=== PATIENT | male | born 1935 | race Caucasian/White ===

== ENCOUNTER → 2017-03-25 | Outpatient (CLI) | payer BC, OTHER ==
[~2017-03-25] MED LIST: ASCO1CAP3 PO; ASCO500T16 PO; ASPI-113 PO; ASPI325T45 PO; ATEN-173 PO; ATEN25TA PO; ATOR-24 PO; B-COCAP2 PO; B-COTAB18 PO; CETI10TA84 PO; CHOL1000 PO; CHOL100027 PO; CRANPOW PO; DOCU100C PO; HMLI SC; INSDGIPEN SC; INSU100I2 SQ; INSU1INJ7 SC; LISI-729 PO; LISI10TA PO; LPT/40 PO; LUCENTIS IO; NITR0.4S UT; NTRGSL/4 UT; OMEG10007 PO; RANI150T3 PO; RANI300T2 PO; TRIA1SPR4; fluticasone PO
[2017-03-25 09:41] LABS: HEMATOCRIT 42.4 % (42-52); MEAN CELL VOLUME 99.1 fL (80-100); MEAN CORPUSCULAR HEMOGLOBIN 33.2 pg (25-34); MEAN CORPUSCULAR HGB CONC 33.5 g/dl (32-36); MEAN PLATELET VOLUME 9.7 fL (7.4-10.4); PLATELET COUNT 143 K/uL (130-400); RED BLOOD COUNT 4.28 M/uL (4.7-6.1); WHITE BLOOD COUNT 3.83 K/uL (4.8-10.8)
[2017-03-25 09:50] LABS: ESTIMATED AVERAGE GLUCOSE 143 mg/dl; HA1C FLAG Normal (Normal)
[2017-03-25 09:59] LABS: BLOOD UREA NITROGEN 22 mg/dl (7-18); BUN/CREATININE RATIO 25.4 (10-20); CALCIUM 9.2 mg/dl (8.5-10.1); CARBON DIOXIDE 31 mmol/L (21-32); CHLORIDE 106 mmol/L (98-107); CREATININE 0.87 mg/dl (0.60-1.40); GLUCOSE 153 mg/dl (70-99); POTASSIUM 4.1 mmol/L (3.5-5.1); SODIUM 140 mmol/L (136-145)
[2017-03-25 10:23] LABS: RATIO 43.4 mcg/mg (0-30.0)
== END | disposition home or self-care (01) ==
LOC: C.LAB 07:28
PROVIDERS: ATTEND Nurse Practitioner Family
DX: E11.49 Type 2 diabetes mellitus with other diabetic neurological complication (principal); I10 Essential (primary) hypertension

== ENCOUNTER 2017-07-04 08:15 | Inpatient (IN) | payer BC, OTHER ==
[~2017-07-04] VITALS: Ht 177.8 cm; Wt 95.6 kg
[~2017-07-04 08:15] MED LIST changes: -ASCO1CAP3 PO; -ASPI325T45 PO; -ATEN-173 PO; -ATOR-24 PO; -B-COTAB18 PO; -CHOL1000 PO; -DOCU100C PO; -INSDGIPEN SC; -INSU100I2 SQ; -LISI-729 PO; -LISI10TA PO; -NTRGSL/4 UT; -RANI150T3 PO
[2017-07-04 09:21] LABS: BASO % 0.5 %; BASO ABS # 0.02 K/uL (0-0.2); COMPLETE YES; EOS % 4.3 %; HEMATOCRIT 40.3 % (42-52); IG% 0.2 %; LYMPH % 25.6 %; LYMPH ABS # 1.06 K/uL (1.2-3.4); MEAN CELL VOLUME 97.6 fL (80-100); MEAN CORPUSCULAR HEMOGLOBIN 34.4 pg (25-34); MEAN CORPUSCULAR HGB CONC 35.2 g/dl (32-36); MEAN PLATELET VOLUME 9.5 fL (7.4-10.4); MONO % 9.7 %; NEUT % 59.7 %; PLATELET COUNT 153 K/uL (130-400); RED BLOOD COUNT 4.13 M/uL (4.7-6.1); WHITE BLOOD COUNT 4.14 K/uL (4.8-10.8)
[2017-07-04 09:28] LABS: BUN/CREATININE RATIO 26.6 (10-20); CALCIUM 8.9 mg/dl (8.5-10.1); CREATININE 0.85 mg/dl (0.60-1.40); POTASSIUM 3.7 mmol/L (3.5-5.1)
[2017-07-04 09:33] LABS: CKMB/CK RATIO 1.3 (0-3.0)
[2017-07-04 09:34] LABS: PROTHROMBIN TIME (PATIENT) 10.7 SECONDS (9.0-12.0)
--- NOTE | 2017-07-04 09:53 | DIAGNOSTIC IMAGING REPORT ---
CHEST ONE VIEW PORTABLE CLINICAL HISTORY: Fever. Chest pain. Sepsis. COMPARISON STUDY: Chest radiograph July 08, 2012. FINDINGS: The patient is rotated. No pneumothorax or pleural effusion is present. Mild cardiomegaly is noted without evidence of pulmonary edema. No consolidation is identified. IMPRESSION: 1. No acute cardiopulmonary findings. 2. Mild cardiomegaly. Electronically signed by: Óscar Stubbs M.D. 07/04/2017 9:51 AM Dictated Date/Time: 07/04/2017 9:50 AM
--- NOTE | 2017-07-04 11:00 | EMERGENCY ROOM VISIT NOTE ---
History Report prepared by Faustoibleeann: Annika Parry Under the Supervision of: Dr. Bruno Cotto D.O. First contact with patient: 09:00 Chief Complaint: CHEST PAIN Stated Complaint: CHEST PAINS, SWEATING Nursing Triage Summary: triage note: pt reports this am at approx 0745 he started to have mid chest pain. pt reports hx of mi in 1999 with one stent placed. History of Present Illness The patient is a 82 year old male who presents to the Emergency Room with complaints of chest pain that started at 0800 this morning. He reports the pain is located in the middle of his chest and rates his discomfort as a 4/10 in severity, describing it as feeling light "tightness". He was sitting in a chair when his pain started. 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 The patient has a history of an PA in 1999 and reports he had one stent placed afterwards. He denies any previous history of atrial fibrillation. His current Psychologist Industrial Organizational is Dr. Yao with [facility]. The patient admits he has been "stretching and working out" recently and is not sure if that is related to his current symptoms. Source of History: patient Onset: 0800 Position: chest Symptom Intensity: 4/10 Quality: other ("tightness") Timing: resolved Review of Systems See HPI for pertinent positives & negatives. A total of 10 systems reviewed and were otherwise negative. Past Medical & Surgical Medical Problems: (1) CALCULUS OF KIDNEY (2) CALCULUS OF URETER (3) CORONARY ATHEROSCLEROSIS OF [place] CORONARY VESSEL (4) DIAB LIZ WO COMPL, TYPE II OR UNSPEC TYPE, NOT UNCNTRLD (5) HYPERLIPIDEMIA NEC/NOS (6) Myocardial infarction (7) Pancytopenia (8) SEPSIS (9) SEPTICEMIA NOS Social History Smoking Status: Former Smoker Alcohol Use: none Allergies Coded Allergies: No Known Allergies (Verified , 07/08/12) Physical Exam Vital Signs Date Time Temp Pulse Resp B/P (MAP) Pulse Ox O2 Delivery O2 Flow Rate FiO2 07/04/17 10:05 52 16 137/68 94 Room Air 07/04/17 09:36 56 152/72 93 Room Air 07/04/17 09:36 93 Room Air 07/04/17 09:04 62 07/04/17 08:32 96 Room Air 07/04/17 08:28 36.7 74 20 183/76 93 Room Air Physical Exam CONSTITUTIONAL/VITAL SIGNS: Reviewed / noted above. GENERAL: Non-toxic in appearance. INTEGUMENTARY: Warm, dry, and [place]. HEAD: Normocephalic. EYES: without scleral icterus or trauma. ENT/OROPHARYNX: clear and moist. LYMPHADENOPATHY/NECK: Is supple without lymphadenopathy or meningismus. RESPIRATORY: Lungs clear and equal. CARDIOVASCULAR: Regular rate and rhythm. GI/ABDOMEN: Soft and nontender. No organomegaly or pulsatile mass. No rebound or guarding. Normal bowel sounds. EXTREMITIES: Warm and well perfused. BACK: No CVA tenderness. NEUROLOGICAL: Intact without focal deficits. PSYCHIATRIC: normal affect. MUSCULOSKELETAL: Normally developed with good muscle tone. Medical Decision & Procedures ER Provider Diagnostic Interpretation: Radiology results as stated below per my review and radiologist interpretation: CHEST ONE VIEW PORTABLE CLINICAL HISTORY: Fever. Chest pain. Sepsis. COMPARISON STUDY: Chest radiograph July 08, 2012. FINDINGS: The patient is rotated. No pneumothorax or pleural effusion is present. Mild cardiomegaly is noted without evidence of pulmonary edema. No consolidation is identified. IMPRESSION: 1. No acute cardiopulmonary findings. 2. Mild cardiomegaly. Electronically signed by: Óscar Stubbs M.D. 07/04/2017 9:51 AM Laboratory Results 07/04/17 08:40 Red Blood Count 4.13, Mean Corpuscular Volume 97.6, Mean Corpuscular Hemoglobin 34.4, Mean Corpuscular Hemoglobin Concent 35.2, Mean Platelet Volume 9.5, Neutrophils (%) (Auto) 59.7, Lymphocytes (%) (Auto) 25.6, Monocytes (%) (Auto) 9.7, Eosinophils (%) (Auto) 4.3, Basophils (%) (Auto) 0.5, Neutrophils # (Auto) 2.47, Lymphocytes # (Auto) 1.06, Monocytes # (Auto) 0.40, Eosinophils # (Auto) 0.18, Basophils # (Auto) 0.02 07/04/17 08:40 Test 07/04/17 08:40 White Blood Count 4.14 K/uL (4.8-10.8) Red Blood Count 4.13 M/uL (4.7-6.1) Hemoglobin 14.2 g/dL (14.0-18.0) Hematocrit 40.3 % (42-52) Mean Corpuscular Volume 97.6 fL (80-100) Mean Corpuscular Hemoglobin 34.4 pg (25-34) Mean Corpuscular Hemoglobin Concent 35.2 g/dl (32-36) Platelet Count 153 K/uL (130-400) Mean Platelet Volume 9.5 fL (7.4-10.4) Neutrophils (%) (Auto) 59.7 % Lymphocytes (%) (Auto) 25.6 % Monocytes (%) (Auto) 9.7 % Eosinophils (%) (Auto) 4.3 % Basophils (%) (Auto) 0.5 % Neutrophils # (Auto) 2.47 K/uL (1.4-6.5) Lymphocytes # (Auto) 1.06 K/uL (1.2-3.4) Monocytes # (Auto) 0.40 K/uL (0.11-0.59) Eosinophils # (Auto) 0.18 K/uL (0-0.5) Basophils # (Auto) 0.02 K/uL (0-0.2) RDW Standard Deviation 47.2 fL (36.4-46.3) RDW Coefficient of Variation 13.4 % (11.5-14.5) Immature Granulocyte % (Auto) 0.2 % Immature Granulocyte # (Auto) 0.01 K/uL (0.00-0.02) Prothrombin Time 10.7 SECONDS (9.0-12.0) Prothromb Time International Ratio 1.0 (0.9-1.1) Activated Partial Thromboplast Time 26.6 SECONDS (21.0-31.0) Partial Thromboplastin Ratio 1.0 Anion Gap 8.0 mmol/L (3-11) Est Creatinine Clear Calc Drug Dose 77.5 ml/min Estimated GFR () 94.0 Estimated GFR (Non- 81.1 BUN/Creatinine Ratio 26.6 (10-20) Calcium Level 8.9 mg/dl (8.5-10.1) Total Bilirubin 0.6 mg/dl (0.2-1) Direct Bilirubin 0.2 mg/dl (0-0.2) Aspartate Amino Transf (AST/SGOT) 21 U/L (15-37) Alanine Aminotransferase (ALT/SGPT) 29 U/L (12-78) Alkaline Phosphatase 78 U/L (45-117) Total Creatine Kinase 198 U/L (39-308) Creatine Kinase MB 2.5 ng/ml (0.5-3.6) Creatine Kinase MB Ratio 1.3 (0-3.0) Troponin I 0.015 ng/ml (0-0.045) Total Protein 6.8 gm/dl (6.4-8.2) Albumin 3.8 gm/dl (3.4-5.0) Lipase 62 U/L (73-393) Laboratory results as stated above per my review. ECG Indication: chest pain Rate (beats per minute): 68 Rhythm: atrial fibrillation Findings: LBBB, no acute ischemic change Comparison ECG Date: Atrial fibrilaltion is new from EKG on 07/08/2012 Change: Repeat EKG on 07/04/2017: Atrial flutter, rate of 55, 3rd degree heart block, variable conduction, left bundle branch block. ED Course 0907: Previous medical records were reviewed. The patient was evaluated in room B5. A complete history and physical examination was performed. 1053: I reevaluated the patient. He is resting comfortably. I discussed my recommendation he stay in the hospital for further evaluation and management and he verbalized complete understanding and agreement. 1055: I discussed the patients case with Dr. Franklin, [facility] Hospitalist. The patient will be further evaluated. Medical Decision The differential was considered includes acute myocardial infarction, acute coronary syndrome, myocarditis, pericarditis, pericardial effusions /tamponade, esophageal perforation, thoracic aortic dissection, pulmonary embolism, pneumonia, pneumothorax, pancreatitis, shingles, acute cholecystitis, perforated abdominal viscus. This is an 82-year-old male who presents to the ED with a chief complaint of tightness in his chest. He states that his symptoms are similar to when he required a stent in 1999. The patient states that his symptoms started around 8 AM today and then ended about 30 minutes after he arrives here. The patient denies a history of atrial fibrillation or atrial flutter. He denies any other associated symptoms. No recent illness or fevers. Does have a history of hypertension and diabetes. The patient's exam was unremarkable other than an irregular heartbeat. His EKGs reveal A. fib/A flutter with a normal rate. This is new onset for the patient. Laboratory studies did not reveal any significant abnormalities. He is not anemic. Troponin was negative. Because of the onset of A. fib/A flutter and chest discomfort similar to his previous cardiac event, he will be seen by the hospitalist for further inpatient evaluation and care. He has seen Dr. Yao in the past. Medication Reconcilliation Current Medication List: was personally reviewed by me Blood Pressure Screening Patient's blood pressure: Elevated blood pressure Blood pressure disposition: Referred to PCP (This will addressed by the hospital medicine team) Consults Time Called: 1053 Consulting Physician: Dr. Franklin, [facility] Hospitalist Returned Call: [phone] I discussed the patients case with Dr. Franklin, [facility] Hospitalist. The patient will be further evaluated. Impression Primary Impression: Retrosternal chest pain Additional Impression: New onset atrial flutter Scribe Attestation The scribe's documentation has been prepared under my direction and personally reviewed by me in its entirety. I confirm that the note above accurately reflects all work, treatment, procedures, and medical decision making performed by me. Departure Information Dispostion Being Evaluated By Hospitalist Referrals Kd Bryant M.D. (PCP) Patient Instructions My [facility] Problem Qualifiers
[2017-07-04] MEDS ORDERED: ASCO1CAP3 PO (11:03)
[2017-07-04] MEDS ORDERED: ATOR-24 PO (11:03)
[2017-07-04] MEDS ORDERED: INSU100I2 SQ (11:03)
[2017-07-04] MEDS ORDERED: LISI-729 PO (11:03)
[2017-07-04] MEDS ORDERED: RANI150T3 PO (11:03)
[2017-07-04] MEDS ORDERED: INSDGIPEN SC (11:03)
[2017-07-04] MEDS ORDERED: CHOL1000 PO (11:03)
[2017-07-04] MEDS ORDERED: OMEG10007 PO (11:03)
[2017-07-04] MEDS ORDERED: ASPI325T45 PO (11:03)
[2017-07-04] MEDS ORDERED: B-COTAB18 PO (11:03)
[2017-07-04] MEDS ORDERED: ATEN-173 PO (11:03)
[2017-07-04] MEDS ORDERED: NTRGSL/4 UT (11:03)
[2017-07-04] MEDS ORDERED: DOCU100C PO (11:19)
[2017-07-04] MEDS ORDERED: ALUMINUM/MAGNESIUM/SIMETH (MAALOX MAX) 30 ML UDC PO PRN (11:45)
[2017-07-04] MEDS ORDERED: GLUCAGON FOR INJ 1 MG VIAL SQ PRN (11:45)
[2017-07-04] MEDS ORDERED: POLYETHYLENE (MIRALAX) 17 GM PACK PO PRN (11:45)
[2017-07-04] MEDS ORDERED: ACETAMINOPHEN 325 MG TAB PO PRN (11:45)
[2017-07-04] MEDS ORDERED: MAGNESIUM HYDROXIDE SUSP 30 ML UDC PO PRN (11:45)
[2017-07-04] MEDS ORDERED: NITROGLYCERIN 0.4 MG SL PER TAB CHARGE UT PRN (11:45)
[2017-07-04] MEDS ORDERED: GLUCOSE 10 TABS/TUBE PO PRN (11:45)
[2017-07-04] MEDS ORDERED: ONDANSETRON INJ 2 MG/ML 2 ML VIAL IV PRN (11:45)
[2017-07-04] MEDS ORDERED: GLUCOSE 40% GEL 15 GM TUBE PO PRN (11:45)
[2017-07-04] MEDS ORDERED: DEXTROSE 50% 50 ML SYR IV PRN (11:45)
[2017-07-04 12:10] VITALS: O2SAT 94; Ht 177.8 cm; Wt 95.6 kg
[2017-07-04 12:15] VITALS: O2SAT 95
--- NOTE | 2017-07-04 12:17 | History and Physical ---
History & Physical Date & Time of Service: Jul 04, 2017 at 11:54 Chief Complaint: Chest Pains, Sweating Primary Care Physician: Kd Bryant M.D. History of Present Illness Source: patient, family (son at bedside), clinic records, hospital records This is an 82 y/o male with a history of CAD, MT s/p LAD stent in 1999, HTN, HLD , DM II, h/o BCC, chronic leukopenia, and GERD who presented to the ED on 07/04 with chest pain. The patient states that he developed chest pain around 0800 this morning while sitting down. He described the pain as a 3 or 4 out of 10 tightness in the middle of his chest that did not radiate. The pain lasted for about 45 minutes and has now resolved. He also complained of associated diaphoresis but denied associated shortness of breath, nausea/vomiting, numbness or tingling. The patient reports intermittent productive cough and wheezing, which he associates more with his GERD. The patient did have a previous MT and stated that his symptoms today felt similar enough to the MT that he was concerned, prompting him to come to the ED. His previous MT resulted in a cardiac cath revealing 90% stenosis of the LAD where 1 stent was placed. The patient has since followed with Dr. Yao and has not had any other cardiac issues since. He denies any recent stress tests or catheterizations. The patient denies fevers, chills, palpitations, claudication, shortness of breath, nausea, vomiting, abdominal pain, dysuria, hematuria, urinary retention , paralysis, weakness, numbness and tingling. Past Medical/Surgical History Medical Problems: (1) CALCULUS OF KIDNEY Status: Resolved (2) CALCULUS OF URETER Status: Resolved (3) CORONARY ATHEROSCLEROSIS OF [place] CORONARY VESSEL Status: Chronic (4) DIAB LIZ WO COMPL, TYPE II OR UNSPEC TYPE, NOT UNCNTRLD Status: Chronic (5) HYPERLIPIDEMIA NEC/NOS Status: Chronic (6) Myocardial infarction s/p LAD stent in 1999 Status: Resolved (7) Pancytopenia Status: Chronic (8) SEPSIS Status: Resolved (9) SEPTICEMIA NOS Status: Resolved HTN HLD H/o BCC GERD Family History Diabetes mellitus Hypertension Lung cancer Myocardial infarction Pancreatic cancer Stroke Social History Smoking Status: Former Smoker (smoked for only 4 years from [id number]) Smokeless Tobacco Use: No Alcohol Use: none Drug Use: none Marital Status: Housing status: lives alone Occupational Status: retired Immunizations History of Influenza Vaccine: No History of Tetanus Vaccine?: UTD History of Pneumococcal: Yes History of Hepatitis B Vaccine: Unknown Multi-Drug Resistant Organisms History of MDRO: No Allergies Coded Allergies: Sulfa Antibiotics (Unverified Allergy, Unknown, UNKNOWN BY PATIENT, ) Home Medications Scheduled Ascorbic Acid (Vitamin C), 500 MG PO DAILY Aspirin (Aspirin), 325 MG PO DAILY Atenolol (Tenormin), 25 MG PO DAILY Atorvastatin (Lipitor), 40 MG PO QPM B-Complex Vitamins (Vitamin B Complex), 1 TAB PO DAILY Cholecalciferol (Vitamin D3), 1,000 UNITS PO DAILY Docusate Sodium (Stool Softener), 100 MG PO DAILY Fish Oil ([place]-3), 1 CAP PO DAILY Insulin Glargine (Lantus Solostar), 24 UNITS SC QPM Lisinopril (Zestril), 5 MG PO DAILY Ranitidine Hcl (Zantac), 150 MG PO BID Scheduled PRN Insulin Lispro (Human) (Humalog Kwikpen), 1 DOSE SQ ACHS PRN for PER SLIDING SCALE Nitroglycerin (Nitrostat), 0.4 MG UT PRN PRN for CHEST PAIN Review of Systems Constitutional: + sweats, No fever, No chills, No weakness, No fatigue Eyes: No worsening of vision, No eye pain, No diplopia ENT: No hearing loss, No sore throat, No trouble swallowing Respiratory: + cough (intermittent), + sputum (clear), + wheezing (intermittent ), No shortness of breath Cardiovascular: + chest pain (resolved), No claudication, No palpitations Abdomen: No pain, No nausea, No vomiting Musculoskeletal: No joint pain, No muscle pain, No calf pain Genitourinary - Male: No hematuria, No dysuria, No urinary retention Neurologic: No paralysis, No weakness, No numbness/tingling Integumentary: No rash, No itch, No color change Physical Exam Vital Signs Date Time Temp Pulse Resp B/P (MAP) Pulse Ox O2 Delivery O2 Flow Rate FiO2 07/04/17 10:05 52 16 137/68 94 Room Air 07/04/17 09:36 56 152/72 93 Room Air 07/04/17 09:36 93 Room Air 07/04/17 09:04 62 07/04/17 08:32 96 Room Air 07/04/17 08:28 36.7 74 20 183/76 93 Room Air General appearance: +Obese. Well-developed, well-nourished, no apparent distress Head: Normocephalic, atraumatic Eyes: Normal inspection, PERRL, EOMI ENT: Normal ENT inspection, hearing grossly normal, pharynx normal Neck: Supple, no JVD, trachea midline Respiratory/Chest: +Crackles in bases bilaterally. Normal breath sounds, no respiratory distress Cardiovascular: +Irregularly irregular, bradycardic. Systolic murmur. No gallop Abdomen/GI: Normal bowel sounds, non-tender, soft Extremities/Musculoskeletal: +Trace pitting edema. Normal inspection, no calf tenderness Neurological/Psych: Alert, normal mood/affect, oriented x 3 Skin: Normal color, warm/dry, no rash Diagnostics Laboratory Results Results Past 24 Hours Test 07/04/17 08:40 07/04/17 11:41 Range/Units White Blood Count 4.14 4.8-10.8 K/uL Red Blood Count 4.13 4.7-6.1 M/uL Hemoglobin 14.2 14.0-18.0 g/dL Hematocrit 40.3 42-52 % Mean Corpuscular Volume 97.6 80-100 fL Mean Corpuscular Hemoglobin 34.4 25-34 pg Mean Corpuscular Hemoglobin Concent 35.2 32-36 g/dl Platelet Count 153 130-400 K/uL Mean Platelet Volume 9.5 7.4-10.4 fL Neutrophils (%) (Auto) 59.7 % Lymphocytes (%) (Auto) 25.6 % Monocytes (%) (Auto) 9.7 % Eosinophils (%) (Auto) 4.3 % Basophils (%) (Auto) 0.5 % Neutrophils # (Auto) 2.47 1.4-6.5 K/uL Lymphocytes # (Auto) 1.06 1.2-3.4 K/uL Monocytes # (Auto) 0.40 0.11-0.59 K/uL Eosinophils # (Auto) 0.18 0-0.5 K/uL Basophils # (Auto) 0.02 0-0.2 K/uL RDW Standard Deviation 47.2 36.4-46.3 fL RDW Coefficient of Variation 13.4 11.5-14.5 % Immature Granulocyte % (Auto) 0.2 % Immature Granulocyte # (Auto) 0.01 0.00-0.02 K/uL Prothrombin Time 10.7 9.0-12.0 SECONDS Prothromb Time International Ratio 1.0 0.9-1.1 Activated Partial Thromboplast Time 26.6 21.0-31.0 SECONDS Partial Thromboplastin Ratio 1.0 Sodium Level 141 136-145 mmol/L Potassium Level 3.7 3.5-5.1 mmol/L Chloride Level 109 98-107 mmol/L Carbon Dioxide Level 24 21-32 mmol/L Anion Gap 8.0 3-11 mmol/L Blood Urea Nitrogen 23 7-18 mg/dl Creatinine 0.85 0.60-1.40 mg/dl Est Creatinine Clear Calc Drug Dose 77.5 ml/min Estimated GFR () 94.0 Estimated GFR (Non- 81.1 BUN/Creatinine Ratio 26.6 10-20 Random Glucose 168 70-99 mg/dl Calcium Level 8.9 8.5-10.1 mg/dl Total Bilirubin 0.6 0.2-1 mg/dl Direct Bilirubin 0.2 0-0.2 mg/dl Aspartate Amino Transf (AST/SGOT) 21 15-37 U/L Alanine Aminotransferase (ALT/SGPT) 29 12-78 U/L Alkaline Phosphatase 78 45-117 U/L Total Creatine Kinase 198 39-308 U/L Creatine Kinase MB 2.5 0.5-3.6 ng/ml Creatine Kinase MB Ratio 1.3 0-3.0 Troponin I 0.015 0-0.045 ng/ml Total Protein 6.8 6.4-8.2 gm/dl Albumin 3.8 3.4-5.0 gm/dl Lipase 62 73-393 U/L Diagnostic Radiology Reviewed the following studies and agree with interpretation as follows: Patient Name: JANAE SOW Unit Number: [id number] Dictated: 07/04/17949 Transcribed: 07/04/17949 JA Printed Date/Time: [~ rep prt dt]/[~ rep prt tm] [~ rep ct labl] - [~ rep ct ivnm] [facility] [address] [place] [address] Dictated: 07/04/17 0950 Transcribed: 07/04/17 0950 JA Printed Date/Time: [~ rep prt dt]/[~ rep prt tm] [~ rep ct labl] - [~ rep ct ivnm] Patient: JANAE SOW Address1: [address] [facility] Rec: [id number] Address2: Acct ID: [id number] [facility] Zip: [place] [address] Date: 1935 Sex: M Room/Bed: Ref Phy: Nader Yao M.D. SC: C.[facility]B Att Phy: Report #: [id number] Sylvia Phy: Kd Bryant M.D. Test: CXR1P Admit Phy: Yarder Puncher: MICKY Interpreting Phy: Óscar Stubbs MD Diagnosis: CHEST PAINS, SWEATING Ordering Phy: rBuno Cotto D.O. Service Date: 07/04/17 Admit Date: 07/04/17 MNE: [id number] CONF: DICTATED BY: Óscar Stubbs MD]] CC: Kd Bryant M.D. Mishock, Kevin, D.O. Zoda, Albert R M.D. Endcc: [~ rep ct add3]] CHEST ONE VIEW PORTABLE CLINICAL HISTORY: Fever. Chest pain. Sepsis. COMPARISON STUDY: Chest radiograph July 08, 2012. FINDINGS: The patient is rotated. No pneumothorax or pleural effusion is present. Mild cardiomegaly is noted without evidence of pulmonary edema. No consolidation is identified. IMPRESSION: 1. No acute cardiopulmonary findings. 2. Mild cardiomegaly. Electronically signed by: Óscar Stubbs M.D. 07/04/2017 9:51 AM Dictated Date/Time: 07/04/2017 9:50 AM The status of this report is Signed. Draft = Not yet reviewed or approved by Radiologist. Signed = Reviewed and approved by Radiologist. <AttendingPhy></AttendingPhy> <FamilyPhy>Nader Yao M.D.</FamilyPhy> < PrimaryPhy>Kd Bryant M.D.</PrimaryPhy> <UnitNumber>[id number]</UnitNumber> <VisitNumber>[id number]</VisitNumber> <PatientName>JANAE SOW</PatientName > <DateOfBirth>1935</DateOfBirth> <Location>[facility]</Location> <ServiceDate> 07/04/17</ServiceDate> <MNE>ESINDI</MNE> <OrderingPhy>Bruno Cotto D.O.</ OrderingPhy> <OrderingPhyMNE>f rep ord dr bynum</OrderingPhyMNE> <DictatingPhyMNE> f rep dict dr bynum</DictatingPhyMNE> <CCListMNE>f rep ct misa</CCListMNE> < AdmittingPhyMNE>f pt admit dr bynum</AdmittingPhyMNE> <AttendingPhyMNE>f pt attend dr bynum</AttendingPhyMNE> <ConsultingPhyMNE>f pt consult dr bynum</ConsultingPhyMNE> <FamilyPhyMNE>f pt fam dr bynum</FamilyPhyMNE> <OtherPhyMNE>f pt other dr bynum</OtherPhyMNE> < PrimaryPhyMNE>f pt prim care dr bynum</PrimaryPhyMNE> <ReferringPhyMNE>f pt referring dr bynum</ReferringPhyMNE> EKG Reviewed EKG and agree with interpretation as follows: 68 bpm, atrial fibrillation, LBBB (old) 55 bpm, a-flutter, LBBB Impression Assessment and Plan 82 y/o male with a history of CAD, MT s/p LAD stent in 1999, HTN, HLD, DM II, h/ o BCC, chronic leukopenia, and GERD who presented to the ED on 07/04 with chest pain. Chest pain resolved in ED. Pt afebrile, VSS on arrival. Initial EKG shows new onset a-fib, repeat EKG shows a-flutter. CXR shows no acute disease. Cardiac enzymes negative. WBC 4.14, which is around his baseline. Chest pain, new onset a-flutter -Admit to telemetry for observation for now, may later require full admission -Trend cardiac enzymes q8h x 3 sets, first set negative -Consult cardiology. Pt follows with Dr. Yao. Appreciate recs -Echocardiogram ordered -Anticoagulate with Lovenox 1 mg/kg SC q12h -Lipid panel in the am -Check magnesium and TSH -Pt having some trouble with cutting his atenolol tablets in half, states it isn 't always consistent -Switch atenolol to Lopressor 12.5 mg PO BID. Hold if SBP less than 100 or HR less than 60 -NPO after midnight in case of stress test CAD, h/o MT s/p stent in 1999, HTN, HLD -Continue ASA 325 mg PO qd, Lopressor as above, atorvastatin 40 mg PO qpm DM II--last HgbA1c checked 03/25/17 was 6.6 -Continue Lantus 24 units SC qpm -Insulin sliding scale -Check BSGs q ac and qhs -Recheck HgbA1c H/o BCC, chronic leukopenia--was following with Dr. Smith, discharged from service in 2016 as has been stable for several years -WBC 4.14, around baseline -Continue to monitor CBC GERD -Continue Zantac 150 mg PO BID DVT prophylaxis -Lovenox as above -TIA abreu and SCDs Code Status -Level V, DO NOT RESUSCITATE PA Physician Supervision Note: I interviewed and examined the patient. Discussed with Rebekah Leonard PAC and agree with findings and plan as documented in the note. Any exceptions or clarifications are listed here: None Patient presents with chest pain reminiscent of his previous MT, 17 years ago this is associated with mild diaphoresis. He was found to have a flutter on his EKG which is new for him he otherwise has no abnormalities of ST or T-wave or biomarkers His vital signs show mild bradycardia times but controlled ventricular rate sign his heart is irregularly irregular with no murmurs his lungs are clear without wheezes or crackles and he has no JVD Patient here with chest pain with a history of coronary disease and new found atrial fib flutter Patient is rate controlled with a beta ramona currently however he's having difficulty cutting his atenolol in half we'll change him to metoprolol continue aspirin institute enoxaparin for thromboembolic prevention, cardiology consult. There is diabetes contain basal bolus and check an A1c Regarding his constipation continue outpatient medications DVT prevention is based upon an enoxaparin Documented By: Gennaro Franklin Level of Care Telemetry Resuscitation Status DO NOT RESUSCITATE VTE Prophylaxis VTE Risk Assessment Done? Y/N: Yes Risk Level: High Given or contraindicated: Unfractionated heparin SQ, T.E.D. Stockings, SCD's
[2017-07-04 12:42] LABS: ESTIMATED AVERAGE GLUCOSE 140 mg/dl; HA1C FLAG Normal (Normal)
[2017-07-04 12:48] LABS: MAGNESIUM 2.1 mg/dl (1.8-2.4); THYROID STIMULATING HORMONE 1.37 uIu/ml (0.300-4.500)
[2017-07-04] MEDS ORDERED: INSULIN ASPART 100 UNITS/ML 3 ML PEN SC SCH (13:15)
[2017-07-04] MEDS: ENOXAPARIN 100 MG/1ML SYR SQ SCH ×2 (14:12→23:57)
[2017-07-04] MEDS: INSULIN ASPART 100 UNITS/ML 3 ML PEN SC SCH ×2 (16:48→20:42)
[2017-07-04 16:58] LABS: CKMB/CK RATIO 1.5 (0-3.0)
--- NOTE | 2017-07-04 17:04 | CARDIOLOGY CONSULTATION ---
DATE OF CONSULTATION: 07/04/2017 DATE OF CONSULTATION: 07/04/2017 PRIMARY PHYSICIAN: Kd Bryant M.D. ATTENDING AND REFERRING PHYSICIAN: Gennaro Franklin M.D. CONSULTATION: Nader Yao M.D. HISTORY OF PRESENT ILLNESS: The patient is an 82-year-old white male. Longstanding history of coronary artery disease. Cardiac catheterization performed in April of 2000 at [facility] for unstable angina revealed a 90% early mid LAD stenosis, mild atherosclerotic disease of the RCA and left circumflex. Status post LAD stent at that time. Most recent stress test was in 2005. LV ejection fraction 55%. Questionable small nontransmural infarct involving the anterior septum without ischemia. The patient has a history of chronic left bundle branch block. Past medical history also significant for type 2 diabetes mellitus, dyslipidemia, chronic leukopenia, neck irradiation in childhood, central retinal vein occlusion right eye followed at the [facility], and history of E. coli urosepsis July 2010. The patient was in his usual state of health until approximately 1 week ago. He states that since then he has had a few episodes of vague bilateral upper chest discomfort with exertion. No associated symptoms. Relief with rest. He has recently had stable exercise tolerance and stamina. No unusual dyspnea with his activities. No dyspnea with his normal activities or at rest. This morning while at rest, he developed a left lower parasternal tightness. No radiation. No associated symptoms. The episode lasted for approximately 1 hour. Because of this complaint he came to the Emergency Department for evaluation. By the time he arrived in the Emergency Department, the discomfort had resolved. An electrocardiogram performed at 9:01 a.m. today did reveal atrial fibrillation with slow ventricular response. Ventricular rate 55 beats per minute. The patient has no prior history of atrial arrhythmias. Because of his chest discomfort and atrial arrhythmia, he was admitted to the telemetry unit. The patient denies any palpitations. No lightheadedness or syncope. No orthopnea or PND. No leg pain or edema. No symptoms suggestive of a thromboembolic event. No cerebrovascular or peripheral vascular complaints. No bleeding complaints. Postnasal drip type symptoms. He states his eyesight has actually improved over the past year. As stated above, he does undergo followup at the [facility] in [place], [place]. Occasional nonproductive cough at night which he attributes to his postnasal drip and reflux. No abdominal discomfort. No GI symptoms. Good appetite. No symptoms of GI bleeding. No other bleeding complaints. No urinary complaints. No unusual myalgias or muscle weakness. ALLERGIES AND ADVERSE DRUG REACTIONS: SULFA ANTIBIOTICS. CURRENT MEDICATIONS: Aspirin 325 mg daily, vitamin D 1000 units daily, docusate sodium 100 mg daily, fish oil 1 gram daily, lisinopril 5 mg daily, atorvastatin 40 mg daily, Lantus insulin 23 units q.p.m., ranitidine 150 mg b.i.d., metoprolol tartrate 12.5 mg b.i.d., enoxaparin 100 mg subQ q. 12 hours, and several p.r.n. medications. PAST MEDICAL HISTORY: 1. Coronary artery disease as above. 2. Type 2 diabetes mellitus. 3. Dyslipidemia. 4. Hypertension. 5. History of laryngopharyngeal reflux. 6. Leukopenia. 7. History of nephrolithiasis. 8. History of nontoxic multinodular goiter. 9. History of reactive airway disease. 10. Vitamin D deficiency. 11. Chronic rhinitis. 12. History of allergic rhinitis. 13. Status post radiation of neck during childhood. PAST SURGICAL HISTORY: 1. LAD stent as above. 2. Status post Mohs surgery. 3. Status post arthroscopic knee surgery. 4. Status post tonsillectomy. 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 He is . He smoked cigarettes for 5 years in 1960s. He does not drink alcohol. FAMILY HISTORY: History of coronary artery disease in his brother who is 2 years younger than him. His father had history of coronary artery disease. He subsequently of pancreatic cancer. His mother secondary to congestive heart failure. REVIEW OF SYSTEMS: Ten point review of systems negative other than for that reported above. PHYSICAL EXAMINATION: GENERAL: The patient is sitting up in bed. No distress. VITAL SIGNS: Revealed pulse 48 beats per minute. Blood pressure 134/79, pulse oximetry room air 95%. HEAD: Normal. EYES: Pupils equal and round. Anicteric. Conjunctivae normal. NECK: No jugular venous distension. Carotids 2/2 bilaterally. Normal upstroke. No bruits. LUNGS: Clear. Normal respiratory effort. No rales or wheezes. HEART: PMI normal. No lifts or heaves. At the time of my exam, he was in a regular rhythm. The monitor was checked thereafter and showed him to be in sinus bradycardia. S1, S2 normal. No S3 or S4. No murmur or rub. ABDOMEN: Soft. Nontender. No palpable masses or organomegaly. Normal bowel sounds. No bruits. EXTREMITIES: No pretibial edema. No cyanosis or clubbing. No calf tenderness. NEUROLOGIC: Alert and oriented x3. Motor grossly intact. PSYCHIATRIC: Affect normal. PULSES: Distal pulses in all extremities palpable. SKIN: No rashes noted. DATA: Electrocardiogram performed at 9:01 a.m. with coarse atrial fibrillation. Ventricular rate 55 beats per minute. Intraventricular conduction delay. Chest x-ray this morning revealed no evidence of heart failure. No infiltrate. LABORATORY DATA: This morning with WBC 4.14, hemoglobin 14.2, hematocrit 40.3, platelet count 153. INR 1.0. PTT 26.6. Metabolic profile -- sodium 141, potassium 3.7, chloride 109, carbon dioxide 24, BUN 23, creatinine 0.85, random glucose 168. AST and ALT normal. CK total 198 with MB of 2.5. Troponin I 0.015. TSH 1.370. Magnesium 2.1. Hemoglobin A1c 6.5. ASSESSMENT: 1. Prolonged episode of lower parasternal chest discomfort this morning. Spontaneous resolution. Electrocardiogram nondiagnostic because of the intraventricular conduction delay. He has a longstanding history of an intraventricular conduction delay. Over the past week he has also been experiencing bilateral upper chest discomfort with exertion. With his history of coronary artery disease, certainly have to be concerned regarding myocardial ischemia as etiology for his chest complaints. Initial cardiac enzymes negative for myocardial injury. 2. New onset atrial fibrillation. No prior history of atrial arrhythmias. He has spontaneously converted to sinus rhythm since transfer from the ED to the telemetry unit. 3. No symptoms suggestive of thromboembolic event. 4. Probable etiology for atrial fibrillation is his age and history of hypertension. His magnesium, potassium, and TSH are normal. 5. His [id number] score is 5. This puts him at high risk for thromboembolic event from his atrial fibrillation. The antithrombotic recommendation with this is oral anticoagulation. Yearly risk of stroke is estimated in him at 6.7%. 6. Normal overall left ventricular systolic function in the past. No signs or symptoms of congestive heart failure at this time. 7. Dyslipidemia. 8. Hypertension. 9. Type 2 diabetes mellitus. RECOMMENDATIONS: 1. Continue with anticoagulation at this time with enoxaparin. 2. Serial cardiac enzymes. 3. If his cardiac enzymes remain negative could then consider performing stress testing. In light of his IVCD a myocardial perfusion scan would be more practical than a stress echocardiogram. 4. Check resting echocardiogram. 5. If his cardiac enzymes become elevated, would recommend a repeat cardiac catheterization. 6. Based on his elevated risk for a thromboembolic event from atrial fibrillation and as his atrial fibrillation was asymptomatic (in regards to palpitations) would recommend long-term oral anticoagulation. He would be a candidate for a novel oral anticoagulant. 7. If he did undergo a stress test and it revealed evidence of significant myocardial ischemia, would also then recommend cardiac catheterization. Thank you for asking us to see this patient in cardiology consultation.
[2017-07-04 19:28] VITALS: BP 116/62; PULSE 50; TEMP 36.8; O2SAT 94
[2017-07-04] MEDS: ATORVASTATIN 40 MG TAB PO SCH (20:42)
[2017-07-04] MEDS: RANITIDINE HCL 150 MG TAB PO SCH (20:42)
[2017-07-04] MEDS: METOPROLOL TARTRATE 25 MG TAB PO SCH (20:42)
[2017-07-04] MEDS: INSULIN GLARGINE SOLOSTAR 100 UNITS/ML 3 ML PEN SC SCH (20:44)
[2017-07-04 23:54] VITALS: BP 153/70; PULSE 54; TEMP 36.7; O2SAT 94
[2017-07-05 01:06] LABS: CKMB/CK RATIO 1.6 (0-3.0)
[2017-07-05 04:05] VITALS: BP 147/68; PULSE 44; TEMP 36.6; O2SAT 96
[2017-07-05 06:19] LABS: HEMATOCRIT 37.4 % (42-52); MEAN CELL VOLUME 97.1 fL (80-100); MEAN PLATELET VOLUME 8.9 fL (7.4-10.4); PLATELET COUNT 124 K/uL (130-400); RED BLOOD COUNT 3.85 M/uL (4.7-6.1); WHITE BLOOD COUNT 3.76 K/uL (4.8-10.8)
[2017-07-05 06:56] LABS: BUN/CREATININE RATIO 26.6 (10-20); CALCIUM 8.6 mg/dl (8.5-10.1); CREATININE 0.82 mg/dl (0.60-1.40)
[2017-07-05 06:57] LABS: CHOLESTEROL/HDL RATIO 2.5
[2017-07-05 07:31] VITALS: BP 181/84; PULSE 55; TEMP 36.6; O2SAT 94
[2017-07-05] MEDS: INSULIN ASPART 100 UNITS/ML 3 ML PEN SC SCH ×4 (07:47→20:46)
[2017-07-05] MEDS: METOPROLOL TARTRATE 25 MG TAB PO SCH ×2 (08:05→20:46)
[2017-07-05] MEDS: CHOLECALCIFEROL 1000 INTER.UNIT TAB PO SCH (08:09)
[2017-07-05] MEDS: RANITIDINE HCL 150 MG TAB PO SCH ×2 (08:09→20:46)
[2017-07-05] MEDS: OMEGA-3 (PURIFIED FISH OIL) 1 GM CAP PO SCH (08:10)
[2017-07-05] MEDS: DOCUSATE SODIUM 100 MG CAP PO SCH (08:10)
[2017-07-05] MEDS: ASPIRIN 325 MG ECTAB PO SCH (08:10)
[2017-07-05] MEDS ORDERED: LISINOPRIL 5 MG TAB PO SCH (09:00)
--- NOTE | 2017-07-05 10:21 | ECHOCARDIOGRAM REPORT ---
*NOTICE TO RECEIVING [employer] AGENCY This information is strictly Confidential and protected under [place] law. [place] law prohibits you from making any further disclosure of this information unless further disclosure is expressly permitted by the written consent of the person to whom it pertains or is authorized by law. A general authorization for the release of medical or other information is not sufficient for this purpose. Hospital accepts no responsibility if the information is made available to any other person, INCLUDING THE PATIENT. Interpretation Summary * Name: JANAE SOW Study Date: 07/05/2017 06:48 AM BP: 134/79 mmHg * Patient Location: C.2T\S\S240\S\1 HR: 48 * : 1935 (M/d/yyyy) Gender: Male Height: 70 in * Age: 82 yrs Ethnicity: CA Weight: 209 lb * Ordering Physician: Rebekah Leonard * Referring Physician: Self, Referred * Performed By: Giovanna Alfaro RDCS * * Reason For Study: A-flutter, chest pain * BSA: 2.1 m2 * Normal biventricular systolic function. * Mild concentric left ventricular hypertrophy. * Type I left ventricular diastolic dysfunction. * Mild left atrial dilatation. * Mild ascending aortic dilatation. * Trace aortic and pulmonic regurgitation. * Mild mitral and tricuspid regurgitation. * Aortic valve sclerosis with mild stenosis. * Mildly elevated estimated right ventricular systolic pressure. Procedure Details * A complete two-dimensional transthoracic echocardiogram was performed (2D, M-mode, Doppler and color flow Doppler). Left Ventricle * The left ventricle is normal in size. * There is mild concentric left ventricular hypertrophy. * Ejection Fraction = 55-60%. * Left ventricular systolic function is normal. * A full diastolic examination was done with clinical findings of Class I diastolic dysfunction. * The left ventricular wall motion is normal. Right Ventricle * The right ventricle is normal in size and function. Atria * The left atrium is mildly dilated. * Right atrial size is normal. * No ASD detected; PFO is not assessed. Mitral Valve * There is mild mitral annular calcification. * There is no mitral valve stenosis. * There is mild mitral regurgitation. Tricuspid Valve * The tricuspid valve is normal. * There is mild tricuspid regurgitation. * Right ventricular systolic pressure is elevated at 30-40mmHg. Aortic Valve * The aortic valve is trileaflet. * The valve is calcified and has decreased but adequate opening on 2 D imaging. * Mild valvular aortic stenosis. * Aortic valve area was calculated at 1.5 cm\S\2 using the continuity equation. * Dimensionless valve index 0.46. * Trace aortic regurgitation. Pulmonic Valve * The pulmonic valve is not well visualized. * The pulmonary valve is inadequately visualized, but the Doppler data is adequate for interpretation. * There is no pulmonic valvular stenosis. * Trace pulmonic valvular regurgitation. Great Vessels * The aortic root is normal size. * Mildly dilated ascending aorta. Pericardium/Pleural * There is no pericardial effusion. Great Vessels * Normal inferior vena cava diameter and respiratory variation suggests normal central venous pressure. MMode 2D Measurements and Calculations IVSd 1.2 cm LVIDd 4.4 cm LVIDs 3.0 cm LVPWd 1.3 cm IVS/LVPW 0.92 FS 31.1 % EDV(Teich) 86.5 ml ESV(Teich) 35.4 ml EF(Teich) 59.1 % EDV(cubed) 83.7 ml ESV(cubed) 27.4 ml EF(cubed) 67.3 % LV mass(C)d 190.1 grams LV mass(C)dI 89.4 grams/m\S\2 CO(Teich) 2.9 l/min CI(Teich) 1.4 l/min/m\S\2 SV(Teich) 51.1 ml SI(Teich) 24.0 ml/m\S\2 CO(cubed) 3.2 l/min CI(cubed) 1.5 l/min/m\S\2 SV(cubed) 56.4 ml SI(cubed) 26.5 ml/m\S\2 Ao root diam 3.6 cm Ao root area 9.9 cm\S\2 ACS 1.3 cm LA dimension 4.0 cm asc Aorta Diam 4.2 cm LA/Ao 1.1 LVOT diam 2.0 cm LVOT area 3.3 cm\S\2 LVAd ap4 30.9 cm\S\2 LVLd ap4 8.2 cm EDV(MOD-sp4) 96.3 ml LVAs ap4 18.3 cm\S\2 LVLs ap4 7.2 cm ESV(MOD-sp4) 40.4 ml EF(MOD-sp4) 58.0 % LVAd ap2 33.8 cm\S\2 LVLd ap2 7.9 cm EDV(MOD-sp2) 120.0 ml LVAs ap2 19.6 cm\S\2 LVLs ap2 6.5 cm ESV(MOD-sp2) 48.5 ml EF(MOD-sp2) 59.6 % CO(MOD-sp4) 3.2 l/min CI(MOD-sp4) 1.5 l/min/m\S\2 SV(MOD-sp4) 55.9 ml SI(MOD-sp4) 26.3 ml/m\S\2 CO(MOD-sp2) 4.1 l/min CI(MOD-sp2) 1.9 l/min/m\S\2 SV(MOD-sp2) 71.5 ml SI(MOD-sp2) 33.6 ml/m\S\2 Doppler Measurements and Calculations MV E max kaleb 82.0 cm/sec MV A max kaleb 84.4 cm/sec MV E/A 0.97 MV dec time 0.17 sec Ao V2 max 187.6 cm/sec Ao max PG 14.1 mmHg Ao max PG (full) 11.1 mmHg Ao V2 mean 126.7 cm/sec Ao mean PG 7.3 mmHg Ao V2 VTI 44.2 cm POLO(V,A) 1.5 cm\S\2 POLO(V,D) 1.5 cm\S\2 LV V1 max PG 3.0 mmHg LV V1 max 86.3 cm/sec SV(Ao) 439.2 ml SI(Ao) 206.5 ml/m\S\2 PA V2 max 115.3 cm/sec PA max PG 5.3 mmHg PA acc slope 635.8 cm/sec\S\2 PA acc time 0.09 sec PI end-d kaleb 128.6 cm/sec TR max kaleb 290.0 cm/sec PA pr(Accel) 37.8 mmHg
[2017-07-05 11:24] VITALS: BP 174/77; PULSE 47; TEMP 36.7; O2SAT 95
[2017-07-05] MEDS: ENOXAPARIN 100 MG/1ML SYR SQ SCH ×2 (12:33→23:32)
--- NOTE | 2017-07-05 12:58 | Progress Note ---
Subjective Date of Service: Jul 05, 2017. Subjective Pt evaluation today including: conversation w/ patient, conversation w/ family , physical exam, chart review, lab review, review of studies, conversation w/ solar sales consultant No further chest pain Resting comfortably in bed Family at bedside Problem List Medical Problems: (1) New onset atrial flutter Status: Acute (2) Retrosternal chest pain Status: Acute Review of Systems Constitutional: No fever, No chills, No sweats, No weight loss, No weakness ENT: No hearing loss, No unusual epistaxis, No nasal symptoms, No sore throat Respiratory: No cough, No sputum, No wheezing, No shortness of breath, No dyspnea on exertion Cardiac: No chest pain, No orthopnea, No PND, No edema, No claudication Abdomen: No pain, No nausea, No vomiting, No diarrhea, No constipation Musculoskeletal: No joint pain, No muscle pain, No swelling, No calf pain Male : No dysuria, No urinary frequency, No incontinence, No slowing stream Neurologic: No memory loss, No paralysis, No weakness, No numbness/tingling Psychiatric: No depression symptoms, No anhedonism, No anxiety, No insomnia Endo: No fatigue, No excessive thirst Skin: No rash, No itch Objective Vital Signs Date Time Temp Pulse Resp B/P (MAP) Pulse Ox O2 Delivery O2 Flow Rate FiO2 07/05/17 12:00 Room Air 07/05/17 11:24 36.7 47 18 174/77 (109) 95 Room Air 07/05/17 08:00 Room Air 07/05/17 07:31 36.6 55 19 181/84 (116) 94 Room Air 07/05/17 04:05 36.6 44 16 147/68 (94) 96 Room Air 07/05/17 04:00 Room Air 07/05/17 00:00 Room Air 07/04/17 23:54 36.7 54 18 153/70 (97) 94 Room Air 07/04/17 20:00 Room Air 07/04/17 19:28 36.8 50 18 116/62 (80) 94 Room Air 07/04/17 16:00 Room Air Physical Exam General Appearance: WD/WN, no apparent distress Eyes: normal inspection, PERRL, EOMI, sclerae normal Neck: supple, no adenopathy, thyroid normal, no JVD Respiratory/Chest: chest non-tender, lungs clear, normal breath sounds, no respiratory distress Cardiovascular: regular rate, rhythm, no edema, no gallop, no JVD Abdomen: normal bowel sounds, non tender, soft, no organomegaly Neurologic/Psychiatric: no motor/sensory deficits, alert, normal mood/affect, oriented x 3 Laboratory Results Last 24 Hours Test 07/04/17 13:03 07/04/17 16:14 07/04/17 16:21 07/04/17 19:39 Bedside Glucose 118 mg/dl 144 mg/dl 122 mg/dl Total Creatine Kinase 144 U/L Creatine Kinase MB 2.1 ng/ml Creatine Kinase MB Ratio 1.5 Troponin I 0.022 ng/ml Test 07/05/17 00:30 07/05/17 06:03 07/05/17 07:20 07/05/17 11:10 Total Creatine Kinase 111 U/L Creatine Kinase MB 1.8 ng/ml Creatine Kinase MB Ratio 1.6 Troponin I 0.018 ng/ml White Blood Count 3.76 K/uL Red Blood Count 3.85 M/uL Hemoglobin 13.1 g/dL Hematocrit 37.4 % Mean Corpuscular Volume 97.1 fL Mean Corpuscular Hemoglobin 34.0 pg Mean Corpuscular Hemoglobin Concent 35.0 g/dl RDW Standard Deviation 47.5 fL RDW Coefficient of Variation 13.4 % Platelet Count 124 K/uL Mean Platelet Volume 8.9 fL Sodium Level 141 mmol/L Potassium Level 4.0 mmol/L Chloride Level 110 mmol/L Carbon Dioxide Level 28 mmol/L Anion Gap 3.0 mmol/L Blood Urea Nitrogen 22 mg/dl Creatinine 0.82 mg/dl Est Creatinine Clear Calc Drug Dose 81.0 ml/min Estimated GFR () 95.4 Estimated GFR (Non- 82.4 BUN/Creatinine Ratio 26.6 Random Glucose 79 mg/dl Calcium Level 8.6 mg/dl Triglycerides Level 104 mg/dl Cholesterol Level 93 mg/dl HDL Cholesterol 37 mg/dl LDL Cholesterol, Calculated 35 mg/dl VLDL Cholesterol, Calculated 21 mg/dl Cholesterol/HDL Ratio 2.5 Bedside Glucose 103 mg/dl 106 mg/dl Assessment and Plan 82 y/o male with a history of CAD, [place] s/p LAD stent in 1999, HTN, HLD, DM II, h/ o BCC, chronic leukopenia, and GERD who presented to the ED on 07/04 with chest pain. Chest pain resolved in ED. Pt afebrile, VSS on arrival. Initial EKG shows new onset a-fib, repeat EKG shows a-flutter. CXR shows no acute disease. Cardiac enzymes negative. WBC 4.14, which is around his baseline. Chest pain, new onset a-flutter, resolved -Admit to telemetry -Trend cardiac enzymes q8h x 3 sets neg -Consult cardiology. Pt follows with Dr. Yao. Appreciate recs -Echocardiogram pending, will liekly require stress test -Anticoagulate with Lovenox 1 mg/kg SC q12h -Lipid panel in the am -Check magnesium and TSH -Pt having some trouble with cutting his atenolol tablets in half, states it isn 't always consistent -Switch atenolol to Lopressor 12.5 mg PO BID. Hold if SBP less than 100 or HR less than 60 CAD, h/o [place] s/p stent in 1999, HTN, HLD -Continue ASA 325 mg PO qd, Lopressor as above, atorvastatin 40 mg PO qpm DM II--last HgbA1c checked 03/25/17 was 6.6 -Continue Lantus 24 units SC qpm -Insulin sliding scale -Check BSGs q ac and qhs -Recheck HgbA1c H/o BCC, chronic leukopenia--was following with Dr. Smith, discharged from service in 2016 as has been stable for several years -WBC 4.14, around baseline -Continue to monitor CBC GERD -Continue Zantac 150 mg PO BID DVT prophylaxis -Lovenox as above -TIA abreu and SCDs Code Status -Level V, DO NOT RESUSCITATE
--- NOTE | 2017-07-05 13:10 | EXERCISE STRESS ECHO ---
*NOTICE TO RECEIVING [employer]OCRAT AGENCY This information is strictly Confidential and protected under [place] law. [place] law prohibits you from making any further disclosure of this information unless further disclosure is expressly permitted by the written consent of the person to whom it pertains or is authorized by law. A general authorization for the release of medical or other information is not sufficient for this purpose. Hospital accepts no responsibility if the information is made available to any other person, INCLUDING THE PATIENT. Interpretation Summary * Name: JANAE SOW Study Date: 07/05/2017 11:09 AM BP: 185/74 mmHg * Patient Location: C.2T\S\S240\S\1 HR: 53 * : 1935 (M/d/yyyy) Gender: Male Height: 70 in * Age: 82 yrs Ethnicity: CA Weight: 212 lb * Ordering Physician: Nader Yao * Referring Physician: Self, Referred * Performed By: Giovanna Alfaro RDCS * * Reason For Study: Chest pain * BSA: 2.1 m2 * Stress echocardiogram to 81% MPHR postive for evidence of ischemia in the LAD distribution. No chest pain. ECG nondiagnostic secondary to baseline IVCD. Procedure Details * ECHOEX, CPT #94391 Left Ventricle * The left ventricle is normal in size. * The left ventricular wall motion is normal at rest. * Following exercise there was hypokinesis in the anteroseptum, apex, and anterior erickson. Stress Parameters * Sinus Bradycardia, first degree AV block, left axis deviation,left anterior fasicular block,IIVCD. * Stress ECG: No ST changes. No arrhythmias. * The stress portion of this study was personally supervised by the undersigned interpreting physician. * Rest heart rate was '53' BPM. * Rest blood pressure was '185/74' * Maximum heart rate achieved was 113 bpm. * Maximum heart rate was 81 % of maximum age-predicted heart rate. * Maximum blood pressure was '206/68' * Total exercise time was '5:00' * Maximum exercise MET level achieved was '7.00' METS * Maximum treadmill speed was '2.50' miles per hour. * Maximum treadmill elevation was '12.00'% grade. * Exercise was terminated due to 'patient fatigue' * No complaint of chest pain during or following exercise. * The patient exhibited a hypertensive response with stress.
--- NOTE | 2017-07-05 13:47 | PROGRESS NOTE ---
DATE: 07/05/2017 The patient was seen by me this morning in his telemetry unit room. He was also seen by me in the noninvasive cardiac lab where he underwent a stress echocardiogram. Since admission, no complaints of chest pain. No other anginal type pains. No orthopnea or PND overnight. No dyspnea walking about the room or in the halls. No palpitations, lightheadedness, or syncope. No leg pain. No abdominal pain. No bleeding complaints. No cerebrovascular or peripheral vascular complaints. No symptoms suggestive of thromboembolic event. No fevers or chills. No pulmonary, GI, urinary complaints today. MEDICATIONS: This morning are aspirin 325 mg daily, vitamin D 1000 units daily, docusate sodium 100 mg daily, fish oil 1 g daily, lisinopril 5 mg daily, atorvastatin 40 mg daily, Lantus insulin 24 units subQ q.p.m., ranitidine 150 mg b.i.d., metoprolol tartrate 12.5 mg b.i.d., NovoLog sliding scale insulin, enoxaparin 100 mg subQ q. 12 hours, and several p.r.n. medications. ALLERGIES AND ADVERSE DRUG REACTIONS: SULFA ANTIBIOTICS. Monitor reveals sinus rhythm, sinus bradycardia, no further atrial fibrillation PHYSICAL EXAMINATION: VITAL SIGNS: This morning with oral temperature 36.6, pulse 55, blood pressure 181/84, pulse oximetry on room air 94%. NECK: No jugular venous distention. LUNGS: No respiratory distress. On initial exam, scant crackles at the bases. These resolve with deep breathing. HEART: Regular rate and rhythm. S1, S2 normal. No S3 or S4. 1/6 systolic murmur second intercostal space. No diastolic murmur or rub. ABDOMEN: Soft. Nontender. No palpable masses or organomegaly. No bruits. EXTREMITIES: No pretibial edema. No calf tenderness. NEUROLOGIC: Alert and oriented x3. Motor grossly intact. PSYCHIATRIC: Affect normal. DATA: Labs today with WBC 3.76, hemoglobin 13.1, hematocrit 37.4, platelet count 124. Metabolic profile with sodium 141, potassium 4.0, chloride 110, carbon dioxide 28, BUN 22, creatinine 0.82, random glucose 79. Lipid profile with triglycerides 104, total cholesterol 93, calculated LDL 35, HDL 37. Troponin I 0.015, 0.022, and 0.018. Electrocardiogram this morning with sinus bradycardia, first degree AV block, CA interval 266 milliseconds, left axis deviation, left anterior fascicular block, nonspecific IVCD. Resting echocardiogram performed this morning with normal left ventricular wall motion and systolic function. Mild LVH. Mild left atrial dilatation. Mild dilatation of the ascending aorta. Left ventricular diastolic dysfunction. Trace aortic and pulmonic regurgitation. Mild mitral and tricuspid regurgitation. Calculated aortic valve area 1.5 sq cm. Aortic valve sclerosis with mild stenosis. The patient thereafter underwent a stress echocardiogram. Exercised for 5 minutes with the standard Lc protocol. Maximum heart rate attained was 113 beats per minute. This was 81% of maximum predicted heart rate. Test terminated secondary to fatigue. He had no complaints of chest pain during or following exercise. His resting blood pressure was 185/74. With exercise, it arose to 206/68. Post-exercise echo images revealed hypokinesis in the anterior septum and anterior erickson. Consistent with ischemia in the LAD distribution. ASSESSMENT: 1. Coronary artery disease. History of left anterior descending stent in 1999. 2. Prolonged chest pain prompting this admission. Cardiac enzymes negative for myocardial injury. Electrocardiogram nondiagnostic because of IVCD. 3. Normal resting left ventricular systolic function. 4. Stress echo today positive for evidence of ischemia in the left anterior descending distribution. 5. Atrial fibrillation at the time of admission. Spontaneous conversion to sinus rhythm. 6. No current signs or symptoms of arrhythmia. No evidence of pulmonary vascular congestion on exam. Initial rales consistent with atelectasis. They cleared with deep breathing. 7. Type 2 diabetes mellitus. 8. Good control of LDL. He does have a low HDL. 9. Hypertensive at rest. Hypertensive blood pressure response to exercise. RECOMMENDATIONS AND PLAN: 1. Increase lisinopril to 10 mg daily. 2. It has been recommended to the patient that he undergo cardiac catheterization. Possible coronary intervention if indicated. The procedure, risk, benefits, and alternatives of cardiac catheterization and percutaneous coronary intervention were discussed with him. The nature of the [facility] PCI Program was discussed with him. He agrees to the procedure. It will be timely scheduled, to be performed on the morning of July 06. 3. NPO after 12:00 midnight tonight. 4. We will start intravenous fluids with normal saline this evening. 5. Discontinue enoxaparin after this afternoon dose. 6. Continue aspirin at this time. 7. Continue low dose metoprolol. Watch CA interval closely. 8. Further recommendations and plans will be based upon the results of the cardiac catheterization procedure. 9. Convert to inpatient status. MTDD
[2017-07-05 15:00] VITALS: BP 129/64; PULSE 53; TEMP 36.8; O2SAT 94
[2017-07-05 19:02] VITALS: BP 126/74; PULSE 50; TEMP 36.5; O2SAT 95
[2017-07-05] MEDS: SODIUM CHLORIDE 0.9% 1000ML 1,000 ML IV SCH (20:46)
[2017-07-05] MEDS: ATORVASTATIN 40 MG TAB PO SCH (20:46)
[2017-07-05] MEDS: INSULIN GLARGINE SOLOSTAR 100 UNITS/ML 3 ML PEN SC SCH (20:48)
[2017-07-06] VITALS (12 sets, daily range): BP systolic 128–174; BP diastolic 67–82; PULSE 48–75; TEMP 36.4–36.9; O2SAT 93–98
[2017-07-06] MEDS: SODIUM CHLORIDE 0.9% 1000ML 1,000 ML IV SCH ×2 (04:44→12:52)
[2017-07-06] MEDS: INSULIN ASPART 100 UNITS/ML 3 ML PEN SC SCH ×2 (07:00→13:21)
[2017-07-06] MEDS: DOCUSATE SODIUM 100 MG CAP PO SCH (08:04)
[2017-07-06] MEDS: ASPIRIN 325 MG ECTAB PO SCH (08:04)
[2017-07-06] MEDS: CHOLECALCIFEROL 1000 INTER.UNIT TAB PO SCH (08:04)
[2017-07-06] MEDS: OMEGA-3 (PURIFIED FISH OIL) 1 GM CAP PO SCH (08:04)
[2017-07-06] MEDS: RANITIDINE HCL 150 MG TAB PO SCH (08:04)
[2017-07-06] MEDS: METOPROLOL TARTRATE 25 MG TAB PO SCH (08:05)
--- NOTE | 2017-07-06 08:06 | Procedure Note ---
Pre-Mod Sedation Assessment General Date of Moderate Sedation: Jul 06, 2017. Vital Signs: Vital Signs Past 12 Hours Date Time Temp Pulse Resp B/P (MAP) Pulse Ox O2 Delivery O2 Flow Rate FiO2 07/06/17 07:31 36.7 49 20 152/67 (95) 94 Room Air 07/06/17 04:24 36.7 48 18 169/82 (111) 95 Room Air 07/06/17 04:00 Room Air 07/06/17 00:02 36.8 57 20 174/80 (111) 94 Room Air 07/06/17 00:00 Room Air Review Cardiovascular: regular rate, rhythm, no edema, no gallop, + systolic murmur Abdomen: non tender, soft Lungs: lungs clear Pre-Sedation Airway Assessment Oral Cavity: WNL Able to Visualize Vocal Cords: No Short Thick Neck: No Hx of Sleep Apnea: No Smoking Status: Former Smoker (smoked for only 4 years from [id number]) Mallampati Classification: Class III Procedure Planning Contraindications-for Mod Sed: None Yes Notes The planned sedation has been discussed with the patient and consent obtained. I have identified the patient, determined the appropriateness of sedation and have assessed the patient immediately prior to the procedure. All medicine(s) and interventions are by my order.
--- NOTE | 2017-07-06 08:24 | Hospitalist Progress Note ---
Hospitalist Progress Note Date of Service Jul 06, 2017. (Kimi Brady PA-C) Subjective Pt evaluation today including: physical exam, chart review, lab review, review of studies Pain: None PO Intake: Good Voiding: no voiding problems The patient was seen and examined this morning. Pt reports doing well. He denies any acute complaints, chest pain, or shortness of breath. He is anticipating cardiac cath this morning with Dr. Yao. Constitutional: No fever, No chills, No sweats Eyes: No redness, No diplopia ENT: No nasal symptoms, No trouble swallowing Respiratory: No cough, No shortness of breath, No dyspnea on exertion Cardiovascular: No chest pain, No palpitations Abdomen: No pain, No nausea, No vomiting, No diarrhea, No constipation Musculoskeletal: No joint pain, No muscle pain Neurologic: No memory loss, No weakness Psychiatric: No anxiety Skin: No rash, No itch (Kimi Brady PA-C) Objective Vital Signs Date Time Temp Pulse Resp B/P (MAP) Pulse Ox O2 Delivery O2 Flow Rate FiO2 07/06/17 08:04 36.5 51 16 168/74 (105) 93 Room Air 07/06/17 07:31 36.7 49 20 152/67 (95) 94 Room Air 07/06/17 04:24 36.7 48 18 169/82 (111) 95 Room Air 07/06/17 04:00 Room Air 07/06/17 00:02 36.8 57 20 174/80 (111) 94 Room Air 07/06/17 00:00 Room Air 07/05/17 20:00 Room Air 07/05/17 19:02 36.5 50 16 126/74 (91) 95 Room Air 07/05/17 16:00 Room Air 07/05/17 15:00 36.8 53 18 129/64 (85) 94 Room Air 07/05/17 12:00 Room Air 07/05/17 11:24 36.7 47 18 174/77 (109) 95 Room Air (Kimi Brady PA-C) Physical Exam General Appearance: WD/WN, no apparent distress Eyes: PERRL, EOMI ENT: hearing grossly normal, pharynx normal Neck: supple, no JVD Respiratory/Chest: chest non-tender, lungs clear, no respiratory distress, no accessory muscle use Cardiovascular: regular rate, rhythm, no murmur Abdomen: normal bowel sounds, non tender, soft Extremities: non-tender, no pedal edema, no calf tenderness Neurologic/Psychiatric: alert, normal mood/affect, oriented x 3 Skin: normal color, warm/dry (Kimi Brady, SUJEY) Laboratory Results Last 24 Hours Test 07/05/17 11:10 07/05/17 16:25 07/05/17 20:03 07/06/17 06:58 Bedside Glucose 106 mg/dl 202 mg/dl 86 mg/dl 118 mg/dl (Kimi Brady PA-C) Assessment and Plan 82 y/o male with a history of CAD, PA s/p LAD stent in 1999, HTN, HLD, DM II, h/ o BCC, chronic leukopenia, and GERD who presented to the ED on 07/04 with chest pain. Chest pain resolved in ED. Pt afebrile, VSS on arrival. Initial EKG shows new onset a-fib, repeat EKG shows a-flutter. CXR shows no acute disease. Cardiac enzymes negative. WBC 4.14, which is around his baseline. Chest pain, new onset a-flutter, resolved - Continue on tele - Trend cardiac enzymes q8h x 3 sets neg - Cardiology on board - planned cardiac cath today with Dr. Yao - Stress echocardiogram showing some wall motion abnormalities, obtained to 81% MPHR postive for evidence of ischemia in the LAD distribution. - Anticoagulate with Lovenox 1 mg/kg SC q12h - Lipid panel WNL - Pt having some trouble with cutting his atenolol tablets in half, states it isn't always consistent - Switch atenolol to Lopressor 12.5 mg PO BID. Hold if SBP less than 100 or HR less than 60 CAD, h/o PA s/p stent in 1999, HTN, HLD -Continue ASA 325 mg PO qd, Lopressor as above, atorvastatin 40 mg PO qpm DM II--last HgbA1c checked 03/25/17 was 6.6 -Continue Lantus 24 units SC qpm -Insulin sliding scale -Check BSGs q ac and qhs -Recheck HgbA1c H/o BCC, chronic leukopenia--was following with Dr. Smith, discharged from service in 2016 as has been stable for several years - WBC around baseline - Continue to monitor CBC GERD -Continue Zantac 150 mg PO BID DVT ppx: Lovenox, TIA kwoke and SCDs Code Status: DNR Disposition: From home, possible d/c within 24 hours. (Kimi Brady, PA-C) I agree with PA assessment and plan and have seen and examined pt myself Resting comfortably in bed VSS Labs reviewed To undergo cath this afternoon No chest pain at this time Will cont to monitor Appreciate card recs (Darrell Keller D.O.)
[2017-07-06] MEDS ORDERED: LISINOPRIL 10 MG TAB PO SCH (09:00)
[2017-07-06] MEDS ORDERED: NiCARDipine HCL INJ 2.5 MG/ML 10 ML AMP ONE ×2 (09:24→09:28)
[2017-07-06] MEDS ORDERED: MIDAZOLAM HCL 1 MG/ML 2ML VIAL ONE (09:25)
[2017-07-06] MEDS ORDERED: NITROGLYCERIN/D5W 100MCG/ML 20ML SYR ONE (09:25)
[2017-07-06] MEDS ORDERED: HEPARIN SOD (PORCINE) 1000 UNIT/ML 10 ML VIAL ONE (09:25)
[2017-07-06] MEDS ORDERED: FENTANYL CITRATE INJ 50 MCG/1 ML 2 ML VIAL ONE (09:26)
[2017-07-06] MEDS ORDERED: SODIUM CHLORIDE 0.9% 1000ML 250 ML IV PRN (11:07)
[2017-07-06] MEDS ORDERED: SODIUM CHLORIDE 0.9% 1000ML 1,000 ML IV SCH (11:07)
--- NOTE | 2017-07-06 11:07 | Procedure Note ---
Post-Mod Sedation Assessment General Date of Moderate Sedation Jul 06, 2017. Vital Signs: Vital Signs Past 12 Hours Date Time Temp Pulse Resp B/P (MAP) Pulse Ox O2 Delivery O2 Flow Rate FiO2 07/06/17 11:00 76 14 173/84 (113) 99 Room Air 07/06/17 10:45 71 16 160/87 (111) 99 Room Air 07/06/17 08:04 36.5 51 16 168/74 (105) 93 Room Air 07/06/17 07:31 36.7 49 20 152/67 (95) 94 Room Air 07/06/17 04:24 36.7 48 18 169/82 (111) 95 Room Air 07/06/17 04:00 Room Air 07/06/17 00:02 36.8 57 20 174/80 (111) 94 Room Air 07/06/17 00:00 Room Air Review - Discharge Criteria Vital Signs Stable: Yes Alert/Oriented/Conversant: Yes Returned to Baseline Mental St: Yes Nausea Absent/Minimal: Yes Pain/Discomfort/Absent/Minimal: Yes Normal/Baseline Respirations: Yes Active Bleeding?: No Pt Received D/C Instructions: N/A Prescriptions Given: None Specific Proced. D/C Criteria Distal Pulses Present (Cardiac: Yes Groin site assessed-Card Cath: N/A Voided Prior To Discharge: N/A Discharged Patients Adult Escort/Transportation: N/A
[2017-07-06] MEDS ORDERED: ATROPINE SULFATE 0.1 MG/ML 5ML SYR IV PRN (11:15)
[2017-07-06] MEDS ORDERED: ONDANSETRON INJ 2 MG/ML 2 ML VIAL IV PRN (11:15)
[2017-07-06] MEDS ORDERED: ACETAMINOPHEN 325 MG TAB PO PRN (11:15)
--- NOTE | 2017-07-06 12:02 | Cardiac Catheterization ---
Procedure Note Procedure Date Jul 06, 2017. Pre-Procedure Diagnosis Positive Stress Test, CAD AUC Score 8 Post-Procedure Diagnosis Moderate CAD, Elevated Intracardiac Pressures (LVEDP 15 mm Hg) Procedure(s) Performed Coronary Angiography, Left Heart Cath Welder Assembler Dr. Yao Rodent Control Worker(s) ALEK Joseph Estimated Blood Loss 15 ml Medication(s) Fentanyl, Heparin, Nicardipine (intra arterial), Versed, Lidocaine 1% Summary of Findings Clinical indications: History of 4 x 9 millimeter bare metal proximal LAD stent 1999. Admission with unstable anginal symptoms. Cardiac enzymes negative for myocardial injury. Electrocardiogram nondiagnostic secondary to IVCD. Resting echocardiogram with normal left ventricular wall motion and systolic function Stress echocardiogram with exercise-induced hypokinesis in the anterior septum, anterior, anterior apical segments. Hypertensive blood pressure response to exercise. Catheterization site: 6 [place] Slender [place] right radial artery. Catheters: 5 [place] Medtronic Track and JR4 diagnostic catheters. The JR4 catheter was used to perform left heart catheterization. The Track catheter would not selectively engage the right coronary artery. There was difficulty in traversing the standard J tipped guidewire from the right subclavian artery into the ascending aorta. The right innominate artery was tortuous. The tortuous segment was traversed with a Luge coronary guidewire. The diagnostic catheter was then easily advanced. Guidewire was then exchanged for the J-tip guidewire. Hemostasis: Terumo TR band. Complications: None. Findings: Right subclavian artery angiography revealed no obstructive disease in the subclavian artery. The right innominate artery was tortuous. A large caliber right internal mammary artery was visualized. No obstructive disease. The right vertebral and right common carotid arteries had no obstructive disease. Fluoroscopy revealed coronary calcifications and the presence of the proximal LAD stent. The left main coronary artery was a large caliber vessel with an eccentric 30 percent distal stenosis. The proximal LAD had a 20 percent stenosis prior to the stent. The mid segment of the stent had a 30 percent in stent restenosis. Following the stent the early mid LAD had a 30 percent stenosis. The very proximal LAD gave rise to very small caliber bifurcating 1st diagonal artery which had a 30 percent mid stenosis. The early mid LAD gave rise to a very small caliber 2nd diagonal artery which had a 30 percent ostial stenosis. The mid LAD gave rise to a long small caliber 3rd diagonal artery which had a 30 percent ostial stenosis. The distal LAD had diffuse mild atherosclerotic disease with 0-10 percent luminal diameter narrowing. The distal LAD terminated at the apex of the heart as a very small caliber vessel. Ostial left circumflex had a 60-70 percent eccentric stenosis. The proximal left circumflex had 10-30 percent stenoses. The circumflex then gave rise to a long medium caliber 1st marginal artery which had a 20-30 percent proximal stenosis. The early mid circumflex had 30 percent stenosis. Mid circumflex gave rise to medium caliber 2nd marginal artery which was normal. Distal circumflex gave rise to a very small caliber bifurcating 3rd marginal artery which was normal. Right coronary was a large caliber vessel. Proximal 0-10 percent stenosis. Mid segment with diffuse 10-20 percent stenoses. Distal segment with diffuse 0-10 percent luminal narrowing. The distal RCA gave rise to a long small caliber posterior descending artery. The PDA was normal. The distal RCA gave rise to a long small caliber posterolateral artery which had a proximal 20-30 percent stenosis. The RCA also gave rise to a prominent acute marginal artery. There was no significant gradient across the aortic valve. Discussion and plan: The stress test results are consistent with a false- positive finding. The hypokinesis may have been secondary to the hypertensive blood pressure response to exercise. .Will treat the patient with maximal medical therapy for CAD risk factor modification. He will remain on statin, beta-ramona, MARIA D inhibitor, and aspirin therapy. Hemodynamics Rest Ao: 164/62/104 mm Hg Final Ao: 174/69/113 mm Hg LV: 169/15 mm Hg Recommendations Medical therapy and/or Counseling Specimens None Radiation Exposure (mGy) 2447 Contrast (mls) 140 ml Visipaque Fluids (cc crystalloids) 85 Drains none Anesthesia intravenous Versed and fentanyl Procedural Complication(s) None Disposition PCU ACC Data Cardiac Status Clinical evaluation leading to the procedure CAD Presntation: Unstable angina, Positive Stress Test Anginal Classification: CCS IV Heart Failure: No Cardiogenic Shock w/in 24Hrs: No Cardiac Arrest w/in 24Hrs: No Imaging studies past 6 months: Yes Stress studies past 6 months: Yes Standard Exercise Stress Test: No Stress Echocardiogram: Yes - Positive, Risk/Extent of Ischemia (High) Stress Testing w/SPECT MPI: No Cardiac CTA: No Coronary Anatomy Dominant: Right Left Main (% Stenosis): Distal (30) LAD (% Stenosis): Proximal (20,30), Mid (30), Distal (0-10) D1 (% Stenosis): Mid (30) D2 (% Stenosis): Ostial (30) D3 (% Stenosis): Ostial (30) Circumflex (% Stenosis): Ostial (60-70), Proximal (10-30), Mid (30) OM1 (% Stenosis): Proximal (20-30) OM2 (% Stenosis): Normal OM3 (% Stenosis): Normal RCA (% Stenosis): Proximal (0-10), Mid (10-20), Distal (0-10) R PDA (% Stenosis): Normal R PL1 (% Stenosis): Proximal (20-30) Left Ventricular Angiography EF (%): NA Diagnostic Physician's Name: Nader Yao M.D. Status: Elective Closure Device Percutaneous Entry Location: Radial Closure Device: Radial Band Recommendations: Medical therapy and/or Counseling
--- NOTE | 2017-07-06 15:03 | Discharge Instructions ---
Discharge Instructions Date of Service Jul 06, 2017. Admission Reason for Admission: New Onset Atrial Flutter, Retrosternal Chest Pain Discharge Discharge Diagnosis / Problem: Retrosternal Chest pain and new onset of atrial flutter Discharge Goals Goal(s): Decrease discomfort, Improve function, Increase independence, Improve disease control Activity Recommendations Activity Limitations: resume your previous activity Lifting Limitations: no more than 25 pounds, gradually increase as tolerated Exercise/Sports Limitations: rest today, gradually increase as tolerated May Resume Sexual Activity: when tolerated Shower/Bathe: no limitations Driving or Machine Use: resume 1 day after discharge . Instructions / Follow-Up Instructions / Follow-Up You were admitted to [facility] with retrosternal chest pain and diagnosed with the same. During your stay here you were treated with supportive care. You underwent a cardiac catheterization on 07/06/17 which was normal and did not require any intervention. Continue taking medications as prescribed including statin, beta-ramona, MARIA D inhibitor, and aspirin therapy Imaging studies which were completed include echocardiogram on 07/05 and were normal. Follow up: Follow up with your Primary Care Provider within 1 week. Current Hospital Diet Patient's current hospital diet: AHA Diet (Heart Healthy), Diabetes Type 2 Diet Discharge Diet Recommended Diet: AHA Diet (Heart Healthy), Diabetes Type 2 Diet Procedures Procedures Performed: 07/06: Cardiac Cath Pending Studies Studies pending at discharge: no Laboratory Results Hemoglobin A1c Test 07/04/17 08:40 Range/Units Estimated Average Glucose 140 mg/dl Hemoglobin A1c 6.5 H 4.5-5.6 % Lipid Panel Test 07/05/17 06:03 Range/Units Triglycerides Level 104 0-150 mg/dl Cholesterol Level 93 0-200 mg/dl HDL Cholesterol 37 mg/dl Cholesterol/HDL Ratio 2.5 LDL Cholesterol, Calculated 35 mg/dl Medical Emergencies . Who to Call and When: Medical Emergencies: If at any time you feel your situation is an emergency, please call 911 immediately. . Non-Emergent Contact Non-Emergency issues call your: Primary Care Provider, Swimming Pool Plasterer Helper Call Non-Emergent contact if: you have a fever, your pain is not controlled, your pain is worsening, your pain is unusual for you, your pain is concerning you, you have any medication questions . Past History Medical & Surgical History: (1) Retrosternal chest pain (2) New onset atrial flutter . "Provider Documentation" section prepared by Maru Brady. . VTE Core Measure Inpt VTE Proph given/why not?: Unfractionated heparin SHARON, T.E.Nata. Bryan, SCD 's
[2017-07-06] MEDS ORDERED: LISI10TA PO (15:05)
--- NOTE | 2017-07-06 15:28 | Discharge Summary ---
Discharge Summary Date of Service Jul 06, 2017. (Kimi Brady PA-C) Discharge Summary Admission Date: Jul 05, 2017 at 15:28 Discharge Date: Jul 06, 2017 Discharge Disposition: Home Principal Diagnosis: Chest pain, new onset atrial flutter Problems/Secondary Diagnoses: CAD, ME s/p LAD stent in 1999, HTN, HLD, DM II, h/o BCC, chronic leukopenia, and GERD, new onset atrial flutter now resolved Immunizations: Have You Had Influenza Vaccine: No History of Tetanus Vaccine?: UTD History of Pneumococcal: Yes History of Hepatitis B Vaccine: Unknown Procedures: CHEST ONE VIEW PORTABLE CLINICAL HISTORY: Fever. Chest pain. Sepsis. COMPARISON STUDY: Chest radiograph July 08, 2012. FINDINGS: The patient is rotated. No pneumothorax or pleural effusion is present. Mild cardiomegaly is noted without evidence of pulmonary edema. No consolidation is identified. IMPRESSION: 1. No acute cardiopulmonary findings. 2. Mild cardiomegaly. Electronically signed by: Óscar Stubbs M.D. 07/04/2017 9:51 AM Dictated Date/Time: 07/04/2017 9:50 AM The status of this report is Signed. Consultations: Cardiology (Kimi Brady PA-C) Medication Reconciliation Changed Medications: Lisinopril (Prinivil) 10 Mg Tab 1 TAB PO DAILY for 30 Days, #30 TAB 1 Refill (Changed from: Lisinopril (Zestril ) 5 Mg Tab 5 Mg PO DAILY) Continued Medications: Ascorbic Acid (Vitamin C) 500 Mg Cap 500 MG PO DAILY Aspirin (Aspirin) 325 Mg Tab 325 MG PO DAILY Atenolol (Tenormin) 25 Mg Tab 25 MG PO DAILY, TAB Atorvastatin (Lipitor) 40 Mg Tab 40 MG PO QPM, TAB B-Complex Vitamins (Vitamin B Complex) 1 Tab Tab 1 TAB PO DAILY Cholecalciferol (Vitamin D3) 1,000 Unit Tab 1000 UNITS PO DAILY for 90 Days, TAB 3 Refills Docusate Sodium (Stool Softener) 100 Mg Cap 100 MG PO DAILY Fish Oil ([place]-3) 1 Ea Cap 1 CAP PO DAILY, CAP Insulin Glargine (Lantus Solostar) 100 Unit/Ml Inj 24 UNITS SC QPM, PEN Insulin Lispro (Human) (Humalog Kwikpen) 100 Unit/Ml Inj 1 DOSE SQ ACHS PRN for PER SLIDING SCALE Nitroglycerin (Nitrostat) 0.4 Mg Tab 0.4 MG UT PRN PRN for CHEST PAIN, BTL Ranitidine Hcl (Zantac) 150 Mg Tab 150 MG PO BID, TAB Discharge Exam Subjective Pt evaluation today including: physical exam, chart review, lab review, review of studies Pain: None PO Intake: Good Voiding: no voiding problems The patient was seen and examined this morning. Pt reports doing well. He denies any acute complaints, chest pain, or shortness of breath. He is anticipating cardiac cath this morning with Dr. Yao. Constitutional: No fever, No chills, No sweats Eyes: No redness, No diplopia ENT: No nasal symptoms, No trouble swallowing Respiratory: No cough, No shortness of breath, No dyspnea on exertion Cardiovascular: No chest pain, No palpitations Abdomen: No pain, No nausea, No vomiting, No diarrhea, No constipation Musculoskeletal: No joint pain, No muscle pain Neurologic: No memory loss, No weakness Psychiatric: No anxiety Skin: No rash, No itch Objective Vital Signs Date Time Temp Pulse Resp B/P (MAP) Pulse Ox O2 Delivery O2 Flow Rate FiO2 07/06/17 08:04 36.5 51 16 168/74 (105) 93 Room Air 07/06/17 07:31 36.7 49 20 152/67 (95) 94 Room Air 07/06/17 04:24 36.7 48 18 169/82 (111) 95 Room Air 07/06/17 04:00 Room Air 07/06/17 00:02 36.8 57 20 174/80 (111) 94 Room Air 07/06/17 00:00 Room Air 07/05/17 20:00 Room Air 07/05/17 19:02 36.5 50 16 126/74 (91) 95 Room Air 07/05/17 16:00 Room Air 07/05/17 15:00 36.8 53 18 129/64 (85) 94 Room Air 07/05/17 12:00 Room Air 07/05/17 11:24 36.7 47 18 174/77 (109) 95 Room Air Physical Exam General Appearance: WD/WN, no apparent distress Eyes: PERRL, EOMI ENT: hearing grossly normal, pharynx normal Neck: supple, no JVD Respiratory/Chest: chest non-tender, lungs clear, no respiratory distress, no accessory muscle use Cardiovascular: regular rate, rhythm, no murmur Abdomen: normal bowel sounds, non tender, soft Extremities: non-tender, no pedal edema, no calf tenderness Neurologic/Psychiatric: alert, normal mood/affect, oriented x 3 Skin: normal color, warm/dry (Kimi Brady PA-C) Hospital Course H&P per Rebekah Leonard PA-C History of Present Illness Source: patient, family (son at bedside), clinic records, hospital records This is an 82 y/o male with a history of CAD, ME s/p LAD stent in 1999, HTN, HLD , DM II, h/o BCC, chronic leukopenia, and GERD who presented to the ED on 07/04 with chest pain. The patient states that he developed chest pain around 0800 this morning while sitting down. He described the pain as a 3 or 4 out of 10 tightness in the middle of his chest that did not radiate. The pain lasted for about 45 minutes and has now resolved. He also complained of associated diaphoresis but denied associated shortness of breath, nausea/vomiting, numbness or tingling. The patient reports intermittent productive cough and wheezing, which he associates more with his GERD. The patient did have a previous ME and stated that his symptoms today felt similar enough to the ME that he was concerned, prompting him to come to the ED. His previous ME resulted in a cardiac cath revealing 90% stenosis of the LAD where 1 stent was placed. The patient has since followed with Dr. Yao and has not had any other cardiac issues since. He denies any recent stress tests or catheterizations. The patient denies fevers, chills, palpitations, claudication, shortness of breath, nausea, vomiting, abdominal pain, dysuria, hematuria, urinary retention , paralysis, weakness, numbness and tingling. Physical Exam Vital Signs Date Time Temp Pulse Resp B/P (MAP) Pulse Ox O2 Delivery O2 Flow Rate FiO2 07/04/17 10:05 52 16 137/68 94 Room Air 07/04/17 09:36 56 152/72 93 Room Air 07/04/17 09:36 93 Room Air 07/04/17 09:04 62 07/04/17 08:32 96 Room Air 07/04/17 08:28 36.7 74 20 183/76 93 Room Air General appearance: +Obese. Well-developed, well-nourished, no apparent distress Head: Normocephalic, atraumatic Eyes: Normal inspection, PERRL, EOMI ENT: Normal ENT inspection, hearing grossly normal, pharynx normal Neck: Supple, no JVD, trachea midline Respiratory/Chest: +Crackles in bases bilaterally. Normal breath sounds, no respiratory distress Cardiovascular: +Irregularly irregular, bradycardic. Systolic murmur. No gallop Abdomen/GI: Normal bowel sounds, non-tender, soft Extremities/Musculoskeletal: +Trace pitting edema. Normal inspection, no calf tenderness Neurological/Psych: Alert, normal mood/affect, oriented x 3 Skin: Normal color, warm/dry, no rash Hospital Course: 82 y/o male with a history of CAD, ME s/p LAD stent in 1999, HTN, HLD, DM II, h/ o BCC, chronic leukopenia, and GERD who presented to the ED on 07/04 with chest pain. Chest pain resolved in ED. Pt afebrile, VSS on arrival. Initial EKG shows new onset a-fib, repeat EKG shows a-flutter. CXR shows no acute disease. Cardiac enzymes negative. WBC 4.14, which is around his baseline. Chest pain, new onset a-flutter, resolved - No acute episodes on tele - Trend cardiac enzymes q8h x 3 sets neg - Stress echocardiogram showing some wall motion abnormalities, obtained to 81% MPHR positive for evidence of ischemia in the LAD distribution. - Cardiology on board - planned cardiac cath on 07/06 indicated false positive and no occlusion of stents. No further intervention was necessary. - Anticoagulate with Lovenox 1 mg/kg SC q12h - Lipid panel WNL - Pt having some trouble with cutting his atenolol tablets in half, states it isn't always consistent - Switch atenolol to Lopressor 12.5 mg PO BID. Hold if SBP less than 100 or HR less than 60 CAD, h/o ME s/p stent in 1999, HTN, HLD - Continue ASA 325 mg PO qd, Lopressor as above, atorvastatin 40 mg PO qpm DM II--last HgbA1c checked 03/25/17 was 6.6 - Continue Lantus 24 units SC qpm - Insulin sliding scale with accuchecks remained stable - Recheck HgbA1c = 6.5 on 07/04 H/o BCC, chronic leukopenia--was following with Dr. Smith, discharged from service in 2016 as has been stable for several years - WBC around baseline - Continue to monitor CBC GERD -Continue Zantac 150 mg PO BID DVT ppx: Lovenox, TIA hose and SCDs Code Status: DNR Disposition: From home, d.c to home today Total Time Spent: Greater than 30 minutes This includes examination of the patient, discharge planning, medication reconciliation, and communication with other providers. (Kimi Brady, SUJEY) I agree with PA assessment and plan and have seen and examined pt myself Resting comfortably in bed VSS Labs reviewed To undergo cath this afternoon No chest pain at this time No worsening CAD Stable for discharge home Appreciate card recs (Darrell Keller D.O.) Discharge Instructions Please refer to the electronic Patient Visit Report (Discharge Instructions) for additional information. (Kimi Brady, SUJEY) Follow-Up Follow up with your Primary Care Provider within 1 week. (Kimi Brady PA-C) Additional Copies To Kd Bryant M.D.
== END 2017-07-06 15:57 | disposition home or self-care (01) | DRG 287 ==
LOC: C.EDB 08:17 → C.2T 11:52 → ENRESERV 12:02 → OBSVTOIN 07-05 15:28
PROVIDERS: ADMIT Internal Medicine; ATTEND Hospitalist
PROC: 4A023N7 Measurement of Cardiac Sampling and Pressure, Left Heart, Percutaneous Approach (ICD-10-PCS; principal; 2017-07-06 09:30)
PROC: B2101ZZ Fluoroscopy of Single Coronary Artery using Low Osmolar Contrast (ICD-10-PCS; principal; 2017-07-06 09:30)
DX: I48.92 Unspecified atrial flutter (principal); I25.110 Atherosclerotic heart disease of native coronary artery with unstable angina pectoris; I20.0 Unstable angina; Z66 Do not resuscitate; I25.2 Old myocardial infarction; I25.10 Atherosclerotic heart disease of native coronary artery without angina pectoris; E11.9 Type 2 diabetes mellitus without complications; E78.5 Hyperlipidemia, unspecified; Z87.891 Personal history of nicotine dependence; Z79.82 Long term (current) use of aspirin; Z79.4 Long term (current) use of insulin; K21.9 Gastro-esophageal reflux disease without esophagitis; D72.819 Decreased white blood cell count, unspecified; Z83.3 Family history of diabetes mellitus; Z82.49 Family history of ischemic heart disease and other diseases of the circulatory system; Z80.1 Family history of malignant neoplasm of trachea, bronchus and lung

== ENCOUNTER → 2017-08-20 | Outpatient (CLI) | payer BC, OTHER ==
[~2017-08-20] MED LIST changes: +ASCO1CAP3 PO; -ASCO500T16 PO; -ASPI-113 PO; +ASPI325T45 PO; +ATEN-173 PO; -ATEN25TA PO; +ATOR-24 PO; -B-COCAP2 PO; +B-COTAB18 PO; -CETI10TA84 PO; +CHOL1000 PO; -CHOL100027 PO; -CRANPOW PO; +DOCU100C PO; -HMLI SC; +INSDGIPEN SC; +INSU100I2 SQ; -INSU1INJ7 SC; +LISI10TA PO; -LPT/40 PO; -LUCENTIS IO; -NITR0.4S UT; +NTRGSL/4 UT; +RANI150T3 PO; -RANI300T2 PO; -TRIA1SPR4; -fluticasone PO
== END | disposition home or self-care (01) ==
LOC: C.LAB1850 07:43
PROVIDERS: ATTEND Nurse Practitioner Family
DX: Z51.81 Encounter for therapeutic drug level monitoring (principal); E11.9 Type 2 diabetes mellitus without complications; Z79.4 Long term (current) use of insulin

== ENCOUNTER 2018-06-19 09:33 | Emergency (ER) | payer BC, OTHER ==
[~2018-06-19] VITALS: Ht 175.3 cm; Wt 96.3 kg
[~2018-06-19 09:33] MED LIST changes: +ASPECOTC PO; -ASPI325T45 PO
[2018-06-19 09:39] VITALS: TEMP 36.6; Ht 175.3 cm; Wt 96.3 kg
[2018-06-19] MEDS ORDERED: DIPHTHERIA/TETANUS/PERTUSSIS 0.5 ML SYR/VIAL IM. ONE (10:00)
--- NOTE | 2018-06-19 10:27 | DIAGNOSTIC IMAGING REPORT ---
CT SCAN OF THE BRAIN WITHOUT IV CONTRAST CLINICAL HISTORY: Fall. Head injury. COMPARISON STUDY: No priors. TECHNIQUE: Unenhanced axial CT scan of the brain is performed from the vertex to the skull base. A dose lowering technique was utilized adhering to the principles of ALARA. FINDINGS: Brain parenchyma: There are age-related involutional changes noting mild subcortical and periventricular microangiopathic change. There is no hemorrhage, mass effect, or evidence of acute territorial ischemia by CT criteria. Nixon-white matter is preserved. No extra-axial fluid collection is seen. Ventricles, sulci, cisterns: Prominent secondary to involutional change. Intracranial vasculature: There is atherosclerotic calcification of the cavernous carotid and vertebral arteries. Calvarium: The skeletal structures are osteopenic. There is no depressed calvarial fracture. Sinuses and mastoids: Trace mucosal thickening is seen in the right maxillary antrum. The remaining visualized paranasal sinuses are clear. There is a trace left mastoid effusion. The right mastoid air cells are well pneumatized. Orbits: The bony orbits are grossly intact. There are bilateral ocular lens implants. IMPRESSION: There is no hemorrhage, mass effect, or evidence of acute territorial ischemia by CT criteria. Electronically signed by: Александр Rowe M.D. 06/19/2018 10:25 AM Dictated Date/Time: 06/19/2018 10:22 AM
--- NOTE | 2018-06-19 10:39 | DIAGNOSTIC IMAGING REPORT ---
CT SCAN OF THE FACIAL BONES WITHOUT IV CONTRAST CLINICAL HISTORY: Fall. Facial injury. COMPARISON STUDY: CT of the brain performed concurrently on 06/19/2018. TECHNIQUE: High-resolution CT scan of the facial bones is performed. Images are reviewed in the axial, sagittal, and coronal planes. IV contrast was not administered for this examination. A dose lowering technique was utilized adhering to the principles of ALARA. CT DOSE: 840.27 mGy.cm FINDINGS: The skeletal structures are osteopenic. There is no evidence of facial bone fracture. The bony orbits are intact and the orbital contents are within normal limits noting bilateral ocular lens implants. The zygomatic arches, nasal bones, and pterygoid plates are preserved. The maxilla and mandible are intact. There are no layering blood products within the paranasal sinuses. Trace mucosal thickening is seen in the right maxillary antrum and the frontal sinuses. The remaining paranasal sinuses are clear. There is a trace left mastoid effusion. The right mastoid air cells are clear. The visualized calvarium appears intact. The imaged upper cervical spine appears maintained noting spondylotic change. Partially imaged brain parenchyma is within normal limits noting age-related involutional change. There are numerous dental caries. There is mild right periorbital scalp contusion. IMPRESSION: 1. There is no evidence of facial bone fracture. 2. Numerous dental caries are identified. Follow-up with dentistry is recommended. Electronically signed by: Александр Rowe M.D. 06/19/2018 10:38 AM Dictated Date/Time: 06/19/2018 10:31 AM
--- NOTE | 2018-06-19 11:00 | DIAGNOSTIC IMAGING REPORT ---
LEFT SHOULDER 3 VIEWS CLINICAL HISTORY: Left shoulder pain. Fall. FINDINGS: 3 views of the left shoulder are obtained. No prior studies are available for comparison at the time of dictation. The skeletal structures are osteopenic. No fracture or dislocation is seen. Productive degenerative change is noted at the acromioclavicular joint. Mild arthritic change is seen in the greater tuberosity of the humeral head. The overlying soft tissues are normal in appearance. The partially imaged left lung parenchyma appears clear. IMPRESSION: Osteopenia and degenerative change as above. No left shoulder fracture or dislocation is seen. Electronically signed by: Александр Rowe M.D. 06/19/2018 10:59 AM Dictated Date/Time: 06/19/2018 10:56 AM
[2018-06-19] MEDS ORDERED: INSDGI SQ (11:07)
[2018-06-19] MEDS ORDERED: APIX1TAB PO (11:07)
[2018-06-19] MEDS ORDERED: OMEG5CAP PO (11:07)
[2018-06-19] MEDS ORDERED: LPR25 PO (11:07)
[2018-06-19] MEDS ORDERED: ASCO1CAP3 PO (11:07)
[2018-06-19] MEDS ORDERED: LISI-461 PO (11:07)
[2018-06-19] MEDS ORDERED: ATOR-24 PO (11:07)
[2018-06-19] MEDS ORDERED: INSU100I SQ (11:07)
[2018-06-19] MEDS ORDERED: ASPI-461 PO (11:07)
[2018-06-19] MEDS ORDERED: B-COTAB18 PO (11:07)
[2018-06-19] MEDS ORDERED: CHOL100010 PO (11:07)
--- NOTE | 2018-06-19 11:29 | EMERGENCY ROOM VISIT NOTE ---
ED Visit Note First contact with patient: 09:41 I have personally seen and evaluated the patient with the physician assistant terminal manager. I agree with the diagnostic/management decisions and have personally been involved in these decisions and agree with the diagnosis.
[2018-06-19 11:45] VITALS: BP 151/75; PULSE 55; O2SAT 95
--- NOTE | 2018-06-19 17:03 | EMERGENCY ROOM VISIT NOTE ---
History First contact with patient: 09:41 Chief Complaint: FALL Stated Complaint: SHOULDER INJURY FROM FALL History of Present Illness The patient is a 83 year old male who presents to the Emergency Room with complaints of a head injury and left shoulder pain after falling during his regular daily walking exercise routine. The patient reports that he tripped on a sidewalk and fell forward. He tried to catch himself with outstretched arms. He reports that his head did hit the ground, and reports an abrasion to the right cheek an area adjacent to the right eye. He denies any headache, loss of consciousness, blurred vision, epistaxis, nausea, neck pain or back pain. The patient reports generalized left shoulder discomfort. He denies any pain radiating into the back. He denies any prior history of shoulder injuries. The patient is right-hand dominant, and rates his discomfort a 6 out of 10. The patient is on Eliquis. Review of Systems 10 system review was performed and was negative except for pertinent positives and negatives as indicated in history of present illness Past Medical/Surgical History Medical Problems: (1) CALCULUS OF KIDNEY (2) CALCULUS OF URETER (3) CORONARY ATHEROSCLEROSIS OF [place] CORONARY VESSEL (4) DIAB LIZ WO COMPL, TYPE II OR UNSPEC TYPE, NOT UNCNTRLD (5) HYPERLIPIDEMIA NEC/NOS (6) Myocardial infarction (7) Pancytopenia (8) SEPSIS (9) SEPTICEMIA NOS Family History Diabetes mellitus Hypertension Lung cancer Myocardial infarction Pancreatic cancer Stroke Social History Smoking Status: Never Smoker Alcohol Use: none Drug Use: none Marital Status: Occupation Status: retired Current/Historical Medications Scheduled Apixaban (Eliquis), 2.5 MG PO BID Ascorbic Acid (Vitamin C), 500 MG PO DAILY Aspirin (Aspirin), 81 MG PO DAILY Atorvastatin (Lipitor), 40 MG PO DAILY B-Complex Vitamins (Vitamin B Complex), 1 TAB PO DAILY Cholecalciferol (Vitamin D), 500-1,000 MG PO DAILY Insulin Glargine (Lantus), 22 UNITS SQ DAILY Insulin Lispro (Human) (Humalog), 10-20 UNITS SQ TIDM Lisinopril (Zestril), 10 MG PO DAILY Metoprolol Tartrate (Lopressor), 25 MG PO DAILY [place]-3 Fatty Acids (Fish Oil 1200 mg), 1,200 MG PO DAILY Scheduled PRN Nitroglycerin (Nitrostat), 0.4 MG UT PRN PRN for CHEST PAIN Physical Exam Vital Signs Date Time Temp Pulse Resp B/P (MAP) Pulse Ox O2 Delivery O2 Flow Rate FiO2 06/19/18 11:45 55 18 151/75 95 06/19/18 10:59 57 18 138/81 94 Room Air 06/19/18 09:39 36.6 76 18 160/80 95 Room Air Physical Exam CONSTITUTIONAL: Healthy and well nourished. Alert and oriented X 3 with positive affect. Patient does not appear in any acute distress. HEENT: Examination shows abrasions to the right facial region. He has mild edema of the superior orbital region. He has an abrasion over the zygomatic arch and cheek. No subconjunctival hemorrhage, epistaxis, hemotympanum, raccoon 's eyes or cardoza sign. Pupils equal, round and reactive. OROPHARYNX: No dental trauma or other intraoral lacerations. NECK: Full active range of motion without discomfort. RESPIRATORY: Clear to auscultation bilaterally with no wheezing, crackles, rhonchi or stridor. CARDIOVASCULAR: Regular rate and rhythm with no murmurs, rubs or gallops. MUSCULOSKELETAL: Examination shows mild generalized discomfort to palpation of the left shoulder, as well as pain with range of motion. No crepitance noted. No focal tenderness over the biceps or triceps. Bilateral elbows, wrists and hands were normal. Patient has no tenderness to palpation through the thoracolumbar spine or lower extremities. Distal pulses are intact. INTEGUMENTARY: No rash or other significant dermatologic conditions noted. NEUROLOGIC: No focal neurologic deficits noted. Facial sensations are intact. Upper and lower extremities are sensory intact. Medical Decision & Procedures ER Provider Diagnostic Interpretation: My interpretation of left shoulder x-rays does not show any acute fractures or dislocation. Radiologist report is as follows: LEFT SHOULDER 3 VIEWS CLINICAL HISTORY: Left shoulder pain. Fall. FINDINGS: 3 views of the left shoulder are obtained. No prior studies are available for comparison at the time of dictation. The skeletal structures are osteopenic. No fracture or dislocation is seen. Productive degenerative change is noted at the acromioclavicular joint. Mild arthritic change is seen in the greater tuberosity of the humeral head. The overlying soft tissues are normal in appearance. The partially imaged left lung parenchyma appears clear. IMPRESSION: Osteopenia and degenerative change as above. No left shoulder fracture or dislocation is seen. Noncontrast CT of the head is negative for fracture or intracranial bleed. Radiologist report is as follows: CT SCAN OF THE BRAIN WITHOUT IV CONTRAST CLINICAL HISTORY: Fall. Head injury. COMPARISON STUDY: No priors. TECHNIQUE: Unenhanced axial CT scan of the brain is performed from the vertex to the skull base. A dose lowering technique was utilized adhering to the principles of ALARA. FINDINGS: Brain parenchyma: There are age-related involutional changes noting mild subcortical and periventricular microangiopathic change. There is no hemorrhage, mass effect, or evidence of acute territorial ischemia by CT criteria. [place]-white matter is preserved. No extra-axial fluid collection is seen. Ventricles, sulci, cisterns: Prominent secondary to involutional change. Intracranial vasculature: There is atherosclerotic calcification of the cavernous carotid and vertebral arteries. Calvarium: The skeletal structures are osteopenic. There is no depressed calvarial fracture. Sinuses and mastoids: Trace mucosal thickening is seen in the right maxillary antrum. The remaining visualized paranasal sinuses are clear. There is a trace left mastoid effusion. The right mastoid air cells are well pneumatized. Orbits: The bony orbits are grossly intact. There are bilateral ocular lens implants. IMPRESSION: There is no hemorrhage, mass effect, or evidence of acute territorial ischemia by CT criteria. Noncontrast CT of the cervical spine is also negative for fracture or subluxation. Radiologist report is as follows: CT SCAN OF THE FACIAL BONES WITHOUT IV CONTRAST CLINICAL HISTORY: Fall. Facial injury. COMPARISON STUDY: CT of the brain performed concurrently on 06/19/2018. TECHNIQUE: High-resolution CT scan of the facial bones is performed. Images are reviewed in the axial, sagittal, and coronal planes. IV contrast was not administered for this examination. A dose lowering technique was utilized adhering to the principles of ALARA. CT DOSE: 840.27 mGy.cm FINDINGS: The skeletal structures are osteopenic. There is no evidence of facial bone fracture. The bony orbits are intact and the orbital contents are within normal limits noting bilateral ocular lens implants. The zygomatic arches, nasal bones, and pterygoid plates are preserved. The maxilla and mandible are intact. There are no layering blood products within the paranasal sinuses. Trace mucosal thickening is seen in the right maxillary antrum and the frontal sinuses. The remaining paranasal sinuses are clear. There is a trace left mastoid effusion. The right mastoid air cells are clear. The visualized calvarium appears intact. The imaged upper cervical spine appears maintained noting spondylotic change. Partially imaged brain parenchyma is within normal limits noting age-related involutional change. There are numerous dental caries. There is mild right periorbital scalp contusion. IMPRESSION: 1. There is no evidence of facial bone fracture. 2. Numerous dental caries are identified. Follow-up with dentistry is recommended. Medications Administered Medications (Trade) Dose Ordered Sig/Jim Route Start Time Stop Time Status Last Admin Dose Admin Diphtheria/ Pertussis/Tetanus Vacc (Adacel Inj) 0.5 ml ONCE ONCE IM. 06/19/18 10:00 06/19/18 10:01 DC 06/19/18 10:06 0.5 ML ED Course Patient history and physical exam were performed. Nurse's notes were reviewed. Vital signs were reviewed and were normal. The patient refused any analgesics. The patient does report that his tetanus immunization is not up-to- date. He was administered Adacel IM. X-rays of the left shoulder were normal. Noncontrast CT of the head and facial bones were also normal. The patient was encouraged to keep the wounds clean and covered with an antibiotic ointment until the heel. Ice as needed for swelling. Tylenol as needed for pain. The patient was encouraged to follow-up with his PCP as needed with any persistent left shoulder pain. He was instructed to return to the emergency department for any significantly worsening symptoms from his fall. The patient was happy with plan of care, voiced understanding of all discharge instructions, and rated his discomfort a 4 out of 10 at the time of discharge The patient was also seen and examined by Dr. Cotto, ED attending physician, who agrees with workup and plan of care. Medical Decision [place] Drug Monitoring Program Search Results: patient reviewed within database, no issues identified Medication Reconcilliation Current Medication List: was personally reviewed by me Blood Pressure Screening Patient's blood pressure: Normal blood pressure Impression Primary Impression: CHI (closed head injury) Additional Impressions: Facial abrasion Left shoulder strain Fall from slip, trip, or stumble Departure Information Dispostion Home / Self-Care Condition GOOD Forms HOME CARE DOCUMENTATION FORM, IMPORTANT VISIT INFORMATION Patient Instructions My FAD ? IO Additional Instructions Intermittently apply ice to areas of discomfort. Keep facial wounds clean and covered with an antibiotic ointment until they heal , watching for any signs of infection. Tylenol 1000 mg every 6-8 hours as needed for pain. Perform gentle range of motion exercises of the left shoulder to prevent stiffness. Avoid heavy pushing, pulling or other heavy labor with the shoulder until symptoms improve. Follow-up with orthopedics if left shoulder pain is not improving within the next week. Problem Qualifiers Primary Impression: CHI (closed head injury) Encounter type: initial encounter Qualified Codes: S09.90XA - Unspecified injury of head, initial encounter Additional Impressions: Facial abrasion Encounter type: initial encounter Qualified Codes: S00.81XA - Abrasion of other part of head, initial encounter Left shoulder strain Encounter type: initial encounter Qualified Codes: S46.912A - Strain of unspecified muscle, fascia and tendon at shoulder and upper arm level, left arm , initial encounter Fall from slip, trip, or stumble Encounter type: initial encounter Qualified Codes: W01.0XXA - Fall on same level from slipping, tripping and stumbling without subsequent striking against object, initial encounter
== END 2018-06-19 11:46 | disposition home or self-care (01) ==
LOC: C.EDB 09:35 → C.EDC 11:46
DX: S00.81XA Abrasion of other part of head, initial encounter (principal); S46.912A Strain of unspecified muscle, fascia and tendon at shoulder and upper arm level, left arm, initial encounter; Z23 Encounter for immunization; W18.09XA Striking against other object with subsequent fall, initial encounter; Y93.01 Activity, walking, marching and hiking; Y92.480 Sidewalk as the place of occurrence of the external cause; Y99.8 Other external cause status; E78.5 Hyperlipidemia, unspecified; E11.9 Type 2 diabetes mellitus without complications; Z79.4 Long term (current) use of insulin; Z79.01 Long term (current) use of anticoagulants; Z79.82 Long term (current) use of aspirin

== ENCOUNTER 2019-11-03 11:14 | Inpatient (IN) ==
[2019-11-03] MEDS ORDERED: SODIUM CHLORIDE 0.9% 500 ML IV SCH (12:15)
[2019-11-03 12:30] LABS: Hematocrit (blood only) 38.9 % (42-52); Hemoglobin 13.5 g/dL (14.0-18.0); Mean Corpuscular Hemoglobin 33.7 pg (25-34); Mean Corpuscular Hgb Conc 34.7 g/dL (32-36); Mean Platelet Volume 9.9 fL (7.4-10.4); Platelet Count 115 K/uL (130-400); RDW Coefficient of Variation 13.4 % (11.5-14.5); RDW Standard Deviation 47.4 fL (36.4-46.3); Red Blood Count 4.01 M/uL (4.7-6.1); White Blood Count 6.61 K/uL (4.8-10.8)
[2019-11-03 12:41] LABS: Albumin Level 3.7 gm/dl (3.4-5.0); BUN Creatinine Ratio 18.5 (10-20); Calcium 8.8 mg/dl (8.5-10.1); Est GFR (Non-African American) 49.2; Potassium 3.7 mmol/L (3.5-5.1)
[2019-11-03] MEDS ORDERED: INSULIN HUMAN REGULAR SC STA (12:46)
--- NOTE | 2019-11-03 12:49 | XRay Report ---
XR chest 1V portable HISTORY: weakness COMPARISON: Chest 07/31/2019. FINDINGS: The cardiac silhouette remains mildly enlarged. No new focal lung consolidations to suggest pneumonia. No evidence for pulmonary edema. No pleural effusions. No pneumothorax. IMPRESSION: Stable mild cardiomegaly. ACT 112: Negative or not required by law. Electronically signed by: Tyrone Sagastume M.D. 11/03/2019 12:48 PM
[2019-11-03 12:52] LABS: Albumin Globulin Ratio 1.2 (0.9-2); Bilirubin,Total 1.5 mg/dl (0.2-1); Globulin 3.1 gm/dl (2.5-4.0); Total Protein 6.8 gm/dl (6.4-8.2)
[2019-11-03 12:53] LABS: Troponin I 0.136 ng/ml (0-0.045)
[2019-11-03 12:54] LABS: Beta-Hydroxybutyrate 3.6 mg/dl (0.2-2.81); Thyroid Stimulating Hormone 0.674 uIu/ml (0.300-4.500)
[2019-11-03 13:00] LABS: Basophils # (auto) 0.01 K/uL (0-0.2); Basophils % (auto) 0.2 %; Immature Granulocytes # (auto) 0.02 K/uL (0.00-0.02); Immature Granulocytes % (auto) 0.3 %; Lymphocytes # (auto) 0.45 K/uL (1.2-3.4); Lymphocytes % (auto) 6.8 %; Monocytes # (auto) 0.61 K/uL (0.11-0.59); Monocytes % (auto) 9.2 %; Neutrophils # (auto) 5.52 K/uL (1.4-6.5); Neutrophils % (auto) 83.5 %
[2019-11-03] MEDS ORDERED: SODIUM CHLORIDE 0.9% 1000ML 1,000 ML IV ONE (13:04)
[2019-11-03] MEDS ORDERED: NovoLIN-R INSULIN PER UNIT CHARGE ONE (13:07)
[2019-11-03 13:29] LABS: Influenza A virus by PCR Neg for Influ A (Neg); Influenza B virus by PCR Neg for Influ B (Neg)
[2019-11-03] MEDS ORDERED: ENOXAPARIN INJ 40 MG/0.4 ML SYR SQ SCH (15:52)
[2019-11-03] MEDS ORDERED: NITROGLYCERIN SL 0.4 MG/TAB TAB SL PRN (15:52)
[2019-11-03] MEDS ORDERED: ACETAMINOPHEN 325 MG TAB PO PRN (15:52)
[2019-11-03] MEDS ORDERED: ONDANSETRON INJ 2 MG/ML 2 ML VIAL IV PRN (15:52)
[2019-11-03] MEDS ORDERED: POLYETHYLENE (MIRALAX) 17 GM PACK PO PRN (15:52)
[2019-11-03] MEDS ORDERED: ALUMINUM/MAGNESIUM SUSP 30 ML UDC PO PRN (15:52)
[2019-11-03] MEDS ORDERED: MAGNESIUM HYDROXIDE SUSP 30 ML UDC PO PRN (15:52)
[2019-11-03] MEDS: SODIUM CHLORIDE 0.9% 1000ML 1,000 ML IV SCH (16:08)
[2019-11-03] MEDS ORDERED: PHARMACY GLYCEMIC MGMT CONSULT PRN (16:21)
[2019-11-03] MEDS ORDERED: POTASSIUM CHLORIDE 20 MEQ TABCR PO STA (16:21)
[2019-11-03] MEDS ORDERED: INSULIN GLARGINE SOLOSTAR 100 UNITS/ML 3 ML PEN SC STA (16:37)
[2019-11-03] MEDS ORDERED: Nursing to Pharmacy Communication ONE (17:28)
[2019-11-03] MEDS: INSULIN ASPART 100 UNITS/ML 3 ML PEN SC SCH ×2 (17:34→21:04)
--- NOTE | 2019-11-03 20:45 | History & Physical Report ---
Date of Service November 03, 2019 Assessment & Plan (1) Rhabdomyolysis: Admit to [facility] [place] on telemetry Vital signs every 4 hours Gentle IV fluid hydration Trend down CK Troponin x3 with EKG TTE pending We will consult cardiology for abnormal EKG and left bundle branch block. DVT prophylaxis patient is on apixaban 5 mg p.o. twice daily Full code Present on Admission?: Yes (2) Presence of stent in LAD coronary artery: Continue home medication for: Aspirin 81 mg p.o. daily, atorvastatin 40 mg Toprol succinate 25 mg p.o. every morning, nitroglycerin 0.4 mg sublingual tablets as needed as directed, lisinopril 10 mg p.o. daily. Continue omega-3 fatty acids 1200 mg p.o. daily. Present on Admission?: Yes (3) Abnormal electrocardiogram: As discussed above Present on Admission?: Yes (4) Arteriosclerotic heart disease: As discussed above (5) Benign prostatic hyperplasia with urinary obstruction: Patient is not on any medicine for BPH at this time. Continue monitoring. Present on Admission?: Yes (6) Hyperlipidemia: Lipid panel pending. Continue atorvastatin 40 mg p.o. nightly. Present on Admission?: Yes (7) Hypertension: Stable. Continue home medicine aspirin 81 mg p.o. daily, lisinopril 10 mg p.o. daily, metoprolol succinate 25 mg p.o. every morning, (8) Diabetes mellitus type 2 with neurological manifestations: Diabetes mellitus-give two thirds of home dose insulin since patient is in the hospital to avoid hypoglycemia. Glycemic control per pharmacy. Accu-Cheks before meals and at bedtime. 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 Patient denies fall or injuring any part of his body. Patient lives with his girlfriend. Pat ient states that he has body aches all over, and that is why he came to the emergency room. Patient denies fever, chills, chest pain, shortness of breath, abdominal pain, frequency, urgency. Labs are reviewed: WBC 6.61, hemoglobin 13.5, initial glucose 332 , hematocrit 38.9, platelets 115, initial troponin 0.136, second troponin 0.112. TSH 0.674. Creatinine kinase 4383. Chest x-ray stable mild cardiomegaly. Decision was made to admit patient for elevated troponin and rhabdomyolysis to [facility] [place] on telemetry. Allergies Allergy/AdvReac Type Severity Reaction Status Date / Time Sulfa (Sulfonamide Allergy Unknown UNKNOWN BY Verified 11/03/19 12:02 Antibiotics) PATIENT Home Medications Home Medications Medication Instructions Recorded Confirmed Type cholecalciferol (vitamin D3) 25 1,000 units PO DAILY cap 05/16/19 11/03/19 History mcg (1,000 unit) capsule aspirin 81 mg tablet,delayed 81 mg PO DAILY 06/20/19 11/03/19 History release blood sugar diagnostic #10 ea 06/20/19 10/28/19 History lancets 33 gauge #100 ea 06/20/19 10/28/19 History nitroglycerin 0.4 mg sublingual 0.4 mg SL DIRECTED PRN tab 06/20/19 11/03/19 History tablet omega-3 fatty acids 1,200 mg PO DAILY cap 06/20/19 11/03/19 History pen needle, diabetic 32 gauge x #10 ea 06/20/19 10/28/19 History 5/32" insulin glargine 100 unit/mL (3 0 units SQ HS ml 07/05/19 11/03/19 History mL) subcutaneous pen insulin lispro 100) 100 unit/mL 0 unit SQ DIRECTED ml 07/05/19 11/03/19 History subcutaneous pen metoprolol succinate 25 mg PO QAM 07/31/19 11/03/19 History apixaban 5 mg tablet 5 mg PO BID #180 tab 08/01/19 11/03/19 Rx lisinopril 10 mg tablet 10 mg PO DAILY #90 tab 08/29/19 11/03/19 Rx Dexcom G6 Cost Analyst #1 ea NS 09/05/19 10/28/19 Rx Dexcom G6 Sensor #3 ea NS 09/05/19 10/28/19 Rx Dexcom G6 Transmitter #1 ea NS 09/05/19 10/28/19 Rx atorvastatin 40 mg tablet 40 mg PO HS #90 tab 09/21/19 11/03/19 Rx naproxen sodium [Aleve] 220 mg PO UD 11/03/19 11/03/19 History Past Med/Surg History Medical History Abnormal electrocardiogram 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 Calculus of ureter (06/07/12) Central retinal vein occlusion Chronic prostatitis Chronic rhinitis Coronary atherosclerosis of [place] coronary vessel (06/07/12) Cough Dermatitis 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, insulin dependent Diabetic retinopathy Dupuytrens contracture Dysesthesia Elevated PSA Enlarged prostate with lower urinary tract symptoms (LUTS) Former smoker Hematospermia Hyperlipidemia Hypertension Impaired sensation Laryngopharyngeal reflux Leukopenia Microalbuminuria due to type 2 diabetes mellitus Microscopic hematuria Mild aortic regurgitation Mild aortic stenosis Mild mitral regurgitation Myocardial infarction (06/07/12) Nephrolithiasis Nontoxic multinodular goiter Other and unspecified hyperlipidemia (06/07/12) Paroxysmal atrial fibrillation PND (post-nasal drip) Sepsis (06/07/12) Septicemia due to Gram-negative organism, unspecified (06/07/12) Vitamin D deficiency Surgical History S/P drug eluting coronary stent placement Family History Brother Coronary heart disease Father Angina pectoris Carcinoma of pancreas Mother Congestive heart failure Unknown Diabetes Heart disease Breast cancer Hypertension Social History Preferred Language: Polish Communication Ability: Effective 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 Beliefs That Will Affect Care: None Current Living Situation: Significant Other Other Information That Helps Us Care for You: No Feels Safe at Home: Yes Safety Concerns: Feels Safe At This Time Smoking Status: Former smoker Do You Dip or Chew Tobacco: No ; Second Hand Exposure: No ; Tobacco Cessation Education Requested by Patient: No Hx Alcohol Use: No Hx Substance Use: No Review of Systems Review of Systems: All systems reviewed & are unremarkable except as noted in HPI & below Physical Exam Constitutional: WD/WN, vitals as above well developed Eyes: PERRL, conjunctivae normal, anicteric sclerae ENMT: external ear and nose normal, oropharynx normal Neck: trachea midline, no thyromegaly Respiratory: normal respiratory effort, lungs clear to auscultation Cardiovascular: Heart Sounds: normal S1, normal S2 and + murmur Vessels: dorsalis pedis pulses present Gastrointestinal (Abdomen): normal bowel sounds, soft, nontender, no hepatosplenomegaly Musculoskeletal: Patient has multiple bruising and soreness all over his body. Skin: + turgor decreased and + pallor Neurologic: patellar DTR's 2+ bilat, sensation intact Psychiatric: A+Ox3, euthymic affect Lymphatic: no cervical or axillary lymphadenopathy Results & Data Vital Signs (Past 12 Hours) Vital Signs Temp Pulse Resp BP Pulse Ox 11/03/19 13:30 64 19 154/72 H 11/03/19 13:00 64 15 161/73 H 11/03/19 12:30 66 20 143/66 H 94 11/03/19 12:00 67 21 133/68 94 11/03/19 11:38 95 11/03/19 11:16 36.8 C 73 18 129/70 95 Code Status & VTE Plan Code Status Full code VTE Prophylaxis Plan VTE Prophylaxis will be ordered: Yes PG Care Time/CCT Total # of Minutes Spent Total Time Spent with Patient: Total time spent is greater than 50% in coordination of care (as documented) at patient's floor/unit and/or counseling patient:
[2019-11-03] MEDS ORDERED: INSULIN GLARGINE SOLOSTAR 100 UNITS/ML 3 ML PEN SC ONE (21:00)
[2019-11-03] MEDS ORDERED: ATORVASTATIN 40 MG TAB PO SCH (21:00)
[2019-11-03] MEDS: APIXABAN 5 MG TABLET PO SCH (21:02)
[2019-11-04] MEDS: INSULIN ASPART 100 UNITS/ML 3 ML PEN SC SCH ×6 (00:18→21:18)
[2019-11-04 00:36] LABS: Appearance Urine Turbid (Clear); Bacteria Urine Automated Negative (Negative); Bilirubin Urine Negative (Negative); Blood Urine 2+ (Negative); Color Urine Dark Yellow; Epithelial Cell Urine Auto 20-30 /lpf (0-5); Glucose Urine UA 1+ (Negative); Ketones Urine 2+ (Negative); Leukocyte Esterase Urine Negative (Negative); Nitrite Urine Negative (Negative); Protein Urine Trace (Negative); RBC Urine Automated 0-4 /hpf (0-4); Specific Gravity Urine 1.021 (1.000-1.030); Urobilinogen Urine Negative (Negative)
[2019-11-04] MEDS: SODIUM CHLORIDE 0.9% 1000ML 1,000 ML IV SCH ×2 (03:32→16:18)
[2019-11-04 05:54] LABS: Basophils # (auto) 0.01 K/uL (0-0.2); Basophils % (auto) 0.2 %; Eosinophils # (auto) 0.01 K/uL (0-0.5); Eosinophils % (auto) 0.2 %; Hematocrit (blood only) 36.5 % (42-52); Hemoglobin 12.5 g/dL (14.0-18.0); Immature Granulocytes # (auto) 0.01 K/uL (0.00-0.02); Immature Granulocytes % (auto) 0.2 %; Lymphocytes % (auto) 9.9 %; Mean Corpuscular Hemoglobin 33.4 pg (25-34); Mean Corpuscular Hgb Conc 34.2 g/dL (32-36); Mean Corpuscular Volume 97.6 fL (80-100); Mean Platelet Volume 9.5 fL (7.4-10.4); Monocytes # (auto) 0.56 K/uL (0.11-0.59); Monocytes % (auto) 11.1 %; Neutrophils # (auto) 3.97 K/uL (1.4-6.5); Neutrophils % (auto) 78.4 %; Platelet Count 110 K/uL (130-400); RDW Coefficient of Variation 13.2 % (11.5-14.5); RDW Standard Deviation 47.2 fL (36.4-46.3); Red Blood Count 3.74 M/uL (4.7-6.1); White Blood Count 5.06 K/uL (4.8-10.8)
[2019-11-04 06:37] LABS: BUN Creatinine Ratio 22.2 (10-20); Calcium 8.3 mg/dl (8.5-10.1); Creatinine Clr Calc Pharmacy 73.8 ml/min; Est GFR (African American) 93.2; Est GFR (Non-African American) 80.4; Potassium 3.4 mmol/L (3.5-5.1)
[2019-11-04 06:42] LABS: Estimated Average Glucose 180 mg/dl; Hemoglobin A1C 7.9 % (4.5-5.6)
[2019-11-04 06:50] LABS: Bilirubin,Total 1.2 mg/dl (0.2-1)
--- NOTE | 2019-11-04 08:12 | Pharmacy Report ---
Pharmacy Glycemic Short Note 2 - Date of Service November 04, 2019 - Glycemic Short BSG Results (Last 24 hours): 11/03/19 11/03/19 11/03/19 11:49 11:54 14:31 Glucose 347 H* POC Glucose 332 H* 217 H 11/03/19 11/03/19 11/03/19 16:40 20:46 22:11 Glucose POC Glucose 97 105 H 110 H 11/04/19 11/04/19 11/04/19 00:00 03:30 05:14 Glucose 106 H POC Glucose 127 H 115 H OUTPATIENT ANTIDIABETIC REGIMEN: * Lantus 24 units HS (however pt reports up to 36 units per dose) * Lispro with meals, uncertain of dose * A1c = 7.9% 11/14/19 ASSESSMENT: * Type 2 diabetic admitted for weakness, rhabdo, R/O ACS * Fasting BSG 115 this AM with 24 units Lantus on board * Ordered a diet this AM * Will continue basal/bolus SQ regimen based upon reported out-pt regimen and consideration of weight based doses * Lantus will be scaled to give up to 24 units HS * Novolog doses will be based upon weight and "moderate stress" level initially PLAN FOR INPATIENT GLYCEMIC CONTROL: * Basal insulin * Lantus Q HS based upon BSG: * 16 units if BSG less than 140 * 24 units if BSG 140 or greater * Bolus insulin * NovoLog per scale ACHS or Q6hrs while NPO * Goal Range: Low 110 mg/dL - High 140 mg/dL * Correction Factor: 25 mg/dL/unit * Nutritional / Prandial insulin per carb ratio of 1 unit per 8 grams CHO consumed PLAN FOR DISCHARGE: * to be determined
[2019-11-04] MEDS: APIXABAN 5 MG TABLET PO SCH ×2 (09:00→21:17)
[2019-11-04] MEDS: CHOLECALCIFEROL 1,000 UNITS TAB PO SCH (09:00)
[2019-11-04] MEDS: METOPROLOL SUCC 25MG EXT REL TAB PO SCH (09:00)
[2019-11-04] MEDS: lisinopriL 10 MG TAB PO SCH (09:00)
[2019-11-04] MEDS: OMEGA-3 (PURIFIED FISH OIL) 1 GM CAP PO SCH (09:00)
[2019-11-04] MEDS: ASPIRIN 81 MG ECTAB PO SCH (09:00)
--- NOTE | 2019-11-04 09:52 | Medical Student Progress Note ---
Date of Service November 04, 2019 Assessment & Plan (1) Rhabdomyolysis: Pt is 84M with hx of CAD s/p LAD stent in 1999, paroxysmal atrial fibrillation, HTN, HLD, T2DM, hx of falls, and BPH presenting to hospital after weakness leading to prolonged stay on floor for a couple of hours x1 day ago, being worked up for rhabdomyolysis and new abnormal EKG findings. Weakness/metabolic encephalopathy - Improved overnight but still feeling weak. - pt was on floor at house for a couple of hours due to weakness before being able to call 911. - Negative brain imaging. - Elevated CK in ED. Have fever last night. - U/A 11/04 Turbid appearance, trace protein, +1 Glu, +2 Ketones, +2 Blood. Negative nitrite - cultures pending. - No arrhythmias noted on Tele. - follow. Rhabdomyolysis sec to statin use - pt has been taking atorvastatin 40mg for a couple of years. Has had episodes of muscle weakness. - Admission CK 4383, today 3340, continue to monitor - Continue IV fluids - Holding Atorvastatin. New first degree AV block with LBBB Mild troponin elevated - Possible demand ischemia - Pt denies dyspnea at rest and with exertion, chest pain, fatigue, orthopnea, or palpitations - CXR 11/03 Stable mild cardiomegaly - EKG 11/03 (x3) Sinus rhythm with 1st degree AV block, left axis deviation, LBBB - ECHO 11/04 Normal LV size and systolic function, EJ 55%, no regional wall motion abnormalities, septal motion consistent with bundle-branch block -EF reduced from previous echo 09/09/19 at 65-70% - troponin on admission 0.136, 3x trended to 0.108. - Consulted cardiology Episode of fever - Overnight, pt was febrile with peak temperature of 39.3, currently 37.9. No fever prior to admission - No leukocytosis (wbc 5.06 today) and no obvious signs of infection - Urine, blood, and sputum culture pending - Continue to monitor T2DM, insulin-dependent - Admission HbA1C 7.9. BG is 106 today (previously 347) - Pt reports that he struggles with diet and that he eats sugary foods - Lantus and Novolog, sliding scale, DM diet CAD s/p LAD stent (1999), HTN, paroxysmal atrial fibrillation - continue home medicine - ASA 81mg, nitroglycerin 0.4mg, metoprolol succinate 25mg, lisinopril 10mg - Followed by ironworker foreman () - last appointment in July, apixaban increased from 2.5mg to 5.0mg BID, pt has been tolerating well HLD - Hold home atorvastatin BPH - Not taking any medication - Previous PSA of 4.25 in 2018 - Followed by urologist - has future appointment scheduled already Previous R fracture Ribs - Mechanical fall in July - T11 posterior rib fracture - CXR 07/31 No rib fracture - Patient denies any rib pain currently FEN/GI: heart healthy and DM Dispo: telemetry Code: Full DVTPX: apixaban (2) Abnormal electrocardiogram: (3) Weakness: (4) Diabetes mellitus type 2, insulin dependent: (5) Presence of stent in LAD coronary artery: (6) Benign prostatic hyperplasia: (7) Hyperlipidemia: (8) Arteriosclerotic heart disease: (9) Hypertension: Supervising Attestation Medical student Supervision Note: I independently interviewed and examined the patient and verified the reynolds history and physical, reviewed labs and image studies, discussed the case with Jacqueline Rodriguez and agree with the findings and care plan. Subjective Pt is a 84 year old male with hx of CAD s/p LAD stent in 1999), T2DM, paroxysmal A.fib, BPH, HDL, and HTN presented to hospital after episode of weakness x1 day ago. Pt reports that he was sitting in a chair and was bending down to reach for something when he "froze". He lowered himself to the ground on his R shoulder and was unable to get up. He was on the ground for a couple of hours before b tashing able to call 911. Today, pt is mildly confused, but is able to give history that is is verified by son and girlfriend. Son states that pt has been having episodes of weakness with preceding "flu-like" and respiratory symptoms for the past 3 years. These episodes are fast/transient and pt is able to pick himself up afterwards. One year ago, he had a fall resulting in closed head injury and 3 month ago, he had a mechanical fall that fractured his T11 posterior rib that is resolved. Overnight, pt was febrile and has muscle ache. He has been taking atorvastatin for 2 years with no reported symptoms. He is being followed by for cardio concerns and was otherwise stable. Review of Systems Constitutional: + body aches and + weakness; no fever, no chills and no fatigue Ear, Nose, Mouth, Throat: no dizziness Respiratory: no cough, no dyspnea, no dyspnea on exertion and no pain on inspiration Cardiovascular: no chest pain, no dyspnea on exertion, no orthopnea, no palpitations, no lightheadedness and no edema Gastrointestinal: no abdominal pain, no bloating, no nausea and no vomiting Genitourinary: + urinary frequency and + urinary hesitancy; no dysuria Musculoskeletal: + back pain, + myalgia and + body aches Integumentary: no non-healing lesions and no skin ulcer Neurologic: + unsteadiness, + falls and + radiating pain (sharp and achy pain in R hip to legs, worse with movement and having his wallet); no dizziness Physical Exam Constitutional: + obese, cooperative and comfortable Eyes: PERRL, conjunctivae normal, anicteric sclerae ENMT: external ear and nose normal, oropharynx normal Neck: trachea midline, no thyromegaly Respiratory: normal respiratory effort; no respiratory distress and does not use accessory muscles Auscultation: + wheezes (minimal wheeze in lower lung medina b/l ) Cardiovascular: Rate/Rhythm: regular rate and regular rhythm Heart Sounds: + murmur Vessels: no carotid bruit Extremities: no edema Gastrointestinal (Abdomen): normal bowel sounds, soft, nontender, no hepatosplenomegaly Musculoskeletal: no cyanosis or clubbing, extremities motor strength 5/5 Skin: no rashes, warm and dry some bruising on anterior R leg, healing Neurologic: patellar DTR's 2+ bilat, sensation intact Psychiatric: Orientation: oriented to person and oriented to time; + not oriented to place (thinks he's at home) Results & Data Vital Signs (Past 12 Hours) Vital Signs Temp Pulse Pulse Resp BP Pulse Ox 11/04/19 07:34 37.9 C H 83 20 178/80 H 94 11/04/19 07:17 77 11/04/19 04:27 36.7 C 70 16 161/74 H 93 11/04/19 01:00 89 11/03/19 23:00 37.6 C H 11/03/19 22:39 39.3 C H 89 20 177/80 H 92 11/03/19 22:19 37.5 C 92 H 184/84 H 93 Laboratory Results Abnormal lab results 11/03/19 11/03/19 11/03/19 Range/Units 11:49 11:49 14:31 RBC (4.7-6.1) M/uL Hgb (14.0-18.0) g/dL Hct (42-52) % RDW Std Deviation (36.4-46.3) fL Plt Count (130-400) K/uL Lymph # (Auto) 0.45 L (1.2-3.4) K/uL Sunflower # (Auto) 0.61 H (0.11-0.59) K/uL Sodium 133 L (136-145) mmol/L Potassium (3.5-5.1) mmol/L BUN 24 H (7-18) mg/dl BUN/Creatinine Ratio (10-20) Glucose 347 H* (70-99) mg/dl POC Glucose 217 H (70-99) Hemoglobin A1c (4.5-5.6) % Calcium (8.5-10.1) mg/dl Total Bilirubin 1.5 H (0.2-1) mg/dl AST 85 H (15-37) U/L Total Creatine Kinase 4383 H (39-308) U/L Troponin I 0.136 H* (0-0.045) ng/ml Total Protein (6.4-8.2) gm/dl Albumin (3.4-5.0) gm/dl Beta-Hydroxybutyric Acd 3.60 H (0.2-2.81) mg/dl Urine Appearance (Clear) Urine Protein (Negative) Urine Glucose (UA) (Negative) Urine Ketones (Negative) Urine Blood (Negative) U Epithel Cells (Auto) (0-5) /lpf Granular Casts (0) /lpf 11/03/19 11/03/19 11/03/19 Range/Units 15:36 20:46 21:02 RBC (4.7-6.1) M/uL Hgb (14.0-18.0) g/dL Hct (42-52) % RDW Std Deviation (36.4-46.3) fL Plt Count (130-400) K/uL Lymph # (Auto) (1.2-3.4) K/uL Sunflower # (Auto) (0.11-0.59) K/uL Sodium (136-145) mmol/L Potassium (3.5-5.1) mmol/L BUN (7-18) mg/dl BUN/Creatinine Ratio (10-20) Glucose (70-99) mg/dl POC Glucose 105 H (70-99) Hemoglobin A1c (4.5-5.6) % Calcium (8.5-10.1) mg/dl Total Bilirubin (0.2-1) mg/dl AST (15-37) U/L Total Creatine Kinase (39-308) U/L Troponin I 0.112 H* 0.108 H* (0-0.045) ng/ml Total Protein (6.4-8.2) gm/dl Albumin (3.4-5.0) gm/dl Beta-Hydroxybutyric Acd (0.2-2.81) mg/dl Urine Appearance (Clear) Urine Protein (Negative) Urine Glucose (UA) (Negative) Urine Ketones (Negative) Urine Blood (Negative) U Epithel Cells (Auto) (0-5) /lpf Granular Casts (0) /lpf 11/03/19 11/04/19 11/04/19 Range/Units 22:11 00:00 00:10 RBC (4.7-6.1) M/uL Hgb (14.0-18.0) g/dL Hct (42-52) % RDW Std Deviation (36.4-46.3) fL Plt Count (130-400) K/uL Lymph # (Auto) (1.2-3.4) K/uL Sunflower # (Auto) (0.11-0.59) K/uL Sodium (136-145) mmol/L Potassium (3.5-5.1) mmol/L BUN (7-18) mg/dl BUN/Creatinine Ratio (10-20) Glucose (70-99) mg/dl POC Glucose 110 H 127 H (70-99) Hemoglobin A1c (4.5-5.6) % Calcium (8.5-10.1) mg/dl Total Bilirubin (0.2-1) mg/dl AST (15-37) U/L Total Creatine Kinase (39-308) U/L Troponin I (0-0.045) ng/ml Total Protein (6.4-8.2) gm/dl Albumin (3.4-5.0) gm/dl Beta-Hydroxybutyric Acd (0.2-2.81) mg/dl Urine Appearance Turbid A (Clear) Urine Protein Trace H (Negative) Urine Glucose (UA) 1+ H (Negative) Urine Ketones 2+ H (Negative) Urine Blood 2+ H (Negative) U Epithel Cells (Auto) 20-30 H (0-5) /lpf Granular Casts 1-5 H (0) /lpf 11/04/19 11/04/19 11/04/19 Range/Units 03:30 05:14 05:14 RBC 3.74 L (4.7-6.1) M/uL Hgb 12.5 L (14.0-18.0) g/dL Hct 36.5 L (42-52) % RDW Std Deviation 47.2 H (36.4-46.3) fL Plt Count 110 L (130-400) K/uL Lymph # (Auto) 0.50 L (1.2-3.4) K/uL Sunflower # (Auto) (0.11-0.59) K/uL Sodium (136-145) mmol/L Potassium 3.4 L (3.5-5.1) mmol/L BUN 19 H (7-18) mg/dl BUN/Creatinine Ratio 22.2 H (10-20) Glucose 106 H (70-99) mg/dl POC Glucose 115 H (70-99) Hemoglobin A1c (4.5-5.6) % Calcium 8.3 L (8.5-10.1) mg/dl Total Bilirubin 1.2 H (0.2-1) mg/dl AST 97 H (15-37) U/L Total Creatine Kinase (39-308) U/L Troponin I (0-0.045) ng/ml Total Protein 6.0 L (6.4-8.2) gm/dl Albumin 3.0 L (3.4-5.0) gm/dl Beta-Hydroxybutyric Acd (0.2-2.81) mg/dl Urine Appearance (Clear) Urine Protein (Negative) Urine Glucose (UA) (Negative) Urine Ketones (Negative) Urine Blood (Negative) U Epithel Cells (Auto) (0-5) /lpf Granular Casts (0) /lpf 11/04/19 11/04/19 11/04/19 Range/Units 05:14 05:14 11:55 RBC (4.7-6.1) M/uL Hgb (14.0-18.0) g/dL Hct (42-52) % RDW Std Deviation (36.4-46.3) fL Plt Count (130-400) K/uL Lymph # (Auto) (1.2-3.4) K/uL Sunflower # (Auto) (0.11-0.59) K/uL Sodium (136-145) mmol/L Potassium (3.5-5.1) mmol/L BUN (7-18) mg/dl BUN/Creatinine Ratio (10-20) Glucose (70-99) mg/dl POC Glucose 224 H (70-99) Hemoglobin A1c 7.9 H (4.5-5.6) % Calcium (8.5-10.1) mg/dl Total Bilirubin (0.2-1) mg/dl AST (15-37) U/L Total Creatine Kinase 3440 H (39-308) U/L Troponin I (0-0.045) ng/ml Total Protein (6.4-8.2) gm/dl Albumin (3.4-5.0) gm/dl Beta-Hydroxybutyric Acd (0.2-2.81) mg/dl Urine Appearance (Clear) Urine Protein (Negative) Urine Glucose (UA) (Negative) Urine Ketones (Negative) Urine Blood (Negative) U Epithel Cells (Auto) (0-5) /lpf Granular Casts (0) /lpf Medications Administered Current Inpatient Medications Acetaminophen (Tylenol) 650 mg PO Q4H PRN PRN Reason: Pain or Fever Stop: 12/03/19 15:51 Last Admin: 11/03/19 22:36 Dose: 650 mg Documented by: Al Hydrox/Mg Hydrox/Simethicone (Maalox) 15 ml PO Q4H PRN PRN Reason: Dyspepsia Stop: 12/03/19 15:51 Apixaban (Eliquis) 5 mg PO BID [facility] Stop: 12/03/19 20:59 Last Admin: 11/04/19 09:00 Dose: 5 mg Documented by: Aspirin (Ecotrin Ectab) 81 mg PO DAILY [facility] Stop: 12/04/19 08:59 Last Admin: 11/04/19 09:00 Dose: 81 mg Documented by: Atorvastatin Calcium (Lipitor) 40 mg PO [facility] Stop: 12/03/19 20:59 Last Admin: 11/03/19 21:05 Dose: 40 mg Documented by: Fish Oil ([place]-3 (Purified Fish Oil)) 1 gm PO DAILY [facility] Stop: 12/04/19 08:59 Last Admin: 11/04/19 09:00 Dose: 1 gm Documented by: Sodium Chloride (Nss 1000ml) 1,000 mls @ 80 mls/hr IV .[id number] [facility] Stop: 12/03/19 16:29 Last Admin: 11/04/19 03:32 Dose: 80 mls/hr Documented by: Insulin Aspart (Novolog Flexpen) 0 units SC [facility] Stop: 12/03/19 16:59 Last Admin: 11/04/19 08:59 Dose: 4 units Documented by: Insulin Glargine (Lantus Solostar Pen) 0 units SC [facility]; Protocol Stop: 12/04/19 20:59 Lisinopril (Zestril) 10 mg PO DAILY [facility] Stop: 12/04/19 08:59 Last Admin: 11/04/19 09:00 Dose: 10 mg Documented by: Magnesium Hydroxide (Milk Of Magnesia) 30 ml PO Q12H PRN PRN Reason: Constipation Stop: 12/03/19 15:51 Metoprolol Succinate ([facility] Xl) [facility] Stop: 12/04/19 08:59 Last Admin: 11/04/19 09:00 Dose: 25 mg Documented by: Miscellaneous Information (Consult Glycemic Management Pharmacy) 1 ea N/A UD PRN PRN Reason: Consult Stop: 12/03/19 16:20 Nitroglycerin (Nitrostat) 0.4 mg SL UD PRN PRN Reason: Chest Pain Stop: 12/03/19 15:51 Ondansetron HCl (Zofran) 4 mg IV Q6H PRN PRN Reason: Nausea Stop: 12/03/19 15:51 Polyethylene Glycol (Miralax Powder Packet) 17 gm PO DAILY PRN PRN Reason: Constipation Stop: 12/03/19 15:51 Vitamin D (Vitamin D3) 1,000 units PO DAILY [facility] Stop: 12/04/19 08:59 Last Admin: 11/04/19 09:00 Dose: 1,000 units Documented by: Resident Activity Tracking Resident Involvement: Resident Care Provided Care Provided: Adult Hospital Medicine
[2019-11-04] MEDS ORDERED: POTASSIUM CHLORIDE 20 MEQ TABCR PO STA (13:58)
--- NOTE | 2019-11-04 15:42 | Cardiology Consultation ---
Date of Consultation November 04, 2019 Assessment & Plan (1) Weakness: His episode of weakness and inability to get up is puzzling. He describes some neurologic type symptoms such as not being able to get his feet underneath him and having things swirling around but does not describe hemodynamic symptoms, sometimes however they can be difficult for patients to describe. It is conceivable this represented some sort of long hypotensive episode, perhaps due to some arrhythmia which in his case could either be an atrial arrhythmia such as atrial fibrillation or heart block. So far nothing is showing up on the monitor. With only one episode it is difficult to determine what to do. One option would be a 30-day MCOT monitor as an outpatient, another would be an implanted loop recorder. Alternatively since he did not lose consciousness and it does not appear to have been a severe dangerous episode he could simply be watched to see if he has a recurrence. I will leave that up to him and the primary service. (2) Rhabdomyolysis: He has evidence of muscle damage, presumably from laying on the floor, although that would not explain his slight troponin elevation. That might more go along with an arrhythmia although any type of stress could probably produce that result as he does have known coronary artery disease. (3) Coronary atherosclerosis of [place] coronary vessel: He has known coronary artery disease but has not had symptoms to suggest progression. This presentation is certainly not typical of an acute coronary syndrome, based on his symptoms and the enzyme pattern. I do not think I would pursue further at this time. (4) Paroxysmal atrial fibrillation: He has a history of atrial fibrillation which is never been very symptomatic. It is conceivable he had a prolonged episode resulting in his presentation although that would not be consistent with his prior episodes. He probably should remain on anticoagulation. (5) LBBB (left bundle branch block): He has left bundle branch block and first-degree AV block which is a little bit worrisome in light of this event. His presenting event could have been heart block and bradycardia. We have not observed that on monitoring here, and since he is never had a prior episode of not sure what the yield would be for long-term monitoring. It might be the safest option however. History of Present Illness Reason for Consultation: Elevated Troponin Attending Physician: Kecia Nowak MD History of Present Illness This is an 84-year-old male with a history of hyperlipidemia, diabetes mellitus and coronary artery disease identified a catheterization in 1999, he has had LAD stent placement at [facility]. More recently he had chest discomfort in July 2017 and had a stress echo performed with evidence of ischemia in the LAD distribution. He had catheterization July 06, 2017 where he had 30% distal left main, 20% proximal LAD prior to his stent, a 30% in-stent restenosis and a number of other lesions in other distributions. He did not have intervention performed. He also was observed to have atrial fibrillation during that admission and was started on Eliquis. He did have an event monitor following that admission and has had several episodes of atrial fibrillation identified. He presents now to the emergency room after falling down on the floor and staying there for several hours. He developed generalized body pain and came into the emergency room. There he was found to have an elevated CK (over 4000) consistent with rhabdomyolysis as well as a slightly elevated opponent at 0.136. Another troponin done 4 hours later was 0.112 and another one done 6 hours after that was 0.108. He denied chest discomfort. At the time of my evaluation he related a similar story, it sounds as though his was not present at the time and he describes the event in a somewhat unusual way. He apparently tried to get up out of a chair and ended up on the floor but does not think he lost consciousness, he said things seemed to be "swirling around "and his said that he told her that things looked somewhat dark. Eventually all this resolved. He did not have palpitations, he did not have chest discomfort and he does not believe he lost consciousness during the ordeal. Allergies Allergy/AdvReac Type Severity Reaction Status Date / Time Sulfa (Sulfonamide Allergy Unknown UNKNOWN BY Verified 11/03/19 12:02 Antibiotics) PATIENT Home Medications Home Medications Medication Instructions Recorded Confirmed Type cholecalciferol (vitamin D3) 25 1,000 units PO DAILY cap 05/16/19 11/03/19 History mcg (1,000 unit) capsule aspirin 81 mg tablet,delayed 81 mg PO DAILY 06/20/19 11/03/19 History release blood sugar diagnostic #10 ea 06/20/19 10/28/19 History lancets 33 gauge #100 ea 06/20/19 10/28/19 History nitroglycerin 0.4 mg sublingual 0.4 mg SL DIRECTED PRN tab 06/20/19 11/03/19 History tablet omega-3 fatty acids 1,200 mg PO DAILY cap 06/20/19 11/03/19 History pen needle, diabetic 32 gauge x #10 ea 06/20/19 10/28/19 History 5/32" insulin glargine 100 unit/mL (3 0 units SQ HS ml 07/05/19 11/03/19 History mL) subcutaneous pen insulin lispro 100) 100 unit/mL 0 unit SQ DIRECTED ml 07/05/19 11/03/19 History subcutaneous pen metoprolol succinate 25 mg PO QAM 07/31/19 11/03/19 History apixaban 5 mg tablet 5 mg PO BID #180 tab 08/01/19 11/03/19 Rx lisinopril 10 mg tablet 10 mg PO DAILY #90 tab 08/29/19 11/03/19 Rx Dexcom G6 Commutator Repairer #1 ea NS 09/05/19 10/28/19 Rx Dexcom G6 Sensor #3 ea NS 09/05/19 10/28/19 Rx Dexcom G6 Transmitter #1 ea NS 09/05/19 10/28/19 Rx atorvastatin 40 mg tablet 40 mg PO HS #90 tab 09/21/19 11/03/19 Rx naproxen sodium [Aleve] 220 mg PO UD 11/03/19 11/03/19 History Patient History Medical History Abnormal electrocardiogram 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 Calculus of ureter (06/07/12) Central retinal vein occlusion Chronic prostatitis Chronic rhinitis Coronary atherosclerosis of [place] coronary vessel (06/07/12) Cough Dermatitis 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, insulin dependent Diabetic retinopathy Dupuytrens contracture Dysesthesia Elevated PSA Enlarged prostate with lower urinary tract symptoms (LUTS) Former smoker Hematospermia Hyperlipidemia Hypertension Impaired sensation Laryngopharyngeal reflux Leukopenia Microalbuminuria due to type 2 diabetes mellitus Microscopic hematuria Mild aortic regurgitation Mild aortic stenosis Mild mitral regurgitation Myocardial infarction (06/07/12) Nephrolithiasis Nontoxic multinodular goiter Other and unspecified hyperlipidemia (06/07/12) Paroxysmal atrial fibrillation PND (post-nasal drip) Sepsis (06/07/12) Septicemia due to Gram-negative organism, unspecified (06/07/12) Vitamin D deficiency Surgical History S/P drug eluting coronary stent placement Family History Brother Coronary heart disease Father Angina pectoris Carcinoma of pancreas Mother Congestive heart failure Unknown Diabetes Heart disease Breast cancer Hypertension Social History Preferred Language: Bulgarian Communication Ability: Effective 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 HEENT: Unremarkable Neck: No jugular venous distention, carotid pulses are normal and equal bilaterally without bruits. Pulmonary: Clear to auscultation bilaterally. Cardiac: Regular rhythm with no murmur, gallop or rub. Abdomen: Soft, nontender with normal bowel sounds. Extremities: No edema. Distal pulses intact. Neurologic: No focal findings. Gait is steady. Skin: No rash, ecchymoses or petechiae. Results & Data Vital Signs (Past 12 Hours) Vital Signs Temp Pulse Pulse Pulse Resp BP Pulse Ox 11/04/19 15:14 36.4 C L 69 18 137/68 94 11/04/19 11:17 37.0 C 77 16 152/69 H 92 11/04/19 07:34 37.9 C H 83 20 178/80 H 94 11/04/19 07:17 77 11/04/19 04:27 36.7 C 70 16 161/74 H 93 Laboratory Results Cardiac Enzymes 11/03/19 11/04/19 11/04/19 Range/Units 21:02 05:14 05:14 AST 97 H (15-37) U/L CK-MB (CK-2) Cancelled Troponin I 0.108 H* (0-0.045) ng/ml Lipids 11/04/19 Range/Units 05:14 Triglycerides 87 (0-150) mg/dl Cholesterol 83 (0-200) mg/dl HDL Cholesterol 35 mg/dl Cholesterol/HDL Ratio 2 CBC 11/04/19 Range/Units 05:14 WBC 5.06 (4.8-10.8) K/uL RBC 3.74 L (4.7-6.1) M/uL Hgb 12.5 L (14.0-18.0) g/dL Hct 36.5 L (42-52) % Plt Count 110 L (130-400) K/uL Neut # (Auto) 3.97 (1.4-6.5) K/uL Lymph # (Auto) 0.50 L (1.2-3.4) K/uL [place] # (Auto) 0.56 (0.11-0.59) K/uL Eos # (Auto) 0.01 (0-0.5) K/uL Baso # (Auto) 0.01 (0-0.2) K/uL Comprehensive Metabolic Panel 11/04/19 Range/Units 05:14 Sodium 137 (136-145) mmol/L Potassium 3.4 L (3.5-5.1) mmol/L Chloride 105 (98-107) mmol/L Carbon Dioxide 27 (21-32) mmol/L BUN 19 H (7-18) mg/dl Creatinine 0.84 D (0.6-1.4) mg/dl Glucose 106 H (70-99) mg/dl Calcium 8.3 L (8.5-10.1) mg/dl AST 97 H (15-37) U/L ALT 53 (12-78) U/L Alkaline Phosphatase 72 (45-117) U/L Total Protein 6.0 L (6.4-8.2) gm/dl Albumin 3.0 L (3.4-5.0) gm/dl Intake and Output 11/04/19 11/04/19 11/04/19 06:59 14:59 22:59 Intake Total 111 / 2812 1000 / 1000 Output Total 200 / 200 Balance 1112811 -200 / 800 1000 / 800 Intake: IV 91 / 2 1000 / 1000 Nss 1000ML 1,000 ml @ 80 mls/hr 91 1000 / 1000 IV .[id number] SILAS Rx#:[id number] Oral 200 / 400 Output: Urine 200 / 200 Other: # Unmeasured Voids 1 Weight 93.2 kg Diagnostic Findings An electrocardiogram done on arrival November 03, 2019 at 11:30 AM shows sinus rhythm at a rate of 71 bpm with first-degree AV block and left bundle branch block. A subsequent electrocardiogram the same day at 1610 is quite similar as is another one done this morning at 722. An echocardiogram was done November 04, 2019 at 7:20 AM, this shows normal left ventricular size and function with an ejection fraction of 55% and moderate concentric left ventricular hypertrophy. There is aortic sclerosis without significant stenosis. Telemetry: Sinus rhythm, no heart block or bradycardia, no atrial arrhythmias. PG Care Time/CCT Total # of Minutes Spent Total Time Spent with Patient: Total time spent is greater than 50% in coordination of care (as documented) at patient's floor/unit and/or counseling patient:
[2019-11-04] MEDS ORDERED: INSULIN GLARGINE SOLOSTAR 100 UNITS/ML 3 ML PEN SC SCH (21:00)
[2019-11-05] MEDS: SODIUM CHLORIDE 0.9% 1000ML 1,000 ML IV SCH (04:55)
[2019-11-05 05:39] LABS: Eosinophils # (auto) 0.01 K/uL (0-0.5); Eosinophils % (auto) 0.2 %; Hematocrit (blood only) 35.6 % (42-52); Hemoglobin 12.5 g/dL (14.0-18.0); Lymphocytes # (auto) 0.55 K/uL (1.2-3.4); Lymphocytes % (auto) 12.3 %; Mean Corpuscular Hemoglobin 33.4 pg (25-34); Mean Corpuscular Hgb Conc 35.1 g/dL (32-36); Mean Corpuscular Volume 95.2 fL (80-100); Mean Platelet Volume 9.3 fL (7.4-10.4); Monocytes # (auto) 0.43 K/uL (0.11-0.59); Monocytes % (auto) 9.6 %; Neutrophils # (auto) 3.49 K/uL (1.4-6.5); Neutrophils % (auto) 77.9 %; Platelet Count 106 K/uL (130-400); RDW Coefficient of Variation 13.2 % (11.5-14.5); RDW Standard Deviation 45.9 fL (36.4-46.3); Red Blood Count 3.74 M/uL (4.7-6.1); White Blood Count 4.48 K/uL (4.8-10.8)
[2019-11-05 06:01] LABS: Albumin Level 2.8 gm/dl (3.4-5.0); BUN Creatinine Ratio 20.9 (10-20); Calcium 7.9 mg/dl (8.5-10.1); Creatinine Clr Calc Pharmacy 78.5 ml/min; Est GFR (African American) 95.6; Est GFR (Non-African American) 82.5; Potassium 3.3 mmol/L (3.5-5.1)
[2019-11-05 06:15] LABS: Albumin Globulin Ratio 0.9 (0.9-2); Globulin 3.2 gm/dl (2.5-4.0)
--- NOTE | 2019-11-05 06:36 | Emergency Department Note ---
Entered by Martha Burt acting as a scribe for Bruno Sargent MD History of Present Illness General Chief complaint: Illness Stated complaint: bad cold, dehydrated Time Seen by Provider: 11/03/19 11:58 Source: patient History of Present Illness Onset (ago): hour(s) greater than 10 (12) Location: head (Fall) Pain Consistency: + other (episode) Maximum Pain Intensity: 8 Quality: + other (fall) Associated symptoms: + cough, + weakness and + other (Positive rhinorrhea, fall, sore throat. Negative head pain, abdominal pain, back pain. ); no syncope Treatments prior to arrival: none The patient is an 84 year old male presenting to the Emergency Department complaining of an episode of a fall starting 12 hours ago. The patient reports that he woke up in the middle of the night to get water, reached down to pick something up and fell onto the floor. He states that he rolled around onto the floor in an effort to get up. He explains that he crawled to a chair and was then able to get up with the help of the chair. He notes that he wanted to get water because he has been dehydrated and sick. He adds that he has had a cough for the past week. The patient reports that he has a sore throat. He states that he has rhinorrhea and is feeling generally weak. He notes that he follows with Dr. Kerr PCP. 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 The patient denies loss of consciousness, head pain, back pain and abdominal pain. Home Medications Home Medications Medication Instructions Recorded Confirmed Type cholecalciferol (vitamin D3) 25 1,000 units PO DAILY cap 05/16/19 11/03/19 History mcg (1,000 unit) capsule aspirin 81 mg tablet,delayed 81 mg PO DAILY 06/20/19 11/03/19 History release blood sugar diagnostic #10 ea 06/20/19 10/28/19 History lancets 33 gauge #100 ea 06/20/19 10/28/19 History nitroglycerin 0.4 mg sublingual 0.4 mg SL DIRECTED PRN tab 06/20/19 11/03/19 History tablet omega-3 fatty acids 1,200 mg PO DAILY cap 06/20/19 11/03/19 History pen needle, diabetic 32 gauge x #10 ea 06/20/19 10/28/19 History 5/32" insulin glargine 100 unit/mL (3 0 units SQ HS ml 07/05/19 11/03/19 History mL) subcutaneous pen insulin lispro 100) 100 unit/mL 0 unit SQ DIRECTED ml 07/05/19 11/03/19 History subcutaneous pen metoprolol succinate 25 mg PO QAM 07/31/19 11/03/19 History apixaban 5 mg tablet 5 mg PO BID #180 tab 08/01/19 11/03/19 Rx lisinopril 10 mg tablet 10 mg PO DAILY #90 tab 08/29/19 11/03/19 Rx Dexcom G6 Mounter Hand #1 ea NS 09/05/19 10/28/19 Rx Dexcom G6 Sensor #3 ea NS 09/05/19 10/28/19 Rx Dexcom G6 Transmitter #1 ea NS 09/05/19 10/28/19 Rx atorvastatin 40 mg tablet 40 mg PO HS #90 tab 09/21/19 11/03/19 Rx naproxen sodium [Aleve] 220 mg PO UD 11/03/19 11/03/19 History Allergies Allergy/AdvReac Type Severity Reaction Status Date / Time Sulfa (Sulfonamide Allergy Unknown UNKNOWN BY Verified 11/03/19 12:02 Antibiotics) PATIENT Past Med/Surg History Medical History Abnormal electrocardiogram 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 Calculus of ureter (06/07/12) Central retinal vein occlusion Chronic prostatitis Chronic rhinitis Coronary atherosclerosis of [place] coronary vessel (06/07/12) Cough Dermatitis 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, insulin dependent Diabetic retinopathy Dupuytrens contracture Dysesthesia Elevated PSA Enlarged prostate with lower urinary tract symptoms (LUTS) Former smoker Hematospermia Hyperlipidemia Hypertension Impaired sensation Laryngopharyngeal reflux Leukopenia Microalbuminuria due to type 2 diabetes mellitus Microscopic hematuria Mild aortic regurgitation Mild aortic stenosis Mild mitral regurgitation Myocardial infarction (06/07/12) Nephrolithiasis Nontoxic multinodular goiter Other and unspecified hyperlipidemia (06/07/12) Paroxysmal atrial fibrillation PND (post-nasal drip) Sepsis (06/07/12) Septicemia due to Gram-negative organism, unspecified (06/07/12) Vitamin D deficiency Surgical History S/P drug eluting coronary stent placement Family History Brother Coronary heart disease Father Angina pectoris Carcinoma of pancreas Mother Congestive heart failure Unknown Diabetes Heart disease Breast cancer Hypertension Social History Preferred Language: Serbian Communication Ability: Effective 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 and A total of 10 systems reviewed and were otherwise negative Physical Exam Vital Signs Vital Signs - 24 hr 11/03/19 11:16 11/03/19 11:38 Temperature 98.2 F Temperature Source Oral Pulse Rate 73 Respiratory Rate 18 Respiratory Effort / Characteristics Non-Labored Respiratory Depth Normal Blood Pressure 129/70 Blood Pressure Mean 89 Blood Pressure Position Lying Pulse Oximetry 95 95 Oxygen Delivery Method Room Air Room Air Sepsis Recent Fever Within 48 Hours No Sepsis Action Taken by Nursing No Action Required GENERAL: Awake, alert, well-appearing, in no acute distress HENT: Normocephalic, atraumatic. Oropharynx unremarkable. EYES: Normal conjunctiva. Sclera non-icteric. NECK: Supple. No nuchal rigidity. FROM. No JVD. RESPIRATORY: Clear to auscultation. CARDIAC: Regular rate, normal rhythm. Extremities warm and well perfused. Pulses equal. ABDOMEN: Soft, non-distended. No tenderness to palpation. No rebound or guarding. No masses. RECTAL: Deferred. MUSCULOSKELETAL: Chest examination reveals no tenderness. The back is symmetrical on inspection without obvious abnormality. There is no CVA tenderness to palpation. No joint edema. LOWER EXTREMITIES: Calves are equal size bilaterally and non-tender. No edema. No discoloration. NEURO: Normal sensorium. No sensory or motor deficits noted. SKIN: No rash or jaundice noted. Course Course 1205: The patient was evaluated in room C10, and a complete history and physical examination were performed. 1300: I discussed the patients case with Dr. Merna INFANTE hospitalist. She will evaluate the patient for further management. 1325: I updated the patient and his family at this time. Administered Medications Discontinued Medications Acetaminophen (Tylenol) 650 mg PO Q4H PRN PRN Reason: Pain or Fever Stop: 12/03/19 15:51 Last Admin: 11/03/19 22:36 Dose: 650 mg Documented by: [id number] Apixaban (Eliquis) 5 mg PO BID SILAS Stop: 12/03/19 20:59 Last Admin: 11/05/19 08:39 Dose: 5 mg Documented by: [id number] Admin: 11/04/19 21:17 Dose: 5 mg Documented by: [id number] Admin: 11/04/19 09:00 Dose: 5 mg Documented by: [id number] Admin: 11/03/19 21:02 Dose: 5 mg Documented by: [id number] Aspirin (Ecotrin Ectab) 81 mg PO DAILY SILAS Stop: 12/04/19 08:59 Last Admin: 11/05/19 08:40 Dose: 81 mg Documented by: [id number] Admin: 11/04/19 09:00 Dose: 81 mg Documented by: [id number] Atorvastatin Calcium (Lipitor) 40 mg PO HS SILAS Stop: 12/03/19 20:59 Last Admin: 11/03/19 21:05 Dose: 40 mg Documented by: [id number] Fish Oil (Othello-3 (Purified Fish Oil)) 1 gm PO DAILY SILAS Stop: 12/04/19 08:59 Last Admin: 11/05/19 08:40 Dose: 1 gm Documented by: [id number] Admin: 11/04/19 09:00 Dose: 1 gm Documented by: [id number] Sodium Chloride (Nss) 500 mls @ 999 mls/hr IV .Q31M SILAS Stop: 11/03/19 12:45 Last Infusion: 11/03/19 13:17 Dose: 0 mls/hr Documented by: [id number] Admin: 11/03/19 12:43 Dose: 999 mls/hr Documented by: [id number] Sodium Chloride (Nss 1000ml) 1,000 mls @ 999 mls/hr IV .Q1H1M ONE Stop: 11/03/19 14:04 Last Infusion: 11/03/19 14:18 Dose: 0 mls/hr Documented by: [id number] Admin: 11/03/19 13:17 Dose: 999 mls/hr Documented by: [id number] Sodium Chloride (Nss 1000ml) 1,000 mls @ 80 mls/hr IV .[id number] SILAS Stop: 12/03/19 16:29 Last Infusion: 11/05/19 11:21 Dose: 0 mls/hr Documented by: [id number] Infusion: 11/05/19 08:36 Dose: 0 mls/hr Documented by: [id number] Admin: 11/05/19 04:55 Dose: 80 mls/hr Documented by: [id number] Infusion: 11/05/19 04:48 Dose: 80 mls/hr Documented by: [id number] Admin: 11/04/19 16:18 Dose: 80 mls/hr Documented by: [id number] Infusion: 11/04/19 16:02 Dose: 80 mls/hr Documented by: [id number] Admin: 11/04/19 03:32 Dose: 80 mls/hr Documented by: [id number] Infusion: 11/04/19 03:32 Dose: 80 mls/hr Documented by: [id number] Admin: 11/03/19 16:08 Dose: 80 mls/hr Documented by: [id number] Potassium Chloride 40 meq/ (Sodium Chloride) 1,020 mls @ 125 mls/hr IV .Q8H10M SILAS Stop: 11/05/19 15:24 Last Infusion: 11/05/19 11:21 Dose: 0 mls/hr Documented by: [id number] Admin: 11/05/19 08:36 Dose: 125 mls/hr Documented by: [id number] Insulin Aspart (Novolog Flexpen) 0 units SC ACHS SILAS Stop: 12/03/19 16:59 Last Admin: 11/05/19 12:52 Dose: 9 units Documented by: [id number] Cosigned by: [id number] Admin: 11/05/19 08:39 Dose: 2 units Documented by: [id number] Cosigned by: [id number] Admin: 11/04/19 21:18 Dose: 4 units Documented by: [id number] Cosigned by: [id number] Admin: 11/04/19 17:46 Dose: 5 units Documented by: [id number] Cosigned by: [id number] Admin: 11/04/19 12:38 Dose: 5 units Documented by: [id number] Cosigned by: [id number] Admin: 11/04/19 08:59 Dose: 4 units Documented by: [id number] Cosigned by: [id number] Admin: 11/03/19 21:04 Dose: Not Given Documented by: [id number] Cosigned by: [id number] Admin: 11/03/19 17:34 Dose: Not Given Documented by: [id number] Cosigned by: [id number] Insulin Aspart (Novolog Flexpen) 0 units SC TODAY@0000,0400 [facility] Stop: 11/04/19 04:01 Last Admin: 11/04/19 03:47 Dose: Not Given Documented by: [id number] Cosigned by: [id number] Admin: 11/04/19 00:18 Dose: Not Given Documented by: [id number] Cosigned by: [id number] Insulin Glargine (Lantus Solostar Pen) 24 units SC ONE Stop: 11/03/19 21:01 Last Admin: 11/03/19 21:03 Dose: 24 units Documented by: [id number] Cosigned by: [id number] Insulin Glargine (Lantus Solostar Pen) 0 units SC [facility]; Protocol Stop: 12/04/19 20:59 Last Admin: 11/04/19 21:17 Dose: 24 units Documented by: [id number] Cosigned by: [id number] Insulin Human Regular (Novolin R) 20 units SC NOW STA Stop: 11/03/19 12:47 Last Admin: 11/03/19 13:13 Dose: Not Given Documented by: [id number] Insulin Human Regular (Novolin R U-100 Per Unit) Confirm Administered Dose 20 units .ROUTE .STK-MED ONE Stop: 11/03/19 13:08 Last Admin: 11/03/19 13:12 Dose: 20 units Documented by: [id number] Cosigned by: [id number] Lisinopril (Zestril) 10 mg PO DAILY [facility] Stop: 12/04/19 08:59 Last Admin: 11/05/19 08:40 Dose: 10 mg Documented by: [id number] Admin: 11/04/19 09:00 Dose: 10 mg Documented by: [id number] Metoprolol Succinate (Toprol Xl) 25 mg PO QAM [facility] Stop: 12/04/19 08:59 Last Admin: 11/05/19 08:40 Dose: 25 mg Documented by: [id number] Admin: 11/04/19 09:00 Dose: 25 mg Documented by: [id number] Potassium Chloride (Klor-Con M20) 40 meq PO NOW STA Stop: 11/03/19 16:22 Last Admin: 11/03/19 17:26 Dose: 40 meq Documented by: [id number] Potassium Chloride (Klor-Con M20) 20 meq PO NOW STA Stop: 11/04/19 13:59 Last Admin: 11/04/19 16:18 Dose: 20 meq Documented by: [id number] Potassium Chloride (Klor-Con M20) 40 meq PO NOW ONE Stop: 11/05/19 11:31 Last Admin: 11/05/19 11:23 Dose: 40 meq Documented by: [id number] Vitamin D (Vitamin D3) 1,000 units PO DAILY SILAS Stop: 12/04/19 08:59 Last Admin: 11/05/19 08:40 Dose: 1,000 units Documented by: [id number] Admin: 11/04/19 09:00 Dose: 1,000 units Documented by: [id number] Medical Decision Making Differential Diagnosis Differential Diagnosis includes but is not limited to dehydration, stroke, anemia, hypoglycemia, hyponatremia, hypernatremia, urinary tract infection, pneu monia, bronchitis, sepsis, gastroenteritis, additional abdominal pathology, metabolic abnormalities and infections. Medical Records Attestation: I reviewed the patient's medical records. Home Medications Current Medication List: was personally reviewed by me Laboratory Data Attestation: I reviewed the patient's lab results. Result diagrams: 11/05/19 05:14 11/05/19 05:14 Lab Results 11/03/19 11/03/19 11/03/19 Range/Units 11:49 11:49 11:54 WBC 6.61 (4.8-10.8) K/uL RBC 4.01 L (4.7-6.1) M/uL Hgb 13.5 L (14.0-18.0) g/dL Hct 38.9 L (42-52) % MCV 97.0 (80-100) fL MCH 33.7 (25-34) pg MCHC 34.7 (32-36) g/dL RDW Std Deviation 47.4 H (36.4-46.3) fL RDW Coeff of Anaid 13.4 (11.5-14.5) % Plt Count 115 L (130-400) K/uL MPV 9.9 (7.4-10.4) fL Immature Gran % (Auto) 0.3 % Neut % (Auto) 83.5 % Lymph % (Auto) 6.8 % Curry % (Auto) 9.2 % Eos % (Auto) 0.0 % Baso % (Auto) 0.2 % Immature Gran # (Auto) 0.02 (0.00-0.02) K/uL Neut # (Auto) 5.52 (1.4-6.5) K/uL Lymph # (Auto) 0.45 L (1.2-3.4) K/uL Curry # (Auto) 0.61 H (0.11-0.59) K/uL Eos # (Auto) 0.00 (0-0.5) K/uL Baso # (Auto) 0.01 (0-0.2) K/uL Sodium 133 L (136-145) mmol/L Potassium 3.7 (3.5-5.1) mmol/L Chloride 101 (98-107) mmol/L Carbon Dioxide 26 (21-32) mmol/L Anion Gap 6.0 (3-11) BUN 24 H (7-18) mg/dl Creatinine 1.32 (0.6-1.4) mg/dl Est Cr Clr Drug Dosing 47.0 ml/min Est GFR ( Amer) 57.0 Est GFR (Non-Af Amer) 49.2 BUN/Creatinine Ratio 18.5 (10-20) Glucose 347 H* (70-99) mg/dl POC Glucose 332 H* (70-99) Calcium 8.8 (8.5-10.1) mg/dl Total Bilirubin 1.5 H (0.2-1) mg/dl AST 85 H (15-37) U/L ALT 45 (12-78) U/L Alkaline Phosphatase 87 (45-117) U/L Total Creatine Kinase 4383 H (39-308) U/L Troponin I 0.136 H* (0-0.045) ng/ml Total Protein 6.8 (6.4-8.2) gm/dl Albumin 3.7 (3.4-5.0) gm/dl Globulin 3.1 (2.5-4.0) gm/dl Albumin/Globulin Ratio 1.2 (0.9-2) Beta-Hydroxybutyric Acd 3.60 H (0.2-2.81) mg/dl TSH 0.674 (0.300-4.500) uIu/ml Influenza Type A (PCR) (Neg) Influenza Type B (PCR) (Neg) 11/03/19 11/03/19 Range/Units 12:34 14:31 WBC (4.8-10.8) K/uL RBC (4.7-6.1) M/uL Hgb (14.0-18.0) g/dL Hct (42-52) % MCV (80-100) fL MCH (25-34) pg MCHC (32-36) g/dL RDW Std Deviation (36.4-46.3) fL RDW Coeff of Anaid (11.5-14.5) % Plt Count (130-400) K/uL MPV (7.4-10.4) fL Immature Gran % (Auto) % Neut % (Auto) % Lymph % (Auto) % Curry % (Auto) % Eos % (Auto) % Baso % (Auto) % Immature Gran # (Auto) (0.00-0.02) K/uL Neut # (Auto) (1.4-6.5) K/uL Lymph # (Auto) (1.2-3.4) K/uL [place] # (Auto) (0.11-0.59) K/uL Eos # (Auto) (0-0.5) K/uL Baso # (Auto) (0-0.2) K/uL Sodium (136-145) mmol/L Potassium (3.5-5.1) mmol/L Chloride (98-107) mmol/L Carbon Dioxide (21-32) mmol/L Anion Gap (3-11) BUN (7-18) mg/dl Creatinine (0.6-1.4) mg/dl Est Cr Clr Drug Dosing ml/min Est GFR ( Amer) Est GFR (Non-Af Amer) BUN/Creatinine Ratio (10-20) Glucose (70-99) mg/dl POC Glucose 217 H (70-99) Calcium (8.5-10.1) mg/dl Total Bilirubin (0.2-1) mg/dl AST (15-37) U/L ALT (12-78) U/L Alkaline Phosphatase (45-117) U/L Total Creatine Kinase (39-308) U/L Troponin I (0-0.045) ng/ml Total Protein (6.4-8.2) gm/dl Albumin (3.4-5.0) gm/dl Globulin (2.5-4.0) gm/dl Albumin/Globulin Ratio (0.9-2) Beta-Hydroxybutyric Acd (0.2-2.81) mg/dl TSH (0.300-4.500) uIu/ml Influenza Type A (PCR) Neg for Influ A (Neg) Influenza Type B (PCR) Neg for Influ B (Neg) Imaging Data Radiologist's Impression: Radiology results as stated below per my review and the radiologist's interpretation: XR chest 1V portable HISTORY: weakness COMPARISON: Chest 07/31/2019. FINDINGS: The cardiac silhouette remains mildly enlarged. No new focal lung consolidations to suggest pneumonia. No evidence for pulmonary edema. No pleural effusions. No pneumothorax. IMPRESSION: Stable mild cardiomegaly. ACT 112: Negative or not required by law. Electronically signed by: Tyrone Sagastume M.D. 11/03/2019 12:48 PM ECG Data Attestation: I personally reviewed and interpreted this ECG as follows: Indication: + weakness Rate (beats per minute): 71 Rhythm: + sinus rhythm ECG Intervals/blocks: + First degree AV block and + Left bundle branch block ECG [place]: + Left axis deviation ECG Findings: + Other (QT-c 515.) Comparison ECG Date: from (07/06/17) Change: no significant change Blood Pressure Blood Pressure Findings: Elevated blood pressure Blood Pressure Disposition: further management by hospitalist MDM Narrative This is an 84-year-old male who presents emergency department complaining of generalized weakness. The patient CK was found to be grossly elevated. For this reason he was started on fluids. His potassium was repleted here in the emergency department. I did discuss the case with the hospitalist service who did agree to admit the patient. Patient are in agreement with the treatment plan. Impression & Plan Rhabdomyolysis, Pancytopenia, Weakness Discharge Plan Visit Data *Final* Discharge Date/Time: 11/03/19 15:44 Chief Complaint: Illness Stated Complaint: bad cold, dehydrated ED Provider: Bruno Sargent Discharge Problem: Rhabdomyolysis, Pancytopenia, Weakness Patient Disposition: Admitted As Inpatient Condition: Good Discharge Instructions Interventions: ED Discharge Assessment Last Done: 11/03/19 15:44 Discharge Problem: Rhabdomyolysis Qualifiers: Rhabdomyolysis type: non-traumatic Qualified Code(s): M62.82 - Rhabdomyolysis The scribe's documentation has been prepared under my direction and personally reviewed by me in its entirety. I confirm that the note above accurately reflects all work, treatment, procedures, and medical decision making performed by me.
[2019-11-05] MEDS ORDERED: POTASSIUM CHLORIDE 40 MEQ in SODIUM CHLORIDE 0.9% 1000ML 1,000 ML IV SCH (07:15)
[2019-11-05] MEDS: APIXABAN 5 MG TABLET PO SCH (08:39)
[2019-11-05] MEDS: INSULIN ASPART 100 UNITS/ML 3 ML PEN SC SCH ×2 (08:39→12:52)
[2019-11-05] MEDS: lisinopriL 10 MG TAB PO SCH (08:40)
[2019-11-05] MEDS: CHOLECALCIFEROL 1,000 UNITS TAB PO SCH (08:40)
[2019-11-05] MEDS: ASPIRIN 81 MG ECTAB PO SCH (08:40)
[2019-11-05] MEDS: OMEGA-3 (PURIFIED FISH OIL) 1 GM CAP PO SCH (08:40)
[2019-11-05] MEDS: METOPROLOL SUCC 25MG EXT REL TAB PO SCH (08:40)
--- NOTE | 2019-11-05 10:48 | Hospitalist Progress Note ---
Date of Service November 05, 2019 Results & Data Vital Signs (Past 12 Hours) Vital Signs Temp Pulse Resp BP Pulse Ox 11/05/19 07:29 36.8 C 61 20 156/67 H 94 11/05/19 04:25 37.2 C 67 19 159/76 H 94 11/04/19 23:21 36.9 C 64 18 158/76 H 93
[2019-11-05] MEDS ORDERED: POTASSIUM CHLORIDE 20 MEQ TABCR PO ONE (11:30)
--- NOTE | 2019-11-05 13:48 | Discharge Summary ---
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 Patient denies fall or injuring any part of his body. Patient lives with his girlfriend. Patient states that he has body aches all over, and that is why he came to the emergency room. Patient denies fever, chills, chest pain, shortness of breath, abdominal pain, frequency, urgency. Labs are reviewed: WBC 6.61, hemoglobin 13.5, initial glucose 332 , hematocrit 38.9, platelets 115, initial troponin 0.136, second troponin 0.112. TSH 0.674. Creatinine kinase 4383. Chest x-ray stable mild cardiomegaly. Decision was made to admit patient for elevated troponin and rhabdomyolysis to [facility] on telemetry. Admission Exam Per Admitting Provider Constitutional: WD/WN, vitals as above well developed Eyes: PERRL, conjunctivae normal, anicteric sclerae ENMT: external ear and nose normal, oropharynx normal Neck: trachea midline, no thyromegaly Respiratory: normal respiratory effort, lungs clear to auscultation Cardiovascular: Heart Sounds: normal S1, normal S2 and + murmur Vessels: dorsalis pedis pulses present Gastrointestinal (Abdomen): normal bowel sounds, soft, nontender, no hepatosplenomegaly Musculoskeletal: Patient has multiple bruising and soreness all over his body. Skin: + turgor decreased and + pallor Neurologic: patellar DTR's 2+ bilat, sensation intact Psychiatric: A+Ox3, euthymic affect Lymphatic: no cervical or axillary lymphadenopathy Principal Diagnosis Rhabdomyolosis Discharge Exam Constitutional WD/WN, vitals as above Eyes PERRL, conjunctivae normal, anicteric sclerae ENMT external ear and nose normal, oropharynx normal Neck trachea midline, no thyromegaly Respiratory normal respiratory effort, lungs clear to auscultation no respiratory distress and does not use accessory muscles Cardiovascular Rate/Rhythm: regular rate and regular rhythm Heart Sounds: + murmur Vessels: no carotid bruit Extremities: no edema Gastrointestinal (Abdomen) normal bowel sounds, soft, nontender, no hepatosplenomegaly Skin no rashes, warm and dry Psychiatric A+Ox3, euthymic affect Orientation: cooperative Discharge Data Allergies Allergy/AdvReac Type Severity Reaction Status Date / Time Sulfa (Sulfonamide Allergy Unknown UNKNOWN BY Verified 11/03/19 12:02 Antibiotics) PATIENT Consultations 11/03/19 13:04 ED Decision to Admit Stat 11/03/19 15:52 Consult Cardiology Routine 11/03/19 21:16 Consult Cardiology Routine Hospital Course (1) Rhabdomyolysis: Pt is 84M with hx of CAD s/p LAD stent in 1999, paroxysmal atrial fibrillation, HTN, HLD, T2DM, hx of falls, and BPH presenting to hospital after weakness leading to prolonged stay on floor for a couple of hours x1 day ago, was worked up for rhabdomyolysis and new abnormal EKG findings. Weakness/metabolic encephalopathy - Initially noted weakness upon admission that improved throughout patients stay. Also noted on admission was slight confusion by patient. - Patient had a U/A on 11/04 Turbid appearance, trace protein, +1 Glu, +2 Ketones, +2 Blood and Negative Nitrites - UTI was deemed unlikely. - Had fever night of admission. No further fever. No leukocytosis. Blood culture negative. - Patient was on Telemetry, no arrhythmias were noted. Patient did go into atrial flutter at rate 70-80 on 11/05/19 - has known history of it. - Given IVF. - Cardiology recommended outpatient loop recorder to look for possible arrhythmia contributing to these weakness spells. - Patient, upon improvement of weakness and mental status, discharged home with home health services and home PT. Possible Traumatic Rhabdomyolysis - Patient acknowledged being on atorvastatin 40mg for a couple of years. Has had episodes of muscle weakness in the past. - Home Atorvastatin was held. - Admission CK 4383, down to 2163 on 11/05/19. - Patient was on IV fluids during stay. - Recommend that patient have further lab work with his PCP or Tool Designer Apprentice to ensure CK returns to normal and to continue holding Atorvastatin. - CK elevation likely from being on the floor. New first degree AV block with LBBB - Mild troponin elevation was noted on admission, possibly secondary to demand ischemia. - Patient denied any dyspnea at rest and exertion, chest pain, fatigue, orthopnea, or palpitations. - CXR 11/03 Stable mild cardiomegaly - EKG 11/03 (x3) Sinus rhythm with 1st degree AV block, left axis deviation, LBBB - ECHO 11/04 Normal LV size and systolic function, EJ 55%, no regional wall motion abnormalities, septal motion consistent with bundle-branch block -EF reduced from previous echo 09/09/19 at 65-70% - Consulted cardiology, recommended patient either have a 30 day holter monitor or loop recorder in the outpatient setting. Episode of fever - On night of admission pt was febrile with peak temperature of 39.3. - No leukocytosis and no obvious signs of infection were determined. - Patient remained afebrile after the initial incident. - Patient's Blood cultures were negative. T2DM, insulin-dependent - Admission HbA1C 7.9. - Pt reported that he struggles with diet and that he eats sugary foods - Lantus and Novolog, sliding scale, DM diet were ordered for management while inpatient. - Continued home regiment upon discharge CAD s/p LAD stent (1999), HTN, paroxysmal atrial fibrillation - continued home medicine - ASA 81mg, nitroglycerin 0.4mg, metoprolol succinate 25mg, lisinopril 10mg - Followed by counter caser () - last appointment in July where apixaban increased from 2.5mg to 5.0mg BID - Patient was placed on Telemetry and was noted to go into Atrial Flutter with rate in the 70's on 11/05/19. Patient denied SOB or chest pain at that time. - Patient follow up with Dr. Yao outpatient upon discharge. HLD - Held home atorvastatin due to rhabdomyolysis. - Patient to continue holding atorvastatin in the outpatient setting until CK returns to normal. BPH - Not taking any medication - Previous PSA of 4.25 in 2018 - Followed by urologist - has future appointment scheduled already Previous R fracture Ribs - Patient had a Mechanical fall in July - T11 posterior rib fracture - CXR 11/03/19 showed No rib fracture - Patient denies any rib pain currently FEN/GI: heart healthy and DM Dispo: Discharge home with home health services and home/outpatient PT Code: Full DVTPX: Continue Apixaban 5mg BID (2) Abnormal electrocardiogram: (3) Weakness: (4) Diabetes mellitus type 2, insulin dependent: (5) Presence of stent in LAD coronary artery: (6) Benign prostatic hyperplasia: (7) Hyperlipidemia: (8) Arteriosclerotic heart disease: (9) Hypertension: Total Time Total Time Spent Total Time Spent (In Minutes): see attending attestation Discharge Plan Discharge Items Patient Disposition: Home - Home Health Services Reason For Visit: RHABDOMYELISIS Discharge Diagnosis: Rhabdomyolysis and Weakness possibly secondary to arrhythmia Condition on Discharge: Good Activity: Per Instructions section Non-emergency contact: Primary Care Provider and Tool Designer Apprentice Call non-emergency contact if: your symptoms worsen Follow-up/Referrals: Kd Bryant MD [Primary Care Provider] - Diet: Regular Addtl Attending Provider Instructions: Mr. Quach, Jorge were seen and evaluated at [facility] from the dates of 11/03/19 to 11/05/19. Please see below for a short summary of your stay and instructions: Weakness, possibly secondary to dehydration or arrhythmia -You had noted weakness as being the main cause of your inability to raise from the floor prior to your admission. -Brain imaging was normal, ruling out concern for a stroke -You did have an Elevated Creatinine Kinase level (measurement of muscle breakdown) which can be expected with Rhabdomyolysis from you laying on the ground for several hours. -Dr. Taylor our Tool Designer Apprentice feels that this may have occurred due to an arrhythmia (irregular heart beat) that lasted longer than usual. He recommended that you possibly have another 30 day Holter Monitor or a Loop Recording device implanted to determine if your heart is beating odd when you have events of weakness. -We also recommend that you STOP your statin until your CK levels return to normal. -We recommend that you follow up with your PCP or Tool Designer Apprentice Dr. Yao within the next 1-2 weeks to have labs drawn to ensure that your CK levels have decreased appropriately before beginning your Atorvastatin again. -In some cases, Atorvastatin can cause muscle pains and break down, however this is unlikely in your situation since you had been on it for over 2-3 years now. -Physical therapy also recommends that you undergo 2 weeks of either home PT or outpatient PT to progress with a lower extremity strengthening home program. Rhabdomyolysis -This is known as muscle breakdown and can occur in situations such as yours where you were immobile for several hours. -You were treated with continuous Intravenous Fluids and your CK level (see above) improved as such. -We also held your Atorvastatin as that may have been a contributor, but is more unlikely since you have been on it for several years. Episode of fever - You had one overnight fever that peaked at 39.3. - There were no obvious signs of infection as a cause of this fever spike including blood cultures. - We believe it may have only been secondary to a stress reaction. - You were afebrile the remainder of your stay. Pending Studies at Discharge: No Stand-Alone Forms: My [facility], Smoking Cessation Medications and DC Order Prescriptions: Continued lisinopril 10 mg tablet 10 mg PO DAILY Qty: 90 RF: 3 (DME) Dexcom G6 Rn Dialysis misc See Dose Instructions .ROUTE .MEDSUPPLY Qty: 1 RF: 0 (DME) Dexcom G6 Sensor device See Dose Instructions .ROUTE .MEDSUPPLY Qty: 3 RF: 11 (DME) Dexcom G6 Transmitter device See Dose Instructions .ROUTE .MEDSUPPLY Qty: 1 RF: 3 atorvastatin 40 mg tablet 40 mg PO HS Qty: 90 RF: 3 apixaban 5 mg tablet 5 mg PO BID Qty: 180 RF: 3 cholecalciferol (vitamin D3) 1,000 unit capsule 1,000 units PO DAILY RF: 0 nitroglycerin 0.4 mg tablet, sublingual 0.4 mg SL DIRECTED PRN (Reason: Chest Pain) RF: 0 omega-3 fatty acids capsule 1,200 mg PO DAILY RF: 0 (DME) OneTouch Verio strip See Dose Instructions .ROUTE .MEDSUPPLY Qty: 10 RF: 0 (DME) lancets [OneTouch Delica Lancets] 33 gauge misc See Dose Instructions .ROUTE .MEDSUPPLY Qty: 100 RF: 0 (DME) pen needle, diabetic [BD Ultra-Fine Ros Pen Needle] 32 gauge x 5/32" needle See Dose Instructions .ROUTE .MEDSUPPLY Qty: 10 RF: 0 aspirin [Adult Low Dose Aspirin] 81 mg tablet,delayed release (DR/EC) 81 mg PO DAILY RF: 0 insulin lispro [Humalog KwikPen Insulin] 100 unit/mL insulin pen 0 unit SQ DIRECTED RF: 0 Lantus Solostar U-100 Insulin 100 unit/mL (3 mL) insulin pen 0 units SQ HS RF: 0 metoprolol succinate 25 mg tablet extended release 24 hr 25 mg PO QAM RF: 0 naproxen sodium [Aleve] 220 mg Tablet 220 mg PO UD RF: 0 Discharge Orders: Discharge Order (Routine); Ordered 11/05/19 Ordered By: Gennaro Ryan Admission Data Admit Date/Time: 11/03/19 15:21 Attending Provider: Kecia Nowak Admit Provider: Lily Ernandez Primary Care Provider: Kd Bryant Other Providers: Lily Ernandez ; Haroldo Taylor Other Interventions: Discharge Summary Assessment (RN) Last Done: 11/05/19 15:14 DC Date/Time DO NOT enter until pt leaves facility: 11/05/19 16:00 Supervising Physician Co-Signing Physician Notes Resident Physician Supervision Note: I independently interviewed and examined the patient and verified the reynolds history and physical, reviewed labs and image studies, discussed the case with the resident Dr. Ryan and agree with the findings and care plan. Time spent in discharge 35 min Resident Activity Tracking Resident Involvement: Resident Care Provided Care Provided: Adult Hospital Medicine
== END 2019-11-05 16:00 | disposition home health service (06) | DRG 564 ==
LOC: ED 11:14 → 2N 15:21 → SUATTDRO 15:21 → 2N 15:44

== ENCOUNTER 2021-02-27 14:53 | Observation (INO) ==
--- NOTE | 2021-02-27 17:11 | Emergency Department Note ---
Impression & Plan Closed rib fracture, Acute hyperglycemia, Acute hyponatremia ED Provider Note NAME: JANAE SOW AGE: 85 SEX: M : 1935 ARRIVES VIA: Walk-In INFORMANT: Patient ED PROVIDER(S): Fausto Simon DO CHIEF COMPLAINT: Fell down steps HPI: Patient is a 85-year-old gentleman on [facility] who presents the ER following tripping and falling down 3-4 steps. He is complaining of left rib pain. He has a mild headache. Rib pain is about a 5 out of 10. He does not want any pain. Is worse with movement twisting turning bending and breathing. He denies any belly pain or any other extremity pain. He admits to abrasions on his right arm and left arm. He did the same thing back in October. He was not dizzy or lightheaded prior to this he had no chest pain or shortness of breath prior to this. No complaints prior to the fall which he notes was secondary to tripping. ROS: See above HPI for pertinent positives & negatives. A total of 10 systems reviewed and were otherwise negative. PAST MEDICAL HISTORY:See Below PAST SURGICAL HISTORY:See Below FAMILY HISTORY:See Below SOCIAL HISTORY:See Below HOME MEDICATIONS:See Below ALLERGIES:See Below VITALS:See Below PHYSICAL EXAMINATION: GENERAL: alert, disheveled, mild distress with taking breath HEAD: normal cephalic, atraumatic EYE EXAM: normal conjunctiva, PERRL and EOM's grossly intact OROPHARYNX: no exudate, no erythema, lips, buccal mucosa, and tongue normal and mucous membranes are moist NECK: supple, no nuchal rigidity, no adenopathy, non-tender CHEST: stable to compression anteriorly and posteriorly LUNGS: clear to auscultation. Normal chest wall mechanics HEART: no murmurs, S1 normal and S2 normal ABDOMEN: abdomen soft, non-tender, normo-active bowel sounds, no masses, no rebound or guarding. PELVIS: stable to compression anteriorly and posteriorly BACK: Back is symmetrical on inspection and there is no deformity, no midline tenderness, no CVA tenderness. UPPER EXTREMITIES: full active and passive range of motion of all joints without tenderness to palpation. Abrasion over right forearm with a contusion and a small abrasion about 1 cm x 1 cm over the left dorsal medial forearm LOWER EXTREMITIES: full active and passive range of motion of all joints without tenderness to palpation NEURO EXAM: Normal sensorium, cranial nerves II-XII grossly intact, normal speech, no gross weakness of arms, no gross weakness of legs. GCS: 15. MEDICAL DECISION MAKING: [Provider summary] you will lecture on that patient is an 85-year-old male who presents the ER who presents ER following mechanical fall. He fell and hit his ribs. He is complaining of left chest wall pain. IV was demonstrated was obtained. Labs show no significant leukocytosis or anemia. INR unremarkable. BMP with mild hyponatremia. BUN slightly elevated 21. Glucose was elevated at 423. He was given IV fluids and insulin. It trended down to 238. LFTs bilirubin was unremarkable. UA was negative. Covid was negative. CT head chest and cervical spine showed 4 rib fractures. He had significant pain with any movement. He was given IV narcotics. He was updated bedside discussed with the hospitalist for further evaluation. Triage Nursing notes reviewed. Limited review of prior medical records performed Vital Signs: reviewed and remarkable for no significant abnormalities Differential diagnosis: Differential diagnoses include major intracranial, cervical, spinal, thoracic, abdominal, pelvic and neurologic injury. Fracture, contusion, sprain, strain, laceration, abrasions included as well. ER treatment provided: See below Diagnostics interpreted by me: ECG: Sinus rhythm rate 60 Left axis Left bundle branch block QTC 460 Cardiac Monitoring: An order was placed for continuous cardiac monitoring. The monitor shows a rate of 61 with sinus rhythm. Laboratory studies: As stated above and show below. Imaging studies: Imaging as discussed above Consultation(s): Discussed the hospitalist for further evaluation Procedures: none Critical Care: None Past Med/Surg History Medical History (Updated 02/27/21 @ 23:07 by Fausto Simon DO) Abnormal electrocardiogram Arteriosclerotic heart disease Benign prostatic hyperplasia Benign prostatic hyperplasia with urinary obstruction Calculus of ureter (06/07/12) Central retinal vein occlusion CHI (closed head injury) Chronic anticoagulation Chronic prostatitis Chronic rhinitis Coronary atherosclerosis of makah coronary vessel (06/07/12) Diabetes mellitus type 2 with neurological manifestations Diabetic retinopathy Dupuytrens contracture Dysesthesia Elevated PSA Enlarged prostate with lower urinary tract symptoms (LUTS) Facial abrasion Fall from slip, trip, or stumble Former smoker Hematospermia Hyperlipidemia Hypertension Impaired sensation Laryngopharyngeal reflux Left shoulder strain Leukopenia Microalbuminuria due to type 2 diabetes mellitus Microscopic hematuria Mild aortic regurgitation Mild aortic stenosis Mild mitral regurgitation Myocardial infarction (06/07/12) Nephrolithiasis Nontoxic multinodular goiter Other and unspecified hyperlipidemia (06/07/12) Pancytopenia (~2000) PND (post-nasal drip) Rhabdomyolysis Right rib fracture Sepsis (06/07/12) Septicemia due to Gram-negative organism, unspecified (06/07/12) Vitamin D deficiency Weakness Surgical History History of arthroscopy of knee History of cataract surgery History of colonoscopy History of cystoscopy History of tonsillectomy S/P drug eluting coronary stent placement Status post Mohs surgery Family History Brother Coronary heart disease Father Angina pectoris Carcinoma of pancreas Myocardial infarction Mother Congestive heart failure Breast cancer Unknown Diabetes Heart disease Hypertension Daughter Breast cancer Denies family history of Ovarian cancer Prostate cancer Colorectal cancer Social History Smoking Status: Never smoker Tobacco Type: Cigarettes Second Hand Exposure: No; Hx Alcohol Use: No Hx Substance Use: No Preferred Language: Mohawk Communication Ability: Effective Visual Impairment: Limited Hearing Ability: Normal Mail Messenger Required: No Beliefs That Will Affect Care: None marital status: / Current Living Situation: Significant Other current occupational status: retired How many Children do You have: 3 Feels Safe at Home: Yes Childhood Exposure to Second-Hand Smoke: No caffeine: Yes Dental Care, Regularly: Yes Physical Activity Frequency: 1-2 Times per Week Seatbelt Use: always Sunscreen Use: Yes Assistive Devices: None Allergies Allergies Allergy/AdvReac Type Severity Reaction Status Date / Time Sulfa (Sulfonamide Allergy Unknown UNKNOWN BY Verified 02/27/21 18:02 Antibiotics) PATIENT Home Meds Home Medications Medication Instructions Recorded Confirmed cholecalciferol (vitamin D3) 25 1,000 units PO QAM cap 05/16/19 02/27/21 mcg (1,000 unit) capsule aspirin 81 mg tablet,delayed 81 mg PO QAM 06/20/19 02/27/21 release nitroglycerin 0.4 mg sublingual 0.4 mg SL DIRECTED PRN tab 06/20/19 02/27/21 tablet ascorbate calcium (vitamin C) 500 500 mg PO QAM 03/28/20 02/27/21 mg tablet vitamin B complex 1 cap PO QAM 04/05/20 02/27/21 pen needle, diabetic 32 gauge x ea 05/31/20 02/12/21" omega 8-lqr-suj-fish oil [Fish Oil] 1 cap PO QAM 09/30/20 02/27/21 omeprazole 20 mg PO QAM 09/30/20 02/27/21 rosuvastatin 40 mg PO QAM 09/30/20 02/27/21 insulin degludec [Tresiba 26 unit SUBCUT QAM 02/27/21 02/27/21 FlexTouch U-100] Previous Rx's Medication Instructions Recorded donepezil 10 mg tablet 10 mg PO QAM #90 tab 10/26/20 apixaban 2.5 mg tablet 2.5 mg PO BID #180 tab 11/19/20 lisinopril 10 mg tablet 10 mg PO QAM #90 tab 01/01/21 OneTouch Verio test strips #300 ea NS 01/07/21 lancets 33 gauge #100 ea 01/07/21 metoprolol succinate 25 mg 25 mg PO QAM #90 tab 02/05/21 tablet,extended release 24 hr Results & Data (ED) Vital Signs Vital Signs - 24 hr 02/27/21 15:08 02/27/21 17:57 Temperature 36.9 C Temperature Source Temporal Artery Scan Pulse Rate 74 Pulse Rate [Right Finger] 88 Respiratory Rate 18 18 Respiratory Effort / Characteristics Non-Labored Respiratory Depth Normal Normal Blood Pressure [Right Arm] 182/105 H Blood Pressure Mean [Right Arm] 130 Pulse Oximetry 95 95 Oxygen Delivery Method Room Air Room Air Sepsis Recent Fever Within 48 Hours No Sepsis New/Unexplained Change in Mental Status N/A Sepsis Action Taken by Nursing No Action Required Laboratory Data Result diagrams: 02/27/21 17:40 02/27/21 19:27 Lab Results 02/27/21 02/27/21 02/27/21 Range/Units 17:28 17:40 17:40 WBC 6.03 (4.8-10.8) K/uL RBC 4.23 L (4.7-6.1) M/uL Hgb 14.4 (14.0-18.0) g/dL POC Hgb (14.0-18.0) g/dl Hct 40.0 L (42-52) % POC Hct (42-52) % MCV 94.6 (80-100) fL MCH 34.0 (25-34) pg MCHC 36.0 (32-36) g/dL RDW Std Deviation 45.8 (36.4-46.3) fL RDW Coeff of Anaid 13.2 (11.5-14.5) % Plt Count 115 L (130-400) K/uL MPV 10.8 H (7.4-10.4) fL Immature Gran % (Auto) 0.2 % Neut % (Auto) 77.8 % Lymph % (Auto) 13.8 % Mayes % (Auto) 7.5 % Eos % (Auto) 0.5 % Baso % (Auto) 0.2 % Neut # (Auto) 4.70 (1.4-6.5) K/uL Lymph # (Auto) 0.83 L (1.2-3.4) K/uL Mayes # (Auto) 0.45 (0.11-0.59) K/uL Eos # (Auto) 0.03 (0-0.5) K/uL Baso # (Auto) 0.01 (0-0.2) K/uL Immature Gran # (Auto) 0.01 (0.00-0.02) K/uL PT 9.9 (9.0-12.0) Seconds INR 1.0 (0.9-1.1) POC Sodium (135-144) mmol/L Sodium (136-145) mmol/L POC Potassium (3.3-5.0) mmol/L Potassium (3.5-5.1) mmol/L POC Chloride (101-112) mmol/L Chloride (98-107) mmol/L Carbon Dioxide (21-32) mmol/L POC Total CO2 (24-31) mmol/L Anion Gap (3-11) POC Anion Gap (16-25) mmol/L POC BUN (7-18) mg/dl BUN (7-18) mg/dl Creatinine (0.6-1.4) mg/dl POC Creatinine (0.6-1.3) mg/dl Est Cr Clr Drug Dosing ml/min Est GFR ( Amer) Est GFR (Non-Af Amer) BUN/Creatinine Ratio (10-20) Glucose (70-99) mg/dl POC Glucose (70-99) mg/dl POC Glucose (other) (70-99) mg/dl Calcium (8.5-10.1) mg/dl POC Ioniz Calcium Jose Rafael (1.12-1.32) mmol/l Total Bilirubin (0.2-1) mg/dl AST (15-37) U/L ALT (12-78) U/L Alkaline Phosphatase (45-117) U/L Total Protein (6.4-8.2) gm/dl Albumin (3.4-5.0) gm/dl Globulin (2.5-4.0) gm/dl Albumin/Globulin Ratio (0.9-2) Beta-Hydroxybutyric Acd (0.2-2.81) mg/dl Urine Color Yellow Urine Appearance Clear (Clear) Urine pH 5.0 (4.5-7.5) Ur Specific [place] 1.036 H (1.000-1.030) Urine Protein Trace H (Negative) Urine Glucose (UA) 3+ H (Negative) Urine Ketones Negative (Negative) Urine Blood Negative (Negative) Urine Nitrite Negative (Negative) Urine Bilirubin Negative (Negative) Urine Urobilinogen Negative (Negative) Ur Leukocyte Esterase Negative (Negative) Urine WBC (Auto) 1-5 (0-5) /hpf Urine RBC (Auto) 0-4 (0-4) /hpf U Hyaline Cast (Auto) 0 (0-5) /lpf U Epithel Cells (Auto) >30 H (0-5) /lpf Urine Bacteria (Auto) Negative (Negative) COVID-19 Eval Order SARS-CoV-2 (PCR) (Negative) Influenza Type A (PCR) (Neg) Influenza Type B (PCR) (Neg) RSV (RT-PCR) (Neg) 02/27/21 02/27/21 02/27/21 Range/Units 17:40 17:50 19:27 WBC (4.8-10.8) K/uL RBC (4.7-6.1) M/uL Hgb (14.0-18.0) g/dL POC Hgb 14.6 (14.0-18.0) g/dl Hct (42-52) % POC Hct 43 (42-52) % MCV (80-100) fL MCH (25-34) pg MCHC (32-36) g/dL RDW Std Deviation (36.4-46.3) fL RDW Coeff of Anaid (11.5-14.5) % Plt Count (130-400) K/uL MPV (7.4-10.4) fL Immature Gran % (Auto) % Neut % (Auto) % Lymph % (Auto) % Mayes % (Auto) % Eos % (Auto) % Baso % (Auto) % Neut # (Auto) (1.4-6.5) K/uL Lymph # (Auto) (1.2-3.4) K/uL Mayes # (Auto) (0.11-0.59) K/uL Eos # (Auto) (0-0.5) K/uL Baso # (Auto) (0-0.2) K/uL Immature Gran # (Auto) (0.00-0.02) K/uL PT (9.0-12.0) Seconds INR (0.9-1.1) POC Sodium 135 (135-144) mmol/L Sodium 134 L (136-145) mmol/L POC Potassium 4.5 (3.3-5.0) mmol/L Potassium 3.7 (3.5-5.1) mmol/L POC Chloride 99 L (101-112) mmol/L Chloride 102 (98-107) mmol/L Carbon Dioxide 27 (21-32) mmol/L POC Total CO2 29 (24-31) mmol/L Anion Gap 5.0 (3-11) POC Anion Gap 12.0 L (16-25) mmol/L POC BUN 27 H (7-18) mg/dl BUN 21 H (7-18) mg/dl Creatinine 0.97 (0.6-1.4) mg/dl POC Creatinine 0.8 (0.6-1.3) mg/dl Est Cr Clr Drug Dosing 61.4 ml/min Est GFR ( Amer) 82.2 Est GFR (Non-Af Amer) 70.9 BUN/Creatinine Ratio 21.7 H (10-20) Glucose 423 H* (70-99) mg/dl POC Glucose (70-99) mg/dl POC Glucose (other) 421 H* (70-99) mg/dl Calcium 9.4 (8.5-10.1) mg/dl POC Ioniz Calcium Jose Rafael 1.20 (1.12-1.32) mmol/l Total Bilirubin 0.8 (0.2-1) mg/dl AST 15 (15-37) U/L ALT 35 (12-78) U/L Alkaline Phosphatase 166 H (45-117) U/L Total Protein 7.3 (6.4-8.2) gm/dl Albumin 4.3 (3.4-5.0) gm/dl Globulin 3.0 (2.5-4.0) gm/dl Albumin/Globulin Ratio 1.4 (0.9-2) Beta-Hydroxybutyric Acd 1.11 (0.2-2.81) mg/dl Urine Color Urine Appearance (Clear) Urine pH (4.5-7.5) Ur Specific [place] (1.000-1.030) Urine Protein (Negative) Urine Glucose (UA) (Negative) Urine Ketones (Negative) Urine Blood (Negative) Urine Nitrite (Negative) Urine Bilirubin (Negative) Urine Urobilinogen (Negative) Ur Leukocyte Esterase (Negative) Urine WBC (Auto) (0-5) /hpf Urine RBC (Auto) (0-4) /hpf U Hyaline Cast (Auto) (0-5) /lpf U Epithel Cells (Auto) (0-5) /lpf Urine Bacteria (Auto) (Negative) COVID-19 Eval Order SARS-CoV-2 (PCR) (Negative) Influenza Type A (PCR) (Neg) Influenza Type B (PCR) (Neg) RSV (RT-PCR) (Neg) 02/27/21 02/27/21 02/27/21 Range/Units 19:28 Unknown Unknown WBC (4.8-10.8) K/uL RBC (4.7-6.1) M/uL Hgb (14.0-18.0) g/dL POC Hgb (14.0-18.0) g/dl Hct (42-52) % POC Hct (42-52) % MCV (80-100) fL MCH (25-34) pg MCHC (32-36) g/dL RDW Std Deviation (36.4-46.3) fL RDW Coeff of Anaid (11.5-14.5) % Plt Count (130-400) K/uL MPV (7.4-10.4) fL Immature Gran % (Auto) % Neut % (Auto) % Lymph % (Auto) % Mayes % (Auto) % Eos % (Auto) % Baso % (Auto) % Neut # (Auto) (1.4-6.5) K/uL Lymph # (Auto) (1.2-3.4) K/uL Mayes # (Auto) (0.11-0.59) K/uL Eos # (Auto) (0-0.5) K/uL Baso # (Auto) (0-0.2) K/uL Immature Gran # (Auto) (0.00-0.02) K/uL PT (9.0-12.0) Seconds INR (0.9-1.1) POC Sodium (135-144) mmol/L Sodium (136-145) mmol/L POC Potassium (3.3-5.0) mmol/L Potassium (3.5-5.1) mmol/L POC Chloride (101-112) mmol/L Chloride (98-107) mmol/L Carbon Dioxide (21-32) mmol/L POC Total CO2 (24-31) mmol/L Anion Gap (3-11) POC Anion Gap (16-25) mmol/L POC BUN (7-18) mg/dl BUN (7-18) mg/dl Creatinine (0.6-1.4) mg/dl POC Creatinine (0.6-1.3) mg/dl Est Cr Clr Drug Dosing ml/min Est GFR ( Amer) Est GFR (Non-Af Amer) BUN/Creatinine Ratio (10-20) Glucose (70-99) mg/dl POC Glucose 238 H (70-99) mg/dl POC Glucose (other) (70-99) mg/dl Calcium (8.5-10.1) mg/dl POC Ioniz Calcium Jose Rafael (1.12-1.32) mmol/l Total Bilirubin (0.2-1) mg/dl AST (15-37) U/L ALT (12-78) U/L Alkaline Phosphatase (45-117) U/L Total Protein (6.4-8.2) gm/dl Albumin (3.4-5.0) gm/dl Globulin (2.5-4.0) gm/dl Albumin/Globulin Ratio (0.9-2) Beta-Hydroxybutyric Acd (0.2-2.81) mg/dl Urine Color Urine Appearance (Clear) Urine pH (4.5-7.5) Ur Specific [place] (1.000-1.030) Urine Protein (Negative) Urine Glucose (UA) (Negative) Urine Ketones (Negative) Urine Blood (Negative) Urine Nitrite (Negative) Urine Bilirubin (Negative) Urine Urobilinogen (Negative) Ur Leukocyte Esterase (Negative) Urine WBC (Auto) (0-5) /hpf Urine RBC (Auto) (0-4) /hpf U Hyaline Cast (Auto) (0-5) /lpf U Epithel Cells (Auto) (0-5) /lpf Urine Bacteria (Auto) (Negative) COVID-19 Eval Order CovFluRsv at [facility] SARS-CoV-2 (PCR) NEGATIVE (Negative) Influenza Type A (PCR) Negative (Neg) Influenza Type B (PCR) Negative (Neg) RSV (RT-PCR) Negative (Neg) Administered Medications Discontinued Medications Sodium Chloride (Nss) 500 mls @ 999 mls/hr IV .Q31M ONE Stop: 02/27/21 18:58 Last Infusion: 02/27/21 19:18 Dose: 0 mls/hr Documented by: [id number] Admin: 02/27/21 18:47 Dose: 999 mls/hr Documented by: [id number] Insulin Human Regular (Novolin-R Insulin Per Unit Charge) 7 units IV NOW STA Stop: 02/27/21 17:53 Last Admin: 02/27/21 18:21 Dose: 7 units Documented by: [id number] Cosigned by: [id number] Ioversol (Ioversol 100ml) 88 ml IV ONCE ONE Stop: 02/27/21 18:05 Last Admin: 02/27/21 18:04 Dose: 88 ml Documented by: [id number] Morphine Sulfate (Morphine Sulfate 4 Mg/Ml 1 Ml Carp\\Vial) 4 mg IV NOW STA Stop: 02/27/21 19:12 Last Admin: 02/27/21 19:24 Dose: 4 mg Documented by: [id number] Ondansetron HCl (Ondansetron Inj 2 Mg/Ml 2 Ml Vial) 4 mg IV NOW STA Stop: 02/27/21 19:12 Last Admin: 02/27/21 19:24 Dose: 4 mg Documented by: [id number] Imaging Data Radiologist's Impression: Cervical Spine CT 02/27/21 17:06 CT OF THE CERVICAL SPINE WITHOUT CONTRAST CLINICAL HISTORY: fall down steps on thinner COMPARISON STUDY: Cervical spine CT May 11, 2020. TECHNIQUE: Helical axial images of the cervical spine were obtained without IV contrast. Sagittal and coronal reconstructions were viewed. Automated exposure control was utilized for the study. A dose lowering technique was utilized adhering to the principles of ALARA. FINDINGS: Alignment of the cervical spine is anatomic. Vertebral body heights are maintained. No acute cervical spine fracture or subluxation is present. There is no prevertebral edema. Facet joints are intact. Moderate to severe multilevel degenerative changes are present. A 1.4 cm lucent focus with the left articulating facet of C3 is new since prior CT. However, this is probably degenerative. There is a adjacent facet arthritis. IMPRESSION: 1. No acute cervical spine fracture or subluxation. 2. 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 3. 1.4 cm lucent focus within the left articulating facet of C3. Although indeterminate, this is probably degenerative. ACT 112: Negative or not required by law. Electronically signed by: Óscar Stubbs M.D. 02/27/2021 6:[address] 02/27/21 17:06 CT OF THE CHEST WITH IV CONTRAST CLINICAL HISTORY: fall down steps on thinner COMPARISON STUDY: Chest radiograph September 30, 2020. TECHNIQUE: Following IV administration of 88 mL of Optiray-320, helical axial images of the chest were obtained. Sagittal and coronal reconstructions were viewed as well as maximal intensity projections on an independent 3-D workstation. Automated exposure control was utilized for the study. A dose lowering technique was utilized adhering to the principles of ALARA. CT DOSE: 1621.29 mGy.cm FINDINGS: There is no evidence for traumatic injury to the thoracic aorta. Ascending aorta is ectatic, measuring 4.2 cm in caliber. Note is made of moderate cardiomegaly with extensive coronary artery calcification. Central airways are patent. There is no pneumothorax or pulmonary contusion. There is trace left extrapleural fluid. Note is made of acute nondisplaced fractures of the posterior left seventh through 10th ribs. No acute thoracic spine fracture is present. Visualized portions of the upper abdomen demonstrate gallstones within the gallbladder. There are a few small left renal calculi that measure up to 4 mm. IMPRESSION: 1. Acute nondisplaced fractures of the left 7th through 10th ribs. No pneumothorax. 2. No evidence for traumatic injury to the thoracic aorta. 3. Moderate cardiomegaly and extensive coronary calcification. ACT 112: Negative or not required by law. Electronically signed by: Óscar Stubbs M.D. 02/27/2021 6:[address] 02/27/21 17:06 CT OF THE HEAD WITHOUT CONTRAST CLINICAL HISTORY: fall down steps on thinner COMPARISON STUDY: MRI of the brain July 05, 2020. Head CT May 11, 2020. TECHNIQUE: Helical axial images of the head were obtained without IV contrast. Automated exposure control was utilized for the study. A dose lowering technique was utilized adhering to the principles of ALARA. FINDINGS: No acute intracranial hemorrhage, midline shift or mass effect is present. White matter hypodensities are similar to prior exam and suggest small vessel disease. The ventricular system is unremarkable. The basal cisterns are patent. No extra-axial collections are present. There are no findings to suggest acute dural sinus thrombosis or acute territorial infarct. No significant calvarial abnormalities are present. Visualized portions of the sinuses and mastoid air cells are clear. IMPRESSION: 1. No acute intracranial findings. 2. No calvarial fracture. ACT 112: Negative or not required by law. Electronically signed by: Óscar Stubbs M.D. 02/27/2021 6:17 PM Discharge Plan Visit Data Chief Complaint: Fall Stated Complaint: FALL - RIB PAIN - HEAD PAIN ED Provider: Fausto Simon Discharge Problem: Closed rib fracture, Acute hyperglycemia, Acute hyponatremia Forms Stand Alone Forms: [facility] [employer] Prescriptions Prescriptions: No Action donepezil 10 mg tablet 10 mg PO QAM Qty: 90 RF: 3 Eliquis 2.5 mg tablet 2.5 mg PO BID Qty: 180 RF: 3 lisinopril 10 mg tablet 10 mg PO QAM Qty: 90 RF: 3 (DME) OneTouch Verio test strips Strip See Dose Instructions .ROUTE .MEDSUPPLY Qty: 300 RF: 3 metoprolol succinate 25 mg tablet extended release 24 hr 25 mg PO QAM Qty: 90 RF: 3 ascorbate calcium (vitamin C) 500 mg tablet 500 mg PO QAM RF: 0 vitamin B complex Capsule 1 cap PO QAM RF: 0 (DME) pen needle, diabetic [BD Ultra-Fine Ros Pen Needle] 32 gauge x 5/32" needle See Rx Instructions .ROUTE .MEDSUPPLY RF: 0 cholecalciferol (vitamin D3) 1,000 unit capsule 1,000 units PO QAM RF: 0 nitroglycerin 0.4 mg tablet, sublingual 0.4 mg SL DIRECTED PRN (Reason: Chest Pain) RF: 0 aspirin [Adult Low Dose Aspirin] 81 mg tablet,delayed release (DR/EC) 81 mg PO QAM RF: 0 (DME) lancets [OneTouch Delica Lancets] 33 gauge misc See Dose Instructions .ROUTE .MEDSUPPLY Qty: 100 RF: 5 omega 7-dus-qhn-fish oil [Fish Oil] 1,200 (144-216) mg Capsule 1 cap PO QAM RF: 0 omeprazole 20 mg capsule,delayed release(DR/EC) 20 mg PO QAM RF: 0 rosuvastatin 40 mg tablet 40 mg PO QAM RF: 0 Tresiba FlexTouch U-100 100 unit/mL (3 mL) insulin pen 26 unit subcut QAM RF: 0 Discharge Problem: Closed rib fracture Qualifiers: Encounter type: initial encounter Rib fracture type: multiple ribs Laterality: left Qualified Code(s): S22.42XA - Multiple fractures of ribs, left side, initial encounter for closed fracture
[2021-02-27] MEDS ORDERED: NovoLIN-R INSULIN PER UNIT CHARGE IV STA (17:52)
[2021-02-27 18:02] LABS: iSTAT Creatinine 0.8 mg/dl (0.6-1.3); iSTAT Hemoglobin 14.6 g/dl (14.0-18.0); iSTAT Ionized Calcium 1.2 mmol/l (1.12-1.32); iSTAT Potassium 4.5 mmol/L (3.3-5.0)
[2021-02-27 18:04] LABS: Appearance Urine Clear (Clear); Bacteria Urine Automated Negative (Negative); Bilirubin Urine Negative (Negative); Blood Urine Negative (Negative); Cast Urine Automated 0 /lpf (0-5); Color Urine Yellow; Epithelial Cell Urine Auto >30 /lpf (0-5); Glucose Urine UA 3+ (Negative); Ketones Urine Negative (Negative); Leukocyte Esterase Urine Negative (Negative); Nitrite Urine Negative (Negative); Protein Urine Trace (Negative); RBC Urine Automated 0-4 /hpf (0-4); Specific Gravity Urine 1.036 (1.000-1.030); Urobilinogen Urine Negative (Negative)
[2021-02-27] MEDS ORDERED: OPTIRAY 320 100ml IV ONE (18:04)
[2021-02-27 18:09] LABS: Prothrombin Time 9.9 Seconds (9.0-12.0)
[2021-02-27 18:10] LABS: Basophils # (auto) 0.01 K/uL (0-0.2); Basophils % (auto) 0.2 %; Eosinophils # (auto) 0.03 K/uL (0-0.5); Eosinophils % (auto) 0.5 %; Hemoglobin 14.4 g/dL (14.0-18.0); Immature Granulocytes # (auto) 0.01 K/uL (0.00-0.02); Immature Granulocytes % (auto) 0.2 %; Lymphocytes # (auto) 0.83 K/uL (1.2-3.4); Lymphocytes % (auto) 13.8 %; Mean Corpuscular Volume 94.6 fL (80-100); Mean Platelet Volume 10.8 fL (7.4-10.4); Monocytes # (auto) 0.45 K/uL (0.11-0.59); Monocytes % (auto) 7.5 %; Neutrophils % (auto) 77.8 %; Platelet Count 115 K/uL (130-400); RDW Coefficient of Variation 13.2 % (11.5-14.5); RDW Standard Deviation 45.8 fL (36.4-46.3); Red Blood Count 4.23 M/uL (4.7-6.1); White Blood Count 6.03 K/uL (4.8-10.8)
--- NOTE | 2021-02-27 18:19 | CT Scan Report ---
CT OF THE HEAD WITHOUT CONTRAST CLINICAL HISTORY: fall down steps on thinner COMPARISON STUDY: MRI of the brain July 05, 2020. Head CT May 11, 2020. TECHNIQUE: Helical axial images of the head were obtained without IV contrast. Automated exposure con trol was utilized for the study. A dose lowering technique was utilized adhering to the principles o f ALARA. FINDINGS: No acute intracranial hemorrhage, midline shift or mass effect is present. White matter hyp odensities are similar to prior exam and suggest small vessel disease. The ventricular system is unre markable. The basal cisterns are patent. No extra-axial collections are present. There are no finding s to suggest acute dural sinus thrombosis or acute territorial infarct. No significant calvarial abno rmalities are present. Visualized portions of the sinuses and mastoid air cells are clear. IMPRESSION: 1. No acute intracranial findings. 2. No calvarial fracture. ACT 112: Negative or not required by law. Electronically signed by: Óscar Stubbs M.D. 02/27/2021 6:17 PM
[2021-02-27] MEDS ORDERED: SODIUM CHLORIDE 0.9% 500 ML IV ONE (18:28)
--- NOTE | 2021-02-27 18:28 | CT Scan Report ---
CT OF THE CERVICAL SPINE WITHOUT CONTRAST CLINICAL HISTORY: fall down steps on thinner COMPARISON STUDY: Cervical spine CT May 11, 2020. TECHNIQUE: Helical axial images of the cervical spine were obtained without IV contrast. Sagittal a nd coronal reconstructions were viewed. Automated exposure control was utilized for the study. A do se lowering technique was utilized adhering to the principles of ALARA. FINDINGS: Alignment of the cervical spine is anatomic. Vertebral body heights are maintained. No acut e cervical spine fracture or subluxation is present. There is no prevertebral edema. Facet joints are intact. Moderate to severe multilevel degenerative changes are present. A 1.4 cm lucent focus with the left articulating facet of C3 is new since prior CT. However, this is probably degenerative. Ther e is a adjacent facet arthritis. IMPRESSION: 1. No acute cervical spine fracture or subluxation. 2. 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 3. 1.4 cm lucent focus within the left articulating facet of C3. Although indeterminate, this is prob ably degenerative. ACT 112: Negative or not required by law. Electronically signed by: Óscar Stubbs M.D. 02/27/2021 6:27 PM
--- NOTE | 2021-02-27 18:47 | CT Scan Report ---
CT OF THE CHEST WITH IV CONTRAST CLINICAL HISTORY: fall down steps on thinner COMPARISON STUDY: Chest radiograph September 30, 2020. TECHNIQUE: Following IV administration of 88 mL of Optiray-320, helical axial images of the chest we re obtained. Sagittal and coronal reconstructions were viewed as well as maximal intensity projectio ns on an independent 3-D workstation. Automated exposure control was utilized for the study. A dose lowering technique was utilized adhering to the principles of ALARA. CT DOSE: 1621.29 mGy.cm FINDINGS: There is no evidence for traumatic injury to the thoracic aorta. Ascending aorta is ectati c, measuring 4.2 cm in caliber. Note is made of moderate cardiomegaly with extensive coronary artery calcification. Central airways are patent. There is no pneumothorax or pulmonary contusion. There is trace left extrapleural fluid. Note is made of acute nondisplaced fractures of the posterior left sev enth through 10th ribs. No acute thoracic spine fracture is present. Visualized portions of the upper abdomen demonstrate gallstones within the gallbladder. There are a few small left renal calculi that measure up to 4 mm. IMPRESSION: 1. Acute nondisplaced fractures of the left 7th through 10th ribs. No pneumothorax. 2. No evidence for traumatic injury to the thoracic aorta. 3. Moderate cardiomegaly and extensive coronary calcification. ACT 112: Negative or not required by law. Electronically signed by: Óscar Stubbs M.D. 02/27/2021 6:45 PM
[2021-02-27 18:48] LABS: Albumin Globulin Ratio 1.4 (0.9-2); Albumin Level 4.3 gm/dl (3.4-5.0); BUN Creatinine Ratio 21.7 (10-20); Bilirubin,Total 0.8 mg/dl (0.2-1); Calcium 9.4 mg/dl (8.5-10.1); Creatinine Clr Calc Pharmacy 61.4 ml/min; Est GFR (African American) 82.2; Est GFR (Non-African American) 70.9; Total Protein 7.3 gm/dl (6.4-8.2)
[2021-02-27] MEDS ORDERED: ONDANSETRON INJ 2 MG/ML 2 ML VIAL IV STA (19:11)
[2021-02-27] MEDS ORDERED: MoRPHine SULFATE 4 MG/ML 1 ML CARP\\VIAL IV STA (19:11)
[2021-02-27 19:47] LABS: Potassium 3.7 mmol/L (3.5-5.1)
[2021-02-27 19:53] LABS: Beta-Hydroxybutyrate 1.11 mg/dl (0.2-2.81)
[2021-02-27 20:53] LABS: Influenza A virus by PCR Negative (Neg); Influenza B virus by PCR Negative (Neg); RSV by PCR Negative (Neg); SARS CoV2 RNA(COVID-19) InHosp NEGATIVE (Negative)
--- NOTE | 2021-02-27 22:06 | History & Physical Report ---
Date of Service February 27, 2021 Assessment & Plan Admission and Anticipated Discharge Date Admission Date: 85 yo M w/ pMHx. of DM II (A1c 10.7), BPH, mild cognitive impairment, reflux, paroxysmal a. fib on Eliquis, CAD s/p stent to LAD, HTN, HLD, central retinal vein occlusion and aortic stenosis presents after what sounds to be a mechanical fall on the left rib and here for pain management and observation. Acute rib fracture L CT chest with finding of acute non-displaced 7-10 rib fracture on the left CT head with no acute intracranial finding saturating well on room air - admit med/surg - tele - Lidocaine patch during the day and Voltaren overnight - continue to monitor for neuro. symptoms and hgb given pt. on Eliquis CAD s/p stent to LAD, no chest pain follows with Dr. Yao EKG with 1'st degree AV block - continue home ASA and Statin Atrial fibrillation on Eliquis currently regular rhythm - continue Eliquis DM w/ last A1c 10.6, admission bsg 423 - sliding scale and home basal insulin - am A1c Cervical lesion CT cervical spine w/ 1.4 cm lucent focus - will need further outpatient evaluation HTN - continue home Metoprolol HLD - continue statin Reflux - continue home PPI DC planning given multiple falls and difficulty managing blood sugar prior to admission - PT/OT placed - d/c planning ordered DVT: Eliquis Code: full Diet: CC DM II History of Present Illness Chief Complaint: fall Primary Care Provider: Kd Bryant MD Terry Quach is here for a fall that occurred today. He was picking up trash and lost his balance on his deck stairs. He remembers before during and after the fall with no LOC and no dizziness. He did not have any chest pain, or shortness of breath. He did hit his head on the deck in the occipital region. He denies double vision but does have some left sided rib pain worse with deep breathing. Prior [place] in with stent to LAD. 4 year smoking history quit in after leaving the [employer]. no ETOH, no substance use. He sees Dr. Yao for cardiology and had an event monitor which shoed 1st degree AV block and one episode of atrial fibrillation. He had a fall in October with pain and a possible rib fracture on his left side. 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 Last A1C was 10.7 in 01/17. Has had lows of 55 on 02/08. There was concern on the prior diabetic and primary care visits if the patient was taking insulin correctly and if he was refrigerating the insulin. Allergies Allergy/AdvReac Type Severity Reaction Status Date / Time Sulfa (Sulfonamide Allergy Unknown UNKNOWN BY Verified 02/27/21 18:02 Antibiotics) PATIENT Home Medications Medication Instructions Recorded Confirmed Type cholecalciferol (vitamin D3) 25 1,000 units PO QAM cap 05/16/19 02/27/21 History mcg (1,000 unit) capsule aspirin 81 mg tablet,delayed 81 mg PO QAM 06/20/19 02/27/21 History release nitroglycerin 0.4 mg sublingual 0.4 mg SL DIRECTED PRN tab 06/20/19 02/27/21 History tablet ascorbate calcium (vitamin C) 500 500 mg PO QAM 03/28/20 02/27/21 History mg tablet vitamin B complex 1 cap PO QAM 04/05/20 02/27/21 History pen needle, diabetic 32 gauge x ea 05/31/20 02/12/21 History /" omega [id number]-[id number]-fish oil [Fish Oil] 1 cap PO QAM 09/30/20 02/27/21 History omeprazole 20 mg PO QAM 09/30/20 02/27/21 History rosuvastatin 40 mg PO QAM 09/30/20 02/27/21 History donepezil 10 mg tablet 10 mg PO QAM #90 tab 10/26/20 02/27/21 Rx apixaban 2.5 mg tablet 2.5 mg PO BID #180 tab 11/19/20 02/27/21 Rx lisinopril 10 mg tablet 10 mg PO QAM #90 tab 01/01/21 02/27/21 Rx OneTouch Verio test strips #300 ea NS 01/07/21 02/12/21 Rx lancets 33 gauge #100 ea 01/07/21 02/12/21 Rx metoprolol succinate 25 mg 25 mg PO QAM #90 tab 02/05/21 02/27/21 Rx tablet,extended release 24 hr Tresiba FlexTouch U-100 26 unit SUBCUT QAM 02/27/21 02/27/21 History acetaminophen 650 mg PO Q6 10 Days #80 tab 02/28/21 Rx diclofenac sodium [Voltaren] 2 g EXT HS 7 Days #50 g 02/28/21 Rx lidocaine 1 patch TRANSDERMAL QAM 15 Days 02/28/21 Rx #15 ea tramadol 50 mg PO Q4H PRN 14 Days #60 tab 02/28/21 Rx Past Med/Surg History Medical History (Updated 02/27/21 @ 23:07 by Fausto Simon DO) Abnormal electrocardiogram Arteriosclerotic heart disease Benign prostatic hyperplasia Benign prostatic hyperplasia with urinary obstruction Calculus of ureter (06/07/12) Central retinal vein occlusion CHI (closed head injury) Chronic anticoagulation Chronic prostatitis Chronic rhinitis Coronary atherosclerosis of [place] coronary vessel (06/07/12) Diabetes mellitus type 2 with neurological manifestations Diabetic retinopathy Dupuytrens contracture Dysesthesia Elevated PSA Enlarged prostate with lower urinary tract symptoms (LUTS) Facial abrasion Fall from slip, trip, or stumble Former smoker Hematospermia Hyperlipidemia Hypertension Impaired sensation Laryngopharyngeal reflux Left shoulder strain Leukopenia Microalbuminuria due to type 2 diabetes mellitus Microscopic hematuria Mild aortic regurgitation Mild aortic stenosis Mild mitral regurgitation Myocardial infarction (06/07/12) Nephrolithiasis Nontoxic multinodular goiter Other and unspecified hyperlipidemia (06/07/12) Pancytopenia (~2000) PND (post-nasal drip) Rhabdomyolysis Right rib fracture Sepsis (06/07/12) Septicemia due to Gram-negative organism, unspecified (06/07/12) Vitamin D deficiency Weakness Surgical History History of arthroscopy of knee History of cataract surgery History of colonoscopy History of cystoscopy History of tonsillectomy S/P drug eluting coronary stent placement Status post Mohs surgery Family History Brother Coronary heart disease Father Angina pectoris Carcinoma of pancreas Myocardial infarction Mother Congestive heart failure Breast cancer Unknown Diabetes Heart disease Hypertension Daughter Breast cancer Denies family history of Ovarian cancer Prostate cancer Colorectal cancer Social History Smoking Status: Never smoker Tobacco Type: Cigarettes Second Hand Exposure: No; Hx Alcohol Use: No Hx Substance Use: No Preferred Language: Serbian Communication Ability: Effective Visual Impairment: Limited Hearing Ability: Normal 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: No Beliefs That Will Affect Care: None marital status: / Current Living Situation: Other Current Living Situation Comment: Lives w/ girlfriend, Amber Huang current occupational status: retired How many Children do You have: 3 Feels Safe at Home: Yes Childhood Exposure to Second-Hand Smoke: No caffeine: Yes Dental Care, Regularly: Yes Physical Activity Frequency: 1-2 Times per Week Seatbelt Use: always Sunscreen Use: Yes Assistive Devices: Glasses Review of Systems Review of Systems: Constitutional: denies fevers, chills, vomiting, night sweats Head: denies LOC, headache, vision changes admits trauma and some confusion after the fall Neuro: denies syncope, presyncope, slurring of speech or focal weakness ENT: denies stuffiness, sore throat admits rhinorrhea Cardiac: denies chest pain, palpitations Pulm.: denies cough, shortness of breath, sputum production GI: denies diarrhea, constipation, abdominal pain : denies pain, urgency, admits frequency (relates to diabetes) Physical Exam Constitutional: WD/WN, vitals as above Eyes: PERRL, conjunctivae normal, anicteric sclerae ENMT: external ear and nose normal, oropharynx normal Neck: normal visual inspection Respiratory: normal respiratory effort, lungs clear to auscultation - non labored Cardiovascular: - regular rate, 1/6 systolic murmur appreciated with PMI at left upper sternal border Chest (Breasts): Additional Comments: - nTTP on the left - tender while taking a deep breath on the left mid-axillary line Gastrointestinal (Abdomen): normal bowel sounds, soft, nontender, no hepatosplenomegaly Skin: no rashes, warm and dry Neurologic: no focal motor deficits Results & Data Results & Data ([facility]) Vital Signs (Past 12 Hours) Vital Signs Temp Pulse Pulse Resp BP Pulse Ox 02/27/21 17:57 88 18 182/105 H 95 02/27/21 15:08 36.9 C 74 18 95 CBC Results Results Complete Blood Count Results: RBC 4.02 M/uL (4.7-6.1) L 02/28/21 WBC 4.69 K/uL (4.8-10.8) L 02/28/21 Hgb 13.2 g/dL (14.0-18.0) L 02/28/21 Hct 38.0 % (42-52) L 02/28/21 Plt Count 121 K/uL (130-400) L 02/28/21 Chemistry (BMP) Results BMP Results: Sodium 136 mmol/L (136-145) 02/28/21 Potassium 4.3 mmol/L (3.5-5.1) 02/28/21 Chloride 103 mmol/L (98-107) 02/28/21 BUN 15 mg/dl (7-18) 02/28/21 Creatinine 0.74 mg/dl (0.6-1.4) 02/28/21 Glucose 286 mg/dl (70-99) H 02/28/21 Code Status & VTE Plan VTE Prophylaxis Plan VTE Prophylaxis will be ordered: Yes Supervising Physician Co-Signing Physician Notes Attending addendum: I have physically seen this patient, have supervised the medical residents activities, and agree with the H&P unless as otherwise noted. Assessment and Plan: Multiple rib fractures status post fall- X-ray with fractures left seventh through 10th ribs. Place on lidocaine patch during the day, and Voltaren gel overnight Monitor for any potential splinting leading to secondary pneumonias CAD/history LAD stent/atrial fibrillation- The patient will be admitted to telemetry for serial cardiac enzymes, serial EKG's, cardiac rhythm monitoring and a 2-D echocardiogram with Dopplers. Continue aspirin, apixaban, metoprolol succinate and nitroglycerin sublingual as needed Hyperlipidemia- Continue rosuvastatin Diabetes mellitus- Placed in Accu-Cheks before meals and at bedtime with NovoLog coverage for scale Remaining orders and notations as noted Resident Activity Tracking Resident Involvement: Resident Care Provided Care Provided: Adult Hospital Medicine
[2021-02-28] MEDS ORDERED: GLUCAGON FOR INJ 1 MG VIAL SQ PRN (00:01)
[2021-02-28] MEDS ORDERED: GLUCOSE 10 TABS/TUBE PO PRN (00:01)
[2021-02-28] MEDS ORDERED: NITROGLYCERIN SL 0.4 MG/TAB TAB SL PRN (00:01)
[2021-02-28] MEDS ORDERED: ACETAMINOPHEN 325 MG TAB PO PRN (00:01)
[2021-02-28] MEDS ORDERED: POLYETHYLENE (MIRALAX) 17 GM PACK PO PRN (00:01)
[2021-02-28] MEDS ORDERED: DEXTROSE 50% 50 ML SYRINGE IV PRN (00:01)
[2021-02-28] MEDS ORDERED: DICLOFENAC SOD 1% GEL 100 GM TUBE EXT SCH (00:01)
[2021-02-28] MEDS ORDERED: GLUCOSE 40% GEL 15 GM TUBE PO PRN (00:01)
[2021-02-28] MEDS ORDERED: CARBOHYDRATES FOR HYPOGLYCEMIA PO PRN (00:01)
[2021-02-28 06:39] LABS: Basophils # (auto) 0.01 K/uL (0-0.2); Basophils % (auto) 0.2 %; Eosinophils # (auto) 0.07 K/uL (0-0.5); Eosinophils % (auto) 1.5 %; Hemoglobin 13.2 g/dL (14.0-18.0); Immature Granulocytes # (auto) 0.01 K/uL (0.00-0.02); Immature Granulocytes % (auto) 0.2 %; Lymphocytes # (auto) 0.91 K/uL (1.2-3.4); Lymphocytes % (auto) 19.4 %; Mean Corpuscular Hemoglobin 32.8 pg (25-34); Mean Corpuscular Hgb Conc 34.7 g/dL (32-36); Mean Corpuscular Volume 94.5 fL (80-100); Mean Platelet Volume 9.3 fL (7.4-10.4); Monocytes % (auto) 12.8 %; Neutrophils # (auto) 3.09 K/uL (1.4-6.5); Neutrophils % (auto) 65.9 %; Platelet Count 121 K/uL (130-400); RDW Coefficient of Variation 13.2 % (11.5-14.5); RDW Standard Deviation 45.7 fL (36.4-46.3); Red Blood Count 4.02 M/uL (4.7-6.1); White Blood Count 4.69 K/uL (4.8-10.8)
[2021-02-28 07:08] LABS: BUN Creatinine Ratio 19.8 (10-20); Calcium 9.2 mg/dl (8.5-10.1); Creatinine Clr Calc Pharmacy 79.6 ml/min; Est GFR (African American) 97.5; Est GFR (Non-African American) 84.1; Potassium 4.3 mmol/L (3.5-5.1)
[2021-02-28] MEDS: INSULIN ASPART 100 UNITS/ML 3 ML PEN SC SCH ×2 (08:15→12:18)
[2021-02-28 08:21] LABS: Estimated Average Glucose 243 mg/dl; Hemoglobin A1C 10.1 % (4.5-5.6)
[2021-02-28] MEDS ORDERED: DONEPEZIL HCL 10 MG TAB PO SCH (09:00)
[2021-02-28] MEDS ORDERED: lisinopril 10 MG TAB PO SCH (09:00)
[2021-02-28] MEDS ORDERED: ROSUVASTATIN CALCIUM 20 MG TAB PO SCH (09:00)
[2021-02-28] MEDS ORDERED: PANTOprazole 40 MG TAB PO SCH (09:00)
[2021-02-28] MEDS ORDERED: INSULIN GLARGINE SOLOSTAR 100 UNITS/ML 3 ML PEN SC SCH (09:00)
[2021-02-28] MEDS ORDERED: ASPIRIN 81 MG ECTAB PO SCH (09:00)
[2021-02-28] MEDS ORDERED: METOPROLOL SUCC 25MG EXT REL TAB PO SCH (09:00)
[2021-02-28] MEDS ORDERED: APIXABAN 2.5 MG TAB PO SCH (09:00)
[2021-02-28] MEDS ORDERED: LIDOCAINE 5% 1 PATCH TD SCH (09:00)
[2021-02-28] MEDS ORDERED: traMADol HCL 50 MG TABLET PO PRN (10:29)
[2021-02-28] MEDS ORDERED: ACETAMINOPHEN 325 MG TAB PO SCH (10:30)
--- NOTE | 2021-02-28 14:11 | Discharge Summary ---
Date of Service February 28, 2021 Admission HPI Per Admitting Provider Terry Quach is here for a fall that occurred today. He was picking up trash and lost his balance on his deck stairs. He remembers before during and after the fall with no LOC and no dizziness. He did not have any chest pain, or shortness of breath. He did hit his head on the deck in the occipital region. He denies double vision but does have some left sided rib pain worse with deep breathing. Prior [place] in with stent to LAD. 4 year smoking history quit in after leaving the [employer]. no ETOH, no substance use. He sees Dr. Yao for cardiology and had an event monitor which shoed 1st degree AV block and one epi sode of atrial fibrillation. He had a fall in October with pain and a possible rib fracture on his left side. 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 Last A1C was 10.7 in 01/17. Has had lows of 55 on 02/08. There was concern on the prior diabetic and primary care visits if the patient was taking insulin correctly and if he was refrigerating the insulin. Principal Diagnosis Mechanical fall with left sided rib fractures Discharge Exam Constitutional WD/WN, vitals as above Neck trachea midline, no thyromegaly Respiratory normal respiratory effort, lungs clear to auscultation Cardiovascular RRR, no murmur, no edema Chest (Breasts) Chest: normal inspection of chest (left ribs tender to palpation) Gastrointestinal (Abdomen) normal bowel sounds, soft, nontender, no hepatosplenomegaly Musculoskeletal no cyanosis or clubbing, extremities motor strength 5/5 Skin no rashes, warm and dry Neurologic patellar DTR's 2+ bilat, sensation intact and PERRL, EOMI, accommodation nl, no face palsy, no dysarthria Psychiatric A+Ox3, euthymic affect Lymphatic no cervical or axillary lymphadenopathy Discharge Data Allergies Allergy/AdvReac Type Severity Reaction Status Date / Time Sulfa (Sulfonamide Allergy Unknown UNKNOWN BY Verified 02/27/21 18:02 Antibiotics) PATIENT Consultations 02/27/21 19:12 ED Decision to Admit Stat Ordered Studies 02/27/21 17:06 CT cervical spine wo con Stat CT chest diagnostic w con Stat CT head/brain wo con Stat Hospital Course (1) Closed rib fracture: due to mechanical fall no loss of consciousness no other injuries on numerous x-rays and CTs pain well controlled, he was able to ambulate around the halls prescription provided for rolling walker discharge plan: lidoderm patch daily for 12 hours Voltaren gel 2gm applied at night Tylenol 650mg q6 scheduled for the next week Ultram 50mg PO q4 PRN for pain educated on the importance of taking deep breath, coughing if he needs to stay upright, ambulate want to avoid pneumonia (2) Acute hyperglycemia: quickly corrected with insulin regimen he knows how to manage insulin at home Total Time Total Time Spent Total Time Spent (In Minutes): 32 Discharge Plan Discharge Items Patient Disposition: Home - Self-Care Reason For Visit: FALL Discharge Diagnosis: Mechanical fall Left sided rib fracture Condition on Discharge: Good Goals: control pain, need to take deep breaths, cough use rolling walker as needed for balance Activity: Resume your previous activity Driving/Machine Use: No limitations Weightbearing: Full weightbearing Non-emergency contact: Primary Care Provider Call non-emergency contact if: you have any medication questions and your pain is not controlled Follow-up/Referrals: Kd Bryant MD [Primary Care Provider] - 03/07/21 2:00 pm (next week) Diet: Carb Consistent or DM2 Addtl Attending Provider Instructions: Medications: - LIDODERM PATCH: 5% patch, apply each morning at 9am and remove each evening at 9pm if this patch is not covered by insurance then you can purchase over the counter lidoderm patch, it is just a lower strength - VOLTAREN GEL: 2gm every evening, apply to left ribs where it hurts - TYLENOL: 650mg every 6 hours, take scheduled for the next week, then just take as needed for pain, this is a total dose of 2400mg a day and is safe - ULTRAM: 50mg every 4 hours as needed for pain, if you are not in pain then you do not need to take this Fall with left sided rib fractures no other injuries seen on imaging make sure you control your pain so that you can take a deep breath and cough main complication from rib fractures is pneumonia, this can be prevented by being upright, walking and taking deep breaths/coughing when needed use the above plan for pain control follow up with Dr. Bryant next week Pending Studies at Discharge: No Stand-Alone Forms: [employer], Smoking Cessation Medications and DC Order Prescriptions: New acetaminophen 325 mg Tablet 650 mg PO Q6 10 Days Qty: 80 RF: 0 diclofenac sodium [Voltaren] 1 % Gel 2 g EXT HS 7 Days Qty: 50 RF: 1 tramadol 50 mg Tablet 50 mg PO Q4H PRN (Reason: pain) 14 Days Qty: 60 RF: 0 lidocaine 5 % Adhesive Patch,Medicated 1 patch transdermal QAM 15 Days Qty: 15 RF: 0 Continued donepezil 10 mg tablet 10 mg PO QAM Qty: 90 RF: 3 Eliquis 2.5 mg tablet 2.5 mg PO BID Qty: 180 RF: 3 lisinopril 10 mg tablet 10 mg PO QAM Qty: 90 RF: 3 (DME) OneTouch Verio test strips Strip See Dose Instructions .ROUTE .MEDSUPPLY Qty: 300 RF: 3 metoprolol succinate 25 mg tablet extended release 24 hr 25 mg PO QAM Qty: 90 RF: 3 ascorbate calcium (vitamin C) 500 mg tablet 500 mg PO QAM RF: 0 vitamin B complex Capsule 1 cap PO QAM RF: 0 (DME) pen needle, diabetic [BD Ultra-Fine Ros Pen Needle] 32 gauge x 5/32" needle See Rx Instructions .ROUTE .MEDSUPPLY RF: 0 cholecalciferol (vitamin D3) 1,000 unit capsule 1,000 units PO QAM RF: 0 nitroglycerin 0.4 mg tablet, sublingual 0.4 mg SL DIRECTED PRN (Reason: Chest Pain) RF: 0 aspirin [Adult Low Dose Aspirin] 81 mg tablet,delayed release (DR/EC) 81 mg PO QAM RF: 0 (DME) lancets [OneTouch Delica Lancets] 33 gauge misc See Dose Instructions .ROUTE .MEDSUPPLY Qty: 100 RF: 5 omega 7-mur-xmm-fish oil [Fish Oil] 1,200 (144-216) mg Capsule 1 cap PO QAM RF: 0 omeprazole 20 mg capsule,delayed release(DR/EC) 20 mg PO QAM RF: 0 rosuvastatin 40 mg tablet 40 mg PO QAM RF: 0 Tresiba FlexTouch U-100 100 unit/mL (3 mL) insulin pen 26 unit subcut QAM RF: 0 Discharge Orders: Discharge Order (Routine); Ordered 02/28/21 Ordered By: Chuckie Burdick Admission Data Admit Date/Time: 02/27/21 21:48 Attending Provider: Chuckie Burdick Admit Provider: Oni Barbosa Primary Care Provider: Kd Bryant Other Providers: Paulo Stephenson Other Interventions: Discharge Summary Assessment (RN) Last Done: 02/28/21 14:17 Coding Level of Care Code 86063 OBS Care - Discharge Diagnoses Closed rib fracture S22.42XA Encounter type: initial encounter Laterality: left Rib fracture type: multiple ribs Acute hyperglycemia R73.9
--- NOTE | 2021-02-28 20:16 | Billing Data ---
Date of Service February 28, 2021 Coding Level of Care Code 65299 OBS Care - Level 3
--- NOTE | 2021-03-01 06:06 | Electrocardiogram Report ---
Test Reason : Blood Pressure : / mmHG Vent. Rate : 060 BPM Atrial Rate : 060 BPM P-R Int : 286 ms QRS Dur : 158 ms QT Int : 460 ms P-R-T Axes : 031 -47 075 degrees QTc Int : 460 ms Sinus rhythm with 1st degree A-V block Left axis deviation Left bundle branch block Abnormal ECG When compared with ECG of 05-NOV-2019 11:35, Sinus rhythm has replaced Atrial fibrillation Confirmed by Enoc Medina ([id number]) on 03/01/2021 6:06:43 AM Referred By: REFERRED SELF Confirmed By:Enoc Medina
== END 2021-02-28 15:28 | disposition home or self-care (01) ==
LOC: ED 14:53 → 2N 14:53 → SUATTDRO 21:48 → 2N 23:09

== ENCOUNTER 2021-03-01 20:44 | Observation (INO) ==
[2021-03-01 22:04] LABS: Basophils # (auto) 0.01 K/uL (0-0.2); Basophils % (auto) 0.2 %; Eosinophils # (auto) 0.05 K/uL (0-0.5); Eosinophils % (auto) 1.1 %; Hematocrit (blood only) 39.3 % (42-52); Hemoglobin 13.6 g/dL (14.0-18.0); Lymphocytes # (auto) 0.85 K/uL (1.2-3.4); Mean Corpuscular Hemoglobin 33.4 pg (25-34); Mean Corpuscular Hgb Conc 34.6 g/dL (32-36); Mean Corpuscular Volume 96.6 fL (80-100); Mean Platelet Volume 9.8 fL (7.4-10.4); Monocytes # (auto) 0.55 K/uL (0.11-0.59); Monocytes % (auto) 12.3 %; Neutrophils # (auto) 3.02 K/uL (1.4-6.5); Neutrophils % (auto) 67.4 %; Platelet Count 132 K/uL (130-400); RDW Coefficient of Variation 13.3 % (11.5-14.5); RDW Standard Deviation 46.2 fL (36.4-46.3); Red Blood Count 4.07 M/uL (4.7-6.1); White Blood Count 4.48 K/uL (4.8-10.8)
[2021-03-01 22:40] LABS: Alanine Aminotransferase 24 U/L (12-78); Albumin Globulin Ratio 1.3 (0.9-2); Albumin Level 3.8 gm/dl (3.4-5.0); Alkaline Phosphatase 125 U/L (45-117); Aspartate Aminotransferase 8 U/L (15-37); BUN Creatinine Ratio 21.3 (10-20); Bilirubin,Total 0.9 mg/dl (0.2-1); Blood Urea Nitrogen 29 mg/dl (7-18); Calcium 8.9 mg/dl (8.5-10.1); Carbon Dioxide 27 mmol/L (21-32); Chloride 101 mmol/L (98-107); Creatinine Clr Calc Pharmacy 43.2 ml/min; Est GFR (African American) 53.6; Est GFR (Non-African American) 46.3; Glucose 436 mg/dl (70-99); Potassium 4.6 mmol/L (3.5-5.1); Sodium 133 mmol/L (136-145); Total Protein 6.8 gm/dl (6.4-8.2); Troponin I < 0.015 ng/ml (0-0.045)
[2021-03-01] MEDS ORDERED: NovoLIN-R INSULIN PER UNIT CHARGE IV STA (22:52)
[2021-03-01] MEDS ORDERED: SODIUM CHLORIDE 0.9% 1000ML 1,000 ML IV STA (22:52)
[2021-03-01] MEDS ORDERED: SODIUM CHLORIDE 0.9% 1000ML 500 ML IV ONE (22:52)
[2021-03-01 22:54] LABS: Beta-Hydroxybutyrate 1.16 mg/dl (0.2-2.81)
--- NOTE | 2021-03-01 23:54 | Emergency Department Note ---
Impression & Plan Hyperglycemia, Cough, Acute confusion ED Provider Note INFORMANT: Patient ED PROVIDER(S): David Aguilar MD CHIEF COMPLAINT: Hyperglycemia PLAN: Disposition: Admitted Condition: Good Outpatient prescription management: none Referral: None MEDICAL DECISION MAKING: Patient presented with hyperglycemia. Family notes he is having significant difficulty managing his sugars over the last week. He also had a recent fall and had multiple rib fractures. The patient underwent CT imaging of his head due to the concerns of confusion. This was negative. He was hydrated. He was given IV insulin twice. His CBC was unremarkable. Chemistry panel did reveal hyperglycemia. LFTs were unremarkable. The patient's urinalysis revealed glucose but no signs of infection. Patient's ECG showed a sinus rhythm with left bundle branch block. CT imaging of his chest was performed in light of his cough and uncontrolled hyperglycemia. Redemonstration of his rib fractures were noted. The patient has no evidence of pneumonia. I had a long discussion with the patient's son and he raised significant concerns about the patient's ability to manage his blood sugar. He did raise concerns about the patient's advancing dementia. The patient is having difficulty getting around with the pain secondary to his rib fractures. I discussed further management in the hospital. Patient may require inpatient rehab. Consultation was made with Dr. Paulo Stephenson of the [facility] service. Patient was evaluated in the ER for further management. Triage Nursing notes reviewed and agree them. Additional history obtained from patient's son Vital Signs: reviewed and remarkable for no significant abnormalities Differential diagnosis: Infection, dehydration, metabolic abnormality, hypo/hyperglycemia, electrolyte disturbance, anemia, hypoxia, cardiac sources, intracerebral event, toxicologic, neurologic, as well as other pathologies. Diagnostics interpreted by me: ECG: Twelve-lead ECG reveals a sinus rhythm with first-degree block at 71 bpm. Left axis deviation. Little branch block. No criteria for ST elevation. No PVCs. Cardiac Monitoring: Cardiac monitoring ordered by me: The patient was placed on continuous cardiac monitoring and observed. It revealed a normal sinus rhythm at 65 beats per minute without ectopy or evidence of dysrhythmia. Imaging studies: Head CT: A noncontrast CT scan of the head was performed and was negative for tumor, fracture, intracranial hemorrhage, or other acute pathology. CT scan of the chest reveals no evidence of pneumonia. Redemonstration of rib f ractures noted. Atelectasis noted. Consultation(s): Hospitalist service HPI: The patient is a 85 year old male who presents to the Emergency Room with complaints of hyperglycemia. This started last week and is getting worse. Patient notes blood sugars slowly elevating and running near 400. The patient also notes the following associated symptoms, mild cough that started tonight as well as left-sided chest pain from recent fall and rib fractures. The patient has been using his morning insulin for relieving factors. Current pain is rated as 3/10. Patient denies having a sliding scale for additional glycemic control. Son noted to nursing that he was concerned that the patient seemed to be having difficulty managing his hyperglycemia and blood glucose at home. He seems somewhat confused. EMS noted that he was alert and oriented them but was very hyperglycemic. Pt denies LOC, headache, fevers, chills, diaphoresis, visual changes, neck pain, breathing difficulties, nausea, vomiting, abdominal pain, back pain, melena, hematochezia, urinary symptoms, numbness, weakness, lymphadenopathy, rash, or other complaints. ROS: See above HPI for pertinent positives & negatives. A total of 10 systems reviewed and were otherwise negative. PAST MEDICAL HISTORY:See Below , DM PAST SURGICAL HISTORY:See Below, FAMILY HISTORY:See Below SOCIAL HISTORY:See Below, retired HOME MEDICATIONS:See Below ALLERGIES:See Below VITALS:See Below PHYSICAL EXAMINATION: GENERAL: Awake, alert, well-appearing, in no distress HENT: Normocephalic, atraumatic. Oropharynx unremarkable. EYES: Normal conjunctiva. Sclera non-icteric. NECK: Inspection normal. Non-tender. Supple. No nuchal rigidity. FROM. No m asses. RESPIRATORY: Clear to auscultation. No wheezes. No rales. Normal respiratory effort. CARDIAC: Normal rate. Normal rhythm. No murmurs. No rubs. Extremities warm and well perfused. Pulses equal. No JVD. GI: Soft, non-distended. No tenderness to palpation. No rebound or guarding. No masses. RECTAL: Deferred. MUSCULOSKELETAL: Atraumatic. Chest examination reveals left rib tenderness. The back is symmetrical on inspection without obvious abnormality. There is no CVA tenderness to palpation. No joint edema. LOWER EXTREMITIES: Calves are equal size bilaterally and non-tender. No edema. No discoloration. NEURO: Normal sensorium. No sensory or motor deficits noted. SKIN: No rash or jaundice noted. David Aguilar MD Past Med/Surg History Medical History (Updated 03/01/21 @ 23:50 by David Aguilar MD) Abnormal electrocardiogram Acute hyperglycemia Acute hyponatremia Arteriosclerotic heart disease Benign prostatic hyperplasia Benign prostatic hyperplasia with urinary obstruction Calculus of ureter (06/07/12) Central retinal vein occlusion CHI (closed head injury) Chronic anticoagulation Chronic prostatitis Chronic rhinitis Coronary atherosclerosis of [place] coronary vessel (06/07/12) Diabetes mellitus type 2 with neurological manifestations Diabetic retinopathy Dupuytrens contracture Dysesthesia Elevated PSA Enlarged prostate with lower urinary tract symptoms (LUTS) Facial abrasion Fall from slip, trip, or stumble Former smoker Hematospermia Hyperlipidemia Hypertension Impaired sensation Laryngopharyngeal reflux Left shoulder strain Leukopenia Microalbuminuria due to type 2 diabetes mellitus Microscopic hematuria Mild aortic regurgitation Mild aortic stenosis Mild mitral regurgitation Myocardial infarction (06/07/12) Nephrolithiasis Nontoxic multinodular goiter Other and unspecified hyperlipidemia (06/07/12) Pancytopenia (~2000) PND (post-nasal drip) Rhabdomyolysis Right rib fracture Sepsis (06/07/12) Septicemia due to Gram-negative organism, unspecified (06/07/12) Vitamin D deficiency Weakness Surgical History History of arthroscopy of knee History of cataract surgery History of colonoscopy History of cystoscopy History of tonsillectomy S/P drug eluting coronary stent placement Status post Mohs surgery Family History Brother Coronary heart disease Father Angina pectoris Carcinoma of pancreas Myocardial infarction Mother Congestive heart failure Breast cancer Unknown Diabetes Heart disease Hypertension Daughter Breast cancer Denies family history of Ovarian cancer Prostate cancer Colorectal cancer Social History Smoking Status: Never smoker Tobacco Type: Cigarettes Second Hand Exposure: No; Hx Alcohol Use: No Hx Substance Use: No Preferred Language: Ukrainian Communication Ability: Effective Visual Impairment: Limited Hearing Ability: Normal 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 Beliefs That Will Affect Care: None marital status: / Current Living Situation: Other Current Living Situation Comment: Lives w/ girlfriend, Amber Huang current occupational status: retired How many Children do You have: 3 Feels Safe at Home: Yes Childhood Exposure to Second-Hand Smoke: No caffeine: Yes Dental Care, Regularly: Yes Physical Activity Frequency: 1-2 Times per Week Seatbelt Use: always Sunscreen Use: Yes Assistive Devices: Glasses Allergies Allergies Allergy/AdvReac Type Severity Reaction Status Date / Time Sulfa (Sulfonamide Allergy Unknown UNKNOWN BY Verified 03/02/21 00:09 Antibiotics) PATIENT Home Meds Home Medications Medication Instructions Recorded Confirmed cholecalciferol (vitamin D3) 25 1,000 units PO QAM cap 05/16/19 03/02/21 mcg (1,000 unit) capsule aspirin 81 mg tablet,delayed 81 mg PO QAM 06/20/19 03/02/21 release nitroglycerin 0.4 mg sublingual 0.4 mg SL DIRECTED PRN tab 06/20/19 03/02/21 tablet ascorbate calcium (vitamin C) 500 500 mg PO QAM 03/28/20 03/02/21 mg tablet vitamin B complex 1 cap PO QAM 04/05/20 03/02/21 pen needle, diabetic 32 gauge x ea 05/31/20 03/01/21" omega 6-put-aok-fish oil [Fish Oil] 1 cap PO QAM 09/30/20 03/02/21 omeprazole 20 mg PO QAM 09/30/20 03/02/21 rosuvastatin 40 mg PO QAM 09/30/20 03/02/21 acetaminophen 650 mg PO UD 03/02/21 03/02/21 Previous Rx's Medication Instructions Recorded donepezil 10 mg tablet 10 mg PO QAM #90 tab 10/26/20 apixaban 2.5 mg tablet 2.5 mg PO BID #180 tab 11/19/20 lisinopril 10 mg tablet 10 mg PO QAM #90 tab 01/01/21 OneTouch Verio test strips #300 ea NS 01/07/21 lancets 33 gauge #100 ea 01/07/21 metoprolol succinate 25 mg 25 mg PO QAM #90 tab 02/05/21 tablet,extended release 24 hr diclofenac sodium [Voltaren] 2 g EXT HS 7 Days #50 g 02/28/21 lidocaine 1 patch TRANSDERMAL QAM 15 Days 02/28/21 #15 ea tramadol 50 mg PO Q4H PRN 14 Days #60 tab 02/28/21 Tresiba FlexTouch U-100 100 26 unit SUBCUT QAM #30 ml NS 03/01/21 unit/mL (3 mL) subcutaneous pen Results & Data (ED) Vital Signs Vital Signs - 24 hr 03/01/21 20:48 03/01/21 21:00 03/01/21 21:30 Temperature 36.8 C Temperature Source Oral Pulse Rate 73 68 66 Pulse Rate from SpO2 Sensor Respiratory Rate 18 15 18 Blood Pressure 161/76 H 136/74 138/68 Blood Pressure Mean 104 94 91 Pulse Oximetry 95 95 94 Oxygen Delivery Method Room Air Sepsis Recent Fever Within 48 Hours No Sepsis New/Unexplained Change in Mental Status N/A Sepsis Action Taken by Nursing No Action Required 03/01/21 21:38 03/01/21 22:00 03/01/21 22:10 Temperature Temperature Source Pulse Rate 67 66 Pulse Rate from SpO2 Sensor 66 Respiratory Rate 19 20 Blood Pressure 143/78 H Blood Pressure Mean 99 Pulse Oximetry 94 95 96 Oxygen Delivery Method Room Air Room Air Sepsis Recent Fever Within 48 Hours Sepsis New/Unexplained Change in Mental Status Sepsis Action Taken by Nursing 03/01/21 22:34 03/01/21 22:40 03/01/21 22:50 Temperature Temperature Source Pulse Rate 73 70 71 Pulse Rate from SpO2 Sensor 74 69 69 Respiratory Rate 13 15 20 Blood Pressure Blood Pressure Mean Pulse Oximetry 96 96 96 Oxygen Delivery Method Sepsis Recent Fever Within 48 Hours Sepsis New/Unexplained Change in Mental Status Sepsis Action Taken by Nursing 03/01/21 23:00 03/01/21 23:01 03/01/21 23:10 Temperature Temperature Source Pulse Rate 65 68 66 Pulse Rate from SpO2 Sensor 65 69 66 Respiratory Rate 19 16 19 Blood Pressure 185/70 H Blood Pressure Mean 108 Pulse Oximetry 95 95 95 Oxygen Delivery Method Sepsis Recent Fever Within 48 Hours Sepsis New/Unexplained Change in Mental Status Sepsis Action Taken by Nursing 03/01/21 23:20 03/01/21 23:24 03/01/21 23:52 Temperature Temperature Source Pulse Rate 66 67 72 Pulse Rate from SpO2 Sensor 67 67 73 Respiratory Rate 12 14 18 Blood Pressure 185/70 H Blood Pressure Mean 108 Pulse Oximetry 95 95 95 Oxygen Delivery Method Sepsis Recent Fever Within 48 Hours Sepsis New/Unexplained Change in Mental Status Sepsis Action Taken by Nursing 03/02/21 00:00 03/02/21 00:01 03/02/21 00:10 Temperature Temperature Source Pulse Rate 69 72 67 Pulse Rate from SpO2 Sensor 69 71 67 Respiratory Rate 16 16 13 Blood Pressure 153/94 H Blood Pressure Mean 113 Pulse Oximetry 96 96 95 Oxygen Delivery Method Sepsis Recent Fever Within 48 Hours Sepsis New/Unexplained Change in Mental Status Sepsis Action Taken by Nursing 03/02/21 00:20 03/02/21 00:30 Temperature Temperature Source Pulse Rate 67 65 Pulse Rate from SpO2 Sensor 67 65 Respiratory Rate 18 18 Blood Pressure 141/72 H Blood Pressure Mean 95 Pulse Oximetry 95 95 Oxygen Delivery Method Sepsis Recent Fever Within 48 Hours Sepsis New/Unexplained Change in Mental Status Sepsis Action Taken by Nursing Laboratory Data Result diagrams: 03/01/21 21:52 03/01/21 21:52 Lab Results 03/01/21 03/01/21 03/01/21 Range/Units 20:49 20:50 21:52 WBC 4.48 L (4.8-10.8) K/uL RBC 4.07 L (4.7-6.1) M/uL Hgb 13.6 L (14.0-18.0) g/dL Hct 39.3 L (42-52) % MCV 96.6 (80-100) fL MCH 33.4 (25-34) pg MCHC 34.6 (32-36) g/dL RDW Std Deviation 46.2 (36.4-46.3) fL RDW Coeff of Anaid 13.3 (11.5-14.5) % Plt Count 132 (130-400) K/uL MPV 9.8 (7.4-10.4) fL Immature Gran % (Auto) 0.0 % Neut % (Auto) 67.4 % Lymph % (Auto) 19.0 % [place] % (Auto) 12.3 % Eos % (Auto) 1.1 % Baso % (Auto) 0.2 % Neut # (Auto) 3.02 (1.4-6.5) K/uL Lymph # (Auto) 0.85 L (1.2-3.4) K/uL [place] # (Auto) 0.55 (0.11-0.59) K/uL Eos # (Auto) 0.05 (0-0.5) K/uL Baso # (Auto) 0.01 (0-0.2) K/uL Immature Gran # (Auto) 0.00 (0.00-0.02) K/uL Sodium (136-145) mmol/L Potassium (3.5-5.1) mmol/L Chloride (98-107) mmol/L Carbon Dioxide (21-32) mmol/L Anion Gap (3-11) BUN (7-18) mg/dl Creatinine (0.6-1.4) mg/dl Est Cr Clr Drug Dosing ml/min Est GFR ( Amer) Est GFR (Non-Af Amer) BUN/Creatinine Ratio (10-20) Glucose (70-99) mg/dl POC Glucose 466 H* 478 H* (70-99) mg/dl Calcium (8.5-10.1) mg/dl Total Bilirubin (0.2-1) mg/dl AST (15-37) U/L ALT (12-78) U/L Alkaline Phosphatase (45-117) U/L Troponin I (0-0.045) ng/ml Total Protein (6.4-8.2) gm/dl Albumin (3.4-5.0) gm/dl Globulin (2.5-4.0) gm/dl Albumin/Globulin Ratio (0.9-2) Beta-Hydroxybutyric Acd (0.2-2.81) mg/dl TSH (0.300-4.500) uIu/ml Urine Color Urine Appearance (Clear) Urine pH (4.5-7.5) Ur Specific [place] (1.000-1.030) Urine Protein (Negative) Urine Glucose (UA) (Negative) Urine Ketones (Negative) Urine Blood (Negative) Urine Nitrite (Negative) Urine Bilirubin (Negative) Urine Urobilinogen (Negative) Ur Leukocyte Esterase (Negative) Urine WBC (Auto) (0-5) /hpf Urine RBC (Auto) (0-4) /hpf U Hyaline Cast (Auto) (0-5) /lpf U Epithel Cells (Auto) (0-5) /lpf Urine Bacteria (Auto) (Negative) COVID-19 Eval Order SARS-CoV-2 (PCR) (Negative) Influenza Type A (PCR) (Neg) Influenza Type B (PCR) (Neg) RSV (RT-PCR) (Neg) 03/01/21 03/01/21 03/01/21 Range/Units 21:52 23:10 23:10 WBC (4.8-10.8) K/uL RBC (4.7-6.1) M/uL Hgb (14.0-18.0) g/dL Hct (42-52) % MCV (80-100) fL MCH (25-34) pg MCHC (32-36) g/dL RDW Std Deviation (36.4-46.3) fL RDW Coeff of [place]aid (11.5-14.5) % Plt Count (130-400) K/uL MPV (7.4-10.4) fL Immature Gran % (Auto) % Neut % (Auto) % Lymph % (Auto) % [place] % (Auto) % Eos % (Auto) % Baso % (Auto) % Neut # (Auto) (1.4-6.5) K/uL Lymph # (Auto) (1.2-3.4) K/uL [place] # (Auto) (0.11-0.59) K/uL Eos # (Auto) (0-0.5) K/uL Baso # (Auto) (0-0.2) K/uL Immature Gran # (Auto) (0.00-0.02) K/uL Sodium 133 L (136-145) mmol/L Potassium 4.6 (3.5-5.1) mmol/L Chloride 101 (98-107) mmol/L Carbon Dioxide 27 (21-32) mmol/L Anion Gap 5.0 (3-11) BUN 29 H D (7-18) mg/dl Creatinine 1.38 D (0.6-1.4) mg/dl Est Cr Clr Drug Dosing 43.2 ml/min Est GFR ( Amer) 53.6 Est GFR (Non-Af Amer) 46.3 BUN/Creatinine Ratio 21.3 H (10-20) Glucose 436 H* (70-99) mg/dl POC Glucose (70-99) mg/dl Calcium 8.9 (8.5-10.1) mg/dl Total Bilirubin 0.9 (0.2-1) mg/dl AST 8 L (15-37) U/L ALT 24 (12-78) U/L Alkaline Phosphatase 125 H (45-117) U/L Troponin I < 0.015 (0-0.045) ng/ml Total Protein 6.8 (6.4-8.2) gm/dl Albumin 3.8 (3.4-5.0) gm/dl Globulin 3.0 (2.5-4.0) gm/dl Albumin/Globulin Ratio 1.3 (0.9-2) Beta-Hydroxybutyric Acd 1.16 (0.2-2.81) mg/dl TSH 1.990 (0.300-4.500) uIu/ml Urine Color Urine Appearance (Clear) Urine pH (4.5-7.5) Ur Specific [place] (1.000-1.030) Urine Protein (Negative) Urine Glucose (UA) (Negative) Urine Ketones (Negative) Urine Blood (Negative) Urine Nitrite (Negative) Urine Bilirubin (Negative) Urine Urobilinogen (Negative) Ur Leukocyte Esterase (Negative) Urine WBC (Auto) (0-5) /hpf Urine RBC (Auto) (0-4) /hpf U Hyaline Cast (Auto) (0-5) /lpf U Epithel Cells (Auto) (0-5) /lpf Urine Bacteria (Auto) (Negative) COVID-19 Eval Order CovFluRsv at [facility] SARS-CoV-2 (PCR) NEGATIVE (Negative) Influenza Type A (PCR) Negative (Neg) Influenza Type B (PCR) Negative (Neg) RSV (RT-PCR) Negative (Neg) 03/02/21 03/02/21 03/02/21 Range/Units 00:12 00:13 00:35 WBC (4.8-10.8) K/uL RBC (4.7-6.1) M/uL Hgb (14.0-18.0) g/dL Hct (42-52) % MCV (80-100) fL MCH (25-34) pg MCHC (32-36) g/dL RDW Std Deviation (36.4-46.3) fL RDW Coeff of Anaid (11.5-14.5) % Plt Count (130-400) K/uL MPV (7.4-10.4) fL Immature Gran % (Auto) % Neut % (Auto) % Lymph % (Auto) % [place] % (Auto) % Eos % (Auto) % Baso % (Auto) % Neut # (Auto) (1.4-6.5) K/uL Lymph # (Auto) (1.2-3.4) K/uL [place] # (Auto) (0.11-0.59) K/uL Eos # (Auto) (0-0.5) K/uL Baso # (Auto) (0-0.2) K/uL Immature Gran # (Auto) (0.00-0.02) K/uL Sodium (136-145) mmol/L Potassium (3.5-5.1) mmol/L Chloride (98-107) mmol/L Carbon Dioxide (21-32) mmol/L Anion Gap (3-11) BUN (7-18) mg/dl Creatinine (0.6-1.4) mg/dl Est Cr Clr Drug Dosing ml/min Est GFR ( Amer) Est GFR (Non-Af Amer) BUN/Creatinine Ratio (10-20) Glucose (70-99) mg/dl POC Glucose 330 H* 297 H (70-99) mg/dl Calcium (8.5-10.1) mg/dl Total Bilirubin (0.2-1) mg/dl AST (15-37) U/L ALT (12-78) U/L Alkaline Phosphatase (45-117) U/L Troponin I (0-0.045) ng/ml Total Protein (6.4-8.2) gm/dl Albumin (3.4-5.0) gm/dl Globulin (2.5-4.0) gm/dl Albumin/Globulin Ratio (0.9-2) Beta-Hydroxybutyric Acd (0.2-2.81) mg/dl TSH (0.300-4.500) uIu/ml Urine Color Yellow Urine Appearance Clear (Clear) Urine pH 5.0 (4.5-7.5) Ur Specific [place] 1.032 H (1.000-1.030) Urine Protein Trace H (Negative) Urine Glucose (UA) 3+ H (Negative) Urine Ketones Negative (Negative) Urine Blood Negative (Negative) Urine Nitrite Negative (Negative) Urine Bilirubin Negative (Negative) Urine Urobilinogen Negative (Negative) Ur Leukocyte Esterase Negative (Negative) Urine WBC (Auto) 1-5 (0-5) /hpf Urine RBC (Auto) 5-10 H (0-4) /hpf U Hyaline Cast (Auto) 10-30 H (0-5) /lpf U Epithel Cells (Auto) >30 H (0-5) /lpf Urine Bacteria (Auto) Negative (Negative) COVID-19 Eval Order SARS-CoV-2 (PCR) (Negative) Influenza Type A (PCR) (Neg) Influenza Type B (PCR) (Neg) RSV (RT-PCR) (Neg) Administered Medications Sodium Chloride (Nss 1000ml) 1,000 mls @ 125 mls/hr IV .Q8H STA Stop: 03/02/21 06:51 Last Admin: 03/02/21 00:15 Dose: 125 mls/hr Documented by: [id number] Discontinued Medications Sodium Chloride (Nss 1000ml) 500 mls @ 999 mls/hr IV .Q31M ONE Stop: 03/01/21 23:22 Last Infusion: 03/02/21 00:16 Dose: 0 mls/hr Documented by: [id number] Admin: 03/01/21 23:07 Dose: 999 mls/hr Documented by: [id number] Insulin Human Regular (Novolin-R Insulin Per Unit Charge) 10 units IV NOW STA Stop: 03/01/21 22:53 Last Admin: 03/01/21 23:07 Dose: 10 units Documented by: [id number] Cosigned by: [id number] Insulin Human Regular (Novolin-R Insulin Per Unit Charge) 6 units IV NOW STA Stop: 03/02/21 00:23 Last Admin: 03/02/21 00:30 Dose: 6 units Documented by: [id number] Cosigned by: [id number] Discharge Plan Visit Data Chief Complaint: Hyperglycemia Stated Complaint: HYPERGLYCEMIA ED Provider: David Aguilar Discharge Problem: Hyperglycemia, Cough, Acute confusion Forms Stand Alone Forms: [facility] [employer] Prescriptions Prescriptions: No Action donepezil 10 mg tablet 10 mg PO QAM Qty: 90 RF: 3 Eliquis 2.5 mg tablet 2.5 mg PO BID Qty: 180 RF: 3 lisinopril 10 mg tablet 10 mg PO QAM Qty: 90 RF: 3 (DME) OneTouch Verio test strips Strip See Dose Instructions .ROUTE .MEDSUPPLY Qty: 300 RF: 3 metoprolol succinate 25 mg tablet extended release 24 hr 25 mg PO QAM Qty: 90 RF: 3 Tresiba FlexTouch U-100 100 unit/mL (3 mL) insulin pen 26 unit subcut QAM Qty: 30 RF: 3 ascorbate calcium (vitamin C) 500 mg tablet 500 mg PO QAM RF: 0 vitamin B complex Capsule 1 cap PO QAM RF: 0 (DME) pen needle, diabetic [BD Ultra-Fine Ros Pen Needle] 32 gauge x 5/32" needle See Rx Instructions .ROUTE .MEDSUPPLY RF: 0 cholecalciferol (vitamin D3) 1,000 unit capsule 1,000 units PO QAM RF: 0 nitroglycerin 0.4 mg tablet, sublingual 0.4 mg SL DIRECTED PRN (Reason: Chest Pain) RF: 0 aspirin [Adult Low Dose Aspirin] 81 mg tablet,delayed release (DR/EC) 81 mg PO QAM RF: 0 (DME) lancets [OneTouch Delica Lancets] 33 gauge misc See Dose Instructions .ROUTE .MEDSUPPLY Qty: 100 RF: 5 omega 7-[id number]-fish oil [Fish Oil] 1,200 (144-216) mg Capsule 1 cap PO QAM RF: 0 omeprazole 20 mg capsule,delayed release(DR/EC) 20 mg PO QAM RF: 0 rosuvastatin 40 mg tablet 40 mg PO QAM RF: 0 acetaminophen 325 mg tablet 650 mg PO UD RF: 0 diclofenac sodium [Voltaren] 1 % Gel 2 g EXT HS 7 Days Qty: 50 RF: 1 tramadol 50 mg Tablet 50 mg PO Q4H PRN (Reason: pain) 14 Days Qty: 60 RF: 0 lidocaine 5 % Adhesive Patch,Medicated 1 patch transdermal QAM 15 Days Qty: 15 RF: 0
[2021-03-01 23:58] LABS: Influenza A virus by PCR Negative (Neg); Influenza B virus by PCR Negative (Neg); RSV by PCR Negative (Neg); SARS CoV2 RNA(COVID-19) InHosp NEGATIVE (Negative)
[2021-03-02] MEDS ORDERED: NovoLIN-R INSULIN PER UNIT CHARGE IV STA (00:22)
[2021-03-02 00:49] LABS: Appearance Urine Clear (Clear); Bacteria Urine Automated Negative (Negative); Bilirubin Urine Negative (Negative); Blood Urine Negative (Negative); Color Urine Yellow; Epithelial Cell Urine Auto >30 /lpf (0-5); Glucose Urine UA 3+ (Negative); Ketones Urine Negative (Negative); Leukocyte Esterase Urine Negative (Negative); Nitrite Urine Negative (Negative); Protein Urine Trace (Negative); Specific Gravity Urine 1.032 (1.000-1.030); Urobilinogen Urine Negative (Negative)
--- NOTE | 2021-03-02 01:55 | History & Physical Report ---
Date of Service March 02, 2021 Assessment & Plan (1) Hyperglycemia due to type 2 diabetes mellitus: Hyperglycemia due to diabetes mellitus type 2/dietary noncompliance- Patient's blood sugar shot up to over 400 after he went home from be discharged to the hospital and ate inappropriate foods. His sugars already improving with administration of insulin in ED, and with adequate hydration. Patient is aware that he ate inappropriate foods, but does not not seem to be recognized the significance of that related elevated blood sugars Present on Admission?: Yes (2) Dietary noncompliance: See above Present on Admission?: Yes (3) Paroxysmal atrial fibrillation: Paroxysmal atrial fibrillation/hypertension/LAD stent- Continue apixaban, aspirin, lisinopril, metoprolol succinate and rosuvastatin Present on Admission?: Yes (4) Presence of stent in LAD coronary artery: See above Present on Admission?: Yes (5) Mild dementia: Continue aspirin, donepezil and fish oil Present on Admission?: Yes (6) Closed rib fracture: For closed rib fractures left 7 through 10- Patient reports pain is well controlled with lidocaine patch during the day and Voltaren gel at nighttime Present on Admission?: Yes History of Present Illness Chief Complaint: The patient presents to the emergency department due to family concerns regarding elevated blood sugar at home today Primary Care Provider: Kd Bryant MD The patient is an 85-year-old male with a past medical history including neurode generative cognitive impairment, diabetes mellitus, BPH with LUTS, mild dementia, paroxysmal atrial fibrillation, chronic anticoagulation, left bundle branch block, LAD stent, CAD, diabetic neuropathy, diabetic retinopathy, hyperlipidemia, hypertension, aortic stenosis, mitral regurgitation, nontoxic multinodular goiter and vitamin D deficiency. Patient was most recently mid to [facility] from 02/27-02/28/2021 due to left 7 through 10 rib fractures obtained status post fall. He reports his pain has been well controlled since discharge, however, when he went home, he ate things that he should not have, which caused his sugar to go up, which caused his family to be concerned, and then referred him back to the ED this evening Allergies Allergy/AdvReac Type Severity Reaction Status Date / Time Sulfa (Sulfonamide Allergy Unknown UNKNOWN BY Verified 03/02/21 00:09 Antibiotics) PATIENT Home Medications Medication Instructions Recorded Confirmed Type cholecalciferol (vitamin D3) 25 1,000 units PO QAM cap 05/16/19 03/02/21 History mcg (1,000 unit) capsule aspirin 81 mg tablet,delayed 81 mg PO QAM 06/20/19 03/02/21 History release nitroglycerin 0.4 mg sublingual 0.4 mg SL DIRECTED PRN tab 06/20/19 03/02/21 History tablet ascorbate calcium (vitamin C) 500 500 mg PO QAM 03/28/20 03/02/21 History mg tablet vitamin B complex 1 cap PO QAM 04/05/20 03/02/21 History pen needle, diabetic 32 gauge x ea 05/31/20 03/01/21 History " omega 0-lvj-pnh-fish oil [Fish Oil] 1 cap PO QAM 09/30/20 03/02/21 History omeprazole 20 mg PO QAM 09/30/20 03/02/21 History rosuvastatin 40 mg PO QAM 09/30/20 03/02/21 History donepezil 10 mg tablet 10 mg PO QAM #90 tab 10/26/20 03/02/21 Rx apixaban 2.5 mg tablet 2.5 mg PO BID #180 tab 11/19/20 03/02/21 Rx lisinopril 10 mg tablet 10 mg PO QAM #90 tab 01/01/21 03/02/21 Rx OneTouch Verio test strips #300 ea NS 01/07/21 03/01/21 Rx lancets 33 gauge #100 ea 01/07/21 03/01/21 Rx metoprolol succinate 25 mg 25 mg PO QAM #90 tab 02/05/21 03/02/21 Rx tablet,extended release 24 hr diclofenac sodium [Voltaren] 2 g EXT HS 7 Days #50 g 02/28/21 03/02/21 Rx lidocaine 1 patch TRANSDERMAL QAM 15 Days 02/28/21 03/02/21 Rx #15 ea tramadol 50 mg PO Q4H PRN 14 Days #60 tab 02/28/21 03/02/21 Rx Tresiba FlexTouch U-100 100 26 unit SUBCUT QAM #30 ml NS 03/01/21 03/02/21 Rx unit/mL (3 mL) subcutaneous pen acetaminophen 650 mg PO UD 03/02/21 03/02/21 History Past Med/Surg History Medical History (Updated 03/02/21 @ 03:55 by Paulo Stephenson MD) Abnormal electrocardiogram Acute hyperglycemia Acute hyponatremia Arteriosclerotic heart disease Benign prostatic hyperplasia Benign prostatic hyperplasia with urinary obstruction Calculus of ureter (06/07/12) Central retinal vein occlusion CHI (closed head injury) Chronic anticoagulation Chronic prostatitis Chronic rhinitis Coronary atherosclerosis of [place] coronary vessel (06/07/12) Diabetes mellitus type 2 with neurological manifestations Diabetic retinopathy Dupuytrens contracture Dysesthesia Elevated PSA Enlarged prostate with lower urinary tract symptoms (LUTS) Facial abrasion Fall from slip, trip, or stumble Former smoker Hematospermia Hyperlipidemia Hypertension Impaired sensation Laryngopharyngeal reflux Left shoulder strain Leukopenia Microalbuminuria due to type 2 diabetes mellitus Microscopic hematuria Mild aortic regurgitation Mild aortic stenosis Mild mitral regurgitation Myocardial infarction (06/07/12) Nephrolithiasis Nontoxic multinodular goiter Other and unspecified hyperlipidemia (06/07/12) Pancytopenia (~2000) PND (post-nasal drip) Rhabdomyolysis Right rib fracture Sepsis (06/07/12) Septicemia due to Gram-negative organism, unspecified (06/07/12) Vitamin D deficiency Weakness Surgical History History of arthroscopy of knee History of cataract surgery History of colonoscopy History of cystoscopy History of tonsillectomy S/P drug eluting coronary stent placement Status post Mohs surgery Family History Brother Coronary heart disease Father Angina pectoris Carcinoma of pancreas Myocardial infarction Mother Congestive heart failure Breast cancer Unknown Diabetes Heart disease Hypertension Daughter Breast cancer Denies family history of Ovarian cancer Prostate cancer Colorectal cancer Social History Smoking Status: Never smoker Tobacco Type: Cigarettes Second Hand Exposure: No; Hx Alcohol Use: No Hx Substance Use: No Preferred Language: Croatian Communication Ability: Effective Visual Impairment: Limited Hearing Ability: Normal Head Esthetician Required: No Beliefs That Will Affect Care: None marital status: / Current Living Situation: Other Current Living Situation Comment: Lives w/ girlfriend, Amberdevin Huang current occupational status: retired How many Children do You have: 3 Feels Safe at Home: Yes Childhood Exposure to Second-Hand Smoke: No caffeine: Yes Dental Care, Regularly: Yes Physical Activity Frequency: 1-2 Times per Week Seatbelt Use: always Sunscreen Use: Yes Assistive Devices: Glasses Review of Systems Review of Systems: The patient denies chest pain, palpitations, shortness of breath, dyspnea on exertion, cough, lower extremity swelling, sore throat, fevers, chills, sweats, nausea, vomiting, diarrhea , constipation, abdominal pain, pelvic pain, blood in urine or stool, dysuria, urinary frequency or urgency, lightheadedness, dizziness, headache, memory loss, loss of consciousness, rash, abnormal bruising or bleeding, focal or generalized weakness, numbness or tingling in arms or legs, generalized arthralgias or myalgias, back or neck pain, or night sweats. The review of systems is otherwise negative other than for that already noted above, and at least 10 systems have been reviewed. Physical Exam Physical Exam: The patient is awake, alert and oriented 3, well developed and well nourished, normocephalic and atraumatic, lying in bed and in no acute distress. HEENT--PERRL, EOMI, mucous membranes and oropharynx dry. Neck--supple. No JVD. No bruits. Thyroid normal, trachea midline, no adenopathy. Heart--normal S1 and S2. No murmurs, rubs or gallops. Lungs--clear bilaterally, no respiratory distress, no accessory muscle use. Abdomen--normal bowel sounds and soft. Nontender. Nondistended. Extremities--no cyanosis or clubbing. No edema. Dermatologic--normal skin turgor, normal color, no abnormal lymph nodes, no rash. Neurologic--cranial nerves II through XII grossly intact. Rheumatologic--normal range of motion. Psychiatric--normal affect. Results & Data Results & Data ([facility]) Vital Signs (Past 12 Hours) Vital Signs Temp Pulse Resp BP Pulse Ox 03/02/21 01:10 65 26 H 95 03/02/21 01:01 63 14 95 03/02/21 01:00 65 16 119/88 95 03/02/21 00:50 69 19 96 03/02/21 00:40 68 20 95 03/02/21 00:31 66 19 03/02/21 00:30 65 18 141/72 H 03/02/21 00:20 67 18 95 03/02/21 00:10 67 13 95 03/02/21 00:01 72 16 96 03/02/21 00:00 69 16 153/94 H 96 03/01/21 23:52 72 18 95 03/01/21 23:24 67 14 185/70 H 95 03/01/21 23:20 66 12 95 03/01/21 23:10 66 19 95 03/01/21 23:01 68 16 185/70 H 95 03/01/21 23:00 65 19 95 03/01/21 22:50 71 20 96 03/01/21 22:40 70 15 96 03/01/21 22:34 73 13 96 03/01/21 22:10 66 20 96 03/01/21 22:00 67 19 143/78 H 95 03/01/21 21:38 94 03/01/21 21:30 66 18 138/68 94 03/01/21 21:00 68 15 136/74 95 03/01/21 20:48 98.2 F 73 18 161/76 H 95 Laboratory Results Laboratory Results WBC 4.48 K/uL (4.8-10.8) L 03/01/21 21:52 RBC 4.07 M/uL (4.7-6.1) L 03/01/21 21:52 Hgb 13.6 g/dL (14.0-18.0) L 03/01/21 21:52 Hct 39.3 % (42-52) L 03/01/21 21:52 MCV 96.6 fL (80-100) 03/01/21 21:52 MCH 33.4 pg (25-34) 03/01/21 21:52 MCHC 34.6 g/dL (32-36) 03/01/21 21:52 RDW Std Deviation 46.2 fL (36.4-46.3) 03/01/21 21:52 RDW Coeff of [place]aid 13.3 % (11.5-14.5) 03/01/21 21:52 Plt Count 132 K/uL (130-400) 03/01/21 21:52 MPV 9.8 fL (7.4-10.4) 03/01/21 21:52 Immature Gran % (Auto) 0.0 % 03/01/21 21:52 Neut % (Auto) 67.4 % 03/01/21 21:52 Lymph % (Auto) 19.0 % 03/01/21 21:52 [place] % (Auto) 12.3 % 03/01/21 21:52 Eos % (Auto) 1.1 % 03/01/21 21:52 Baso % (Auto) 0.2 % 03/01/21 21:52 Neut # (Auto) 3.02 K/uL (1.4-6.5) 03/01/21 21:52 Lymph # (Auto) 0.85 K/uL (1.2-3.4) L 03/01/21 21:52 [place] # (Auto) 0.55 K/uL (0.11-0.59) 03/01/21 21:52 Eos # (Auto) 0.05 K/uL (0-0.5) 03/01/21 21:52 Baso # (Auto) 0.01 K/uL (0-0.2) 03/01/21 21:52 Immature Gran # (Auto) 0.00 K/uL (0.00-0.02) 03/01/21 21:52 Sodium 133 mmol/L (136-145) L 03/01/21 21:52 Potassium 4.6 mmol/L (3.5-5.1) 03/01/21 21:52 Chloride 101 mmol/L (98-107) 03/01/21 21:52 Carbon Dioxide 27 mmol/L (21-32) 03/01/21 21:52 Anion Gap 5.0 (3-11) 03/01/21 21:52 BUN 29 mg/dl (7-18) H D 03/01/21 21:52 Creatinine 1.38 mg/dl (0.6-1.4) D 03/01/21 21:52 Est Cr Clr Drug Dosing 43.2 ml/min 03/01/21 21:52 Est GFR ( Amer) 53.6 03/01/21 21:52 Est GFR (Non-Af Amer) 46.3 03/01/21 21:52 BUN/Creatinine Ratio 21.3 (10-20) H 03/01/21 21:52 Glucose 436 mg/dl (70-99) H* 03/01/21 21:52 POC Glucose 164 mg/dl (70-99) H 03/02/21 02:50 Calcium 8.9 mg/dl (8.5-10.1) 03/01/21 21:52 Total Bilirubin 0.9 mg/dl (0.2-1) 03/01/21 21:52 AST 8 U/L (15-37) L 03/01/21 21:52 ALT 24 U/L (12-78) 03/01/21 21:52 Alkaline Phosphatase 125 U/L (45-117) H 03/01/21 21:52 Troponin I < 0.015 ng/ml (0-0.045) 03/01/21 21:52 Total Protein 6.8 gm/dl (6.4-8.2) 03/01/21 21:52 Albumin 3.8 gm/dl (3.4-5.0) 03/01/21 21:52 Globulin 3.0 gm/dl (2.5-4.0) 03/01/21 21:52 Albumin/Globulin Ratio 1.3 (0.9-2) 03/01/21 21:52 Beta-Hydroxybutyric Acd 1.16 mg/dl (0.2-2.81) 03/01/21 21:52 TSH 1.990 uIu/ml (0.300-4.500) 03/01/21 21:52 Urine Color Yellow 03/02/21 00:35 Urine Appearance Clear (Clear) 03/02/21 00:35 Urine pH 5.0 (4.5-7.5) 03/02/21 00:35 Ur Specific [place] 1.032 (1.000-1.030) H 03/02/21 00:35 Urine Protein Trace (Negative) H 03/02/21 00:35 Urine Glucose (UA) 3+ (Negative) H 03/02/21 00:35 Urine Ketones Negative (Negative) 03/02/21 00:35 Urine Blood Negative (Negative) 03/02/21 00:35 Urine Nitrite Negative (Negative) 03/02/21 00:35 Urine Bilirubin Negative (Negative) 03/02/21 00:35 Urine Urobilinogen Negative (Negative) 03/02/21 00:35 Ur Leukocyte Esterase Negative (Negative) 03/02/21 00:35 Urine WBC (Auto) 1-5 /hpf (0-5) 03/02/21 00:35 Urine RBC (Auto) 5-10 /hpf (0-4) H 03/02/21 00:35 U Hyaline Cast (Auto) 10-30 /lpf (0-5) H 03/02/21 00:35 U Epithel Cells (Auto) >30 /lpf (0-5) H 03/02/21 00:35 Urine Bacteria (Auto) Negative (Negative) 03/02/21 00:35 COVID-19 Eval Order CovFluRsv at [facility] 03/01/21 23:10 SARS-CoV-2 (PCR) NEGATIVE (Negative) 03/01/21 23:10 Influenza Type A (PCR) Negative (Neg) 03/01/21 23:10 Influenza Type B (PCR) Negative (Neg) 03/01/21 23:10 RSV (RT-PCR) Negative (Neg) 03/01/21 23:10 Code Status & VTE Plan Code Status Full code VTE Prophylaxis Plan VTE Prophylaxis will be ordered: Yes PG Care Time/CCT Total # of Minutes Spent Total Time Spent with Patient: Total time spent is greater than 50% in coordination of care (as documented) at patient's floor/unit and/or counseling patient: Coding Level of Care Code 89028 OBS Care - Level 3 Diagnoses Hyperglycemia due to type 2 diabetes mellitus E11.65 Dietary noncompliance Z91.11 Paroxysmal atrial fibrillation I48.0 Presence of stent in LAD coronary artery Z95.5 Mild dementia F03.90 Closed rib fracture S22.42XA Encounter type: initial encounter Laterality: left Rib fracture type: multiple ribs (1) Closed rib fracture Encounter type: initial encounter Laterality: left Rib fracture type: multiple ribs Qualified Code(s): S22.42XA - Multiple fractures of ribs, left side, initial encounter for closed fracture
[2021-03-02] MEDS ORDERED: ACETAMINOPHEN 325 MG TAB PO SCH (03:08)
[2021-03-02] MEDS ORDERED: ACETAMINOPHEN 325 MG TAB PO PRN (03:08)
[2021-03-02] MEDS ORDERED: NITROGLYCERIN SL 0.4 MG/TAB TAB SL PRN (03:08)
[2021-03-02] MEDS ORDERED: CARBOHYDRATES FOR HYPOGLYCEMIA PO PRN (03:08)
[2021-03-02] MEDS ORDERED: ONDANSETRON INJ 2 MG/ML 2 ML VIAL IV PRN (03:08)
[2021-03-02] MEDS ORDERED: GLUCOSE 10 TABS/TUBE PO PRN (03:08)
[2021-03-02] MEDS ORDERED: DEXTROSE 50% 50 ML SYRINGE IV PRN (03:08)
[2021-03-02] MEDS ORDERED: GLUCAGON FOR INJ 1 MG VIAL SQ PRN (03:08)
[2021-03-02] MEDS ORDERED: GLUCOSE 40% GEL 15 GM TUBE PO PRN (03:08)
--- NOTE | 2021-03-02 07:34 | CT Scan Report ---
CT head/brain wo con CLINICAL HISTORY: Head trauma. Acute change in mental status COMPARISON STUDY: 02/27/2021 TECHNIQUE: Axial CT of the brain is performed from the vertex to the skull base. IV contrast was not administered for this examination. A dose lowering technique was utilized adhering to the principles of ALARA. CT DOSE: 1572.52 mGy.cm FINDINGS: No intra or extra-axial mass lesions are visualized. There is no CT evidence of acute cortical infarc tion. There is no evidence of midline shift. There is no acute hemorrhage. No calvarial fractures ar e visualized. There are patchy white matter hypodensities likely on a small vessel basis. There is no evidence of pathologic ventricular dilatation. There is no evidence of acute sinusitis IMPRESSION: No acute intracranial findings ACT 112: Negative or not required by law. Electronically signed by: Cedrick Pruett M.D. 03/02/2021 7:33 AM
[2021-03-02] MEDS ORDERED: PHARMACY GLYCEMIC MGMT CONSULT PRN (07:56)
[2021-03-02] MEDS: OMEGA-3 (PURIFIED FISH OIL) 1 GM CAP PO SCH (08:28)
[2021-03-02] MEDS: LIDOCAINE 5% 1 PATCH TD SCH (08:28)
[2021-03-02] MEDS: METOPROLOL SUCC 25MG EXT REL TAB PO SCH (08:28)
[2021-03-02] MEDS: ASCORBIC ACID 500 MG TAB PO SCH (08:28)
[2021-03-02] MEDS: CHOLECALCIFEROL 1,000 UNITS 25 MCG TAB PO SCH (08:28)
[2021-03-02] MEDS: PANTOprazole 40 MG TAB PO SCH (08:28)
[2021-03-02] MEDS: DONEPEZIL HCL 10 MG TAB PO SCH (08:28)
[2021-03-02] MEDS: ROSUVASTATIN CALCIUM 20 MG TAB PO SCH (08:28)
[2021-03-02] MEDS: lisinopril 10 MG TAB PO SCH (08:28)
[2021-03-02] MEDS: VITAMIN B COMPLEX TAB PO SCH (08:28)
[2021-03-02] MEDS: ASPIRIN 81 MG ECTAB PO SCH (08:28)
[2021-03-02] MEDS: APIXABAN 2.5 MG TAB PO SCH ×2 (08:28→20:38)
[2021-03-02] MEDS: INSULIN ASPART 100 UNITS/ML 3 ML PEN SC SCH ×4 (08:29→20:47)
--- NOTE | 2021-03-02 08:33 | CT Scan Report ---
CT chest diagnostic wo con CT DOSE: 335.58 mGy.cm CLINICAL HISTORY: 85 years-old Male with cough, recent rib fx. Acute cough with reported rib fractur es TECHNIQUE: Multiaxial CT images of the chest were performed without contrast. A dose lowering techni que was utilized adhering to the principles of ALARA. COMPARISON: Chest radiograph of same day, chest CT 02/27/2021 FINDINGS: No thyroid nodule or adenopathy identified. Moderate cardiomegaly with extensive coronary artery calc ifications. Ectasia of the ascending thoracic aorta is unchanged, 4.2 cm. Small left pleural effusion , new from comparison. No pneumothorax. Mild left lung base atelectasis. No overt pulmonary edema, ai rspace consolidation typical for pneumonia or suspicious pulmonary nodule. The central airways are pa tent. There is no pneumoperitoneum. Nonobstructing bilateral nephrolithiasis measuring up to approximately 3 mm. Cholelithiasis. Moderate fecal retention. Mild nonspecific distal esophageal wall thickening. U nremarkable soft tissues. Degenerative changes of the shoulders and spine. Acute fractures of the pos terior left seventh through 10th ribs redemonstrated. Mildly progressed displacement of the seventh a nd eighth rib fractures. IMPRESSION: 1. Acute fractures of the left seventh through tenth ribs with new mild displacement of the seventh a nd eighth rib fractures. No pneumothorax. 2. New small left pleural effusion with mild left lung base atelectasis. 3. Nonobstructing bilateral nephrolithiasis. 4. Cholelithiasis. ACT 112: Negative or not required by law. Electronically signed by: Galen Herron M.D. 03/02/2021 8:32 AM
--- NOTE | 2021-03-02 08:54 | XRay Report ---
XR chest 1V portable CLINICAL HISTORY: weakness COMPARISON STUDY: 09/30/2020 FINDINGS: The heart is mildly enlarged. There is no failure. There is no focal pulmonary consolidatio n. No pleural effusions are visualized. There are minor basilar atelectatic changes.[ IMPRESSION: 1. Mild cardiomegaly. No acute findings. ACT 112: Negative or not required by law. Electronically signed by: Cedrick Pruett M.D. 03/02/2021 8:53 AM
[2021-03-02] MEDS ORDERED: INSULIN GLARGINE SOLOSTAR 100 UNITS/ML 3 ML PEN SC SCH (09:00)
[2021-03-02 10:06] LABS: Basophils # (auto) 0.01 K/uL (0-0.2); Basophils % (auto) 0.2 %; Eosinophils # (auto) 0.09 K/uL (0-0.5); Eosinophils % (auto) 1.7 %; Hematocrit (blood only) 35.1 % (42-52); Hemoglobin 12.5 g/dL (14.0-18.0); Lymphocytes # (auto) 0.63 K/uL (1.2-3.4); Mean Corpuscular Hemoglobin 33.7 pg (25-34); Mean Corpuscular Hgb Conc 35.6 g/dL (32-36); Mean Corpuscular Volume 94.6 fL (80-100); Mean Platelet Volume 9.7 fL (7.4-10.4); Monocytes # (auto) 0.56 K/uL (0.11-0.59); Monocytes % (auto) 10.6 %; Neutrophils # (auto) 3.98 K/uL (1.4-6.5); Neutrophils % (auto) 75.5 %; Platelet Count 130 K/uL (130-400); RDW Coefficient of Variation 13.2 % (11.5-14.5); RDW Standard Deviation 45.7 fL (36.4-46.3); Red Blood Count 3.71 M/uL (4.7-6.1); White Blood Count 5.27 K/uL (4.8-10.8)
--- NOTE | 2021-03-02 10:16 | Pharmacy Report ---
Pharmacy Glycemic Short Note 2 - Date of Service March 02, 2021 - Glycemic Short BSG Results (Last 24 hours): 03/01/21 03/01/21 03/01/21 20:49 20:50 21:52 Glucose 436 H* POC Glucose 466 H* 478 H* 03/02/21 03/02/21 03/02/21 00:12 00:13 02:50 Glucose POC Glucose 330 H* 297 H 164 H 03/02/21 03/02/21 06:09 07:30 Glucose POC Glucose 148 H 139 H OUTPATIENT ANTIDIABETIC REGIMEN: * Insulin Degludec (Tresiba) 26 units SQ AM * A1c = 10.1% on 02/28/21 ASSESSMENT: * 85yo T2DM admitted for hyperglycemia resulting from "inappropriate foods." * Hyperglycemia resolved quickly with fluids and IV insulin boluses in ED. * Pt just dc from [facility] on 02/28/21 - will continue similar regimen from this admission. * Pt will need bolus insulin on discharge to combat rebound hyperglycemia from high CHO foods. PLAN FOR INPATIENT GLYCEMIC CONTROL: * Hold outpatient oral diabetes medications * Basal insulin * Substitute insulin degludec (non-formulary) for Lantus 26 units SQ daily in AM * Bolus insulin * NovoLog per scale ACHS or Q6hrs while NPO * Goal Range: Low 100 mg/dL - High 150 mg/dL * Correction Factor: 25 mg/dL/unit * Nutritional / Prandial insulin per carb ratio of 1 unit per 10 grams CHO consumed PLAN FOR DISCHARGE: * A1c = 10.1 % on 02/28/21 * Goal A1c = 8-9% based on age and comorbidities * Recommend continuing insulin degludec (Tresiba) 26 units SQ AM * Recommend adding bolus insulin with NovoLog/Regular (exact rapid acting insulin TBD based on insurance coverage) with high CHO meals and PRN hyperglycemia. * Meal time coverage = 5 units of rapid acting insulin with high CHO meals + Additional SSI for hyperglycemia * Could consider the following "low dose SSI" (CF ~ 25mg/dl/unit) * Blood Sugar 151-200 administer 1 units * Blood Sugar 201-250 administer 3 units * Blood Sugar 251-300 administer 5 units * Blood Sugar 301-350 administer 7 units * Blood Sugar 351-400 administer 9 units * Blood Sugar >400 administer 11 units and call
[2021-03-02 10:27] LABS: Albumin Level 3.2 gm/dl (3.4-5.0); BUN Creatinine Ratio 28.1 (10-20); Calcium 8.5 mg/dl (8.5-10.1); Creatinine Clr Calc Pharmacy 69.5 ml/min; Est GFR (African American) 91.6; Est GFR (Non-African American) 79.1; Phosphorus 2.8 mg/dl (2.5-4.9); Potassium 4.4 mmol/L (3.5-5.1)
--- NOTE | 2021-03-02 18:40 | Electrocardiogram Report ---
Test Reason : Blood Pressure : / mmHG Vent. Rate : 071 BPM Atrial Rate : 071 BPM P-R Int : 274 ms QRS Dur : 150 ms QT Int : 444 ms P-R-T Axes : 025 -44 080 degrees QTc Int : 482 ms Sinus rhythm with 1st degree A-V block Left axis deviation Left bundle branch block Abnormal ECG When compared with ECG of 27-FEB-2021 17:56, No significant change was found Confirmed by Kanu Thakur ([id number]) on 03/02/2021 6:39:58 PM Referred By: REFERRED SELF Confirmed By:Amado Thakur
[2021-03-02] MEDS: DICLOFENAC SOD 1% GEL 100 GM TUBE EXT SCH (20:37)
--- NOTE | 2021-03-02 22:06 | Hospitalist Progress Note ---
Date of Service March 02, 2021 Assessment & Plan (1) Hyperglycemia due to type 2 diabetes mellitus: Hyperglycemia due to diabetes mellitus type 2/dietary noncompliance- Patient's blood sugar shot up to over 400 after he went home from be discharged to the hospital and ate inappropriate foods. His sugars already improving with administration of insulin in ED, and with adequate hydration. plan to use Lantus and Novolog SS while admitted, correction factor 25 and carb ratio of 10 should be able to continue this plan at a SNF rehab if we can get approval for home, could likely use a higher dose of basal with addition of GLP-1 inhibitor pharmacy exploring cost, options (2) Dietary noncompliance: See above (3) Paroxysmal atrial fibrillation: Paroxysmal atrial fibrillation/hypertension/LAD stent- Continue apixaban, aspirin, lisinopril, metoprolol succinate and rosuvastatin heart rate stable, downgrade to medical status (4) Presence of stent in LAD coronary artery: See above (5) Mild dementia: Continue aspirin, donepezil and fish oil (6) Closed rib fracture: For closed rib fractures left 7 through 10- Patient reports pain is well controlled with lidocaine patch during the day and Voltaren gel at nighttime can use Tylenol and Ultram PRN Admission and Anticipated Discharge Date Admission Date: March 02, 2021 Subjective patient doing okay today, c/o left rib pain but it is moderate eating and drinking well today sugars are better controlled reviewed outpatient records, he saw endocrinology on 02/13, he was having issues managing his sugars he was prescribed 70/30, was not using correctly, insulin was not refridgerated as it should be at that time, he was placed on Tresiba 26 units, did not want to give too much insulin as to cause hypoglycemic events after patient was discharged a few days ago he was having confusion, could not check his sugars when finally checked they were over 400 I spoke with both sons, Jacques and Carlos, they are interested in patient going to rehab will get PT/OT and have CM work with family on referrals spoke with pharmacist, will use Lantus and Novolog SS for now and on discharge to rehab but there is no way patient can administer Novolog at home looking into cost of GLP-1 inhibitor in addition to the basal dosing Review of Systems Review of Systems: All systems reviewed & are unremarkable except as noted in Subjective Cardiovascular: + chest pain (left sided rib pain) Physical Exam Constitutional: WD/WN, vitals as above Neck: trachea midline, no thyromegaly Respiratory: normal respiratory effort, lungs clear to auscultation Cardiovascular: RRR, no murmur, no edema Chest (Breasts): Chest: normal inspection of chest (left sided rib pain on palpation) Gastrointestinal (Abdomen): normal bowel sounds, soft, nontender, no hepatosplenomegaly Musculoskeletal: no cyanosis or clubbing, extremities motor strength 5/5 Skin: no rashes, warm and dry Neurologic: patellar DTR's 2+ bilat, sensation intact and PERRL, EOMI, accommodation nl, no face palsy, no dysarthria Psychiatric: A+Ox3, euthymic affect Lymphatic: no cervical or axillary lymphadenopathy Results & Data Results & Data ([facility]) Vital Signs (Past 12 Hours) Vital Signs Temp Pulse Pulse Pulse Resp BP Pulse Ox 03/02/21 19:24 37.1 C 75 18 174/83 H 94 03/02/21 17:04 71 03/02/21 16:51 36.3 C L 72 16 185/65 H 95 03/02/21 12:25 36.9 C 54 L 16 138/71 95 Laboratory Results Laboratory Results - last 24 hr 03/01/21 03/01/21 03/01/21 21:52 23:10 23:10 WBC RBC Hgb Hct MCV MCH MCHC RDW Std Deviation RDW Coeff of Anaid Plt Count MPV Immature Gran % (Auto) Neut % (Auto) Lymph % (Auto) Davis % (Auto) Eos % (Auto) Baso % (Auto) Neut # (Auto) Lymph # (Auto) Davis # (Auto) Eos # (Auto) Baso # (Auto) Immature Gran # (Auto) Sodium 133 L Potassium 4.6 Chloride 101 Carbon Dioxide 27 Anion Gap 5.0 BUN 29 H D Creatinine 1.38 D Est Cr Clr Drug Dosing 43.2 Est GFR ( Amer) 53.6 Est GFR (Non-Af Amer) 46.3 BUN/Creatinine Ratio 21.3 H Glucose 436 H* POC Glucose Calcium 8.9 Phosphorus Total Bilirubin 0.9 AST 8 L ALT 24 Alkaline Phosphatase 125 H Troponin I < 0.015 Total Protein 6.8 Albumin 3.8 Globulin 3.0 Albumin/Globulin Ratio 1.3 Beta-Hydroxybutyric Acd 1.16 TSH 1.990 Urine Color Urine Appearance Urine pH Ur Specific Ulmer Urine Protein Urine Glucose (UA) Urine Ketones Urine Blood Urine Nitrite Urine Bilirubin Urine Urobilinogen Ur Leukocyte Esterase Urine WBC (Auto) Urine RBC (Auto) U Hyaline Cast (Auto) U Epithel Cells (Auto) Urine Bacteria (Auto) COVID-19 Eval Order CovFluRsv at [facility] SARS-CoV-2 (PCR) NEGATIVE Influenza Type A (PCR) Negative Influenza Type B (PCR) Negative RSV (RT-PCR) Negative 03/02/21 03/02/21 03/02/21 00:12 00:13 00:35 WBC RBC Hgb Hct MCV MCH MCHC RDW Std Deviation RDW Coeff of Anaid Plt Count MPV Immature Gran % (Auto) Neut % (Auto) Lymph % (Auto) Davis % (Auto) Eos % (Auto) Baso % (Auto) Neut # (Auto) Lymph # (Auto) Davis # (Auto) Eos # (Auto) Baso # (Auto) Immature Gran # (Auto) Sodium Potassium Chloride Carbon Dioxide Anion Gap BUN Creatinine Est Cr Clr Drug Dosing Est GFR ( Amer) Est GFR (Non-Af Amer) BUN/Creatinine Ratio Glucose POC Glucose 330 H* 297 H Calcium Phosphorus Total Bilirubin AST ALT Alkaline Phosphatase Troponin I Total Protein Albumin Globulin Albumin/Globulin Ratio Beta-Hydroxybutyric Acd TSH Urine Color Yellow Urine Appearance Clear Urine pH 5.0 Ur Specific Ulmer 1.032 H Urine Protein Trace H Urine Glucose (UA) 3+ H Urine Ketones Negative Urine Blood Negative Urine Nitrite Negative Urine Bilirubin Negative Urine Urobilinogen Negative Ur Leukocyte Esterase Negative Urine WBC (Auto) 1-5 Urine RBC (Auto) 5-10 H U Hyaline Cast (Auto) 10-30 H U Epithel Cells (Auto) >30 H Urine Bacteria (Auto) Negative COVID-19 Eval Order SARS-CoV-2 (PCR) Influenza Type A (PCR) Influenza Type B (PCR) RSV (RT-PCR) 03/02/21 03/02/21 03/02/21 02:50 06:09 07:30 WBC RBC Hgb Hct MCV MCH MCHC RDW Std Deviation RDW Coeff of Anaid Plt Count MPV Immature Gran % (Auto) Neut % (Auto) Lymph % (Auto) Davis % (Auto) Eos % (Auto) Baso % (Auto) Neut # (Auto) Lymph # (Auto) Davis # (Auto) Eos # (Auto) Baso # (Auto) Immature Gran # (Auto) Sodium Potassium Chloride Carbon Dioxide Anion Gap BUN Creatinine Est Cr Clr Drug Dosing Est GFR ( Amer) Est GFR (Non-Af Amer) BUN/Creatinine Ratio Glucose POC Glucose 164 H 148 H 139 H Calcium Phosphorus Total Bilirubin AST ALT Alkaline Phosphatase Troponin I Total Protein Albumin Globulin Albumin/Globulin Ratio Beta-Hydroxybutyric Acd TSH Urine Color Urine Appearance Urine pH Ur Specific Ulmer Urine Protein Urine Glucose (UA) Urine Ketones Urine Blood Urine Nitrite Urine Bilirubin Urine Urobilinogen Ur Leukocyte Esterase Urine WBC (Auto) Urine RBC (Auto) U Hyaline Cast (Auto) U Epithel Cells (Auto) Urine Bacteria (Auto) COVID-19 Eval Order SARS-CoV-2 (PCR) Influenza Type A (PCR) Influenza Type B (PCR) RSV (RT-PCR) 03/02/21 03/02/21 03/02/21 09:21 09:21 11:07 WBC 5.27 RBC 3.71 L Hgb 12.5 L Hct 35.1 L MCV 94.6 MCH 33.7 MCHC 35.6 RDW Std Deviation 45.7 RDW Coeff of Anaid 13.2 Plt Count 130 MPV 9.7 Immature Gran % (Auto) 0.0 Neut % (Auto) 75.5 Lymph % (Auto) 12.0 Davis % (Auto) 10.6 Eos % (Auto) 1.7 Baso % (Auto) 0.2 Neut # (Auto) 3.98 Lymph # (Auto) 0.63 L Davis # (Auto) 0.56 Eos # (Auto) 0.09 Baso # (Auto) 0.01 Immature Gran # (Auto) 0.00 Sodium 139 Potassium 4.4 Chloride 105 Carbon Dioxide 29 Anion Gap 5.0 BUN 24 H Creatinine 0.86 D Est Cr Clr Drug Dosing 69.5 Est GFR ( Amer) 91.6 Est GFR (Non-Af Amer) 79.1 BUN/Creatinine Ratio 28.1 H Glucose 233 H POC Glucose 198 H Calcium 8.5 Phosphorus 2.8 Total Bilirubin AST ALT Alkaline Phosphatase Troponin I Total Protein Albumin 3.2 L Globulin Albumin/Globulin Ratio Beta-Hydroxybutyric Acd TSH Urine Color Urine Appearance Urine pH Ur Specific Ulmer Urine Protein Urine Glucose (UA) Urine Ketones Urine Blood Urine Nitrite Urine Bilirubin Urine Urobilinogen Ur Leukocyte Esterase Urine WBC (Auto) Urine RBC (Auto) U Hyaline Cast (Auto) U Epithel Cells (Auto) Urine Bacteria (Auto) COVID-19 Eval Order SARS-CoV-2 (PCR) Influenza Type A (PCR) Influenza Type B (PCR) RSV (RT-PCR) 03/02/21 03/02/21 16:40 20:39 WBC RBC Hgb Hct MCV MCH MCHC RDW Std Deviation RDW Coeff of Anaid Plt Count MPV Immature Gran % (Auto) Neut % (Auto) Lymph % (Auto) Davis % (Auto) Eos % (Auto) Baso % (Auto) Neut # (Auto) Lymph # (Auto) Davis # (Auto) Eos # (Auto) Baso # (Auto) Immature Gran # (Auto) Sodium Potassium Chloride Carbon Dioxide Anion Gap BUN Creatinine Est Cr Clr Drug Dosing Est GFR ( Amer) Est GFR (Non-Af Amer) BUN/Creatinine Ratio Glucose POC Glucose 99 218 H Calcium Phosphorus Total Bilirubin AST ALT Alkaline Phosphatase Troponin I Total Protein Albumin Globulin Albumin/Globulin Ratio Beta-Hydroxybutyric Acd TSH Urine Color Urine Appearance Urine pH Ur Specific Ulmer Urine Protein Urine Glucose (UA) Urine Ketones Urine Blood Urine Nitrite Urine Bilirubin Urine Urobilinogen Ur Leukocyte Esterase Urine WBC (Auto) Urine RBC (Auto) U Hyaline Cast (Auto) U Epithel Cells (Auto) Urine Bacteria (Auto) COVID-19 Eval Order SARS-CoV-2 (PCR) Influenza Type A (PCR) Influenza Type B (PCR) RSV (RT-PCR) Medications Administered Current Inpatient Medications Acetaminophen (Acetaminophen 325 Mg Tab) 650 mg PO Q4H PRN PRN Reason: Pain or Fever Stop: 04/01/21 03:07 Last Admin: 03/02/21 08:28 Dose: 650 mg Documented by: Apixaban (Apixaban 2.5 Mg Tab) 2.5 mg PO BID [facility] Stop: 04/01/21 08:59 Last Admin: 03/02/21 20:38 Dose: 2.5 mg Documented by: Ascorbic Acid (Ascorbic Acid 500 Mg Tab) 500 mg PO QAM [facility] Stop: 04/01/21 08:59 Last Admin: 03/02/21 08:28 Dose: 500 mg Documented by: Aspirin (Aspirin 81 Mg Ectab) 81 mg PO QAM [facility] Stop: 04/01/21 08:59 Last Admin: 03/02/21 08:28 Dose: 81 mg Documented by: Dextrose (Dextrose 50% 50 Ml Syringe) 25 - 50 ml IV UD PRN; Protocol PRN Reason: Hypoglycemia Protocol Stop: 04/01/21 03:07 Diclofenac Sodium (Diclofenac Sod 1% Gel 100 Gm Tube) 2 gm EXT HS [facility] Stop: 04/01/21 20:59 Last Admin: 03/02/21 20:37 Dose: 2 gm Documented by: Donepezil HCl (Donepezil Hcl 10 Mg Tab) 10 mg PO QAM [facility] Stop: 04/01/21 08:59 Last Admin: 03/02/21 08:28 Dose: 10 mg Documented by: Fish Oil ([place]-3 (Purified Fish Oil) 1 Gm Cap) 1 gm PO QAM [facility] Stop: 04/01/21 08:59 Last Admin: 03/02/21 08:28 Dose: 1 gm Documented by: Glucagon (Glucagon For Inj 1 Mg Vial) 1 mg SQ UD PRN; Protocol PRN Reason: Hypoglycemia Protocol Stop: 04/01/21 03:07 Glucose (Glucose 10 Tabs/Tube) 4 - 8 tabs PO UD PRN; Protocol PRN Reason: Hypoglycemia Protocol Stop: 04/01/21 03:07 Glucose (Glucose 40% Gel 15 Gm Tube) 15 - 30 gm PO UD PRN; Protocol PRN Reason: Hypoglycemia Protocol Stop: 04/01/21 03:07 Insulin Aspart (Insulin Aspart 100 Units/Ml 3 Ml Pen) 0 units SC ACHS [facility] Stop: 04/01/21 07:29 Last Admin: 03/02/21 20:47 Dose: 3 units Documented by: Insulin Glargine (Insulin Glargine Solostar 100 Units/Ml 3 Ml Pen) 26 units SC QAM [facility] Stop: 04/02/21 08:59 Lidocaine (Lidocaine 5% 1 Patch) 1 patch TD [facility] Stop: 04/01/21 08:59 Last Admin: 03/02/21 08:28 Dose: 1 patch Documented by: Lisinopril (Lisinopril 10 Mg Tab) [facility] Stop: 04/01/21 08:59 Last Admin: 03/02/21 08:28 Dose: 10 mg Documented by: Metoprolol Succinate (Metoprolol Succ 25mg Ext Rel Tab) 25 mg PO [facility] Stop: 04/01/21 08:59 Last Admin: 03/02/21 08:28 Dose: 25 mg Documented by: Miscellaneous (Remove Lidoderm Patch) 1 ea N/A DAILY@2100 [facility] Stop: 04/01/21 20:59 Last Admin: 03/02/21 20:37 Dose: 1 ea Documented by: Miscellaneous (Carbohydrates For Hypoglycemia ) 15 - 30 gm PO UD PRN PRN Reason: Hypoglycemia Protocol Stop: 04/01/21 03:07 Miscellaneous Information (Pharmacy Glycemic Mgmt Consult) 1 ea N/A UD PRN PRN Reason: Consult Stop: 04/01/21 07:55 Ondansetron HCl (Ondansetron Inj 2 Mg/Ml 2 Ml Vial) 4 mg IV Q6H PRN PRN Reason: Nausea Stop: 04/01/21 03:07 Pantoprazole Sodium (Pantoprazole 40 Mg Tab) 40 mg PO [facility] Stop: 04/01/21 08:59 Last Admin: 03/02/21 08:28 Dose: 40 mg Documented by: Rosuvastatin Calcium (Rosuvastatin Calcium 20 Mg Tab) 40 mg PO [facility] Stop: 04/01/21 08:59 Last Admin: 03/02/21 08:28 Dose: 40 mg Documented by: Tramadol HCl (Tramadol Hcl 50 Mg Tablet) 50 mg PO Q4H PRN PRN Reason: Moderate Pain Stop: 04/01/21 03:07 Vitamin B Complex (Vitamin B Complex Tab) 1 tab PO [facility] Stop: 04/01/21 08:59 Last Admin: 03/02/21 08:28 Dose: 1 tab Documented by: Vitamin D (Cholecalciferol 1,000 Units 25 Mcg Tab) 1,000 units PO [facility] Stop: 04/01/21 08:59 Last Admin: 03/02/21 08:28 Dose: 1,000 units Documented by: PG Care Time/CCT Total # of Minutes Spent Total Time Spent: 35 Total Time Spent with Patient: Total time spent is greater than 50% in coordination of care (as documented) at patient's floor/unit and/or counseling patient: 5 minutes discussion options with glycemic pharmacist 15 minutes combined talking with both sons 15 minutes on exam, reviewing records, documentation Prolonged Care Time Prolonged Care Time: No Coding Level of Care Code 43733 Subseq Hosp Care Lvl 3 Diagnoses Hyperglycemia due to type 2 diabetes mellitus E11.65 Dietary noncompliance Z91.11 Paroxysmal atrial fibrillation I48.0 Presence of stent in LAD coronary artery Z95.5 Mild dementia F03.90 Closed rib fracture S22.42XA Encounter type: initial encounter Laterality: left Rib fracture type: multiple ribs (1) Closed rib fracture Encounter type: initial encounter Laterality: left Rib fracture type: multiple ribs Qualified Code(s): S22.42XA - Multiple fractures of ribs, left side, initial encounter for closed fracture
[2021-03-03] MEDS: traMADol HCL 50 MG TABLET PO PRN ×2 (02:21→08:28)
[2021-03-03 08:09] LABS: Basophils # (auto) 0.01 K/uL (0-0.2); Basophils % (auto) 0.2 %; Eosinophils # (auto) 0.06 K/uL (0-0.5); Eosinophils % (auto) 1.2 %; Hematocrit (blood only) 35.7 % (42-52); Hemoglobin 12.6 g/dL (14.0-18.0); Immature Granulocytes # (auto) 0.01 K/uL (0.00-0.02); Immature Granulocytes % (auto) 0.2 %; Lymphocytes # (auto) 0.96 K/uL (1.2-3.4); Lymphocytes % (auto) 18.8 %; Mean Corpuscular Hemoglobin 33.3 pg (25-34); Mean Corpuscular Hgb Conc 35.3 g/dL (32-36); Mean Corpuscular Volume 94.4 fL (80-100); Mean Platelet Volume 9.6 fL (7.4-10.4); Monocytes # (auto) 0.64 K/uL (0.11-0.59); Monocytes % (auto) 12.5 %; Neutrophils # (auto) 3.43 K/uL (1.4-6.5); Neutrophils % (auto) 67.1 %; Platelet Count 139 K/uL (130-400); RDW Coefficient of Variation 13.1 % (11.5-14.5); RDW Standard Deviation 45.1 fL (36.4-46.3); Red Blood Count 3.78 M/uL (4.7-6.1); White Blood Count 5.11 K/uL (4.8-10.8)
[2021-03-03] MEDS: LIDOCAINE 5% 1 PATCH TD SCH (08:16)
[2021-03-03] MEDS: APIXABAN 2.5 MG TAB PO SCH ×2 (08:17→20:41)
[2021-03-03] MEDS: lisinopril 10 MG TAB PO SCH (08:17)
[2021-03-03] MEDS: DONEPEZIL HCL 10 MG TAB PO SCH (08:17)
[2021-03-03] MEDS: VITAMIN B COMPLEX TAB PO SCH (08:17)
[2021-03-03] MEDS: OMEGA-3 (PURIFIED FISH OIL) 1 GM CAP PO SCH (08:17)
[2021-03-03] MEDS: ROSUVASTATIN CALCIUM 20 MG TAB PO SCH (08:17)
[2021-03-03] MEDS: PANTOprazole 40 MG TAB PO SCH (08:18)
[2021-03-03] MEDS: METOPROLOL SUCC 25MG EXT REL TAB PO SCH (08:18)
[2021-03-03] MEDS: ASCORBIC ACID 500 MG TAB PO SCH (08:18)
[2021-03-03] MEDS: CHOLECALCIFEROL 1,000 UNITS 25 MCG TAB PO SCH (08:18)
[2021-03-03] MEDS: INSULIN ASPART 100 UNITS/ML 3 ML PEN SC SCH ×4 (08:18→20:42)
[2021-03-03] MEDS: ASPIRIN 81 MG ECTAB PO SCH (08:18)
[2021-03-03 08:28] LABS: Albumin Level 3.1 gm/dl (3.4-5.0); BUN Creatinine Ratio 24.9 (10-20); Creatinine Clr Calc Pharmacy 78.6 ml/min; Est GFR (African American) 96.4; Est GFR (Non-African American) 83.2; Phosphorus 2.9 mg/dl (2.5-4.9)
[2021-03-03] MEDS: INSULIN GLARGINE SOLOSTAR 100 UNITS/ML 3 ML PEN SC SCH (08:29)
[2021-03-03] MEDS ORDERED: INSULIN GLARGINE SOLOSTAR 100 UNITS/ML 3 ML PEN SC SCH (09:00)
--- NOTE | 2021-03-03 12:33 | Hospitalist Progress Note ---
Date of Service March 03, 2021 Assessment & Plan (1) Hyperglycemia due to type 2 diabetes mellitus: Hyperglycemia due to diabetes mellitus type 2/dietary noncompliance- Patient's blood sugar shot up to over 400 after he went home from be discharged to the hospital and ate inappropriate foods. His sugars already improving with administration of insulin in ED, and with adequate hydration. plan to use Lantus and Novolog SS while admitted, correction factor 25 and carb ratio of 10 should be able to continue this plan at a SNF rehab if we can get approval increase basal insulin to 30 from 26 for home, could likely use a higher dose of basal with addition of GLP-1 inhibitor pharmacy exploring cost, options plan for SNF rehab on discharge, could help manage sugars for a week until he has a stable regimen (2) Dietary noncompliance: See above (3) Paroxysmal atrial fibrillation: Paroxysmal atrial fibrillation/hypertension/LAD stent- Continue apixaban, aspirin, lisinopril, metoprolol succinate and rosuvastatin heart rate stable, downgrade to medical status (4) Presence of stent in LAD coronary artery: See above (5) Mild dementia: Continue aspirin, donepezil and fish oil (6) Closed rib fracture: For closed rib fractures left 7 through 10- Patient reports pain is well controlled with lidocaine patch during the day and Voltaren gel at nighttime can use Tylenol and Ultram PRN PT/OT ordered Admission and Anticipated Discharge Date Admission Date: March 02, 2021 Subjective patient doing well, says his left rib pain is better today no dyspnea, no cough, no fever, no GI symptoms sugars are reasonably controlled, increased basal dose to 30 from 26 CM placing referral to [facility] still awaiting formal PT/OT consults will move to third floor today Review of Systems Review of Systems: All systems reviewed & are unremarkable except as noted in Subjective Constitutional: no fever, no fatigue and no weakness Respiratory: no cough and no dyspnea Cardiovascular: + chest pain (left sided, rib pain due to fracturs); no dyspnea Gastrointestinal: no abdominal pain, no nausea, no vomiting, no constipation and no diarrhea/loose stools Physical Exam Constitutional: WD/WN, vitals as above Neck: trachea midline, no thyromegaly Respiratory: normal respiratory effort, lungs clear to auscultation Cardiovascular: RRR, no murmur, no edema Chest (Breasts): Chest: normal inspection of chest (left sided rib pain on palpation) Gastrointestinal (Abdomen): normal bowel sounds, soft, nontender, no hepatosplenomegaly Musculoskeletal: no cyanosis or clubbing, extremities motor strength 5/5 Skin: no rashes, warm and dry Neurologic: patellar DTR's 2+ bilat, sensation intact and PERRL, EOMI, acco mmodation nl, no face palsy, no dysarthria Psychiatric: A+Ox3, euthymic affect Lymphatic: no cervical or axillary lymphadenopathy Results & Data Results & Data ([facility]) Vital Signs (Past 12 Hours) Vital Signs BP 03/03/21 09:38 148/88 H Laboratory Results Laboratory Results - last 24 hr 03/02/21 03/02/21 03/03/21 16:40 20:39 07:32 WBC 5.11 RBC 3.78 L Hgb 12.6 L Hct 35.7 L MCV 94.4 MCH 33.3 MCHC 35.3 RDW Std Deviation 45.1 RDW Coeff of Anaid 13.1 Plt Count 139 MPV 9.6 Immature Gran % (Auto) 0.2 Neut % (Auto) 67.1 Lymph % (Auto) 18.8 [place] % (Auto) 12.5 Eos % (Auto) 1.2 Baso % (Auto) 0.2 Neut # (Auto) 3.43 Lymph # (Auto) 0.96 L [place] # (Auto) 0.64 H Eos # (Auto) 0.06 Baso # (Auto) 0.01 Immature Gran # (Auto) 0.01 Sodium Potassium Chloride Carbon Dioxide Anion Gap BUN Creatinine Est Cr Clr Drug Dosing Est GFR ( Amer) Est GFR (Non-Af Amer) BUN/Creatinine Ratio Glucose POC Glucose 99 218 H Calcium Phosphorus Albumin 03/03/21 03/03/21 03/03/21 07:32 07:40 08:39 WBC RBC Hgb Hct MCV MCH MCHC RDW Std Deviation RDW Coeff of Anaid Plt Count MPV Immature Gran % (Auto) Neut % (Auto) Lymph % (Auto) [place] % (Auto) Eos % (Auto) Baso % (Auto) Neut # (Auto) Lymph # (Auto) [place] # (Auto) Eos # (Auto) Baso # (Auto) Immature Gran # (Auto) Sodium 135 L Potassium 3.7 D Chloride 103 Carbon Dioxide 26 Anion Gap 6.0 BUN 19 H Creatinine 0.76 Est Cr Clr Drug Dosing 78.6 Est GFR ( Amer) 96.4 Est GFR (Non-Af Amer) 83.2 BUN/Creatinine Ratio 24.9 H Glucose 191 H POC Glucose 193 H Calcium 9.0 Phosphorus 2.9 Albumin 3.1 L 03/03/21 11:00 WBC RBC Hgb Hct MCV MCH MCHC RDW Std Deviation RDW Coeff of Anaid Plt Count MPV Immature Gran % (Auto) Neut % (Auto) Lymph % (Auto) [place] % (Auto) Eos % (Auto) Baso % (Auto) Neut # (Auto) Lymph # (Auto) [place] # (Auto) Eos # (Auto) Baso # (Auto) Immature Gran # (Auto) Sodium Potassium Chloride Carbon Dioxide Anion Gap BUN Creatinine Est Cr Clr Drug Dosing Est GFR ( Amer) Est GFR (Non-Af Amer) BUN/Creatinine Ratio Glucose POC Glucose 284 H Calcium Phosphorus Albumin Medications Administered Current Inpatient Medications Acetaminophen (Acetaminophen 325 Mg Tab) 650 mg PO Q4H PRN PRN Reason: Pain or Fever Stop: 04/01/21 03:07 Last Admin: 03/02/21 08:28 Dose: 650 mg Documented by: Apixaban (Apixaban 2.5 Mg Tab) 2.5 mg PO BID [facility] Stop: 04/01/21 08:59 Last Admin: 03/03/21 08:17 Dose: 2.5 mg Documented by: Ascorbic Acid (Ascorbic Acid 500 Mg Tab) [facility] Stop: 04/01/21 08:59 Last Admin: 03/03/21 08:18 Dose: 500 mg Documented by: Aspirin (Aspirin 81 Mg Ectab) 81 mg PO QAM [facility] Stop: 04/01/21 08:59 Last Admin: 03/03/21 08:18 Dose: 81 mg Documented by: Dextrose (Dextrose 50% 50 Ml Syringe) 25 - 50 ml IV UD PRN; Protocol PRN Reason: Hypoglycemia Protocol Stop: 04/01/21 03:07 Diclofenac Sodium (Diclofenac Sod 1% Gel 100 Gm Tube) 2 gm EXT HS [facility] Stop: 04/01/21 20:59 Last Admin: 03/02/21 20:37 Dose: 2 gm Documented by: Donepezil HCl (Donepezil Hcl 10 Mg Tab) 10 mg PO QAM [facility] Stop: 04/01/21 08:59 Last Admin: 03/03/21 08:17 Dose: 10 mg Documented by: Fish Oil ([place]-3 (Purified Fish Oil) 1 Gm Cap) 1 [facility] [place] Stop: 04/01/21 08:59 Last Admin: 03/03/21 08:17 Dose: 1 gm Documented by: Glucagon (Glucagon For Inj 1 Mg Vial) 1 mg SQ UD PRN; Protocol PRN Reason: Hypoglycemia Protocol Stop: 04/01/21 03:07 Glucose (Glucose 10 Tabs/Tube) 4 - 8 tabs PO UD PRN; Protocol PRN Reason: Hypoglycemia Protocol Stop: 04/01/21 03:07 Glucose (Glucose 40% Gel 15 Gm Tube) 15 - 30 gm PO UD PRN; Protocol PRN Reason: Hypoglycemia Protocol Stop: 04/01/21 03:07 Insulin Aspart (Insulin Aspart 100 Units/Ml 3 Ml Pen) 0 units SC [facility] Stop: 04/01/21 07:29 Last Admin: 03/03/21 12:17 Dose: 12 units Documented by: Insulin Glargine (Insulin Glargine Solostar 100 Units/Ml 3 Ml Pen) 30 units SC [facility] Stop: 04/02/21 08:59 Last Admin: 03/03/21 08:29 Dose: 30 units Documented by: Lidocaine (Lidocaine 5% 1 Patch) 1 patch TD [facility] Stop: 04/01/21 08:59 Last Admin: 03/03/21 08:16 Dose: 1 patch Documented by: Lisinopril (Lisinopril 10 Mg Tab) 10 mg PO [facility] Stop: 04/01/21 08:59 Last Admin: 03/03/21 08:17 Dose: 10 mg Documented by: Metoprolol Succinate (Metoprolol Succ 25mg Ext Rel Tab) 25 mg PO [facility] Stop: 04/01/21 08:59 Last Admin: 03/03/21 08:18 Dose: 25 mg Documented by: Miscellaneous (Remove Lidoderm Patch) 1 ea N/A DAILY@2100 [facility] Stop: 04/01/21 20:59 Last Admin: 03/02/21 20:37 Dose: 1 ea Documented by: Miscellaneous (Carbohydrates For Hypoglycemia ) 15 - 30 gm PO UD PRN PRN Reason: Hypoglycemia Protocol Stop: 04/01/21 03:07 Miscellaneous Information (Pharmacy Glycemic Mgmt Consult) 1 ea N/A UD PRN PRN Reason: Consult Stop: 04/01/21 07:55 Ondansetron HCl (Ondansetron Inj 2 Mg/Ml 2 Ml Vial) 4 mg IV Q6H PRN PRN Reason: Nausea Stop: 04/01/21 03:07 Pantoprazole Sodium (Pantoprazole 40 Mg Tab) 40 mg PO [facility] Stop: 04/01/21 08:59 Last Admin: 03/03/21 08:18 Dose: 40 mg Documented by: Rosuvastatin Calcium (Rosuvastatin Calcium 20 Mg Tab) 40 mg PO [facility] Stop: 04/01/21 08:59 Last Admin: 03/03/21 08:17 Dose: 40 mg Documented by: Tramadol HCl (Tramadol Hcl 50 Mg Tablet) 50 mg PO Q4H PRN PRN Reason: Moderate Pain Stop: 04/01/21 03:07 Last Admin: 03/03/21 08:28 Dose: 50 mg Documented by: Vitamin B Complex (Vitamin B Complex Tab) 1 tab PO [facility] Stop: 04/01/21 08:59 Last Admin: 03/03/21 08:17 Dose: 1 tab Documented by: Vitamin D (Cholecalciferol 1,000 Units 25 Mcg Tab) 1,000 units PO [facility] Stop: 04/01/21 08:59 Last Admin: 03/03/21 08:18 Dose: 1,000 units Documented by: PG Care Time/CCT Total # of Minutes Spent Total Time Spent with Patient: Total time spent is greater than 50% in coordination of care (as documented) at patient's floor/unit and/or counseling patient: Coding Level of Care Code 75631 Subseq Hosp Care Lvl 2 Diagnoses Hyperglycemia due to type 2 diabetes mellitus E11.65 Dietary noncompliance Z91.11 Paroxysmal atrial fibrillation I48.0 Presence of stent in LAD coronary artery Z95.5 Mild dementia F03.90 Closed rib fracture S22.42XA Encounter type: initial encounter Laterality: left Rib fracture type: multiple ribs (1) Closed rib fracture Encounter type: initial encounter Laterality: left Rib fracture type: multiple ribs Qualified Code(s): S22.42XA - Multiple fractures of ribs, left side, initial encounter for closed fracture
[2021-03-03] MEDS: DICLOFENAC SOD 1% GEL 100 GM TUBE EXT SCH (20:42)
[2021-03-04 06:57] LABS: Eosinophils # (auto) 0.11 K/uL (0-0.5); Eosinophils % (auto) 2.1 %; Hematocrit (blood only) 36.8 % (42-52); Hemoglobin 12.8 g/dL (14.0-18.0); Immature Granulocytes # (auto) 0.01 K/uL (0.00-0.02); Immature Granulocytes % (auto) 0.2 %; Lymphocytes # (auto) 0.79 K/uL (1.2-3.4); Lymphocytes % (auto) 15.1 %; Mean Corpuscular Hemoglobin 32.9 pg (25-34); Mean Corpuscular Hgb Conc 34.8 g/dL (32-36); Mean Corpuscular Volume 94.6 fL (80-100); Mean Platelet Volume 9.1 fL (7.4-10.4); Monocytes % (auto) 11.5 %; Neutrophils # (auto) 3.73 K/uL (1.4-6.5); Neutrophils % (auto) 71.1 %; Platelet Count 129 K/uL (130-400); RDW Coefficient of Variation 13.1 % (11.5-14.5); RDW Standard Deviation 45.2 fL (36.4-46.3); Red Blood Count 3.89 M/uL (4.7-6.1); White Blood Count 5.24 K/uL (4.8-10.8)
[2021-03-04 07:22] LABS: Albumin Level 2.9 gm/dl (3.4-5.0); BUN Creatinine Ratio 25.4 (10-20); Calcium 9.3 mg/dl (8.5-10.1); Creatinine Clr Calc Pharmacy 70.3 ml/min; Est GFR (African American) 92.1; Est GFR (Non-African American) 79.5; Phosphorus 2.7 mg/dl (2.5-4.9)
--- NOTE | 2021-03-04 08:05 | Hospitalist Progress Note ---
Date of Service March 04, 2021 Assessment & Plan (1) Hyperglycemia due to type 2 diabetes mellitus: * Hyperglycemia due to diabetes mellitus type 2/dietary noncompliance- * Patient's blood sugar shot up to over 400 after he went home from be discharged to the hospital and ate inappropriate foods. * His sugars already improving with administration of insulin in ED, and with adequate hydration. * plan to use Lantus and Novolog SS while admitted * correction factor 25 and carb ratio of 10 * should be able to continue this plan at a SNF rehab if we can get approval * increase basal insulin to 30 from 26 * Blood sugars elevated to 377 this afternoon --> pharmacy notified. Got 17units fast acting insulin. Adjustments being made --> to tighten CF this evening as needed * Additional 1L 1/2NSS for today * for home: could likely use a higher dose of basal with addition of GLP-1 inhibitor * pharmacy exploring cost, options --> Trulicity and Bydureon covered. * --> Would utilize Truclicity 0.75mg SQ weekly -- could have home health help with once weekly injections as well given cognitive deficits/ability to administer * plan for SNF rehab on discharge, could help manage sugars for a week until he has a stable regimen (2) Dietary noncompliance: * See above (3) Paroxysmal atrial fibrillation: * Paroxysmal atrial fibrillation/hypertension/LAD stent- * Continue apixaban, aspirin, lisinopril, metoprolol succinate and rosuvastatin * Transferred off telemetry (4) Presence of stent in LAD coronary artery: * See above (5) Mild dementia: * Continue aspirin, donepezil and fish oil (6) Closed rib fracture: * For closed rib fractures left 7 through 10- * Patient reports pain is well controlled with lidocaine patch during the day and Voltaren gel at nighttime * can use Tylenol and Ultram PRN * PT/OT ordered -- recs for SNF Dispo: continued inpatient stay until able to have good glycemic control prior to discharge Admission and Anticipated Discharge Date Admission Date: March 02, 2021 Supervising Physician Co-Signing Physician Notes DELTA Supervision Note: I did not personally see or examine the patient today, but I verified all reynolds points of DELTA Schwartz's assessment and plan with the following exceptions/additions: None Subjective Patient evaluated this afternoon. He did not get symptomatic with his elevated sugars this afternoon -- feels food given is too heavy in carbohydrates. He states when they are high he typically feels it in the backs of his legs like they are going to give out. Discussed once weekly Trulicty once on an appropriate agent -- he is agreeable to starting this when appropriate. No fever, chills, chest pain (outside of rib pain, which is improved from even admission), shortness of breath, abdominal pain, nausea or vomiting. Had been several days without a BM but was able to have one this morning and feeling much better. Discussed rehab - he walked with walker with therapy 60ft x 2 today and is motivated to continue rehab at discharge. Review of Systems 2 Review of Systems: All systems reviewed & are unremarkable except as noted in HPI & below Physical Exam Constitutional: WD/WN, vitals as above Eyes: + anicteric sclerae and PERRL ENMT: mm slightly dry Neck: trachea midline, no thyromegaly Respiratory: normal respiratory effort, lungs clear to auscultation Cardiovascular: RRR, no murmur, no edema Chest (Breasts): Chest: normal inspection of chest (left sided rib pain on palpation, improved) Gastrointestinal (Abdomen): normal bowel sounds, soft, nontender, no hepatosplenomegaly Musculoskeletal: no cyanosis or clubbing, extremities motor strength 5/5 Skin: no rashes, warm and dry Neurologic: patellar DTR's 2+ bilat, sensation intact and PERRL, EOMI, accommodation nl, no face palsy, no dysarthria Psychiatric: A+Ox3, euthymic affect Lymphatic: no cervical or axillary lymphadenopathy Results & Data Results & Data ([facility]) Vital Signs (Past 12 Hours) Vital Signs Temp Pulse Resp BP BP Pulse Ox 03/04/21 07:44 36.9 C 65 16 180/90 H 182/82 H 94 03/03/21 23:05 36.6 C 60 16 174/81 H 96 Laboratory Results 03/04/21 03/04/21 03/03/21 Range/Units 06:47 06:47 20:09 WBC 5.24 (4.8-10.8) K/uL RBC 3.89 L (4.7-6.1) M/uL Hgb 12.8 L (14.0-18.0) g/dL Hct 36.8 L (42-52) % MCV 94.6 (80-100) fL MCH 32.9 (25-34) pg MCHC 34.8 (32-36) g/dL RDW Std Deviation 45.2 (36.4-46.3) fL RDW Coeff of Anaid 13.1 (11.5-14.5) % Plt Count 129 L (130-400) K/uL MPV 9.1 (7.4-10.4) fL Immature Gran % (Auto) 0.2 % Neut % (Auto) 71.1 % Lymph % (Auto) 15.1 % Garza % (Auto) 11.5 % Eos % (Auto) 2.1 % Baso % (Auto) 0.0 % Neut # (Auto) 3.73 (1.4-6.5) K/uL Lymph # (Auto) 0.79 L (1.2-3.4) K/uL Garza # (Auto) 0.60 H (0.11-0.59) K/uL Eos # (Auto) 0.11 (0-0.5) K/uL Baso # (Auto) 0.00 (0-0.2) K/uL Immature Gran # (Auto) 0.01 (0.00-0.02) K/uL Sodium 137 (136-145) mmol/L Potassium 4.0 (3.5-5.1) mmol/L Chloride 103 (98-107) mmol/L Carbon Dioxide 28 (21-32) mmol/L Anion Gap 6.0 (3-11) BUN 22 H (7-18) mg/dl Creatinine 0.85 (0.6-1.4) mg/dl Est Cr Clr Drug Dosing 70.3 ml/min Est GFR ( Amer) 92.1 Est GFR (Non-Af Amer) 79.5 BUN/Creatinine Ratio 25.4 H (10-20) Glucose 162 H (70-99) mg/dl POC Glucose 249 H (70-99) mg/dl Calcium 9.3 (8.5-10.1) mg/dl Phosphorus 2.7 (2.5-4.9) mg/dl Albumin 2.9 L (3.4-5.0) gm/dl 04/18/21 04/18/21 04/18/21 Range/Units 17:24 11:00 08:39 WBC (4.8-10.8) K/uL RBC (4.7-6.1) M/uL Hgb (14.0-18.0) g/dL Hct (42-52) % MCV (80-100) fL MCH (25-34) pg MCHC (32-36) g/dL RDW Std Deviation (36.4-46.3) fL RDW Coeff of Anaid (11.5-14.5) % Plt Count (130-400) K/uL MPV (7.4-10.4) fL Immature Gran % (Auto) % Neut % (Auto) % Lymph % (Auto) % Garza % (Auto) % Eos % (Auto) % Baso % (Auto) % Neut # (Auto) (1.4-6.5) K/uL Lymph # (Auto) (1.2-3.4) K/uL Garza # (Auto) (0.11-0.59) K/uL Eos # (Auto) (0-0.5) K/uL Baso # (Auto) (0-0.2) K/uL Immature Gran # (Auto) (0.00-0.02) K/uL Sodium (136-145) mmol/L Potassium 3.7 D (3.5-5.1) mmol/L Chloride (98-107) mmol/L Carbon Dioxide (21-32) mmol/L Anion Gap (3-11) BUN (7-18) mg/dl Creatinine (0.6-1.4) mg/dl Est Cr Clr Drug Dosing ml/min Est GFR ( Amer) Est GFR (Non-Af Amer) BUN/Creatinine Ratio (10-20) Glucose (70-99) mg/dl POC Glucose 208 H 284 H (70-99) mg/dl Calcium (8.5-10.1) mg/dl Phosphorus (2.5-4.9) mg/dl Albumin (3.4-5.0) gm/dl 21 03/03/21 Range/Units 07:32 07:32 WBC 5.11 (4.8-10.8) K/uL RBC 3.78 L (4.7-6.1) M/uL Hgb 12.6 L (14.0-18.0) g/dL Hct 35.7 L (42-52) % MCV 94.4 (80-100) fL MCH 33.3 (25-34) pg MCHC 35.3 (32-36) g/dL RDW Std Deviation 45.1 (36.4-46.3) fL RDW Coeff of Anaid 13.1 (11.5-14.5) % Plt Count 139 (130-400) K/uL MPV 9.6 (7.4-10.4) fL Immature Gran % (Auto) 0.2 % Neut % (Auto) 67.1 % Lymph % (Auto) 18.8 % Garza % (Auto) 12.5 % Eos % (Auto) 1.2 % Baso % (Auto) 0.2 % Neut # (Auto) 3.43 (1.4-6.5) K/uL Lymph # (Auto) 0.96 L (1.2-3.4) K/uL Garza # (Auto) 0.64 H (0.11-0.59) K/uL Eos # (Auto) 0.06 (0-0.5) K/uL Baso # (Auto) 0.01 (0-0.2) K/uL Immature Gran # (Auto) 0.01 (0.00-0.02) K/uL Sodium 135 L (136-145) mmol/L Potassium (3.5-5.1) mmol/L Chloride 103 (98-107) mmol/L Carbon Dioxide 26 (21-32) mmol/L Anion Gap 6.0 (3-11) BUN 19 H (7-18) mg/dl Creatinine 0.76 (0.6-1.4) mg/dl Est Cr Clr Drug Dosing 78.6 ml/min Est GFR ( Amer) 96.4 Est GFR (Non-Af Amer) 83.2 BUN/Creatinine Ratio 24.9 H (10-20) Glucose 191 H (70-99) mg/dl POC Glucose (70-99) mg/dl Calcium 9.0 (8.5-10.1) mg/dl Phosphorus 2.9 (2.5-4.9) mg/dl Albumin 3.1 L (3.4-5.0) gm/dl PG Care Time/CCT Total # of Minutes Spent Total Time Spent with Patient: Total time spent is greater than 50% in coordination of care (as documented) at patient's floor/unit and/or counseling patient: Coding Level of Care Code 04112 Subseq Hosp Care Lvl 3 Diagnoses Hyperglycemia due to type 2 diabetes mellitus E11.65 Dietary noncompliance Z91.11 Paroxysmal atrial fibrillation I48.0 Presence of stent in LAD coronary artery Z95.5 Mild dementia F03.90 Closed rib fracture S22.42XA Encounter type: initial encounter Laterality: left Rib fracture type: multiple ribs (1) Closed rib fracture Encounter type: initial encounter Laterality: left Rib fracture type: multiple ribs Qualified Code(s): S22.42XA - Multiple fractures of ribs, left side, initial encounter for closed fracture
[2021-03-04] MEDS: LIDOCAINE 5% 1 PATCH TD SCH (09:09)
[2021-03-04] MEDS: ROSUVASTATIN CALCIUM 20 MG TAB PO SCH (09:10)
[2021-03-04] MEDS: APIXABAN 2.5 MG TAB PO SCH ×2 (09:10→20:36)
[2021-03-04] MEDS: ASPIRIN 81 MG ECTAB PO SCH (09:10)
[2021-03-04] MEDS: DONEPEZIL HCL 10 MG TAB PO SCH (09:10)
[2021-03-04] MEDS: PANTOprazole 40 MG TAB PO SCH (09:11)
[2021-03-04] MEDS: CHOLECALCIFEROL 1,000 UNITS 25 MCG TAB PO SCH (09:11)
[2021-03-04] MEDS: OMEGA-3 (PURIFIED FISH OIL) 1 GM CAP PO SCH (09:11)
[2021-03-04] MEDS: VITAMIN B COMPLEX TAB PO SCH (09:11)
[2021-03-04] MEDS: lisinopril 10 MG TAB PO SCH (09:11)
[2021-03-04] MEDS: METOPROLOL SUCC 25MG EXT REL TAB PO SCH (09:11)
[2021-03-04] MEDS: ASCORBIC ACID 500 MG TAB PO SCH (09:11)
[2021-03-04] MEDS: INSULIN GLARGINE SOLOSTAR 100 UNITS/ML 3 ML PEN SC SCH (09:14)
[2021-03-04] MEDS: INSULIN ASPART 100 UNITS/ML 3 ML PEN SC SCH ×4 (09:15→21:50)
--- NOTE | 2021-03-04 09:30 | Pharmacy Report ---
Pharmacy Glycemic Short Note 2 - Date of Service March 04, 2021 - Glycemic Short BSG Results (Last 24 hours): 03/03/21 03/03/21 03/03/21 11:00 17:24 20:09 Glucose POC Glucose 284 H 208 H 249 H 03/04/21 03/04/21 06:47 08:19 Glucose 162 H POC Glucose 159 H OUTPATIENT ANTIDIABETIC REGIMEN: * Insulin Degludec (Tresiba) 26 units SQ AM * A1c = 10.1% on 02/28/21 ASSESSMENT: 03/04: * Mr. Quach received a total of 61 units of insulin yesterday * 30 units basal + 31 units bolus * BSGs were: [phone] mg/dL, uncontrolled * Fasting BSG was 159 mg/dL this AM, improved * Continue with 30 units of basal insulin today * Postprandial hyperglycemia was noted over the last 24 hours and patient is eating well * Tightened both correction factor and carb ratio today * Lunch BSG was significantly elevated at 343 mg/dL with a repeat of 377 mg/dL. * No snacking in between meals. Not going to adjust carb ratio at this time as patient has trended high with lunch on most days of this admission. The refore, will plan to tighten CF/CR with breakfast tomorrow morning. * If dinner BSG is elevated, will have second shift pharmacist tighten CR. 03/02: * 85yo T2DM admitted for hyperglycemia resulting from "inappropriate foods." * Hyperglycemia resolved quickly with fluids and IV insulin boluses in ED. * Pt just dc from [facility] on 02/28/21 - will continue similar regimen from this admission. * Pt will need bolus insulin on discharge to combat rebound hyperglycemia from high CHO foods. PLAN FOR INPATIENT GLYCEMIC CONTROL: * Basal insulin - no change * Lantus 30 units SC AM * Bolus insulin - tightened CF/CR * NovoLog per scale ACHS or Q6hrs while NPO * Goal Range: Low 100 mg/dL - High 150 mg/dL * Correction Factor: 25 mg/dL/unit * Nutritional / Prandial insulin per carb ratio of 1 unit per 8 grams CHO consumed * Starting 03/05: CF = 20 mg/dL/unit and CR = 1 unit per 6 grams CHO w/ breakfast only PLAN FOR DISCHARGE: * A1c = 10.1 % on 4/15/21 * Goal A1c = 8-9% based on age and comorbidities * Recommend increasing insulin degludec (Tresiba) to 30 units SQ AM * Recommend adding bolus insulin with NovoLog/Regular (exact rapid acting insulin TBD based on insurance coverage) with high CHO meals and PRN hyperglycemia. * Meal time coverage = 5 units of rapid acting insulin with high CHO meals + Additional SSI for hyperglycemia * Could consider the following "low dose SSI" (CF ~ 25mg/dl/unit) * Blood Sugar 151-200 administer 1 units * Blood Sugar 201-250 administer 3 units * Blood Sugar 251-300 administer 5 units * Blood Sugar 301-350 administer 7 units * Blood Sugar 351-400 administer 9 units * Blood Sugar >400 administer 11 units and call
[2021-03-04] MEDS ORDERED: POTASSIUM CHLORIDE 20 MEQ in SODIUM CHLORIDE 0.45 % 1,000 ML IV SCH (14:45)
[2021-03-04] MEDS ORDERED: SODIUM CHLOR 0.45% + 20MEQ KCL 20 MEQ/1,000 ML BAG IV SCH (15:00)
[2021-03-04] MEDS: DICLOFENAC SOD 1% GEL 100 GM TUBE EXT SCH (20:35)
[2021-03-05] MEDS: DONEPEZIL HCL 10 MG TAB PO SCH (08:11)
[2021-03-05] MEDS: METOPROLOL SUCC 25MG EXT REL TAB PO SCH (08:11)
[2021-03-05] MEDS: ASPIRIN 81 MG ECTAB PO SCH (08:11)
[2021-03-05] MEDS: OMEGA-3 (PURIFIED FISH OIL) 1 GM CAP PO SCH (08:12)
[2021-03-05] MEDS: VITAMIN B COMPLEX TAB PO SCH (08:12)
[2021-03-05] MEDS: ASCORBIC ACID 500 MG TAB PO SCH (08:12)
[2021-03-05] MEDS: ROSUVASTATIN CALCIUM 20 MG TAB PO SCH (08:12)
[2021-03-05] MEDS: APIXABAN 2.5 MG TAB PO SCH (08:13)
[2021-03-05] MEDS: PANTOprazole 40 MG TAB PO SCH (08:13)
[2021-03-05] MEDS: CHOLECALCIFEROL 1,000 UNITS 25 MCG TAB PO SCH (08:13)
[2021-03-05] MEDS: lisinopril 10 MG TAB PO SCH (08:14)
[2021-03-05] MEDS: LIDOCAINE 5% 1 PATCH TD SCH (08:20)
[2021-03-05 08:24] LABS: Hematocrit (blood only) 38.2 % (42-52); Hemoglobin 13.5 g/dL (14.0-18.0); Mean Corpuscular Hgb Conc 35.3 g/dL (32-36); Mean Corpuscular Volume 93.4 fL (80-100); Mean Platelet Volume 8.9 fL (7.4-10.4); Platelet Count 143 K/uL (130-400); RDW Coefficient of Variation 12.9 % (11.5-14.5); RDW Standard Deviation 44.5 fL (36.4-46.3); Red Blood Count 4.09 M/uL (4.7-6.1); White Blood Count 5.94 K/uL (4.8-10.8)
[2021-03-05 08:55] LABS: BUN Creatinine Ratio 18.6 (10-20); Calcium 9.6 mg/dl (8.5-10.1); Creatinine Clr Calc Pharmacy 78.6 ml/min; Est GFR (African American) 96.4; Est GFR (Non-African American) 83.2; Potassium 3.8 mmol/L (3.5-5.1)
[2021-03-05] MEDS: INSULIN GLARGINE SOLOSTAR 100 UNITS/ML 3 ML PEN SC SCH (08:57)
[2021-03-05] MEDS: INSULIN ASPART 100 UNITS/ML 3 ML PEN SC SCH ×2 (08:59→13:12)
--- NOTE | 2021-03-05 08:59 | Hospitalist Progress Note ---
Date of Service March 05, 2021 Assessment & Plan (1) Hyperglycemia due to type 2 diabetes mellitus: * Hyperglycemia due to diabetes mellitus type 2/dietary noncompliance- * Patient's blood sugar shot up to over 400 after he went home from be discharged to the hospital and ate inappropriate foods. * His sugars already improving with administration of insulin in ED, and with adequate hydration. * plan to use Lantus and Novolog SS while admitted * correction factor 25 and carb ratio of 10 * should be able to continue this plan at a SNF rehab if we can get approval * increase basal insulin to 30 from 26 * Blood sugars elevated to 377 this afternoon --> pharmacy notified. Got 17units fast acting insulin. Adjustments being made --> to tighten CF this evening as needed * Additional 1L 1/2NSS for today * for home: could likely use a higher dose of basal with addition of GLP-1 inhibitor * pharmacy exploring cost, options --> Trulicity and Bydureon covered. * --> Would utilize Truclicity 0.75mg SQ weekly -- could have home health help with once weekly injections as well given cognitive deficits/ability to administer * plan for SNF rehab on discharge, could help manage sugars for a week until he has a stable regimen (2) Dietary noncompliance: * See above (3) Paroxysmal atrial fibrillation: * Paroxysmal atrial fibrillation/hypertension/LAD stent- * Continue apixaban, aspirin, lisinopril, metoprolol succinate and rosuvastatin * Transferred off telemetry (4) Presence of stent in LAD coronary artery: * See above (5) Mild dementia: * Continue aspirin, donepezil and fish oil (6) Closed rib fracture: * For closed rib fractures left 7 through 10- * Patient reports pain is well controlled with lidocaine patch during the day and Voltaren gel at nighttime * can use Tylenol and Ultram PRN * PT/OT ordered -- recs for SNF Dispo: continued inpatient stay until able to have good glycemic control prior to discharge Admission and Anticipated Discharge Date Admission Date: March 02, 2021 Results & Data Results & Data ([facility]) Vital Signs (Past 12 Hours) Vital Signs Temp Pulse Resp BP Pulse Ox 03/05/21 08:03 37.0 C 66 16 181/87 H 94 03/04/21 22:15 36.5 C 75 16 170/84 H 95 Laboratory Results 03/05/21 03/05/21 03/05/21 Range/Units 08:12 08:12 08:12 WBC 5.94 (4.8-10.8) K/uL RBC 4.09 L (4.7-6.1) M/uL Hgb 13.5 L (14.0-18.0) g/dL Hct 38.2 L (42-52) % MCV 93.4 (80-100) fL MCH 33.0 (25-34) pg MCHC 35.3 (32-36) g/dL RDW Std Deviation 44.5 (36.4-46.3) fL RDW Coeff of Aanid 12.9 (11.5-14.5) % Plt Count 143 (130-400) K/uL MPV 8.9 (7.4-10.4) fL Sodium 137 (136-145) mmol/L Potassium 3.8 (3.5-5.1) mmol/L Chloride 103 (98-107) mmol/L Carbon Dioxide 28 (21-32) mmol/L Anion Gap 6.0 (3-11) BUN 14 (7-18) mg/dl Creatinine 0.76 (0.6-1.4) mg/dl Est Cr Clr Drug Dosing 78.6 ml/min Est GFR ( Amer) 96.4 Est GFR (Non-Af Amer) 83.2 BUN/Creatinine Ratio 18.6 (10-20) Glucose 123 H (70-99) mg/dl POC Glucose 126 H (70-99) mg/dl Calcium 9.6 (8.5-10.1) mg/dl 03/04/21 03/04/21 03/04/21 Range/Units 20:36 17:20 12:15 WBC (4.8-10.8) K/uL RBC (4.7-6.1) M/uL Hgb (14.0-18.0) g/dL Hct (42-52) % MCV (80-100) fL MCH (25-34) pg MCHC (32-36) g/dL RDW Std Deviation (36.4-46.3) fL RDW Coeff of Anaid (11.5-14.5) % Plt Count (130-400) K/uL MPV (7.4-10.4) fL Sodium (136-145) mmol/L Potassium (3.5-5.1) mmol/L Chloride (98-107) mmol/L Carbon Dioxide (21-32) mmol/L Anion Gap (3-11) BUN (7-18) mg/dl Creatinine (0.6-1.4) mg/dl Est Cr Clr Drug Dosing ml/min Est GFR ( Amer) Est GFR (Non-Af Amer) BUN/Creatinine Ratio (10-20) Glucose (70-99) mg/dl POC Glucose 103 H 119 H 377 H* (70-99) mg/dl Calcium (8.5-10.1) mg/dl 03/04/21 Range/Units 12:14 WBC (4.8-10.8) K/uL RBC (4.7-6.1) M/uL Hgb (14.0-18.0) g/dL Hct (42-52) % MCV (80-100) fL MCH (25-34) pg MCHC (32-36) g/dL RDW Std Deviation (36.4-46.3) fL RDW Coeff of Anaid (11.5-14.5) % Plt Count (130-400) K/uL MPV (7.4-10.4) fL Sodium (136-145) mmol/L Potassium (3.5-5.1) mmol/L Chloride (98-107) mmol/L Carbon Dioxide (21-32) mmol/L Anion Gap (3-11) BUN (7-18) mg/dl Creatinine (0.6-1.4) mg/dl Est Cr Clr Drug Dosing ml/min Est GFR ( Amer) Est GFR (Non-Af Amer) BUN/Creatinine Ratio (10-20) Glucose (70-99) mg/dl POC Glucose 343 H* (70-99) mg/dl Calcium (8.5-10.1) mg/dl PG Care Time/CCT Total # of Minutes Spent Total Time Spent with Patient: Total time spent is greater than 50% in coordination of care (as documented) at patient's floor/unit and/or counseling patient: Coding Diagnoses Hyperglycemia due to type 2 diabetes mellitus E11.65 Dietary noncompliance Z91.11 Paroxysmal atrial fibrillation I48.0 Presence of stent in LAD coronary artery Z95.5 Mild dementia F03.90 Closed rib fracture S22.42XA Encounter type: initial encounter Laterality: left Rib fracture type: multiple ribs (1) Closed rib fracture Encounter type: initial encounter Laterality: left Rib fracture type: multiple ribs Qualified Code(s): S22.42XA - Multiple fractures of ribs, left side, initial encounter for closed fracture
--- NOTE | 2021-03-05 09:22 | Pharmacy Report ---
Pharmacy Glycemic Short Note 2 - Date of Service March 05, 2021 - Glycemic Short BSG Results (Last 24 hours): 03/04/21 03/04/21 03/04/21 12:14 12:15 17:20 Glucose POC Glucose 343 H* 377 H* 119 H 03/04/21 03/05/21 03/05/21 20:36 08:12 08:12 Glucose 123 H POC Glucose 103 H 126 H OUTPATIENT ANTIDIABETIC REGIMEN: * Insulin Degludec (Tresiba) 26 units SQ AM * A1c = 10.1% on 02/28/21 ASSESSMENT: 03/05: * Patient received a total of 57 units of insulin yesterday * 30 units basal + 27 units bolus * BSGs were: [phone] mg/dL * Spoke with primary team after hyperglycemia was noted at lunchtime * Decided to tighten CF/CR prior to dinner last night * Fasting BSG was 126 mg/dL this AM, well controlled * No change in basal insulin 03/04: * Mr. Quach received a total of 61 units of insulin yesterday * 30 units basal + 31 units bolus * BSGs were: [phone] mg/dL, uncontrolled * Fasting BSG was 159 mg/dL this AM, improved * Continue with 30 units of basal insulin today * Postprandial hyperglycemia was noted over the last 24 hours and patient is eating well * Tightened both correction factor and carb ratio today * Lunch BSG was significantly elevated at 343 mg/dL with a repeat of 377 mg/dL. * No snacking in between meals. Not going to adjust carb ratio at this time as patient has trended high with lunch on most days of this admission. Therefore, will plan to tighten CF/CR with breakfast tomorrow morning. * If dinner BSG is elevated, will have second shift pharmacist tighten CR. 03/02: * 85yo T2DM admitted for hyperglycemia resulting from "inappropriate foods." * Hyperglycemia resolved quickly with fluids and IV insulin boluses in ED. * Pt just dc from [facility] on 02/28/21 - will continue similar regimen from this admission. * Pt will need bolus insulin on discharge to combat rebound hyperglycemia from high CHO foods. PLAN FOR INPATIENT GLYCEMIC CONTROL: * Basal insulin - no change * Lantus 30 units SC AM * Bolus insulin - tightened CF/CR * NovoLog per scale ACHS or Q6hrs while NPO * Goal Range: Low 100 mg/dL - High 150 mg/dL * Correction Factor: 20 mg/dL/unit * Nutritional / Prandial insulin per carb ratio of 1 unit per 6 grams CHO consumed PLAN FOR DISCHARGE: * A1c = 10.1 % on 02/28/21 * Goal A1c = 8-9% based on age and comorbidities * Recommend increasing insulin degludec (Tresiba) to 30 units SQ AM * Recommend adding bolus insulin with NovoLog/Regular (exact rapid acting insulin TBD based on insurance coverage) with high CHO meals and PRN hyperglycemia. * Meal time coverage = 5 units of rapid acting insulin with high CHO meals + Additional SSI for hyperglycemia * Could consider the following "low dose SSI" (CF ~ 25mg/dl/unit) * Blood Sugar 151-200 administer 1 units * Blood Sugar 201-250 administer 3 units * Blood Sugar 251-300 administer 5 units * Blood Sugar 301-350 administer 7 units * Blood Sugar 351-400 administer 9 units * Blood Sugar >400 administer 11 units and call
--- NOTE | 2021-03-05 12:07 | Discharge Summary ---
Date of Service March 05, 2021 Admission HPI Per Admitting Provider The patient is an 85-year-old male with a past medical history including neurodegenerative cognitive impairment, diabetes mellitus, BPH with LUTS, mild dementia, paroxysmal atrial fibrillation, chronic anticoagulation, left bundle branch block, LAD stent, CAD, diabetic neuropathy, diabetic retinopathy, hyperlipidemia, hypertension, aortic stenosis, mitral regurgitation, nontoxic multinodular goiter and vitamin D deficiency. Patient was most recently mid to [facility] from 02/27-02/28/2021 due to left 7 through 10 rib fractures obtained status post fall. He reports his pain has been well controlled since discharge, however, when he went home, he ate things that he should not have, which caused his sugar to go up, which caused his family to be concerned, and then referred him back to the ED this evening Admission Exam Per Admitting Provider The patient is awake, alert and oriented 3, well developed and well nourished, normocephalic and atraumatic, lying in bed and in no acute distress. HEENT--PERRL, EOMI, mucous membranes and oropharynx dry. Neck--supple. No JVD. No bruits. Thyroid normal, trachea midline, no adenopathy. Heart--normal S1 and S2. No murmurs, rubs or gallops. Lungs--clear bilaterally, no respiratory distress, no accessory muscle use. Abdomen--normal bowel sounds and soft. Nontender. Nondistended. Extremities--no cyanosis or clubbing. No edema. Dermatologic--normal skin turgor, normal color, no abnormal lymph nodes, no rash. Neurologic--cranial nerves II through XII grossly intact. Rheumatologic--normal range of motion. Psychiatric--normal affect. Principal Diagnosis Hyperglycemia Discharge Exam Constitutional WD/WN, vitals as above Eyes + anicteric sclerae and PERRL ENMT mmm Neck trachea midline, no thyromegaly Respiratory normal respiratory effort, lungs clear to auscultation Cardiovascular RRR, no murmur, no edema Chest (Breasts) Chest: normal inspection of chest (left sided rib pain on palpation, improved) Gastrointestinal (Abdomen) normal bowel sounds, soft, nontender, no hepatosplenomegaly Musculoskeletal no cyanosis or clubbing, extremities motor strength 5/5 Skin no rashes, warm and dry Neurologic patellar DTR's 2+ bilat, sensation intact and PERRL, EOMI, accommodation nl, no face palsy, no dysarthria Psychiatric A+Ox3, euthymic affect Lymphatic no cervical or axillary lymphadenopathy Discharge Data Allergies Allergy/AdvReac Type Severity Reaction Status Date / Time Sulfa (Sulfonamide Allergy Unknown UNKNOWN BY Verified 03/02/21 00:09 Antibiotics) PATIENT Consultations 03/02/21 01:02 ED Decision to Admit Stat Ordered Studies 03/01/21 21:22 CT head/brain wo con Urgent CXR 03/01/21 22:52 CT chest diagnostic wo con Urgent Diabetes Follow up Diabetes Follow-up Needed for HgbA1c >9% Hospital Course (1) Hyperglycemia due to type 2 diabetes mellitus: * Hyperglycemia due to diabetes mellitus type 2/dietary noncompliance- * Patient's blood sugar shot up to over 400 after he went home from be discharged to the hospital and ate inappropriate foods. * Improved with IV insulin and hydration and then transitioned to SSI with Tresiba increased up to 30u SQ QAM continued at discharge * To continue with CF 20 and CR 6 with sliding scale at rehab at discharge for further monitoring * Checked with CM/pricing for GLP-1 and Trulicity 0.75mg SQ weekly is covered and patient agreeable --> could have home health help with administration weekly as well however son attempting to get patient into facility in near future * --> Recommend follow up with Endocrinology at discharge SNF rehab on discharge to help continued monitoring/adjustments as needed to get stable regimen for home (2) Dietary noncompliance: See above (3) Paroxysmal atrial fibrillation: Paroxysmal atrial fibrillation/hypertension/LAD stent- Continue apixaban, aspirin, lisinopril, metoprolol succinate and rosuvastatin Of note, patient on apixaban 2.5mg BID per Dr. Yao Recommend considering increasing apixaban to 5mg BID given age >80 with acceptable kidney function and weight >60kg (89.5kg) at follow up (4) Presence of stent in LAD coronary artery: See above (5) Mild dementia: Continued aspirin, donepezil and fish oil (6) Closed rib fracture: For closed rib fractures left 7 through 10- Patient reports pain is well controlled with lidocaine patch during the day and Voltaren gel at nighttime Tylenol and Ultram PRN Discharged to [facility] for rehab. Total Time Total Time Spent Total Time Spent (In Minutes): 70 Discharge Plan Discharge Items Patient Disposition: Transfer [facility] Fac Reason For Visit: HYPERGLYCEMIA Discharge Diagnosis: Hyperglycemia Goals: You have been hospitalized for an acute medical problem. During your stay at [facility], we have made an effort to correct the problem that brought you to the hospital while keeping you as comfortable as possible. Medications were used to bring your condition under control and your discharge instructions will include directions for any medications you should take after leaving the hospital. Please make sure you see your Primary Care Provider as part of your follow up plan. Activity: Resume your previous activity Activity Comment: advance with therapy Non-emergency contact: Primary Care Provider and Specialist Call non-emergency contact if: you have any medication questions, your symptoms worsen and your pain is not controlled Follow-up/Referrals: Kd Bryant MD [Primary Care Provider] - Regis Long PA-C [Physician Warehouse Receiving Supervisor] - Diet: Carb Consistent or DM2 and Heart Healthy Addtl Attending Provider Instructions: You have been hospitalized for high blood sugars and were treated with IV insulin and fluids and your sugars have been much better controlled. This may have been related to both diet and mixing up which insulins to use. Pharmacy was consulted and we have come up with the following insulin regimen for you at discharge: * Your A1c was 10.1% which is uncontrolled * Continue to check your blood sugars AC/HS * Goal 100-150 with Correction Factor 20 and Carb Ratio 1:6 * Started and continued on insulin degludec (Tresiba) 30 units SQ QAM * Mealtime coverage: 5 units rapid acting NovoLog with high CHO meals and the following scale for additional SSI for hyperglycemia: * Blood Sugar 151-200 administer 1 units * Blood Sugar 201-250 administer 3 units * Blood Sugar 251-300 administer 5 units * Blood Sugar 301-350 administer 7 units * Blood Sugar 351-400 administer 9 units * Blood Sugar >400 administer 11 units and call MD They may make further adjustment as needed and you should continue to check your sugars multiple times a day to monitor for hypoglycemia and call doctor if values <70 or >300. You will also need to follow up with Endocrinology about starting Trulicity as a once weekly injectable to help get better control halfway as this medication is covered by your insurance. You will have your lisinopril increased to 20mg from 10mg daily to help with your elevated blood pressures and should continue to monitor BP at home. You should have repeat blood work in the next week to ensure kidney function stays stable on this medication. You should follow up with your primary care provider in the next week to monitor your progress. It has been a pleasure being a part of the medical team providing for you while you have been in the hospital. Take care! Pending Studies at Discharge: No Stand-Alone Forms: My [facility] Skilled Items Patient informed of condition?: Yes DNR: No Discharge Level of Care: Skilled Communicable Disease: No Discharge Prognosis: Stable Lines: None Urinary Catheter: No Medications and DC Order Prescriptions: New insulin aspart U-100 [Novolog Flexpen U-100 Insulin] 100 unit/mL (3 mL) Insulin Pen See Rx Instructions .ROUTE .COMPLEX Qty: 15 RF: 0 Continued donepezil 10 mg tablet 10 mg PO QAM Qty: 90 RF: 3 Eliquis 2.5 mg tablet 2.5 mg PO BID Qty: 180 RF: 3 (DME) OneTouch Verio test strips Strip See Dose Instructions .ROUTE .MEDSUPPLY Qty: 300 RF: 3 metoprolol succinate 25 mg tablet extended release 24 hr 25 mg PO QAM Qty: 90 RF: 3 ascorbate calcium (vitamin C) 500 mg tablet 500 mg PO QAM RF: 0 vitamin B complex Capsule 1 cap PO QAM RF: 0 (DME) pen needle, diabetic [BD Ultra-Fine Ros Pen Needle] 32 gauge x 5/32" needle See Rx Instructions .ROUTE .MEDSUPPLY RF: 0 cholecalciferol (vitamin D3) 1,000 unit capsule 1,000 units PO QAM RF: 0 nitroglycerin 0.4 mg tablet, sublingual 0.4 mg SL DIRECTED PRN (Reason: Chest Pain) RF: 0 aspirin [Adult Low Dose Aspirin] 81 mg tablet,delayed release (DR/EC) 81 mg PO QAM RF: 0 (DME) lancets [OneTouch Delica Lancets] 33 gauge misc See Dose Instructions .ROUTE .MEDSUPPLY Qty: 100 RF: 5 omega 2-czx-aaj-fish oil [Fish Oil] 1,200 (144-216) mg Capsule 1 cap PO QAM RF: 0 omeprazole 20 mg capsule,delayed release(DR/EC) 20 mg PO QAM RF: 0 rosuvastatin 40 mg tablet 40 mg PO QAM RF: 0 acetaminophen 325 mg tablet 650 mg PO UD RF: 0 tramadol 50 mg Tablet 50 mg PO Q4H PRN (Reason: pain) 14 Days Qty: 10 RF: 0 diclofenac sodium [Voltaren] 1 % Gel 2 g EXT HS 7 Days Qty: 50 RF: 1 lidocaine 5 % Adhesive Patch,Medicated 1 patch transdermal QAM 15 Days Qty: 15 RF: 0 Changed lisinopril 10 mg tablet 20 mg PO QAM Qty: 90 RF: 3 Tresiba FlexTouch U-100 100 unit/mL (3 mL) insulin pen 30 unit subcut QAM Qty: 30 RF: 3 Discharge Orders: Discharge Order (Routine); Ordered 03/05/21 Ordered By: Adali Jean Baptiste/Other Patient Handouts: Managing Type 2 Diabetes, Preventing Falls in the Home Admission Data Admit Date/Time: 03/02/21 19:54 Attending Provider: Aishwarya Padron Admit Provider: Paulo Stephenson Primary Care Provider: Kd Bryant Other Providers: [facility] ; Chencho Bradshaw [facility] [place] ; Paulo Rodriguez Other Interventions: Discharge Summary Assessment (RN) Last Done: 03/05/21 12:15 Supervising Physician Co-Signing Physician Notes PA Supervision Note: I personally saw and examined the patient. I verified all reynolds points and agree with DELTA Schwartz with the following exceptions and/or additions: S-patient feeling well, pain in the ribs is controlled, blood sugars are much improved. Blood pressures remained elevated and lisinopril was increased to 20 mg on the day of discharge He is stable for discharge to rehab O- Vitals reviewed Gen: AAOx3, NAD HEENT: Anicteric sclerae, EOMI CV: RRR no mgr nl S1S2 Pulm: CTAB no wcr Abd: +BS soft NT ND no masses or hernias Ext: No edema Skin: No rashes, warm/dry A/X-15-bzpp-old male here with recent falls with rib fractures, with hyperglycemia and uncontrolled diabetes Blood sugars much improved, needs rehab for recurrent falls and deconditioning Coding Level of Care Code D/C Day Management >30 mins Diagnoses Hyperglycemia due to type 2 diabetes mellitus E11.65 Dietary noncompliance Z91.11 Paroxysmal atrial fibrillation I48.0 Presence of stent in LAD coronary artery Z95.5 Mild dementia F03.90 Closed rib fracture S22.42XA Encounter type: initial encounter Laterality: left Rib fracture type: multiple ribs
== END 2021-03-05 15:46 ==
LOC: 2W 20:44 → ED 20:44 → SUATTDRO 03-02 01:54 → 2W 03-02 02:53 → SUATTDRO 03-02 19:54 → 3N 03-03 12:57

== ENCOUNTER 2022-10-17 13:18 | Observation (INO) ==
--- NOTE | 2022-10-17 14:00 | Emergency Department Note ---
History of Present Illness General Chief complaint: Weakness Stated complaint: UNABLE TO STAND, SLURRING SPEECH Time Seen by Provider: 10/17/22 13:43 Source: patient Mode of arrival: ambulatory Limitations: no limitations History of Present Illness Maximum Pain Intensity: 8 This patient is a 87-year-old male who was brought in after having weakness. The nurse called me from triage as she was concerned it could be a stroke. I went and saw the patient. He woke up this way and has been weak in both of his legs. His son thought his speech may be slightly off. He was also found on the ground this morning may have fallen he is on Xarelto. He usually walks but is having a hard time get himself out of bed. He denies that it hurts anywhere but his son said he might not tell us. He does have baseline dementia which may be slightly worse. He has had no fevers a slight cough. His blood sugars are running okay is a diabetic. Home Medications Medication Instructions Recorded Confirmed Type cholecalciferol (vitamin D3) 25 1,000 units PO QAM 05/16/19 07/03/22 History mcg (1,000 unit) capsule aspirin 81 mg tablet,delayed 81 mg PO QAM 06/20/19 07/03/22 History release (Adult Low Dose Aspirin) ascorbate calcium (vitamin C) 500 500 mg PO QAM 03/28/20 07/03/22 History mg tablet vitamin B complex 1 cap PO QAM 04/05/20 07/03/22 History donepezil 10 mg tablet 10 mg PO QAM #90 tabs 10/26/20 07/03/22 Rx lisinopril 20 mg tablet 20 mg PO DAILY #90 tabs 06/05/21 07/03/22 Rx rosuvastatin 40 mg tablet 40 mg PO QAM #90 tabs 06/05/21 07/03/22 Rx metoprolol succinate 25 mg 12.5 mg PO QAM #90 tabs 06/17/21 07/03/22 Rx tablet,extended release 24 hr rivaroxaban 20 mg tablet (Xarelto) 20 mg PO QPM 06/29/21 07/03/22 History nitroglycerin 0.4 mg sublingual 0.4 mg sublingual DIRECTED PRN 08/29/2107/03 Rx tablet Chest Pain #20 tabs dutasteride 0.5 mg capsule 0.5 mg PO DAILY #90 caps 09/24/21 07/03/22 Rx omeprazole 20 mg capsule,delayed See Rx Instructions .Route 09/30/21 07/03/22 Rx release .COMPLEX #90 caps blood glucose control, high #1 ea 11/12/21 07/03/22 Rx (OneTouch Verio High Control solution) lancets 33 gauge (OneTouch Delica #120 ea 12/11/21 07/03/22 Rx Lancets) OneTouch Verio test strips (blood #400 ea 12/13/21 07/03/22 Rx sugar diagnostic) pen needle, diabetic 32 gauge x #400 ea 12/13/21 07/03/22 Rx 32" (BD Ultra-Fine Ros Pen Needle) insulin degludec 100 unit/mL (3 15 unit subcut QAM 01/30/22 07/03/22 History mL) subcutaneous pen (Tresiba FlexTouch U-100 insulin) insulin aspart U-100 100 unit/mL 8 unit subcut .COMPLEX 05/21/22 07/03/22 History (3 mL) subcutaneous pen (Novolog Flexpen U-100 Insulin aspart) memantine 10 mg tablet 10 mg PO BID 90 days #180 tabs 07/03/22 Rx clotrimazole-betamethasone 1 1 applic topical .qhs #45 grams 08/19/22 08/19/22 Rx %-0.05 % topical cream Allergies Allergy/AdvReac Type Severity Reaction Status Date / Time Sulfa (Sulfonamide Allergy Unknown UNKNOWN BY Verified 07/03/22 09:46 Antibiotics) PATIENT Past Med/Surg History Medical History Abnormal electrocardiogram Acute hyperglycemia Acute hyponatremia Albuminuria Arteriosclerotic heart disease Benign prostatic hyperplasia 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 CHI (closed head injury) Chronic anticoagulation Chronic prostatitis Chronic rhinitis Closed rib fracture Coronary atherosclerosis of [place] coronary vessel (06/07/12) Diabetes type 2, controlled 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 Dupuytrens contracture Dysesthesia Dyslipidemia Elevated PSA Enlarged prostate with lower urinary tract symptoms (LUTS) Facial abrasion Fall from slip, trip, or stumble Former smoker Hematospermia Hypertension Laryngopharyngeal reflux Left shoulder strain Leukopenia Microscopic hematuria Mild aortic regurgitation Mild aortic stenosis Mild mitral regurgitation Myocardial infarction (06/07/12) Nephrolithiasis Nontoxic multinodular goiter Other and unspecified hyperlipidemia (06/07/12) Pancytopenia (~2000) PND (post-nasal drip) Rhabdomyolysis Right rib fracture Sepsis (06/07/12) Septicemia due to Gram-negative organism, unspecified (06/07/12) Vitamin D deficiency Weakness Surgical History History of arthroscopy of knee History of cataract surgery History of colonoscopy History of cystoscopy History of tonsillectomy S/P drug eluting coronary stent placement Status post Mohs surgery Family History Brother Coronary heart disease Father Angina pectoris Carcinoma of pancreas Myocardial infarction Mother Congestive heart failure Breast cancer Unknown Diabetes Heart disease Hypertension Daughter Breast cancer Denies family history of Ovarian cancer Prostate cancer Colorectal cancer Social History Smoking Status: Never smoker Tobacco Type: Cigarettes Second Hand Exposure: No; Hx Alcohol Use: No Hx Substance Use: No Preferred Language: Mauritian Communication Ability: Effective Visual Impairment: Limited Hearing Ability: Normal International Marketing Specialist Required: No Beliefs That Will Affect Care: None marital status: / Current Living Situation: Other Current Living Situation Comment: Lives with girlfriend current occupational status: retired How many Children do You have: 3 Feels Safe at Home: Yes Childhood Exposure to Second-Hand Smoke: No caffeine: Yes Dental Care, Regularly: Yes Physical Activity Frequency: 1-2 Times per Week Seatbelt Use: always Sunscreen Use: Yes Assistive Devices: Glasses and Walker Review of Systems A total of 10 systems reviewed and were otherwise negative Physical Exam Vital Signs Vital Signs - 24 hr 10/17/22 13:33 10/17/22 15:14 10/17/22 15:19 Temperature 37.1 C Temperature Source Temporal Artery Scan Pulse Rate 54 L 57 L Pulse Rate [Finger] Respiratory Rate 18 19 Respiratory Effort / Characteristics Respiratory Depth Respiratory Pattern Blood Pressure 110/60 Blood Pressure [Left Arm] Blood Pressure Mean 76 Blood Pressure Mean [Left Arm] Blood Pressure Position [Left Arm] Pulse Oximetry 92 94 93 Oxygen Delivery Method Room Air Room Air Room Air Sepsis Recent Fever Within 48 Hours No Sepsis New/Unexplained Change in Mental Status N/A Sepsis Action Taken by Nursing No Action Required 10/17/22 15:19 Temperature Temperature Source Pulse Rate Pulse Rate [Finger] 57 L Respiratory Rate 18 Respiratory Effort / Characteristics Non-Labored Spontaneous Respiratory Depth Normal Respiratory Pattern Regular Blood Pressure Blood Pressure [Left Arm] 143/68 H Blood Pressure Mean Blood Pressure Mean [Left Arm] 93 Blood Pressure Position [Left Arm] Sitting Pulse Oximetry 93 Oxygen Delivery Method Room Air Sepsis Recent Fever Within 48 Hours Sepsis New/Unexplained Change in Mental Status Sepsis Action Taken by Nursing General: Well developed well nourished older male who answers most questions appropriately but does have baseline dementia. In no acute distress, breathing comfortably on room air. Normal speech HEENT: Normal cephalic atraumatic. Pupils are equal round and reactive to light. Extraocular movements are intact. Oropharynx is pink with moist mucous membranes. No swelling of the mouth lips or tongue. Neck: Supple with a midline trachea. No meningeal signs or stiffness, no JVD or bruits. No Stridor. Chest: Clear to auscultation bilaterally. No wheezes or rhonchi. No increased work of breathing. Heart: Regular rate and rhythm without murmurs or gallops. Abdomen: Soft nontender, nondistended without rebound guarding or rigidity. Extremities: No cyanosis clubbing or edema. No calf tenderness or assymetry Spine/Back. Non tender to palpation. No CVA tenderness Skin: Good turgor without rashes. Neurologic exam: Cranial nerves two through 12 are intact. Motor and sensation are intact and symmetrical throughout. When I tried to get him out of the chair to stand up he is weak in doing so. It seems bilaterally and nonfocal Course Administered Medications Discontinued Medications Sodium Chloride (Nss 1000ml) 1,000 mls @ 999 mls/hr IV .Q1H1M ONE Stop: 10/17/22 17:51 Last Admin: 10/17/22 17:47 Dose: 999 mls/hr Documented By: ALENA Ioversol (Optiray 350 100ml) 82 ml IV ONCE ONE Stop: 10/17/22 16:37 Last Admin: 10/17/22 16:36 Dose: 82 ml Documented By: NANDA Medical Decision Making Differential Diagnosis Central neurologic process, lumbar or spinal process/disease, infection, inflammation, electrolyte or metabolic abnormality Medical Records Attestation: I reviewed the patient's medical records. Home Medications Current Medication List: was personally reviewed by me Laboratory Data Attestation: I reviewed the patient's lab results. Result diagrams: 10/17/22 14:11 10/17/22 14:11 Lab Results 10/17/22 10/17/22 10/17/22 Range/Units 14:11 14:11 14:11 WBC 3.11 L (4.8-10.8) K/ul RBC 3.79 L (4.63-6.08) M/uL Hgb 12.4 L (14.0-18.0) g/dl Hct 36.2 L (40.1-51.0) % MCV 95.5 (80.0-100.0) fL MCH 32.7 (25.0-34.0) pg MCHC 34.3 (32.0-36.0) g/dL RDW Std Deviation 47.8 H (36.4-46.3) fL RDW Coeff of Anaid 13.7 (11.5-14.5) % Plt Count 131 (130-400) K/uL MPV 9.2 L (9.4-12.4) fL Immature Gran % (Auto) 0.3 % Neut % (Auto) 68.3 % Lymph % (Auto) 13.8 % [place] % (Auto) 16.7 % Eos % (Auto) 0.3 % Baso % (Auto) 0.6 % Neut # (Auto) 2.12 (1.4-6.5) K/uL Lymph # (Auto) 0.43 L (1.2-3.4) K/uL [place] # (Auto) 0.52 (0.24-0.82) K/uL Eos # (Auto) 0.01 (0-0.50) K/uL Baso # (Auto) 0.02 (0-0.2) K/uL Immature Gran # (Auto) 0.01 (0.00-0.02) K/uL PT 12.1 H (9.0-12.0) Seconds INR 1.1 (0.9-1.1) APTT 29.5 (21.0-31.0) Seconds PTT Ratio 1.1 Sodium 135 L (136-145) mmol/L Potassium 3.7 (3.5-5.1) mmol/L Chloride 103 (98-107) mmol/L Carbon Dioxide 22 (21-32) mmol/L Anion Gap 10 (3-11) BUN 18 (6-23) mg/dl Creatinine 0.97 (0.6-1.4) mg/dl Est Cr Clr Drug Dosing Not Reportable Est GFR ( Amer) 81.0 ml/min Est GFR (Non-Af Amer) 69.9 ml/min BUN/Creatinine Ratio 18.6 (10-20) Glucose 138 H (70-99(Fasting)) mg/dl Calcium 8.9 (8.5-10.1) mg/dl Total Bilirubin 0.9 (0.2-1.0) mg/dl AST 21 (13-39) U/L ALT 16 (7-52) U/L Alkaline Phosphatase 65 (34-104) U/L Troponin I High Sens 18.7 (0-20) pg/ml Total Protein 6.3 (6.0-8.3) gm/dl Albumin 3.9 (3.4-5.0) gm/dl Globulin 2.4 L (2.5-4.0) gm/dl Albumin/Globulin Ratio 1.6 (0.9-2) TSH (0.300-4.500) uIu/ml Urine Color Urine Appearance (Clear) Urine pH (4.5-7.5) Ur Specific [place] (1.000-1.030) Urine Protein (Negative) Urine Glucose (UA) (Negative) Urine Ketones (Negative) Urine Blood (Negative) Urine Nitrite (Negative) Urine Bilirubin (Negative) Urine Urobilinogen (Negative) Ur Leukocyte Esterase (Negative) Urine WBC (Auto) (0-5) /hpf Urine RBC (Auto) (0-4) /hpf U Hyaline Cast (Auto) (0-5) /lpf U Epithel Cells (Auto) (0-5) /lpf Urine Bacteria (Auto) (Negative) SARS-CoV-2 (PCR) (Negative) Influenza Type A (PCR) (Neg) Influenza Type B (PCR) (Neg) RSV (RT-PCR) (Neg) 10/17/22 10/17/22 10/17/22 Range/Units 14:11 15:15 17:07 WBC (4.8-10.8) K/ul RBC (4.63-6.08) M/uL Hgb (14.0-18.0) g/dl Hct (40.1-51.0) % MCV (80.0-100.0) fL MCH (25.0-34.0) pg MCHC (32.0-36.0) g/dL RDW Std Deviation (36.4-46.3) fL RDW Coeff of Anaid (11.5-14.5) % Plt Count (130-400) K/uL MPV (9.4-12.4) fL Immature Gran % (Auto) % Neut % (Auto) % Lymph % (Auto) % [place] % (Auto) % Eos % (Auto) % Baso % (Auto) % Neut # (Auto) (1.4-6.5) K/uL Lymph # (Auto) (1.2-3.4) K/uL [place] # (Auto) (0.24-0.82) K/uL Eos # (Auto) (0-0.50) K/uL Baso # (Auto) (0-0.2) K/uL Immature Gran # (Auto) (0.00-0.02) K/uL PT (9.0-12.0) Seconds INR (0.9-1.1) APTT (21.0-31.0) Seconds PTT Ratio Sodium (136-145) mmol/L Potassium (3.5-5.1) mmol/L Chloride (98-107) mmol/L Carbon Dioxide (21-32) mmol/L Anion Gap (3-11) BUN (6-23) mg/dl Creatinine (0.6-1.4) mg/dl Est Cr Clr Drug Dosing Est GFR ( Amer) ml/min Est GFR (Non-Af Amer) ml/min BUN/Creatinine Ratio (10-20) Glucose (70-99(Fasting)) mg/dl Calcium (8.5-10.1) mg/dl Total Bilirubin (0.2-1.0) mg/dl AST (13-39) U/L ALT (7-52) U/L Alkaline Phosphatase (34-104) U/L Troponin I High Sens (0-20) pg/ml Total Protein (6.0-8.3) gm/dl Albumin (3.4-5.0) gm/dl Globulin (2.5-4.0) gm/dl Albumin/Globulin Ratio (0.9-2) TSH 0.375 (0.300-4.500) uIu/ml Urine Color Yellow Urine Appearance Clear (Clear) Urine pH 5.5 (4.5-7.5) Ur Specific [place] 1.034 H (1.000-1.030) Urine Protein 1+ H (Negative) Urine Glucose (UA) Negative (Negative) Urine Ketones Negative (Negative) Urine Blood Negative (Negative) Urine Nitrite Negative (Negative) Urine Bilirubin Negative (Negative) Urine Urobilinogen Negative (Negative) Ur Leukocyte Esterase Negative (Negative) Urine WBC (Auto) 1-5 (0-5) /hpf Urine RBC (Auto) 0-4 (0-4) /hpf U Hyaline Cast (Auto) 1-5 (0-5) /lpf U Epithel Cells (Auto) 10-20 H (0-5) /lpf Urine Bacteria (Auto) Negative (Negative) SARS-CoV-2 (PCR) NEGATIVE (Negative) Influenza Type A (PCR) Positive A* (Neg) Influenza Type B (PCR) Negative (Neg) RSV (RT-PCR) Negative (Neg) Imaging Data Attestation: I personally reviewed and interpreted this imaging study as follows: My Impression: Chest x-ray-no acute infiltrate, failure, pneumothorax seen Radiologist's Impression: Chest X-Ray 10/17/22 13:43 XR chest 1V portable CLINICAL HISTORY: weakness COMPARISON STUDY: Chest radiograph and chest CT June 29, 2021. FINDINGS: No pneumothorax or pleural effusion is present. No consolidation. Cardiomegaly is unchanged. There is no evidence for pulmonary edema. The appearance of the chest is unchanged. There are multiple old left-sided rib fractures. IMPRESSION: No acute cardiopulmonary findings. No significant change in appearance of the chest. ACT 112: Negative or not required by law. Electronically signed by: Óscar Stubbs M.D. 10/17/2022 2:[address] 10/17/22 13:43 CT SCAN OF THE BRAIN WITHOUT IV CONTRAST CLINICAL HISTORY: Generalized weakness. Fall. COMPARISON STUDY: CT of the brain dated 11/25/2021. TECHNIQUE: Unenhanced axial CT scan of the brain is performed from the vertex to the skull base. A dose lowering technique was utilized adhering to the principles of ALARA. The patient was scanned twice due to motion artifact. FINDINGS: Brain parenchyma: There is age-related involutional change noting mild subcortical and periventricular microangiopathic disease. There is no hemorrhage, mass effect, or evidence of acute territorial ischemia by CT criteria. Nixon-white matter differentiation is preserved. No extra-axial fluid collection is seen. Ventricles, sulci, cisterns: Prominent secondary to involutional change. Intracranial vasculature: There is atherosclerotic calcification of the cavernous carotid and vertebral artery. Calvarium: The skeletal structures are osteopenic. No depressed calvarial fracture is seen. Sinuses and mastoids: There is mild mucosal thickening within the right maxillary antrum. Moderate mucosal thickening is noted within the frontal and ethmoid sinuses. There is a left mastoid effusion. The right mastoid air cells are well pneumatized. Orbits: The bony orbits are grossly intact. There are bilateral ocular lens implants. IMPRESSION: There is no hemorrhage, mass effect, or evidence of acute territorial ischemia by CT criteria. ACT 112: Negative or not required by law. Electronically signed by: Александр Rowe M.D. 10/17/2022 4:47 PM Abdomen/Pelvis CT 10/17/22 13:55 CT abd pelvis IV con only, CT lumbar spine w con CLINICAL HISTORY: fall, weakness, on xarelto TECHNIQUE: Helical axial images of the abdomen and pelvis were obtained and displayed. Automated dose lowering techniques and/or adjustment according to patient size were utilized for this exam. Dedicated images of the lumbar spine were obtained. This exam was performed with intravenous contrast. CT DOSE: 2421.68 mGy.cm COMPARISON: Comparison is made to CT abdomen pelvis 07/31/2019 FINDINGS: Lower chest: Bibasilar atelectasis versus scarring is seen. Biatrial enlargement and atherosclerosis in the coronary arteries noted.6 Liver: Unremarkable. No focal lesions are seen. Gallbladder and biliary tree: Cholelithiasis is seen without evidence of cholecystitis. No intra- or extrahepatic biliary ductal dilation. Pancreas: Fatty replacement of the pancreas is seen. Spleen: Unremarkable. Adrenals: Unremarkable. Kidneys and ureters: Perinephric stranding is noted bilaterally. Nonobstructive stones are seen. Bladder: Diffuse homogeneous wall thickening is seen. Reproductive organs: Unremarkable. Bowel: Unremarkable. Lymph nodes Retroperitoneal: Unremarkable. Pelvic: Unremarkable. Mesenteric: Unremarkable. Peritoneum: Normal. Vessels: Atherosclerotic calcifications are seen. Abdominal wall: Unremarkable. Bones: Old healed rib fractures are seen. Degenerative changes are seen in the spine. 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 IMPRESSION: No acute abnormalities, in particular no evidence of intra-abdominal hemorrhage or acute fracture. Old healed rib fractures and degenerative changes of the spine are seen. ACT 112: Negative or not required by law. Electronically signed by: Chuckie Gonzalez M.D. 10/17/2022 5:[address] 10/17/22 13:55 CT SCAN OF THE CERVICAL SPINE CLINICAL HISTORY: Trauma. Fall COMPARISON STUDY: CT of the cervical spine dated 11/25/2021. TECHNIQUE: CT scan of the cervical spine is performed from the skull base to the upper thoracic spine. Images are reviewed in the axial, sagittal, and coronal planes. IV contrast was not administered for this examination. A dose lowering technique was utilized adhering to the principles of ALARA. FINDINGS: Skeletal structures: The skeletal structures are osteopenic. There is no evide nce of fracture or subluxation involving the cervical spine. Vertebral body height is maintained. There is minimal anterolisthesis at C4-C5. Alignment is preserved. There is straightening of the cervical lordosis with reversal centered at C4-C5. Large anterior osteophytes are seen throughout. The odontoid process and lateral masses are intact. The atlantoaxial articulation is preserved note is productive degenerative change. The spinous processes appear intact. There is moderate multilevel cervical spondylosis. Uncovertebral and facet arthropathy contribute to foraminal narrowing at several levels. Intervertebral discs: There is moderate to severe disc space narrowing at all cervical levels between C3-C4 and C6-C7 with multilevel endplate sclerosis. Central canal: Posterior disc osteophyte complexes are seen at all cervical levels between C3-C4 and C6-C7. This likely contributes to multilevel acquired compromise of the central canal. Soft tissues: The prevertebral and paraspinous soft tissues are within normal limits. There is atherosclerotic calcification of the carotid bulbs. Calvarium: The visualized calvarium at the skull base appears intact. Brain parenchyma: Partially visualized brain parenchyma at the skull base is within normal limits. Sinuses and mastoids: The visualized paranasal sinuses are clear. There is a lef t mastoid effusion. The right mastoid air cells are well pneumatized. Lung apices: Clear as visualized. IMPRESSION: 1. There is no evidence of fracture or subluxation involving the cervical spine. 2. Osteopenia and spondylotic change as above. ACT 112: Negative or not required by law. Electronically signed by: Александр Rowe M.D. 10/17/2022 5:[address] 10/17/22 13:55 CT abd pelvis IV con only, CT lumbar spine w con CLINICAL HISTORY: fall, weakness, on xarelto TECHNIQUE: Helical axial images of the abdomen and pelvis were obtained and displayed. Automated dose lowering techniques and/or adjustment according to patient size were utilized for this exam. Dedicated images of the lumbar spine were obtained. This exam was performed with intravenous contrast. CT DOSE: 2421.68 mGy.cm COMPARISON: Comparison is made to CT abdomen pelvis 07/31/2019 FINDINGS: Lower chest: Bibasilar atelectasis versus scarring is seen. Biatrial enlargement and atherosclerosis in the coronary arteries noted.6 Liver: Unremarkable. No focal lesions are seen. Gallbladder and biliary tree: Cholelithiasis is seen without evidence of cholecystitis. No intra- or extrahepatic biliary ductal dilation. Pancreas: Fatty replacement of the pancreas is seen. Spleen: Unremarkable. Adrenals: Unremarkable. Kidneys and ureters: Perinephric stranding is noted bilaterally. Nonobstructive stones are seen. Bladder: Diffuse homogeneous wall thickening is seen. Reproductive organs: Unremarkable. Bowel: Unremarkable. Lymph nodes Retroperitoneal: Unremarkable. Pelvic: Unremarkable. Mesenteric: Unremarkable. Peritoneum: Normal. Vessels: Atherosclerotic calcifications are seen. Abdominal wall: Unremarkable. Bones: Old healed rib fractures are seen. Degenerative changes are seen in the spine. 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 IMPRESSION: No acute abnormalities, in particular no evidence of intra-abdominal hemorrhage or acute fracture. Old healed rib fractures and degenerative changes of the spine are seen. ACT 112: Negative or not required by law. Electronically signed by: Chuckie Gonzalez M.D. 10/17/2022 5:09 PM ECG Data Attestation: I personally reviewed and interpreted this ECG as follows: Indication: + weakness Rate (beats per minute): 57 Rhythm: + sinus bradycardia ECG Intervals/blocks: + First degree AV block, + Left bundle branch block and + Normal QT ECG [place]: + Left axis deviation ECG ST segments: + Normal ST segments ECG Findings: no PACs or no PVCs Comparison ECG Date: from (11/25/21) Change: no significant change MDM Narrative This patient is a 87-year-old male who comes in after having weakness. I did see him in triage. Stroke was certainly be within the differential but he seems more diffusely weak in the legs did fall and he may have injured himself further denies any pain I think more likely he was weak to begin with and fell. I did do a weakness type work-up I also did a CAT scan of his head and neck as well as abdomen and pelvis. COVID test and urinalysis were ordered as well as EKG and blood work. He was reassessed frequently. His COVID test was negative. He was however positive for influenza A which may explain all of his symptoms. He seems generally diffusely weak. EKG did not show any definite ischemic changes or ectopy, no change compared to old. His troponin is not elevated. He has no significant electrolyte or metabolic abnormalitie.s white count is mildly low consistent with viral illness he has no significant anemia. CAT scan of his head was unremarkable. Additionally his CAT scan of the abdomen, cervical spine and lumbar spine do not show any acute abnormalities. He was hydrated with IV normal saline bolus 1 L. Urinalysis does not suggest a UTI. I talked to the son at length the patient has been more confused he is weak and is unable to get up he does not feel he can go back to his current living situation which is only assisted care. I have consulted the hospitalist for further treatment and evaluation and admission/observation. Continuous cardiac monitoring: Orders placed in EMR for continuous cardiac monitoring. Upon my interpretation patient was noted to be normal sinus rhythm the rate of 60 Impression & Plan Influenza A, Weakness, Dementia, Confusion Discharge Plan Visit Data Chief Complaint: Weakness Stated Complaint: UNABLE TO STAND, SLURRING SPEECH ED Provider: Angus Cantrell Discharge Problem: Influenza A, Weakness, Dementia, Confusion Forms Stand Alone Forms: [facility] Prescriptions Prescriptions: No Action donepezil 10 mg tablet 10 mg PO QAM Qty: 90 3RF rosuvastatin 40 mg tablet 40 mg PO QAM Qty: 90 3RF lisinopril 20 mg tablet 20 mg PO DAILY Qty: 90 3RF nitroglycerin 0.4 mg tablet, sublingual 0.4 mg SL DIRECTED PRN (Reason: Chest Pain) Qty: 20 1RF omeprazole 20 mg capsule,delayed release(DR/EC) See Rx Instructions .ROUTE .COMPLEX Qty: 90 3RF Dose Instruction: TAKE 1 CAPSULE BY MOUTH EVERY DAY Rx Instructions: TAKE 1 CAPSULE BY MOUTH EVERY DAY (DME) lancets [SqueakeeTouch DelBiolase Lancets] 33 gauge misc See Dose Instructions .ROUTE .MEDSUPPLY Qty: 120 5RF Rx Instructions: Test blood sugars 4 times a day (DME) pen needle, diabetic [BD Ultra-Fine Ros Pen Needle] 32 gauge x 5/32" needle See Rx Instructions .ROUTE .MEDSUPPLY Qty: 400 1RF Rx Instructions: Use to inject insulin 4x per day (DME) OneTouch Verio test strips Strip See Dose Instructions .ROUTE .MEDSUPPLY Qty: 400 3RF Rx Instructions: Test blood sugars 4 times a day: fasting, before lunch, before supper, before bed memantine 10 mg tablet 10 mg PO BID 90 Days Qty: 180 2RF metoprolol succinate 25 mg tablet extended release 24 hr 12.5 mg PO QAM Qty: 90 3RF (DME) OneTouch Verio High Control Solution See Rx Instructions .Route Qty: 1 0RF Rx Instructions: As directed clotrimazole-betamethasone 1-0.05 % cream 1 applic topical .qhs Qty: 45 11RF Rx Instructions: Apply small/pea-sized amount topically before bed ascorbate calcium (vitamin C) 500 mg tablet 500 mg PO QAM vitamin B complex Capsule 1 cap PO QAM cholecalciferol (vitamin D3) 1,000 unit capsule 1,000 units PO QAM aspirin [Adult Low Dose Aspirin] 81 mg tablet,delayed release (DR/EC) 81 mg PO QAM dutasteride 0.5 mg capsule 0.5 mg PO DAILY Qty: 90 3RF Tresiba FlexTouch U-100 100 unit/mL (3 mL) insulin pen 15 unit subcut QAM Hold Instructions: tyring nph insulin aspart U-100 [Novolog Flexpen U-100 Insulin] 100 unit/mL (3 mL) insulin pen 8 unit subcut .COMPLEX Rx Instructions: 8 units subcut 15 min before meals (three times per day); Xarelto 20 mg tablet 20 mg PO QPM Rx Instructions: must administer with evening meal [facility] : Dementia Qualifiers: Dementia type: unspecified type Dementia severity: mild Dementia behavioral or psychological symptom: without behavioral, psychotic, or mood disturbance or anxiety Qualified Code(s): F03.A0 - Unspecified dementia, mild, without behavioral disturbance, psychotic disturbance, mood disturbance, and anxiety
[2022-10-17 14:22] LABS: Basophils # (auto) 0.02 K/uL (0-0.2); Basophils % (auto) 0.6 %; Eosinophils # (auto) 0.01 K/uL (0-0.50); Eosinophils % (auto) 0.3 %; Hematocrit (blood only) 36.2 % (40.1-51.0); Hemoglobin 12.4 g/dl (14.0-18.0); Immature Granulocytes # (auto) 0.01 K/uL (0.00-0.02); Immature Granulocytes % (auto) 0.3 %; Lymphocytes # (auto) 0.43 K/uL (1.2-3.4); Lymphocytes % (auto) 13.8 %; Mean Corpuscular Hemoglobin 32.7 pg (25.0-34.0); Mean Corpuscular Hgb Conc 34.3 g/dL (32.0-36.0); Mean Corpuscular Volume 95.5 fL (80.0-100.0); Mean Platelet Volume 9.2 fL (9.4-12.4); Monocytes # (auto) 0.52 K/uL (0.24-0.82); Monocytes % (auto) 16.7 %; Neutrophils # (auto) 2.12 K/uL (1.4-6.5); Neutrophils % (auto) 68.3 %; Platelet Count 131 K/uL (130-400); RDW Coefficient of Variation 13.7 % (11.5-14.5); RDW Standard Deviation 47.8 fL (36.4-46.3); Red Blood Count 3.79 M/uL (4.63-6.08); White Blood Count 3.11 K/ul (4.8-10.8)
[2022-10-17 14:35] LABS: INR 1.1 (0.9-1.1); Partial Thromboplastin Ratio 1.1; Partial Thromboplastin Time 29.5 Seconds (21.0-31.0); Prothrombin Time 12.1 Seconds (9.0-12.0)
[2022-10-17 14:51] LABS: Troponin I High Sensitivity 18.7 pg/ml (0-20)
--- NOTE | 2022-10-17 14:52 | XRay Report ---
XR chest 1V portable CLINICAL HISTORY: weakness COMPARISON STUDY: Chest radiograph and chest CT June 29, 2021. FINDINGS: No pneumothorax or pleural effusion is present. No consolidation. Cardiomegaly is unchange d. There is no evidence for pulmonary edema. The appearance of the chest is unchanged. There are mult iple old left-sided rib fractures. IMPRESSION: No acute cardiopulmonary findings. No significant change in appearance of the chest. ACT 112: Negative or not required by law. Electronically signed by: Óscar Stubbs M.D. 10/17/2022 2:51 PM
[2022-10-17 15:14] LABS: Alanine Aminotransferase 16 U/L (7-52); Albumin Globulin Ratio 1.6 (0.9-2); Albumin Level 3.9 gm/dl (3.4-5.0); Alkaline Phosphatase 65 U/L (34-104); Anion Gap 10 (3-11); Aspartate Aminotransferase 21 U/L (13-39); BUN Creatinine Ratio 18.6 (10-20); Bilirubin,Total 0.9 mg/dl (0.2-1.0); Blood Urea Nitrogen 18 mg/dl (6-23); Calcium 8.9 mg/dl (8.5-10.1); Carbon Dioxide 22 mmol/L (21-32); Chloride 103 mmol/L (98-107); Est GFR (Non-African American) 69.9 ml/min; Globulin 2.4 gm/dl (2.5-4.0); Glucose 138 mg/dl (70-99(Fasting)); Potassium 3.7 mmol/L (3.5-5.1); Sodium 135 mmol/L (136-145); Total Protein 6.3 gm/dl (6.0-8.3)
[2022-10-17 16:22] LABS: Influenza B virus by PCR Negative (Neg); RSV by PCR Negative (Neg); SARS CoV2 RNA(COVID-19) Ceph NEGATIVE (Negative)
[2022-10-17 16:25] LABS: Influenza A virus by PCR Positive (Neg)
[2022-10-17] MEDS ORDERED: OPTIRAY 350 100ml IV ONE (16:36)
--- NOTE | 2022-10-17 16:49 | CT Scan Report ---
CT SCAN OF THE BRAIN WITHOUT IV CONTRAST CLINICAL HISTORY: Generalized weakness. Fall. COMPARISON STUDY: CT of the brain dated 11/25/2021. TECHNIQUE: Unenhanced axial CT scan of the brain is performed from the vertex to the skull base. A do se lowering technique was utilized adhering to the principles of ALARA. The patient was scanned twice due to motion artifact. FINDINGS: Brain parenchyma: There is age-related involutional change noting mild subcortical and periventricula r microangiopathic disease. There is no hemorrhage, mass effect, or evidence of acute territorial isc hemia by CT criteria. Nixon-white matter differentiation is preserved. No extra-axial fluid collection is seen. Ventricles, sulci, cisterns: Prominent secondary to involutional change. Intracranial vasculature: There is atherosclerotic calcification of the cavernous carotid and vertebr al artery. Calvarium: The skeletal structures are osteopenic. No depressed calvarial fracture is seen. Sinuses and mastoids: There is mild mucosal thickening within the right maxillary antrum. Moderate mu cosal thickening is noted within the frontal and ethmoid sinuses. There is a left mastoid effusion. T he right mastoid air cells are well pneumatized. Orbits: The bony orbits are grossly intact. There are bilateral ocular lens implants. IMPRESSION: There is no hemorrhage, mass effect, or evidence of acute territorial ischemia by CT kenny falcon. ACT 112: Negative or not required by law. Electronically signed by: Александр Rowe M.D. 10/17/2022 4:47 PM
[2022-10-17] MEDS ORDERED: SODIUM CHLORIDE 0.9% 1000ML 1,000 ML IV ONE (16:51)
--- NOTE | 2022-10-17 17:09 | CT Scan Report ---
CT SCAN OF THE CERVICAL SPINE CLINICAL HISTORY: Trauma. Fall COMPARISON STUDY: CT of the cervical spine dated 11/25/2021. TECHNIQUE: CT scan of the cervical spine is performed from the skull base to the upper thoracic spine . Images are reviewed in the axial, sagittal, and coronal planes. IV contrast was not administered fo r this examination. A dose lowering technique was utilized adhering to the principles of ALARA. FINDINGS: Skeletal structures: The skeletal structures are osteopenic. There is no evidence of fracture or subl uxation involving the cervical spine. Vertebral body height is maintained. There is minimal anterolis thesis at C4-C5. Alignment is preserved. There is straightening of the cervical lordosis with reversa l centered at C4-C5. Large anterior osteophytes are seen throughout. The odontoid process and lateral masses are intact. The atlantoaxial articulation is preserved note is productive degenerative change . The spinous processes appear intact. There is moderate multilevel cervical spondylosis. Uncovertebr al and facet arthropathy contribute to foraminal narrowing at several levels. Intervertebral discs: There is moderate to severe disc space narrowing at all cervical levels between C3-C4 and C6-C7 with multilevel endplate sclerosis. Central canal: Posterior disc osteophyte complexes are seen at all cervical levels between C3-C4 and C6-C7. This likely contributes to multilevel acquired compromise of the central canal. Soft tissues: The prevertebral and paraspinous soft tissues are within normal limits. There is athero sclerotic calcification of the carotid bulbs. Calvarium: The visualized calvarium at the skull base appears intact. Brain parenchyma: Partially visualized brain parenchyma at the skull base is within normal limits. Sinuses and mastoids: The visualized paranasal sinuses are clear. There is a left mastoid effusion. T he right mastoid air cells are well pneumatized. Lung apices: Clear as visualized. IMPRESSION: 1. There is no evidence of fracture or subluxation involving the cervical spine. 2. Osteopenia and spondylotic change as above. ACT 112: Negative or not required by law. Electronically signed by: Александр Rowe M.D. 10/17/2022 5:06 PM
--- NOTE | 2022-10-17 17:11 | CT Scan Report ---
CT abd pelvis IV con only, CT lumbar spine w con CLINICAL HISTORY: fall, weakness, on xarelto TECHNIQUE: Helical axial images of the abdomen and pelvis were obtained and displayed. Automated dose lowering techniques and/or adjustment according to patient size were utilized for this exam. Dedicat ed images of the lumbar spine were obtained. This exam was performed with intravenous contrast. CT DOSE: 2421.68 mGy.cm COMPARISON: Comparison is made to CT abdomen pelvis 07/31/2019 FINDINGS: Lower chest: Bibasilar atelectasis versus scarring is seen. Biatrial enlargement and atherosclerosis in the coronary arteries noted.6 Liver: Unremarkable. No focal lesions are seen. Gallbladder and biliary tree: Cholelithiasis is seen without evidence of cholecystitis. No intra- or extrahepatic biliary ductal dilation. Pancreas: Fatty replacement of the pancreas is seen. Spleen: Unremarkable. Adrenals: Unremarkable. Kidneys and ureters: Perinephric stranding is noted bilaterally. Nonobstructive stones are seen. Bladder: Diffuse homogeneous wall thickening is seen. Reproductive organs: Unremarkable. Bowel: Unremarkable. Lymph nodes Retroperitoneal: Unremarkable. Pelvic: Unremarkable. Mesenteric: Unremarkable. Peritoneum: Normal. Vessels: Atherosclerotic calcifications are seen. Abdominal wall: Unremarkable. Bones: Old healed rib fractures are seen. Degenerative changes are seen in the spine. 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 IMPRESSION: No acute abnormalities, in particular no evidence of intra-abdominal hemorrhage or acute fracture. Ol d healed rib fractures and degenerative changes of the spine are seen. ACT 112: Negative or not required by law. Electronically signed by: Chuckie Gonzalez M.D. 10/17/2022 5:09 PM
[2022-10-17 17:18] LABS: Appearance Urine Clear (Clear); Bacteria Urine Automated Negative (Negative); Bilirubin Urine Negative (Negative); Blood Urine Negative (Negative); Color Urine Yellow; Glucose Urine UA Negative (Negative); Ketones Urine Negative (Negative); Leukocyte Esterase Urine Negative (Negative); Nitrite Urine Negative (Negative); Protein Urine 1+ (Negative); RBC Urine Automated 0-4 /hpf (0-4); Specific Gravity Urine 1.034 (1.000-1.030); Urobilinogen Urine Negative (Negative); pH Urine 5.5 (4.5-7.5)
[2022-10-17] MEDS ORDERED: OSELTAMIVIR PHOSPHATE 75 MG CAP PO STA (17:52)
--- NOTE | 2022-10-17 18:05 | History & Physical Report ---
Date of Service October 17, 2022 Assessment & Plan (1) Influenza A: Plan: Patient is influenza A we will begin on treatment with Tamiflu and supportive care (2) Diabetes type 2, controlled: Plan: Patient be on basal bolus insulin sliding scale coverage (3) Paroxysmal atrial fibrillation: Plan: Metoprolol 12.5 every morning plus Xarelto 20 Patient also takes lisinopril for blood pressure control and aspirin for secondary risk prevention for heart disease given he is a known stent in his LAD (4) Dyslipidemia: Plan: Rosuvastatin 40 (5) Chronic anticoagulation: Plan: Xarelto use for anticoagulation for his atrial fibrillation will also serve as DVT prevention (6) Benign prostatic hyperplasia with urinary obstruction: Plan: Continues on dutasteride. The patient has had chronic prostatitis at different times in his life and has chronic microscopic urea because of this. He has seen urology and there is no open diagnosis of prostate cancer ever made (7) Nontoxic multinodular goiter: Plan: TSH checked on presentation 0.375 History of Present Illness Primary Care Provider: [facility] 87-year-old male who is a resident of [facility] who presents with weakness and falling. Patient reportedly is too weak to stand. He is had a fairly complete work-up here in the emergency department and found to be influenza A positive although no evidence of influenza pneumonia. Patient has an occasional scant cough. Patient states he cannot get out of bed this morning because his legs would not work. In the ER had CT scan of his head without evidence of stroke. Additionally had CT of lumbar spine cervical spine without evidence of central nervous system impingement. Patient cannot return to his assisted living environment due to his inability to be able to stand walk or assist himself. This is felt possibly secondary to metabolic encephalopathy Patient has history of mild dementia although he is oriented x3. He has a history of diabetes with neuropathy and chronic kidney disease. Dyslipidemia paroxysmal atrial fibrillation on chronic anticoagulation coronary artery disease with a stent in his LAD, chronic microscopic hematuria and a nontoxic multinodular goiter Patient is being admitted for metabolic encephalopathy due to influenza A infection Allergies Allergy/AdvReac Type Severity Reaction Status Date / Time Sulfa (Sulfonamide Allergy Unknown UNKNOWN BY Verified 07/03/22 09:46 Antibiotics) PATIENT Home Medications Medication Instructions Recorded Confirmed Type cholecalciferol (vitamin D3) 25 1,000 units PO QAM 05/16/19 07/03/22 History mcg (1,000 unit) capsule aspirin 81 mg tablet,delayed 81 mg PO QAM 06/20/19 07/03/22 History release (Adult Low Dose Aspirin) ascorbate calcium (vitamin C) 500 500 mg PO QAM 03/28/20 07/03/22 History mg tablet vitamin B complex 1 cap PO QAM 04/05/20 07/03/22 History donepezil 10 mg tablet 10 mg PO QAM #90 tabs 10/26/20 07/03/22 Rx lisinopril 20 mg tablet 20 mg PO DAILY #90 tabs 06/05/21 07/03/22 Rx rosuvastatin 40 mg tablet 40 mg PO QAM #90 tabs 06/05/21 07/03/22 Rx metoprolol succinate 25 mg 12.5 mg PO QAM #90 tabs 06/17/21 07/03/22 Rx tablet,extended release 24 hr rivaroxaban 20 mg tablet (Xarelto) 20 mg PO QPM 06/29/21 07/03/22 History nitroglycerin 0.4 mg sublingual 0.4 mg sublingual DIRECTED PRN 08/29/21 07/03/22 Rx tablet Chest Pain #20 tabs dutasteride 0.5 mg capsule 0.5 mg PO DAILY #90 caps 09/24/21 07/03/22 Rx omeprazole 20 mg capsule,delayed See Rx Instructions .Route 09/30/21 07/03/22 Rx release .COMPLEX #90 caps blood glucose control, high #1 ea 11/12/21 07/03/22 Rx (OneTouch Verio High Control solution) lancets 33 gauge (OneTouch Delica #120 ea 12/11/21 07/03/22 Rx Lancets) OneTouch Verio test strips (blood #400 ea 12/13/21 07/03/22 Rx sugar diagnostic) pen needle, diabetic 32 gauge x #400 ea 12/13/21 07/03/22 Rx 5/32" (BD Ultra-Fine Ros Pen Needle) insulin degludec 100 unit/mL (3 15 unit subcut QAM 01/30/22 07/03/22 History mL) subcutaneous pen (Tresiba FlexTouch U-100 insulin) insulin aspart U-100 100 unit/mL 8 unit subcut .COMPLEX 05/21/22 07/03/22 History (3 mL) subcutaneous pen (Novolog Flexpen U-100 Insulin aspart) memantine 10 mg tablet 10 mg PO BID 90 days #180 tabs 07/03/22 Rx clotrimazole-betamethasone 1 1 applic topical .qhs #45 grams 08/19/22 08/19/22 Rx %-0.05 % topical cream Past Med/Surg History Medical History Abnormal electrocardiogram Acute hyperglycemia Acute hyponatremia Albuminuria Arteriosclerotic heart disease Benign prostatic hyperplasia 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 CHI (closed head injury) Chronic anticoagulation Chronic prostatitis Chronic rhinitis Closed rib fracture Coronary atherosclerosis of [place] coronary vessel (06/07/12) Diabetes type 2, controlled 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 Dupuytrens contracture Dysesthesia Dyslipidemia Elevated PSA Enlarged prostate with lower urinary tract symptoms (LUTS) Facial abrasion Fall from slip, trip, or stumble Former smoker Hematospermia Hypertension Laryngopharyngeal reflux Left shoulder strain Leukopenia Microscopic hematuria Mild aortic regurgitation Mild aortic stenosis Mild mitral regurgitation Myocardial infarction (06/07/12) Nephrolithiasis Nontoxic multinodular goiter Other and unspecified hyperlipidemia (06/07/12) Pancytopenia (~2000) PND (post-nasal drip) Rhabdomyolysis Right rib fracture Sepsis (06/07/12) Septicemia due to Gram-negative organism, unspecified (06/07/12) Vitamin D deficiency Weakness Surgical History History of arthroscopy of knee History of cataract surgery History of colonoscopy History of cystoscopy History of tonsillectomy S/P drug eluting coronary stent placement Status post Mohs surgery Family History Brother Coronary heart disease Father Angina pectoris Carcinoma of pancreas Myocardial infarction Mother Congestive heart failure Breast cancer Unknown Diabetes Heart disease Hypertension Daughter Breast cancer Denies family history of Ovarian cancer Prostate cancer Colorectal cancer Social History Smoking Status: Never smoker Tobacco Type: Cigarettes Second Hand Exposure: No; Hx Alcohol Use: No Hx Substance Use: No Preferred Language: Vincentian Communication Ability: Effective Visual Impairment: Limited Hearing Ability: Normal 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: No Beliefs That Will Affect Care: None marital status: / Current Living Situation: Other Current Living Situation Comment: Lives with girlfriend current occupational status: retired How many Children do You have: 3 Feels Safe at Home: Yes Childhood Exposure to Second-Hand Smoke: No caffeine: Yes Dental Care, Regularly: Yes Physical Activity Frequency: 1-2 Times per Week Seatbelt Use: always Sunscreen Use: Yes Assistive Devices: Glasses and Walker Review of Systems Review of Systems: Mild distress and fatigue no headache, no visual changes no speech or swallowing issues no chest pain, pressure or palpitations no shortness of breath, occasional nonproductive cough no wheezes no abdominal pain, nausea or vomiting, diarrhea or constipation no dysuria, hematuria or frequency no focal joint pain very scant peripheral edema is bilateral lower legs no back pain, CVA tenderness or radicular pain no bruising, bleeding or rashes no focal signs of weakness or numbness or altered sensation can lift his legs against gravity from the bed no complaints of anxiety or depression.. Physical Exam Physical Exam: The patient appeared well nourished and normally developed. Vital signs as documented. Head exam is normocephalic atraumatic Oropharynx with mild posterior pharynx erythema Neck is without JVD, thyromegaly, or carotid bruits. Lungs are clear to auscultation, no focal loss of breath sounds Cardiac exam, Rhythm is regular.. No murmurs, rubs or gallops. Abdominal exam reveals normal bowel sounds, soft non tender, no masses Extremities are nonedematous and both pedal pulses are present Neurological testing is alert and oriented x2 he does have some memory impairment but he does know he is in the hospital. In bed testing of strength was at least 4.5/5 in all extremities Skin is without bruises or rashes Psychologically is without concerns for anxiety or depression.. Results & Data Results & Data ([facility]) Vital Signs (Past 12 Hours) Vital Signs Temp Pulse Pulse Resp BP BP Pulse Ox 10/17/22 17:51 70 23 176/87 H 90 10/17/22 17:20 73 21 10/17/22 16:39 83 16 175/83 H 92 10/17/22 16:00 61 17 171/77 H 94 10/17/22 15:46 65 16 153/87 H 95 10/17/22 15:19 57 L 18 143/68 H 93 10/17/22 15:19 57 L 19 93 10/17/22 15:14 94 10/17/22 13:33 98.8 F 54 L 18 110/60 92 O2 Del Method 10/17/22 17:51 Room Air 10/17/22 17:20 10/17/22 16:39 Room Air 10/17/22 16:00 Room Air 10/17/22 15:46 Room Air 10/17/22 15:19 Room Air 10/17/22 15:19 Room Air 10/17/22 15:14 Room Air 10/17/22 13:33 Room Air Diagnostic Findings Chest X-Ray 10/17/22 13:43 XR chest 1V portable CLINICAL HISTORY: weakness COMPARISON STUDY: Chest radiograph and chest CT June 29, 2021. FINDINGS: No pneumothorax or pleural effusion is present. No consolidation. Cardiomegaly is unchanged. There is no evidence for pulmonary edema. The appearance of the chest is unchanged. There are multiple old left-sided rib fractures. IMPRESSION: No acute cardiopulmonary findings. No significant change in appearance of the chest. ACT 112: Negative or not required by law. Electronically signed by: Óscar Stubbs M.D. 10/17/2022 2:[address] 10/17/22 13:43 CT SCAN OF THE BRAIN WITHOUT IV CONTRAST CLINICAL HISTORY: Generalized weakness. Fall. COMPARISON STUDY: CT of the brain dated 11/25/2021. TECHNIQUE: Unenhanced axial CT scan of the brain is performed from the vertex to the skull base. A dose lowering technique was utilized adhering to the principles of ALARA. The patient was scanned twice due to motion artifact. FINDINGS: Brain parenchyma: There is age-related involutional change noting mild subcortical and periventricular microangiopathic disease. There is no hemorrhage, mass effect, or evidence of acute territorial ischemia by CT criteria. Nixon-white matter differentiation is preserved. No extra-axial fluid collection is seen. Ventricles, sulci, cisterns: Prominent secondary to involutional change. Intracranial vasculature: There is atherosclerotic calcification of the cavernous carotid and vertebral artery. Calvarium: The skeletal structures are osteopenic. No depressed calvarial fracture is seen. Sinuses and mastoids: There is mild mucosal thickening within the right maxillary antrum. Moderate mucosal thickening is noted within the frontal and ethmoid sinuses. There is a left mastoid effusion. The right mastoid air cells are well pneumatized. Orbits: The bony orbits are grossly intact. There are bilateral ocular lens implants. IMPRESSION: There is no hemorrhage, mass effect, or evidence of acute territorial ischemia by CT criteria. ACT 112: Negative or not required by law. Electronically signed by: Александр Rowe M.D. 10/17/2022 4:47 PM Abdomen/Pelvis CT 10/17/22 13:55 CT abd pelvis IV con only, CT lumbar spine w con CLINICAL HISTORY: fall, weakness, on xarelto TECHNIQUE: Helical axial images of the abdomen and pelvis were obtained and displayed. Automated dose lowering techniques and/or adjustment according to patient size were utilized for this exam. Dedicated images of the lumbar spine were obtained. This exam was performed with intravenous contrast. CT DOSE: 2421.68 mGy.cm COMPARISON: Comparison is made to CT abdomen pelvis 07/31/2019 FINDINGS: Lower chest: Bibasilar atelectasis versus scarring is seen. Biatrial enlargement and atherosclerosis in the coronary arteries noted.6 Liver: Unremarkable. No focal lesions are seen. Gallbladder and biliary tree: Cholelithiasis is seen without evidence of cholecystitis. No intra- or extrahepatic biliary ductal dilation. Pancreas: Fatty replacement of the pancreas is seen. Spleen: Unremarkable. Adrenals: Unremarkable. Kidneys and ureters: Perinephric stranding is noted bilaterally. Nonobstructive stones are seen. Bladder: Diffuse homogeneous wall thickening is seen. Reproductive organs: Unremarkable. Bowel: Unremarkable. Lymph nodes Retroperitoneal: Unremarkable. Pelvic: Unremarkable. Mesenteric: Unremarkable. Peritoneum: Normal. Vessels: Atherosclerotic calcifications are seen. Abdominal wall: Unremarkable. Bones: Old healed rib fractures are seen. Degenerative changes are seen in the spine. 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 IMPRESSION: No acute abnormalities, in particular no evidence of intra-abdominal hemorrhage or acute fracture. Old healed rib fractures and degenerative changes of the spine are seen. ACT 112: Negative or not required by law. Electronically signed by: Chuckie Gonzalez M.D. 10/17/2022 5:[address] 10/17/22 13:55 CT SCAN OF THE CERVICAL SPINE CLINICAL HISTORY: Trauma. Fall COMPARISON STUDY: CT of the cervical spine dated 11/25/2021. TECHNIQUE: CT scan of the cervical spine is performed from the skull base to the upper thoracic spine. Images are reviewed in the axial, sagittal, and coronal planes. IV contrast was not administered for this examination. A dose lowering technique was utilized adhering to the principles of ALARA. FINDINGS: Skeletal structures: The skeletal structures are osteopenic. There is no evidence of fracture or subluxation involving the cervical spine. Vertebral body height is maintained. There is minimal anterolisthesis at C4-C5. Alignment is preserved. There is straightening of the cervical lordosis with reversal centered at C4-C5. Large anterior osteophytes are seen throughout. The odontoid process and lateral masses are intact. The atlantoaxial articulation is preserved note is productive degenerative change. The spinous processes appear intact. There is moderate multilevel cervical spondylosis. Uncovertebral and facet arthropathy contribute to foraminal narrowing at several levels. Intervertebral discs: There is moderate to severe disc space narrowing at all cervical levels between C3-C4 and C6-C7 with multilevel endplate sclerosis. Central canal: Posterior disc osteophyte complexes are seen at all cervical levels between C3-C4 and C6-C7. This likely contributes to multilevel acquired compromise of the central canal. Soft tissues: The prevertebral and paraspinous soft tissues are within normal limits. There is atherosclerotic calcification of the carotid bulbs. Calvarium: The visualized calvarium at the skull base appears intact. Brain parenchyma: Partially visualized brain parenchyma at the skull base is within normal limits. Sinuses and mastoids: The visualized paranasal sinuses are clear. There is a left mastoid effusion. The right mastoid air cells are well pneumatized. Lung apices: Clear as visualized. IMPRESSION: 1. There is no evidence of fracture or subluxation involving the cervical spine. 2. Osteopenia and spondylotic change as above. ACT 112: Negative or not required by law. Electronically signed by: Александр Rowe M.D. 10/17/2022 5:[address] 10/17/22 13:55 CT abd pelvis IV con only, CT lumbar spine w con CLINICAL HISTORY: fall, weakness, on xarelto TECHNIQUE: Helical axial images of the abdomen and pelvis were obtained and displayed. Automated dose lowering techniques and/or adjustment according to patient size were utilized for this exam. Dedicated images of the lumbar spine were obtained. This exam was performed with intravenous contrast. CT DOSE: 2421.68 mGy.cm COMPARISON: Comparison is made to CT abdomen pelvis 07/31/2019 FINDINGS: Lower chest: Bibasilar atelectasis versus scarring is seen. Biatrial enlargement and atherosclerosis in the coronary arteries noted.6 Liver: Unremarkable. No focal lesions are seen. Gallbladder and biliary tree: Cholelithiasis is seen without evidence of cholecystitis. No intra- or extrahepatic biliary ductal dilation. Pancreas: Fatty replacement of the pancreas is seen. Spleen: Unremarkable. Adrenals: Unremarkable. Kidneys and ureters: Perinephric stranding is noted bilaterally. Nonobstructive stones are seen. Bladder: Diffuse homogeneous wall thickening is seen. Reproductive organs: Unremarkable. Bowel: Unremarkable. Lymph nodes Retroperitoneal: Unremarkable. Pelvic: Unremarkable. Mesenteric: Unremarkable. Peritoneum: Normal. Vessels: Atherosclerotic calcifications are seen. Abdominal wall: Unremarkable. Bones: Old healed rib fractures are seen. Degenerative changes are seen in the spine. 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 IMPRESSION: No acute abnormalities, in particular no evidence of intra-abdominal hemorrhage or acute fracture. Old healed rib fractures and degenerative changes of the spine are seen. ACT 112: Negative or not required by law. Electronically signed by: Chuckie Gonzalez M.D. 10/17/2022 5:09 PM ECG Additional Comments: Sinus rhythm first-degree AV block left bundle branch block PG Care Time/CCT Total # of Minutes Spent Total Time Spent with Patient: Total time spent is greater than 50% in coordination of care (as documented) at patient's floor/unit and/or counseling patient: Coding Level of Care Code 06984 Initial Inpt Care Lvl 3 Diagnoses Influenza A J10.1 Diabetes type 2, controlled E11.9 Paroxysmal atrial fibrillation I48.0 Dyslipidemia E78.5 Chronic anticoagulation Z79.01 Benign prostatic hyperplasia with urinary obstruction N40.1; N13.8 Nontoxic multinodular goiter E04.2
[2022-10-17] MEDS ORDERED: CARBOHYDRATES FOR HYPOGLYCEMIA PO PRN (19:51)
[2022-10-17] MEDS ORDERED: GLUCOSE 10 TAB/TUBE PO PRN (19:51)
[2022-10-17] MEDS ORDERED: ONDANSETRON INJ 2 MG/ML 2 ML VIAL IV PRN (19:51)
[2022-10-17] MEDS ORDERED: DEXTROSE 50% 50 ML SYRINGE IV PRN (19:51)
[2022-10-17] MEDS ORDERED: ALUMINUM/MAGNESIUM SUSP 30 ML UDC PO PRN (19:51)
[2022-10-17] MEDS ORDERED: ACETAMINOPHEN 500 MG TAB PO PRN (19:51)
[2022-10-17] MEDS ORDERED: GLUCOSE 40% GEL 15 GM TUBE PO PRN (19:51)
[2022-10-17] MEDS ORDERED: GLUCAGON FOR INJ 1 MG VIAL SQ PRN (19:51)
--- NOTE | 2022-10-17 20:12 | Electrocardiogram Report ---
Test Reason : Blood Pressure : / mmHG Vent. Rate : 057 BPM Atrial Rate : 057 BPM P-R Int : 290 ms QRS Dur : 150 ms QT Int : 470 ms P-R-T Axes : 070 -53 096 degrees QTc Int : 457 ms Poor data quality, interpretation may be adversely affected Sinus bradycardia with 1st degree A-V block Left axis deviation Left bundle branch block Abnormal ECG When compared with ECG of 25-NOV-2021 10:07, No significant change was found Confirmed by Kanu Thakur ([id number]) on 10/17/2022 8:12:03 PM Referred By: REFERRED SELF Confirmed By:Amado Thakur
[2022-10-17] MEDS: MEMANTINE HCL 10 MG TAB PO SCH (21:14)
[2022-10-17] MEDS: RIVAROXABAN 20 MG TAB PO SCH (21:15)
[2022-10-17] MEDS: INSULIN ASPART PER UNIT SC SCH (21:22)
[2022-10-18] MEDS: OSELTAMIVIR PHOSPHATE 75 MG CAP PO SCH ×2 (09:05→19:56)
[2022-10-18] MEDS: MEMANTINE HCL 10 MG TAB PO SCH ×2 (09:05→19:56)
[2022-10-18] MEDS: DONEPEZIL HCL 10 MG TAB PO SCH (09:05)
[2022-10-18] MEDS: ROSUVASTATIN CALCIUM 20 MG TAB PO SCH (09:05)
[2022-10-18] MEDS: ASPIRIN 81 MG ECTAB PO SCH (09:05)
[2022-10-18] MEDS: PANTOprazole 40 MG TAB PO SCH (09:05)
[2022-10-18] MEDS: METOPROLOL SUCC 25MG EXT REL TAB PO SCH (09:05)
[2022-10-18] MEDS: lisinopril 20 MG TAB PO SCH (09:05)
[2022-10-18] MEDS: CHOLECALCIFEROL 1,000 UNITS 25 MCG TAB PO SCH (09:05)
[2022-10-18] MEDS: ASCORBIC ACID 500 MG TAB PO SCH (09:06)
[2022-10-18] MEDS: LANTUS PER UNIT CHARGE SQ SCH (09:09)
[2022-10-18] MEDS: INSULIN ASPART PER UNIT SC SCH ×4 (09:09→20:18)
[2022-10-18 09:15] LABS: Hematocrit (blood only) 37.8 % (40.1-51.0); Hemoglobin 12.9 g/dl (14.0-18.0); Mean Platelet Volume 9.2 fL (9.4-12.4); Platelet Count 115 K/uL (130-400); White Blood Count 4.06 K/ul (4.8-10.8)
[2022-10-18 09:41] LABS: BUN Creatinine Ratio 16.5 (10-20); Calcium 8.9 mg/dl (8.5-10.1); Creatinine Clr Calc Pharmacy 67.2 ml/min; Est GFR (African American) 90.8 ml/min; Est GFR (Non-African American) 78.3 ml/min; Potassium 3.8 mmol/L (3.5-5.1)
[2022-10-18 09:46] LABS: Mean Corpuscular Hemoglobin 31.9 pg (25.0-34.0); Mean Corpuscular Hgb Conc 34.1 g/dL (32.0-36.0); Mean Corpuscular Volume 93.3 fL (80.0-100.0); RDW Coefficient of Variation 13.5 % (11.5-14.5); RDW Standard Deviation 46.4 fL (36.4-46.3); Red Blood Count 4.05 M/uL (4.63-6.08)
[2022-10-18 10:33] LABS: Estimated Average Glucose 140 mg/dl; Hemoglobin A1C 6.5 % (4.5-5.6)
--- NOTE | 2022-10-18 14:59 | Hospitalist Progress Note ---
Date of Service October 18, 2022 Assessment & Plan (1) Influenza A: Plan: Improving. Continue Tamiflu therapy for 5 days. (2) Diabetes type 2, controlled: Plan: ADA diet. Basal insulin coverage. Sliding scale coverage as needed (3) Paroxysmal atrial fibrillation: Plan: Controlled rate with metoprolol. Continue Xarelto. (4) Dyslipidemia: Plan: Treated with statin therapy (5) Chronic anticoagulation: Plan: Xarelto therapy use for anticoagulation for his atrial fibrillation also serves as DVT prevention (6) Benign prostatic hyperplasia with urinary obstruction: Plan: Continues on dutasteride. Stable (7) Nontoxic multinodular goiter: Plan: TSH 0.375. Stable Plan Anticipate discharge back to [facility] tomorrow, October 19, on Tamiflu to complete a 5-day course Admission and Anticipated Discharge Date Admission Date: October 17, 2022 Subjective Alert and oriented. No distress. Main complaint is generalized weakness which has improved since admission. Is being treated for influenza type a with Tamiflu. He probably can return to [facility] personal-senior care tomorrow, October 19 Review of Systems Constitutional: Constitutional-no fever or chills ENT-no blurred vision, no double vision, no epistaxis, no sore throat Respiratory-no cough, no wheezing, no shortness of breath Cardiac-no palpitations, no chest pain, no syncope GI-no nausea, vomiting, diarrhea, melena, hematochezia -no urinary retention, no urinary incontinence, no dysuria, no hematuria Musculoskeletal-no joint pain, no muscle tenderness. Generalized weakness is improving Skin-no bruising, no rashes, no pruritus Neuro-no isolated weakness, no paresthesia. Generalized weakness is improving Psych-no depression, no anxiety Physical Exam Physical Exam: General-alert and oriented x3, no fevers, no chills HEENT-head atraumatic and normocephalic, pupils equal and reactive to light, extraocular muscles intact Neck-no lymphadenopathy or thyromegaly, trachea midline Chest-clear to auscultation percussion. No rales wheezing or rhonchi Cardiac-regular rate and rhythm, normal S1 and S2 Abdomen-normal bowel sounds, nontender, no hepatosplenomegaly Extremities-no cyanosis, clubbing, or edema Neuro-cranial nerves II through XII intact, motor and sensory function within normal limits, strength symmetrical , no focal deficits Psych-normal affect, normal mood Results & Data Results & Data ([facility]) Vital Signs (Past 12 Hours) Vital Signs Temp Pulse BP Pulse Ox O2 Del Method 10/18/22 06:12 37.8 C H 60 169/77 H 92 Room Air Laboratory Results 10/18/22 08:42 10/18/22 08:42 PG Care Time/CCT Total # of Minutes Spent Total Time Spent with Patient: Total time spent is greater than 50% in coordination of care (as documented) at patient's floor/unit and/or counseling patient: Coding Level of Care Code 77620 Subseq Hosp Care Lvl 3 Diagnoses Influenza A J10.1 Diabetes type 2, controlled E11.9 Paroxysmal atrial fibrillation I48.0 Dyslipidemia E78.5 Chronic anticoagulation Z79.01 Benign prostatic hyperplasia with urinary obstruction N40.1; N13.8 Nontoxic multinodular goiter E04.2
[2022-10-18] MEDS: RIVAROXABAN 20 MG TAB PO SCH (16:07)
[2022-10-19 08:57] LABS: Hematocrit (blood only) 36.5 % (40.1-51.0); Hemoglobin 12.4 g/dl (14.0-18.0); Mean Platelet Volume 9.2 fL (9.4-12.4); Platelet Count 113 K/uL (130-400); White Blood Count 2.09 K/ul (4.8-10.8)
[2022-10-19] MEDS: CHOLECALCIFEROL 1,000 UNITS 25 MCG TAB PO SCH (09:02)
[2022-10-19] MEDS: ASCORBIC ACID 500 MG TAB PO SCH (09:02)
[2022-10-19] MEDS: METOPROLOL SUCC 25MG EXT REL TAB PO SCH (09:02)
[2022-10-19] MEDS: PANTOprazole 40 MG TAB PO SCH (09:02)
[2022-10-19] MEDS: ROSUVASTATIN CALCIUM 20 MG TAB PO SCH (09:02)
[2022-10-19] MEDS: OSELTAMIVIR PHOSPHATE 75 MG CAP PO SCH ×2 (09:02→20:20)
[2022-10-19] MEDS: MEMANTINE HCL 10 MG TAB PO SCH ×2 (09:02→20:19)
[2022-10-19] MEDS: lisinopril 20 MG TAB PO SCH (09:02)
[2022-10-19] MEDS: DONEPEZIL HCL 10 MG TAB PO SCH (09:03)
[2022-10-19] MEDS: ASPIRIN 81 MG ECTAB PO SCH (09:03)
[2022-10-19] MEDS: LANTUS PER UNIT CHARGE SQ SCH (09:04)
[2022-10-19] MEDS: INSULIN ASPART PER UNIT SC SCH ×4 (09:05→21:38)
[2022-10-19 09:25] LABS: BUN Creatinine Ratio 19.8 (10-20); Calcium 8.7 mg/dl (8.5-10.1); Creatinine Clr Calc Pharmacy 62.7 ml/min; Est GFR (African American) 87.5 ml/min; Est GFR (Non-African American) 75.5 ml/min; Potassium 3.6 mmol/L (3.5-5.1)
[2022-10-19 09:41] LABS: Mean Corpuscular Volume 94.1 fL (80.0-100.0); RDW Coefficient of Variation 13.6 % (11.5-14.5); RDW Standard Deviation 46.7 fL (36.4-46.3); Red Blood Count 3.88 M/uL (4.63-6.08)
--- NOTE | 2022-10-19 12:50 | Discharge Summary ---
Date of Service October 19, 2022 Admission HPI Per Admitting Provider 87-year-old male who is a resident of [facility] who presents with weakness and falling. Patient reportedly is too weak to stand. He is had a fairly complete work-up here in the emergency department and found to be influenza A positive although no evidence of influenza pneumonia. Patient has an occasional scant cough. Patient states he cannot get out of bed this morning because his legs would not work. In the ER had CT scan of his head without evidence of stroke. Additionally had CT of lumbar spine cervical spine without evidence of central nervous system impingement. Patient cannot return to his assisted living environment due to his inability to be able to stand walk or assist himself. This is felt possibly secondary to metabolic encephalopathy Patient has history of mild dementia although he is oriented x3. He has a history of diabetes with neuropathy and chronic kidney disease. Dyslipidemia paroxysmal atrial fibrillation on chronic anticoagulation coronary artery disea se with a stent in his LAD, chronic microscopic hematuria and a nontoxic multinodular goiter Patient is being admitted for metabolic encephalopathy due to influenza A infection Principal Diagnosis Influenza A, generalized weakness, metabolic encephalopathy Discharge Exam General-alert and oriented x3, no fevers, no chills HEENT-head atraumatic and normocephalic, pupils equal and reactive to light, extraocular muscles intact Neck-no lymphadenopathy or thyromegaly, trachea midline Chest-clear to auscultation percussion. No rales wheezing or rhonchi Cardiac-regular rate and rhythm, normal S1 and S2 Abdomen-normal bowel sounds, nontender, no hepatosplenomegaly Extremities-no cyanosis, clubbing, or edema Neuro-cranial nerves II through XII intact, motor and sensory function within normal limits, strength symmetrical , no focal deficits Psych-normal affect, normal mood Discharge Data Allergies Allergy/AdvReac Type Severity Reaction Status Date / Time Sulfa (Sulfonamide Allergy Unknown UNKNOWN BY Verified 10/17/22 18:57 Antibiotics) PATIENT Ordered Studies 10/17/22 13:43 CT head/brain wo con Stat 10/17/22 13:55 CT abd pelvis IV con only Stat CT cervical spine wo con Stat CT lumbar spine w con Stat Hospital Course (1) Influenza A: Improving. Continue Tamiflu therapy for 5 days. (2) Diabetes type 2, controlled: ADA diet. Basal insulin coverage. Sliding scale coverage as needed while hospitalized. Resume his usual medications at discharge (3) Paroxysmal atrial fibrillation: Controlled rate with metoprolol. Continue Xarelto. (4) Dyslipidemia: Treated with statin therapy (5) Chronic anticoagulation: Xarelto therapy use for anticoagulation for his atrial fibrillation also serves as DVT prevention (6) Benign prostatic hyperplasia with urinary obstruction: Continues on dutasteride. Stable (7) Nontoxic multinodular goiter: TSH 0.375. Stable Plan discharge back to [facility] today , October 19, on Tamiflu to complete a 5- day course Total Time Total Time Spent Total Time Spent (In Minutes): 35 minutes Discharge Plan Discharge Items Patient Disposition: Personal Skilled Nursing Reason For Visit: METABOLIC ENCEPHALOPATHY SECONDARY TO INFLUENZA A Discharge Diagnosis: Influenza A, generalized weakness, metabolic encephalopathy Activity: Resume your previous activity Non-emergency contact: Primary Care Provider Call non-emergency contact if: you have any medication questions Follow-up/Referrals: Loraine Livingston [Primary Care Provider] - Diet: Carb Consistent or DM2 and Heart Healthy Addtl Attending Provider Instructions: Take Tamiflu for 3 more days Pending Studies at Discharge: No Stand-Alone Forms: [employer], Smoking Cessation Skilled Items Patient informed of condition?: Yes DNR: Yes Discharge Level of Care: Other Communicable Disease: No Discharge Prognosis: Improving Lines: None Urinary Catheter: No Medications and DC Order Prescriptions: New oseltamivir [Tamiflu] 75 mg Capsule See Rx Instructions .ROUTE .COMPLEX Qty: 6 0RF Rx Instructions: 75 mg orally twice a day for 3 more days Continued donepezil 10 mg tablet 10 mg PO QAM Qty: 90 3RF rosuvastatin 40 mg tablet 40 mg PO QAM Qty: 90 3RF lisinopril 20 mg tablet 20 mg PO DAILY Qty: 90 3RF nitroglycerin 0.4 mg tablet, sublingual 0.4 mg SL DIRECTED PRN (Reason: Chest Pain) Qty: 20 1RF (DME) lancets [OneTouch Delica Lancets] 33 gauge misc See Dose Instructions .ROUTE .MEDSUPPLY Qty: 120 5RF Rx Instructions: Test blood sugars 4 times a day (DME) pen needle, diabetic [BD Ultra-Fine Ros Pen Needle] 32 gauge x 5/32" needle See Rx Instructions .ROUTE .MEDSUPPLY Qty: 400 1RF Rx Instructions: Use to inject insulin 4x per day (DME) OneTouch Verio test strips Strip See Dose Instructions .ROUTE .MEDSUPPLY Qty: 400 3RF Rx Instructions: Test blood sugars 4 times a day: fasting, before lunch, before supper, before bed memantine 10 mg tablet 10 mg PO BID 90 Days Qty: 180 2RF metoprolol succinate 25 mg tablet extended release 24 hr 12.5 mg PO QAM Qty: 90 3RF (DME) OneTouch Verio High Control Solution See Rx Instructions .Route Qty: 1 0RF Rx Instructions: As directed clotrimazole-betamethasone 1-0.05 % cream 1 applic topical .qhs Qty: 45 11RF Rx Instructions: Apply small/pea-sized amount topically before bed ascorbate calcium (vitamin C) 500 mg tablet 500 mg PO QAM vitamin B complex Capsule 1 cap PO QAM cholecalciferol (vitamin D3) 1,000 unit capsule 1,000 units PO QAM aspirin [Adult Low Dose Aspirin] 81 mg tablet,delayed release (DR/EC) 81 mg PO QAM dutasteride 0.5 mg capsule 0.5 mg PO DAILY Qty: 90 3RF Tresiba FlexTouch U-100 100 unit/mL (3 mL) insulin pen 15 unit subcut QAM Hold Instructions: tyring nph insulin aspart U-100 [Novolog Flexpen U-100 Insulin] 100 unit/mL (3 mL) insulin pen 8 unit subcut .COMPLEX Rx Instructions: 8 units subcut 15 min before meals (three times per day); Xarelto 20 mg tablet 20 mg PO QPM Rx Instructions: must administer with evening meal omeprazole 20 mg capsule,delayed release(DR/EC) 20 mg PO DAILYBB Rx Instructions: TAKE 1 CAPSULE BY MOUTH EVERY DAY Discharge Orders: Discharge Order (Routine); Ordered 10/19/22 Ordered By: Terry Robledo Admission Data Admit Date/Time: 10/17/22 18:21 Attending Provider: Terry Robledo Admit Provider: Gennaro Franklin [facility] Level [facility] Care Code D/C DAY MANAGEMENT >30 MINS Diagnoses Influenza A J10.1 Diabetes type 2, controlled E11.9 Paroxysmal atrial fibrillation I48.0 Dyslipidemia E78.5 Chronic anticoagulation Z79.01 Benign prostatic hyperplasia with urinary obstruction N40.1; N13.8 Nontoxic multinodular goiter E04.2
--- NOTE | 2022-10-19 13:52 | Hospitalist Progress Note ---
Date of Service October 19, 2022 Assessment & Plan (1) Influenza A: Plan: Improving with Tamiflu, day 3 of 5. Continue supportive care (2) Diabetes type 2, controlled: Plan: ADA diet. Basal insulin therapy. Sliding scale insulin coverage while hospitalized (3) Paroxysmal atrial fibrillation: Plan: Controlled with medication. Continue Xarelto (4) Dyslipidemia: Plan: Diet control (5) Chronic anticoagulation: Plan: Continue Xarelto therapy (6) Benign prostatic hyperplasia with urinary obstruction: Plan: Stable with current medication management (7) Nontoxic multinodular goiter: Plan: Stable with current medication management Plan Anticipate discharge back to [facility] personal-long term tomorrow, October 20 to complete his short course of Tamiflu Admission and Anticipated Discharge Date Admission Date: October 17, 2022 Subjective Alert and oriented. He is feeling better. He remains on room air. Anticipated discharge back to the [facility] has been delayed for technical issues. Hopefully he can be discharged tomorrow, October 20 Review of Systems Review of Systems: Constitutional-no fever or chills ENT-no blurred vision, no double vision, no epistaxis, no sore throat Respiratory-no cough, no wheezing, no shortness of breath Cardiac-no palpitations, no chest pain, no syncope GI-no nausea, vomiting, diarrhea, melena, hematochezia -no urinary retention, no urinary incontinence, no dysuria, no hematuria Musculoskeletal-no joint pain, no muscle tenderness Skin-no bruising, no rashes, no pruritus Neuro-no isolated weakness, no paresthesia, no weakness Psych-no depression, no anxiety Physical Exam Physical Exam: General-alert and oriented x3, no fevers, no chills HEENT-head atraumatic and normocephalic, pupils equal and reactive to light, extraocular muscles intact Neck-no lymphadenopathy or thyromegaly, trachea midline Chest-scattered bilateral rhonchi. No rales or wheezing Cardiac-regular rate and rhythm, normal S1 and S2, no murmurs Abdomen-normal bowel sounds, nontender, no hepatosplenomegaly Extremities-no cyanosis, clubbing, or edema Neuro-cranial nerves II through XII intact, motor and sensory function within normal limits, strength symmetrical , no focal deficits Psych-normal affect, normal mood Results & Data Results & Data ([facility]) Vital Signs (Past 12 Hours) Vital Signs Temp Pulse Resp BP Pulse Ox O2 Del Method 10/19/22 08:02 Room Air 10/19/22 07:05 36.4 C L 57 L 16 165/76 H 92 Room Air Laboratory Results 10/19/22 08:10 10/19/22 08:10 PG Care Time/CCT Total # of Minutes Spent Total Time Spent with Patient: Total time spent is greater than 50% in coordination of care (as documented) at patient's floor/unit and/or counseling patient: Coding Level of Care Code 64820 Subseq Hosp Care Lvl 3 Diagnoses Influenza A J10.1 Diabetes type 2, controlled E11.9 Paroxysmal atrial fibrillation I48.0 Dyslipidemia E78.5 Chronic anticoagulation Z79.01 Benign prostatic hyperplasia with urinary obstruction N40.1; N13.8 Nontoxic multinodular goiter E04.2
[2022-10-19] MEDS: RIVAROXABAN 20 MG TAB PO SCH (18:35)
[2022-10-20 07:47] LABS: Hematocrit (blood only) 37.5 % (40.1-51.0); Mean Platelet Volume 9.4 fL (9.4-12.4); Platelet Count 127 K/uL (130-400)
[2022-10-20] MEDS: ASCORBIC ACID 500 MG TAB PO SCH (08:03)
[2022-10-20] MEDS: DONEPEZIL HCL 10 MG TAB PO SCH (08:03)
[2022-10-20] MEDS: ASPIRIN 81 MG ECTAB PO SCH (08:03)
[2022-10-20] MEDS: ROSUVASTATIN CALCIUM 20 MG TAB PO SCH (08:03)
[2022-10-20] MEDS: CHOLECALCIFEROL 1,000 UNITS 25 MCG TAB PO SCH (08:03)
[2022-10-20] MEDS: PANTOprazole 40 MG TAB PO SCH (08:03)
[2022-10-20] MEDS: METOPROLOL SUCC 25MG EXT REL TAB PO SCH (08:03)
[2022-10-20] MEDS: OSELTAMIVIR PHOSPHATE 75 MG CAP PO SCH ×2 (08:04→19:48)
[2022-10-20] MEDS: MEMANTINE HCL 10 MG TAB PO SCH ×2 (08:04→19:47)
[2022-10-20] MEDS: lisinopril 20 MG TAB PO SCH (08:04)
[2022-10-20 08:13] LABS: BUN Creatinine Ratio 20.5 (10-20); Calcium 8.7 mg/dl (8.5-10.1); Creatinine Clr Calc Pharmacy 68.8 ml/min; Est GFR (African American) 91.7 ml/min; Est GFR (Non-African American) 79.1 ml/min; Potassium 3.4 mmol/L (3.5-5.1)
[2022-10-20 08:39] LABS: Mean Corpuscular Hemoglobin 32.6 pg (25.0-34.0); Mean Corpuscular Hgb Conc 34.7 g/dL (32.0-36.0); RDW Coefficient of Variation 13.4 % (11.5-14.5); Red Blood Count 3.99 M/uL (4.63-6.08)
[2022-10-20] MEDS: INSULIN ASPART PER UNIT SC SCH ×4 (09:05→21:26)
[2022-10-20] MEDS: LANTUS PER UNIT CHARGE SQ SCH (09:05)
--- NOTE | 2022-10-20 16:15 | Hospitalist Progress Note ---
Date of Service October 20, 2022 Assessment & Plan (1) Influenza A: Plan: Improving with Tamiflu, day 4 of 5. Continue supportive care Patient still has some cough and mild SOB (2) Diabetes type 2, controlled: Plan: ADA diet. Basal insulin therapy. Sliding scale insulin coverage while hospitalized (3) Paroxysmal atrial fibrillation: Plan: Controlled with medication. Continue Xarelto (4) Dyslipidemia: Plan: Diet control (5) Chronic anticoagulation: Plan: Continue Xarelto therapy (6) Benign prostatic hyperplasia with urinary obstruction: Plan: Stable with current medication management (7) Nontoxic multinodular goiter: Plan: Stable with current medication management Plan Anticipate discharge back to [facility] personal-[facility] tomorrow, Admission and Anticipated Discharge Date Admission Date: October 17, 2022 Subjective Alert and oriented. He is feeling better. He remains on room air. Anticipated discharge back to the [facility] has been delayed for technical issues. He wants to go back home Review of Systems Review of Systems: All systems reviewed are negative, apart from the ones contained in the history. Physical Exam Physical Exam: The patient is awake, alert and oriented 3, well developed and well nourished, normocephalic and atraumatic, lying in bed and in no acute distress. HEENT--PERRL, EOMI, mucous membranes and oropharynx mildly dry Neck--supple. No JVD. No bruits. Thyroid normal, trachea midline, no adenopathy. Heart--normal S1 and S2. No murmurs, rubs or gallops. Lungs--clear bilaterally, no respiratory distress, no accessory muscle use. Abdomen--normal bowel sounds and soft. Mild epigastric and left sided abdominal pain Extremities--no cyanosis or clubbing. No edema. Dermatologic--normal skin turgor, normal color, no abnormal lymph nodes, no rash. Neurologic--cranial nerves II through XII grossly intact. Rheumatologic--normal range of motion. Psychiatric--normal affect. Results & Data Results & Data ([facility]) Vital Signs (Past 12 Hours) Vital Signs Temp Pulse Resp BP Pulse Ox O2 Del Method 10/20/22 15:18 94 10/20/22 08:45 Room Air 10/20/22 07:58 97.9 F 56 L 16 179/84 H 94 Room Air PG Care Time/CCT Total # of Minutes Spent Total Time Spent with Patient: Total time spent is greater than 50% in coordination of care (as documented) at patient's floor/unit and/or counseling patient: Coding Level of Care Code 93519 Subseq Hosp Care Lvl 2 Diagnoses Influenza A J10.1 Diabetes type 2, controlled E11.9 Paroxysmal atrial fibrillation I48.0 Dyslipidemia E78.5 Chronic anticoagulation Z79.01 Benign prostatic hyperplasia with urinary obstruction N40.1; N13.8 Nontoxic multinodular goiter E04.2 Time Spent (min) 35
[2022-10-20] MEDS: RIVAROXABAN 20 MG TAB PO SCH (17:05)
[2022-10-21] MEDS: DONEPEZIL HCL 10 MG TAB PO SCH (09:23)
[2022-10-21] MEDS: OSELTAMIVIR PHOSPHATE 75 MG CAP PO SCH ×2 (09:23→20:07)
[2022-10-21] MEDS: ASPIRIN 81 MG ECTAB PO SCH (09:23)
[2022-10-21] MEDS: PANTOprazole 40 MG TAB PO SCH (09:23)
[2022-10-21] MEDS: MEMANTINE HCL 10 MG TAB PO SCH ×2 (09:23→20:06)
[2022-10-21] MEDS: lisinopril 20 MG TAB PO SCH (09:24)
[2022-10-21] MEDS: CHOLECALCIFEROL 1,000 UNITS 25 MCG TAB PO SCH (09:24)
[2022-10-21] MEDS: ROSUVASTATIN CALCIUM 20 MG TAB PO SCH (09:24)
[2022-10-21] MEDS: METOPROLOL SUCC 25MG EXT REL TAB PO SCH (09:24)
[2022-10-21] MEDS: ASCORBIC ACID 500 MG TAB PO SCH (09:24)
[2022-10-21] MEDS: LANTUS PER UNIT CHARGE SQ SCH (09:30)
[2022-10-21] MEDS: INSULIN ASPART PER UNIT SC SCH ×4 (09:30→21:20)
[2022-10-21 10:55] LABS: Hematocrit (blood only) 36.5 % (40.1-51.0); Hemoglobin 12.7 g/dl (14.0-18.0); Mean Platelet Volume 9.1 fL (9.4-12.4); Platelet Count 127 K/uL (130-400); White Blood Count 2.46 K/ul (4.8-10.8)
[2022-10-21 11:24] LABS: Mean Corpuscular Hemoglobin 32.5 pg (25.0-34.0); Mean Corpuscular Hgb Conc 34.8 g/dL (32.0-36.0); Mean Corpuscular Volume 93.4 fL (80.0-100.0); RDW Coefficient of Variation 13.3 % (11.5-14.5); RDW Standard Deviation 45.7 fL (36.4-46.3); Red Blood Count 3.91 M/uL (4.63-6.08)
[2022-10-21 11:30] LABS: BUN Creatinine Ratio 19.8 (10-20); Calcium 8.7 mg/dl (8.5-10.1); Creatinine Clr Calc Pharmacy 66.4 ml/min; Est GFR (African American) 90.4 ml/min; Potassium 3.9 mmol/L (3.5-5.1)
--- NOTE | 2022-10-21 14:18 | Hospitalist Progress Note ---
Date of Service October 21, 2022 Assessment & Plan (1) Influenza A: Plan: Positive for Influenza Improving with Tamiflu, day 5 of 5. Continue supportive care Patient still has some cough and mild SOB Clinically much improved (2) Diabetes type 2, controlled: Plan: ADA diet. Basal insulin therapy. Sliding scale insulin coverage while hospitalized (3) Paroxysmal atrial fibrillation: Plan: Controlled with medication. Continue Xarelto (4) Dyslipidemia: Plan: Diet control (5) Chronic anticoagulation: Plan: Continue Xarelto therapy (6) Benign prostatic hyperplasia with urinary obstruction: Plan: Stable with current medication management (7) Nontoxic multinodular goiter: Plan: Stable with current medication management Plan Plan is rehab when accepted Admission and Anticipated Discharge Date Admission Date: October 17, 2022 Subjective Alert and oriented. He is feeling better. He remains on room air. Anticipated discharge back to the [facility] has been delayed, son wants him to go to rehab for a few days Review of Systems Review of Systems: All systems reviewed are negative, apart from the ones contained in the history. Physical Exam Physical Exam: The patient is awake, alert and oriented 3, well developed and well nourished, normocephalic and atraumatic, lying in bed and in no acute distress. HEENT--PERRL, EOMI, mucous membranes and oropharynx mildly dry Neck--supple. No JVD. No bruits. Thyroid normal, trachea midline, no adenopathy. Heart--normal S1 and S2. No murmurs, rubs or gallops. Lungs--clear bilaterally, no respiratory distress, no accessory muscle use. Abdomen--normal bowel sounds and soft. Mild epigastric and left sided abdominal pain Extremities--no cyanosis or clubbing. No edema. Dermatologic--normal skin turgor, normal color, no abnormal lymph nodes, no rash. Neurologic--cranial nerves II through XII grossly intact. Rheumatologic--normal range of motion. Psychiatric--normal affect. Results & Data Results & Data ([facility]) Vital Signs (Past 12 Hours) Vital Signs Temp Pulse Resp BP Pulse Ox O2 Del Method 10/21/22 09:20 Room Air 10/21/22 07:39 97.3 F L 54 L 18 186/81 H 94 Room Air PG Care Time/CCT Total # of Minutes Spent Total Time Spent with Patient: Total time spent is greater than 50% in coordination of care (as documented) at patient's floor/unit and/or counseling patient: Coding Level of Care Code 14944 Subseq Hosp Care Lvl 2 Diagnoses Influenza A J10.1 Diabetes type 2, controlled E11.9 Paroxysmal atrial fibrillation I48.0 Dyslipidemia E78.5 Chronic anticoagulation Z79.01 Benign prostatic hyperplasia with urinary obstruction N40.1; N13.8 Nontoxic multinodular goiter E04.2 Time Spent (min) 35
[2022-10-21] MEDS: RIVAROXABAN 20 MG TAB PO SCH (17:55)
[2022-10-22 08:26] LABS: Hematocrit (blood only) 39.9 % (40.1-51.0); Hemoglobin 13.5 g/dl (14.0-18.0); Mean Corpuscular Hemoglobin 32.8 pg (25.0-34.0); Mean Corpuscular Hgb Conc 33.8 g/dL (32.0-36.0); Mean Corpuscular Volume 96.8 fL (80.0-100.0); Mean Platelet Volume 9.8 fL (9.4-12.4); Platelet Count 143 K/uL (130-400); RDW Coefficient of Variation 13.2 % (11.5-14.5); RDW Standard Deviation 47.8 fL (36.4-46.3); Red Blood Count 4.12 M/uL (4.63-6.08); White Blood Count 2.75 K/ul (4.8-10.8)
[2022-10-22] MEDS: PANTOprazole 40 MG TAB PO SCH (08:26)
[2022-10-22] MEDS: METOPROLOL SUCC 25MG EXT REL TAB PO SCH (08:26)
[2022-10-22] MEDS: lisinopril 20 MG TAB PO SCH (08:26)
[2022-10-22] MEDS: MEMANTINE HCL 10 MG TAB PO SCH (08:27)
[2022-10-22] MEDS: ASPIRIN 81 MG ECTAB PO SCH (08:27)
[2022-10-22] MEDS: ASCORBIC ACID 500 MG TAB PO SCH (08:27)
[2022-10-22] MEDS: OSELTAMIVIR PHOSPHATE 75 MG CAP PO SCH (08:27)
[2022-10-22] MEDS: ROSUVASTATIN CALCIUM 20 MG TAB PO SCH (08:27)
[2022-10-22] MEDS: CHOLECALCIFEROL 1,000 UNITS 25 MCG TAB PO SCH (08:27)
[2022-10-22] MEDS: DONEPEZIL HCL 10 MG TAB PO SCH (08:27)
[2022-10-22] MEDS: INSULIN ASPART PER UNIT SC SCH ×2 (08:31→12:36)
[2022-10-22 08:41] LABS: BUN Creatinine Ratio 18.3 (10-20); Calcium 8.9 mg/dl (8.5-10.1); Creatinine Clr Calc Pharmacy 69.6 ml/min; Est GFR (African American) 92.2 ml/min; Est GFR (Non-African American) 79.5 ml/min; Potassium 3.8 mmol/L (3.5-5.1)
[2022-10-22] MEDS: LANTUS PER UNIT CHARGE SQ SCH (08:44)
--- NOTE | 2022-10-22 15:48 | Discharge Summary ---
Date of Service October 22, 2022 Principal Diagnosis Influenza A Discharge Exam The patient is awake, alert and oriented 3, well developed and well nourished, normocephalic and atraumatic, lying in bed and in no acute distress. HEENT--PERRL, EOMI, mucous membranes and oropharynx mildly dry Neck--supple. No JVD. No bruits. Thyroid normal, trachea midline, no adenopathy. Heart--normal S1 and S2. No murmurs, rubs or gallops. Lungs--clear bilaterally, no respiratory distress, no accessory muscle use. Abdomen--normal bowel sounds and soft. Mild epigastric and left sided abdominal pain Extremities--no cyanosis or clubbing. No edema. Dermatologic--normal skin turgor, normal color, no abnormal lymph nodes, no rash. Neurologic--cranial nerves II through XII grossly intact. Rheumatologic--normal range of motion. Psychiatric--normal affect. Discharge Data Allergies Allergy/AdvReac Type Severity Reaction Status Date / Time Sulfa (Sulfonamide Allergy Unknown UNKNOWN BY Verified 10/17/22 18:57 Antibiotics) PATIENT Ordered Studies 10/17/22 13:43 CT head/brain wo con Stat 10/17/22 13:55 CT abd pelvis IV con only Stat CT cervical spine wo con Stat CT lumbar spine w con Stat Hospital Course (1) Influenza A: Positive for Influenza Completed Tamiflu, day 5 of 5. Continue supportive care Patient still has some cough and mild SOB Clinically much improved (2) Diabetes type 2, controlled: ADA diet. Basal insulin therapy. Sliding scale insulin coverage while hospitalized (3) Paroxysmal atrial fibrillation: Controlled with medication. Continue Xarelto (4) Dyslipidemia: Diet control (5) Chronic anticoagulation: Continue Xarelto therapy (6) Benign prostatic hyperplasia with urinary obstruction: Stable with current medication management (7) Nontoxic multinodular goiter: Stable with current medication management Plan Home Total Time Total Time Spent Total Time Spent (In Minutes): 35 Discharge Plan Discharge Items Patient Disposition: Personal [facility] Reason For Visit: METABOLIC ENCEPHALOPATHY SECONDARY TO INFLUENZA A Discharge Diagnosis: Influenza A, generalized weakness, metabolic encephalopathy Activity: Resume your previous activity Non-emergency contact: Primary Care Provider Call non-emergency contact if: you have any medication questions Follow-up/Referrals: Loraine branchWeems [Primary Care Provider] - Diet: Carb Consistent or DM2 and Heart Healthy Addtl Attending Provider Instructions: please make appointment to follow up with your regular PCP Pending Studies at Discharge: No Stand-Alone Forms: [employer], Smoking Cessation Skilled Items Patient informed of condition?: Yes DNR: Yes Discharge Level of Care: Other Communicable Disease: No Discharge Prognosis: Improving Lines: None Urinary Catheter: No Medications and DC Order Prescriptions: Continued donepezil 10 mg tablet 10 mg PO QAM Qty: 90 3RF rosuvastatin 40 mg tablet 40 mg PO QAM Qty: 90 3RF lisinopril 20 mg tablet 20 mg PO DAILY Qty: 90 3RF nitroglycerin 0.4 mg tablet, sublingual 0.4 mg SL DIRECTED PRN (Reason: Chest Pain) Qty: 20 1RF (DME) lancets [OneTouch Delica Lancets] 33 gauge misc See Dose Instructions .ROUTE .MEDSUPPLY Qty: 120 5RF Rx Instructions: Test blood sugars 4 times a day (DME) pen needle, diabetic [BD Ultra-Fine Ros Pen Needle] 32 gauge x 5/32" needle See Rx Instructions .ROUTE .MEDSUPPLY Qty: 400 1RF Rx Instructions: Use to inject insulin 4x per day (DME) OneTouch Verio test strips Strip See Dose Instructions .ROUTE .MEDSUPPLY Qty: 400 3RF Rx Instructions: Test blood sugars 4 times a day: fasting, before lunch, before supper, before bed memantine 10 mg tablet 10 mg PO BID 90 Days Qty: 180 2RF metoprolol succinate 25 mg tablet extended release 24 hr 12.5 mg PO QAM Qty: 90 3RF (DME) OneTouch Verio High Control Solution See Rx Instructions .Route Qty: 1 0RF Rx Instructions: As directed clotrimazole-betamethasone 1-0.05 % cream 1 applic topical .qhs Qty: 45 11RF Rx Instructions: Apply small/pea-sized amount topically before bed ascorbate calcium (vitamin C) 500 mg tablet 500 mg PO QAM vitamin B complex Capsule 1 cap PO QAM cholecalciferol (vitamin D3) 1,000 unit capsule 1,000 units PO QAM aspirin [Adult Low Dose Aspirin] 81 mg tablet,delayed release (DR/EC) 81 mg PO QAM dutasteride 0.5 mg capsule 0.5 mg PO DAILY Qty: 90 3RF Tresiba FlexTouch U-100 100 unit/mL (3 mL) insulin pen 15 unit subcut QAM Hold Instructions: tyring nph insulin aspart U-100 [Novolog Flexpen U-100 Insulin] 100 unit/mL (3 mL) insulin pen 8 unit subcut .COMPLEX Rx Instructions: 8 units subcut 15 min before meals (three times per day); Xarelto 20 mg tablet 20 mg PO QPM Rx Instructions: must administer with evening meal omeprazole 20 mg capsule,delayed release(DR/EC) 20 mg PO DAILYBB Rx Instructions: TAKE 1 CAPSULE BY MOUTH EVERY DAY Discharge Orders: Discharge Order (Routine); Ordered 10/22/22 Ordered By: Prema Dinh Admission Data Admit Date/Time: 10/17/22 18:21 Attending Provider: Prema Dinh Admit Provider: Gennaro Franklin Primary Care Provider: Loraine branchWeems Other Providers: Chencho Bradshaw at [place] ; [facility] Other Interventions: Discharge Summary Assessment (RN) Last Done: 10/22/22 10:57 Coding Level of Care Code D/C DAY MANAGEMENT >30 MINS Diagnoses Influenza A J10.1 Diabetes type 2, controlled E11.9 Paroxysmal atrial fibrillation I48.0 Dyslipidemia E78.5 Chronic anticoagulation Z79.01 Benign prostatic hyperplasia with urinary obstruction N40.1; N13.8 Nontoxic multinodular goiter E04.2 Time Spent (min) 35
== END 2022-10-22 13:14 | disposition home or self-care (01) ==
LOC: ED 13:18 → SUATTDRO 18:21 → INTOOBSV 18:21 → 3N 18:21

== ENCOUNTER 2022-12-24 18:41 | Inpatient (IN) ==
--- NOTE | 2022-12-24 18:56 | Emergency Department Note ---
History of Present Illness General Chief complaint: Weakness Stated complaint: weakness, covid positive Time Seen by Provider: 12/24/22 18:48 History of Present Illness 87-year-old male presents via EMS from the dementia unit reportedly tested positive for COVID yesterday and was sent for evaluation due to weakness today. Reportedly he was generally weak and had 2 episodes of falling. Patient did not hit his head there is no reported trauma. Patient does state that he has a slight cough. He states general malaise and weakness as well. There are no other complaints of nausea vomiting fever shortness of breath abdominal pain leg weakness. Home Medications Medication Instructions Recorded Confirmed Type cholecalciferol (vitamin D3) 25 1,000 units PO QAM 05/16/19 12/24/22 History mcg (1,000 unit) capsule aspirin 81 mg tablet,delayed 81 mg PO QAM 06/20/19 12/24/22 History release (Adult Low Dose Aspirin) ascorbate calcium (vitamin C) 500 500 mg PO QAM 03/28/20 12/24/22 History mg tablet vitamin B complex 1 cap PO QAM 04/05/20 12/24/22 History donepezil 10 mg tablet 10 mg PO QAM #90 tabs 10/26/20 12/24/22 Rx lisinopril 20 mg tablet 20 mg PO DAILY #90 tabs 06/05/21 12/24/22 Rx rosuvastatin 40 mg tablet 40 mg PO QAM #90 tabs 06/05/21 12/24/22 Rx metoprolol succinate 25 mg 12.5 mg PO QAM #90 tabs 06/17/21 12/24/22 Rx tablet,extended release 24 hr rivaroxaban 20 mg tablet (Xarelto) 20 mg PO QPM 06/29/21 12/24/22 History nitroglycerin 0.4 mg sublingual 0.4 mg sublingual DIRECTED PRN 08/29/21 12/24/22 Rx tablet Chest Pain #20 tabs blood glucose control, high #1 ea 11/12/21 12/19/22 Rx (OneTouch Verio High Control solution) lancets 33 gauge (OneTouch Delica #120 ea 12/11/21 12/19/22 Rx Lancets) OneTouch Verio test strips (blood #400 ea 12/13/21 12/19/22 Rx sugar diagnostic) pen needle, diabetic 32 gauge x #400 ea 12/13/21 11/26/22 Rx 5/32" (BD Ultra-Fine Ros Pen Needle) insulin degludec 100 unit/mL (3 23 unit subcut QAM 01/30/22 12/24/22 History mL) subcutaneous pen (Tresiba FlexTouch U-100 insulin) insulin aspart U-100 100 unit/mL See Rx Instructions .Route .COMPLEX 05/21/22 12/24/22 History (3 mL) subcutaneous pen (Novolog FlexPen U-100 Insulin aspart) memantine 10 mg tablet 10 mg PO BID 90 days #180 tabs 07/03/22 12/24/22 Rx omeprazole 20 mg capsule,delayed 20 mg PO DAILY 10/17/22 12/24/22 History release dutasteride 0.5 mg capsule 0.5 mg PO DAILY #90 caps 11/26/22 12/24/22 Rx acetaminophen 325 mg tablet 650 mg PO Q8H PRN Pain 12/24/22 12/24/22 History (Tylenol) lidocaine 4 % topical patch 1 patch topical DAILY PRN Pain 12/24/22 12/24/22 History Allergies Allergy/AdvReac Type Severity Reaction Status Date / Time Sulfa (Sulfonamide Allergy Unknown ON HARMONY Verified 12/24/22 20:56 Antibiotics) MED LIST Past Med/Surg History Medical History Abnormal electrocardiogram Acute hyperglycemia Acute hyponatremia Albuminuria Arteriosclerotic heart disease Benign prostatic hyperplasia 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 CHI (closed head injury) Chronic anticoagulation Chronic prostatitis Chronic rhinitis Closed rib fracture Coronary atherosclerosis of [place] coronary vessel (06/07/12) Dementia Diabetes type 2, controlled 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 Dupuytrens contracture Dysesthesia Dyslipidemia Elevated PSA Enlarged prostate with lower urinary tract symptoms (LUTS) Facial abrasion Fall from slip, trip, or stumble Former smoker Hematospermia Hypertension Laryngopharyngeal reflux Left shoulder strain Leukopenia Microscopic hematuria Mild aortic regurgitation Mild aortic stenosis Mild mitral regurgitation Myocardial infarction (06/07/12) Nephrolithiasis Nontoxic multinodular goiter Other and unspecified hyperlipidemia (06/07/12) Pancytopenia (~2000) Paroxysmal atrial fibrillation PND (post-nasal drip) Rhabdomyolysis Right rib fracture Sepsis (06/07/12) Septicemia due to Gram-negative organism, unspecified (06/07/12) Vitamin D deficiency Weakness Surgical History History of arthroscopy of knee History of cataract surgery History of colonoscopy History of cystoscopy History of tonsillectomy S/P drug eluting coronary stent placement Status post Mohs surgery Family History Brother Coronary heart disease Father Angina pectoris Carcinoma of pancreas Myocardial infarction Mother Congestive heart failure Breast cancer Unknown Diabetes Heart disease Hypertension Daughter Breast cancer Denies family history of Ovarian cancer Prostate cancer Colorectal cancer Social History Smoking Status: Former smoker Tobacco Type: Cigarettes Second Hand Exposure: No; Hx Alcohol Use: No Hx Substance Use: No Preferred Language: Citizen Of [place] Communication Ability: Effective Visual Impairment: Limited Hearing Ability: Normal Patient Navigator Required: No Beliefs That Will Affect Care: None marital status: / Current Living Situation: Correction Current Living Situation Comment: [facility] current occupational status: retired How many Children do You have: 3 Feels Safe at Home: Yes Childhood Exposure to Second-Hand Smoke: No caffeine: Yes Dental Care, Regularly: Yes Physical Activity Frequency: 1-2 Times per Week Seatbelt Use: always Sunscreen Use: Yes Assistive Devices: Walker Review of Systems A total of 10 systems reviewed and were otherwise negative Constitutional: no fever Respiratory: + cough; no dyspnea Cardiovascular: no chest pain Neurologic: + generalized weakness Physical Exam Vital Signs Vital Signs - 24 hr 12/24/22 18:59 12/24/22 18:59 12/24/22 18:59 Temperature 37.2 C Temperature Source Oral Pulse Rate 66 Pulse Rate [Apical] 66 Pulse Rhythm Regular Pulse Rhythm [Apical] Regular Pulse Strength Normal Pulse Strength [Apical] Normal Respiratory Rate 20 20 Respiratory Effort / Characteristics Non-Labored Non-Labored Respiratory Depth Normal Normal Respiratory Pattern Regular Regular Blood Pressure 156/77 H Blood Pressure [Right Arm] 156/77 H Blood Pressure Mean 103 Blood Pressure Mean [Right Arm] 103 Blood Pressure Position Lying Blood Pressure Position [Right Arm] Lying Pulse Oximetry 95 95 Oxygen Delivery Method Room Air Room Air Room Air Sepsis Recent Fever Within 48 Hours No Sepsis New/Unexplained Change in Mental Status No Sepsis Action Taken by Nursing No Action Required 12/24/22 18:59 Temperature Temperature Source Pulse Rate Pulse Rate [Apical] Pulse Rhythm Pulse Rhythm [Apical] Pulse Strength Pulse Strength [Apical] Respiratory Rate Respiratory Effort / Characteristics Respiratory Depth Respiratory Pattern Blood Pressure Blood Pressure [Right Arm] Blood Pressure Mean Blood Pressure Mean [Right Arm] Blood Pressure Position Blood Pressure Position [Right Arm] Pulse Oximetry 95 Oxygen Delivery Method Room Air Sepsis Recent Fever Within 48 Hours Sepsis New/Unexplained Change in Mental Status Sepsis Action Taken by Nursing GENERAL: Patient is awake alert in no acute distress patient is resting comfortably and showing no signs of anxiety EYES: The conjunctivae are clear. The pupils are round and reactive. EARS, NOSE, MOUTH AND THROAT: The nose is without any evidence of any deformity. Mucous membranes are moist. Tongue is midline. NECK: The neck is nontender and supple. RESPIRATORY: Normal respiratory effort is noted there is no evidence of wheezing rhonchi or rales CARDIOVASCULAR: Regular rate and rhythm noted there no murmurs rubs or gallops normal S1 normal S2. GASTROINTESTINAL: The abdomen is soft. Abdomen is nontender. PELVIS: The Pelvis is stable. No tenderness to palpation is noted. BACK: No midline tenderness or or step-off noted range of motion in flexion e xtension as well as rotation no signs of muscle spasm noted MUSCULOSKELETAL/EXTREMITIES: There is no evidence of gross deformity full range of motion is noted in the hips and shoulders. Bilateral lower extremity edema SKIN: There is no obvious evidence of any rash. There are no petechiae, pallor o r cyanosis noted. NEUROLOGIC: Patient is awake alert and oriented x 2, strength is equal bilaterally Psych normal affect Course Reevaluation(s) Reevaluation #1: Patient is resting in no distress, was given aspirin, no current chest pain no shortness of breath nonhypoxic Time: 21:02 Consultations Consultation #1: [facility] due to COVID elevated troponin. Time: 21:02 Administered Medications Discontinued Medications Aspirin (Aspirin Chew 324 Mg) 324 mg PO NOW STA Stop: 12/24/22 20:03 Last Admin: 12/24/22 20:37 Dose: 324 mg Documented By: IDON Medical Decision Making Medical Records Attestation: I reviewed the patient's medical records. Home Medications Current Medication List: was personally reviewed by me Laboratory Data Attestation: I reviewed the patient's lab results. Patient has an elevated troponin and is COVID positive as interpreted by me 12/24/22 19:12 12/24/22 19:12 Lab Results 12/24/22 12/24/22 12/24/22 Range/Units 19:12 19:12 19:12 WBC 4.53 L (4.8-10.8) K/ul RBC 3.95 L (4.70-6.10) M/uL Hgb 12.9 L (14.0-18.0) g/dl Hct 37.4 L (42.0-52.0) % MCV 94.7 (80.0-100.0) fL MCH 32.7 (25.0-34.0) pg MCHC 34.5 (32.0-36.0) g/dL RDW Std Deviation 49.1 H (36.4-46.3) fL RDW Coeff of Anaid 14.0 (11.5-14.5) % Plt Count 141 (130-400) K/uL MPV 9.4 (9.4-12.4) fL Immature Gran % (Auto) 0.2 % Neut % (Auto) 73.1 % Lymph % (Auto) 11.3 % [place] % (Auto) 15.2 % Eos % (Auto) 0.0 % Baso % (Auto) 0.2 % Neut # (Auto) 3.31 (1.40-6.50) K/uL Lymph # (Auto) 0.51 L (1.2-3.4) K/uL [place] # (Auto) 0.69 H (0.11-0.59) K/uL Eos # (Auto) 0.00 (0-0.50) K/uL Baso # (Auto) 0.01 (0-0.2) K/uL Immature Gran # (Auto) 0.01 (0.01-0.20) K/uL Sodium 140 (136-145) mmol/L Potassium 3.8 (3.5-5.1) mmol/L Chloride 103 (98-107) mmol/L Carbon Dioxide 30 (21-32) mmol/L Anion Gap 7 (3-11) BUN 26 H (6-23) mg/dl Creatinine 1.22 (0.6-1.4) mg/dl Est Cr Clr Drug Dosing 48.2 ml/min Est GFR ( Amer) 61.4 ml/min Est GFR (Non-Af Amer) 53.0 ml/min BUN/Creatinine Ratio 21.3 H (10-20) Glucose 93 (70-99(Fasting)) mg/dl Lactate (0.4-2.0) mmol/L Calcium 9.5 (8.5-10.1) mg/dl Magnesium 1.9 (1.7-2.4) mg/dl Total Bilirubin 1.1 H (0.2-1.0) mg/dl Direct Bilirubin 0.2 (0-0.2) mg/dl AST 32 (13-39) U/L ALT 21 (7-52) U/L Alkaline Phosphatase 68 (34-104) U/L Troponin I High Sens 260.3 H* (0-20) pg/ml Total Protein 7.3 (6.0-8.3) gm/dl Albumin 4.5 (3.4-5.0) gm/dl Procalcitonin 0.08 (0-0.5) ng/ml SARS-CoV-2, RNA, NAAT (NEGATIVE) 12/24/22 12/24/22 Range/Units 19:14 19:16 WBC (4.8-10.8) K/ul RBC (4.70-6.10) M/uL Hgb (14.0-18.0) g/dl Hct (42.0-52.0) % MCV (80.0-100.0) fL MCH (25.0-34.0) pg MCHC (32.0-36.0) g/dL RDW Std Deviation (36.4-46.3) fL RDW Coeff of Anaid (11.5-14.5) % Plt Count (130-400) K/uL MPV (9.4-12.4) fL Immature Gran % (Auto) % Neut % (Auto) % Lymph % (Auto) % [place] % (Auto) % Eos % (Auto) % Baso % (Auto) % Neut # (Auto) (1.40-6.50) K/uL Lymph # (Auto) (1.2-3.4) K/uL [place] # (Auto) (0.11-0.59) K/uL Eos # (Auto) (0-0.50) K/uL Baso # (Auto) (0-0.2) K/uL Immature Gran # (Auto) (0.01-0.20) K/uL Sodium (136-145) mmol/L Potassium (3.5-5.1) mmol/L Chloride (98-107) mmol/L Carbon Dioxide (21-32) mmol/L Anion Gap (3-11) BUN (6-23) mg/dl Creatinine (0.6-1.4) mg/dl Est Cr Clr Drug Dosing ml/min Est GFR ( Amer) ml/min Est GFR (Non-Af Amer) ml/min BUN/Creatinine Ratio (10-20) Glucose (70-99(Fasting)) mg/dl Lactate 0.9 (0.4-2.0) mmol/L Calcium (8.5-10.1) mg/dl Magnesium (1.7-2.4) mg/dl Total Bilirubin (0.2-1.0) mg/dl Direct Bilirubin (0-0.2) mg/dl AST (13-39) U/L ALT (7-52) U/L Alkaline Phosphatase (34-104) U/L Troponin I High Sens (0-20) pg/ml Total Protein (6.0-8.3) gm/dl Albumin (3.4-5.0) gm/dl Procalcitonin (0-0.5) ng/ml SARS-CoV-2, RNA, NAAT POSITIVE A* (NEGATIVE) Imaging Data Attestation: I personally reviewed and interpreted this imaging study as follows: My Impression: Chest x-ray interpreted by me negative for infiltrate age indeterminant left sided rib fractures Radiologist's Impression: Chest X-Ray 12/24/22 18:48 SINGLE VIEW CHEST CLINICAL HISTORY: Sepsis FINDINGS: An AP, portable, upright chest radiograph is compared to study dated 10/17/2022 and correlated with chest CT dated 06/29/2021. The heart is enlarged. The pulmonary vasculature is noncongested. Chronic interstitial thickening is similar to previous. There is bibasilar scarring/atelectasis. The lungs and pleural spaces are otherwise clear. No pneumothorax is seen. The skeletal structures are osteopenic. There are healed left-sided rib fractures. IMPRESSION: Cardiomegaly with no acute cardiopulmonary abnormality. ACT 112: Negative or not required by law. Electronically signed by: Александр Rowe M.D. 12/24/2022 7:36 PM ECG Data Attestation: I personally reviewed and interpreted this ECG as follows: Additional Comments: EKG interpreted by me sinus rhythm rate of 68 first-degree AV block left bundle branch block left axis deviation no obvious ST segment elevation or depression MDM Narrative Medical decision making differential diagnosis includes COVID, sepsis, pneumonia, metabolic derangement, dehydration, deconditioning Plan is to check labs, sepsis protocol External medical records were reviewed by me [facility] Nursing notes were reviewed by me Patient had an elevated troponin and was given aspirin Patient is at high risk for cardiorespiratory event Patient will be admitted and it was agreed upon by the [facility] hospitalist Impression & Plan Elevated troponin, Weakness, COVID-19 Discharge Plan Visit Data Chief Complaint: Weakness Stated Complaint: weakness, covid positive ED Provider: Carlos Ramirez Discharge Problem: Elevated troponin, Weakness, COVID-19 Patient Disposition: Admitted As Inpatient Forms Stand Alone Forms: My [facility] Prescriptions Prescriptions: No Action donepezil 10 mg tablet 10 mg PO QAM Qty: 90 3RF rosuvastatin 40 mg tablet 40 mg PO QAM Qty: 90 3RF lisinopril 20 mg tablet 20 mg PO DAILY Qty: 90 3RF nitroglycerin 0.4 mg tablet, sublingual 0.4 mg SL DIRECTED PRN (Reason: Chest Pain) Qty: 20 1RF (DME) lancets [OneTouch Delica Lancets] 33 gauge misc See Dose Instructions .ROUTE .MEDSUPPLY Qty: 120 5RF Rx Instructions: Test blood sugars 4 times a day (DME) pen needle, diabetic [BD Ultra-Fine Ros Pen Needle] 32 gauge x 5/32" needle See Rx Instructions .ROUTE .MEDSUPPLY Qty: 400 1RF Rx Instructions: Use to inject insulin 4x per day (DME) OneTouch Verio test strips Strip See Dose Instructions .ROUTE .MEDSUPPLY Qty: 400 3RF Rx Instructions: Test blood sugars 4 times a day: fasting, before lunch, before supper, before bed memantine 10 mg tablet 10 mg PO BID 90 Days Qty: 180 2RF molnupiravir 200 mg capsule 800 mg PO Q12H 5 Days Qty: 40 0RF metoprolol succinate 25 mg tablet extended release 24 hr 12.5 mg PO QAM Qty: 90 3RF clotrimazole-betamethasone 1-0.05 % cream 1 applic topical .qhs PRN Rx Instructions: Apply small/pea-sized amount topically before bed (DME) OneTouch Verio High Control Solution See Rx Instructions .Route Qty: 1 0RF Rx Instructions: As directed ascorbate calcium (vitamin C) 500 mg tablet 500 mg PO QAM vitamin B complex Capsule 1 cap PO QAM dutasteride 0.5 mg capsule 0.5 mg PO DAILY Qty: 90 3RF cholecalciferol (vitamin D3) 1,000 unit capsule 1,000 units PO QAM aspirin [Adult Low Dose Aspirin] 81 mg tablet,delayed release (DR/EC) 81 mg PO QAM Tresiba FlexTouch U-100 100 unit/mL (3 mL) insulin pen 15 unit subcut QAM Hold Instructions: tyring nph insulin aspart U-100 [Novolog FlexPen U-100 Insulin] 100 unit/mL (3 mL) insulin pen 8 unit subcut .COMPLEX Rx Instructions: 8 units subcut 15 min before meals (three times per day); Xarelto 20 mg tablet 20 mg PO QPM Rx Instructions: must administer with evening meal omeprazole 20 mg capsule,delayed release(DR/EC) 20 mg PO DAILYBB Rx Instructions: TAKE 1 CAPSULE BY MOUTH EVERY DAY Referrals Referrals: Loraine branchVon Ormy [Primary Care Provider] -
--- NOTE | 2022-12-24 19:38 | XRay Report ---
SINGLE VIEW CHEST CLINICAL HISTORY: Sepsis FINDINGS: An AP, portable, upright chest radiograph is compared to study dated 10/17/2022 and correlat ed with chest CT dated 06/29/2021. The heart is enlarged. The pulmonary vasculature is noncongested. C hronic interstitial thickening is similar to previous. There is bibasilar scarring/atelectasis. The l ungs and pleural spaces are otherwise clear. No pneumothorax is seen. The skeletal structures are ost eopenic. There are healed left-sided rib fractures. IMPRESSION: Cardiomegaly with no acute cardiopulmonary abnormality. ACT 112: Negative or not required by law. Electronically signed by: Александр Rowe M.D. 12/24/2022 7:36 PM
[2022-12-24 19:52] LABS: Albumin Level 4.5 gm/dl (3.4-5.0); BUN Creatinine Ratio 21.3 (10-20); Bilirubin Direct 0.2 mg/dl (0-0.2); Bilirubin,Total 1.1 mg/dl (0.2-1.0); Calcium 9.5 mg/dl (8.5-10.1); Creatinine Clr Calc Pharmacy 48.2 ml/min; Est GFR (African American) 61.4 ml/min; Magnesium 1.9 mg/dl (1.7-2.4); Potassium 3.8 mmol/L (3.5-5.1); Total Protein 7.3 gm/dl (6.0-8.3)
[2022-12-24] MEDS ORDERED: ASPIRIN CHEW 324 MG PO STA (20:02)
[2022-12-24 20:03] LABS: Basophils # (auto) 0.01 K/uL (0-0.2); Basophils % (auto) 0.2 %; Hematocrit (blood only) 37.4 % (42.0-52.0); Hemoglobin 12.9 g/dl (14.0-18.0); Immature Granulocytes # (auto) 0.01 K/uL (0.01-0.20); Immature Granulocytes % (auto) 0.2 %; Lymphocytes # (auto) 0.51 K/uL (1.2-3.4); Lymphocytes % (auto) 11.3 %; Mean Corpuscular Hemoglobin 32.7 pg (25.0-34.0); Mean Corpuscular Hgb Conc 34.5 g/dL (32.0-36.0); Mean Corpuscular Volume 94.7 fL (80.0-100.0); Mean Platelet Volume 9.4 fL (9.4-12.4); Monocytes # (auto) 0.69 K/uL (0.11-0.59); Monocytes % (auto) 15.2 %; Neutrophils # (auto) 3.31 K/uL (1.40-6.50); Neutrophils % (auto) 73.1 %; Platelet Count 141 K/uL (130-400); RDW Standard Deviation 49.1 fL (36.4-46.3); Red Blood Count 3.95 M/uL (4.70-6.10); Troponin I High Sensitivity 260.3 pg/ml (0-20); White Blood Count 4.53 K/ul (4.8-10.8)
--- NOTE | 2022-12-24 21:34 | History & Physical Report ---
Date of Service December 24, 2022 Assessment & Plan (1) COVID-19: Plan: 87yo male presenting from his intermediate with Covid-19 infection, generalized weakness, ambulatory dysfunction and malaise. Patient is doing well from a respiratory standpoint. RR of 18 saturating 96% on room air. No indication for steroid use. No need for supplemental O2 at this time. He reports he is fully vaccinated and does not recall having Covid in the past. -Maintain isolation precautions -Monitor respiratory status -PT/OT evaluation -CM evaluation to assist with return to NH (2) Elevated troponin: Plan: Elevated troponin at 260 --> 230. Patient with chronic LBBB. No chest pain -Telemetry monitoring -Trend troponin to peak -Continue ASA and Crestor (3) Dementia: Plan: Chronic. Patient answers questions appropriately and follows commands -Continue Namenda and Aricept -Frequent orientation -Avoidance of potentially delirium-inducing agents (4) Diabetes type 2, controlled: Plan: Fairly well controlled. Last [id number]=5.7 on 12/12/22. Patient is on Trulicity an d sliding scale at home -Continue Glargine 23u qAM -ISS -Goal blood sugar 110 - 140 (5) Hypertension: Plan: Chronic. Blood pressure elevated at present - 171/70 -Continue Metoprolol -Continue Lisinopril -Monitor (6) Paroxysmal atrial fibrillation: Plan: Rate controlled. Anticoagulated on Xarelto -Continue Metoprolol -Continue Xarelto (7) Dyslipidemia: Plan: Chronic -Continue Rosuvastatin 40mg po daily F/E/N - LR at 100mL/hr x 1 liter, monitor electrolytes, AHA/CC diet as tolerated Ppx - On Xarelto Code - Conditional Dispo - Admit to medical with telemetry History of Present Illness Chief Complaint: weakness Primary Care Provider: [facility] Terry Quach is an 87yo male presenting from [facility] dementia unit with Covid-19 infection. Patient reports he has generalized weakness, dry cough and difficulty with ambulation ongoing for the last several weeks. By report he did fall x 2 - no LOC or head trauma, no further injury. He denies fever, chills, chest pain, SOB, abdominal pain, nausea or vomiting. In the ER he is afebrile, HD stable, NAD Adequate oxygenation on room air Labs as below, found to have elevated troponin of 260.3. EKG with chronic LBBB - unchanged. Patient denies chest pain. ER Course: ASA 324mg Allergies Allergy/AdvReac Type Severity Reaction Status Date / Time Sulfa (Sulfonamide Allergy Unknown ON HARMONY Verified 12/24/22 20:56 Antibiotics) MED LIST Home Medications Medication Instructions Recorded Confirmed Type cholecalciferol (vitamin D3) 25 1,000 units PO QAM 05/16/19 12/24/22 History mcg (1,000 unit) capsule aspirin 81 mg tablet,delayed 81 mg PO QAM 06/20/19 12/24/22 History release (Adult Low Dose Aspirin) ascorbate calcium (vitamin C) 500 500 mg PO QAM 03/28/20 12/24/22 History mg tablet vitamin B complex 1 cap PO QAM 04/05/20 12/24/22 History donepezil 10 mg tablet 10 mg PO QAM #90 tabs 10/26/20 12/24/22 Rx lisinopril 20 mg tablet 20 mg PO DAILY #90 tabs 06/05/21 12/24/22 Rx rosuvastatin 40 mg tablet 40 mg PO QAM #90 tabs 06/05/21 12/24/22 Rx metoprolol succinate 25 mg 12.5 mg PO QAM #90 tabs 06/17/21 12/24/22 Rx tablet,extended release 24 hr rivaroxaban 20 mg tablet (Xarelto) 20 mg PO QPM 06/29/21 12/24/22 History nitroglycerin 0.4 mg sublingual 0.4 mg sublingual DIRECTED PRN 08/29/21 12/24/22 Rx tablet Chest Pain #20 tabs blood glucose control, high #1 ea 11/12/21 12/19/22 Rx (OneTouch Verio High Control solution) lancets 33 gauge (OneTouch Delica #120 ea 12/11/21 12/19/22 Rx Lancets) OneTouch Verio test strips (blood #400 ea 12/13/21 12/19/22 Rx sugar diagnostic) pen needle, diabetic 32 gauge x #400 ea 12/13/21 11/26/22 Rx 5/32" (BD Ultra-Fine Ros Pen Needle) insulin degludec 100 unit/mL (3 23 unit subcut QAM 01/30/22 12/24/22 History mL) subcutaneous pen (Tresiba FlexTouch U-100 insulin) insulin aspart U-100 100 unit/mL See Rx Instructions .Route .COMPLEX 05/21/22 12/24/22 History (3 mL) subcutaneous pen (Novolog FlexPen U-100 Insulin aspart) memantine 10 mg tablet 10 mg PO BID 90 days #180 tabs 07/03/22 12/24/22 Rx omeprazole 20 mg capsule,delayed 20 mg PO DAILY 10/17/22 12/24/22 History release dutasteride 0.5 mg capsule 0.5 mg PO DAILY #90 caps 11/26/22 12/24/22 Rx acetaminophen 325 mg tablet 650 mg PO Q8H PRN Pain 12/24/22 12/24/22 History (Tylenol) lidocaine 4 % topical patch 1 patch topical DAILY PRN Pain 12/24/22 12/24/22 History Past Med/Surg History Medical History (Updated 12/25/22 @ 01:48 by Marce Stringer DO) Abnormal electrocardiogram Acute hyperglycemia Acute hyponatremia Albuminuria Arteriosclerotic heart disease Benign prostatic hyperplasia 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 CHI (closed head injury) Chronic anticoagulation Chronic prostatitis Chronic rhinitis Closed rib fracture Coronary atherosclerosis of ruby coronary vessel (06/07/12) Dementia Diabetes type 2, controlled 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 Dupuytrens contracture Dysesthesia Dyslipidemia Elevated PSA Enlarged prostate with lower urinary tract symptoms (LUTS) Facial abrasion Fall from slip, trip, or stumble Former smoker Hematospermia Hypertension Laryngopharyngeal reflux Left shoulder strain Leukopenia Microscopic hematuria Mild aortic regurgitation Mild aortic stenosis Mild mitral regurgitation Myocardial infarction (06/07/12) Nephrolithiasis Nontoxic multinodular goiter Other and unspecified hyperlipidemia (06/07/12) Pancytopenia (~2000) Paroxysmal atrial fibrillation PND (post-nasal drip) Rhabdomyolysis Right rib fracture Sepsis (06/07/12) Septicemia due to Gram-negative organism, unspecified (06/07/12) Vitamin D deficiency Weakness Surgical History History of arthroscopy of knee History of cataract surgery History of colonoscopy History of cystoscopy History of tonsillectomy S/P drug eluting coronary stent placement Status post Mohs surgery Family History Brother Coronary heart disease Father Angina pectoris Carcinoma of pancreas Myocardial infarction Mother Congestive heart failure Breast cancer Unknown Diabetes Heart disease Hypertension Daughter Breast cancer Denies family history of Ovarian cancer Prostate cancer Colorectal cancer Social History Smoking Status: Former smoker Tobacco Type: Cigarettes Second Hand Exposure: No; Hx Alcohol Use: No Hx Substance Use: No Preferred Language: Czech Communication Ability: Effective Visual Impairment: Limited Hearing Ability: Normal Compounding And Finishing Supervisor Required: No Beliefs That Will Affect Care: None marital status: / Current Living Situation: Alf Current Living Situation Comment: [employer] current occupational status: retired How many Children do You have: 3 Feels Safe at Home: Yes Childhood Exposure to Second-Hand Smoke: No caffeine: Yes Dental Care, Regularly: Yes Physical Activity Frequency: 1-2 Times per Week Seatbelt Use: always Sunscreen Use: Yes Assistive Devices: Walker Review of Systems 2 Review of Systems: All systems reviewed & are unremarkable except as noted in HPI & below Physical Exam Physical Exam: General: patient resting comfortably, NAD, non-toxic in appearance, AA&O x 4 Skin: warm, dry, intact, no rashes or lesions HEENT: NC/AT, PERRL, EOMI, anicteric sclera, conjunctiva without injection, external ear normal to inspection and nontender, nares patent, moist mucus membranes, dentition intact, no oropharyngeal lesions, neck supple, trachea midline, no LAD, no thyromegaly, no JVD Heart: +S1/S2, regular, no m/r/g Lungs: equal air entry bilaterally, no rales/rhonchi/wheezes Abd: +BS, soft, NT/ND, no masses/organomegaly/ascites Ext: warm, 2+ pulses in UE/LE bilaterally, no clubbing/cyanosis or edema Neuro: nonfocal, patient AA&O x 4, speech intact, no facial droop, moving all extremities on command with equal strength 5/5 Results & Data Results & Data ([facility]) Vital Signs (Past 12 Hours) Vital Signs Temp Pulse Pulse Resp BP BP Pulse Ox 12/24/22 18:59 95 12/24/22 18:59 66 20 156/77 H 95 12/24/22 18:59 12/24/22 18:59 37.2 C 66 20 156/77 H 95 O2 Del Method 12/24/22 18:59 Room Air 12/24/22 18:59 Room Air 12/24/22 18:59 Room Air 12/24/22 18:59 Room Air Laboratory Results Laboratory Results WBC 4.53 K/ul (4.8-10.8) L 12/24/22 19:12 RBC 3.95 M/uL (4.70-6.10) L 12/24/22 19:12 Hgb 12.9 g/dl (14.0-18.0) L 12/24/22 19:12 Hct 37.4 % (42.0-52.0) L 12/24/22 19:12 MCV 94.7 fL (80.0-100.0) 12/24/22 19:12 MCH 32.7 pg (25.0-34.0) 12/24/22 19:12 MCHC 34.5 g/dL (32.0-36.0) 12/24/22 19:12 RDW Std Deviation 49.1 fL (36.4-46.3) H 12/24/22 19:12 RDW Coeff of Anaid 14.0 % (11.5-14.5) 12/24/22 19:12 Plt Count 141 K/uL (130-400) 12/24/22 19:12 MPV 9.4 fL (9.4-12.4) 12/24/22 19:12 Immature Gran % (Auto) 0.2 % 12/24/22 19:12 Neut % (Auto) 73.1 % 12/24/22 19:12 Lymph % (Auto) 11.3 % 12/24/22 19:12 Mclean % (Auto) 15.2 % 12/24/22 19:12 Eos % (Auto) 0.0 % 12/24/22 19:12 Baso % (Auto) 0.2 % 12/24/22 19:12 Neut # (Auto) 3.31 K/uL (1.40-6.50) 12/24/22 19:12 Lymph # (Auto) 0.51 K/uL (1.2-3.4) L 12/24/22 19:12 Mclean # (Auto) 0.69 K/uL (0.11-0.59) H 12/24/22 19:12 Eos # (Auto) 0.00 K/uL (0-0.50) 12/24/22 19:12 Baso # (Auto) 0.01 K/uL (0-0.2) 12/24/22 19:12 Immature Gran # (Auto) 0.01 K/uL (0.01-0.20) 12/24/22 19:12 Sodium 140 mmol/L (136-145) 12/24/22 19:12 Potassium 3.8 mmol/L (3.5-5.1) 12/24/22 19:12 Chloride 103 mmol/L (98-107) 12/24/22 19:12 Carbon Dioxide 30 mmol/L (21-32) 12/24/22 19:12 Anion Gap 7 (3-11) 12/24/22 19:12 BUN 26 mg/dl (6-23) H 12/24/22 19:12 Creatinine 1.22 mg/dl (0.6-1.4) 12/24/22 19:12 Est Cr Clr Drug Dosing 48.2 ml/min 12/24/22 19:12 Est GFR ( Amer) 61.4 ml/min 12/24/22 19:12 Est GFR (Non-Af Amer) 53.0 ml/min 12/24/22 19:12 BUN/Creatinine Ratio 21.3 (10-20) H 12/24/22 19:12 Glucose 93 mg/dl (70-99(Fasting)) 12/24/22 19:12 Lactate 0.9 mmol/L (0.4-2.0) 12/24/22 19:14 Calcium 9.5 mg/dl (8.5-10.1) 12/24/22 19:12 Magnesium 1.9 mg/dl (1.7-2.4) 12/24/22 19:12 Total Bilirubin 1.1 mg/dl (0.2-1.0) H 12/24/22 19:12 Direct Bilirubin 0.2 mg/dl (0-0.2) 12/24/22 19:12 AST 32 U/L (13-39) 12/24/22 19:12 ALT 21 U/L (7-52) 12/24/22 19:12 Alkaline Phosphatase 68 U/L (34-104) 12/24/22 19:12 Total Creatine Kinase 807 U/L (30-223) H 12/24/22 19:12 Troponin I High Sens 231.5 pg/ml (0-20) H* 12/25/22 00:06 Total Protein 7.3 gm/dl (6.0-8.3) 12/24/22 19:12 Albumin 4.5 gm/dl (3.4-5.0) 12/24/22 19:12 Procalcitonin 0.08 ng/ml (0-0.5) 12/24/22 19:12 SARS-CoV-2, RNA, NAAT POSITIVE (NEGATIVE) A* 12/24/22 19:16 Impressions Chest X-Ray 12/24/22 18:48 SINGLE VIEW CHEST CLINICAL HISTORY: Sepsis FINDINGS: An AP, portable, upright chest radiograph is compared to study dated 10/17/2022 and correlated with chest CT dated 06/29/2021. The heart is enlarged. The pulmonary vasculature is noncongested. Chronic interstitial thickening is similar to previous. There is bibasilar scarring/atelectasis. The lungs and pleural spaces are otherwise clear. No pneumothorax is seen. The skeletal structures are osteopenic. There are healed left-sided rib fractures. IMPRESSION: Cardiomegaly with no acute cardiopulmonary abnormality. ACT 112: Negative or not required by law. Electronically signed by: Александр Rowe M.D. 12/24/2022 7:36 PM Code Status & VTE Plan VTE Prophylaxis Plan VTE Prophylaxis will be ordered: Yes PG Care Time/CCT Total # of Minutes Spent Total Time Spent with Patient: Total time spent is greater than 50% in coordination of care (as documented) at patient's floor/unit and/or counseling patient: Coding Level of Care Code 47130 INT INP/OBS CARE 3/75MIN Diagnoses COVID-19 U07.1 Elevated troponin R77.8 Dementia F03.90 Diabetes type 2, controlled E11.9 Hypertension I10 Paroxysmal atrial fibrillation I48.0 Dyslipidemia E78.5
[2022-12-24] MEDS ORDERED: ACETAMINOPHEN 325 MG TAB PO PRN (23:50)
[2022-12-24] MEDS ORDERED: CARBOHYDRATES FOR HYPOGLYCEMIA PO PRN (23:50)
[2022-12-24] MEDS ORDERED: GLUCOSE 40% GEL 15 GM TUBE PO PRN (23:50)
[2022-12-24] MEDS ORDERED: GLUCAGON FOR INJ 1 MG VIAL SQ PRN (23:50)
[2022-12-24] MEDS ORDERED: DEXTROSE 50% 50 ML SYRINGE IV PRN (23:50)
[2022-12-24] MEDS ORDERED: POLYETHYLENE (MIRALAX) 17 GM PACK PO PRN (23:50)
[2022-12-24] MEDS ORDERED: DOCUSATE SODIUM 100 MG CAP PO PRN (23:50)
[2022-12-24] MEDS ORDERED: GLUCOSE 10 TAB/TUBE PO PRN (23:50)
[2022-12-25] MEDS ORDERED: LACTATED RINGER'S 1,000 ML IV SCH (01:00)
[2022-12-25] MEDS ORDERED: LIDOCAINE 5% 1 PATCH TD PRN (01:08)
[2022-12-25] MEDS: AVODART~ORDER AWAITING ACTION SCH ×4 (02:46→21:55)
[2022-12-25] MEDS ORDERED: hydrALAZINE HCL 20 MG/ML VIAL IV STA (06:18)
[2022-12-25 06:39] LABS: Hematocrit (blood only) 37.3 % (42.0-52.0); Mean Corpuscular Hgb Conc 34.9 g/dL (32.0-36.0); Mean Corpuscular Volume 94.7 fL (80.0-100.0); Mean Platelet Volume 9.8 fL (9.4-12.4); Platelet Count 118 K/uL (130-400); RDW Standard Deviation 48.7 fL (36.4-46.3); Red Blood Count 3.94 M/uL (4.70-6.10); White Blood Count 3.51 K/ul (4.8-10.8)
[2022-12-25 08:03] LABS: Albumin Level 3.8 gm/dl (3.4-5.0); BUN Creatinine Ratio 22.4 (10-20); Bilirubin Direct 0.2 mg/dl (0-0.2); Bilirubin,Total 1.1 mg/dl (0.2-1.0); Calcium 9.2 mg/dl (8.5-10.1); Creatinine Clr Calc Pharmacy 58.3 ml/min; Potassium 3.8 mmol/L (3.5-5.1); Total Protein 6.6 gm/dl (6.0-8.3)
[2022-12-25] MEDS: MEMANTINE HCL 10 MG TAB PO SCH ×2 (09:04→21:45)
[2022-12-25] MEDS: METOPROLOL SUCC 25MG EXT REL TAB PO SCH (09:04)
[2022-12-25] MEDS: ROSUVASTATIN CALCIUM 20 MG TAB PO SCH (09:04)
[2022-12-25] MEDS: ASPIRIN 81 MG ECTAB PO SCH (09:04)
[2022-12-25] MEDS: lisinopril 20 MG TAB PO SCH (09:04)
[2022-12-25] MEDS: DONEPEZIL HCL 10 MG TAB PO SCH (09:04)
[2022-12-25] MEDS: INSULIN ASPART PER UNIT SC SCH ×4 (09:06→21:55)
[2022-12-25] MEDS: LANTUS PER UNIT CHARGE SQ SCH (09:15)
[2022-12-25] MEDS ORDERED: REMDESIVIR 200 MG in SODIUM CHLORIDE 0.9% 210 ML IV STA (09:17)
[2022-12-25 10:20] LABS: Troponin I High Sensitivity 115.6 pg/ml (0-20)
--- NOTE | 2022-12-25 12:42 | Electrocardiogram Report ---
Test Reason : Blood Pressure : / mmHG Vent. Rate : 065 BPM Atrial Rate : 065 BPM P-R Int : 280 ms QRS Dur : 152 ms QT Int : 454 ms P-R-T Axes : 017 -48 082 degrees QTc Int : 472 ms Sinus rhythm with 1st degree A-V block Left axis deviation Left bundle branch block Abnormal ECG When compared with ECG of 17-OCT-2022 14:03, No significant change was found Confirmed by Arsalan Patel ([id number]) on 12/25/2022 12:41:54 PM Referred By: [facility] Confirmed By:Arsalan Patel
--- NOTE | 2022-12-25 19:39 | Hospitalist Progress Note ---
Date of Service December 25, 2022 Assessment & Plan (1) COVID-19: Plan: 87yo male presenting from his personal senior living with Covid-19 infection, generalized weakness, ambulatory dysfunction and malaise. Patient is doing well from a respiratory standpoint. He is not hypoxic and there is no indication for steroid use. He reports he is fully vaccinated and does not recall having Covid in the past. He has a good appetite, no GI symptoms, no headache or fevers. -Start Remdesivir -Maintain isolation precautions -Monitor respiratory status -PT/OT evaluation -Supportive care -PT/OT evaluations recommend rehab-await determination from personal-senior living to see if they can take him back versus need for rehab (2) Elevated troponin: Plan: Elevated troponin at 260 --> 230--> 13. Patient with chronic LBBB on ECG. No chest pain Likely myocardial demand ischemia secondary to COVID-19 and possibly from mild rhabdomyolysis -Continue ASA and Crestor (3) Dementia: Plan: Chronic, Mild. Patient answers questions appropriately and follows commands -Continue Namenda and Aricept -Frequent orientation -Avoidance of potentially delirium-inducing agents (4) Rhabdomyolysis due to COVID-19: Plan: Rhabdomyolysis possibly associated with COVID CK in the 800s on admission, received IV fluids and now decreased No further treatment needed (5) Diabetes type 2, controlled: Plan: Fairly well controlled. Last [id number]=5.7 on 12/12/22. Patient is on Trulicity and sliding scale at home -Continue Glargine 23u qAM -ISS -Goal blood sugar 110 - 140 (6) Hypertension: Plan: Chronic. Blood pressure acceptable -Continue Metoprolol -Continue Lisinopril -Monitor (7) Paroxysmal atrial fibrillation: Plan: In a sinus rhythm here Anticoagulated on Xarelto -Continue Metoprolol -Continue Xarelto -Continue telemetry monitoring (8) Dyslipidemia: Plan: Chronic -Continue Rosuvastatin 40mg po daily DVT Ppx - On Xarelto Code - Conditional Dispo -continued stay medical with telemetry. Await determination from [facility]-sen[facility] living to see if he can return there versus need for rehab placement I discussed his care with his son on the phone on 12/25 Admission and Anticipated Discharge Date Admission Date: December 24, 2022 Subjective Feeling well. Has an occasional cough, no SOB or CP, No nausea or headache, no abd pains. No diarrhea or constipation. Is eating well. Not on oxygen. Tele with 1st degree AVB and bradycardia, NSR rates 50-60s Review of Systems Review of Systems: All systems reviewed & are unremarkable except as noted in HPI & below Physical Exam Constitutional: WD/WN, vitals as above Eyes: + anicteric sclerae Respiratory: normal respiratory effort, lungs clear to auscultation Cardiovascular: RRR, no murmur, no edema Gastrointestinal (Abdomen): normal bowel sounds, soft, nontender, no hepatosplenomegaly Psychiatric: Orientation: alert, oriented to person, oriented to place, oriented to time and cooperative Results & Data Results & Data ([facility]) Vital Signs (Past 12 Hours) Vital Signs Temp Pulse Resp BP Pulse Ox O2 Del Method 12/25/22 15:01 36.8 C 63 16 122/65 93 Room Air 12/25/22 11:29 37.0 C 69 16 166/70 H 92 Room Air 12/25/22 11:12 Room Air Laboratory Results troponin, CPK, BMP, CBC reviewed PG Care Time/CCT Total # of Minutes Spent Total Time Spent with Patient: Total time spent is greater than 50% in coordination of care (as documented) at patient's floor/unit and/or counseling patient: Coding Level of Care Code 72122 SUB INP/OBS CARE 2/35MIN Diagnoses COVID-19 U07.1 Elevated troponin R77.8 Dementia F03.90 Rhabdomyolysis due to COVID-19 U07.1; M62.82 Diabetes type 2, controlled E11.9 Hypertension I10 Paroxysmal atrial fibrillation I48.0 Dyslipidemia E78.5
[2022-12-25] MEDS ORDERED: RIVAROXABAN 20 MG TAB PO SCH (21:00)
[2022-12-26] MEDS: INSULIN ASPART PER UNIT SC SCH ×3 (08:23→12:24)
[2022-12-26] MEDS: DONEPEZIL HCL 10 MG TAB PO SCH (08:24)
[2022-12-26] MEDS: AVODART~ORDER AWAITING ACTION SCH ×2 (08:24→08:27)
[2022-12-26] MEDS: MEMANTINE HCL 10 MG TAB PO SCH (08:25)
[2022-12-26] MEDS: ASPIRIN 81 MG ECTAB PO SCH (08:25)
[2022-12-26] MEDS: lisinopril 20 MG TAB PO SCH (08:25)
[2022-12-26] MEDS: METOPROLOL SUCC 25MG EXT REL TAB PO SCH (08:25)
[2022-12-26] MEDS: ROSUVASTATIN CALCIUM 20 MG TAB PO SCH (08:26)
[2022-12-26] MEDS: LANTUS PER UNIT CHARGE SQ SCH (09:21)
[2022-12-26] MEDS ORDERED: REMDESIVIR 100 MG in SODIUM CHLORIDE 0.9% 230 ML IV SCH (12:00)
--- NOTE | 2022-12-26 14:11 | Discharge Summary ---
Date of Service December 26, 2022 Admission HPI Per Admitting Provider Terry Quach is an 87yo male presenting from [facility] unit with Covid-19 infection. Patient reports he has generalized weakness, dry cough and difficulty with ambulation ongoing for the last several weeks. By report he did fall x 2 - no LOC or head trauma, no further injury. He denies fever, chills, chest pain, SOB, abdominal pain, nausea or vomiting. In the ER he is afebrile, HD stable, NAD Adequate oxygenation on room air Labs as below, found to have elevated troponin of 260.3. EKG with chronic LBBB - unchanged. Patient denies chest pain. ER Course: ASA 324mg Principal Diagnosis COVID-19 with rhabdomyolysis, Fall, weakness Discharge Exam Constitutional WD/WN, vitals as above Eyes + anicteric sclerae Respiratory normal respiratory effort, lungs clear to auscultation Cardiovascular RRR, no murmur, no edema Gastrointestinal (Abdomen) normal bowel sounds, soft, nontender, no hepatosplenomegaly Psychiatric Orientation: alert, oriented to person, oriented to place, oriented to time and cooperative Discharge Data Allergies Allergy/AdvReac Type Severity Reaction Status Date / Time Sulfa (Sulfonamide Allergy Unknown ON CORAM Verified 12/24/22 20:56 Antibiotics) MED LIST Consultations 12/24/22 20:42 ED Decision to Admit Stat Hospital Course (1) COVID-19: 87yo male presenting from his personal [facility] with Covid-19 infection, generalized weakness, ambulatory dysfunction and malaise. Patient is doing well from a respiratory standpoint. He is not hypoxic and there is no indication for steroid use. He reports he is fully vaccinated and does not recall having Covid in the past. He has a good appetite, no GI symptoms, no headache or fevers. Doing very well, getting stronger -received 2 doses of Remdesivir but none further to be given after discharge -no indication for steroids as not hypoxic -Maintain isolation precautions -Monitor respiratory status -PT/OT evaluation -Supportive care Stable for dc back to [facility] after their review of the PT/OT evals (2) Elevated troponin: Elevated troponin at 260 --> 230--> 13. Patient with chronic LBBB on ECG. No chest pain Likely myocardial demand ischemia secondary to COVID-19 and possibly from mild rhabdomyolysis -Continue ASA and Crestor (3) Dementia: Chronic, Mild. Patient answers questions appropriately and follows commands -Continue Namenda and Aricept -Frequent orientation -Avoidance of potentially delirium-inducing agents (4) Rhabdomyolysis due to COVID-19: Rhabdomyolysis possibly associated with COVID CK in the 800s on admission, received IV fluids and now decreased No further treatment needed (5) Diabetes type 2, controlled: Fairly well controlled. Last [id number]=5.7 on 12/12/22. Patient is on Trulicity and sliding scale at home -Continue Glargine 23u qAM -ISS -Goal blood sugar 110 - 140 (6) Hypertension: Chronic. Blood pressure acceptable -Continue Metoprolol -Continue Lisinopril -Monitor (7) Paroxysmal atrial fibrillation: In a sinus rhythm here Anticoagulated on Xarelto -Continue Metoprolol -Continue Xarelto (8) Dyslipidemia: Chronic -Continue Rosuvastatin 40mg po daily DVT Ppx - On Xarelto Code - Conditional Dispo dc back to [facility] today I discussed his care with his son on the phone on 12/25 Total Time Total Time Spent Total Time Spent (In Minutes): 35 min Discharge Plan Discharge Items Patient Disposition: Personal Retirement Reason For Visit: COVID-19, WEAKNESS Discharge Diagnosis: COVID-19 with mild rhabdomyolysis, fall, weakness Condition on Discharge: Good Activity: As commented below Lifting: Gradually increase as tolerated Bathing: No limitations Exercise/Sports: Gradually increase as tolerated Non-emergency contact: Primary Care Provider Call non-emergency contact if: you have any medication questions, your symptoms worsen and you have a fever Follow-up/Referrals: Loraine branchWheeling [Primary Care Provider] - Diet: Carb Consistent or DM2 and Heart Healthy Addtl Attending Provider Instructions: You were admitted for weakness and a fall after developing COVID-19. You do not require any further medications for your COVID. You had a mild case of rhabdomyolysis (breakdown of muscle cells) which is from your fall and resolved with hydration with IV fluids. You would benefit from outpatient PT/OT evaluations at your personal [facility]. Pending Studies at Discharge: No Stand-Alone Forms: [facility] Skilled Items Patient informed of condition?: Yes DNR: No Discharge Level of Care: Other Communicable Disease: Yes (COVID-19) Discharge Prognosis: Improving Lines: None Urinary Catheter: No Medications and DC Order Prescriptions: Continued donepezil 10 mg tablet 10 mg PO QAM Qty: 90 3RF rosuvastatin 40 mg tablet 40 mg PO QAM Qty: 90 3RF lisinopril 20 mg tablet 20 mg PO DAILY Qty: 90 3RF nitroglycerin 0.4 mg tablet, sublingual 0.4 mg SL DIRECTED PRN (Reason: Chest Pain) Qty: 20 1RF (DME) lancets [OneTouch Delica Lancets] 33 gauge misc See Dose Instructions .ROUTE .MEDSUPPLY Qty: 120 5RF Rx Instructions: Test blood sugars 4 times a day (DME) pen needle, diabetic [BD Ultra-Fine Ros Pen Needle] 32 gauge x 5/32" needle See Rx Instructions .ROUTE .MEDSUPPLY Qty: 400 1RF Rx Instructions: Use to inject insulin 4x per day (DME) OneTouch Verio test strips Strip See Dose Instructions .ROUTE .MEDSUPPLY Qty: 400 3RF Rx Instructions: Test blood sugars 4 times a day: fasting, before lunch, before supper, before bed memantine 10 mg tablet 10 mg PO BID 90 Days Qty: 180 2RF metoprolol succinate 25 mg tablet extended release 24 hr 12.5 mg PO QAM Qty: 90 3RF (DME) OneTouch Verio High Control Solution See Rx Instructions .Route Qty: 1 0RF Rx Instructions: As directed ascorbate calcium (vitamin C) 500 mg tablet 500 mg PO QAM vitamin B complex Capsule 1 cap PO QAM dutasteride 0.5 mg capsule 0.5 mg PO DAILY Qty: 90 3RF cholecalciferol (vitamin D3) 1,000 unit capsule 1,000 units PO QAM aspirin [Adult Low Dose Aspirin] 81 mg tablet,delayed release (DR/EC) 81 mg PO QAM Tresiba FlexTouch U-100 100 unit/mL (3 mL) insulin pen 23 unit subcut QAM Hold Instructions: tyring nph insulin aspart U-100 [Novolog FlexPen U-100 Insulin] 100 unit/mL (3 mL) insulin pen See Rx Instructions .ROUTE .COMPLEX Rx Instructions: TAKES 13 UNITS W/BREAKFAST & LUNCH, 15 UNITS W/DINNER. Xarelto 20 mg tablet 20 mg PO QPM Rx Instructions: must administer with evening meal omeprazole 20 mg capsule,delayed release(DR/EC) 20 mg PO DAILY Rx Instructions: TAKE 1 CAPSULE BY MOUTH EVERY DAY acetaminophen [Tylenol] 325 mg Tablet 650 mg PO Q8H PRN (Reason: Pain) lidocaine 4 % Adhesive Patch,Medicated 1 patch TOPICAL DAILY PRN (Reason: Pain) Rx Instructions: APPLY FOR 12 HOURS, THEN REMOVE. Discharge Orders: Discharge Order (Routine); Ordered 12/26/22 Ordered By: Aishwarya Padron Admission Data Admit Date/Time: 12/24/22 21:33 Attending Provider: Aishwarya Padron Admit Provider: Marce Stringer [facility] Providers: Marce Stringer Coding Level of Care Code HOSP INP/OBS DISCH >30 MIN Diagnoses COVID-19 U07.1 Elevated troponin R77.8 Dementia F03.90 Rhabdomyolysis due to COVID-19 U07.1; M62.82 Diabetes type 2, controlled E11.9 Hypertension I10 Paroxysmal atrial fibrillation I48.0 Dyslipidemia E78.5
== END 2022-12-26 16:40 | disposition home or self-care (01) | DRG 178 ==
LOC: ED 18:41 → SUATTDRO 21:33 → 2N 21:33

== ENCOUNTER 2023-02-05 16:58 | Observation (INO) ==
--- NOTE | 2023-02-05 17:11 | Emergency Department Note ---
Impression & Plan Acute confusion, Weakness, Ambulatory dysfunction, Fall ED Provider Note Provider: Deon Esposito MD DATE OF SERVICE: 02/05/2023 CHIEF COMPLAINT: Fall, weakness HISTORY OF PRESENT ILLNESS: Patient is a 87-year-old gentleman history of dementia, type 2 diabetes, paroxysmal atrial fibrillation on Xarelto, diabetic neuropathy presenting here today via ambulance from [facility] where he res ides. Patient evidently fell to the ground. Reportedly he fell off his bed to the floor. States he might of hit his head. Does know where he has had in his age and birthday. Reportedly is maybe a little more confused has been weak with a bit of a cough. Patient denies any abdominal upset or nausea or vomiting. Denies significant back or leg or arm pain to me. Does states he may have been on the ground for 10 hours which given that is 5:00 in the afternoon seems unlikely given its in the middle of the day. Discussed with [facility] where he resides and reportedly was on the floor very short. But had a fever this morning of 101 and is more confused and not himself. Was given Tylenol for fever earlier this morning. PAST MEDICAL HISTORY: As noted above MEDICATIONS: Reviewed medication list from the facility include Xarelto SOCIAL HISTORY: Resides at [facility] PHYSICAL EXAM: GENERAL: alert and oriented in no acute distress on stretcher and knows his age and birthday well Head: normocephalic and atraumatic EYES: No injection, discharge or icterus. PERRL, EOMI. NECK: Trachea midline. Supple. ENT: Mucous membranes pink and moist. Pharynx without erythema or exudate. LUNGS: Airway patent. No retractions. Breath sounds clear with good air entry bilaterally. HEART: irregular rate and rhythm. No chest wall tenderness ABDOMEN: Soft and non-tender, without guarding or rebound. Stable pelvis. SKIN: Acyanotic, warm, dry, without rashes EXTREMITIES: Without swelling, tenderness or deformity NEUROLOGICAL: Moving all extremities. No aphasia. No facial droop or slurred speech. Normal strength and tone in the extremities. Sensation to gross touch normal. EK bpm atrial fibrillation. Left axis with left bundle branch block noted. No clear acute ST segment elevation meeting Sgarbossa criteria. QTc 481. Compared to previous from December 24 of this year some baseline artifact today but otherwise similar. CONTINUOUS CARDIAC MONITORING: was ordered and showed a heart rate of 70s bpm in atrial fibrillation GCS 15. Patient's laboratory studies and imaging reviewed. Differential includes traumatic injury, infection, dehydration, metabolic abnormality, hypo/hyperglycemia, electrolyte disturbance, anemia, hypoxia, cardiac sources, intracerebral event/neurologic, as well as other pathologies. IMPRESSION/MEDICAL DECISION MAKIN-year-old history of dementia, CAD, type 2 diabetes, and paroxysmal atrial fibrillation on Xarelto after sliding of the floor today and being more confused with a fever this morning according to staff at the facility presents here for evaluation. No evidence of significant trauma on himself. Given more confusion with the anticoagulation did complete CT of the head. Chest x-ray and pelvis x- ray obtained although again I doubt a significant trauma. Basic labs obtained. Urinalysis sent as he did reportedly urinate on the floor earlier. Blood work with very slight leukopenia and slight anemia but not severe. No severe electrolyte abnormalities although magnesium is 1.6. Creatinine stable at 1. Troponin mildly elevated at 60 but downtrending from previous in December of this year. Did review hospitalization in December for medical records when he was COVID-positive with mild troponin elevation from then a days number is less than that. CT of the head per radiology without acute abnormality noted. Did reassess the patient. Has been on ambulate and attempting with nursing he slides to the floor. Also when sitting and talking with some time he does have some underlying confusion. Not making clear sense and discussing what he had for dinner he reports he had x-rays and laboratory studies but is unable to tell me about food. Given his care level at [facility] do not feel he is a can didate at this time given his weakness and ambulatory dysfunction with confusion to return there. Discussed with the hospitalist. 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 CHI (closed head injury) Chronic anticoagulation Chronic prostatitis Chronic rhinitis Closed rib fracture Coronary atherosclerosis of [place] coronary vessel (06/07/12) Dementia Diabetes type 2, controlled 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 Dupuytrens contracture Dysesthesia Dyslipidemia Elevated PSA Enlarged prostate with lower urinary tract symptoms (LUTS) Hematospermia Hypertension Laryngopharyngeal reflux Left shoulder strain Leukopenia Microscopic hematuria Mild aortic regurgitation Mild aortic stenosis Mild mitral regurgitation Myocardial infarction (06/07/12) Nephrolithiasis Nontoxic multinodular goiter Other and unspecified hyperlipidemia (06/07/12) Pancytopenia (~2000) Paroxysmal atrial fibrillation PND (post-nasal drip) Rhabdomyolysis Right rib fracture Sepsis (06/07/12) Vitamin D deficiency Weakness Surgical History History of arthroscopy of knee History of cataract surgery History of colonoscopy History of cystoscopy History of tonsillectomy S/P drug eluting coronary stent placement Status post Mohs surgery Family History Brother Coronary heart disease Father Angina pectoris Carcinoma of pancreas Myocardial infarction Mother Congestive heart failure Breast cancer Unknown Diabetes Heart disease Hypertension Daughter Breast cancer Denies family history of Ovarian cancer Prostate cancer Colorectal cancer Social History Smoking Status: Former smoker Tobacco Type: Cigarettes Second Hand Exposure: No; Hx Alcohol Use: No Hx Substance Use: No Preferred Language: Malay Communication Ability: Impaired Communication Ability Comment: Alert and oriented to person, periods of confusion. Visual Impairment: Limited Hearing Ability: Normal Branch Coordinator Required: No Beliefs That Will Affect Care: None marital status: / Current Living Situation: Prison Current Living Situation Comment: [facility] current occupational status: retired How many Children do You have: 3 Feels Safe at Home: Yes Childhood Exposure to Second-Hand Smoke: No caffeine: Yes Dental Care, Regularly: Yes Physical Activity Frequency: 1-2 Times per Week Seatbelt Use: always Sunscreen Use: Yes Assistive Devices: Cane and Walker Allergies Allergies Allergy/AdvReac Type Severity Reaction Status Date / Time Sulfa (Sulfonamide Allergy Unknown ON HARMONY Verified 02/05/23 18:10 Antibiotics) MED LIST Home Meds Home Medications Medication Instructions Recorded Confirmed cholecalciferol (vitamin D3) 25 1,000 units PO QAM 05/16/19 02/05/23 mcg (1,000 unit) capsule aspirin 81 mg tablet,delayed 81 mg PO QAM 08/05/19 03/23/23 release (Adult Low Dose Aspirin) ascorbate calcium (vitamin C) 500 500 mg PO QAM 03/28/20 02/05/23 mg tablet vitamin B complex 1 cap PO QAM 04/05/20 02/05/23 rivaroxaban 20 mg tablet (Xarelto) 20 mg PO QPM 06/29/21 02/05/23 insulin aspart U-100 100 unit/mL See Rx Instructions .Route .COMPLEX 05/21/22 02/05/23 (3 mL) subcutaneous pen (Novolog FlexPen U-100 Insulin aspart) omeprazole 20 mg capsule,delayed 20 mg PO QAM 10/17/22 02/05/23 release acetaminophen 325 mg tablet 650 mg PO Q8H PRN Pain 12/24/22 02/05/23 (Tylenol) lidocaine 4 % topical patch 1 patch topical DAILY PRN Pain 12/24/22 02/05/23 dutasteride 0.5 mg capsule 0.5 mg PO QAM 02/05/23 02/05/23 insulin degludec 100 unit/mL (3 25 unit subcut QAM 02/05/23 02/05/23 mL) subcutaneous pen (Tresiba FlexTouch U-100 insulin) Previous Rx's Medication Instructions Recorded donepezil 10 mg tablet 10 mg PO QAM #90 tabs 10/26/20 lisinopril 20 mg tablet 20 mg PO DAILY #90 tabs 06/05/21 rosuvastatin 40 mg tablet 40 mg PO QAM #90 tabs 06/05/21 metoprolol succinate 25 mg 12.5 mg PO QAM #90 tabs 06/17/21 tablet,extended release 24 hr nitroglycerin 0.4 mg sublingual 0.4 mg sublingual DIRECTED PRN 08/29/21 tablet Chest Pain #20 tabs blood glucose control, high #1 ea 11/12/21 (OneTouch Verio High Control solution) lancets 33 gauge (OneTouch Delica #120 ea 12/11/21 Lancets) OneTouch Verio test strips (blood #400 ea 12/13/21 sugar diagnostic) pen needle, diabetic 32 gauge x #400 ea 12/13/21 5/32" (BD Ultra-Fine Ros Pen Needle) memantine 10 mg tablet 10 mg PO BID 90 days #180 tabs 07/03/22 Results & Data (ED) Vital Signs Vital Signs - 24 hr 02/05/23 17:14 02/05/23 17:14 02/05/23 17:14 Temperature 37.3 C Temperature Source Oral Pulse Rate 84 73 Pulse Rhythm Regular Regular Pulse Strength Normal Respiratory Rate 18 20 Respiratory Effort / Characteristics Non-Labored Spontaneous Non-Labored Spontaneous Respiratory Depth Normal Normal Respiratory Pattern Regular Blood Pressure 123/67 Blood Pressure Mean 85 Pulse Oximetry 94 993 H 93 Oxygen Delivery Method Room Air Room Air Room Air Sepsis Recent Fever Within 48 Hours No Sepsis New/Unexplained Change in Mental Status No Sepsis Action Taken by Nursing No Action Required Laboratory Data 02/05/23 17:12 02/05/23 17:12 Lab Results 02/05/23 02/05/23 02/05/23 Range/Units 17:10 17:12 17:12 WBC 4.70 L (4.8-10.8) K/ul RBC 3.98 L (4.70-6.10) M/uL Hgb 13.1 L (14.0-18.0) g/dl Hct 37.3 L (42.0-52.0) % MCV 93.7 (80.0-100.0) fL MCH 32.9 (25.0-34.0) pg MCHC 35.1 (32.0-36.0) g/dL RDW Std Deviation 47.9 H (36.4-46.3) fL RDW Coeff of Anaid 13.9 (11.5-14.5) % Plt Count 146 (130-400) K/uL MPV 9.5 (9.4-12.4) fL Immature Gran % (Auto) 0.2 % Neut % (Auto) 70.9 % Lymph % (Auto) 11.3 % [place] % (Auto) 15.7 % Eos % (Auto) 1.5 % Baso % (Auto) 0.4 % Neut # (Auto) 3.33 (1.40-6.50) K/uL Lymph # (Auto) 0.53 L (1.2-3.4) K/uL Sequ[place]ah # (Auto) 0.74 H (0.11-0.59) K/uL Eos # (Auto) 0.07 (0-0.50) K/uL Baso # (Auto) 0.02 (0-0.2) K/uL Immature Gran # (Auto) 0.01 (0.01-0.20) K/uL Sodium 134 L (136-145) mmol/L Potassium 4.1 (3.5-5.1) mmol/L Chloride 99 (98-107) mmol/L Carbon Dioxide 28 (21-32) mmol/L Anion Gap 7 (3-11) BUN 16 (6-23) mg/dl Creatinine 1.04 (0.6-1.4) mg/dl Est Cr Clr Drug Dosing 54.7 ml/min Est GFR ( Amer) 74.5 ml/min Est GFR (Non-Af Amer) 64.3 ml/min BUN/Creatinine Ratio 15.4 (10-20) Glucose 189 H (70-99(Fasting)) mg/dl Calcium 9.3 (8.6-10.3) mg/dl Magnesium 1.6 L (1.7-2.4) mg/dl Total Bilirubin 1.3 H (0.2-1.0) mg/dl AST 20 (13-39) U/L ALT 18 (7-52) U/L Alkaline Phosphatase 69 (34-104) U/L Total Creatine Kinase 126 (30-223) U/L Troponin I High Sens 60.3 H* (0-20) pg/ml Total Protein 6.7 (6.0-8.3) gm/dl Albumin 4.0 (3.4-5.0) gm/dl Globulin 2.7 (2.5-4.0) gm/dl Albumin/Globulin Ratio 1.5 (0.9-2) TSH (0.300-4.500) uIu/ml Urine Color Urine Appearance (Clear) Urine pH (4.5-7.5) Ur Specific [place] (1.000-1.030) Urine Protein (Negative) Urine Glucose (UA) (Negative) Urine Ketones (Negative) Urine Blood (Negative) Urine Nitrite (Negative) Urine Bilirubin (Negative) Urine Urobilinogen (Negative) Ur Leukocyte Esterase (Negative) Urine WBC (Auto) (0-5) /hpf Urine RBC (Auto) (0-4) /hpf U Hyaline Cast (Auto) (0-5) /lpf U Epithel Cells (Auto) (0-5) /lpf Urine Bacteria (Auto) (Negative) SARS-CoV-2 (PCR) POSITIVE A* (Negative) Influenza Type A (PCR) Negative (Neg) Influenza Type B (PCR) Negative (Neg) RSV (RT-PCR) Negative (Neg) 02/05/23 02/05/23 Range/Units 17:12 18:57 WBC (4.8-10.8) K/ul RBC (4.70-6.10) M/uL Hgb (14.0-18.0) g/dl Hct (42.0-52.0) % MCV (80.0-100.0) fL MCH (25.0-34.0) pg MCHC (32.0-36.0) g/dL RDW Std Deviation (36.4-46.3) fL RDW Coeff of Anaid (11.5-14.5) % Plt Count (130-400) K/uL MPV (9.4-12.4) fL Immature Gran % (Auto) % Neut % (Auto) % Lymph % (Auto) % [place] % (Auto) % Eos % (Auto) % Baso % (Auto) % Neut # (Auto) (1.40-6.50) K/uL Lymph # (Auto) (1.2-3.4) K/uL [place] # (Auto) (0.11-0.59) K/uL Eos # (Auto) (0-0.50) K/uL Baso # (Auto) (0-0.2) K/uL Immature Gran # (Auto) (0.01-0.20) K/uL Sodium (136-145) mmol/L Potassium (3.5-5.1) mmol/L Chloride (98-107) mmol/L Carbon Dioxide (21-32) mmol/L Anion Gap (3-11) BUN (6-23) mg/dl Creatinine (0.6-1.4) mg/dl Est Cr Clr Drug Dosing ml/min Est GFR ( Amer) ml/min Est GFR (Non-Af Amer) ml/min BUN/Creatinine Ratio (10-20) Glucose (70-99(Fasting)) mg/dl Calcium (8.6-10.3) mg/dl Magnesium (1.7-2.4) mg/dl Total Bilirubin (0.2-1.0) mg/dl AST (13-39) U/L ALT (7-52) U/L Alkaline Phosphatase (34-104) U/L Total Creatine Kinase (30-223) U/L Troponin I High Sens (0-20) pg/ml Total Protein (6.0-8.3) gm/dl Albumin (3.4-5.0) gm/dl Globulin (2.5-4.0) gm/dl Albumin/Globulin Ratio (0.9-2) TSH 0.919 (0.300-4.500) uIu/ml Urine Color Yellow Urine Appearance Clear (Clear) Urine pH 5.0 (4.5-7.5) Ur Specific [place] 1.018 (1.000-1.030) Urine Protein 2+ H (Negative) Urine Glucose (UA) Negative (Negative) Urine Ketones Trace H (Negative) Urine Blood Negative (Negative) Urine Nitrite Negative (Negative) Urine Bilirubin Negative (Negative) Urine Urobilinogen Negative (Negative) Ur Leukocyte Esterase Negative (Negative) Urine WBC (Auto) 1-5 (0-5) /hpf Urine RBC (Auto) 0-4 (0-4) /hpf U Hyaline Cast (Auto) 1-5 (0-5) /lpf U Epithel Cells (Auto) 5-10 H (0-5) /lpf Urine Bacteria (Auto) Negative (Negative) SARS-CoV-2 (PCR) (Negative) Influenza Type A (PCR) (Neg) Influenza Type B (PCR) (Neg) RSV (RT-PCR) (Neg) Imaging Data Radiologist's Impression: Chest X-Ray 02/05/23 17:11 XR chest 1V portable HISTORY: weakness, fall COMPARISON: Chest 12/24/2022. FINDINGS: No pneumothorax. No pleural effusions. There are old, healed left- sided rib fractures again noted. No new focal lung consolidations to suggest a pneumonia. No evidence for pulmonary edema. The cardiac silhouette remains mildly enlarged. There are low lung volumes. IMPRESSION: No significant change compared to the prior study. No acute process. ACT 112: Negative or not required by law. Electronically signed by: Tyrone Sagastume M.D. 02/05/2023 6:[address] 02/05/23 17:[address] DOSE: 1074.96 mGy.cm HISTORY: weak, fall TECHNIQUE: Multiaxial CT images of the head were performed without the use of intravenous contrast. Automated exposure control was utilized for this study. A dose lowering technique was utilized adhering to the principles of ALARA. Comparison: Head CT 10/17/2022. Findings: Mild mucosal thickening within the ethmoid air cells and maxillary sinuses. This is not significantly changed. The mastoid air cells are clear. The calvarium and skull base are intact. There is no mass, hematoma, midline shift, acute infarct. White matter hypodensity is nonspecific but suggestive of microvascular ischemic change. The ventricles and sulci demonstrate mild age- related involutional changes. Impression: Motion artifact. No definite acute intracranial abnormality. ACT 112: Negative or not required by law. Electronically signed by: Tyrone Sagastume M.D. 02/05/2023 6:25 PM Pelvis X-Ray 02/05/23 17:12 XR pelvis 1-2V routine CLINICAL HISTORY: fall COMPARISON STUDY: Abdomen and pelvis CT 10/17/2022. FINDINGS: No fracture or dislocation within the pelvis or hips. The sacrum appears intact. Moderate degenerative changes within the pelvis or hips. Va scular calcifications are noted. No radiopaque foreign bodies. IMPRESSION: No fracture or dislocation within the pelvis or hips. ACT 112: Negative or not required by law. Electronically signed by: Tyrone Sagastume M.D. 02/05/2023 7:22 PM Discharge Plan Visit Data Chief Complaint: Fall Stated Complaint: FELL OUT OF BED ED Provider: Deon Esposito Discharge Problem: Acute confusion, Weakness, Ambulatory dysfunction, Fall Patient Disposition: Being Evaluated by Hospitalist Forms Stand Alone Forms: [facility] Prescriptions Prescriptions: No Action donepezil 10 mg tablet 10 mg PO QAM Qty: 90 3RF rosuvastatin 40 mg tablet 40 mg PO QAM Qty: 90 3RF lisinopril 20 mg tablet 20 mg PO DAILY Qty: 90 3RF nitroglycerin 0.4 mg tablet, sublingual 0.4 mg SL DIRECTED PRN (Reason: Chest Pain) Qty: 20 1RF Rx Instructions: dissolve 1 tablet under tongue every 5 min..max 3 tabs as needed for chest pain..after 2nd dose call 911 (DME) lancets [OneTouch Delica Lancets] 33 gauge misc See Dose Instructions .ROUTE .MEDSUPPLY Qty: 120 5RF Rx Instructions: Test blood sugars 4 times a day (DME) pen needle, diabetic [BD Ultra-Fine Ros Pen Needle] 32 gauge x 5/32" needle See Rx Instructions .ROUTE .MEDSUPPLY Qty: 400 1RF Rx Instructions: Use to inject insulin 4x per day (DME) OneTouch Verio test strips Strip See Dose Instructions .ROUTE .MEDSUPPLY Qty: 400 3RF Rx Instructions: Test blood sugars 4 times a day: fasting, before lunch, before supper, before bed memantine 10 mg tablet 10 mg PO BID 90 Days Qty: 180 2RF metoprolol succinate 25 mg tablet extended release 24 hr 12.5 mg PO QAM Qty: 90 3RF (DME) OneTouch Verio High Control Solution See Rx Instructions .Route Qty: 1 0RF Rx Instructions: As directed ascorbate calcium (vitamin C) 500 mg tablet 500 mg PO QAM vitamin B complex Capsule 1 cap PO QAM cholecalciferol (vitamin D3) 1,000 unit capsule 1,000 units PO QAM aspirin [Adult Low Dose Aspirin] 81 mg tablet,delayed release (DR/EC) 81 mg PO QAM insulin aspart U-100 [Novolog FlexPen U-100 Insulin] 100 unit/mL (3 mL) insulin pen See Rx Instructions .ROUTE .COMPLEX Rx Instructions: TAKES 13 UNITS W/BREAKFAST & LUNCH, 15 UNITS W/DINNER. dutasteride 0.5 mg capsule 0.5 mg PO QAM insulin degludec [Tresiba FlexTouch U-100] 100 unit/mL (3 mL) insulin pen 25 unit SUBCUT QAM Xarelto 20 mg tablet 20 mg PO QPM Rx Instructions: must administer with evening meal omeprazole 20 mg capsule,delayed release(DR/EC) 20 mg PO QAM Rx Instructions: TAKE 1 CAPSULE BY MOUTH EVERY DAY acetaminophen [Tylenol] 325 mg Tablet 650 mg PO Q8H PRN (Reason: Pain) lidocaine 4 % Adhesive Patch,Medicated 1 patch TOPICAL DAILY PRN (Reason: Pain) Rx Instructions: APPLY FOR 12 HOURS, THEN REMOVE. Referrals Referrals: [facility] [Primary Care Provider] - Fall Qualifiers: Encounter type: initial encounter Qualified Code(s): W19.XXXA - Unspecified fal l, initial encounter
[2023-02-05 17:44] LABS: Basophils # (auto) 0.02 K/uL (0-0.2); Basophils % (auto) 0.4 %; Eosinophils # (auto) 0.07 K/uL (0-0.50); Eosinophils % (auto) 1.5 %; Hematocrit (blood only) 37.3 % (42.0-52.0); Hemoglobin 13.1 g/dl (14.0-18.0); Immature Granulocytes # (auto) 0.01 K/uL (0.01-0.20); Immature Granulocytes % (auto) 0.2 %; Lymphocytes # (auto) 0.53 K/uL (1.2-3.4); Lymphocytes % (auto) 11.3 %; Mean Corpuscular Hemoglobin 32.9 pg (25.0-34.0); Mean Corpuscular Hgb Conc 35.1 g/dL (32.0-36.0); Mean Corpuscular Volume 93.7 fL (80.0-100.0); Mean Platelet Volume 9.5 fL (9.4-12.4); Monocytes # (auto) 0.74 K/uL (0.11-0.59); Monocytes % (auto) 15.7 %; Neutrophils # (auto) 3.33 K/uL (1.40-6.50); Neutrophils % (auto) 70.9 %; Platelet Count 146 K/uL (130-400); RDW Coefficient of Variation 13.9 % (11.5-14.5); RDW Standard Deviation 47.9 fL (36.4-46.3); Red Blood Count 3.98 M/uL (4.70-6.10)
[2023-02-05 17:54] LABS: Albumin Globulin Ratio 1.5 (0.9-2); BUN Creatinine Ratio 15.4 (10-20); Bilirubin,Total 1.3 mg/dl (0.2-1.0); Calcium 9.3 mg/dl (8.6-10.3); Creatinine Clr Calc Pharmacy 54.7 ml/min; Est GFR (African American) 74.5 ml/min; Est GFR (Non-African American) 64.3 ml/min; Globulin 2.7 gm/dl (2.5-4.0); Magnesium 1.6 mg/dl (1.7-2.4); Potassium 4.1 mmol/L (3.5-5.1); Total Protein 6.7 gm/dl (6.0-8.3)
[2023-02-05 18:03] LABS: Troponin I High Sensitivity 60.3 pg/ml (0-20)
[2023-02-05 18:12] LABS: Influenza A virus by PCR Negative (Neg); Influenza B virus by PCR Negative (Neg); RSV by PCR Negative (Neg)
[2023-02-05 18:16] LABS: SARS CoV2 RNA(COVID-19) Ceph POSITIVE (Negative)
--- NOTE | 2023-02-05 18:26 | CT Scan Report ---
HEAD CT NONCONTRAST CT DOSE: 1074.96 mGy.cm HISTORY: weak, fall TECHNIQUE: Multiaxial CT images of the head were performed without the use of intravenous contrast. A utomated exposure control was utilized for this study. A dose lowering technique was utilized adheri ng to the principles of ALARA. Comparison: Head CT 10/17/2022. Findings: Mild mucosal thickening within the ethmoid air cells and maxillary sinuses. This is not sig nificantly changed. The mastoid air cells are clear. The calvarium and skull base are intact. There i s no mass, hematoma, midline shift, acute infarct. White matter hypodensity is nonspecific but sugges tive of microvascular ischemic change. The ventricles and sulci demonstrate mild age-related involuti onal changes. Impression: Motion artifact. No definite acute intracranial abnormality. ACT 112: Negative or not required by law. Electronically signed by: Tyrone Saagstume M.D. 02/05/2023 6:25 PM
--- NOTE | 2023-02-05 18:59 | XRay Report ---
XR chest 1V portable HISTORY: weakness, fall COMPARISON: Chest 12/24/2022. FINDINGS: No pneumothorax. No pleural effusions. There are old, healed left-sided rib fractures again noted. No new focal lung consolidations to suggest a pneumonia. No evidence for pulmonary edema. The cardiac silhouette remains mildly enlarged. There are low lung volumes. IMPRESSION: No significant change compared to the prior study. No acute process. ACT 112: Negative or not required by law. Electronically signed by: Tyrone Sagastume M.D. 02/05/2023 6:57 PM
[2023-02-05 19:11] LABS: Appearance Urine Clear (Clear); Bacteria Urine Automated Negative (Negative); Bilirubin Urine Negative (Negative); Blood Urine Negative (Negative); Color Urine Yellow; Glucose Urine UA Negative (Negative); Ketones Urine Trace (Negative); Leukocyte Esterase Urine Negative (Negative); Nitrite Urine Negative (Negative); Protein Urine 2+ (Negative); RBC Urine Automated 0-4 /hpf (0-4); Specific Gravity Urine 1.018 (1.000-1.030); Urobilinogen Urine Negative (Negative)
--- NOTE | 2023-02-05 19:23 | XRay Report ---
XR pelvis 1-2V routine CLINICAL HISTORY: fall COMPARISON STUDY: Abdomen and pelvis CT 10/17/2022. FINDINGS: No fracture or dislocation within the pelvis or hips. The sacrum appears intact. Moderate d egenerative changes within the pelvis or hips. Vascular calcifications are noted. No radiopaque forei gn bodies. IMPRESSION: No fracture or dislocation within the pelvis or hips. ACT 112: Negative or not required by law. Electronically signed by: Tyrone Sagastume M.D. 02/05/2023 7:22 PM
--- NOTE | 2023-02-05 22:05 | History & Physical Report ---
Date of Service February 05, 2023 Assessment & Plan (1) Acute confusion: Plan: 87-year-old male presenting from his personal half-way with fever, increased confusion and unwitnessed fall. Patient is oriented to person only. Is able to answer questions and follow commands. Confusion most likely secondary to acute infection. Observation to medical Frequent orientation Follow cultures Gentle hydration with LR at 80 mL/h x 2 L (2) Weakness: Plan: Patient with diffuse, generalized weakness. Unable to ambulate. He is able to walk at baseline. Most likely secondary to acute infection. Unwitnessed fall with possible head trauma. Patient is on Xarelto anticoagulation for history of paroxysmal atrial fibrillation. CT of the head performed with no definite acute intracranial abnormality PT/OT evaluation Fall precautions Neurochecks with [place] scale every 4 hours (3) COVID-19: Plan: Patient positive for COVID on 12/24/2022 on NAAT test. He tested positive again today on a PCR test. Uncertain significance. PCR testing can remain positive for up to 3 months after initial infection. Given the patient's new fever, confusion, ongoing cough and generalized weakness cannot definitively rule out new acute infection. Stable respiratory status. No indication at this time for IV dexamethasone or remdesivir therapy Maintain isolation precautions Monitor respiratory status (4) Ambulatory dysfunction: Plan: Patient is ambulatory at baseline. Having a difficult time walking currently. PT/OT evaluation Fall precautions (5) Paroxysmal atrial fibrillation: Plan: Rate controlled. On anticoagulation with Xarelto Continue metoprolol 12.5 mg p.o. every morning Continue Xarelto 20 mg p.o. every afternoon (6) Dyslipidemia: Plan: Chronic. Stable. Continue Crestor 40 mg p.o. every morning (7) Diabetes type 2, controlled: Plan: Chronic. Last hemoglobin A1c = 6.7 on 12/12/2022. Patient is on Tresiba and insulin aspart at home Lantus 10 units twice daily Insulin sliding scale Given patient's advanced age and dementia would strongly consider targeting a higher hemoglobin A1c to avoid complications associated with hypoglycemia which is often seen with strict glycemic control in the elderly. (8) Dementia: Plan: Chronic. Continue Namenda 10 mg p.o. twice daily Continue Aricept 10 mg p.o. every morning Frequent orientation Avoidance of delirium inducing agents where possible (9) Hypertension: Plan: Chronic. Well-controlled blood pressure currently 123/67 Continue lisinopril 20 mg p.o. daily Continue metoprolol 12.5 mg p.o. every morning History of Present Illness Chief Complaint: Fever, fall, confusion Primary Care Provider: [facility] [place] Terry Quach is an 87-year-old male with history of diabetes, coronary artery disease, paroxysmal atrial fibrillation and dementia presenting from [facility] after a fall and confusion. Patient also febrile to 101 today. Patient reportedly fell to the ground off his bed earlier today. He may have hit his head. Nursing staff reports he was not on the floor for prolonged period of time however, patient reports he was on the floor for greater than 10 hours (unlikely in a staff personal-half-way?) Patient is slightly confused and reports a cough productive for yellow sputum. He has no further complaints at this time. He did have COVID on December 24 (tested positive on NAAT test). In the ER he is afebrile, hemodynamically stable, no acute distress. Saturating 93% on room air. Patient unable to ambulate in the ER. Is not able to return to [facility] in his current state Allergies Allergy/AdvReac Type Severity Reaction Status Date / Time Sulfa (Sulfonamide Allergy Unknown ON QUITMAN Verified 02/05/23 18:10 Antibiotics) MED LIST Home Medications Medication Instructions Recorded Confirmed Type cholecalciferol (vitamin D3) 25 1,000 units PO QAM 05/16/19 02/05/23 History mcg (1,000 unit) capsule aspirin 81 mg tablet,delayed 81 mg PO QAM 06/20/19 02/05/23 History release (Adult Low Dose Aspirin) ascorbate calcium (vitamin C) 500 500 mg PO QAM 03/28/20 02/05/23 History mg tablet vitamin B complex 1 cap PO QAM 04/05/20 02/05/23 History donepezil 10 mg tablet 10 mg PO QAM #90 tabs 10/26/20 02/05/23 Rx lisinopril 20 mg tablet 20 mg PO DAILY #90 tabs 06/05/21 02/05/23 Rx rosuvastatin 40 mg tablet 40 mg PO QAM #90 tabs 06/05/21 02/05/23 Rx metoprolol succinate 25 mg 12.5 mg PO QAM #90 tabs 06/17/21 02/05/23 Rx tablet,extended release 24 hr rivaroxaban 20 mg tablet (Xarelto) 20 mg PO QPM 06/29/21 02/05/23 History nitroglycerin 0.4 mg sublingual 0.4 mg sublingual DIRECTED PRN 08/29/21 02/05/23 Rx tablet Chest Pain #20 tabs blood glucose control, high #1 ea 11/12/21 02/05/23 Rx (OneTouch Verio High Control solution) lancets 33 gauge (OneTouch Delica #120 ea 12/11/21 12/19/22 Rx Lancets) OneTouch Verio test strips (blood #400 ea 12/13/21 12/19/22 Rx sugar diagnostic) pen needle, diabetic 32 gauge x #400 ea 12/13/21 11/26/22 Rx 32" (BD Ultra-Fine Ros Pen Needle) insulin aspart U-100 100 unit/mL See Rx Instructions .Route .COMPLEX 05/21/22 02/05/23 History (3 mL) subcutaneous pen (Novolog FlexPen U-100 Insulin aspart) memantine 10 mg tablet 10 mg PO BID 90 days #180 tabs 07/03/22 02/05/23 Rx omeprazole 20 mg capsule,delayed 20 mg PO QAM 10/17/22 02/05/23 History release acetaminophen 325 mg tablet 650 mg PO Q8H PRN Pain 12/24/22 02/05/23 History (Tylenol) lidocaine 4 % topical patch 1 patch topical DAILY PRN Pain 12/24/22 02/05/23 History dutasteride 0.5 mg capsule 0.5 mg PO QAM 02/05/23 02/05/23 History insulin degludec 100 unit/mL (3 25 unit subcut QAM 02/05/23 02/05/23 History mL) subcutaneous pen (Tresiba FlexTouch U-100 insulin) Past Med/Surg History Medical History Abnormal electrocardiogram Albuminuria 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 CHI (closed head injury) Chronic anticoagulation Chronic prostatitis Chronic rhinitis Closed rib fracture Coronary atherosclerosis of ho-chunk coronary vessel (06/07/12) Dementia Diabetes type 2, controlled 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 Dupuytrens contracture Dysesthesia Dyslipidemia Elevated PSA Enlarged prostate with lower urinary tract symptoms (LUTS) Hematospermia Hypertension Laryngopharyngeal reflux Left shoulder strain Leukopenia Microscopic hematuria Mild aortic regurgitation Mild aortic stenosis Mild mitral regurgitation Myocardial infarction (06/07/12) Nephrolithiasis Nontoxic multinodular goiter Other and unspecified hyperlipidemia (06/07/12) Pancytopenia (~2000) Paroxysmal atrial fibrillation PND (post-nasal drip) Rhabdomyolysis Right rib fracture Sepsis (06/07/12) Vitamin D deficiency Weakness Surgical History History of arthroscopy of knee History of cataract surgery History of colonoscopy History of cystoscopy History of tonsillectomy S/P drug eluting coronary stent placement Status post Mohs surgery Family History Brother Coronary heart disease Father Angina pectoris Carcinoma of pancreas Myocardial infarction Mother Congestive heart failure Breast cancer Unknown Diabetes Heart disease Hypertension Daughter Breast cancer Denies family history of Ovarian cancer Prostate cancer Colorectal cancer Social History Smoking Status: Former smoker Tobacco Type: Cigarettes Second Hand Exposure: No; Hx Alcohol Use: No Hx Substance Use: No Preferred Language: Nepali Communication Ability: Impaired Communication Ability Comment: Alert and oriented to person, periods of confusion. Visual Impairment: Limited Hearing Ability: Normal Bell Neck Hammerer Required: No Beliefs That Will Affect Care: None marital status: / Current Living Situation: Detention Current Living Situation Comment: [facility] current occupational status: retired How many Children do You have: 3 Feels Safe at Home: Yes Childhood Exposure to Second-Hand Smoke: No caffeine: Yes Dental Care, Regularly: Yes Physical Activity Frequency: 1-2 Times per Week Seatbelt Use: always Sunscreen Use: Yes Assistive Devices: Cane and Walker Review of Systems Review of Systems: All systems reviewed & are unremarkable except as noted in HPI & below Physical Exam Physical Exam: General: patient resting comfortably, NAD, non-toxic in appearance, AA&O to self, somnolent Skin: warm, dry, intact, no rashes or lesions HEENT: NC/AT, PERRL, EOMI, anicteric sclera, conjunctiva without injection, external ear normal to inspection and nontender, nares patent, moist mucus membranes, dentition intact, no oropharyngeal lesions, neck supple, trachea midline, no LAD, no thyromegaly, no JVD Heart: +S1/S2, irregular, no m/r/g Lungs: equal air entry bilaterally, no rales/rhonchi/wheezes Abd: +BS, soft, NT/ND, no masses/organomegaly/ascites Ext: warm, 2+ pulses in UE/LE bilaterally, no clubbing/cyanosis or edema Neuro: nonfocal, patient AA&O to self, speech intact, no facial droop, moving all extremities on command with equal strength 5/5 Results & Data Results & Data Vital Signs (Past 12 Hours) Vital Signs Temp Pulse Resp BP Pulse Ox O2 Del Method 02/05/23 17:14 73 93 Room Air 02/05/23 17:14 20 993 H Room Air 02/05/23 17:14 37.3 C 84 18 123/67 94 Room Air Laboratory Results Laboratory Results WBC 4.70 K/ul (4.8-10.8) L 02/05/23 17:12 RBC 3.98 M/uL (4.70-6.10) L 02/05/23 17:12 Hgb 13.1 g/dl (14.0-18.0) L 02/05/23 17:12 Hct 37.3 % (42.0-52.0) L 02/05/23 17:12 MCV 93.7 fL (80.0-100.0) 02/05/23 17:12 MCH 32.9 pg (25.0-34.0) 02/05/23 17:12 MCHC 35.1 g/dL (32.0-36.0) 02/05/23 17:12 RDW Std Deviation 47.9 fL (36.4-46.3) H 02/05/23 17:12 RDW Coeff of Anaid 13.9 % (11.5-14.5) 02/05/23 17:12 Plt Count 146 K/uL (130-400) 02/05/23 17:12 MPV 9.5 fL (9.4-12.4) 02/05/23 17:12 Immature Gran % (Auto) 0.2 % 02/05/23 17:12 Neut % (Auto) 70.9 % 02/05/23 17:12 Lymph % (Auto) 11.3 % 02/05/23 17:12 [place] % (Auto) 15.7 % 02/05/23 17:12 Eos % (Auto) 1.5 % 02/05/23 17:12 Baso % (Auto) 0.4 % 02/05/23 17:12 Neut # (Auto) 3.33 K/uL (1.40-6.50) 02/05/23 17:12 Lymph # (Auto) 0.53 K/uL (1.2-3.4) L 02/05/23 17:12 [place] # (Auto) 0.74 K/uL (0.11-0.59) H 02/05/23 17:12 Eos # (Auto) 0.07 K/uL (0-0.50) 02/05/23 17:12 Baso # (Auto) 0.02 K/uL (0-0.2) 02/05/23 17:12 Immature Gran # (Auto) 0.01 K/uL (0.01-0.20) 02/05/23 17:12 Sodium 134 mmol/L (136-145) L 02/05/23 17:12 Potassium 4.1 mmol/L (3.5-5.1) 02/05/23 17:12 Chloride 99 mmol/L (98-107) 02/05/23 17:12 Carbon Dioxide 28 mmol/L (21-32) 02/05/23 17:12 Anion Gap 7 (3-11) 02/05/23 17:12 BUN 16 mg/dl (6-23) 02/05/23 17:12 Creatinine 1.04 mg/dl (0.6-1.4) 02/05/23 17:12 Est Cr Clr Drug Dosing 54.7 ml/min 02/05/23 17:12 Est GFR ( Amer) 74.5 ml/min 02/05/23 17:12 Est GFR (Non-Af Amer) 64.3 ml/min 02/05/23 17:12 BUN/Creatinine Ratio 15.4 (10-20) 02/05/23 17:12 Glucose 189 mg/dl (70-99(Fasting)) H 02/05/23 17:12 POC Glucose 174 mg/dl (70-99) H 02/05/23 23:20 Calcium 9.3 mg/dl (8.6-10.3) 02/05/23 17:12 Magnesium 1.6 mg/dl (1.7-2.4) L 02/05/23 17:12 Total Bilirubin 1.3 mg/dl (0.2-1.0) H 02/05/23 17:12 AST 20 U/L (13-39) 02/05/23 17:12 ALT 18 U/L (7-52) 02/05/23 17:12 Alkaline Phosphatase 69 U/L (34-104) 02/05/23 17:12 Total Creatine Kinase 126 U/L (30-223) 02/05/23 17:12 Troponin I High Sens 60.3 pg/ml (0-20) H* 02/05/23 17:12 Total Protein 6.7 gm/dl (6.0-8.3) 02/05/23 17:12 Albumin 4.0 gm/dl (3.4-5.0) 02/05/23 17:12 Globulin 2.7 gm/dl (2.5-4.0) 02/05/23 17:12 Albumin/Globulin Ratio 1.5 (0.9-2) 02/05/23 17:12 Procalcitonin 0.08 ng/ml (0-0.5) 02/05/23 17:12 TSH 0.919 uIu/ml (0.300-4.500) 02/05/23 17:12 Urine Color Yellow 02/05/23 18:57 Urine Appearance Clear (Clear) 02/05/23 18:57 Urine pH 5.0 (4.5-7.5) 02/05/23 18:57 Ur Specific Mcintosh 1.018 (1.000-1.030) 02/05/23 18:57 Urine Protein 2+ (Negative) H 02/05/23 18:57 Urine Glucose (UA) Negative (Negative) 02/05/23 18:57 Urine Ketones Trace (Negative) H 02/05/23 18:57 Urine Blood Negative (Negative) 02/05/23 18:57 Urine Nitrite Negative (Negative) 02/05/23 18:57 Urine Bilirubin Negative (Negative) 02/05/23 18:57 Urine Urobilinogen Negative (Negative) 02/05/23 18:57 Ur Leukocyte Esterase Negative (Negative) 02/05/23 18:57 Urine WBC (Auto) 1-5 /hpf (0-5) 02/05/23 18:57 Urine RBC (Auto) 0-4 /hpf (0-4) 02/05/23 18:57 U Hyaline Cast (Auto) 1-5 /lpf (0-5) 02/05/23 18:57 U Epithel Cells (Auto) 5-10 /lpf (0-5) H 02/05/23 18:57 Urine Bacteria (Auto) Negative (Negative) 02/05/23 18:57 SARS-CoV-2 (PCR) POSITIVE (Negative) A* 02/05/23 17:10 Influenza Type A (PCR) Negative (Neg) 02/05/23 17:10 Influenza Type B (PCR) Negative (Neg) 02/05/23 17:10 RSV (RT-PCR) Negative (Neg) 02/05/23 17:10 Impressions Chest X-Ray 02/05/23 17:11 XR chest 1V portable HISTORY: weakness, fall COMPARISON: Chest 12/24/2022. FINDINGS: No pneumothorax. No pleural effusions. There are old, healed left- sided rib fractures again noted. No new focal lung consolidations to suggest a pneumonia. No evidence for pulmonary edema. The cardiac silhouette remains mildly enlarged. There are low lung volumes. IMPRESSION: No significant change compared to the prior study. No acute process. ACT 112: Negative or not required by law. Electronically signed by: Tyrone Sagastume M.D. 02/05/2023 6:[address] 02/05/23 17:[address] DOSE: 1074.96 mGy.cm HISTORY: weak, fall TECHNIQUE: Multiaxial CT images of the head were performed without the use of intravenous contrast. Automated exposure control was utilized for this study. A dose lowering technique was utilized adhering to the principles of ALARA. Comparison: Head CT 10/17/2022. Findings: Mild mucosal thickening within the ethmoid air cells and maxillary sinuses. This is not significantly changed. The mastoid air cells are clear. The calvarium and skull base are intact. There is no mass, hematoma, midline shift, acute infarct. White matter hypodensity is nonspecific but suggestive of microvascular ischemic change. The ventricles and sulci demonstrate mild age- related involutional changes. Impression: Motion artifact. No definite acute intracranial abnormality. ACT 112: Negative or not required by law. Electronically signed by: Tyrone Sagastume M.D. 02/05/2023 6:25 PM Pelvis X-Ray 02/05/23 17:12 XR pelvis 1-2V routine CLINICAL HISTORY: fall COMPARISON STUDY: Abdomen and pelvis CT 10/17/2022. FINDINGS: No fracture or dislocation within the pelvis or hips. The sacrum appears intact. Moderate degenerative changes within the pelvis or hips. Vascular calcifications are noted. No radiopaque foreign bodies. IMPRESSION: No fracture or dislocation within the pelvis or hips. ACT 112: Negative or not required by law. Electronically signed by: Tyrone Sagastume M.D. 02/05/2023 7:22 PM PG Care Time/CCT Total # of Minutes Spent Total Time Spent with Patient: Total time spent is greater than 50% in coordination of care (as documented) at patient's floor/unit and/or counseling patient: Coding Level of Care Code 85933 INT INP/OBS CARE 375MIN Diagnoses Acute confusion R41.0 Weakness R53.1 COVID-19 U07.1 Ambulatory dysfunction R26.2 Paroxysmal atrial fibrillation I48.0 Dyslipidemia E78.5 Diabetes type 2, controlled E11.9 Dementia F03.90 Hypertension I10
[2023-02-05] MEDS ORDERED: GLUCOSE 10 TAB/TUBE PO PRN (23:17)
[2023-02-05] MEDS ORDERED: CARBOHYDRATES FOR HYPOGLYCEMIA PO PRN (23:17)
[2023-02-05] MEDS ORDERED: GLUCOSE 40% GEL 15 GM TUBE PO PRN (23:17)
[2023-02-05] MEDS ORDERED: DEXTROSE 50% 50 ML SYRINGE IV PRN (23:17)
[2023-02-05] MEDS ORDERED: GLUCAGON FOR INJ 1 MG VIAL SQ PRN (23:17)
[2023-02-05] MEDS ORDERED: ACETAMINOPHEN 325 MG TAB PO PRN (23:17)
[2023-02-05] MEDS ORDERED: INFLUENZA VACCINE HIGH DOSE PF 65+ 0.7 ML SYR IM ONE (23:47)
[2023-02-05] MEDS: LACTATED RINGER'S 1,000 ML IV SCH (23:56)
[2023-02-06] MEDS: MAGNESIUM SULFATE / D5W 1 GM/100 ML BAG IV SCH ×2 (00:15→02:18)
[2023-02-06] MEDS: INSULIN ASPART PER UNIT CHARGE SC SCH ×5 (00:18→20:05)
[2023-02-06] MEDS: RIVAROXABAN 20 MG TAB PO SCH ×2 (02:18→17:13)
[2023-02-06 07:20] LABS: Hematocrit (blood only) 36.9 % (42.0-52.0); Mean Corpuscular Hemoglobin 32.7 pg (25.0-34.0); Mean Corpuscular Hgb Conc 35.2 g/dL (32.0-36.0); Mean Corpuscular Volume 92.7 fL (80.0-100.0); Mean Platelet Volume 9.6 fL (9.4-12.4); Platelet Count 150 K/uL (130-400); RDW Coefficient of Variation 13.7 % (11.5-14.5); RDW Standard Deviation 46.9 fL (36.4-46.3); Red Blood Count 3.98 M/uL (4.70-6.10); White Blood Count 4.41 K/ul (4.8-10.8)
[2023-02-06 07:50] LABS: Albumin Level 3.8 gm/dl (3.4-5.0); BUN Creatinine Ratio 13.8 (10-20); Bilirubin Direct 0.3 mg/dl (0-0.2); Bilirubin,Total 1.3 mg/dl (0.2-1.0); Calcium 8.8 mg/dl (8.6-10.3); Creatinine Clr Calc Pharmacy 61.7 ml/min; Est GFR (African American) 84.2 ml/min; Est GFR (Non-African American) 72.6 ml/min; Magnesium 1.9 mg/dl (1.7-2.4); Phosphorus 2.8 mg/dl (2.5-4.9); Potassium 3.8 mmol/L (3.5-5.1); Total Protein 6.3 gm/dl (6.0-8.3)
[2023-02-06] MEDS: LANTUS PER UNIT CHARGE SQ SCH ×2 (08:22→20:45)
[2023-02-06] MEDS: DONEPEZIL HCL 10 MG TAB PO SCH (08:35)
[2023-02-06] MEDS: MEMANTINE HCL 10 MG TAB PO SCH ×2 (08:35→20:04)
[2023-02-06] MEDS: ASPIRIN 81 MG ECTAB PO SCH (08:35)
[2023-02-06] MEDS: lisinopril 20 MG TAB PO SCH (08:35)
[2023-02-06] MEDS: PANTOprazole 40 MG TAB PO SCH (08:36)
[2023-02-06] MEDS: ROSUVASTATIN CALCIUM 20 MG TAB PO SCH (08:36)
[2023-02-06] MEDS: LIDOCAINE 5% 1 PATCH TD SCH (08:36)
[2023-02-06] MEDS: METOPROLOL SUCC 25MG EXT REL TAB PO SCH (08:36)
--- NOTE | 2023-02-06 11:26 | Electrocardiogram Report ---
Test Reason : Blood Pressure : / mmHG Vent. Rate : 076 BPM Atrial Rate : 101 BPM P-R Int : 000 ms QRS Dur : 148 ms QT Int : 428 ms P-R-T Axes : 000 -44 085 degrees QTc Int : 481 ms Poor data quality, interpretation may be adversely affected Atrial fibrillation Left axis deviation Left bundle branch block Abnormal ECG When compared with ECG of 24-DEC-2022 18:49, Atrial fibrillation has replaced Sinus rhythm Confirmed by Kanu Thakur ([id number]) on 02/06/2023 11:26:36 AM Referred By: [facility] Confirmed By:Amado Thakur
[2023-02-06] MEDS: LACTATED RINGER'S 1,000 ML IV SCH (12:10)
--- NOTE | 2023-02-06 14:25 | Hospitalist Progress Note ---
Date of Service February 06, 2023 Assessment & Plan (1) Acute confusion: Plan: Metabolic encephalopathy present on admission. Hopefully this will resolve quickly. Supportive care. He may have a viral infection. No bacterial infection seen on culture yet. (2) Weakness: Plan: Supportive care. OT and PT assessments ordered. (3) COVID-19: Plan: Patient positive for COVID on 12/24/2022 on NAAT test. He tested positive again on admission with PCR test. It is possible he could have omicron variant given the patient's new fever, confusion, ongoing cough and generalized weakness. Stable respiratory status. No indication at this time for IV dexamethasone or remdesivir therapy (4) Ambulatory dysfunction: Plan: Patient is ambulatory at baseline. Having a difficult time walking currently. PT/OT evaluation. Fall precautions (5) Paroxysmal atrial fibrillation: Plan: Rate controlled. On anticoagulation with Xarelto. Continue metoprolol. Telemetry (6) Dyslipidemia: Plan: Chronic. Stable. Continue Crestor (7) Diabetes type 2, controlled: Plan: Last hemoglobin A1c = 6.7 on 12/12/2022. Patient is on Tresiba and insulin aspart at home. Lantus therapy while hospitalized. Sliding scale coverage. ADA diet (8) Dementia: Plan: Chronic. Supportive care. Continue Namenda and Aricept (9) Hypertension: Plan: Stable. Treated with lisinopril and metoprolol Plan To be determined. Awaiting OT and PT evaluations Admission and Anticipated Discharge Date Admission Date: February 05, 2023 Subjective The patient is afebrile, alert, oriented to name and place. No acute distress. Cultures remain negative to date. COVID testing remains positive but he had COVID last month. OT and PT have been requested. We will continue with daily lab. He remains on room air Review of Systems Review of Systems: Constitutional-no fever or chills. Alert and oriented to name and place. No distress ENT-no blurred vision, no double vision, no epistaxis, no sore throat Respiratory-no cough, no wheezing, no shortness of breath Cardiac-no palpitations, no chest pain, no syncope GI-no nausea, vomiting, diarrhea, melena, hematochezia -no urinary retention, no urinary incontinence, no dysuria, no hematuria Musculoskeletal-no joint pain, no muscle tenderness Skin-no bruising, no rashes, no pruritus Neuro-no isolated weakness, no paresthesia, no weakness Psych-no depression, no anxiety Physical Exam Physical Exam: General-alert and oriented x2, no chills. Intermittent low-grade fever HEENT-head atraumatic and normocephalic, pupils equal and reactive to light, extraocular muscles intact Neck-no lymphadenopathy or thyromegaly, trachea midline Chest-clear to auscultation percussion. No rales wheezing or rhonchi Cardiac-regular rate and rhythm, normal S1 and S2 Abdomen-normal bowel sounds, nontender, no hepatosplenomegaly Extremities-no cyanosis, clubbing, or edema Neuro-cranial nerves II through XII intact, motor and sensory function within normal limits, strength symmetrical with generalized weakness , no focal deficits Psych-normal affect, normal mood Results & Data Results & Data Vital Signs (Past 12 Hours) Vital Signs Temp Pulse Resp BP Pulse Ox O2 Del Method 02/06/23 07:40 37.9 C H 79 18 150/77 H 93 Room Air 02/06/23 03:30 37.3 C 56 L 18 142/83 H 95 Room Air Laboratory Results 02/06/23 06:32 02/06/23 06:32 PG Care Time/CCT Total # of Minutes Spent Total Time Spent with Patient: Total time spent is greater than 50% in coordination of care (as documented) at patient's floor/unit and/or counseling patient: Coding Level of Care Code 07961 SUB INP/OBS CARE 3/50MIN Diagnoses Acute confusion R41.0 Weakness R53.1 COVID-19 U07.1 Ambulatory dysfunction R26.2 Paroxysmal atrial fibrillation I48.0 Dyslipidemia E78.5 Diabetes type 2, controlled E11.9 Dementia F03.90 Hypertension I10
--- NOTE | 2023-02-07 00:04 | Communication Note ---
Date of Service: February 07, 2023 Was notified by nursing about patient's new hematuria and dark stool. Ordered fecal occult test and held pt's Xacaroleto (Afib). Resident Activity Tracking Resident Involvement: Resident Care Provided Care Provided: Adult [facility]
[2023-02-07 06:49] LABS: Basophils # (auto) 0.01 K/uL (0-0.2); Basophils % (auto) 0.2 %; Eosinophils # (auto) 0.04 K/uL (0-0.50); Eosinophils % (auto) 0.9 %; Hematocrit (blood only) 38.6 % (42.0-52.0); Hemoglobin 13.6 g/dl (14.0-18.0); Immature Granulocytes # (auto) 0.01 K/uL (0.01-0.20); Immature Granulocytes % (auto) 0.2 %; Lymphocytes # (auto) 0.75 K/uL (1.2-3.4); Lymphocytes % (auto) 17.5 %; Mean Corpuscular Hemoglobin 33.1 pg (25.0-34.0); Mean Corpuscular Hgb Conc 35.2 g/dL (32.0-36.0); Mean Corpuscular Volume 93.9 fL (80.0-100.0); Mean Platelet Volume 9.2 fL (9.4-12.4); Monocytes # (auto) 0.54 K/uL (0.11-0.59); Monocytes % (auto) 12.6 %; Neutrophils # (auto) 2.93 K/uL (1.40-6.50); Neutrophils % (auto) 68.6 %; Platelet Count 134 K/uL (130-400); RDW Coefficient of Variation 13.7 % (11.5-14.5); RDW Standard Deviation 47.6 fL (36.4-46.3); Red Blood Count 4.11 M/uL (4.70-6.10); White Blood Count 4.28 K/ul (4.8-10.8)
[2023-02-07 07:14] LABS: BUN Creatinine Ratio 16.3 (10-20); Calcium 8.8 mg/dl (8.6-10.3); Est GFR (African American) 86.4 ml/min; Est GFR (Non-African American) 74.5 ml/min; Potassium 3.4 mmol/L (3.5-5.1)
[2023-02-07] MEDS: METOPROLOL SUCC 25MG EXT REL TAB PO SCH (08:40)
[2023-02-07] MEDS: ASPIRIN 81 MG ECTAB PO SCH (08:43)
[2023-02-07] MEDS: DONEPEZIL HCL 10 MG TAB PO SCH (08:44)
[2023-02-07] MEDS: MEMANTINE HCL 10 MG TAB PO SCH ×2 (08:44→19:14)
[2023-02-07] MEDS: PANTOprazole 40 MG TAB PO SCH (08:45)
[2023-02-07] MEDS: lisinopril 20 MG TAB PO SCH (08:46)
[2023-02-07] MEDS: LIDOCAINE 5% 1 PATCH TD SCH (08:47)
[2023-02-07] MEDS: ROSUVASTATIN CALCIUM 20 MG TAB PO SCH (08:47)
[2023-02-07] MEDS: INSULIN ASPART PER UNIT CHARGE SC SCH ×4 (09:59→19:48)
[2023-02-07] MEDS: LANTUS PER UNIT CHARGE SQ SCH ×2 (10:00→20:52)
[2023-02-07] MEDS ORDERED: POTASSIUM CHLORIDE CRTAB 20 MEQ TABCR PO STA (11:09)
--- NOTE | 2023-02-07 14:26 | Hospitalist Progress Note ---
Date of Service February 07, 2023 Assessment & Plan (1) Acute confusion: Plan: Metabolic encephalopathy present on admission. Now resolved. Supportive care. He may have had a viral infection. No bacterial infection seen on cultures. (2) Weakness: Plan: Supportive care. OT and PT assessments ordered. Improving (3) COVID-19: Plan: Patient positive for COVID on 12/24/2022 on NAAT test. He tested positive again on admission with PCR test. It is possible he could have omicron variant given the patient's new fever, confusion, ongoing cough and generalized weakness. Stable respiratory status. No indication at this time for IV dexamethasone or remdesivir therapy (4) Ambulatory dysfunction: Plan: Patient is ambulatory at baseline. Having a difficult time walking on admission. Continue PT/OT. Fall precautions (5) Paroxysmal atrial fibrillation: Plan: Rate controlled. On anticoagulation with Xarelto. Continue metoprolol. Telemetry (6) Dyslipidemia: Plan: Chronic. Stable. Continue Crestor (7) Diabetes type 2, controlled: Plan: Last hemoglobin A1c = 6.7 on 12/12/2022. Patient is on Tresiba and insulin aspart at home. Lantus therapy while hospitalized. Sliding scale coverage. ADA diet (8) Dementia: Plan: Chronic. Supportive care. Continue Namenda and Aricept (9) Hypertension: Plan: Stable. Treated with lisinopril and metoprolol Plan Anticipate SNF discharge when arrangements are finalized Admission and Anticipated Discharge Date Admission Date: February 07, 2023 Subjective Alert and oriented. No new problems. He is on room air. Potassium slightly low today at 3.4. Will replace p.o. Mental status appears to be back to baseline Review of Systems 2 Review of Systems: Constitutional-no fever or chills ENT-no blurred vision, no double vision, no epistaxis, no sore throat Respiratory-no cough, no wheezing, no shortness of breath Cardiac-no palpitations, no chest pain, no syncope GI-no nausea, vomiting, diarrhea, melena, hematochezia -no urinary retention, no urinary incontinence, no dysuria, no hematuria Musculoskeletal-no joint pain, no muscle tenderness Skin-no bruising, no rashes, no pruritus Neuro-no isolated weakness, no paresthesia, no weakness Psych-no depression, no anxiety Physical Exam Physical Exam: General-alert and oriented x2, no chills. Intermittent low-grade fever HEENT-head atraumatic and normocephalic, pupils equal and reactive to light, extraocular muscles intact Neck-no lymphadenopathy or thyromegaly, trachea midline Chest-clear to auscultation percussion. No rales wheezing or rhonchi Cardiac-regular rate and rhythm, normal S1 and S2 Abdomen-normal bowel sounds, nontender, no hepatosplenomegaly Extremities-no cyanosis, clubbing, or edema Neuro-cranial nerves II through XII intact, motor and sensory function within normal limits, strength symmetrical with generalized weakness , no focal deficits Psych-normal affect, normal mood Results & Data Results & Data Vital Signs (Past 12 Hours) Vital Signs Temp Pulse Resp BP Pulse Ox O2 Del Method 02/07/23 11:46 36.5 C 64 18 122/67 92 Room Air 02/07/23 07:40 36.4 C L 60 18 126/83 91 Room Air Laboratory Results 02/07/23 06:06 02/07/23 06:06 PG Care Time/CCT Total # of Minutes Spent Total Time Spent with Patient: Total time spent is greater than 50% in coordination of care (as documented) at patient's floor/unit and/or counseling patient: Coding Level of Care Code 54805 SUB INP/OBS CARE 2/35MIN Diagnoses Acute confusion R41.0 Weakness R53.1 COVID-19 U07.1 Ambulatory dysfunction R26.2 Paroxysmal atrial fibrillation I48.0 Dyslipidemia E78.5 Diabetes type 2, controlled E11.9 Dementia F03.90 Hypertension I10
[2023-02-07] MEDS: RIVAROXABAN 20 MG TAB PO SCH (18:00)
[2023-02-08 05:56] LABS: Basophils # (auto) 0.02 K/uL (0-0.2); Basophils % (auto) 0.5 %; Eosinophils # (auto) 0.09 K/uL (0-0.50); Eosinophils % (auto) 2.3 %; Hematocrit (blood only) 35.8 % (42.0-52.0); Hemoglobin 12.6 g/dl (14.0-18.0); Immature Granulocytes # (auto) 0.01 K/uL (0.01-0.20); Immature Granulocytes % (auto) 0.3 %; Lymphocytes # (auto) 0.83 K/uL (1.2-3.4); Lymphocytes % (auto) 21.3 %; Mean Corpuscular Hemoglobin 32.4 pg (25.0-34.0); Mean Corpuscular Hgb Conc 35.2 g/dL (32.0-36.0); Mean Platelet Volume 9.4 fL (9.4-12.4); Monocytes # (auto) 0.42 K/uL (0.11-0.59); Monocytes % (auto) 10.8 %; Neutrophils # (auto) 2.52 K/uL (1.40-6.50); Neutrophils % (auto) 64.8 %; Platelet Count 143 K/uL (130-400); RDW Coefficient of Variation 13.6 % (11.5-14.5); RDW Standard Deviation 46.3 fL (36.4-46.3); Red Blood Count 3.89 M/uL (4.70-6.10); White Blood Count 3.89 K/ul (4.8-10.8)
[2023-02-08 06:14] LABS: BUN Creatinine Ratio 21.3 (10-20); Blood Urea Nitrogen 20 mg/dl (6-23); Calcium 8.7 mg/dl (8.6-10.3); Carbon Dioxide 24 mmol/L (21-32); Chloride 103 mmol/L (98-107); Creatinine Clr Calc Pharmacy 61.7 ml/min; Est GFR (African American) 84.2 ml/min; Est GFR (Non-African American) 72.6 ml/min; Glucose 99 mg/dl (70-99(Fasting))
[2023-02-08] MEDS: lisinopril 20 MG TAB PO SCH (08:24)
[2023-02-08] MEDS: ASPIRIN 81 MG ECTAB PO SCH (08:24)
[2023-02-08] MEDS: PANTOprazole 40 MG TAB PO SCH (08:24)
[2023-02-08] MEDS: DONEPEZIL HCL 10 MG TAB PO SCH (08:24)
[2023-02-08] MEDS: LIDOCAINE 5% 1 PATCH TD SCH (08:25)
[2023-02-08] MEDS: METOPROLOL SUCC 25MG EXT REL TAB PO SCH (08:25)
[2023-02-08] MEDS: ROSUVASTATIN CALCIUM 20 MG TAB PO SCH (08:25)
[2023-02-08] MEDS: MEMANTINE HCL 10 MG TAB PO SCH ×2 (08:25→20:29)
[2023-02-08] MEDS: INSULIN ASPART PER UNIT CHARGE SC SCH ×4 (08:31→20:35)
[2023-02-08] MEDS: LANTUS PER UNIT CHARGE SQ SCH ×2 (08:32→20:36)
[2023-02-08 08:52] LABS: Potassium 3.8 mmol/L (3.5-5.1)
--- NOTE | 2023-02-08 13:00 | Hospitalist Progress Note ---
Date of Service February 08, 2023 Assessment & Plan (1) Acute confusion: Plan: Metabolic encephalopathy present on admission. Now resolved. Supportive care. He may have had a viral infection. No bacterial infection seen on cultures. (2) Weakness: Plan: Supportive care. Continue OT and PT . Improved to back to baseline (3) COVID-19: Plan: Patient positive for COVID on 12/24/2022 on NAAT test. He tested positive again on admission with PCR test. It is possible he could have omicron variant given the patient's new fever, confusion, ongoing cough and generalized weakness. Stable respiratory status. No indication at this time for IV dexamethasone or remdesivir therapy (4) Ambulatory dysfunction: Plan: Patient is ambulatory at baseline. Having a difficult time walking on admission. Continue PT/OT. Fall precautions. He is now back to baseline (5) Paroxysmal atrial fibrillation: Plan: Rate controlled. On anticoagulation with Xarelto. Continue metoprolol. Telemetry (6) Dyslipidemia: Plan: Chronic. Stable. Continue Crestor (7) Diabetes type 2, controlled: Plan: Last hemoglobin A1c = 6.7 on 12/12/2022. Patient is on Tresiba and insulin aspart at home. Lantus therapy while hospitalized. Sliding scale coverage. ADA diet (8) Dementia: Plan: Chronic. Supportive care. Continue Namenda and Aricept (9) Hypertension: Plan: Stable. Treated with lisinopril and metoprolol Plan Anticipate SNF discharge when arrangements are finalized . Probably back to [facility] tomorrFebruary 09 Admission and Anticipated Discharge Date Admission Date: February 07, 2023 Subjective Alert and oriented. No new problems. Potassium corrected to 3.8. He is on room air. Anticipate discharge back to [facility] tomorrowFebruary 09 Review of Systems Review of Systems: Constitutional-no fever or chills ENT-no blurred vision, no double vision, no epistaxis, no sore throat Respiratory-no cough, no wheezing, no shortness of breath Cardiac-no palpitations, no chest pain, no syncope GI-no nausea, vomiting, diarrhea, melena, hematochezia -no urinary retention, no urinary incontinence, no dysuria, no hematuria Musculoskeletal-no joint pain, no muscle tenderness Skin-no bruising, no rashes, no pruritus Neuro-no isolated weakness, no paresthesia, no weakness Psych-no depression, no anxiety Physical Exam Physical Exam: General-alert and oriented x2, no chills. Intermittent low-grade fever HEENT-head atraumatic and normocephalic, pupils equal and reactive to light, extraocular muscles intact Neck-no lymphadenopathy or thyromegaly, trachea midline Chest-clear to auscultation percussion. No rales wheezing or rhonchi Cardiac-regular rate and rhythm, normal S1 and S2 Abdomen-normal bowel sounds, nontender, no hepatosplenomegaly Extremities-no cyanosis, clubbing, or edema Neuro-cranial nerves II through XII intact, motor and sensory function within normal limits, strength symmetrical with generalized weakness , no focal deficits Psych-normal affect, normal mood Results & Data Results & Data Vital Signs (Past 12 Hours) Vital Signs Temp Pulse Pulse Resp BP Pulse Ox O2 Del Method 02/08/23 07:45 36.6 C 67 19 141/81 H 93 Room Air 02/08/23 11:32 36.7 C 62 19 139/88 94 Room Air 02/08/23 05:32 68 Laboratory Results 02/08/23 05:36 02/08/23 08:20 PG Care Time/CCT Total # of Minutes Spent Total Time Spent with Patient: Total time spent is greater than 50% in coordination of care (as documented) at patient's floor/unit and/or counseling patient: Coding Level of Care Code 43359 SUB INP/OBS CARE 2/35MIN Diagnoses Acute confusion R41.0 Weakness R53.1 COVID-19 U07.1 Ambulatory dysfunction R26.2 Paroxysmal atrial fibrillation I48.0 Dyslipidemia E78.5 Diabetes type 2, controlled E11.9 Dementia F03.90 Hypertension I10
[2023-02-08] MEDS: RIVAROXABAN 20 MG TAB PO SCH (17:00)
[2023-02-09 06:53] LABS: Basophils # (auto) 0.02 K/uL (0-0.2); Basophils % (auto) 0.6 %; Eosinophils # (auto) 0.11 K/uL (0-0.50); Eosinophils % (auto) 3.4 %; Immature Granulocytes # (auto) 0.01 K/uL (0.01-0.20); Immature Granulocytes % (auto) 0.3 %; Lymphocytes % (auto) 24.8 %; Mean Corpuscular Hemoglobin 32.6 pg (25.0-34.0); Mean Corpuscular Hgb Conc 34.3 g/dL (32.0-36.0); Mean Corpuscular Volume 95.1 fL (80.0-100.0); Mean Platelet Volume 9.3 fL (9.4-12.4); Monocytes # (auto) 0.31 K/uL (0.11-0.59); Monocytes % (auto) 9.6 %; Neutrophils # (auto) 1.98 K/uL (1.40-6.50); Neutrophils % (auto) 61.3 %; Platelet Count 144 K/uL (130-400); RDW Coefficient of Variation 13.5 % (11.5-14.5); RDW Standard Deviation 47.5 fL (36.4-46.3); Red Blood Count 3.68 M/uL (4.70-6.10); White Blood Count 3.23 K/ul (4.8-10.8)
[2023-02-09 07:25] LABS: BUN Creatinine Ratio 23.2 (10-20); Calcium 8.8 mg/dl (8.6-10.3); Creatinine Clr Calc Pharmacy 57.3 ml/min; Est GFR (Non-African American) 68.2 ml/min; Potassium 3.8 mmol/L (3.5-5.1)
[2023-02-09] MEDS: INSULIN ASPART PER UNIT CHARGE SC SCH (07:38)
[2023-02-09] MEDS: ASPIRIN 81 MG ECTAB PO SCH (07:57)
[2023-02-09] MEDS: DONEPEZIL HCL 10 MG TAB PO SCH (07:57)
[2023-02-09] MEDS: METOPROLOL SUCC 25MG EXT REL TAB PO SCH (07:58)
[2023-02-09] MEDS: LIDOCAINE 5% 1 PATCH TD SCH (07:58)
[2023-02-09] MEDS: MEMANTINE HCL 10 MG TAB PO SCH (07:58)
[2023-02-09] MEDS: lisinopril 20 MG TAB PO SCH (07:58)
[2023-02-09] MEDS: PANTOprazole 40 MG TAB PO SCH (07:59)
[2023-02-09] MEDS: ROSUVASTATIN CALCIUM 20 MG TAB PO SCH (07:59)
[2023-02-09] MEDS: LANTUS PER UNIT CHARGE SQ SCH (08:56)
[2023-02-09] MEDS ORDERED: INSULIN ASPART PER UNIT CHARGE SC SCH (11:30)
--- NOTE | 2023-02-09 14:44 | Discharge Summary ---
Date of Service February 09, 2023 Admission HPI Per Admitting Provider Terry Quach is an 87-year-old male with history of diabetes, coronary artery disease, paroxysmal atrial fibrillation and dementia presenting from [facility] after a fall and confusion. Patient also febrile to 101 today. Patient reportedly fell to the ground off his bed earlier today. He may have hit his head. Nursing staff reports he was not on the floor for prolonged period of time however, patient reports he was on the floor for greater than 10 hours (unlikely in a staff personal-jail?) Patient is slightly confused and reports a cough productive for yellow sputum. He has no further complaints at this time. He did have COVID on December 24 (tested positive on NAAT test). In the ER he is afebrile, hemodynamically stable, no acute distress. Saturating 93% on room air. Patient unable to ambulate in the ER. Is not able to return to [facility] in his current state Principal Diagnosis Febrile illness, fall, acute metabolic encephalopathy, COVID-19 Discharge Exam Constitutional WD/WN, vitals as above Eyes + anicteric sclerae Respiratory normal respiratory effort, lungs clear to auscultation Cardiovascular RRR, no murmur, no edema Neurologic not confused Psychiatric Orientation: alert, oriented to person, oriented to place and cooperative Discharge Data Allergies Allergy/AdvReac Type Severity Reaction Status Date / Time Sulfa (Sulfonamide Allergy Unknown ON WELLFLEET Verified 02/05/23 18:10 Antibiotics) MED LIST Consultations 02/05/23 21:20 ED Decision to Admit Stat Ordered Studies 02/05/23 17:11 CT head/brain wo con Stat Hospital Course (1) Acute confusion: Metabolic encephalopathy present on admission. Now resolved. Supportive care. He may have had a viral infection. No bacterial infection seen on cultures. No dehydration or renal failure Known to me from previous and is at his baseline mentation (2) Weakness: Supportive care. Continue OT and PT . Improved to back to baseline (3) COVID-19: Patient positive for COVID on 12/24/2022 on NAAT test. He tested positive again on admission with PCR test. It is possible he could have omicron variant given the patient's new fever, confusion, ongoing cough and generalized weakness. Stable respiratory status, no hypoxia, lungs are clear. No indication at this time for IV dexamethasone or remdesivir therapy (4) Ambulatory dysfunction: Patient is ambulatory at baseline. Having a difficult time walking on admission. Continue PT/OT. Fall precautions. He is now back to baseline Pelvic xray and CT head negative (5) Paroxysmal atrial fibrillation: Rate controlled, converted back to sinus on 02/08. On anticoagulation with Xarelto. Continue metoprolol. (6) Dyslipidemia: Chronic. Stable. Continue Crestor (7) Diabetes type 2, controlled: Last hemoglobin A1c = 6.7 on 12/12/2022. Patient is on Tresiba and insulin aspart at home. Lantus therapy while hospitalized. Sliding scale coverage. ADA diet (8) Dementia: Chronic, mild. Supportive care. Continue Namenda and Aricept (9) Hypertension: Stable. Treated with lisinopril and metoprolol Plan Dispo-medically stable for dc to [facility] today Spoke with his son, Carlos, on the phone on day of discharge Total Time Total Time Spent Total Time Spent (In Minutes): 35 min Discharge Plan Discharge Items Patient Disposition: Personal Group Home Reason For Visit: CONFUSION, FEVER, AMBULATORY DYSFUNCTION Discharge Diagnosis: Acute metabolic encephalopathy, COVID-19, Febrile illness Condition on Discharge: Good Activity: As commented below Lifting: Gradually increase as tolerated Bathing: No limitations Exercise/Sports: Gradually increase as tolerated Non-emergency contact: Primary Care Provider Call non-emergency contact if: you have any medication questions and your symptoms worsen Follow-up/Referrals: Loraine Schoolcraft [Primary Care Provider] - (Follow up within 1 week.) Diet: Carb Consistent or DM2 and Heart Healthy Addtl Attending Provider Instructions: You were admitted with weakness and confusion from a viral febrile illness. You tested positive for COVID-19 again, but it is not entirely clear that you had a repeat COVID infection vs just another viral illness. You had improvement and were back to your normal self by the time of discharge. Pending Studies at Discharge: No Stand-Alone Forms: My [employer], Smoking Cessation Skilled Items Patient informed of condition?: Yes DNR: No Discharge Level of Care: Other Communicable Disease: Yes Discharge Prognosis: Improving Lines: None Urinary Catheter: No Medications and DC Order Prescriptions: Continued donepezil 10 mg tablet 10 mg PO QAM Qty: 90 3RF rosuvastatin 40 mg tablet 40 mg PO QAM Qty: 90 3RF lisinopril 20 mg tablet 20 mg PO DAILY Qty: 90 3RF nitroglycerin 0.4 mg tablet, sublingual 0.4 mg SL DIRECTED PRN (Reason: Chest Pain) Qty: 20 1RF Rx Instructions: dissolve 1 tablet under tongue every 5 min..max 3 tabs as needed for chest pain..after 2nd dose call 911 (DME) lancets [VivoTouch Delica Lancets] 33 gauge misc See Dose Instructions .ROUTE .MEDSUPPLY Qty: 120 5RF Rx Instructions: Test blood sugars 4 times a day (DME) pen needle, diabetic [BD Ultra-Fine Ros Pen Needle] 32 gauge x 5/32" needle See Rx Instructions .ROUTE .MEDSUPPLY Qty: 400 1RF Rx Instructions: Use to inject insulin 4x per day (DME) VivoTouch Verio test strips Strip See Dose Instructions .ROUTE .MEDSUPPLY Qty: 400 3RF Rx Instructions: Test blood sugars 4 times a day: fasting, before lunch, before supper, before bed memantine 10 mg tablet 10 mg PO BID 90 Days Qty: 180 2RF metoprolol succinate 25 mg tablet extended release 24 hr 12.5 mg PO QAM Qty: 90 3RF (DME) OneTouch Verio High Control Solution See Rx Instructions .Route Qty: 1 0RF Rx Instructions: As directed ascorbate calcium (vitamin C) 500 mg tablet 500 mg PO QAM vitamin B complex Capsule 1 cap PO QAM cholecalciferol (vitamin D3) 1,000 unit capsule 1,000 units PO QAM aspirin [Adult Low Dose Aspirin] 81 mg tablet,delayed release (DR/EC) 81 mg PO QAM insulin aspart U-100 [Novolog FlexPen U-100 Insulin] 100 unit/mL (3 mL) insulin pen See Rx Instructions .ROUTE .COMPLEX Rx Instructions: TAKES 13 UNITS W/BREAKFAST & LUNCH, 15 UNITS W/DINNER. dutasteride 0.5 mg capsule 0.5 mg PO QAM insulin degludec [Tresiba FlexTouch U-100] 100 unit/mL (3 mL) insulin pen 25 unit SUBCUT QAM Xarelto 20 mg tablet 20 mg PO QPM Rx Instructions: must administer with evening meal omeprazole 20 mg capsule,delayed release(DR/EC) 20 mg PO QAM Rx Instructions: TAKE 1 CAPSULE BY MOUTH EVERY DAY acetaminophen [Tylenol] 325 mg Tablet 650 mg PO Q8H PRN (Reason: Pain) lidocaine 4 % Adhesive Patch,Medicated 1 patch TOPICAL DAILY PRN (Reason: Pain) Rx Instructions: APPLY FOR 12 HOURS, THEN REMOVE. Discharge Orders: Discharge Order (Routine); Ordered 02/09/23 Ordered By: Aishwarya Padron Admission Data Admit Date/Time: 02/07/23 11:08 Attending Provider: Aishwarya Padron Admit Provider: Marce Stringer Primary Care Provider: Loraine branchSchoolcraft Other Providers: Chencho Bradshaw at [place] ; Marce Stringer Coding Level of Care Code 12018 INP/OBS DISCH >30 MIN Diagnoses Acute confusion R41.0 Weakness R53.1 COVID-19 U07.1 Ambulatory dysfunction R26.2 Paroxysmal atrial fibrillation I48.0 Dyslipidemia E78.5 Diabetes type 2, controlled E11.9 Dementia F03.90 Hypertension I10
[2023-02-09] MEDS ORDERED: LANTUS PER UNIT CHARGE SQ ONE (17:00)
[2023-02-09] MEDS ORDERED: INSULIN ASPART PER UNIT CHARGE SC ONE (17:00)
[2023-02-09] MEDS ORDERED: LANTUS PER UNIT CHARGE SQ SCH (21:00)
[2023-02-10] MEDS ORDERED: CHOLECALCIFEROL 1,000 UNITS 25 MCG TAB PO SCH (09:00)
[2023-02-10] MEDS ORDERED: VITAMIN B COMPLEX TAB PO SCH (09:00)
== END 2023-02-09 17:01 | disposition home or self-care (01) | DRG 865 ==
LOC: 2S 16:58 → ED 16:58 → SUATTDRO 22:04 → 2S 22:54 → SUATTDRO 02-07 11:08 → 3W 02-09 12:18

== ENCOUNTER 2024-06-24 23:58 | Observation (INO) ==
--- NOTE | 2024-06-25 00:28 | Emergency Department Note ---
Impression & Plan Acute alteration in mental status admit to the [facility] ED Provider Note NAME: JANAE SOW AGE: 89 SEX: Male INFORMANT: EMS ED PROVIDER(S): Anna Aaorn DO CHIEF COMPLAINT: unresponsive PLAN: Disposition: admit to the [facility] MEDICAL DECISION MAKING: this is an 89-year-old male patient from [facility] who was found on the floor in his room unresponsive. Last known well was 75 minutes prior to the time of call. Patient had lost control of his urine.EMS described that the patient was somewhat stiff when the attempted to lift him from the floor and he appeared to have a rightward gaze. He was transported here and there was concern for possible stroke versus intracranial hemorrhage so the patient went directly to the CT scanner. Upon returning from radiology, the patient began to see more responsive and answer questions. He appeared to be in a postictal state. CT scan of the brain was negative for intracranial hemorrhage. Laboratory studies were unremarkable. White blood cell count was slightly low which is baseline for the patient. H&H were stable. Renal function was normal. Glucose was normal. Overall, the patient's mental status continued to improve back to his baseline. I believe the patient most likely suffered a seizure and presented in a postictal phase. I discussed the case with the [facility] and they will evaluate for further inpatient care. Care/management discussed with: sales center manager and [facility] Triage Nursing notes: reviewed and agree with them. Vital Signs: reviewed and remarkable for hypertension Additional History obtained from: EMS Differential Diagnosis: intracranial hemorrhage, acute CVA, hypoglycemia, metabolic encephalopathy, seizure, closed head injury Diagnostics, independently interpreted by me: ECG: Normal sinus rhythm at a rate of 60 with a first-degree AV block and left bundle branch block. There is no ST segment elevation or signs of ischemia. There is no ectopy. Cardiac Monitoring: Normal sinus rhythm at a rate of 84 Imaging studies: CT scan of the brain: As per stat rad HPI: 89 year old Male arrives for evaluation of unresponsiveness. the patient was found near his bed at our side. It appears that he may have fallen out of bed or fall and they are to the ground. He was unresponsive for staff. He had urinated himself. They called EMS. PAST MEDICAL HISTORY: See Below, PAST SURGICAL HISTORY: See Below, SOCIAL HISTORY: See Below, HOME MEDICATIONS: See list ALLERGIES: sulfa VITALS: See Below PHYSICAL EXAMINATION: HEENT: Head - normocephalic and atraumatic. Pupils are equal, round, and reactive to light. Extraocular eye muscles are intact and sclera are anicteric. Ears - bilaterally patent canals with noninjected tympanic membranes and no evidence of hemotympanum. Nose - moist nasal mucosa without discharge. Mouth - moist buccal mucosa. Oropharynx is nonerythematous and there is no tonsillar exudate or edema noted. Neck: Supple; no JVD, nuchal rigidity, cervical lymphadenopathy, or auscultated bruits. Heart: Regular rate and rhythm. There is a normal S1 and S2 with no murmurs, clicks, or gallops appreciated. Lungs: Clear to auscultation bilaterally with no wheezes, rales, or rhonchi. Abdomen: Soft, completely nontender, nondistended, with good bowel sounds. There are no palpable pulsatile masses or hepatosplenomegaly. There is no guarding, rigidity, or rebound noted. Extremities: No evidence of cyanosis, clubbing, or edema. There are easily palpable peripheral pulses. Neuro:The patient is Lethargic and will slowly open his eyes to his name. He will follow commands. Muscle strength is equal in all 4 extremities. Neurological status is improving. Emergency department course: The patient was evaluated in room B-1 as he presented with EMS. He was sent directly to the CAT scanner possibility of stroke. When the patient returned from radiology, I was present to continue evaluation of the patient. His mental status was most certainly improving. He would now open his eyes, follow commands, and occasionally answer questions. An order was placed for continuous cardiac monitoring. Patient was in a normal sinus rhythm at a rate of 84. A twelve-lead EKG was obtained. Upon repeat assessment, the patient's mental status had completely improved to the point that he was fully awake and able to answer most questions. He can follow all commands. Muscle strength is 5/5 in all 4 extremities. 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 Bradycardia Elevated prostate specific antigen (PSA) Mild cognitive impairment Dermatitis (Chronic) LBBB (left bundle branch block) (Chronic) Presence of stent in LAD coronary artery (Chronic) Abnormal electrocardiogram (Chronic) Coronary atherosclerosis of [place] coronary vessel (Chronic 06/07/12) 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) Chronic rhinitis (Chronic) Dupuytrens contracture (Chronic) Dysesthesia (Chronic) Elevated PSA (Chronic) Hypertension (Chronic) Laryngopharyngeal reflux (Chronic) Leukopenia (Chronic) Microscopic hematuria (Chronic) Mild aortic regurgitation (Chronic) Mild aortic stenosis (Chronic) Mild mitral regurgitation (Chronic) Nephrolithiasis (Chronic) Vitamin D deficiency (Chronic) Medical History Fall COVID-19 Dementia Closed rib fracture Chronic anticoagulation Weakness Rhabdomyolysis Right rib fracture 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 Enlarged prostate with lower urinary tract symptoms (LUTS) Other and unspecified hyperlipidemia (06/07/12) Hematospermia Myocardial infarction (06/07/12) Nontoxic multinodular goiter PND (post-nasal drip) Sepsis (06/07/12) Pancytopenia (~2000) Left shoulder strain CHI (closed head injury) Surgical History History of tonsillectomy History of cataract surgery History of arthroscopy of knee History of cystoscopy History of colonoscopy Status post Mohs surgery S/P drug eluting coronary stent placement Family History Brother Coronary heart disease Father Angina pectoris Carcinoma of pancreas Myocardial infarction Mother Congestive heart failure Breast cancer Unknown Diabetes Heart disease Hypertension Daughter Breast cancer Denies family history of Ovarian cancer Prostate cancer Colorectal cancer Social History Smoking Status: Never smoker Tobacco Type: Cigarettes Second Hand Exposure: No; Do You Dip or Chew Tobacco: No; Hx Substance Use: No Preferred Language: Honduran Communication Ability: Impaired Communication Ability Comment: Alert and oriented to person, periods of confusion. Visual Impairment: Limited Hearing Ability: Normal Mobile Developer Required: No Beliefs That Will Affect Care: None marital status: / Current Living Situation: Personal Care Facility Current Living Situation Comment: [facility] current occupational status: retired How many Children do You have: 3 Feels Safe at Home: Yes Childhood Exposure to Second-Hand Smoke: No caffeine: Yes Dental Care, Regularly: Yes Physical Activity Frequency: 1-2 Times per Week Seatbelt Use: always Sunscreen Use: Yes Assistive Devices: Cane and Walker Allergies Allergies Allergy/AdvReac Type Severity Reaction Status Date / Time Sulfa (Sulfonamide Allergy Unknown ON HARMONY Verified 06/25/24 01:56 Antibiotics) MED LIST Home Meds Home Medications Medication Instructions Recorded Confirmed cholecalciferol (vitamin D3) 25 1,000 units PO QAM 05/16/19 06/25/24 mcg (1,000 unit) capsule aspirin 81 mg tablet,delayed 81 mg PO QAM 06/20/19 06/25/24 release (Adult Low Dose Aspirin) vitamin B complex 1 cap PO QAM 04/05/20 06/25/24 insulin aspart U-100 100 unit/mL See Rx Instructions .Route .COMPLEX 05/21/22 06/25/24 (3 mL) subcutaneous pen (Novolog FlexPen U-100 Insulin aspart) acetaminophen 325 mg tablet 650 mg PO Q8H PRN Pain 12/24/22 06/25/24 (Tylenol) dutasteride 0.5 mg capsule 0.5 mg PO QAM 02/05/23 06/25/24 furosemide 20 mg tablet 20 mg PO DAILY 06/25/24 06/25/24 nitrofurantoin 100 mg PO BID 06/25/24 06/25/24 monohydrate/macrocrystals 100 mg capsule paroxetine HCl 20 mg tablet 20 mg PO DAILY 06/25/24 06/25/24 Previous Rx's Medication Instructions Recorded lisinopril 20 mg tablet 20 mg PO DAILY #90 tabs 06/05/21 metoprolol succinate 25 mg 12.5 mg (1/2 x 25 mg) PO QAM #90 06/17/21 tablet,extended release 24 hr tabs blood glucose control, high #1 ea 11/12/21 (OneTouch Verio High Control solution) lancets 33 gauge (OneTouch Delica #120 ea 12/11/21 Lancets) OneTouch Verio test strips (blood #400 ea 12/13/21 sugar diagnostic) pen needle, diabetic 32 gauge x #400 ea 12/13/21 5/32" (BD Ultra-Fine Ros Pen Needle) memantine 10 mg tablet 10 mg PO BID 90 days #180 tabs 07/03/22 mirabegron 50 mg tablet,extended 50 mg PO DAILY #30 tabs 05/27/23 release 24 hr (Myrbetriq) methenamine hippurate 1 gram tablet 1 g PO BID #60 tabs 07/01/23 insulin degludec 100 unit/mL (3 25 unit (0.25 mL) subcut QAM #30 mL 03/29/24 mL) subcutaneous pen (Tresiba FlexTouch U-100 insulin) Results & Data (ED) Vital Signs Vital Signs - 24 hr 06/25/24 00:13 06/25/24 00:13 06/25/24 00:14 Temperature Temperature Source Pulse Rate 63 Pulse Rate from SpO2 Sensor Respiratory Rate Respiratory Effort / Characteristics Respiratory Depth Blood Pressure 192/105 H 192/105 H Blood Pressure Mean 122 122 Pulse Oximetry Oxygen Delivery Method Sepsis Recent Fever Within 48 Hours Sepsis New/Unexplained Change in Mental Status Sepsis Action Taken by Nursing 06/25/24 00:22 06/25/24 00:24 06/25/24 00:28 Temperature 36.4 C L Temperature Source Oral Pulse Rate 94 H 66 Pulse Rate from SpO2 Sensor Respiratory Rate 13 19 Respiratory Effort / Characteristics Non-Labored Spontaneous Non-Labored Respiratory Depth Normal Normal Blood Pressure 192/105 H Blood Pressure Mean 134 Pulse Oximetry 94 Oxygen Delivery Method Room Air Room Air Sepsis Recent Fever Within 48 Hours No Sepsis New/Unexplained Change in Mental Status No Sepsis Action Taken by Nursing No Action Required 06/25/24 00:42 06/25/24 00:44 06/25/24 00:54 Temperature Temperature Source Pulse Rate 52 L 63 Pulse Rate from SpO2 Sensor 52 L 56 L Respiratory Rate 16 15 Respiratory Effort / Characteristics Respiratory Depth Blood Pressure 186/91 H Blood Pressure Mean 127 Pulse Oximetry 94 95 Oxygen Delivery Method Sepsis Recent Fever Within 48 Hours Sepsis New/Unexplained Change in Mental Status Sepsis Action Taken by Nursing 06/25/24 00:55 06/25/24 00:55 06/25/24 00:55 Temperature Temperature Source Pulse Rate Pulse Rate from SpO2 Sensor Respiratory Rate Respiratory Effort / Characteristics Respiratory Depth Blood Pressure 176/84 H 176/84 H 176/84 H Blood Pressure Mean 131 131 131 Pulse Oximetry Oxygen Delivery Method Sepsis Recent Fever Within 48 Hours Sepsis New/Unexplained Change in Mental Status Sepsis Action Taken by Nursing 06/25/24 00:55 06/25/24 01:00 06/25/24 01:00 Temperature Temperature Source Pulse Rate 50 L Pulse Rate from SpO2 Sensor 50 L Respiratory Rate 18 Respiratory Effort / Characteristics Respiratory Depth Blood Pressure 176/84 H 170/87 H Blood Pressure Mean 131 107 Pulse Oximetry 94 Oxygen Delivery Method Sepsis Recent Fever Within 48 Hours Sepsis New/Unexplained Change in Mental Status Sepsis Action Taken by Nursing 06/25/24 01:00 06/25/24 01:00 06/25/24 01:18 Temperature Temperature Source Pulse Rate 52 L Pulse Rate from SpO2 Sensor 47 L Respiratory Rate 17 Respiratory Effort / Characteristics Respiratory Depth Blood Pressure 170/87 H 170/87 H Blood Pressure Mean 107 107 Pulse Oximetry 94 Oxygen Delivery Method Sepsis Recent Fever Within 48 Hours Sepsis New/Unexplained Change in Mental Status Sepsis Action Taken by Nursing 06/25/24 01:32 06/25/24 01:42 06/25/24 02:00 Temperature Temperature Source Pulse Rate 52 L Pulse Rate from SpO2 Sensor 50 L Respiratory Rate 13 Respiratory Effort / Characteristics Non-Labored Respiratory Depth Normal Blood Pressure Blood Pressure Mean 109 Pulse Oximetry 96 Oxygen Delivery Method Sepsis Recent Fever Within 48 Hours Sepsis New/Unexplained Change in Mental Status Sepsis Action Taken by Nursing 06/25/24 02:00 06/25/24 02:24 06/25/24 02:30 Temperature Temperature Source Pulse Rate 49 L 52 L Pulse Rate from SpO2 Sensor 46 L 51 L Respiratory Rate 13 15 Respiratory Effort / Characteristics Respiratory Depth Blood Pressure 178/90 H Blood Pressure Mean 101 Pulse Oximetry 96 95 Oxygen Delivery Method Sepsis Recent Fever Within 48 Hours Sepsis New/Unexplained Change in Mental Status Sepsis Action Taken by Nursing 06/25/24 02:30 06/25/24 02:30 06/25/24 02:30 Temperature Temperature Source Pulse Rate Pulse Rate from SpO2 Sensor Respiratory Rate Respiratory Effort / Characteristics Respiratory Depth Blood Pressure 178/90 H 178/90 H 178/90 H Blood Pressure Mean 101 101 101 Pulse Oximetry Oxygen Delivery Method Sepsis Recent Fever Within 48 Hours Sepsis New/Unexplained Change in Mental Status Sepsis Action Taken by Nursing 06/25/24 02:33 Temperature Temperature Source Pulse Rate 51 L Pulse Rate from SpO2 Sensor 53 L Respiratory Rate 12 Respiratory Effort / Characteristics Respiratory Depth Blood Pressure Blood Pressure Mean Pulse Oximetry 95 Oxygen Delivery Method Sepsis Recent Fever Within 48 Hours Sepsis New/Unexplained Change in Mental Status Sepsis Action Taken by Nursing Laboratory Data 06/25/24 00:44 06/25/24 00:44 Lab Results 06/25/24 06/25/24 Range/Units 00:35 00:44 WBC 4.70 L (4.8-10.8) K/ul RBC 4.32 L (4.70-6.10) M/uL Hgb 14.0 (14.0-18.0) g/dl Hct 41.0 L (42.0-52.0) % MCV 94.9 (80.0-100.0) fL MCH 32.4 (25.0-34.0) pg MCHC 34.1 (32.0-36.0) g/dL RDW Std Deviation 46.6 H (36.4-46.3) fL RDW Coeff of [place] 13.2 (11.5-14.5) % Plt Count 147 (130-400) K/uL MPV 9.4 (9.4-12.4) fL Immature Gran % (Auto) 0.4 % Neut % (Auto) 68.5 % Lymph % (Auto) 16.8 % [place] % (Auto) 10.9 % Eos % (Auto) 2.8 % Baso % (Auto) 0.6 % Neut # (Auto) 3.22 (1.40-6.50) K/uL Lymph # (Auto) 0.79 L (1.20-3.40) K/uL [place] # (Auto) 0.51 (0.11-0.59) K/uL Eos # (Auto) 0.13 (0.00-0.50) K/uL Baso # (Auto) 0.03 (0.00-0.20) K/uL Immature Gran # (Auto) 0.02 (0.01-0.20) K/uL PT 10.8 (9.0-12.0) Seconds INR 1.0 (0.9-1.1) APTT 21 (21-31) Seconds PTT Ratio 0.8 Sodium 136 (136-145) mmol/L Potassium 4.0 (3.5-5.1) mmol/L Chloride 104 (98-107) mmol/L Carbon Dioxide 26 (21-32) mmol/L Anion Gap 6 (3-11) BUN 23 (6-23) mg/dl Creatinine 0.85 (0.6-1.4) mg/dl Est Cr Clr Drug Dosing 64.7 ml/min Est GFR ( Amer) 89.5 ml/min Est GFR (Non-Af Amer) 77.3 ml/min BUN/Creatinine Ratio 27.1 H (10-20) Glucose 178 H (70-99(Fasting)) mg/dl Calcium 9.3 (8.6-10.3) mg/dl Magnesium 2.0 (1.7-2.4) mg/dl Total Bilirubin 0.9 (0.2-1.0) mg/dl AST 15 (13-39) U/L ALT 12 (7-52) U/L Alkaline Phosphatase 77 (34-104) U/L Troponin I High Sens 18.4 (0-20) pg/ml Total Protein 6.4 (6.0-8.3) gm/dl Albumin 4.0 (3.4-5.0) gm/dl Globulin 2.4 L (2.5-4.0) gm/dl Albumin/Globulin Ratio 1.7 (0.9-2) Blood Type O Positive Antibody Screen NEGATIVE Imaging Data Radiologist's Impression: Head CT 06/25/24 00:00 CR Exam(s): CT HEAD Without Contrast EXAM: CT Head Without Intravenous Contrast CLINICAL HISTORY: Reason for exam: neuro deficit, acute stroke suspected. TECHNIQUE: Axial computed tomography images of the head/brain without intravenous contrast. Automated exposure control was utilized for the study. A dose lowering technique was utilized adhering to the principles of ALARA. COMPARISON: CT head: 12/16/2023 FINDINGS: Image quality degraded by motion artifact. Brain: Age-related moderately severe cerebral atrophy with widening of the extra-axial spaces and ventricular dilatation. There are areas of decreased attenuation within the white matter tracts, compatible with chronic microvascular disease changes. No acute intracranial hemorrhage, mass-effect or midline shift noted. Ventricles: Moderate ventriculomegaly, question NPH in the appropriate clinical context. Bones/joints: Unremarkable. No acute fracture. Soft tissues: Unremarkable. Sinuses: Unremarkable as visualized. No acute sinusitis. Mastoid air cells: Mild/moderate left mastoiditis.. IMPRESSION: No conclusive acute intracranial abnormality noted. Chronic involutional and ischemic changes of the brain. If there is continued clinical concern, MRI brain recommended. . Communications: Call Doctor Stroke Electronically signed by: Jasper Longoria MD, DABR 06/25/24 02:13 AM Discharge Plan Visit Data Chief Complaint: Unresponsive Stated Complaint: Unresponsive ED Provider: Anna Aaron Discharge Problem: Acute alteration in mental status Patient Disposition: Admitted As Inpatient Forms Stand Alone Forms: [facility] [employer] Prescriptions Prescriptions: No Action lisinopril 20 mg tablet 20 mg PO DAILY Qty: 90 3RF (DME) lancets [OneTouch Delica Lancets] 33 gauge misc See Dose Instructions .ROUTE .MEDSUPPLY Qty: 120 5RF Rx Instructions: Test blood sugars 4 times a day (DME) pen needle, diabetic [BD Ultra-Fine Ros Pen Needle] 32 gauge x 5/32" needle See Rx Instructions .ROUTE .MEDSUPPLY Qty: 400 1RF Rx Instructions: Use to inject insulin 4x per day (DME) OneTouch Verio test strips Strip See Dose Instructions .ROUTE .MEDSUPPLY Qty: 400 3RF Rx Instructions: Test blood sugars 4 times a day: fasting, before lunch, before supper, before bed memantine 10 mg tablet 10 mg PO BID 90 Days Qty: 180 2RF methenamine hippurate 1 gram tablet 1 g PO BID Qty: 60 5RF insulin degludec [Tresiba FlexTouch U-100] 100 unit/mL (3 mL) insulin pen 25 unit SUBCUT QAM Qty: 30 3RF metoprolol succinate 25 mg tablet extended release 24 hr 12.5 mg PO QAM Qty: 90 3RF (DME) OneTouch Verio High Control Solution See Rx Instructions .Route Qty: 1 0RF Rx Instructions: As directed Myrbetriq 50 mg tablet extended release 24 hr 50 mg PO DAILY Qty: 30 2RF vitamin B complex Capsule 1 cap PO QAM cholecalciferol (vitamin D3) 1,000 unit capsule 1,000 units PO QAM aspirin [Adult Low Dose Aspirin] 81 mg tablet,delayed release (DR/EC) 81 mg PO QAM insulin aspart U-100 [Novolog FlexPen U-100 Insulin] 100 unit/mL (3 mL) insulin pen See Rx Instructions .ROUTE .COMPLEX Rx Instructions: TAKES 13 UNITS W/BREAKFAST & LUNCH, 15 UNITS W/DINNER. dutasteride 0.5 mg capsule 0.5 mg PO QAM acetaminophen [Tylenol] 325 mg Tablet 650 mg PO Q8H PRN (Reason: Pain) furosemide 20 mg tablet 20 mg PO DAILY Rx Instructions: take for 5 days with last dose 06/29/24 paroxetine HCl 20 mg tablet 20 mg PO DAILY nitrofurantoin monohyd/m-cryst 100 mg capsule 100 mg PO BID Rx Instructions: take for 5 days with last dose ending 06/29/24 Referrals Referrals: Loraine branchBrinson [Primary Care Provider] -
[2024-06-25 00:55] LABS: Basophils # (auto) 0.03 K/uL (0.00-0.20); Basophils % (auto) 0.6 %; Eosinophils # (auto) 0.13 K/uL (0.00-0.50); Eosinophils % (auto) 2.8 %; Immature Granulocytes # (auto) 0.02 K/uL (0.01-0.20); Immature Granulocytes % (auto) 0.4 %; Lymphocytes # (auto) 0.79 K/uL (1.20-3.40); Lymphocytes % (auto) 16.8 %; Mean Corpuscular Hemoglobin 32.4 pg (25.0-34.0); Mean Corpuscular Hgb Conc 34.1 g/dL (32.0-36.0); Mean Corpuscular Volume 94.9 fL (80.0-100.0); Mean Platelet Volume 9.4 fL (9.4-12.4); Monocytes # (auto) 0.51 K/uL (0.11-0.59); Monocytes % (auto) 10.9 %; Neutrophils # (auto) 3.22 K/uL (1.40-6.50); Neutrophils % (auto) 68.5 %; Platelet Count 147 K/uL (130-400); RDW Coefficient of Variation 13.2 % (11.5-14.5); RDW Standard Deviation 46.6 fL (36.4-46.3); Red Blood Count 4.32 M/uL (4.70-6.10)
[2024-06-25 01:13] LABS: Albumin Globulin Ratio 1.7 (0.9-2); BUN Creatinine Ratio 27.1 (10-20); Bilirubin,Total 0.9 mg/dl (0.2-1.0); Calcium 9.3 mg/dl (8.6-10.3); Creatinine Clr Calc Pharmacy 64.7 ml/min; Est GFR (African American) 89.5 ml/min; Est GFR (Non-African American) 77.3 ml/min; Globulin 2.4 gm/dl (2.5-4.0); Total Protein 6.4 gm/dl (6.0-8.3)
[2024-06-25 01:19] LABS: Troponin I High Sensitivity 18.4 pg/ml (0-20)
[2024-06-25 01:26] LABS: Partial Thromboplastin Ratio 0.8; Partial Thromboplastin Time 21 Seconds (21-31); Prothrombin Time 10.8 Seconds (9.0-12.0)
--- NOTE | 2024-06-25 02:14 | CT Scan Report ---
Exam(s): CT HEAD Without Contrast EXAM: CT Head Without Intravenous Contrast CLINICAL HISTORY: Reason for exam: neuro deficit, acute stroke suspected. TECHNIQUE: Axial computed tomography images of the head/brain without intravenous contrast. Automated exposure control was utilized for the study. A dose lowering technique was utilized adhering to the principles of ALARA. COMPARISON: CT head: 12/16/2023 FINDINGS: Image quality degraded by motion artifact. Brain: Age-related moderately severe cerebral atrophy with widening of the extra-axial spaces and ventricular dilatation. There are areas of decreased attenuation within the white matter tracts, compatible with chronic microvascular disease changes. No acute intracranial hemorrhage, mass-effect or midline shift noted. Ventricles: Moderate ventriculomegaly, question NPH in the appropriate clinical context. Bones/joints: Unremarkable. No acute fracture. Soft tissues: Unremarkable. Sinuses: Unremarkable as visualized. No acute sinusitis. Mastoid air cells: Mild/moderate left mastoiditis.. IMPRESSION: No conclusive acute intracranial abnormality noted. Chronic involutional and ischemic changes of the brain. If there is continued clinical concern, MRI brain recommended. . Communications: Call Doctor Stroke Electronically signed by: Jasper Longoria MD, DABR 06/25/24 02:13 AM
--- NOTE | 2024-06-25 02:47 | History & Physical Report ---
Date of Service June 25, 2024 Assessment & Plan (1) Unresponsive episode: (2) Acute alteration in mental status: (3) Confusion: (4) Nitrofurantoin adverse reaction: (5) Mild cognitive impairment: (6) Dementia: (7) Paroxysmal atrial fibrillation: (8) BPH NOS w ur obs/LUTS: (9) Dyslipidemia: (10) Diabetes type 2, controlled: (11) Presence of stent in LAD coronary artery: (12) Coronary atherosclerosis of [place] coronary vessel: (13) Hypertension: Plan Unresponsive episode/confusion/mild cognitive impairment due to dementia/adverse drug reaction to nitrofurantoin/possible seizure- The patient will be admitted to telemetry for serial cardiac enzymes, serial EKG's, cardiac rhythm monitoring and a 2-D echocardiogram with Dopplers. Unresponsive episode, that resolved while in the CT scanner, and the patient is reportedly back to his baseline level of dementia and intermittent episodes of confusion. Continue usual medications of aspirin, vitamin D, memantine, paroxetine Hold nitrofurantoin, as this may be contributing to or significant responsible for current symptoms Follow urine cultures and blood cultures Order MRI of brain Order EEG Consult neurology CAD/LAD stent/hypertension/mild aortic stenosis and regurgitation- Continue aspirin, lisinopril Hold metoprolol due to bradycardia Hold furosemide Hydralazine 10 mg IV every 4 hours as needed for systolic blood pressure greater than 160 Diabetes mellitus- Continue insulin glargine 25 units subcu [address] negative for NovoLog SSI Hold standing order for NovoLog with meals BPH with LUTS/bladder spasm- Continue dutasteride, mirabegron History of Present Illness Chief Complaint: The patient is brought to the emergency department due to an acute alteration of mental status, upon arrival to the emergency department he was unresponsive, and was rushed to the CT scanner, where CT head was negative for acute process Primary Care Provider: [facility] The patient is a 89-year-old male resident of [facility], with a past medical history including lower extremity edema, paroxysmal atrial fibrillation, dyslipidemia, BPH with LUTS, diabetes mellitus, dementia, diabetic nephropathy, diabetic peripheral neuropathy, LBBB, presence of LAD stent, chronic prostatitis, mild aortic stenosis, mild aortic regurgitation, and laryngeal pha ryngeal reflux. He presents to the ED with an unresponsive episode, underwent an emergent CT scan of head without contrast, which showed chronic . He reportedly became more alert while in the CT scanner, and had returned back to his baseline level of dementia by the time of my exam. He did have loss of bladder control, had the odor of urine, and there was concern by the ED for possible seizure, as he appeared possibly post ictal, but no seizure activity had been observed. Allergies Allergy/AdvReac Type Severity Reaction Status Date / Time Sulfa (Sulfonamide Allergy Unknown ON [place] Verified 06/25/24 01:56 Antibiotics) MED LIST Home Medications Medication Instructions Recorded Confirmed Type cholecalciferol (vitamin D3) 25 1,000 units PO QAM 05/16/19 06/25/24 History mcg (1,000 unit) capsule aspirin 81 mg tablet,delayed 81 mg PO QAM 06/20/19 06/25/24 History release (Adult Low Dose Aspirin) vitamin B complex 1 cap PO QAM 04/05/20 06/25/24 History lisinopril 20 mg tablet 20 mg PO DAILY #90 tabs 06/05/21 06/25/24 Rx metoprolol succinate 25 mg 12.5 mg (1/2 x 25 mg) PO QAM #90 06/17/21 06/25/24 Rx tablet,extended release 24 hr tabs blood glucose control, high #1 ea 11/12/21 04/19/24 Rx (OneTouch Verio High Control solution) lancets 33 gauge (OneTouch Delica #120 ea 12/11/21 04/19/24 Rx Lancets) OneTouch Verio test strips (blood #400 ea 12/13/21 04/19/24 Rx sugar diagnostic) pen needle, diabetic 32 gauge x #400 ea 12/13/21 04/19/24 Rx 5/32" (BD Ultra-Fine Ros Pen Needle) insulin aspart U-100 100 unit/mL See Rx Instructions .Route .COMPLEX 05/21/22 06/25/24 History (3 mL) subcutaneous pen (Novolog FlexPen U-100 Insulin aspart) memantine 10 mg tablet 10 mg PO BID 90 days #180 tabs 07/03/22 06/25/24 Rx acetaminophen 325 mg tablet 650 mg PO Q8H PRN Pain 12/24/22 06/25/24 History (Tylenol) dutasteride 0.5 mg capsule 0.5 mg PO QAM 02/05/23 06/25/24 History mirabegron 50 mg tablet,extended 50 mg PO DAILY #30 tabs 05/27/23 06/25/24 Rx release 24 hr (Myrbetriq) methenamine hippurate 1 gram tablet 1 g PO BID #60 tabs 07/01/23 06/25/24 Rx insulin degludec 100 unit/mL (3 25 unit (0.25 mL) subcut QAM #30 mL 03/29/24 06/25/24 Rx mL) subcutaneous pen (Tresiba FlexTouch U-100 insulin) furosemide 20 mg tablet 20 mg PO DAILY 06/25/24 06/25/24 History nitrofurantoin 100 mg PO BID 06/25/24 06/25/24 History monohydrate/macrocrystals 100 mg capsule paroxetine HCl 20 mg tablet 20 mg PO DAILY 06/25/24 06/25/24 History Past Med/Surg History Problem List (Updated 06/25/24 @ 04:36 by Paulo Stephenson MD) Unresponsive episode Nitrofurantoin adverse reaction Acute alteration in mental status (Acute) History of gross hematuria Edema of both lower legs Dependent edema Incontinence Acute UTI Paroxysmal atrial fibrillation Dyslipidemia Weakness (Acute) Moderate nonproliferative diabetic retinopathy BPH NOS w ur obs/LUTS Leukopenia Diabetes type 2, controlled Dementia Weakness (Acute) Influenza A (Acute) Confusion (Acute) Balanitis Incomplete emptying of bladder Gait abnormality Albuminuria 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 Bradycardia Elevated prostate specific antigen (PSA) Mild cognitive impairment Dermatitis (Chronic) LBBB (left bundle branch block) (Chronic) Presence of stent in LAD coronary artery (Chronic) Abnormal electrocardiogram (Chronic) Coronary atherosclerosis of [place] coronary vessel (Chronic 06/07/12) 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) Chronic rhinitis (Chronic) Dupuytrens contracture (Chronic) Dysesthesia (Chronic) Elevated PSA (Chronic) Hypertension (Chronic) Laryngopharyngeal reflux (Chronic) Leukopenia (Chronic) Microscopic hematuria (Chronic) Mild aortic regurgitation (Chronic) Mild aortic stenosis (Chronic) Mild mitral regurgitation (Chronic) Nephrolithiasis (Chronic) Vitamin D deficiency (Chronic) Medical History Fall COVID-19 Dementia Closed rib fracture Chronic anticoagulation Weakness Rhabdomyolysis Right rib fracture 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 Enlarged prostate with lower urinary tract symptoms (LUTS) Other and unspecified hyperlipidemia (06/07/12) Hematospermia Myocardial infarction (06/07/12) Nontoxic multinodular goiter PND (post-nasal drip) Sepsis (06/07/12) Pancytopenia (~2000) Left shoulder strain CHI (closed head injury) Surgical History History of tonsillectomy History of cataract surgery History of arthroscopy of knee History of cystoscopy History of colonoscopy Status post Mohs surgery S/P drug eluting coronary stent placement Family History Brother Coronary heart disease Father Angina pectoris Carcinoma of pancreas Myocardial infarction Mother Congestive heart failure Breast cancer Unknown Diabetes Heart disease Hypertension Daughter Breast cancer Denies family history of Ovarian cancer Prostate cancer Colorectal cancer Social History Smoking Status: Never smoker Tobacco Type: Cigarettes Second Hand Exposure: No; Do You Dip or Chew Tobacco: No; Hx Substance Use: No Preferred Language: American Communication Ability: Impaired Communication Ability Comment: Alert and oriented to person, periods of confusion. 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 current occupational status: retired How many Children do You have: 3 Feels Safe at Home: Yes Childhood Exposure to Second-Hand Smoke: No caffeine: Yes Dental Care, Regularly: Yes Physical Activity Frequency: 1-2 Times per Week Seatbelt Use: always Sunscreen Use: Yes Assistive Devices: Cane and Walker Review of Systems Review of Systems: The patient is somewhat confused, and frequently pauses when attempting to answer questions. He denies chest pain, palpitations, shortness of breath, dyspnea on exertion, cough, sore throat, fevers, chills, sweats, nausea, vomiting, diarrhea , constipation, abdominal pain, pelvic pain, blood in urine or stool, dysuria, urinary frequency or urgency, lightheadedness, dizziness, loss of consciousness, rash, abnormal bruising or bleeding, focal weakness, numbness or tingling in arms, generalized arthralgias or myalgias, back or neck pain, or night sweats. The review of systems is otherwise negative other than for that already noted above, and at least 10 systems have been reviewed. Physical Exam Physical Exam: The patient is awake, mildly confused, well developed and well nourished, normocephalic and atraumatic, lying in bed and in no acute distress. HEENT--PERRL, EOMI, mucous membranes and oropharynx dry. Neck--supple. No JVD. No bruits. Thyroid normal, trachea midline, no adenopathy. Heart--normal S1 and S2. No murmurs, rubs or gallops. Lungs--clear bilaterally, no respiratory distress, no accessory muscle use. Abdomen--normal bowel sounds and soft. Nontender. Nondistended, no hernias or masses, no organomegaly. Extremities-- No edema. Dermatologic--normal skin turgor, normal color, no abnormal lymph nodes, no rash. Neurologic--cranial nerves II through XII grossly intact. Rheumatologic--normal range of motion. Psychiatric--mildly confused. Results & Data Results & Data Vital Signs (Past 12 Hours) Vital Signs Temp Pulse Resp BP Pulse Ox O2 Del Method 06/25/24 02:00 49 L 13 96 06/25/24 01:42 52 L 13 96 06/25/24 01:18 52 L 17 94 06/25/24 01:00 170/87 H 06/25/24 01:00 170/87 H 06/25/24 01:00 170/87 H 06/25/24 01:00 50 L 18 94 06/25/24 00:55 176/84 H 06/25/24 00:55 176/84 H 06/25/24 00:55 176/84 H 06/25/24 00:55 176/84 H 06/25/24 00:54 63 15 95 06/25/24 00:44 186/91 H 06/25/24 00:42 52 L 16 94 06/25/24 00:28 Room Air 06/25/24 00:24 66 19 06/25/24 00:22 36.4 C L 94 H 13 192/105 H 94 Room Air 06/25/24 00:14 63 06/25/24 00:13 192/105 H 06/25/24 00:13 192/105 H Laboratory Results Laboratory Results WBC 4.70 K/ul (4.8-10.8) L 06/25/24 00:44 RBC 4.32 M/uL (4.70-6.10) L 06/25/24 00:44 Hgb 14.0 g/dl (14.0-18.0) 06/25/24 00:44 Hct 41.0 % (42.0-52.0) L 06/25/24 00:44 MCV 94.9 fL (80.0-100.0) 06/25/24 00:44 MCH 32.4 pg (25.0-34.0) 06/25/24 00:44 MCHC 34.1 g/dL (32.0-36.0) 06/25/24 00:44 RDW Std Deviation 46.6 fL (36.4-46.3) H 06/25/24 00:44 RDW Coeff of [place] 13.2 % (11.5-14.5) 06/25/24 00:44 Plt Count 147 K/uL (130-400) 06/25/24 00:44 MPV 9.4 fL (9.4-12.4) 06/25/24 00:44 Immature Gran % (Auto) 0.4 % 06/25/24 00:44 Neut % (Auto) 68.5 % 06/25/24 00:44 Lymph % (Auto) 16.8 % 06/25/24 00:44 [place] % (Auto) 10.9 % 06/25/24 00:44 Eos % (Auto) 2.8 % 06/25/24 00:44 Baso % (Auto) 0.6 % 06/25/24 00:44 Neut # (Auto) 3.22 K/uL (1.40-6.50) 06/25/24 00:44 Lymph # (Auto) 0.79 K/uL (1.20-3.40) L 06/25/24 00:44 [place] # (Auto) 0.51 K/uL (0.11-0.59) 06/25/24 00:44 Eos # (Auto) 0.13 K/uL (0.00-0.50) 06/25/24 00:44 Baso # (Auto) 0.03 K/uL (0.00-0.20) 06/25/24 00:44 Immature Gran # (Auto) 0.02 K/uL (0.01-0.20) 06/25/24 00:44 PT 10.8 Seconds (9.0-12.0) 06/25/24 00:44 INR 1.0 (0.9-1.1) 06/25/24 00:44 APTT 21 Seconds (21-31) 06/25/24 00:44 PTT Ratio 0.8 06/25/24 00:44 Sodium 136 mmol/L (136-145) 06/25/24 00:44 Potassium 4.0 mmol/L (3.5-5.1) 06/25/24 00:44 Chloride 104 mmol/L (98-107) 06/25/24 00:44 Carbon Dioxide 26 mmol/L (21-32) 06/25/24 00:44 Anion Gap 6 (3-11) 06/25/24 00:44 BUN 23 mg/dl (6-23) 06/25/24 00:44 Creatinine 0.85 mg/dl (0.6-1.4) 06/25/24 00:44 Est Cr Clr Drug Dosing 64.7 ml/min 06/25/24 00:44 Est GFR ( Amer) 89.5 ml/min 06/25/24 00:44 Est GFR (Non-Af Amer) 77.3 ml/min 06/25/24 00:44 BUN/Creatinine Ratio 27.1 (10-20) H 06/25/24 00:44 Glucose 178 mg/dl (70-99(Fasting)) H 06/25/24 00:44 Calcium 9.3 mg/dl (8.6-10.3) 06/25/24 00:44 Magnesium 2.0 mg/dl (1.7-2.4) 06/25/24 00:44 Total Bilirubin 0.9 mg/dl (0.2-1.0) 06/25/24 00:44 AST 15 U/L (13-39) 06/25/24 00:44 ALT 12 U/L (7-52) 06/25/24 00:44 Alkaline Phosphatase 77 U/L (34-104) 06/25/24 00:44 Troponin I High Sens 18.4 pg/ml (0-20) 06/25/24 00:44 Total Protein 6.4 gm/dl (6.0-8.3) 06/25/24 00:44 Albumin 4.0 gm/dl (3.4-5.0) 06/25/24 00:44 Globulin 2.4 gm/dl (2.5-4.0) L 06/25/24 00:44 Albumin/Globulin Ratio 1.7 (0.9-2) 06/25/24 00:44 Blood Type O Positive 06/25/24 00:35 Antibody Screen NEGATIVE 06/25/24 00:[address] 06/25/24 00:00 CR Exam(s): CT HEAD Without Contrast EXAM: CT Head Without Intravenous Contrast CLINICAL HISTORY: Reason for exam: neuro deficit, acute stroke suspected. TECHNIQUE: Axial computed tomography images of the head/brain without intravenous contrast. Automated exposure control was utilized for the study. A dose lowering technique was utilized adhering to the principles of ALARA. COMPARISON: CT head: 12/16/2023 FINDINGS: Image quality degraded by motion artifact. Brain: Age-related moderately severe cerebral atrophy with widening of the extra-axial spaces and ventricular dilatation. There are areas of decreased attenuation within the white matter tracts, compatible with chronic microvascular disease changes. No acute intracranial hemorrhage, mass-effect or midline shift noted. Ventricles: Moderate ventriculomegaly, question NPH in the appropriate clinical context. Bones/joints: Unremarkable. No acute fracture. Soft tissues: Unremarkable. Sinuses: Unremarkable as visualized. No acute sinusitis. Mastoid air cells: Mild/moderate left mastoiditis.. IMPRESSION: No conclusive acute intracranial abnormality noted. Chronic involutional and ischemic changes of the brain. If there is continued clinical concern, MRI brain recommended. . Communications: Call Doctor Stroke Electronically signed by: Jasper Longoria MD, MICHELETR 06/25/24 02:13 AM Code Status & VTE Plan Code Status Conditional code VTE Prophylaxis Plan VTE Prophylaxis will be ordered: Yes PG Care Time/CCT Total # of Minutes Spent Total Time Spent with Patient: Total time spent is greater than 50% in coordination of care (as documented) at patient's floor/unit and/or counseling patient: Coding Level of Care Code 18194 INT INP/OBS CARE 3/75MIN Diagnoses Unresponsive episode R40.4 Acute alteration in mental status R41.82 Confusion R41.0 Nitrofurantoin adverse reaction T37.8X5A Mild cognitive impairment G31.84 Dementia F03.90 Paroxysmal atrial fibrillation I48.0 BPH NOS w ur obs/LUTS N40.1 Dyslipidemia E78.5 Diabetes type 2, controlled E11.9 Presence of stent in LAD coronary artery Z95.5 Coronary atherosclerosis of [place] coronary vessel I25.10 Hypertension I10
[2024-06-25] MEDS ORDERED: ACETAMINOPHEN 325 MG TAB PO PRN (03:54)
[2024-06-25] MEDS ORDERED: CARBOHYDRATES FOR HYPOGLYCEMIA PO PRN (03:54)
[2024-06-25] MEDS ORDERED: GLUCOSE 10 TAB/TUBE PO PRN (03:54)
[2024-06-25] MEDS ORDERED: DEXTROSE 50% 50 ML SYRINGE IV PRN (03:54)
[2024-06-25] MEDS ORDERED: GLUCAGON FOR INJ 1 MG VIAL SQ PRN (03:54)
[2024-06-25] MEDS ORDERED: GLUCOSE 40% GEL 15 GM TUBE PO PRN (03:54)
[2024-06-25] MEDS: NSS + 20MEQ KCL 20 MEQ/1,000 ML BAG IV SCH (04:33)
[2024-06-25] MEDS: hydrALAZINE HCL 20 MG/ML VIAL IV PRN (05:04)
[2024-06-25 07:17] LABS: Estimated Average Glucose 128 mg/dl; Hemoglobin A1C 6.1 % (4.5-5.6)
[2024-06-25] MEDS: METHENAMINE HIPPURATE 1 GM TAB PO SCH (08:05)
[2024-06-25] MEDS: ASPIRIN 81 MG ECTAB PO SCH (08:08)
[2024-06-25] MEDS: lisinopril 20 MG TAB PO SCH (08:09)
[2024-06-25] MEDS: CHOLECALCIFEROL 25 MCG (1000 UNITS) TAB PO SCH (08:09)
[2024-06-25] MEDS: FINASTERIDE 5 MG TAB PO SCH (08:09)
[2024-06-25] MEDS: VIBEGRON 75 MG TAB PO SCH (08:10)
[2024-06-25] MEDS: PARoxetine HCL 20 MG TAB PO SCH (08:10)
[2024-06-25] MEDS: MEMANTINE HCL 10 MG TAB PO SCH (08:18)
[2024-06-25] MEDS: VITAMIN B COMPLEX TAB PO SCH (08:19)
[2024-06-25] MEDS: INSULIN ASPART PER UNIT CHARGE SC SCH (08:43)
[2024-06-25] MEDS: LANTUS PER UNIT CHARGE SC SCH (08:44)
--- NOTE | 2024-06-25 09:06 | Electrocardiogram Report ---
Test Reason : Blood Pressure : */* mmHG Vent. Rate : 60 BPM Atrial Rate : 60 BPM P-R Int : 288 ms QRS Dur : 146 ms QT Int : 472 ms P-R-T Axes : 52 -55 85 degrees QTcB Int : 472 ms Sinus rhythm with 1st degree A-V block Left axis deviation Left bundle branch block Abnormal ECG When compared with ECG of 16-Dec-2023 11:21, No significant change was found Confirmed by Arsalan Patel ([id number]) on 06/25/2024 9:06:14 AM Referred By: REFERRED SELF Confirmed By: Arsalan Patel
--- NOTE | 2024-06-25 09:10 | Neurology Consultation ---
Date of Consultation June 25, 2024 Assessment & Plan (1) Unresponsive episode: History of Present Illness Attending Physician: Kecia Nowak MD History of Present Illness pt well known to dr. Tejada neurology. pt apparently fell off the bed while rolling. he think he may have hit his head and found down on the floor. pt this morning feeling well, no headache. CT head negative. pt with long hx of UTI from prostate issues. pt back to his baseline. in good mood this morning. good conversation. admission HPI: The patient is a 89-year-old male resident of [facility], with a past medical history including lower extremity edema, paroxysmal atrial fibrillation, dyslipidemia, BPH with LUTS, diabetes mellitus, dementia, diabetic nephropathy, diabetic peripheral neuropathy, LBBB, presence of LAD stent, chronic prostatitis, mild aortic stenosis, mild aortic regurgitation, and laryngeal pharyngeal reflux. He presents to the ED with an unresponsive episode, underwent an emergent CT scan of head without contrast, which showed chronic . He reportedly became more alert while in the CT scanner, and had returned back to his baseline level of dementia by the time of my exam. He did have loss of bladder control, had the odor of urine, and there was concern by the ED for possible seizure, as he appeared possibly post ictal, but no seizure activity had been observed. Allergies Allergy/AdvReac Type Severity Reaction Status Date / Time Sulfa (Sulfonamide Allergy Unknown ON [place] Verified 06/25/24 01:56 Antibiotics) MED LIST Home Medications Medication Instructions Recorded Confirmed Type cholecalciferol (vitamin D3) 25 1,000 units PO QAM 05/16/19 06/25/24 History mcg (1,000 unit) capsule aspirin 81 mg tablet,delayed 81 mg PO QAM 06/20/19 06/25/24 History release (Adult Low Dose Aspirin) vitamin B complex 1 cap PO QAM 04/05/20 06/25/24 History lisinopril 20 mg tablet 20 mg PO DAILY #90 tabs 06/05/21 06/25/24 Rx metoprolol succinate 25 mg 12.5 mg (1/2 x 25 mg) PO QAM #90 06/17/21 06/25/24 Rx tablet,extended release 24 hr tabs blood glucose control, high #1 ea 11/12/21 04/19/24 Rx (OneTouch Verio High Control solution) lancets 33 gauge (OneTouch Delica #120 ea 12/11/21 04/19/24 Rx Lancets) OneTouch Verio test strips (blood #400 ea 12/13/21 04/19/24 Rx sugar diagnostic) pen needle, diabetic 32 gauge x #400 ea 12/13/21 04/19/24 Rx 5/32" (BD Ultra-Fine Ros Pen Needle) insulin aspart U-100 100 unit/mL See Rx Instructions .Route .COMPLEX 05/21/22 06/25/24 History (3 mL) subcutaneous pen (Novolog FlexPen U-100 Insulin aspart) memantine 10 mg tablet 10 mg PO BID 90 days #180 tabs 07/03/22 06/25/24 Rx acetaminophen 325 mg tablet 650 mg PO Q8H PRN Pain 12/24/22 06/25/24 History (Tylenol) dutasteride 0.5 mg capsule 0.5 mg PO QAM 02/05/23 06/25/24 History mirabegron 50 mg tablet,extended 50 mg PO DAILY #30 tabs 05/27/23 06/25/24 Rx release 24 hr (Myrbetriq) methenamine hippurate 1 gram tablet 1 g PO BID #60 tabs 07/01/23 06/25/24 Rx insulin degludec 100 unit/mL (3 25 unit (0.25 mL) subcut QAM #30 mL 03/29/24 06/25/24 Rx mL) subcutaneous pen (Tresiba FlexTouch U-100 insulin) furosemide 20 mg tablet 20 mg PO DAILY 06/25/24 06/25/24 History nitrofurantoin 100 mg PO BID 06/25/24 06/25/24 History monohydrate/macrocrystals 100 mg capsule paroxetine HCl 20 mg tablet 20 mg PO DAILY 06/25/24 06/25/24 History Patient History Medical History Fall COVID-19 Dementia Closed rib fracture Chronic anticoagulation Weakness Rhabdomyolysis Right rib fracture 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 Enlarged prostate with lower urinary tract symptoms (LUTS) Other and unspecified hyperlipidemia (06/07/12) Hematospermia Myocardial infarction (06/07/12) Nontoxic multinodular goiter PND (post-nasal drip) Sepsis (06/07/12) Pancytopenia (~2000) Left shoulder strain CHI (closed head injury) Surgical History History of tonsillectomy History of cataract surgery History of arthroscopy of knee History of cystoscopy History of colonoscopy Status post Mohs surgery S/P drug eluting coronary stent placement Family History Brother Coronary heart disease Father Angina pectoris Carcinoma of pancreas Myocardial infarction Mother Congestive heart failure Breast cancer Unknown Diabetes Heart disease Hypertension Daughter Breast cancer Denies family history of Ovarian cancer Prostate cancer Colorectal cancer Social History Smoking Status: Never smoker Tobacco Type: Cigarettes Second Hand Exposure: No; Do You Dip or Chew Tobacco: No; Hx Alcohol Use: No (unable to answer) Hx Substance Use: No (unable to answer) Preferred Language: Japanese Communication Ability: Impaired Communication Ability Comment: Alert and oriented to person, periods of confusion. Visual Impairment: Limited Hearing Ability: Normal [employer] Clerk Required: No Beliefs That Will Affect Care: None marital status: / Current Living Situation: [facility] Current Living Situation Comment: [facility] current occupational status: retired How many Children do You have: 3 Feels Safe at Home: Yes Childhood Exposure to Second-Hand Smoke: No caffeine: Yes Dental Care, Regularly: Yes Physical Activity Frequency: 1-2 Times per Week Seatbelt Use: always Sunscreen Use: Yes Assistive Devices: Cane and Walker Assistive Devices Comment: unknown Exam (Neuro) Physical Exam: HEENT: normocephalic grossly Neuro: Mental: alert, knew he was in hospital, not sure of the name but he knew [employer]. not sure of the year but very good conversation with good interaction and making jokes this morning. , fluent speech, normal comprehension, no apraxia, no L/R confusion, no neglect CN: PERRL, Full EOM, symmetric face, midline T/U/P, grossly full ROM neck Motor: No abnormal movements, normal tone, 5/5 t/o bilaterally Sens: intact to touch b/l grossly Coord: intact upper limbs. DTR: 1+ sym b/l Gait:deferred. Impression: 89 yo male with unclear event of LOC in setting of falling off the bed. he has long hx of UTI /prostate issue likely contributed to his bladder incontinence. Not very suggestive of seizure event. Maybe concussive event from falling off the bed and just being very sleepy. Recommendations: no need for EEG pending mri brain check urine no need for AED agree with hold nitrofurantoin as it can cause psychosis if mri brain negative, not much to add from neurology. he can have routine f/u with Dr. Tejada as outpt. Chart reviewed I have spent more than 50% educating patient about potential diagnosis and neurological evaluation and coordinating care with patient's treatment team. Total time spent (including chart review and coordination of care): 60 min (this includes chart review). Results & Data Vital Signs (Past 12 Hours) Vital Signs Temp Pulse Pulse Resp BP BP Pulse Ox 06/25/24 07:00 36.6 C 63 20 169/80 H 94 06/25/24 06:23 52 L 06/25/24 03:57 36.5 C 53 L 18 200/93 H 96 06/25/24 03:24 06/25/24 03:23 16 174/98 H 95 06/25/24 02:33 51 L 12 95 06/25/24 02:30 178/90 H 06/25/24 02:30 178/90 H 06/25/24 02:30 178/90 H 06/25/24 02:30 178/90 H 06/25/24 02:24 52 L 15 95 06/25/24 02:00 49 L 13 96 06/25/24 01:42 52 L 13 96 06/25/24 01:18 52 L 17 94 06/25/24 01:00 170/87 H 06/25/24 01:00 170/87 H 06/25/24 01:00 170/87 H 06/25/24 01:00 50 L 18 94 06/25/24 00:55 176/84 H 06/25/24 00:55 176/84 H 06/25/24 00:55 176/84 H 06/25/24 00:55 176/84 H 06/25/24 00:54 63 15 95 06/25/24 00:44 186/91 H 06/25/24 00:42 52 L 16 94 06/25/24 00:28 06/25/24 00:24 66 19 06/25/24 00:22 36.4 C L 94 H 13 192/105 H 94 06/25/24 00:14 63 06/25/24 00:13 192/105 H 06/25/24 00:13 192/105 H O2 Del Method 06/25/24 07:00 Room Air 06/25/24 06:23 06/25/24 03:57 Room Air 06/25/24 03:24 Room Air 06/25/24 03:23 Room Air 06/25/24 02:33 06/25/24 02:30 06/25/24 02:30 06/25/24 02:30 06/25/24 02:30 06/25/24 02:24 06/25/24 02:00 06/25/24 01:42 06/25/24 01:18 06/25/24 01:00 06/25/24 01:00 06/25/24 01:00 06/25/24 01:00 06/25/24 00:55 06/25/24 00:55 06/25/24 00:55 06/25/24 00:55 06/25/24 00:54 06/25/24 00:44 06/25/24 00:42 06/25/24 00:28 Room Air 06/25/24 00:24 06/25/24 00:22 Room Air 06/25/24 00:14 06/25/24 00:13 06/25/24 00:13 PG Care Time/CCT Total # of Minutes Spent Total Time Spent with Patient: Total time spent is greater than 50% in coordination of care (as documented) at patient's floor/unit and/or counseling patient: Coding Level of Care Code 55660 IN/OBS CONSULT LVL 4,60M Diagnoses Unresponsive episode R40.4
[2024-06-25 09:27] LABS: Appearance Urine Clear (Clear); Bacteria Urine Automated None Seen (None Seen); Bilirubin Urine Negative (Negative); Blood Urine Negative (Negative); Cast Urine Automated 0-2 /lpf (0-2); Color Urine Yellow; Epithelial Cell Urine Auto 0-2 /hpf (0-2); Glucose Urine UA Trace (Negative); Ketones Urine Negative (Negative); Leukocyte Esterase Urine Trace (Negative); Nitrite Urine Negative (Negative); Protein Urine 1+ (Negative); RBC Urine Automated 0-2 /hpf (0-2); Specific Gravity Urine 1.016 (1.000-1.030); Urobilinogen Urine Negative (Negative); pH Urine 6.5 (4.5-7.5)
--- NOTE | 2024-06-25 12:18 | Magnetic Resonance Report ---
MRI OF THE BRAIN WITHOUT CONTRAST CLINICAL HISTORY: unresponsive episode, confusion COMPARISON STUDY: Head CT June 24, 2024. MRI of the brain July 05, 2020. TECHNIQUE: Utilizing a 1.5 Marina magnet and dedicated coil, multiplanar, multiecho imaging of the bra in was performed without IV contrast. FINDINGS: There are no foci of restricted diffusion to suggest acute infarct. No acute intracranial h emorrhage, midline shift or mass effect is present. There is moderate atrophy. This accounts for mild ventricular dilatation. White matter T2 hyperintense foci represent small vessel disease. No intracr anial masses identified on this unenhanced exam. Calvarial signal is normal. IMPRESSION: No acute intracranial findings. ACT 112: Negative or not required by law. Electronically signed by: Óscar Stubbs M.D. 06/25/2024 12:16 PM
[2024-06-25 14:40] VITALS: BP 160/65; RESP 20; TEMP 97.7; O2SAT 95
--- NOTE | 2024-06-25 16:25 | Discharge Summary ---
Date of Service June 25, 2024 Admission HPI Per Admitting Provider The patient is a 89-year-old male resident of [facility], with a past medical history including lower extremity edema, paroxysmal atrial fibrillation, dyslipidemia, BPH with LUTS, diabetes mellitus, dementia, diabetic nephropathy, diabetic peripheral neuropathy, LBBB, presence of LAD stent, chronic prostatitis, mild aortic stenosis, mild aortic regurgitation, and laryngeal pharyngeal reflux. He presents to the ED with an unresponsive episode, underwent an emergent CT scan of head without contrast, which showed chronic . He reportedly became more alert while in the CT scanner, and had returned back to his baseline level of dementia by the time of my exam. He did have loss of bladder control, had the odor of urine, and there was concern by the ED for possible seizure, as he appeared possibly post ictal, but no seizure activity had been observed. Principal Diagnosis Unresponsive episode due to concussive event from fall Discharge Exam Constitutional WD/WN, vitals as above Respiratory normal respiratory effort, lungs clear to auscultation Cardiovascular RRR Neurologic Alert, Awake, oriented to person Discharge Data Allergies Allergy/AdvReac Type Severity Reaction Status Date / Time Sulfa (Sulfonamide Allergy Unknown ON [place] Verified 06/25/24 01:56 Antibiotics) MED LIST Consultations 06/25/24 02:08 ED Decision to Admit Stat 06/25/24 04:48 Consult Neurology Routine Ordered Studies 06/25/24 00:00 CT head/brain wo con Stat 06/25/24 04:48 MRI Brain [MR brain wo con] Routine Hospital Course (1) Unresponsive episode: (2) Nitrofurantoin adverse reaction: (3) Acute alteration in mental status: (4) Acute UTI: (5) Paroxysmal atrial fibrillation: (6) Dyslipidemia: (7) Diabetes type 2, controlled: Unresponsive episode/confusion/mild cognitive impairment due to dementia/adverse drug reaction to nitrofurantoin/possible seizure- Episode resolved while in CT scanner and he was back to baseline. No acute change in CT head, MRI Kept on Tele - normal. Cardiac enzymes normal. Evaluated by neuro - Episode likely concussive event due to fall from bed. Continued home meds - aspirin, vitamin D, memantine, paroxetine Concern of UTI Macrobid in home med list. d/gerhard nitrofurantoin for any possibility of it contributing to confusion. Unknown if this is his chronic med or he was getting treated for UTI UA done - elevated WBC - Keflex started. CAD/LAD stent/hypertension/mild aortic stenosis and regurgitation- Continue aspirin, lisinopril Night time Heart rate down into 49. Consider stopping metoprolol as outpatient. No concern of hypovolemia - continue furosemide Diabetes mellitus- Continue outpatient meds/dose BPH with LUTS/bladder spasm- Continue dutasteride, mirabegron Total Time Total Time Spent Total Time Spent (In Minutes): 30 Discharge Plan Discharge Items Patient Disposition: Transfer Halfway Fac Reason For Visit: UNRESPONSIVE EPISODE Discharge Diagnosis: Unresponsive episode possibly concussive event from falling off the bed. Activity: Resume your previous activity Non-emergency contact: Primary Care Provider Call non-emergency contact if: you have any medication questions Follow-up/Referrals: Loraine branchWright [Primary Care Provider] - Diet: Carb Consistent or DM2 and Low Sodium (2gm) Diet Comment: Diet consistency same as before hospitalization Addtl Attending Provider Instructions: Admitted for Unresponsiveness. Work up negative including MRI brain. Neurology impression - Likely secondary to concussive event after fall from the bed while sleepy. No further evaluation recommended. Mentation back to baseline. UTI - Due to possible concern of reaction to macrobid, it was discontinued. UA with WBC 6-10, foul smelling urine in ED. Added keflex. Pending Studies at Discharge: Yes Studies:: Urine culture Stand-Alone Forms: My [employer] Skilled Items Patient informed of condition?: Yes DNR: No (Code conditional) Discharge Level of Care: Skilled Communicable Disease: No Discharge Prognosis: Stable Lines: None Urinary Catheter: No Medications and DC Order Prescriptions: New cephalexin 250 mg Capsule 250 mg PO QID Qty: 20 0RF Continued lisinopril 20 mg tablet 20 mg PO DAILY Qty: 90 3RF (DME) lancets [OneTouch Delica Lancets] 33 gauge misc See Dose Instructions .ROUTE .MEDSUPPLY Qty: 120 5RF Rx Instructions: Test blood sugars 4 times a day (DME) pen needle, diabetic [BD Ultra-Fine Ros Pen Needle] 32 gauge x 5/32" needle See Rx Instructions .ROUTE .MEDSUPPLY Qty: 400 1RF Rx Instructions: Use to inject insulin 4x per day (DME) OneTouch Verio test strips Strip See Dose Instructions .ROUTE .MEDSUPPLY Qty: 400 3RF Rx Instructions: Test blood sugars 4 times a day: fasting, before lunch, before supper, before bed memantine 10 mg tablet 10 mg PO BID 90 Days Qty: 180 2RF methenamine hippurate 1 gram tablet 1 g PO BID Qty: 60 5RF insulin degludec [Tresiba FlexTouch U-100] 100 unit/mL (3 mL) insulin pen 25 unit SUBCUT QAM Qty: 30 3RF metoprolol succinate 25 mg tablet extended release 24 hr 12.5 mg PO QAM Qty: 90 3RF (DME) OneTouch Verio High Control Solution See Rx Instructions .Route Qty: 1 0RF Rx Instructions: As directed Myrbetriq 50 mg tablet extended release 24 hr 50 mg PO DAILY Qty: 30 2RF vitamin B complex Capsule 1 cap PO QAM cholecalciferol (vitamin D3) 1,000 unit capsule 1,000 units PO QAM aspirin [Adult Low Dose Aspirin] 81 mg tablet,delayed release (DR/EC) 81 mg PO QAM insulin aspart U-100 [Novolog FlexPen U-100 Insulin] 100 unit/mL (3 mL) insulin pen See Rx Instructions .ROUTE .COMPLEX Rx Instructions: TAKES 13 UNITS W/BREAKFAST & LUNCH, 15 UNITS W/DINNER. dutasteride 0.5 mg capsule 0.5 mg PO QAM acetaminophen [Tylenol] 325 mg Tablet 650 mg PO Q8H PRN (Reason: Pain) furosemide 20 mg tablet 20 mg PO DAILY Rx Instructions: take for 5 days with last dose 06/29/24 paroxetine HCl 20 mg tablet 20 mg PO DAILY Discontinued nitrofurantoin monohyd/m-cryst 100 mg capsule 100 mg PO BID Rx Instructions: take for 5 days with last dose ending 06/29/24 Discharge Orders: Discharge Order (Routine); Ordered 06/25/24 Ordered By: Kecia Nowak Admission Data Admit Date/Time: 06/25/24 02:47 Attending Provider: Paulo Stephenson Admit Provider: Paulo Stephenson Primary Care Provider: Loraine branchWright Other Providers: Paulo Stephenson; David Johnson Other Interventions: Discharge Summary Assessment (RN) Last Done: 06/25/24 17:54
[2024-06-25] MEDS ORDERED: cephALEXin 250 MG CAP PO SCH (17:00)
[2024-06-25 17:56] VITALS: PULSE 63
--- NOTE | 2024-06-26 16:25 | Electrocardiogram Report ---
Test Reason : Blood Pressure : */* mmHG Vent. Rate : 52 BPM Atrial Rate : 52 BPM P-R Int : 292 ms QRS Dur : 164 ms QT Int : 504 ms P-R-T Axes : 41 -49 74 degrees QTcB Int : 468 ms Sinus bradycardia with 1st degree A-V block Left axis deviation Left bundle branch block Abnormal ECG When compared with ECG of 25-Jun-2024 00:16, No significant change was found Confirmed by Arsalan Patel ([id number]) on 06/26/2024 4:24:57 PM Referred By: REFERRED SELF Confirmed By: Arsalan Patel
== END 2024-06-25 17:55 ==
LOC: 4W 23:58 → ED 23:58 → SUATTDRO 06-25 02:47 → 4W 06-25 03:24

== ENCOUNTER 2024-07-25 19:35 | Inpatient (IN) ==
[2024-07-25 20:09] LABS: Basophils # (auto) 0.03 K/uL (0.00-0.20); Basophils % (auto) 0.3 %; Eosinophils # (auto) 0.07 K/uL (0.00-0.50); Eosinophils % (auto) 0.7 %; Hematocrit (blood only) 40.4 % (42.0-52.0); Hemoglobin 13.6 g/dl (14.0-18.0); Immature Granulocytes # (auto) 0.02 K/uL (0.01-0.20); Immature Granulocytes % (auto) 0.2 %; Lymphocytes # (auto) 0.66 K/uL (1.20-3.40); Lymphocytes % (auto) 6.9 %; Mean Corpuscular Hemoglobin 32.4 pg (25.0-34.0); Mean Corpuscular Hgb Conc 33.7 g/dL (32.0-36.0); Mean Corpuscular Volume 96.2 fL (80.0-100.0); Mean Platelet Volume 9.3 fL (9.4-12.4); Monocytes # (auto) 0.74 K/uL (0.11-0.59); Monocytes % (auto) 7.8 %; Neutrophils # (auto) 7.98 K/uL (1.40-6.50); Neutrophils % (auto) 84.1 %; Platelet Count 192 K/uL (130-400); RDW Coefficient of Variation 14.3 % (11.5-14.5); RDW Standard Deviation 50.2 fL (36.4-46.3)
--- NOTE | 2024-07-25 20:11 | Emergency Department Note ---
Impression & Plan Fall from standing, Non-ST elevation [place] (NSTEMI), Generalized weakness ED Provider Note HISTORY OF PRESENT ILLNESS: Patient is an 89-year-old male presenting after an unwitnessed fall. Patient reports that he lost his footing and tripped and fell, striking his head on the ground. He denies loss of consciousness. He is not on any anticoagulation. Patient denies any chest pain, shortness of breath or passing out with the fall. He reports he just lost his footing. He does have a history of dementia, but is alert to person and place at this time. He denies any hip pain. Denies any chest pain, shortness of breath or abdominal pain. Denies any headache or changes in vision. Denies any numbness or tingling or weakness in his extremities. ROS: as above PHYSICAL EXAM: Constitutional: Patient appears in no acute distress. HENT: Head: Normocephalic and atraumatic. Eyes: EOMI, PERRL Mouth/Throat: Mucous membranes moist. Neck: Trachea midline. Neck supple. No midline cervical spine tenderness to palpation Cardiovascular: RRR, No murmurs, rubs or gallops. Intact distal pulses. Pulmonary/Chest: No respiratory distress. Breath sounds clear and equal bilaterally. Coarse breath sounds bilaterally. Abdominal: Abdomen soft, no tenderness, rebound or guarding. Back: No midline spinal tenderness, no paraspinal tenderness, no CVA tenderness. Patient is able to straight leg raise bilaterally without pain in the pelvis or low back. Musculoskeletal: No edema, tenderness or deformity noted. Skin: Warm and dry. No rash, erythema, pallor or cyanosis Psychiatric: Appropriate mood and affect for situation. Neurological: Alert and keenly responsive. CN II-XII grossly intact, moving all extremities equally and fully. MDM: - Vitals signs stable. - History obtained via patient and EMS. History as above. - Chronic conditions affecting care: LBBB; HTN; CAD; HLD; paroxysmal Afib; DM-2 - Differential diagnoses include, but are not limited to: Intracranial hemorrhage; pneumothorax; skull fracture; ACS; dysrhythmia - Order placed for continuous cardiac monitoring. At this time, monitor showed rate of 83 bpm with normal sinus rhythm, per my interpretation. - External medical records reviewed. Endocrinology visit note dated 07/14/2024 was reviewed. Patient follows in their clinic for his type 2 diabetes. Of note, he is having more frequent low blood sugars between meals. - EKG interpreted by myself showed normal sinus rhythm. Rate 83 bpm. QT 408. No acute ischemic changes. Noted to have a left bundle branch block, which has been noted on previous EKGs. - Laboratory workup interpreted by myself showed normal WBC; normal PT/INR; elevated BUN (30); stable creatinine; elevated troponin (20.8); normal lipase; normal AST/ALT - CXR negative for pneumonia, per my interpretation - COVID/flu/RSV negative - CT head wo contrast negative for acute intracranial pathology. - CT cervical spine wo contrast negative for acute pathology - Repeat troponin downtrending to 16.9 - Nursing attempted to straight cath the patient for urinalysis, patient became aggravated and then refused to pee in a urinal. Will work on obtaining a urinalysis for further workup. - Patient's blood sugar did drop into the 50s. He was given oral glucose, but son was requesting the IV dextrose being given. Patient given D50 in ER. - Attempted to get patient up to ambulate with nursing staff, but he was very weak and unsteady on his feet. Concerned about sending the patient back to his facility. - Discussion was had with business case analyst about patient's case and need for admission - Hospitalist consulted for admission - Patient [facility] for further evaluation and management. 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 Leukopenia Diabetes type 2, controlled Dementia Weakness (Acute) Influenza A (Acute) Confusion (Acute) Balanitis Incomplete emptying of bladder Gait abnormality Albuminuria 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 Bradycardia Elevated prostate specific antigen (PSA) Mild cognitive impairment Dermatitis (Chronic) LBBB (left bundle branch block) (Chronic) Presence of stent in LAD coronary artery (Chronic) Abnormal electrocardiogram (Chronic) Coronary atherosclerosis of eek coronary vessel (Chronic 06/07/12) 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) Chronic rhinitis (Chronic) Dupuytrens contracture (Chronic) Dysesthesia (Chronic) Elevated PSA (Chronic) Hypertension (Chronic) Laryngopharyngeal reflux (Chronic) Leukopenia (Chronic) Microscopic hematuria (Chronic) Mild aortic regurgitation (Chronic) Mild aortic stenosis (Chronic) Mild mitral regurgitation (Chronic) Nephrolithiasis (Chronic) Vitamin D deficiency (Chronic) Medical History Fall COVID-19 Dementia Closed rib fracture Chronic anticoagulation Weakness Rhabdomyolysis Right rib fracture 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 Enlarged prostate with lower urinary tract symptoms (LUTS) Other and unspecified hyperlipidemia (06/07/12) Hematospermia Myocardial infarction (06/07/12) Nontoxic multinodular goiter PND (post-nasal drip) Sepsis (06/07/12) Pancytopenia (~2000) Left shoulder strain CHI (closed head injury) Surgical History History of tonsillectomy History of cataract surgery History of arthroscopy of knee History of cystoscopy History of colonoscopy Status post Mohs surgery S/P drug eluting coronary stent placement Family History Brother Coronary heart disease Father Angina pectoris Carcinoma of pancreas Myocardial infarction Mother Congestive heart failure Breast cancer Unknown Diabetes Heart disease Hypertension Daughter Breast cancer Denies family history of Ovarian cancer Prostate cancer Colorectal cancer Social History Smoking Status: Never smoker Tobacco Type: Cigarettes Second Hand Exposure: No; Do You Dip or Chew Tobacco: No; Hx Alcohol Use: No (unable to answer) Hx Substance Use: No (unable to answer) Preferred Language: Ethiopian Communication Ability: Impaired Communication Ability Comment: Alert and oriented to person, periods of confusion. Visual Impairment: Limited Hearing Ability: Normal Vp Of Customer Experience Strategy Required: No Beliefs That Will Affect Care: None marital status: / Current Living Situation: Snf Current Living Situation Comment: [facility] current occupational status: retired How many Children do You have: 3 Feels Safe at Home: Yes Childhood Exposure to Second-Hand Smoke: No caffeine: Yes Dental Care, Regularly: Yes Physical Activity Frequency: 1-2 Times per Week Seatbelt Use: always Sunscreen Use: Yes Assistive Devices: Walker Allergies Allergies Allergy/AdvReac Type Severity Reaction Status Date / Time Sulfa (Sulfonamide Allergy Unknown ON HARMONY Verified 06/25/24 01:56 Antibiotics) MED LIST Home Meds Home Medications Medication Instructions Recorded Confirmed cholecalciferol (vitamin D3) 25 1,000 units PO QAM 05/16/19 07/14/24 mcg (1,000 unit) capsule aspirin 81 mg tablet,delayed 81 mg PO QAM 06/20/19 07/14/24 release (Adult Low Dose Aspirin) vitamin B complex 1 cap PO QAM 04/05/20 07/14/24 insulin aspart U-100 100 unit/mL See Rx Instructions .Route .COMPLEX 05/21/22 07/14/24 (3 mL) subcutaneous pen (Novolog FlexPen U-100 Insulin aspart) acetaminophen 325 mg tablet 650 mg PO Q8H PRN Pain 12/24/22 07/14/24 (Tylenol) dutasteride 0.5 mg capsule 0.5 mg PO QAM 02/05/23 07/14/24 furosemide 20 mg tablet 20 mg PO DAILY 06/25/24 07/14/24 paroxetine HCl 20 mg tablet 20 mg PO DAILY 06/25/24 07/14/24 Previous Rx's Medication Instructions Recorded lisinopril 20 mg tablet 20 mg PO DAILY #90 tabs 06/05/21 metoprolol succinate 25 mg 12.5 mg (1/2 x 25 mg) PO QAM #90 06/17/21 tablet,extended release 24 hr tabs blood glucose control, high #1 ea 11/12/21 (OneTouch Verio High Control solution) lancets 33 gauge (OneTouch Delica #120 ea 12/11/21 Lancets) OneTouch Verio test strips (blood #400 ea 12/13/21 sugar diagnostic) pen needle, diabetic 32 gauge x #400 ea 12/13/21 532" (BD Ultra-Fine Ros Pen Needle) memantine 10 mg tablet 10 mg PO BID 90 days #180 tabs 07/03/22 mirabegron 50 mg tablet,extended 50 mg PO DAILY #30 tabs 05/27/23 release 24 hr (Myrbetriq) methenamine hippurate 1 gram tablet 1 g PO BID #60 tabs 07/01/23 insulin degludec 100 unit/mL (3 25 unit (0.25 mL) subcut QAM #30 mL 03/29/24 mL) subcutaneous pen (Tresiba FlexTouch U-100 insulin) cephalexin 250 mg capsule 250 mg PO QID #20 caps 06/25/24 Results & Data (ED) Vital Signs Vital Signs - 24 hr 07/25/24 19:38 07/25/24 19:48 07/25/24 19:57 Temperature 36.9 C Temperature Source Oral Pulse Rate 87 83 84 Pulse Rate from SpO2 Sensor 84 Pulse Rhythm Regular Pulse Strength Normal Respiratory Rate 21 19 Respiratory Effort / Characteristics Non-Labored Respiratory Depth Normal Respiratory Pattern Regular Blood Pressure 122/65 Blood Pressure Mean 84 Blood Pressure Position Sitting Pulse Oximetry 93 97 Oxygen Delivery Method Room Air Sepsis Recent Fever Within 48 Hours No Sepsis New/Unexplained Change in Mental Status No Sepsis Action Taken by Nursing No Action Required 07/25/24 20:15 07/25/24 20:30 07/25/24 20:30 Temperature Temperature Source Pulse Rate 85 85 Pulse Rate from SpO2 Sensor 85 85 Pulse Rhythm Pulse Strength Respiratory Rate 22 22 Respiratory Effort / Characteristics Respiratory Depth Respiratory Pattern Blood Pressure 142/78 H Blood Pressure Mean 114 Blood Pressure Position Pulse Oximetry 96 97 Oxygen Delivery Method Sepsis Recent Fever Within 48 Hours Sepsis New/Unexplained Change in Mental Status Sepsis Action Taken by Nursing 07/25/24 20:30 07/25/24 20:48 07/25/24 21:00 Temperature Temperature Source Pulse Rate 90 Pulse Rate from SpO2 Sensor 88 Pulse Rhythm Pulse Strength Respiratory Rate 22 Respiratory Effort / Characteristics Respiratory Depth Respiratory Pattern Blood Pressure 142/78 H 135/84 Blood Pressure Mean 114 102 Blood Pressure Position Pulse Oximetry 98 Oxygen Delivery Method Sepsis Recent Fever Within 48 Hours Sepsis New/Unexplained Change in Mental Status Sepsis Action Taken by Nursing 07/25/24 21:00 07/25/24 21:09 07/25/24 21:27 Temperature Temperature Source Pulse Rate 91 H 88 Pulse Rate from SpO2 Sensor 85 Pulse Rhythm Pulse Strength Respiratory Rate 17 17 Respiratory Effort / Characteristics Respiratory Depth Respiratory Pattern Blood Pressure 135/84 Blood Pressure Mean 102 Blood Pressure Position Pulse Oximetry 94 Oxygen Delivery Method Sepsis Recent Fever Within 48 Hours Sepsis New/Unexplained Change in Mental Status Sepsis Action Taken by Nursing 07/25/24 21:30 07/25/24 21:30 07/25/24 21:45 Temperature Temperature Source Pulse Rate 89 Pulse Rate from SpO2 Sensor 89 Pulse Rhythm Pulse Strength Respiratory Rate 20 Respiratory Effort / Characteristics Respiratory Depth Respiratory Pattern Blood Pressure 144/74 H 144/74 H Blood Pressure Mean 111 111 Blood Pressure Position Pulse Oximetry 94 Oxygen Delivery Method Sepsis Recent Fever Within 48 Hours Sepsis New/Unexplained Change in Mental Status Sepsis Action Taken by Nursing 07/25/24 22:00 07/25/24 22:00 07/25/24 22:00 Temperature Temperature Source Pulse Rate Pulse Rate from SpO2 Sensor Pulse Rhythm Pulse Strength Respiratory Rate Respiratory Effort / Characteristics Respiratory Depth Respiratory Pattern Blood Pressure 120/80 120/80 120/80 Blood Pressure Mean 98 98 98 Blood Pressure Position Pulse Oximetry Oxygen Delivery Method Sepsis Recent Fever Within 48 Hours Sepsis New/Unexplained Change in Mental Status Sepsis Action Taken by Nursing 07/25/24 22:00 07/25/24 22:03 07/25/24 22:18 Temperature Temperature Source Pulse Rate 91 H 85 Pulse Rate from SpO2 Sensor Pulse Rhythm Pulse Strength Respiratory Rate 18 24 Respiratory Effort / Characteristics Respiratory Depth Respiratory Pattern Blood Pressure 120/80 Blood Pressure Mean 98 Blood Pressure Position Pulse Oximetry Oxygen Delivery Method Sepsis Recent Fever Within 48 Hours Sepsis New/Unexplained Change in Mental Status Sepsis Action Taken by Nursing 07/25/24 22:31 07/25/24 22:31 07/25/24 22:31 Temperature Temperature Source Pulse Rate Pulse Rate from SpO2 Sensor Pulse Rhythm Pulse Strength Respiratory Rate Respiratory Effort / Characteristics Respiratory Depth Respiratory Pattern Blood Pressure 107/75 107/75 107/75 Blood Pressure Mean 79 79 79 Blood Pressure Position Pulse Oximetry Oxygen Delivery Method Sepsis Recent Fever Within 48 Hours Sepsis New/Unexplained Change in Mental Status Sepsis Action Taken by Nursing 07/25/24 22:31 07/25/24 23:00 07/25/24 23:00 Temperature Temperature Source Pulse Rate 83 Pulse Rate from SpO2 Sensor Pulse Rhythm Pulse Strength Respiratory Rate 19 Respiratory Effort / Characteristics Respiratory Depth Respiratory Pattern Blood Pressure 107/75 128/71 Blood Pressure Mean 79 84 Blood Pressure Position Pulse Oximetry Oxygen Delivery Method Sepsis Recent Fever Within 48 Hours Sepsis New/Unexplained Change in Mental Status Sepsis Action Taken by Nursing 07/25/24 23:30 07/25/24 23:30 07/25/24 23:30 Temperature Temperature Source Pulse Rate 83 Pulse Rate from SpO2 Sensor Pulse Rhythm Pulse Strength Respiratory Rate 15 Respiratory Effort / Characteristics Respiratory Depth Respiratory Pattern Blood Pressure 137/78 137/78 Blood Pressure Mean 120 120 Blood Pressure Position Pulse Oximetry Oxygen Delivery Method Sepsis Recent Fever Within 48 Hours Sepsis New/Unexplained Change in Mental Status Sepsis Action Taken by Nursing Laboratory Data 07/25/24 19:48 07/25/24 19:48 Lab Results 07/25/24 07/25/24 07/25/24 Range/Units 19:48 21:31 21:48 WBC 9.50 (4.8-10.8) K/ul RBC 4.20 L (4.70-6.10) M/uL Hgb 13.6 L (14.0-18.0) g/dl Hct 40.4 L (42.0-52.0) % MCV 96.2 (80.0-100.0) fL MCH 32.4 (25.0-34.0) pg MCHC 33.7 (32.0-36.0) g/dL RDW Std Deviation 50.2 H (36.4-46.3) fL RDW Coeff of Anaid 14.3 (11.5-14.5) % Plt Count 192 (130-400) K/uL MPV 9.3 L (9.4-12.4) fL Immature Gran % (Auto) 0.2 % Neut % (Auto) 84.1 % Lymph % (Auto) 6.9 % [place] % (Auto) 7.8 % Eos % (Auto) 0.7 % Baso % (Auto) 0.3 % Neut # (Auto) 7.98 H (1.40-6.50) K/uL Lymph # (Auto) 0.66 L (1.20-3.40) K/uL [place] # (Auto) 0.74 H (0.11-0.59) K/uL Eos # (Auto) 0.07 (0.00-0.50) K/uL Baso # (Auto) 0.03 (0.00-0.20) K/uL Immature Gran # (Auto) 0.02 (0.01-0.20) K/uL PT 11.2 (9.0-12.0) Seconds INR 1.0 (0.9-1.1) Sodium 139 (136-145) mmol/L Potassium 3.7 (3.5-5.1) mmol/L Chloride 105 (98-107) mmol/L Carbon Dioxide 26 (21-32) mmol/L Anion Gap 8 (3-11) BUN 30 H (6-23) mg/dl Creatinine 1.14 (0.6-1.4) mg/dl Est Cr Clr Drug Dosing 51.0 ml/min Est GFR ( Amer) 65.7 ml/min Est GFR (Non-Af Amer) 56.7 ml/min BUN/Creatinine Ratio 26.3 H (10-20) Glucose 79 (70-99(Fasting)) mg/dl POC Glucose 38 L* (70-99) mg/dl Calcium 9.3 (8.6-10.3) mg/dl Total Bilirubin 1.0 (0.2-1.0) mg/dl AST 16 (13-39) U/L ALT 14 (7-52) U/L Alkaline Phosphatase 87 (34-104) U/L Troponin I High Sens 20.8 H 16.9 (0-20) pg/ml Total Protein 6.6 (6.0-8.3) gm/dl Albumin 4.0 (3.4-5.0) gm/dl Globulin 2.6 (2.5-4.0) gm/dl Albumin/Globulin Ratio 1.5 (0.9-2) Lipase 5 L (11-82) U/L SARS-CoV-2 (PCR) (Negative) Influenza Type A (PCR) (Neg) Influenza Type B (PCR) (Neg) RSV (RT-PCR) (Neg) 07/25/24 07/25/24 07/25/24 Range/Units 22:12 22:51 Unknown WBC (4.8-10.8) K/ul RBC (4.70-6.10) M/uL Hgb (14.0-18.0) g/dl Hct (42.0-52.0) % MCV (80.0-100.0) fL MCH (25.0-34.0) pg MCHC (32.0-36.0) g/dL RDW Std Deviation (36.4-46.3) fL RDW Coeff of Anaid (11.5-14.5) % Plt Count (130-400) K/uL MPV (9.4-12.4) fL Immature Gran % (Auto) % Neut % (Auto) % Lymph % (Auto) % [place] % (Auto) % Eos % (Auto) % Baso % (Auto) % Neut # (Auto) (1.40-6.50) K/uL Lymph # (Auto) (1.20-3.40) K/uL [place] # (Auto) (0.11-0.59) K/uL Eos # (Auto) (0.00-0.50) K/uL Baso # (Auto) (0.00-0.20) K/uL Immature Gran # (Auto) (0.01-0.20) K/uL PT (9.0-12.0) Seconds INR (0.9-1.1) Sodium (136-145) mmol/L Potassium (3.5-5.1) mmol/L Chloride (98-107) mmol/L Carbon Dioxide (21-32) mmol/L Anion Gap (3-11) BUN (6-23) mg/dl Creatinine (0.6-1.4) mg/dl Est Cr Clr Drug Dosing ml/min Est GFR ( Amer) ml/min Est GFR (Non-Af Amer) ml/min BUN/Creatinine Ratio (10-20) Glucose (70-99(Fasting)) mg/dl POC Glucose 130 H 128 H (70-99) mg/dl Calcium (8.6-10.3) mg/dl Total Bilirubin (0.2-1.0) mg/dl AST (13-39) U/L ALT (7-52) U/L Alkaline Phosphatase (34-104) U/L Troponin I High Sens (0-20) pg/ml Total Protein (6.0-8.3) gm/dl Albumin (3.4-5.0) gm/dl Globulin (2.5-4.0) gm/dl Albumin/Globulin Ratio (0.9-2) Lipase (11-82) U/L SARS-CoV-2 (PCR) NEGATIVE (Negative) Influenza Type A (PCR) Negative (Neg) Influenza Type B (PCR) Negative (Neg) RSV (RT-PCR) Negative (Neg) Administered Medications Discontinued Medications Dextrose (Dextrose 50% 50 Ml Syringe) 50 ml IV NOW ONE Stop: 07/25/24 21:53 Last Admin: 07/25/24 21:56 Dose: 50 ml Documented By: AA Imaging Data Radiologist's Impression: Cervical Spine CT 07/25/24 19:54 Exam(s): CT C SPINE EXAM: CT Cervical Spine Without Intravenous Contrast CLINICAL HISTORY: fall from standing. TECHNIQUE: Axial computed tomography images of the cervical spine without intravenous contrast. CTDI is 26.68 mGy and DLP is 543.83 mGy-cm. Automated exposure control was utilized for the study. A dose lowering technique was utilized adhering to the principles of ALARA. COMPARISON: CT cervical spine dated 10/17/2022 FINDINGS: Vertebrae: No acute cervical vertebral body fracture identified. 4 mm anterolisthesis of C3 on C4 and 4.5 mm anterolisthesis of C4 on C5 is stable from the previous examination. Similar straightening of the normal cervical lordosis. The pedicles, facet joints, spinous processes and transverse processes are intact. Progressive multilevel bilateral facet arthropathy noted. There is degenerative ankylosis of the left C3- C4 and C4-C5 facets. Developing ankylosis is also noted on the right at these levels. Discs/spinal canal/neural foramina: Multilevel degenerative changes with disc space narrowing and marginal hypertrophic osteophytes. Not significantly progressive. Bridging osteophytes noted anteriorly at C4- C5 level. Soft tissues: Unremarkable. Lung apices: No significant acute traumatic injury involving the included lung apices. IMPRESSION: No acute osseous traumatic injury or significant alteration in alignment of the cervical spine when compared to the previous examination. Incidental multilevel chronic degenerative changes. Electronically signed by: Rene Lind MD 07/25/24 20:[address] 07/25/24 19:54 Exam(s): CT HEAD Without Contrast EXAM: CT Head Without Intravenous Contrast CLINICAL HISTORY: fall from standing. TECHNIQUE: Axial computed tomography images of the head/brain without intravenous contrast. CTDI is 200.37 mGy and DLP is 3296.88 mGy-cm. Automated exposure control was utilized for the study. A dose lowering technique was utilized adhering to the principles of ALARA. COMPARISON: CT head 06/24/2024; 12/16/2023; MRI 06/25/2024 FINDINGS: Limitations: There is motion artifact, despite repeated imaging attempts, which minimally degrades image quality on multiple image slices. Brain: No definite intracranial hemorrhage. No significant mass effect. No evidence for cortical infarct. Diffuse underlying parenchymal involutional changes are similar to the previous examination. Similar periventricular deep white matter hypodense changes remain. Ventricles: No midline shift or developing new ventriculomegaly. Bones/joints: No skull fracture. Soft tissues: No significant overlying acute traumatic soft tissue abnormality. Sinuses: Unremarkable as visualized. No acute sinusitis. Mastoid air cells: Unremarkable as visualized. No mastoid effusion. IMPRESSION: No acute intracranial process or significant alteration from the prior examination. Chronic underlying presumed age-related findings, as detailed above. Electronically signed by: Rene Lind MD 07/25/24 20:52 PM Discharge Plan Visit Data Chief Complaint: Fall Stated Complaint: FALL, HEAD PAIN, HIP PAIN ED Provider: Safia Gallagher Discharge Problem: Fall from standing, Non-ST elevation [place] (NSTEMI), Generalized weakness Forms Stand Alone Forms: [facility] Prescriptions Prescriptions: No Action lisinopril 20 mg tablet 20 mg PO DAILY Qty: 90 3RF (DME) lancets [OneTouch Delica Lancets] 33 gauge misc See Dose Instructions .ROUTE .MEDSUPPLY Qty: 120 5RF Rx Instructions: Test blood sugars 4 times a day (DME) pen needle, diabetic [BD Ultra-Fine Ros Pen Needle] 32 gauge x 5/32" needle See Rx Instructions .ROUTE .MEDSUPPLY Qty: 400 1RF Rx Instructions: Use to inject insulin 4x per day (DME) OneTouch Verio test strips Strip See Dose Instructions .ROUTE .MEDSUPPLY Qty: 400 3RF Rx Instructions: Test blood sugars 4 times a day: fasting, before lunch, before supper, before bed memantine 10 mg tablet 10 mg PO BID 90 Days Qty: 180 2RF methenamine hippurate 1 gram tablet 1 g PO BID Qty: 60 5RF insulin degludec [Tresiba FlexTouch U-100] 100 unit/mL (3 mL) insulin pen 25 unit SUBCUT QAM Qty: 30 3RF metoprolol succinate 25 mg tablet extended release 24 hr 12.5 mg PO QAM Qty: 90 3RF (DME) OneTouch Verio High Control Solution See Rx Instructions .Route Qty: 1 0RF Rx Instructions: As directed Myrbetriq 50 mg tablet extended release 24 hr 50 mg PO DAILY Qty: 30 2RF vitamin B complex Capsule 1 cap PO QAM cholecalciferol (vitamin D3) 1,000 unit capsule 1,000 units PO QAM aspirin [Adult Low Dose Aspirin] 81 mg tablet,delayed release (DR/EC) 81 mg PO QAM insulin aspart U-100 [Novolog FlexPen U-100 Insulin] 100 unit/mL (3 mL) insulin pen See Rx Instructions .ROUTE .COMPLEX Rx Instructions: TAKES 13 UNITS W/BREAKFAST & LUNCH, 15 UNITS W/DINNER. dutasteride 0.5 mg capsule 0.5 mg PO QAM acetaminophen [Tylenol] 325 mg Tablet 650 mg PO Q8H PRN (Reason: Pain) furosemide 20 mg tablet 20 mg PO DAILY Rx Instructions: take for 5 days with last dose 06/29/24 paroxetine HCl 20 mg tablet 20 mg PO DAILY cephalexin 250 mg Capsule 250 mg PO QID Qty: 20 0RF Referrals Referrals: [facility] [Non-Staff] -
[2024-07-25 20:23] LABS: Albumin Globulin Ratio 1.5 (0.9-2); BUN Creatinine Ratio 26.3 (10-20); Calcium 9.3 mg/dl (8.6-10.3); Est GFR (African American) 65.7 ml/min; Est GFR (Non-African American) 56.7 ml/min; Globulin 2.6 gm/dl (2.5-4.0); Potassium 3.7 mmol/L (3.5-5.1); Total Protein 6.6 gm/dl (6.0-8.3)
[2024-07-25 20:30] LABS: Troponin I High Sensitivity 20.8 pg/ml (0-20)
[2024-07-25 20:31] LABS: Prothrombin Time 11.2 Seconds (9.0-12.0)
[2024-07-25 20:39] LABS: Influenza A virus by PCR Negative (Neg); Influenza B virus by PCR Negative (Neg); RSV by PCR Negative (Neg); SARS CoV2 RNA(COVID-19) Ceph NEGATIVE (Negative)
--- NOTE | 2024-07-25 20:50 | CT Scan Report ---
Exam(s): CT C SPINE EXAM: CT Cervical Spine Without Intravenous Contrast CLINICAL HISTORY: fall from standing. TECHNIQUE: Axial computed tomography images of the cervical spine without intravenous contrast. CTDI is 26.68 mGy and DLP is 543.83 mGy-cm. Automated exposure control was utilized for the study. A dose lowering technique was utilized adhering to the principles of ALARA. COMPARISON: CT cervical spine dated 10/17/2022 FINDINGS: Vertebrae: No acute cervical vertebral body fracture identified. 4 mm anterolisthesis of C3 on C4 and 4.5 mm anterolisthesis of C4 on C5 is stable from the previous examination. Similar straightening of the normal cervical lordosis. The pedicles, facet joints, spinous processes and transverse processes are intact. Progressive multilevel bilateral facet arthropathy noted. There is degenerative ankylosis of the left C3- C4 and C4-C5 facets. Developing ankylosis is also noted on the right at these levels. Discs/spinal canal/neural foramina: Multilevel degenerative changes with disc space narrowing and marginal hypertrophic osteophytes. Not significantly progressive. Bridging osteophytes noted anteriorly at C4- C5 level. Soft tissues: Unremarkable. Lung apices: No significant acute traumatic injury involving the included lung apices. IMPRESSION: No acute osseous traumatic injury or significant alteration in alignment of the cervical spine when compared to the previous examination. Incidental multilevel chronic degenerative changes. Electronically signed by: Rene Lind MD 07/25/24 20:49 PM
--- NOTE | 2024-07-25 20:54 | CT Scan Report ---
Exam(s): CT HEAD Without Contrast EXAM: CT Head Without Intravenous Contrast CLINICAL HISTORY: fall from standing. TECHNIQUE: Axial computed tomography images of the head/brain without intravenous contrast. CTDI is 200.37 mGy and DLP is 3296.88 mGy-cm. Automated exposure control was utilized for the study. A dose lowering technique was utilized adhering to the principles of ALARA. COMPARISON: CT head 06/24/2024; 12/16/2023; MRI 06/25/2024 FINDINGS: Limitations: There is motion artifact, despite repeated imaging attempts, which minimally degrades image quality on multiple image slices. Brain: No definite intracranial hemorrhage. No significant mass effect. No evidence for cortical infarct. Diffuse underlying parenchymal involutional changes are similar to the previous examination. Similar periventricular deep white matter hypodense changes remain. Ventricles: No midline shift or developing new ventriculomegaly. Bones/joints: No skull fracture. Soft tissues: No significant overlying acute traumatic soft tissue abnormality. Sinuses: Unremarkable as visualized. No acute sinusitis. Mastoid air cells: Unremarkable as visualized. No mastoid effusion. IMPRESSION: No acute intracranial process or significant alteration from the prior examination. Chronic underlying presumed age-related findings, as detailed above. Electronically signed by: Rene Lind MD 07/25/24 20:52 PM
[2024-07-25] MEDS: DEXTROSE 50% 50 ML SYRINGE IV ONE (21:56)
--- NOTE | 2024-07-26 00:31 | History & Physical Report ---
Date of Service July 26, 2024 Assessment & Plan (1) Fall from standing: Plan: -Patient with a mechanical fall and striking his head. Not on blood thinners. -Head CT negative, cervical spine CT negative. -CBC, PT/INR, CMP are unremarkable. -Did have a slight elevation in BUN of 30 though creatinine stable at 1.14. Will give 500 cc LR in the ED prior to admission. -No syncopal event. May be due to underlying UTI though UA is still pending to be collected. Will hold off on antibiotics. Blood cultures pending. -Due to patient hitting his head will monitor closely. -PT OT ordered. (2) Generalized weakness: Plan: -Patient with generalized weakness has been going for some time. -PT OT ordered. (3) Elevated troponin: Plan: -ED reports NSTEMI, troponin of 20.8 with a 2-hour repeat of 16.9. -No concern for NSTEMI at this time. -Will monitor on telemetry. (4) Type 2 diabetes mellitus: Plan: -Patient's home regimen held on admission -Continue BSG checks, sliding-scale insulin, hypoglycemic protocol -Patient was found to be hypoglycemic in the ED. With a glucose of 38. -Does follow with endocrinology and has been working on getting better control of his diabetes. -Pharmacy diabetic management consulted. (5) Altered mental status: Plan: -Currently for his altered mental status though is hard to distinguish with his history of dementia. -Waiting on UA at time of admission. Will also get blood cultures. -Hold off on treatment for UTI at this time until UA is able to be obtained. -COVID, influenza, and RSV negative. (6) Paroxysmal atrial fibrillation: Plan: -Patient with a history of paroxysmal atrial fibrillation not on anticoagulation. -EKG in the ED showed sinus rhythm with first-degree AV block. -Will monitor on telemetry. (7) BPH NOS w ur obs/LUTS: Plan: -Patient with BPH which may be underlying possible UTI. UA pending collection. -Straight cath done bedside, unable to obtain any urine output despite 750CC on bladder scan. -Urology referral placed. (8) Urinary retention: Plan: -as above, patient with 750CC on bladder scan unable to straight cath any urine. -Of note, nursing in ED states that patient was bladder incontinent at time of arrival. -urology referral placed. (9) Dementia: Plan: -Patient with dementia with a baseline being alert and oriented to self and pl [place]. -May ultimately be the underlying cause of patient's deconditioning. -PT OT ordered. History of Present Illness Chief Complaint: fall from standing; weakness; NSTEMI Primary Care Provider: Yeison Gamez MD Patient is an 89-year-old male with past medical history including lower extremity edema, paroxysmal atrial fibrillation, dyslipidemia, BPH with LUTS, diabetes mellitus, dementia, diabetic nephropathy, diabetic peripheral ne uropathy, LBBB, presence of LAD stent, chronic prostatitis, mild aortic stenosis, mild aortic regurgitation, and laryngeal pharyngeal reflux. He presents to the hospital from [facility] for unwitnessed fall. He did strike his head. Denies loss of consciousness. Not currently on any blood thinners. States that he fell by losing his footing and did not have a syncopal event. Denies any chest pain, shortness of breath, or abdominal pain. Denies any headache. Denies any numbness and tingling in his extremities. With discussion with the patient, patient has a history of dementia and is only alert and oriented to self. Family was not bedside at time of admission. Did discuss with nursing who states that family was concerned that he has been more confused than normal he over the past couple days. He is also been having a cough for the last 3 weeks. And they have noticed that he is also been unsteady on his feet and having ambulatory dysfunction since Thursday. Allergies Allergy/AdvReac Type Severity Reaction Status Date / Time Sulfa (Sulfonamide Allergy Unknown ON [place] Verified 06/25/24 01:56 Antibiotics) MED LIST Home Medications Medication Instructions Recorded Confirmed Type cholecalciferol (vitamin D3) 25 1,000 units PO QAM 05/16/19 07/14/24 History mcg (1,000 unit) capsule aspirin 81 mg tablet,delayed 81 mg PO QAM 06/20/19 07/14/24 History release (Adult Low Dose Aspirin) vitamin B complex 1 cap PO QAM 04/05/20 07/14/24 History lisinopril 20 mg tablet 20 mg PO DAILY #90 tabs 06/05/21 07/14/24 Rx metoprolol succinate 25 mg 12.5 mg (1/2 x 25 mg) PO QAM #90 06/17/21 07/14/24 Rx tablet,extended release 24 hr tabs blood glucose control, high #1 ea 11/12/21 07/14/24 Rx (OneTouch Verio High Control solution) lancets 33 gauge (OneTouch Delica #120 ea 12/11/21 07/14/24 Rx Lancets) OneTouch Verio test strips (blood #400 ea 12/13/21 07/14/24 Rx sugar diagnostic) pen needle, diabetic 32 gauge x #400 ea 12/13/21 07/14/24 Rx 5/32" (BD Ultra-Fine Ros Pen Needle) insulin aspart U-100 100 unit/mL See Rx Instructions .Route .COMPLEX 05/21/22 07/14/24 History (3 mL) subcutaneous pen (Novolog FlexPen U-100 Insulin aspart) memantine 10 mg tablet 10 mg PO BID 90 days #180 tabs 07/03/22 07/14/24 Rx acetaminophen 325 mg tablet 650 mg PO Q8H PRN Pain 12/24/22 07/14/24 History (Tylenol) dutasteride 0.5 mg capsule 0.5 mg PO QAM 02/05/23 07/14/24 History mirabegron 50 mg tablet,extended 50 mg PO DAILY #30 tabs 05/27/23 07/14/24 Rx release 24 hr (Myrbetriq) methenamine hippurate 1 gram tablet 1 g PO BID #60 tabs 07/01/23 07/14/24 Rx insulin degludec 100 unit/mL (3 25 unit (0.25 mL) subcut QAM #30 mL 03/29/24 07/14/24 Rx mL) subcutaneous pen (Tresiba FlexTouch U-100 insulin) cephalexin 250 mg capsule 250 mg PO QID #20 caps 06/25/24 07/14/24 Rx furosemide 20 mg tablet 20 mg PO DAILY 06/25/24 07/14/24 History paroxetine HCl 20 mg tablet 20 mg PO DAILY 06/25/24 07/14/24 History Past Med/Surg History Problem List (Updated 07/26/24 @ 04:36 by Александр Olmstead DO) Urinary retention Type 2 diabetes mellitus Altered mental status Elevated troponin Generalized weakness (Acute) Non-ST elevation CO (NSTEMI) (Acute) Fall from standing (Acute) Unresponsive episode Nitrofurantoin adverse reaction Acute alteration in mental status (Acute) History of gross hematuria Edema of both lower legs Dependent edema Incontinence Acute UTI Paroxysmal atrial fibrillation Dyslipidemia Weakness (Acute) Moderate nonproliferative diabetic retinopathy BPH NOS w ur obs/LUTS Leukopenia Diabetes type 2, controlled Dementia Weakness (Acute) Influenza A (Acute) Confusion (Acute) Balanitis Incomplete emptying of bladder Gait abnormality Albuminuria 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 Bradycardia Elevated prostate specific antigen (PSA) Mild cognitive impairment Dermatitis (Chronic) LBBB (left bundle branch block) (Chronic) Presence of stent in LAD coronary artery (Chronic) Abnormal electrocardiogram (Chronic) Coronary atherosclerosis of [place] coronary vessel (Chronic 06/07/12) 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) Chronic rhinitis (Chronic) Dupuytrens contracture (Chronic) Dysesthesia (Chronic) Elevated PSA (Chronic) Hypertension (Chronic) Laryngopharyngeal reflux (Chronic) Leukopenia (Chronic) Microscopic hematuria (Chronic) Mild aortic regurgitation (Chronic) Mild aortic stenosis (Chronic) Mild mitral regurgitation (Chronic) Nephrolithiasis (Chronic) Vitamin D deficiency (Chronic) Medical History Fall COVID-19 Dementia Closed rib fracture Chronic anticoagulation Weakness Rhabdomyolysis Right rib fracture 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 Enlarged prostate with lower urinary tract symptoms (LUTS) Other and unspecified hyperlipidemia (06/07/12) Hematospermia Myocardial infarction (06/07/12) Nontoxic multinodular goiter PND (post-nasal drip) Sepsis (06/07/12) Pancytopenia (~2000) Left shoulder strain CHI (closed head injury) Surgical History History of tonsillectomy History of cataract surgery History of arthroscopy of knee History of cystoscopy History of colonoscopy Status post Mohs surgery S/P drug eluting coronary stent placement Family History Brother Coronary heart disease Father Angina pectoris Carcinoma of pancreas Myocardial infarction Mother Congestive heart failure Breast cancer Unknown Diabetes Heart disease Hypertension Daughter Breast cancer Denies family history of Ovarian cancer Prostate cancer Colorectal cancer Social History Smoking Status: Never smoker Tobacco Type: Cigarettes Second Hand Exposure: No; Do You Dip or Chew Tobacco: No; Hx Alcohol Use: No (unable to answer) Hx Substance Use: No (unable to answer) Preferred Language: Ukrainian Communication Ability: Impaired Communication Ability Comment: Alert and oriented to person, periods of confusion. Visual Impairment: Limited Hearing Ability: Normal Loader Required: No Beliefs That Will Affect Care: None marital status: / Current Living Situation: Skilled Nursing Current Living Situation Comment: [place] current occupational status: retired How many Children do You have: 3 Other Information That Helps Us Care for You: No Feels Safe at Home: Yes Safety Concerns: Feels Safe At This Time Childhood Exposure to Second-Hand Smoke: No caffeine: Yes Dental Care, Regularly: Yes Physical Activity Frequency: 1-2 Times per Week Seatbelt Use: always Sunscreen Use: Yes Assistive Devices: Walker Review of Systems Review of Systems: All systems reviewed & are unremarkable except as noted in Subjective Physical Exam Physical Exam: Constitutional: well-appearing, no acute distress, HEENT: NCAT, no conjunctival injection CV: regular rhythm, no murmur appreciated, extremities well-perfused, no LE edema Resp: CTABL, no wheezes/rales/rhonchi appreciated, no increased work of breathing GI: soft, nondistended, nontender, BS normoactive MSK: no gross deformities appreciated Skin: warm, dry, no rash appreciated Neuro: Alert and oriented x 1 (self) Results & Data Results & Data Vital Signs (Past 12 Hours) Vital Signs Temp Pulse Resp BP Pulse Ox O2 Del Method 07/25/24 23:30 137/78 07/25/24 23:30 137/78 07/25/24 23:30 83 15 07/25/24 23:00 83 19 07/25/24 23:00 128/71 07/25/24 22:31 107/75 07/25/24 22:31 107/75 07/25/24 22:31 107/75 07/25/24 22:31 107/75 07/25/24 22:18 85 24 07/25/24 22:03 91 H 18 07/25/24 22:00 120/80 07/25/24 22:00 120/80 07/25/24 22:00 120/80 07/25/24 22:00 120/80 07/25/24 21:45 89 20 94 07/25/24 21:30 144/74 H 07/25/24 21:30 144/74 H 07/25/24 21:27 88 17 94 07/25/24 21:09 91 H 17 07/25/24 21:00 135/84 07/25/24 21:00 135/84 07/25/24 20:48 90 22 98 07/25/24 20:30 142/78 H 07/25/24 20:30 142/78 H 07/25/24 20:30 85 22 97 07/25/24 20:15 85 22 96 07/25/24 19:57 84 07/25/24 19:48 83 19 97 07/25/24 19:38 36.9 C 87 21 122/65 93 Room Air Supervising Physician Co-Signing Physician Notes Attending addendum: I have physically seen this patient, have supervised the medical residents activities, and agree with the H&P unless as otherwise noted. Assessment and Plan: Ground-level fall from standing- Mechanical fall, with patient striking his head CT scan of head and cervical spine both negative May be secondary to physiologic stress of urinary tract infection Follow-up for possible hypoglycemic event as cause Follow urine culture and sensitivity Repeat CBC with differential, chemistry profile Consult PT/OT Elevated troponin/CAD/presence of LAD stent/mild aortic stenosis/mild aortic regurgitation/PAF- Continue aspirin, metoprolol succinate and lisinopril Initial troponin 20.8 with follow-up 16.9 Diabetes mellitus- Glucose 79 on admission, monitor for hypoglycemia Check hemoglobin A1c Pharmacy diabetic consult ordered BPH with LUTS- Follow urine culture and sensitivity
[2024-07-26] MEDS: LACTATED RINGER'S 500 ML IV ONE (01:07)
[2024-07-26] MEDS ORDERED: GLUCAGON FOR INJ 1 MG VIAL SQ PRN (03:31)
[2024-07-26] MEDS ORDERED: PHARMACY GLYCEMIC MGMT CONSULT PRN (03:31)
[2024-07-26] MEDS ORDERED: CARBOHYDRATES FOR HYPOGLYCEMIA PO PRN (03:31)
[2024-07-26] MEDS ORDERED: ACETAMINOPHEN 325 MG TAB PO PRN (03:31)
[2024-07-26] MEDS ORDERED: GLUCOSE 10 TAB/TUBE PO PRN (03:31)
[2024-07-26] MEDS ORDERED: GLUCOSE 40% GEL 15 GM TUBE PO PRN (03:31)
[2024-07-26] MEDS ORDERED: DEXTROSE 50% 50 ML SYRINGE IV PRN (03:31)
[2024-07-26 04:33] LABS: Basophils # (auto) 0.03 K/uL (0.00-0.20); Basophils % (auto) 0.5 %; Eosinophils % (auto) 1.6 %; Hematocrit (blood only) 37.6 % (42.0-52.0); Hemoglobin 12.8 g/dl (14.0-18.0); Immature Granulocytes # (auto) 0.03 K/uL (0.01-0.20); Immature Granulocytes % (auto) 0.5 %; Lymphocytes # (auto) 0.81 K/uL (1.20-3.40); Mean Corpuscular Hemoglobin 32.5 pg (25.0-34.0); Mean Corpuscular Volume 95.4 fL (80.0-100.0); Monocytes # (auto) 0.56 K/uL (0.11-0.59); Neutrophils % (auto) 75.4 %; Platelet Count 159 K/uL (130-400); RDW Coefficient of Variation 14.1 % (11.5-14.5); RDW Standard Deviation 49.3 fL (36.4-46.3); Red Blood Count 3.94 M/uL (4.70-6.10); White Blood Count 6.23 K/ul (4.8-10.8)
[2024-07-26 04:50] LABS: Albumin Globulin Ratio 1.6 (0.9-2); Albumin Level 3.7 gm/dl (3.4-5.0); BUN Creatinine Ratio 26.3 (10-20); Calcium 8.7 mg/dl (8.6-10.3); Creatinine Clr Calc Pharmacy 61.4 ml/min; Est GFR (African American) 81.9 ml/min; Est GFR (Non-African American) 70.7 ml/min; Globulin 2.3 gm/dl (2.5-4.0); Magnesium 1.8 mg/dl (1.7-2.4); Potassium 3.6 mmol/L (3.5-5.1)
--- NOTE | 2024-07-26 05:03 | Billing Data ---
Date of Service July 26, 2024 Coding Level of Care Code 36677 INT INP/OBS CARE
--- NOTE | 2024-07-26 06:05 | Urology Consultation ---
Date of Consultation July 26, 2024 Assessment & Plan (1) Urinary retention: The patient has been admitted on the hospitalist service.: Procedure note: Was verified that the patient was not allergic to any Betadine or latex. Then, under sterile conditions I easily placed a 16 [place] coud catheter. After placing the Arceo catheter the balloon was inflated with 10 cc of fluid and immediately drained in excess of 500 cc of clear urine. Patient tolerated this procedure well. Would recommend maintaining Arceo catheter for the present time. The primary service has ordered a urinalysis and further treatment can be undertaken accordingly based on the results of this. Recommend maintaining the Arceo catheter to promote maximal bladder drainage with a voiding trial to be attempted in a few days. It does appear that the patient does take Avodart and this medication may continue. Additional recommendations be forthcoming based on his clinical course as unfolds History of Present Illness Reason for Consultation: Urinary retention Attending Physician: Paulo Stephenson MD History of Present Illness This is an 80-year-old male who was admitted to the hospital after an unwitnessed fall. Patient has underlying history of dementia and cannot provide much in the way of meaningful history. Apparently after the patient fell there is no reported loss of consciousness. There is no reported syncope. The patient, however he did hit his head and he was admitted to the hospital for further observation. Urology was asked to consult on the patient as the patient was having inability urinate and he was bladder scanned for greater than 700 cc of urine. I did attempt to question the patient on urologic history but due to his underlying dementia he could not provide any history concerning if he has ever had urinary retention before Nursing staff tried multiple times to straight cath the patient without success. At the time of my interview with the patient he was not complaining of anything specific and he did appear somewhat confused. Allergies Allergy/AdvReac Type Severity Reaction Status Date / Time Sulfa (Sulfonamide Allergy Unknown ON [place] Verified 06/25/24 01:56 Antibiotics) MED LIST Home Medications Medication Instructions Recorded Confirmed Type cholecalciferol (vitamin D3) 25 1,000 units PO QAM 05/16/19 07/14/24 History mcg (1,000 unit) capsule aspirin 81 mg tablet,delayed 81 mg PO QAM 06/20/19 07/14/24 History release (Adult Low Dose Aspirin) vitamin B complex 1 cap PO QAM 04/05/20 07/14/24 History lisinopril 20 mg tablet 20 mg PO DAILY #90 tabs 06/05/21 07/14/24 Rx metoprolol succinate 25 mg 12.5 mg (1/2 x 25 mg) PO QAM #90 06/17/21 07/14/24 Rx tablet,extended release 24 hr tabs blood glucose control, high #1 ea 11/12/21 07/14/24 Rx (OneTouch Verio High Control solution) lancets 33 gauge (OneTouch Delica #120 ea 12/11/21 07/14/24 Rx Lancets) OneTouch Verio test strips (blood #400 ea 12/13/21 07/14/24 Rx sugar diagnostic) pen needle, diabetic 32 gauge x #400 ea 12/13/21 07/14/24 Rx 32" (BD Ultra-Fine Ros Pen Needle) insulin aspart U-100 100 unit/mL See Rx Instructions .Route .COMPLEX 05/21/22 07/14/24 History (3 mL) subcutaneous pen (Novolog FlexPen U-100 Insulin aspart) memantine 10 mg tablet 10 mg PO BID 90 days #180 tabs 07/03/22 07/14/24 Rx acetaminophen 325 mg tablet 650 mg PO Q8H PRN Pain 12/24/22 07/14/24 History (Tylenol) dutasteride 0.5 mg capsule 0.5 mg PO QAM 02/05/23 07/14/24 History mirabegron 50 mg tablet,extended 50 mg PO DAILY #30 tabs 05/27/23 07/14/24 Rx release 24 hr (Myrbetriq) methenamine hippurate 1 gram tablet 1 g PO BID #60 tabs 07/01/23 07/14/24 Rx insulin degludec 100 unit/mL (3 25 unit (0.25 mL) subcut QAM #30 mL 03/29/24 07/14/24 Rx mL) subcutaneous pen (Tresiba FlexTouch U-100 insulin) cephalexin 250 mg capsule 250 mg PO QID #20 caps 06/25/24 07/14/24 Rx furosemide 20 mg tablet 20 mg PO DAILY 06/25/24 07/14/24 History paroxetine HCl 20 mg tablet 20 mg PO DAILY 06/25/24 07/14/24 History Patient History Medical History Fall COVID-19 Dementia Closed rib fracture Chronic anticoagulation Weakness Rhabdomyolysis Right rib fracture 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 Enlarged prostate with lower urinary tract symptoms (LUTS) Other and unspecified hyperlipidemia (06/07/12) Hematospermia Myocardial infarction (06/07/12) Nontoxic multinodular goiter PND (post-nasal drip) Sepsis (06/07/12) Pancytopenia (~2000) Left shoulder strain CHI (closed head injury) Surgical History History of tonsillectomy History of cataract surgery History of arthroscopy of knee History of cystoscopy History of colonoscopy Status post Mohs surgery S/P drug eluting coronary stent placement Family History Brother Coronary heart disease Father Angina pectoris Carcinoma of pancreas Myocardial infarction Mother Congestive heart failure Breast cancer Unknown Diabetes Heart disease Hypertension Daughter Breast cancer Denies family history of Ovarian cancer Prostate cancer Colorectal cancer Social History Smoking Status: Never smoker Tobacco Type: Cigarettes Second Hand Exposure: No; Do You Dip or Chew Tobacco: No; Hx Alcohol Use: No (unable to answer) Hx Substance Use: No (unable to answer) Preferred Language: Faroese Communication Ability: Impaired Communication Ability Comment: Alert and oriented to person, periods of confusion. Visual Impairment: Limited Hearing Ability: Normal Circular Saw Filer Required: No Beliefs That Will Affect Care: None marital status: / Current Living Situation: Intermediate Current Living Situation Comment: [place] current occupational status: retired How many Children do You have: 3 Other Information That Helps Us Care for You: No Feels Safe at Home: Yes Safety Concerns: Feels Safe At This Time Childhood Exposure to Second-Hand Smoke: No caffeine: Yes Dental Care, Regularly: Yes Physical Activity Frequency: 1-2 Times per Week Seatbelt Use: always Sunscreen Use: Yes Assistive Devices: Walker Review of Systems Review of Systems: All systems reviewed & are unremarkable except as noted in HPI & below Physical Exam Constitutional: well developed and well nourished; no acute distress ENMT: Ears: no hearing impairment Respiratory: normal respiratory effort; no respiratory distress and no labored breathing Gastrointestinal (Abdomen): Abdomen is soft and nondistended. There not appear to be pain with palpation Musculoskeletal: No calf tenderness Neurologic: Patient was alert to person. He appeared to be confused to place and time. He was moving all extremities without noted focal deficits Results & Data Vital Signs (Past 12 Hours) Vital Signs Temp Pulse Pulse Resp BP BP Pulse Ox 07/26/24 03:58 36.5 C 70 18 164/90 H 94 07/26/24 03:15 07/26/24 03:11 79 07/26/24 02:03 78 16 172/93 H 96 07/26/24 01:06 79 16 07/26/24 00:30 140/89 07/26/24 00:06 81 16 07/26/24 00:00 148/82 H 07/26/24 00:00 81 17 07/25/24 23:30 137/78 07/25/24 23:30 137/78 07/25/24 23:30 137/78 07/25/24 23:30 83 15 07/25/24 23:00 83 19 07/25/24 23:00 128/71 07/25/24 22:31 107/75 07/25/24 22:31 107/75 07/25/24 22:31 107/75 07/25/24 22:31 107/75 07/25/24 22:18 85 24 07/25/24 22:03 91 H 18 07/25/24 22:00 120/80 07/25/24 22:00 120/80 07/25/24 22:00 120/80 07/25/24 22:00 120/80 07/25/24 21:45 89 20 94 07/25/24 21:30 144/74 H 07/25/24 21:30 144/74 H 07/25/24 21:27 88 17 94 07/25/24 21:09 91 H 17 07/25/24 21:00 135/84 07/25/24 21:00 135/84 07/25/24 20:48 90 22 98 07/25/24 20:30 142/78 H 07/25/24 20:30 142/78 H 07/25/24 20:30 85 22 97 07/25/24 20:15 85 22 96 07/25/24 19:57 84 07/25/24 19:48 83 19 97 07/25/24 19:38 36.9 C 87 21 122/65 93 O2 Del Method 07/26/24 03:58 Room Air 07/26/24 03:15 Room Air 07/26/24 03:11 07/26/24 02:03 07/26/24 01:06 07/26/24 00:30 07/26/24 00:06 07/26/24 00:00 07/26/24 00:00 07/25/24 23:30 07/25/24 23:30 07/25/24 23:30 07/25/24 23:30 07/25/24 23:00 07/25/24 23:00 07/25/24 22:31 07/25/24 22:31 07/25/24 22:31 07/25/24 22:31 07/25/24 22:18 07/25/24 22:03 07/25/24 22:00 07/25/24 22:00 07/25/24 22:00 07/25/24 22:00 07/25/24 21:45 07/25/24 21:30 07/25/24 21:30 07/25/24 21:27 07/25/24 21:09 07/25/24 21:00 07/25/24 21:00 07/25/24 20:48 07/25/24 20:30 07/25/24 20:30 07/25/24 20:30 07/25/24 20:15 07/25/24 19:57 07/25/24 19:48 07/25/24 19:38 Room Air PG Care Time/CCT Total # of Minutes Spent Total Time Spent with Patient: Total time spent is greater than 50% in coordination of care (as documented) at patient's floor/unit and/or counseling patient: Coding Level of Care Code 45648 INT INP/OBS CARE 2/55MIN Diagnoses Urinary retention R33.9
[2024-07-26 06:27] LABS: Appearance Urine Clear (Clear); Bacteria Urine Automated None Seen (None Seen); Bilirubin Urine Negative (Negative); Blood Urine Negative (Negative); Cast Urine Automated 0-2 /lpf (0-2); Color Urine Dark Yellow; Glucose Urine UA Negative (Negative); Ketones Urine Negative (Negative); Leukocyte Esterase Urine Trace (Negative); Nitrite Urine Negative (Negative); Protein Urine 1+ (Negative); Specific Gravity Urine 1.018 (1.000-1.030); Urobilinogen Urine Negative (Negative); WBC Urine Automated 0-5 /hpf (0-5); pH Urine 5.5 (4.5-7.5)
--- NOTE | 2024-07-26 07:44 | XRay Report ---
XR chest 1V portable CLINICAL HISTORY: fall from standing TECHNIQUE: Single frontal radiograph of the chest was obtained. Comparison: Comparison is made to chest radiograph 12/16/2023 FINDINGS: No lines and tubes are seen. The cardiomediastinal silhouette is stable. The lungs are clear. No evid ence of pleural effusion or pneumothorax. IMPRESSION: No acute chest disease. ACT 112: Negative or not required by law. Electronically signed by: Chuckie Gonzalez M.D. 07/26/2024 7:43 AM
[2024-07-26] MEDS: INSULIN ASPART PER UNIT CHARGE SC SCH (08:46)
[2024-07-26] MEDS ORDERED: FUROSEMIDE 20 MG TAB PO SCH (09:00)
[2024-07-26] MEDS: METHENAMINE HIPPURATE 1 GM TAB PO SCH (10:39)
[2024-07-26] MEDS: ASPIRIN 81 MG ECTAB PO SCH (10:40)
[2024-07-26] MEDS: VIBEGRON 75 MG TAB PO SCH (10:40)
[2024-07-26] MEDS: FINASTERIDE 5 MG TAB PO SCH (10:40)
[2024-07-26] MEDS: METOPROLOL SUCC 25MG EXT REL TAB PO SCH (10:41)
[2024-07-26] MEDS: MEMANTINE HCL 10 MG TAB PO SCH (10:41)
[2024-07-26] MEDS: CHOLECALCIFEROL 25 MCG (1000 UNITS) TAB PO SCH (10:42)
[2024-07-26] MEDS: PARoxetine HCL 20 MG TAB PO SCH (11:12)
--- NOTE | 2024-07-26 11:50 | Electrocardiogram Report ---
Test Reason : Blood Pressure : */* mmHG Vent. Rate : 83 BPM Atrial Rate : 83 BPM P-R Int : 312 ms QRS Dur : 152 ms QT Int : 408 ms P-R-T Axes : * -59 89 degrees QTcB Int : 479 ms Sinus rhythm with 1st degree A-V block Left axis deviation Left bundle branch block Abnormal ECG When compared with ECG of 25-Jun-2024 05:02, Vent. rate has increased by 31 bpm Confirmed by Mohinder Martini ([id number]) on 07/26/2024 11:50:03 AM Referred By: Confirmed By: Mohinder Martini
[2024-07-26] MEDS: LANTUS PER UNIT CHARGE SC ONE (13:04)
--- NOTE | 2024-07-26 13:46 | Pharmacy Report ---
Pharmacy Glycemic Short Note 2 - Date of Service July 26, 2024 - Glycemic Short BSG Results (Last 24 hours): 07/25/24 07/25/24 07/25/24 19:48 21:48 22:12 Glucose 79 POC Glucose 38 L* 130 H 07/25/24 07/26/24 07/26/24 22:51 04:05 08:06 Glucose 119 H POC Glucose 128 H 119 H 07/26/24 12:00 Glucose POC Glucose 172 H OUTPATIENT ANTIDIABETIC REGIMEN: * Tresiba 25 units SC qAM * Novolog 13 units SC w/ breakfast/lunch and 15 units SC w/ dinner HbA1c: 6.1% (07/07/24) ASSESSMENT: * RB is an 89 year old male admitted following a mechanical fall in which he struck his head * Patient has history of T2DM (very tightly controlled as an outpatient based on HbA1c of 6.1%) * Blood sugar in ED of 38 mg/dL, unclear if hypoglycemia was cause of fall * Will be conservative with initial insulin dosing in light of this hypoglycemia PLAN FOR INPATIENT GLYCEMIC CONTROL: * Basal insulin * Lantus 10 units SQ x 1 * Reassess in AM * Bolus insulin * NovoLog per scale ACHS or Q6hrs while NPO * Goal Range: Low 110 mg/dL - High 140 mg/dL * Correction Factor: 30 mg/dL/unit * Nutritional / Prandial insulin per carb ratio of 1 unit per 10 grams CHO consumed
--- NOTE | 2024-07-26 16:30 | Hospitalist Progress Note ---
Date of Service July 26, 2024 Assessment & Plan (1) Fall from standing: Plan: -Patient with a mechanical fall and striking his head. Not on blood thinners. Also with generalized weakness that has been progressive. -Head CT negative, cervical spine CT negative. - UA without signs of infections - Received 500 cc LR in ED -PT/OT Patient arrived hypoglycemic. based on last endocrinology note, meal time insullin dosing was supposed to be reduced, [facility] med list does not reflect this. Hypoglycemia possible cause of fall (2) Altered mental status: Plan: -Currently for his altered mental status though is hard to distinguish with his history of dementia - baseline: oriented to self and place . - UA noninfectious - Blood cultures: pending -COVID, influenza, and RSV negative. (3) Elevated troponin: Plan: -ED reports NSTEMI, troponin of 20.8 with a 2-hour repeat of 16.9. -No concern for NSTEMI at this time. -Will monitor on telemetry - no acute events. Patient denies CP (4) Type 2 diabetes mellitus: Plan: -Patient's home regimen held on admission -Patient was found to be hypoglycemic in the ED. With a glucose of 38. -Does follow with endocrinology, at last appointment 07/14 his meal time insulin dosing was supposed to be reduce to 09/26/13 and med list from [facility] does not reflect this - suspect pt will need reduction at discharge and clearly communicated with [facility] -Pharmacy diabetic management consulted. (5) BPH NOS w ur obs/LUTS: Plan: -Straight cath done bedside, unable to obtain any urine output despite 750CC on bladder scan. -Urology referral placed. - Coude catherter placed 07/26 - consider voiding trial in a few days - Continue finasertide, gemtesa and Metheanmine hippurate Plan Chronic stable medical conditions - pAfib - NSR on EKG, not on AC. continue low dose metoprolol. Monitor on tele - dementia - continue memantine Dispo: continued inpatient stay DVT proh: Alycia Attempted to call family with no response Admission and Anticipated Discharge Date Admission Date: July 26, 2024 Subjective Patient seen this afternoon - very sleep and difficulty to obtain meaningful hx from. No family present at bedside. Attempted to call son and no answer. Review of Systems Review of Systems: All systems reviewed & are unremarkable except as noted in Subjective Physical Exam Physical Exam: General: NAD, VS as above, very drowsy, falls alseep multiple times during my evaluation Resp: normal respiratory effort, lungs diminished CV: RRR, no murmur, Abd: soft, non tender, Extremities: Moves all extremities, trace LE edema Neuro: A&O x2 Skin: intact, no lesions noted Results & Data Results & Data Vital Signs (Past 12 Hours) Vital Signs Temp Pulse Pulse Resp BP Pulse Ox O2 Del Method 07/26/24 14:52 66 07/26/24 12:20 Room Air 07/26/24 11:33 36.6 C 56 L 95 Room Air 07/26/24 10:36 35.9 C L 62 120/71 93 Room Air 07/26/24 07:23 74 07/26/24 07:16 36.4 C L 68 18 127/71 94 Room Air PG Care Time/CCT Total # of Minutes Spent Total Time Spent with Patient: Total time spent is greater than 50% in coordination of care (as documented) at patient's floor/unit and/or counseling patient: Coding Level of Care Code None Diagnoses Fall from standing W19.XXXA Altered mental status R41.82 Elevated troponin R79.89 Type 2 diabetes mellitus E11.9 BPH NOS w ur obs/LUTS N40.1
[2024-07-26] MEDS: HALOPERIDOL LACTATE 5 MG/ML 1 ML VIAL IM STA (21:19)
[2024-07-27 08:06] LABS: Basophils # (auto) 0.03 K/uL (0.00-0.20); Basophils % (auto) 0.6 %; Eosinophils # (auto) 0.12 K/uL (0.00-0.50); Eosinophils % (auto) 2.4 %; Hematocrit (blood only) 35.2 % (42.0-52.0); Hemoglobin 12.3 g/dl (14.0-18.0); Immature Granulocytes # (auto) 0.02 K/uL (0.01-0.20); Immature Granulocytes % (auto) 0.4 %; Lymphocytes # (auto) 0.61 K/uL (1.20-3.40); Lymphocytes % (auto) 12.2 %; Mean Corpuscular Hemoglobin 32.8 pg (25.0-34.0); Mean Corpuscular Hgb Conc 34.9 g/dL (32.0-36.0); Mean Corpuscular Volume 93.9 fL (80.0-100.0); Mean Platelet Volume 9.5 fL (9.4-12.4); Monocytes # (auto) 0.55 K/uL (0.11-0.59); Neutrophils # (auto) 3.65 K/uL (1.40-6.50); Neutrophils % (auto) 73.4 %; Platelet Count 145 K/uL (130-400); RDW Coefficient of Variation 13.9 % (11.5-14.5); RDW Standard Deviation 47.8 fL (36.4-46.3); Red Blood Count 3.75 M/uL (4.70-6.10); White Blood Count 4.98 K/ul (4.8-10.8)
[2024-07-27 08:13] LABS: BUN Creatinine Ratio 21.2 (10-20); Calcium 8.6 mg/dl (8.6-10.3); Est GFR (African American) 89.5 ml/min; Est GFR (Non-African American) 77.3 ml/min; Potassium 3.7 mmol/L (3.5-5.1)
[2024-07-27] MEDS: PARoxetine HCL 10 MG TAB PO SCH (09:15)
[2024-07-27] MEDS: LANTUS PER UNIT CHARGE SC SCH (09:24)
--- NOTE | 2024-07-27 10:30 | Urology Progress Note ---
Date of Service July 27, 2024 Assessment & Plan (1) Urinary retention: Plan: Follow-up of urinary retention Arceo catheter placed for management of urinary retention Recommend maintain Arceo catheter for approximately 1 week Can do voiding trial while inpatient or we can arrange outpatient TOV depending on clinical course Continue supportive care and medical management per hospitalist service will sign off, please contact our service with any additional questions or concerns Admission and Anticipated Discharge Date Admission Date: July 26, 2024 Subjective Patient seen this morning. He is asleep with soft mitts on hands. Arceo catheter is draining clear yellow urine with some sediment. Review of Systems Review of Systems: Unobtainable due to cognitive status Physical Exam Constitutional: no acute distress Respiratory: no respiratory distress and no labored breathing Genitourinary: Arceo patent and draining clear yellow urine with some sediment noted Results & Data Vital Signs (Past 12 Hours) Vital Signs Temp Pulse Pulse Resp BP Pulse Ox O2 Del Method 07/27/24 08:16 36.3 C L 56 L 18 154/82 H 94 Room Air 07/27/24 08:06 Room Air 07/27/24 07:11 57 L 07/27/24 04:00 36.6 C 83 20 132/75 97 Room Air 07/26/24 23:00 36.7 C 71 18 140/81 95 Room Air PG Care Time/CCT Total # of Minutes Spent Total Time Spent with Patient: Total time spent is greater than 50% in coordination of care (as documented) at patient's floor/unit and/or counseling patient: Coding Level of Care Code 14473 SUB INP/OBS CARE 1/25MIN Diagnoses Urinary retention R33.9
--- NOTE | 2024-07-27 12:40 | Pharmacy Report ---
Pharmacy Glycemic Short Note 2 - Date of Service July 27, 2024 - Glycemic Short BSG Results (Last 24 hours): 07/26/24 07/26/24 07/27/24 16:53 20:13 07:22 Glucose 96 POC Glucose 130 H 119 H 07/27/24 07/27/24 08:27 12:13 Glucose POC Glucose 113 H 117 H OUTPATIENT ANTIDIABETIC REGIMEN: * Tresiba 25 units SC qAM * Novolog 13 units SC w/ breakfast/lunch and 15 units SC w/ dinner HbA1c: 6.1% (07/07/24) ASSESSMENT: 07/27/24: * Blood sugars reasonably controlled yesterday, ranging 119-172 mg/dL * Received 19 units of insulin (10 units of basal and 9 units of prandial/correctional bolus) * Do not anticipate any changes to glycemic regimen today 07/26/24: * RB is an 89 year old male admitted following a mechanical fall in which he struck his head * Patient has history of T2DM (very tightly controlled as an outpatient based on HbA1c of 6.1%) * Blood sugar in ED of 38 mg/dL, unclear if hypoglycemia was cause of fall * Will be conservative with initial insulin dosing in light of this hypoglycemia PLAN FOR INPATIENT GLYCEMIC CONTROL: * Basal insulin * Lantus 10 units SQ daily * Bolus insulin * NovoLog per scale ACHS or Q6hrs while NPO * Goal Range: Low 110 mg/dL - High 140 mg/dL * Correction Factor: 30 mg/dL/unit * Nutritional / Prandial insulin per carb ratio of 1 unit per 10 grams CHO consumed
--- NOTE | 2024-07-27 15:52 | Hospitalist Progress Note ---
Date of Service July 27, 2024 Assessment & Plan (1) Fall from standing: Plan: -Patient with a mechanical fall and striking his head. Not on blood thinners. Also with generalized weakness that has been progressive. -Head CT negative, cervical spine CT negative. - UA without signs of infections - Received 500 cc LR in ED -PT/OT - recommending rehab, family agreeable - CM following (2) Type 2 diabetes mellitus: Plan: -Patient's home regimen held on admission. A1c 6.1 -Patient was found to be hypoglycemic in the ED. With a glucose of 38. -Does follow with endocrinology, at last appointment 07/14 his meal time insulin dosing was supposed to be reduce to 09/26/13 and med list from [facility] does not reflect this. Per discussion with family there have been issues with insulin and frequent hypoglycemia at [facility]. -Pharmacy diabetic management consulted - discussed more conservative management to limit hypoglycemia (family is agreeable) *make sure new regiment is well communicated at discharge (3) Altered mental status: Plan: - baseline: oriented to self and place . - UA noninfectious - Blood cultures: no growth at 24 hours -COVID, influenza, and RSV negative. Issues overnight 07/26 with combative behavior and required haldol and mitts - family reports behavioral disturbances were part of the reason he was started on Paxil - agreeable to low dose Seroquel (4) BPH NOS w ur obs/LUTS: Plan: -Straight cath done bedside, unable to obtain any urine output despite 750CC on bladder scan. -Urology referral placed. - Coude catherter placed 07/26, recommend balderrama remain in place for 1 week then can try voiding trial - Continue finasteride, gemtesa and Metheanmine hippurate (5) Elevated troponin: Plan: -ED reports NSTEMI, troponin of 20.8 with a 2-hour repeat of 16.9. -No concern for NSTEMI at this time. -Will monitor on telemetry - no acute events. Patient denies CP Plan Chronic stable medical conditions - pAfib - NSR on EKG, not on AC. continue low dose metoprolol. has been sinus on tele. - dementia - continue memantine Dispo: continued inpatient stay, downgraded to medical DVT proh: Alycia family updated extensively 07/27 Admission and Anticipated Discharge Date Admission Date: July 26, 2024 Subjective patient seen sitting in bed. Much more alert today and able to answer some my questions appropriately. Reports some right knee pain but otherwise no concerns. Was in mitts during the time of my encounter but we will attempt to remove these Long discussion with son todayTerry has been declining physically and mentally over the last 6 months. Was moved to the memory unit at [facility] in the beginning of summer and has continued to decline. They have had a lot of issues with staffing at [facility] and managing his blood sugars patient has a [employer] william monitor and they have noticed many lows when insulin was giving at potentially improper at times. (I.e. before therapy without eating). family is agreeable to transition to a more liberal management of his diabetes to limit hypoglycemia. is son relays to me that Terry likely has underlying bladder cancer, that they have decided not to further pursue. I discussed with them that it seems as if they are already focusing on [facility] quality of life rather than quantity and how these beliefs align with hospice and hospice could be considered after discharge from rehab for additional help back at [facility]. telemetry sinus rhythm with a first-degree AV block 50s and 60s Review of Systems Review of Systems: All systems reviewed & are unremarkable except as noted in Subjective Physical Exam Physical Exam: General: NAD, VS as above, much more alert today Resp: normal respiratory effort, lungs diminished CV: RRR, no murmur, Abd: soft, non tender, : balderrama intact during a dark yellow urine Extremities: Moves all extremities, trace LE edema Neuro: A&O x2 Skin: intact, no lesions noted Results & Data Results & Data Vital Signs (Past 12 Hours) Vital Signs Temp Pulse Pulse Resp BP Pulse Ox O2 Del Method 07/27/24 14:59 37.0 C 60 20 148/72 H 95 Room Air 07/27/24 11:32 36.7 C 60 20 151/83 H 95 Room Air 07/27/24 08:16 36.3 C L 56 L 18 154/82 H 94 Room Air 07/27/24 08:06 Room Air 07/27/24 07:11 57 L 07/27/24 04:00 36.6 C 83 20 132/75 97 Room Air Laboratory Results CBC and chemistry reviewed Blood glucose level [id number] reviewed PG Care Time/CCT Total # of Minutes Spent Total Time Spent with Patient: Total time spent is greater than 50% in coordination of care (as documented) at patient's floor/unit and/or counseling patient: Coding Level of Care Code 83837 SUB INP/OBS CARE 3/50MIN Diagnoses Fall from standing W19.XXXA Type 2 diabetes mellitus E11.9 Altered mental status R41.82 BPH NOS w ur obs/LUTS N40.1 Elevated troponin R79.89
[2024-07-27] MEDS: QUEtiapine FUMARATE 25 MG TABLET PO SCH (21:22)
[2024-07-27] MEDS: ONDANSETRON INJ 2 MG/ML 2 ML VIAL IV PRN (22:46)
[2024-07-27] MEDS: HALOPERIDOL LACTATE 5 MG/ML 1 ML VIAL IM STA (23:30)
--- NOTE | 2024-07-28 09:35 | Hospitalist Progress Note ---
Date of Service July 28, 2024 Assessment & Plan (1) Fall from standing: Plan: -Patient with a mechanical fall and striking his head. Not on blood thinners. Also with generalized weakness that has been progressive. -Head CT negative, cervical spine CT negative. - UA without signs of infections - Received 500 cc LR in ED -PT/OT - recommending rehab, family agreeable - CM following (2) Type 2 diabetes mellitus: Plan: -Patient's home regimen held on admission. A1c 6.1 -Patient was found to be hypoglycemic in the ED. With a glucose of 38. -Does follow with endocrinology, at last appointment 07/14 his meal time insulin dosing was supposed to be reduce to 09/26/13 and med list from [facility] does not reflect this. Per discussion with family there have been issues with insulin and frequent hypoglycemia at [facility]. -Pharmacy diabetic management consulted - discussed more conservative management to limit hypoglycemia (family is agreeable) *make sure new regiment is well communicated at discharge (3) Altered mental status: Plan: - baseline: oriented to self and place . - UA noninfectious - Blood cultures: no growth at 24 hours -COVID, influenza, and RSV negative. Issues overnight with combative behavior and required haldol and restraints - family reports behavioral disturbances were part of the reason he was started on Paxil - will increase seroquel to 25mg (4) BPH NOS w ur obs/LUTS: Plan: -Straight cath done bedside, unable to obtain any urine output despite 750CC on bladder scan. -Urology referral placed. - Coude catherter placed 07/26, recommend balderrama remain in place for 1 week then can try voiding trial - Continue finasteride, gemtesa and Metheanmine hippurate (5) Elevated troponin: Plan: -ED reports NSTEMI, troponin of 20.8 with a 2-hour repeat of 16.9. -No concern for NSTEMI at this time. -Will monitor on telemetry - no acute events. Patient denies CP Plan Chronic stable medical conditions - pAfib - NSR on EKG, not on AC. continue low dose metoprolol. has been sinus on tele. - dementia - continue memantine Dispo: continued inpatient stay, DVT proh: Alycia family updated extensively 07/27 Admission and Anticipated Discharge Date Admission Date: July 27, 2024 Subjective Patient seen sitting up in bed, out of restraints. No family present at bedside. Patient trying to get out of bed to go to the bathroom, explained multiple times that he had a catheter in place. Eventually he was redirectable to try to eat breakfast No acute complaints Review of Systems Review of Systems: Unobtainable due to cognitive status Physical Exam Physical Exam: General: NAD, VS as above, much more alert today Resp: normal respiratory effort, lungs diminished CV: RRR, no murmur, Abd: soft, non tender, : balderrama intact during a dark yellow urine Extremities: Moves all extremities, trace LE edema Neuro: A&O x1 Skin: intact, no lesions noted Results & Data Results & Data Vital Signs (Past 12 Hours) Vital Signs Temp Pulse Resp BP Pulse Ox O2 Del Method 07/28/24 09:22 Room Air 07/28/24 08:12 36.0 C L 66 18 172/82 H 94 Room Air Laboratory Results POC glucose reviewed PG Care Time/CCT Total # of Minutes Spent Total Time Spent with Patient: Total time spent is greater than 50% in coordination of care (as documented) at patient's floor/unit and/or counseling patient: Coding Level of Care Code 98081 SUB INP/OBS CARE 2/35MIN Diagnoses Fall from standing W19.XXXA Type 2 diabetes mellitus E11.9 Altered mental status R41.82 BPH NOS w ur obs/LUTS N40.1 Elevated troponin R79.89
[2024-07-28] MEDS: QUEtiapine FUMARATE 25 MG TABLET PO SCH (20:29)
[2024-07-29] MEDS: LANTUS PER UNIT CHARGE SC SCH (12:26)
--- NOTE | 2024-07-29 13:12 | Pharmacy Report ---
Pharmacy Glycemic Short Note 2 - Date of Service July 29, 2024 - Glycemic Short BSG Results (Last 24 hours): 07/28/24 07/28/24 07/29/24 16:49 20:30 08:29 POC Glucose 123 H 103 H 113 H 07/29/24 11:42 POC Glucose 162 H OUTPATIENT ANTIDIABETIC REGIMEN: * Tresiba 25 units SC qAM * Novolog 13 units SC w/ breakfast/lunch and 15 units SC w/ dinner HbA1c: 6.1% (07/07/24) ASSESSMENT: 07/29/24: * Blood sugars remain well-controlled * Discussed with hospitalist SUJEY on 07/27 and plan is for conservative insulin dosing * Plan is for rehab on discharge 07/27/24: * Blood sugars reasonably controlled yesterday, ranging 119-172 mg/dL * Received 19 units of insulin (10 units of basal and 9 units of prandial/correctional bolus) * Do not anticipate any changes to glycemic regimen today 07/26/24: * RB is an 89 year old male admitted following a mechanical fall in which he struck his head * Patient has history of T2DM (very tightly controlled as an outpatient based on HbA1c of 6.1%) * Blood sugar in ED of 38 mg/dL, unclear if hypoglycemia was cause of fall * Will be conservative with initial insulin dosing in light of this hypoglycemia PLAN FOR INPATIENT GLYCEMIC CONTROL: * Basal insulin * Lantus 5 units SQ daily * Bolus insulin * NovoLog per scale ACHS or Q6hrs while NPO * Goal Range: Low 110 mg/dL - High 140 mg/dL * Correction Factor: 35 mg/dL/unit * Nutritional / Prandial insulin per carb ratio of 1 unit per 12 grams CHO consumed
--- NOTE | 2024-07-29 14:25 | Hospitalist Progress Note ---
Date of Service July 29, 2024 Assessment & Plan (1) Fall from standing: Plan: -Patient with a mechanical fall and striking his head. Not on blood thinners. Also with generalized weakness that has been progressive. -Head CT negative, cervical spine CT negative. - UA without signs of infections - Received 500 cc LR in ED -PT/OT - recommending rehab, family agreeable - CM following - referrals pending for rehab (2) Type 2 diabetes mellitus: Plan: -Patient's home regimen held on admission. A1c 6.1 -Patient was found to be hypoglycemic in the ED. With a glucose of 38. -Does follow with endocrinology, at last appointment 07/14 his meal time insulin dosing was supposed to be reduce to 09/26/13 and med list from [facility] does not reflect this. Per discussion with family there have been issues with insulin and frequent hypoglycemia at [facility]. -Pharmacy diabetic management consulted - discussed more conservative management to limit hypoglycemia (family is agreeable) - insulin has been further reduced, appetite/p.o. intake has been poor *make sure new regiment is well communicated at discharge - suspect would do best with lantus + meal time insulin with the qualifier for [facility] home only to give if BSG is above certain number (?150) (3) Altered mental status: Plan: - baseline: oriented to self and place . - UA noninfectious - Blood cultures: no growth at 24 hours -COVID, influenza, and RSV negative. Issues overnight 07/26 with combative behavior and required haldol and restraints - family reports behavioral disturbances were part of the reason he was started on Paxil - continue seroquel to 25mg (4) BPH NOS w ur obs/LUTS: Plan: -Straight cath done bedside, unable to obtain any urine output despite 750CC on bladder scan. -Urology referral placed. - Coude catherter placed 07/26, recommend balderrama remain in place for 1 week then can try voiding trial - Continue finasteride, gemtesa and Metheanmine hippurate (5) Elevated troponin: Plan: -ED reports NSTEMI, troponin of 20.8 with a 2-hour repeat of 16.9. -No concern for NSTEMI at this time. -Will monitor on telemetry - no acute events. Patient denies CP Plan Chronic stable medical conditions - pAfib - NSR on EKG, not on AC. continue low dose metoprolol. had been sinus on tele. - dementia - continue memantine - HTN - lisinopril previously held plan to resume for a.m. 07/30 Dispo: continued inpatient stay, DVT proh: Alycia bowles updated extensively 07/27 & 07/29 Admission and Anticipated Discharge Date Admission Date: July 27, 2024 Subjective Patient seen earlier this morning, resting in bed. States that he is tired. Denies any acute complaints or having pain anywhere. I spoke with family today, discussed that Terry would likely not do well at [facility] as he does not have the stamina for 3 hours of therapy a day. We discussed SNF rehab or home health therapy while at a personal [facility]. They were concerned about his current mental state and the lack of long-term memory and we discussed the progression of dementia. No signs of acute infection or other acute process at this time. Review of Systems Review of Systems: All systems reviewed & are unremarkable except as noted in Subjective Physical Exam Physical Exam: General: NAD, VS as above, Awakes to stimuli but falls asleep quickly Resp: normal respiratory effort, lungs diminished in the bases CV: RRR, no murmur, Abd: soft, non tender, : balderrama intact during a dark yellow urine Extremities: Moves all extremities, trace LE edema Neuro: A&O x1 Skin: intact, no lesions noted Results & Data Results & Data Vital Signs (Past 12 Hours) Vital Signs Temp Pulse Resp BP BP Pulse Ox O2 Del Method 07/29/24 12:02 37.0 C 70 18 131/66 94 Room Air 07/29/24 10:43 Room Air 07/29/24 08:10 36.6 C 73 18 129/73 98 Room Air Laboratory Results [id number] glucose reviewed PG Care Time/CCT Total # of Minutes Spent Total Time Spent with Patient: Total time spent is greater than 50% in coordination of care (as documented) at patient's floor/unit and/or counseling patient: Coding Level of Care Code 57956 SUB INP/OBS CARE 2/35MIN Diagnoses Fall from standing W19.XXXA Type 2 diabetes mellitus E11.9 Altered mental status R41.82 BPH NOS w ur obs/LUTS N40.1 Elevated troponin R79.89
[2024-07-30] MEDS: lisinopril 20 MG TAB PO SCH (08:27)
[2024-07-30] MEDS: LANTUS PER UNIT CHARGE SC SCH (08:50)
--- NOTE | 2024-07-30 11:26 | Hospitalist Progress Note ---
Date of Service July 30, 2024 Assessment & Plan (1) Fall from standing: Plan: -Patient with a mechanical fall and striking his head. Not on blood thinners. Also with generalized weakness that has been progressive. -Head CT negative, cervical spine CT negative. - UA without signs of infections - Received 500 cc LR in ED -PT/OT - recommending rehab, family agreeable - CM following - referrals pending for rehab (2) Type 2 diabetes mellitus: Plan: -Patient's home regimen held on admission. A1c 6.1 -Patient was found to be hypoglycemic in the ED. With a glucose of 38. -Does follow with endocrinology, at last appointment 07/14 his meal time insulin dosing was supposed to be reduce to 09/26/13 and med list from [facility] does not reflect this. Per discussion with family there have been issues with insulin and frequent hypoglycemia at [place]. -Pharmacy diabetic management consulted - discussed more conservative management to limit hypoglycemia (family is agreeable) - insulin has been further reduced, appetite/p.o. intake has been poor *make sure new regiment is well communicated at discharge - suspect would do best with lantus + meal time insulin with the qualifier for [facility] home only to give if BSG is above certain number (?150) (3) Altered mental status: Plan: - baseline: oriented to self and place . - UA noninfectious - Blood cultures: no growth at 24 hours -COVID, influenza, and RSV negative. Issues overnight 07/26 with combative behavior and required haldol and restraints - family reports behavioral disturbances were part of the reason he was started on Paxil - continue seroquel to 25mg (4) BPH NOS w ur obs/LUTS: Plan: -Straight cath done bedside, unable to obtain any urine output despite 750CC on bladder scan. -Urology referral placed. - Coude catherter placed 07/26, recommend balderrama remain in place for 1 week then can try voiding trial - Continue finasteride, gemtesa and Metheanmine hippurate Urine culture: pending (5) Elevated troponin: Plan: -ED reports NSTEMI, troponin of 20.8 with a 2-hour repeat of 16.9. -No concern for NSTEMI at this time. -Will monitor on telemetry - no acute events. Patient denies CP Plan Chronic stable medical conditions - pAfib - NSR on EKG, not on AC. continue low dose metoprolol. had been sinus on tele. - dementia - continue memantine - HTN - lisinopril previously held plan to resume for a.m. 07/30 Dispo: continued inpatient stay, DVT proh: Alycia family updated extensively 07/27 & 07/29 Admission and Anticipated Discharge Date Admission Date: July 27, 2024 Subjective patient lying in bed, sleeping on my arrival. Does awaken when I am in the room. No family at bedside. He states he feels well, denies pain. No acute complaints Review of Systems Review of Systems: All systems reviewed & are unremarkable except as noted in Subjective Physical Exam Physical Exam: General: NAD, VS as above, Awakes to stimuli but falls asleep quickly Resp: normal respiratory effort, lungs diminished in the bases CV: RRR, no murmur, Abd: soft, non tender, : balderrama intact during a dark yellow urine Extremities: Moves all extremities,no edema Neuro: A&O x1 Skin: intact, no lesions noted Results & Data Results & Data Vital Signs (Past 12 Hours) Vital Signs Temp Pulse Resp BP Pulse Ox O2 Del Method 07/30/24 07:41 97.5 F L 67 18 126/66 92 Room Air Laboratory Results [id number] blood glucose reviewed PG Care Time/CCT Total # of Minutes Spent Total Time Spent with Patient: Total time spent is greater than 50% in coordination of care (as documented) at patient's floor/unit and/or counseling patient: Coding Level of Care Code 91223 SUB INP/OBS CARE 2/35MIN Diagnoses Fall from standing W19.XXXA Type 2 diabetes mellitus E11.9 Altered mental status R41.82 BPH NOS w ur obs/LUTS N40.1 Elevated troponin R79.89
[2024-07-31] MEDS: LANTUS PER UNIT CHARGE SC SCH (08:27)
--- NOTE | 2024-07-31 13:05 | Hospitalist Progress Note ---
Date of Service July 31, 2024 Assessment & Plan (1) Fall from standing: Plan: -Patient with a mechanical fall and striking his head. Not on blood thinners. Also with generalized weakness that has been progressive. -Head CT negative, cervical spine CT negative. - UA without signs of infections - Received 500 cc LR in ED -PT/OT - recommending rehab, family agreeable - CM following - referrals pending for rehab (2) Type 2 diabetes mellitus: Plan: -Patient's home regimen held on admission. A1c 6.1 -Patient was found to be hypoglycemic in the ED. With a glucose of 38. -Does follow with endocrinology, at last appointment 07/14 his meal time insulin dosing was supposed to be reduce to 09/26/13 and med list from [facility] does not reflect this. Per discussion with family there have been issues with insulin and frequent hypoglycemia at [place]. -Pharmacy diabetic management consulted - discussed more conservative management to limit hypoglycemia (family is agreeable) - insulin has been further reduced, appetite/p.o. intake has been poor *make sure new regiment is well communicated at discharge - suspect would do best with lantus + meal time insulin with the qualifier for [facility] home only to give if BSG is above certain number (?150) higher sugars today, pharmacy managing. also with increase appetite (3) Altered mental status: Plan: - baseline: oriented to self and place . - UA noninfectious - Blood cultures: no growth at 24 hours -COVID, influenza, and RSV negative. Issues overnight 07/26 with combative behavior and required haldol and restraints - family reports behavioral disturbances were part of the reason he was started on Paxil - continue seroquel to 25mg (4) BPH NOS w ur obs/LUTS: Plan: -Straight cath done bedside, unable to obtain any urine output despite 750CC on bladder scan. -Urology referral placed. - Coude catheter placed 07/26, recommend balderrama remain in place for 1 week then can try voiding trial - Continue finasteride, gemtesa and Metheanmine hippurate Urine culture: no growth, preliminary (5) Elevated troponin: Plan: -ED reports NSTEMI, troponin of 20.8 with a 2-hour repeat of 16.9. -No concern for NSTEMI at this time. -Will monitor on telemetry - no acute events. Patient denies CP Plan Chronic stable medical conditions - pAfib - NSR on EKG, not on AC. continue low dose metoprolol. had been sinus on tele. - dementia - continue memantine - HTN - lisinopril previously held plan to resume for a.m. 07/30 Dispo: continued inpatient stay, DVT proh: Alycia bowles updated extensively 07/27 & 07/29 Admission and Anticipated Discharge Date Admission Date: July 27, 2024 Subjective Patient sititng up in bed, ate most of his breakfast slightly more awake and alert today able to hold lmore of a conversation, denies pain Review of Systems Review of Systems: All systems reviewed & are unremarkable except as noted in Subjective Physical Exam Physical Exam: General: NAD, VS as above, more alert today Resp: normal respiratory effort, lungs diminished in the bases CV: RRR, no murmur, Abd: soft, non tender, : balderrama intact during a dark yellow urine Extremities: Moves all extremities,no edema Neuro: A&O x1 Skin: intact, no lesions noted Results & Data Results & Data Vital Signs (Past 12 Hours) Vital Signs Temp Pulse Resp BP Pulse Ox O2 Del Method 07/31/24 07:25 Room Air 07/31/24 07:02 98.2 F 72 16 158/74 H 92 Room Air Laboratory Results POC glucose reviewed PG Care Time/CCT Total # of Minutes Spent Total Time Spent with Patient: Total time spent is greater than 50% in coordination of care (as documented) at patient's floor/unit and/or counseling patient: Coding Level of Care Code 21804 SUB INP/OBS CARE 2/35MIN Diagnoses Fall from standing W19.XXXA Type 2 diabetes mellitus E11.9 Altered mental status R41.82 BPH NOS w ur obs/LUTS N40.1 Elevated troponin R79.89
--- NOTE | 2024-08-01 11:43 | Hospitalist Progress Note ---
Date of Service August 01, 2024 Assessment & Plan (1) Fall from standing: Plan: -Patient with a mechanical fall and striking his head. Not on blood thinners. Also with generalized weakness that has been progressive. -Head CT negative, cervical spine CT negative. - UA without signs of infections - Received 500 cc LR in ED -PT/OT - recommending rehab, family agreeable - CM following - referrals pending for rehab Repeat CBC, BMP 08/01: stable Repeat CXR 08/01: cardiomegaly and mild pulmonary vascular congestion w/o overt edema. Added Mucinex BID for patient's cough 08/01 AM CBC, BMP (2) Type 2 diabetes mellitus: Plan: -Patient's home regimen held on admission. A1c 6.1 -Patient was found to be hypoglycemic in the ED. With a glucose of 38. -Does follow with endocrinology, at last appointment 07/14 his meal time insulin dosing was supposed to be reduce to 09/26/13 and med list from [facility] does not reflect this. Per discussion with family there have been issues with insulin and frequent hypoglycemia at [place]. -Pharmacy diabetic management consulted - discussed more conservative management to limit hypoglycemia (family is agreeable) - insulin has been further reduced, appetite/p.o. intake has been poor *make sure new regiment is well communicated at discharge - suspect would do best with lantus + meal time insulin with the qualifier for [facility] home only to give if BSG is above certain number (?150) higher sugars today, pharmacy managing. also with increase appetite (3) Altered mental status: Plan: - baseline: oriented to self and place . - UA noninfectious - Blood cultures: no growth at 24 hours -COVID, influenza, and RSV negative. Issues overnight 07/26 with combative behavior and required haldol and restraints - family reports behavioral disturbances were part of the reason he was started on Paxil - continue seroquel to 25mg (4) BPH NOS w ur obs/LUTS: Plan: -Straight cath done bedside, unable to obtain any urine output despite 750CC on bladder scan. -Urology referral placed. - Coude catheter placed 07/26, recommend balderrama remain in place for 1 week then can try voiding trial - Continue finasteride, gemtesa and Metheanmine hippurate Urine culture: no growth, preliminary (5) Elevated troponin: Plan: -ED reports NSTEMI, troponin of 20.8 with a 2-hour repeat of 16.9. -No concern for NSTEMI at this time. -Will monitor on telemetry - no acute events. Patient denies CP Plan Speech therapy recommendations: soft bite size diet w/ thin liquids. assistance w/ all intake. Chronic stable medical conditions - pAfib - NSR on EKG, not on AC. continue low dose metoprolol. had been sinus on tele. - dementia - continue memantine - HTN - lisinopril previously held plan to resume for a.m. 07/30 Dispo: continued inpatient stay, DVT proh: Alycia family updated extensively 08/01 Admission and Anticipated Discharge Date Admission Date: July 27, 2024 Subjective Patient seen and examined with family at bedside. Patient minimally verbal at time of encounter. Responds to family. Patient had episode of choking at lunch and was coughing. Patient's family reports his cough has been different recently. They feel it is more productive. Patient's family also notes his decline started when he was placed on Paxil following sexual behavior at the memory care unit. Patient's family reports it has been a continuous slow decline since then. Physical Exam 2 Physical Exam: General: NAD, VS as above, more alert today Resp: normal respiratory effort, lungs diminished in the bases CV: RRR, no murmur, Abd: soft, non tender, : balderrama intact during a dark yellow urine Extremities: Moves all extremities,no edema Neuro: A&O x1 Skin: intact, no lesions noted Results & Data Results & Data Vital Signs (Past 12 Hours) Vital Signs Temp Pulse Resp BP Pulse Ox O2 Del Method 08/01/24 07:53 36.5 C 77 20 132/77 95 Room Air 08/01/24 07:28 Room Air Laboratory Results 08/01/24 12:11 08/01/24 12:11 PG Care Time/CCT Total # of Minutes Spent Total Time Spent with Patient: Total time spent is greater than 50% in coordination of care (as documented) at patient's floor/unit and/or counseling patient: Coding Level of Care Code 08152 SUB INP/OBS CARE 3/50MIN Diagnoses Fall from standing W19.XXXA Type 2 diabetes mellitus E11.9 Altered mental status R41.82 BPH NOS w ur obs/LUTS N40.1 Elevated troponin R79.89
--- NOTE | 2024-08-01 11:53 | XRay Report ---
XR chest 1V portable HISTORY: cough COMPARISON: Chest 07/25/2024. FINDINGS: There are low lung volumes. The cardiac silhouette remains mildly enlarged. There is mild c entral pulmonary vascular congestion without overt edema. No new focal lung consolidations to suggest a pneumonia. No pneumothorax. No pleural effusions. Old, healed left-sided rib fractures. IMPRESSION: Cardiomegaly and mild pulmonary vascular congestion without overt edema. ACT 112: Negative or not required by law. Electronically signed by: Tyrone Sagastume M.D. 08/01/2024 11:51 AM
[2024-08-01 12:32] LABS: Basophils # (auto) 0.02 K/uL (0.00-0.20); Basophils % (auto) 0.2 %; Eosinophils # (auto) 0.06 K/uL (0.00-0.50); Eosinophils % (auto) 0.7 %; Hemoglobin 13.8 g/dl (14.0-18.0); Immature Granulocytes # (auto) 0.04 K/uL (0.01-0.20); Immature Granulocytes % (auto) 0.5 %; Lymphocytes # (auto) 0.59 K/uL (1.20-3.40); Lymphocytes % (auto) 7.3 %; Mean Corpuscular Hemoglobin 32.6 pg (25.0-34.0); Mean Corpuscular Hgb Conc 34.5 g/dL (32.0-36.0); Mean Corpuscular Volume 94.6 fL (80.0-100.0); Mean Platelet Volume 9.6 fL (9.4-12.4); Monocytes # (auto) 0.86 K/uL (0.11-0.59); Monocytes % (auto) 10.7 %; Neutrophils # (auto) 6.49 K/uL (1.40-6.50); Neutrophils % (auto) 80.6 %; Platelet Count 219 K/uL (130-400); RDW Standard Deviation 48.2 fL (36.4-46.3); Red Blood Count 4.23 M/uL (4.70-6.10); White Blood Count 8.06 K/ul (4.8-10.8)
[2024-08-01 12:48] LABS: BUN Creatinine Ratio 40.4 (10-20); Calcium 9.4 mg/dl (8.6-10.3); Est GFR (African American) 69.4 ml/min; Est GFR (Non-African American) 59.9 ml/min
--- NOTE | 2024-08-01 12:51 | Pharmacy Report ---
Pharmacy Glycemic Short Note 2 - Date of Service August 01, 2024 - Glycemic Short BSG Results (Last 24 hours): 07/31/24 07/31/24 08/01/24 16:38 20:56 07:48 Glucose POC Glucose 274 H 163 H 208 H 08/01/24 08/01/24 11:43 12:11 Glucose 267 H POC Glucose 251 H OUTPATIENT ANTIDIABETIC REGIMEN: * Tresiba 25 units SC qAM * Novolog 13 units SC w/ breakfast/lunch and 15 units SC w/ dinner HbA1c: 6.1% (07/07/24) ASSESSMENT: 08/01: * BSGs [phone]/dL the last 24h. Received 10 units of basal and 23 units of bolus insulin yesterday. * Stressors stable. Conservative insulin dosing per below. * Continue same Lantus dose/Novolog parameters. 07/29/24: * Blood sugars remain well-controlled * Discussed with hospitalist SUJEY on 07/27 and plan is for conservative insulin dosing * Plan is for rehab on discharge 07/27/24: * Blood sugars reasonably controlled yesterday, ranging 119-172 mg/dL * Received 19 units of insulin (10 units of basal and 9 units of prandial/c orrectional bolus) * Do not anticipate any changes to glycemic regimen today 07/26/24: * RB is an 89 year old male admitted following a mechanical fall in which he struck his head * Patient has history of T2DM (very tightly controlled as an outpatient based on HbA1c of 6.1%) * Blood sugar in ED of 38 mg/dL, unclear if hypoglycemia was cause of fall * Will be conservative with initial insulin dosing in light of this hypoglycemia PLAN FOR INPATIENT GLYCEMIC CONTROL: * Basal insulin * Lantus 10 units SQ daily * Bolus insulin * NovoLog per scale ACHS or Q6hrs while NPO * Goal Range: Low 110 mg/dL - High 140 mg/dL * Correction Factor: 35 mg/dL/unit * Nutritional / Prandial insulin per carb ratio of 1 unit per 8 grams CHO consumed
[2024-08-01] MEDS: guaiFENesin 600 MG TABCR PO SCH (16:38)
[2024-08-02 07:07] LABS: Hematocrit (blood only) 38.2 % (42.0-52.0); Hemoglobin 13.5 g/dl (14.0-18.0); Mean Corpuscular Hemoglobin 33.1 pg (25.0-34.0); Mean Corpuscular Hgb Conc 35.3 g/dL (32.0-36.0); Mean Corpuscular Volume 93.6 fL (80.0-100.0); Mean Platelet Volume 9.5 fL (9.4-12.4); Platelet Count 217 K/uL (130-400); RDW Coefficient of Variation 13.8 % (11.5-14.5); RDW Standard Deviation 47.2 fL (36.4-46.3); Red Blood Count 4.08 M/uL (4.70-6.10); White Blood Count 5.75 K/ul (4.8-10.8)
[2024-08-02 07:08] VITALS: BP 162/85; PULSE 67; RESP 18; TEMP 97.9; O2SAT 96
[2024-08-02 07:20] LABS: BUN Creatinine Ratio 44.7 (10-20); Calcium 9.3 mg/dl (8.6-10.3); Creatinine Clr Calc Pharmacy 50.7 ml/min; Est GFR (African American) 65.7 ml/min; Est GFR (Non-African American) 56.7 ml/min; Potassium 4.1 mmol/L (3.5-5.1)
[2024-08-02] MEDS: LANTUS PER UNIT CHARGE SC SCH (09:23)
--- NOTE | 2024-08-02 12:20 | Discharge Summary ---
Discharge Summary Date of Service August 02, 2024 Principal Dx & Hospital Course #1 = Principal Diagnosis (1) Fall from standing: -Patient with a mechanical fall and striking his head. Not on blood thinners. Patient also had generalized weakness that has been progressive. Head CT negative and cervical spine CT negative. UA w/o signs of infection. He was given 500cc LR in ED. PT/OT recommended rehab which patient was discharged too. Patient had repeat CBC/BMP 08/02 that was stable. Repeat CXR 08/01 revealed cardiomegaly & mild pulmonary vascular congestion w/o overt edema. Patient added Mucinex BID 08/01 for upper respiratory cough/congestion. (2) Type 2 diabetes mellitus: -Patient's home regimen held on admission. A1c 6.1 -Patient was found to be hypoglycemic in the ED. With a glucose of 38. -Does follow with endocrinology, at last appointment 07/14 his meal time insulin dosing was supposed to be reduce to 09/26/13 and med list from [place] does not reflect this. Per discussion with family there have been issues with insulin and frequent hypoglycemia at [place]. -Pharmacy diabetic management consulted - discussed more conservative management to limit hypoglycemia (family is agreeable) - insulin has been further reduced, appetite/p.o. intake has been poor *make sure new regiment is well communicated at discharge - suspect would do best with lantus + meal time insulin with the qualifier for [facility] home only to give if BSG is above certain number (?150) Discussed w/ family and they are agreeable to sliding scale insulin + lantus Lantus 10 units SQ daily Novolog per scale ACHS or Q6h while NPO Goal 110-140mg/dL CF: 35 mg/dl/unit Carb ratio 1 unit per 8 grams CHO consumed. (3) Altered mental status: - baseline: oriented to self and place . - UA noninfectious - Blood cultures: no growth at 24 hours -COVID, influenza, and RSV negative. Issues overnight 07/26 with combative behavior and required haldol and restraints - family reports behavioral disturbances were part of the reason he was started on Paxil - continue seroquel to 25mg (4) BPH NOS w ur obs/LUTS: -Straight cath done bedside, unable to obtain any urine output despite 750CC on bladder scan. -Urology referral placed - Coude catheter placed 07/26, recommend balderrama remain in place for 1 week then can try voiding trial - this will be arranged at his rehab facility - Continue finasteride, gemtesa and Metheanmine hippurate Urine culture: no growth (5) Elevated troponin: -ED reports NSTEMI, troponin of 20.8 with a 2-hour repeat of 16.9. -No concern for NSTEMI at this time. - Patient denies chest pain Plan Speech therapy recommendations: soft bite size diet w/ thin liquids. assistance w/ all intake. Chronic stable medical conditions - pAfib - NSR on EKG, not on AC. continue low dose metoprolol. had been sinus on tele. - dementia - continue memantine - HTN - lisinopril previously held plan to resume for a.m. 07/30 Spoke with patient's son via phone regarding discharge instructions 08/02 Admission HPI Per Admitting Provider Patient is an 89-year-old male with past medical history including lower extremity edema, paroxysmal atrial fibrillation, dyslipidemia, BPH with LUTS, diabetes mellitus, dementia, diabetic nephropathy, diabetic peripheral neuropathy, LBBB, presence of LAD stent, chronic prostatitis, mild aortic stenosis, mild aortic regurgitation, and laryngeal pharyngeal reflux. He presents to the hospital from [facility] for unwitnessed fall. He did strike his head. Denies loss of consciousness. Not currently on any blood thinners. States that he fell by losing his footing and did not have a syncopal event. Denies any chest pain, shortness of breath, or abdominal pain. Denies any headache. Denies any numbness and tingling in his extremities. With discussion with the patient, patient has a history of dementia and is only alert and oriented to self. Family was not bedside at time of admission. Did discuss with nursing who states that family was concerned that he has been more confused than normal he over the past couple days. He is also been having a cough for the last 3 weeks. And they have noticed that he is also been unsteady on his feet and having ambulatory dysfunction since Thursday. Discharge Exam General: NAD, VS as above, more alert today Resp: normal respiratory effort, lungs diminished in the bases CV: RRR, no murmur, Abd: soft, non tender, : balderrama intact during a dark yellow urine Extremities: Moves all extremities,no edema Neuro: A&O x1 Skin: intact, no lesions noted Discharge Plan Discharge Items Patient Disposition: Transfer Inpatient Rehab Fac Reason For Visit: FALL FROM STANDING; WEAKNESS; NSTEMI Discharge Diagnosis: Weakness Activity: Resume your previous activity Non-emergency contact: Primary Care Provider Call non-emergency contact if: you have any medication questions and your symptoms worsen Follow-up/Referrals: Yeison Gamez MD [Primary Care Provider] - Diet: Carb Consistent or DM2 Diet Texture: Dental soft (bite-sized) Addtl Attending Provider Instructions: Mr. Quach, You were recently hospitalized falling a fall. While here you also had your insulin regimen adjusted as well. Please see recommendations below regarding your discharge. 1. Please continue on Paxil as prescribed. 2. Please continue on Seroquel that was started this hospitalization. 3. Your new insulin regimen is as follows: Lantus 10 units daily Novolog per scale ACHS or every 6 hours while NPO Goal range of 110-140 mg/dL Correction factor of 35 Carb ratio of 1 unit per 8 grams CHO consumed. 4. Remainder of outpatient medications can be continued on as previously pr escribed by PCP. If you develop any worsening symptoms including shortness of breath, chest pain, dizziness, or worsened weakness please report back to the ER for further evaluation. Please follow up with PCP within 1-2 weeks of discharge. Sincerely, Mraine Vo PA-C Stand-Alone Forms: [facility] Skilled Items Patient informed of condition?: Yes DNR: No Discharge Level of Care: Acute rehab Communicable Disease: No Discharge Prognosis: Stable Lines: None Urinary Catheter: Yes Medications and DC Order Prescriptions: New quetiapine 25 mg Tablet 25 mg PO HS Qty: 30 0RF paroxetine HCl 10 mg Tablet 10 mg PO DAILY Qty: 30 0RF guaifenesin [Mucinex] 600 mg Tablet Extended Release 12hr 600 mg PO Q12 Qty: 30 0RF insulin degludec [Tresiba FlexTouch U-100] 100 unit/mL (3 mL) insulin pen 10 unit subcut DAILY Qty: 15 0RF insulin aspart U-100 [Novolog FlexPen U-100 Insulin] 100 unit/mL (3 mL) insulin pen 1 sliding scale dose subcut ACHS Qty: 15 0RF Rx Instructions: Goal Range: Low 110 mg/dL - High 140 mg/dL Correction Factor: 35 mg/dL/unit Nutritional / Prandial insulin per carb ratio of 1 unit per 8 grams CHO consumed Continued acetaminophen [Tylenol] 325 mg Tablet 650 mg PO Q8H PRN (Reason: Pain) Qty: 30 0RF lisinopril 20 mg tablet 20 mg PO DAILY Qty: 90 3RF aspirin 81 mg tablet,delayed release (DR/EC) 81 mg PO QAM Qty: 30 0RF methenamine hippurate 1 gram tablet 1 g PO BID Qty: 60 5RF furosemide 20 mg tablet 20 mg PO DAILY Qty: 30 0RF Rx Instructions: take for 5 days with last dose 06/29/24 metoprolol succinate 25 mg tablet extended release 24 hr 12.5 mg PO QAM Qty: 90 3RF vitamin B complex Capsule 1 cap PO QAM Qty: 30 0RF cholecalciferol (vitamin D3) 1,000 unit capsule 1,000 units PO QAM Qty: 30 0RF dutasteride 0.5 mg capsule 0.5 mg PO QAM Qty: 30 0RF memantine 10 mg tablet 10 mg PO BID 90 Days Qty: 180 2RF (DME) pen needle, diabetic 32 gauge x 5/32" needle See Rx Instructions .ROUTE .MEDSUPPLY Qty: 400 1RF Rx Instructions: Use to inject insulin 4x per day mirabegron 50 mg tablet extended release 24 hr 50 mg PO DAILY Qty: 30 2RF Discontinued insulin degludec [Tresiba FlexTouch U-100] 100 unit/mL (3 mL) insulin pen 25 unit SUBCUT QAM Qty: 30 3RF insulin aspart U-100 [Novolog FlexPen U-100 Insulin] 100 unit/mL (3 mL) insulin pen See Rx Instructions .ROUTE .COMPLEX Rx Instructions: TAKES 13 UNITS W/BREAKFAST & LUNCH, 15 UNITS W/DINNER. paroxetine HCl 20 mg tablet 20 mg PO DAILY cephalexin 250 mg Capsule 250 mg PO QID Qty: 20 0RF No Action (DME) lancets [OneTouch Delica Lancets] 33 gauge misc See Dose Instructions .ROUTE .MEDSUPPLY Qty: 120 5RF Rx Instructions: Test blood sugars 4 times a day (DME) OneTouch Verio test strips Strip See Dose Instructions .ROUTE .MEDSUPPLY Qty: 400 3RF Rx Instructions: Test blood sugars 4 times a day: fasting, before lunch, before supper, before bed (DME) OneTouch Verio High Control Solution See Rx Instructions .Route Qty: 1 0RF Rx Instructions: As directed Discharge Orders: Discharge Order (Routine); Ordered 08/02/24 Ordered By: Marine Jean Baptiste/Other Patient Handouts: Hypoglycemia (Low Blood Sugar), Slips Trips Falls Prevention, Preventing Falls in the Home Admission Data Admit Date/Time: 07/27/24 15:39 Attending Provider: Morteza Keen Admit Provider: Gennaro Franklin Primary Care Provider: Yeison Gamez Other Providers: Paulo Stephenson; Regis He; [facility]; [facility]; [facility]; Александр Olmstead; Fernando Peters Other Interventions: Discharge Summary Assessment (RN) Last Done: 08/02/24 16:44 Hospital Stay Data Consultations 07/26/24 00:10 ED Decision to Admit Stat 07/26/24 04:31 Consult Urology Routine Diagnostic Imagining Performed 07/25/24 19:54 CT cervical spine wo con Stat CT head/brain wo con Stat Discharge Instructions Given to Patient (Per Discharging Provider) Mr. Quach, You were recently hospitalized falling a fall. While here you also had your insulin regimen adjusted as well. Please see recommendations below regarding your discharge. 1. Please continue on Paxil as prescribed. 2. Please continue on Seroquel that was started this hospitalization. 3. Your new insulin regimen is as follows: Lantus 10 units daily Novolog per scale ACHS or every 6 hours while NPO Goal range of 110-140 mg/dL Correction factor of 35 Carb ratio of 1 unit per 8 grams CHO consumed. 4. Remainder of outpatient medications can be continued on as previously prescribed by PCP. If you develop any worsening symptoms including shortness of breath, chest pain, dizziness, or worsened weakness please report back to the ER for further evaluation. Please follow up with PCP within 1-2 weeks of discharge. Sincerely, Marine Vo PA-C Supervising Physician Co-Signing Physician Notes During face to face encounter, I obtained a brief physical examination, dis cussed hospital stay with patient and discharge instructions with patient. I discussed discharge plan of care with MATT Vo. I reviewed above note and agree with it except for the following: Patient with episodes of hypoglycemia. Patient's lantus will be decreased to 10 units. WIll recommend close followup with PCP. Total Time Total Time Spent Total Time Spent (In Minutes): 45 Total Time Includes: Examination of the Patient, Discharge Planning and Medicat ion Reconciliation Coding Level of Care Code 10084 INP/OBS DISCH >30 MIN Diagnoses Fall from standing W19.XXXA Type 2 diabetes mellitus E11.9 Altered mental status R41.82 BPH NOS w ur obs/LUTS N40.1 Elevated troponin R79.89
== END 2024-08-02 15:45 | DRG 638 ==
LOC: ED 19:35 → 2N 19:35 → SUATTDRO 07-26 00:54 → 2N 07-26 02:54 → SUATTDRO 07-27 15:39 → 3W 07-29 23:10

== ENCOUNTER 2024-10-23 10:03 | Inpatient (IN) ==
--- NOTE | 2024-10-23 10:31 | Emergency Department Note ---
Impression & Plan Altered mental status, Acute UTI, Elevated troponin, Left ureteral calculus, Severe sepsis, SPARKLE (acute kidney injury) ED Provider Note Provider: Deon Esposito MD CHIEF COMPLAINT: Altered HISTORY OF PRESENT ILLNESS: Patient is a 89-year-old gentleman history of diabetes, CAD/paroxysmal atrial fibrillation, BPH, dementia presenting here today from [facility]. Evidently some by staff altered this morning in his wheelchair. No trauma reported. From report it is unclear exactly when his last known well is. Blood sugar was normal for EMS. Patient himself answers no to most questions does not provide any significant history however. Only occasionally following commands for me here. Son later arrives. States been medication changes just this past week. No issues until staff this morning could not really wake him. The try to get him dressed but he just would not seem to wake up and seemed lethargic. No falls or trauma reported in the last day. Patient is normally interactive but does have some short-term memory issues. PAST MEDICAL HISTORY: As noted above MEDICATIONS: Reviewed medication list from the facility SOCIAL HISTORY: Resides at [facility], patient is retired from the [employer] PHYSICAL EXAM: GENERAL: Eyes closed but alert to verbal stimuli no acute distress on the stretcher but only answers some questions. Drowsy. Head: normocephalic and atraumatic EYES: No injection, discharge or icterus. PERRL, EOMI. NECK: Trachea midline. Supple. ENT: Mucous membranes pink and moist. LUNGS: Airway patent. No retractions. Breath sounds clear with diminished bases HEART: Regular rate and rhythm. No chest wall tenderness ABDOMEN: Soft and non-tender, without guarding or rebound. Stable pelvis. SKIN: Acyanotic, warm, dry, without rashes EXTREMITIES: Without swelling, tenderness or deformity NEUROLOGICAL: Occasionally answers some questions. No slurred speech. Not the best historian. Maybe a trace left facial droop. Moving other limbs and extremities fairly symmetrically with decent strength. EK bpm sinus rhythm first-degree heart block. Left axis left bundle branch block are notable. Given this no clear acute ST segment elevation with a QTc of 473. CONTINUOUS CARDIAC MONITORING: was ordered and showed a heart rate of 60s to 80s bpm in sinus rhythm first-degree heart block Patient's laboratory studies and imaging reviewed. Differential includes Infection, dehydration, metabolic abnormality, hypo/hyperglycemia, electrolyte disturbance, anemia, hypoxia, cardiac sources, intracerebral event, toxicologic, neurologic, as well as other pathologies. IMPRESSION/MEDICAL DECISION MAKING: Patient with altered mental status today. No fall history. No fevers reported. Blood sugar not low. Broad differential entertained. Additional history obtained from son who arrives. Blood work with an elevated leukocytosis of 14. No severe anemia. Some worsened creatinine kidney function today of 1.73. Elevated troponin of 103. Question demand. Procalcitonin not severely elevated. Has a chronic indwelling Arceo and urine does appear infected. Covered with Zosyn broad-spectrum antibiotic. Did review his prior microbiology in the EMR. Patient's respiratory viral panel negative. No significant hypotension or vital sign abnormalities noted. Patient does not seem that focal and lower suspicion for CVA but did obtain a head CT. Initially plan to complete CT angiograms but canceled given the renal function. CT imaging was however completed with angiograms. Results and radiology reports reviewed. Evidence of some left-sided kidney stones noted. Patient does not seem to be in significant discomfort. Patient with some mild endorgan dysfunction with leukocytosis, slight SPARKLE, and slight troponin elevation but no hypotension, elevated procalcitonin, or elevated lactate. No fevers. Will bring in for further treatment of UTI and altered mental status. Discussed with the hospitalist team and they will reach out to urology given his findings today. DIAGNOSIS: Altered mental status, SPARKLE, sepsis, acute UTI, kidney stone, NSTEMI DISPOSITION: Hospitalist will evaluate. Son and [id number] updated at bedside. Past Med/Surg History Problem List (Updated 10/23/24 @ 16:53 by Deon Esposito M.D.) Acute metabolic encephalopathy SPARKLE (acute kidney injury) (Acute) Severe sepsis (Acute) Left ureteral calculus (Acute) Urinary retention (Acute) Type 2 diabetes mellitus Altered mental status (Acute) Elevated troponin (Acute) Generalized weakness (Acute) Non-ST elevation CT (NSTEMI) (Acute) Fall from standing (Acute) Unresponsive episode Nitrofurantoin adverse reaction Acute alteration in mental status (Acute) History of gross hematuria Edema of both lower legs Dependent edema Incontinence (Chronic) Acute UTI (Acute) Paroxysmal atrial fibrillation Dyslipidemia Weakness (Acute) Moderate nonproliferative diabetic retinopathy BPH NOS w ur obs/LUTS (Chronic) Leukopenia Diabetes type 2, controlled Dementia Weakness (Acute) Influenza A (Acute) Confusion (Acute) Balanitis Incomplete emptying of bladder Gait abnormality Albuminuria 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 Bradycardia Elevated prostate specific antigen (PSA) (Chronic) Mild cognitive impairment Dermatitis (Chronic) LBBB (left bundle branch block) (Chronic) Presence of stent in LAD coronary artery (Chronic) Abnormal electrocardiogram (Chronic) Coronary atherosclerosis of [place] coronary vessel (Chronic 06/07/12) 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) Chronic rhinitis (Chronic) Dupuytrens contracture (Chronic) Dysesthesia (Chronic) Elevated PSA (Chronic) Hypertension (Chronic) Laryngopharyngeal reflux (Chronic) Leukopenia (Chronic) Microscopic hematuria (Chronic) Mild aortic regurgitation (Chronic) Mild aortic stenosis (Chronic) Mild mitral regurgitation (Chronic) Nephrolithiasis (Chronic) Vitamin D deficiency (Chronic) Medical History Fall COVID-19 Dementia Closed rib fracture Chronic anticoagulation Weakness Rhabdomyolysis Right rib fracture 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 Enlarged prostate with lower urinary tract symptoms (LUTS) Other and unspecified hyperlipidemia (06/07/12) Hematospermia Myocardial infarction (06/07/12) Nontoxic multinodular goiter PND (post-nasal drip) Sepsis (06/07/12) Pancytopenia (~2000) Left shoulder strain CHI (closed head injury) Surgical History History of tonsillectomy History of cataract surgery History of arthroscopy of knee History of cystoscopy History of colonoscopy Status post Mohs surgery S/P drug eluting coronary stent placement Family History Brother Coronary heart disease Father Angina pectoris Carcinoma of pancreas Myocardial infarction Mother Congestive heart failure Breast cancer Unknown Diabetes Heart disease Hypertension Daughter Breast cancer Denies family history of Ovarian cancer Prostate cancer Colorectal cancer Social History Smoking Status: Unknown if ever smoked Tobacco Type: Cigarettes Second Hand Exposure: No; Do You Dip or Chew Tobacco: No; Hx Alcohol Use: No (unable to answer) Hx Substance Use: No (unable to answer) Preferred Language: Faroese Communication Ability: Effective Communication Ability Comment: Alert and oriented to person, periods of confusion. 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 Beliefs That Will Affect Care: None marital status: / Current Living Situation: Detention Current Living Situation Comment: [place] current occupational status: retired How many Children do You have: 3 Feels Safe at Home: Yes Childhood Exposure to Second-Hand Smoke: No caffeine: Yes Dental Care, Regularly: Yes Physical Activity Frequency: 1-2 Times per Week Seatbelt Use: always Sunscreen Use: Yes Assistive Devices: Walker Allergies Allergies Allergy/AdvReac Type Severity Reaction Status Date / Time Sulfa (Sulfonamide Allergy Unknown ON Verified 06/25/24 01:56 Antibiotics) MED LIST Home Meds Home Medications Medication Instructions Recorded Confirmed Milk of Magnesia 30 ml PO DAILY PRN Constipation 10/23/24 10/23/24 acetaminophen 325 mg tablet 650 mg PO DAILY PRN temp >100 10/23/24 10/23/24 (Tylenol) bisacodyl 10 mg rectal suppository 10 mg OH DAILY PRN Constipation 10/23/24 10/23/24 (Dulcolax (bisacodyl)) buspirone 10 mg tablet 10 mg PO TID 10/23/24 10/23/24 docusate sodium 100 mg capsule 100 mg PO DAILY PRN Constipation 10/23/24 10/23/24 (Colace) guaifenesin 600 mg tablet, 600 mg PO UD 10/23/24 10/23/24 extended release 12 hr (Mucinex) insulin degludec 100 unit/mL (3 16 unit subcut QAM 10/23/24 10/23/24 mL) subcutaneous pen (Tresiba FlexTouch U-100 insulin) lisinopril 20 mg tablet 10 mg PO DAILY 10/23/24 10/23/24 mirabegron 50 mg tablet,extended 50 mg PO UD 10/23/24 10/23/24 release 24 hr polyethylene glycol 3350 17 17 g PO QAM 10/23/24 10/23/24 gram/dose oral powder (Miralax) quetiapine 25 mg tablet 12.5 mg PO HS 12/08/24 12/08/24 risperidone 0.25 mg tablet 0.25 mg PO HS 10/23/24 10/23/24 Previous Rx's Medication Instructions Recorded blood glucose control, high #1 ea 11/12/21 (OneTouch Verio High Control solution) lancets 33 gauge (OneTouch Delica #120 ea 12/11/21 Lancets) OneTouch Verio test strips (blood #400 ea 12/13/21 sugar diagnostic) acetaminophen 325 mg tablet 650 mg (2 x 325 mg) PO Q8H PRN 08/02/24 (Tylenol) Pain #30 tabs aspirin 81 mg tablet,delayed 81 mg PO QAM #30 tabs 08/02/24 release cholecalciferol (vitamin D3) 25 1,000 units PO QAM #30 caps 08/02/24 mcg (1,000 unit) capsule dutasteride 0.5 mg capsule 0.5 mg PO QAM #30 caps 08/02/24 insulin aspart U-100 100 unit/mL 1 sliding scale dose subcut ACHS 08/02/24 (3 mL) subcutaneous pen (Novolog #15 mL FlexPen U-100 Insulin aspart) memantine 10 mg tablet 10 mg PO BID 90 days #180 tabs 08/02/24 methenamine hippurate 1 gram tablet 1 g PO BID #60 tabs 08/02/24 metoprolol succinate 25 mg 12.5 mg (1/2 x 25 mg) PO QAM #90 08/02/24 tablet,extended release 24 hr tabs pen needle, diabetic 32 gauge x #400 ea 08/02/24 5/32" vitamin B complex 1 cap PO QAM #30 caps 08/02/24 Results & Data (ED) Vital Signs Vital Signs - 24 hr 10/23/24 10:04 10/23/24 10:15 10/23/24 10:23 Temperature 36.5 C Temperature Source Oral Pulse Rate 71 72 Pulse Rate [Apical] Pulse Rate from SpO2 Sensor Pulse Rhythm [Apical] Pulse Strength [Apical] Respiratory Rate 19 Respiratory Effort / Characteristics Non-Labored Spontaneous Respiratory Depth Normal Respiratory Pattern Regular Blood Pressure 109/61 Blood Pressure [Left Arm] Blood Pressure [Right Arm] Blood Pressure Mean 77 Blood Pressure Mean [Left Arm] Blood Pressure Mean [Right Arm] Pulse Oximetry 95 93 Oxygen Delivery Method Room Air Room Air Oxygen Flow Rate Sepsis Recent Fever Within 48 Hours No Sepsis New/Unexplained Change in Mental Status No Sepsis Action Taken by Nursing No Action Required 10/23/24 12:00 10/23/24 12:30 10/23/24 12:30 Temperature Temperature Source Pulse Rate 88 92 H Pulse Rate [Apical] 94 H Pulse Rate from SpO2 Sensor 88 92 H Pulse Rhythm [Apical] Pulse Strength [Apical] Respiratory Rate 21 23 17 Respiratory Effort / Characteristics Non-Labored Spontaneous Respiratory Depth Normal Respiratory Pattern Blood Pressure 140/86 144/80 H Blood Pressure [Left Arm] Blood Pressure [Right Arm] 144/80 H Blood Pressure Mean 105 102 Blood Pressure Mean [Left Arm] Blood Pressure Mean [Right Arm] 101 Pulse Oximetry 95 95 95 Oxygen Delivery Method Room Air Room Air Room Air Oxygen Flow Rate Sepsis Recent Fever Within 48 Hours Sepsis New/Unexplained Change in Mental Status Sepsis Action Taken by Nursing 10/23/24 13:42 10/23/24 14:00 10/23/24 14:17 Temperature Temperature Source Pulse Rate 99 H 94 H 95 H Pulse Rate [Apical] Pulse Rate from SpO2 Sensor 101 H 94 H Pulse Rhythm [Apical] Pulse Strength [Apical] Respiratory Rate 35 H 19 Respiratory Effort / Characteristics Respiratory Depth Respiratory Pattern Blood Pressure 140/121 H 135/82 Blood Pressure [Left Arm] Blood Pressure [Right Arm] Blood Pressure Mean 127 105 Blood Pressure Mean [Left Arm] Blood Pressure Mean [Right Arm] Pulse Oximetry 94 94 Oxygen Delivery Method Room Air Oxygen Flow Rate Sepsis Recent Fever Within 48 Hours Sepsis New/Unexplained Change in Mental Status Sepsis Action Taken by Nursing 10/23/24 14:30 10/23/24 15:46 10/23/24 15:55 Temperature 36.2 C L Temperature Source Temporal Artery Scan Pulse Rate 95 H Pulse Rate [Apical] 91 H 86 Pulse Rate from SpO2 Sensor 95 H Pulse Rhythm [Apical] Regular Regular Pulse Strength [Apical] Normal Normal Respiratory Rate 20 17 15 Respiratory Effort / Characteristics Non-Labored Spontaneous Non-Labored Spontaneous Respiratory Depth Normal Normal Respiratory Pattern Regular Regular Blood Pressure 145/79 H Blood Pressure [Left Arm] 117/61 104/57 L Blood Pressure [Right Arm] Blood Pressure Mean 101 Blood Pressure Mean [Left Arm] 79 72 Blood Pressure Mean [Right Arm] Pulse Oximetry 93 94 99 Oxygen Delivery Method Room Air Oxymask Nasal Cannula Oxygen Flow Rate 4 2 Sepsis Recent Fever Within 48 Hours Sepsis New/Unexplained Change in Mental Status Sepsis Action Taken by Nursing 10/23/24 16:05 10/23/24 16:15 Temperature 36.7 C Temperature Source Temporal Artery Scan Pulse Rate Pulse Rate [Apical] 80 80 Pulse Rate from SpO2 Sensor Pulse Rhythm [Apical] Regular Regular Pulse Strength [Apical] Normal Normal Respiratory Rate 13 13 Respiratory Effort / Characteristics Non-Labored Spontaneous Non-Labored Spontaneous Respiratory Depth Normal Normal Respiratory Pattern Regular Regular Blood Pressure Blood Pressure [Left Arm] 97/54 L 103/50 L Blood Pressure [Right Arm] Blood Pressure Mean Blood Pressure Mean [Left Arm] 68 67 Blood Pressure Mean [Right Arm] Pulse Oximetry 98 99 Oxygen Delivery Method Nasal Cannula Oxymask Oxygen Flow Rate 2 2 Sepsis Recent Fever Within 48 Hours Sepsis New/Unexplained Change in Mental Status Sepsis Action Taken by Nursing Laboratory Data 10/23/24 10:25 10/23/24 10:25 Lab Results 10/23/24 10/23/24 10/23/24 Range/Units 10:15 10:22 10:25 WBC 14.95 H (4.8-10.8) K/ul RBC 3.58 L (4.70-6.10) M/uL Hgb 11.8 L (14.0-18.0) g/dl POC Hgb (14.0-18.0) g/dl Hct 35.4 L (42.0-52.0) % POC Hct (42-52) % MCV 98.9 (80.0-100.0) fL MCH 33.0 (25.0-34.0) pg MCHC 33.3 (32.0-36.0) g/dL RDW Std Deviation 50.9 H (36.4-46.3) fL RDW Coeff of Anaid 14.1 (11.5-14.5) % Plt Count 193 (130-400) K/uL MPV 9.1 L (9.4-12.4) fL Immature Gran % (Auto) 0.5 % Neut % (Auto) 88.1 % Lymph % (Auto) 3.7 % [place] % (Auto) 7.0 % Eos % (Auto) 0.4 % Baso % (Auto) 0.3 % Neut # (Auto) 13.19 H (1.40-6.50) K/uL Lymph # (Auto) 0.55 L (1.20-3.40) K/uL [place] # (Auto) 1.04 H (0.11-0.59) K/uL Eos # (Auto) 0.06 (0.00-0.50) K/uL Baso # (Auto) 0.04 (0.00-0.20) K/uL Immature Gran # (Auto) 0.07 (0.01-0.20) K/uL PT 11.5 (9.0-12.0) Seconds INR 1.1 (0.9-1.1) POC Sodium (135-144) mmol/L Sodium 139 (136-145) mmol/L POC Potassium (3.3-5.0) mmol/L Potassium 4.7 (3.5-5.1) mmol/L POC Chloride (101-112) mmol/L Chloride 105 (98-107) mmol/L Carbon Dioxide 28 (21-32) mmol/L POC Total CO2 (24-31) mmol/L Anion Gap 6 (3-11) POC Anion Gap (16-25) mmol/L POC BUN (7-18) mg/dl BUN 32 H (6-23) mg/dl Creatinine 1.73 H (0.6-1.4) mg/dl POC Creatinine (0.6-1.3) mg/dl Est Cr Clr Drug Dosing Not Reportable eGFR 37.27 BUN/Creatinine Ratio 18.5 (10-20) Glucose 155 H (70-99(Fasting)) mg/dl POC Glucose (70-99) mg/dl POC Glucose (other) (70-99) mg/dl Lactate 1.2 (0.4-2.0) mmol/L Calcium 9.2 (8.6-10.3) mg/dl POC Ioniz Calcium [place] (1.12-1.32) mmol/l Magnesium 2.1 (1.7-2.4) mg/dl Total Bilirubin 1.1 H (0.2-1.0) mg/dl AST 16 (13-39) U/L ALT 9 (7-52) U/L Alkaline Phosphatase 82 (34-104) U/L Total Creatine Kinase 26 L (30-223) U/L Troponin I High Sens 103.5 H* (0-20) pg/ml Total Protein 6.5 (6.0-8.3) gm/dl Albumin 3.5 (3.4-5.0) gm/dl Globulin 3.0 (2.5-4.0) gm/dl Albumin/Globulin Ratio 1.2 (0.9-2) Procalcitonin 0.21 (0-0.5) ng/ml TSH 1.220 (0.300-4.500) uIu/ml Urine Color Urine Appearance (Clear) Urine pH (4.5-7.5) Ur Specific [place] (1.000-1.030) Urine Protein (Negative) Urine Glucose (UA) (Negative) Urine Ketones (Negative) Urine Blood (Negative) Urine Nitrite (Negative) Urine Bilirubin (Negative) Urine Urobilinogen (Negative) Ur Leukocyte Esterase (Negative) Urine WBC (Auto) (0-5) /hpf Urine RBC (Auto) (0-2) /hpf U Hyaline Cast (Auto) (0-2) /lpf U Epithel Cells (Auto) (0-2) /hpf Urine Bacteria (Auto) (None Seen) Urine Yeast (None Prsent) Adenovirus (PCR) Not Detected (NotDetected) B. pertussis DNA (PCR) Not Detected (NotDetected) B.parapertussis DNA PCR Not Detected (NotDetected) C. pneumoniae DNA (PCR) Not Detected (NotDetected) Coronavirus OC43 (PCR) Not Detected (NotDetected) Coronavirus HKU1 (PCR) Not Detected (NotDetected) Coronavirus 229E (PCR) Not Detected (NotDetected) SARS-CoV-2 (PCR) Not Detected (NotDetected) Coronavirus NL63 (PCR) Not Detected (NotDetected) Human Metapneumovir PCR Not Detected (NotDetected) Influenza Type A (PCR) Not Detected (NotDetected) Influenza Type B (PCR) Not Detected (NotDetected) M. pneumoniae (PCR) Not Detected (NotDetected) Parainfluenza 1 (PCR) Not Detected (NotDetected) Parainfluenza 2 (PCR) Not Detected (NotDetected) Parainfluenza 3 (PCR) Not Detected (NotDetected) Parainfluenza 4 (PCR) Not Detected (NotDetected) RSV (PCR) Not Detected (NotDetected) Entero/Rhino (PCR) Not Detected (NotDetected) 12/08/24 12/08/24 12/08/24 Range/Units 10:30 10:49 11:04 WBC (4.8-10.8) K/ul RBC (4.70-6.10) M/uL Hgb (14.0-18.0) g/dl POC Hgb 11.6 L (14.0-18.0) g/dl Hct (42.0-52.0) % POC Hct 34 L (42-52) % MCV (80.0-100.0) fL MCH (25.0-34.0) pg MCHC (32.0-36.0) g/dL RDW Std Deviation (36.4-46.3) fL RDW Coeff of Anaid (11.5-14.5) % Plt Count (130-400) K/uL MPV (9.4-12.4) fL Immature Gran % (Auto) % Neut % (Auto) % Lymph % (Auto) % [place] % (Auto) % Eos % (Auto) % Baso % (Auto) % Neut # (Auto) (1.40-6.50) K/uL Lymph # (Auto) (1.20-3.40) K/uL [place] # (Auto) (0.11-0.59) K/uL Eos # (Auto) (0.00-0.50) K/uL Baso # (Auto) (0.00-0.20) K/uL Immature Gran # (Auto) (0.01-0.20) K/uL PT (9.0-12.0) Seconds INR (0.9-1.1) POC Sodium 139 (135-144) mmol/L Sodium (136-145) mmol/L POC Potassium 4.8 (3.3-5.0) mmol/L Potassium (3.5-5.1) mmol/L POC Chloride 105 (101-112) mmol/L Chloride (98-107) mmol/L Carbon Dioxide (21-32) mmol/L POC Total CO2 26 (24-31) mmol/L Anion Gap (3-11) POC Anion Gap 14.0 L (16-25) mmol/L POC BUN 34 H (7-18) mg/dl BUN (6-23) mg/dl Creatinine (0.6-1.4) mg/dl POC Creatinine 1.9 H (0.6-1.3) mg/dl Est Cr Clr Drug Dosing eGFR BUN/Creatinine Ratio (10-20) Glucose (70-99(Fasting)) mg/dl POC Glucose 171 H (70-99) mg/dl POC Glucose (other) 153 H (70-99) mg/dl Lactate (0.4-2.0) mmol/L Calcium (8.6-10.3) mg/dl POC Ioniz Calcium [place] 1.10 L (1.12-1.32) mmol/l Magnesium (1.7-2.4) mg/dl Total Bilirubin (0.2-1.0) mg/dl AST (13-39) U/L ALT (7-52) U/L Alkaline Phosphatase (34-104) U/L Total Creatine Kinase (30-223) U/L Troponin I High Sens (0-20) pg/ml Total Protein (6.0-8.3) gm/dl Albumin (3.4-5.0) gm/dl Globulin (2.5-4.0) gm/dl Albumin/Globulin Ratio (0.9-2) Procalcitonin (0-0.5) ng/ml TSH (0.300-4.500) uIu/ml Urine Color Dark Yellow Urine Appearance Turbid A (Clear) Urine pH 5.0 (4.5-7.5) Ur Specific [place] 1.020 (1.000-1.030) Urine Protein 2+ H (Negative) Urine Glucose (UA) Negative (Negative) Urine Ketones Negative (Negative) Urine Blood 3+ H (Negative) Urine Nitrite Positive A (Negative) Urine Bilirubin Negative (Negative) Urine Urobilinogen Negative (Negative) Ur Leukocyte Esterase 3+ H (Negative) Urine WBC (Auto) >50 H (0-5) /hpf Urine RBC (Auto) >20 H (0-2) /hpf U Hyaline Cast (Auto) 11-20 H (0-2) /lpf U Epithel Cells (Auto) 0-2 (0-2) /hpf Urine Bacteria (Auto) 3+ H (None Seen) Urine Yeast Present A (None Prsent) Adenovirus (PCR) (NotDetected) B. pertussis DNA (PCR) (NotDetected) B.parapertussis DNA PCR (NotDetected) C. pneumoniae DNA (PCR) (NotDetected) Coronavirus OC43 (PCR) (NotDetected) Coronavirus HKU1 (PCR) (NotDetected) Coronavirus 229E (PCR) (NotDetected) SARS-CoV-2 (PCR) (NotDetected) Coronavirus NL63 (PCR) (NotDetected) Human Metapneumovir PCR (NotDetected) Influenza Type A (PCR) (NotDetected) Influenza Type B (PCR) (NotDetected) M. pneumoniae (PCR) (NotDetected) Parainfluenza 1 (PCR) (NotDetected) Parainfluenza 2 (PCR) (NotDetected) Parainfluenza 3 (PCR) (NotDetected) Parainfluenza 4 (PCR) (NotDetected) RSV (PCR) (NotDetected) Entero/Rhino (PCR) (NotDetected) 10/23/24 10/23/24 Range/Units 12:45 15:56 WBC (4.8-10.8) K/ul RBC (4.70-6.10) M/uL Hgb (14.0-18.0) g/dl POC Hgb (14.0-18.0) g/dl Hct (42.0-52.0) % POC Hct (42-52) % MCV (80.0-100.0) fL MCH (25.0-34.0) pg MCHC (32.0-36.0) g/dL RDW Std Deviation (36.4-46.3) fL RDW Coeff of Anaid (11.5-14.5) % Plt Count (130-400) K/uL MPV (9.4-12.4) fL Immature Gran % (Auto) % Neut % (Auto) % Lymph % (Auto) % [place] % (Auto) % Eos % (Auto) % Baso % (Auto) % Neut # (Auto) (1.40-6.50) K/uL Lymph # (Auto) (1.20-3.40) K/uL [place] # (Auto) (0.11-0.59) K/uL Eos # (Auto) (0.00-0.50) K/uL Baso # (Auto) (0.00-0.20) K/uL Immature Gran # (Auto) (0.01-0.20) K/uL PT (9.0-12.0) Seconds INR (0.9-1.1) POC Sodium (135-144) mmol/L Sodium (136-145) mmol/L POC Potassium (3.3-5.0) mmol/L Potassium (3.5-5.1) mmol/L POC Chloride (101-112) mmol/L Chloride (98-107) mmol/L Carbon Dioxide (21-32) mmol/L POC Total CO2 (24-31) mmol/L Anion Gap (3-11) POC Anion Gap (16-25) mmol/L POC BUN (7-18) mg/dl BUN (6-23) mg/dl Creatinine (0.6-1.4) mg/dl POC Creatinine (0.6-1.3) mg/dl Est Cr Clr Drug Dosing eGFR BUN/Creatinine Ratio (10-20) Glucose (70-99(Fasting)) mg/dl POC Glucose 134 H (70-99) mg/dl POC Glucose (other) (70-99) mg/dl Lactate (0.4-2.0) mmol/L Calcium (8.6-10.3) mg/dl POC Ioniz Calcium [place] (1.12-1.32) mmol/l Magnesium (1.7-2.4) mg/dl Total Bilirubin (0.2-1.0) mg/dl AST (13-39) U/L ALT (7-52) U/L Alkaline Phosphatase (34-104) U/L Total Creatine Kinase (30-223) U/L Troponin I High Sens 85.2 H* D (0-20) pg/ml Total Protein (6.0-8.3) gm/dl Albumin (3.4-5.0) gm/dl Globulin (2.5-4.0) gm/dl Albumin/Globulin Ratio (0.9-2) Procalcitonin (0-0.5) ng/ml TSH (0.300-4.500) uIu/ml Urine Color Urine Appearance (Clear) Urine pH (4.5-7.5) Ur Specific [place] (1.000-1.030) Urine Protein (Negative) Urine Glucose (UA) (Negative) Urine Ketones (Negative) Urine Blood (Negative) Urine Nitrite (Negative) Urine Bilirubin (Negative) Urine Urobilinogen (Negative) Ur Leukocyte Esterase (Negative) Urine WBC (Auto) (0-5) /hpf Urine RBC (Auto) (0-2) /hpf U Hyaline Cast (Auto) (0-2) /lpf U Epithel Cells (Auto) (0-2) /hpf Urine Bacteria (Auto) (None Seen) Urine Yeast (None Prsent) Adenovirus (PCR) (NotDetected) B. pertussis DNA (PCR) (NotDetected) B.parapertussis DNA PCR (NotDetected) C. pneumoniae DNA (PCR) (NotDetected) Coronavirus OC43 (PCR) (NotDetected) Coronavirus HKU1 (PCR) (NotDetected) Coronavirus 229E (PCR) (NotDetected) SARS-CoV-2 (PCR) (NotDetected) Coronavirus NL63 (PCR) (NotDetected) Human Metapneumovir PCR (NotDetected) Influenza Type A (PCR) (NotDetected) Influenza Type B (PCR) (NotDetected) M. pneumoniae (PCR) (NotDetected) Parainfluenza 1 (PCR) (NotDetected) Parainfluenza 2 (PCR) (NotDetected) Parainfluenza 3 (PCR) (NotDetected) Parainfluenza 4 (PCR) (NotDetected) RSV (PCR) (NotDetected) Entero/Rhino (PCR) (NotDetected) Administered Medications Diatrizoate Meglumine (Diatrizoate Meglumine 30% 100ml Vial) 100 ml INSTIL UD PRN PRN Reason: intraoperative Stop: 10/27/24 15:51 Last Admin: 10/23/24 15:20 Dose: 8 ml Documented By: [id number] Vancomycin HCl 1,750 mg/ (Sodium Chloride) 535 mls @ 200 mls/hr IV NOW STA Stop: 10/23/24 17:49 Last Admin: 10/23/24 15:25 Dose: 200 mls/hr Documented By: [id number] Discontinued Medications Piperacillin Sod/Tazobactam Sod (Zosyn) 4.5 gm in 100 mls @ 200 mls/hr IV NOW ONE; Protocol Stop: 10/23/24 12:22 Last Infusion: 10/23/24 13:18 Dose: Infused Documented By: Admin: 10/23/24 12:45 Dose: 200 mls/hr Documented By: Sodium Chloride (Nss) 500 mls @ 999 mls/hr IV .Q31M ONE Stop: 10/23/24 12:39 Last Infusion: 10/23/24 13:18 Dose: Infused Documented By: Admin: 10/23/24 12:45 Dose: 999 mls/hr Documented By: Ioversol (Optiray 320 125ml) 112 ml IV ONCE ONE Stop: 10/23/24 11:46 Last Admin: 10/23/24 11:45 Dose: 112 ml Documented By: MELVIN Imaging Data Radiologist's Impression: Chest X-Ray 10/23/24 10:11 XR chest 1V portable HISTORY: 89 years-old Male weakness COMPARISON: 08/01/2024 TECHNIQUE: AP view the chest FINDINGS: Cardiac silhouette is enlarged. Pulmonary vascular congestion. Small pleural effusions with left basilar consolidation. No pneumothorax. Healed chronic left rib fractures. IMPRESSION: 1. Cardiomegaly with pulmonary vascular congestion. 2. Small pleural effusions with left basilar predominant consolidation. 3. Chronic left rib fractures. ACT 112: Negative or not required by law. The above report was generated using voice recognition software. It may contain grammatical, syntax or spelling errors. Electronically signed by: Elver Herron M.D. 10/23/2024 10:52 AM Head CTA 10/23/24 10:11 CT angio head w con, CT head/brain wo con, CT angio neck with con CLINICAL HISTORY: 89 years-old Male with ams, weak. Acute stroke like symptoms with weakness COMPARISON STUDY: Head CT 08/09/2024 TECHNIQUE: Unenhanced axial CT scan of the brain is performed. Subsequently, following the IV administration of 112 cc of Optiray, CT angiogram of the head and neck was performed. Images are reviewed in the axial, sagittal, and coronal planes. 3-D MIPS images are created and assessed. IV contrast was administered without complication. All measurements were obtained according to NASCET criteria. A dose lowering technique was utilized adhering to the principles of ALARA. CT DOSE: 3858.43 mGy.cm FINDINGS: CT BRAIN: There is no acute intracranial hemorrhage, midline shift, hydrocephalus, intracranial mass, territorial ischemia or abnormal extra-axial collections. Involutional changes with chronic microvascular ischemic disease. No abnormal intra-axial or extra-axial enhancement. Mastoid air cells and middle ear cavities are clear. No calvarial fracture. Prior bilateral lens repair. Paranasal sinuses are clear. CT ANGIOGRAM OF THE HEAD AND NECK: Three-vessel morphology of the thoracic aortic arch. Patency of the innominate and image subclavian arteries. Atherosclerotic plaque of the carotid bulbs. There is less than 50% stenosis on the right and approximately 70% stenosis on the right. The bilateral anterior and middle cerebral arteries are also patent. Calcified plaque of the V4 segment right vertebral artery causes mild stenosis. Short segment high-grade stenosis of the P1 segment left posterior tibial artery image 140. Additional focus of short segment high-grade stenosis of the right posterior cerebral artery on image 128. Cerebral venous sinuses are patent. Lung apices are clear without pneumothorax. Debris noted within the mildly distended upper thoracic esophagus which demonstrates circumferential wall thickening. Unremarkable soft tissues. Degenerative changes of the cervical spine without acute fracture. IMPRESSION: 1. No acute intracranial abnormality. 2. Atherosclerotic plaque of the right carotid bulb results in approximately 70% stenosis. 3. Areas of short segment high-grade stenosis noted within the posterior cerebral arteries. 4. No aneurysm, dissection or arterial occlusion. 5. Debris-filled mildly distended esophagus with wall thickening. Please refer to the chest CT of same day for additional findings. ACT 112: Negative or not required by law. The above report was generated using voice recognition software. It may contain grammatical, syntax or spelling errors. Electronically signed by: Elver Herron M.D. 10/23/2024 12:56 PM Neck CTA 10/23/24 10:11 CT angio head w con, CT head/brain wo con, CT angio neck with con CLINICAL HISTORY: 89 years-old Male with ams, weak. Acute stroke like symptoms with weakness COMPARISON STUDY: Head CT 08/09/2024 TECHNIQUE: Unenhanced axial CT scan of the brain is performed. Subsequently, following the IV administration of 112 cc of Optiray, CT angiogram of the head and neck was performed. Images are reviewed in the axial, sagittal, and coronal planes. 3-D MIPS images are created and assessed. IV contrast was administered without complication. All measurements were obtained according to NASCET criteria. A dose lowering technique was utilized adhering to the principles of ALARA. CT DOSE: 3858.43 mGy.cm FINDINGS: CT BRAIN: There is no acute intracranial hemorrhage, midline shift, hydrocephalus, intracranial mass, territorial ischemia or abnormal extra-axial collections. Involutional changes with chronic microvascular ischemic disease. No abnormal intra-axial or extra-axial enhancement. Mastoid air cells and middle ear cavities are clear. No calvarial fracture. Prior bilateral lens repair. Paranasal sinuses are clear. CT ANGIOGRAM OF THE HEAD AND NECK: Three-vessel morphology of the thoracic aortic arch. Patency of the innominate and image subclavian arteries. Atherosclerotic plaque of the carotid bulbs. There is less than 50% stenosis on the right and approximately 70% stenosis on the right. The bilateral anterior and middle cerebral arteries are also patent. Calcified plaque of the V4 segment right vertebral artery causes mild stenosis. Short segment high-grade stenosis of the P1 segment left posterior tibial artery image 140. Additional focus of short segment high-grade stenosis of the right posterior cerebral artery on image 128. Cerebral venous sinuses are patent. Lung apices are clear without pneumothorax. Debris noted within the mildly distended upper thoracic esophagus which demonstrates circumferential wall thickening. Unremarkable soft tissues. Degenerative changes of the cervical spine without acute fracture. IMPRESSION: 1. No acute intracranial abnormality. 2. Atherosclerotic plaque of the right carotid bulb results in approximately 70% stenosis. 3. Areas of short segment high-grade stenosis noted within the posterior cerebral arteries. 4. No aneurysm, dissection or arterial occlusion. 5. Debris-filled mildly distended esophagus with wall thickening. Please refer to the chest CT of same day for additional findings. ACT 112: Negative or not required by law. The above report was generated using voice recognition software. It may contain grammatical, syntax or spelling errors. Electronically signed by: Elver Herron M.D. 10/23/2024 12:[address] 10/23/24 10:12 CT angio head w con, CT head/brain wo con, CT angio neck with con CLINICAL HISTORY: 89 years-old Male with ams, weak. Acute stroke like symptoms with weakness COMPARISON STUDY: Head CT 08/09/2024 TECHNIQUE: Unenhanced axial CT scan of the brain is performed. Subsequently, following the IV administration of 112 cc of Optiray, CT angiogram of the head and neck was performed. Images are reviewed in the axial, sagittal, and coronal planes. 3-D MIPS images are created and assessed. IV contrast was administered without complication. All measurements were obtained according to NASCET criteria. A dose lowering technique was utilized adhering to the principles of ALARA. CT DOSE: 3858.43 mGy.cm FINDINGS: CT BRAIN: There is no acute intracranial hemorrhage, midline shift, hydrocephalus, intracranial mass, territorial ischemia or abnormal extra-axial collections. Involutional changes with chronic microvascular ischemic disease. No abnormal intra-axial or extra-axial enhancement. Mastoid air cells and middle ear cavities are clear. No calvarial fracture. Prior bilateral lens repair. Paranasal sinuses are clear. CT ANGIOGRAM OF THE HEAD AND NECK: Three-vessel morphology of the thoracic aortic arch. Patency of the innominate and image subclavian arteries. Atherosclerotic plaque of the carotid bulbs. There is less than 50% stenosis on the right and approximately 70% stenosis on the right. The bilateral anterior and middle cerebral arteries are also patent. Calcified plaque of the V4 segment right vertebral artery causes mild stenosis. Short segment high-grade stenosis of the P1 segment left posterior tibial artery image 140. Additional focus of short segment high-grade stenosis of the right posterior cerebral artery on image 128. Cerebral venous sinuses are patent. Lung apices are clear without pneumothorax. Debris noted within the mildly distended upper thoracic esophagus which demonstrates circumferential wall thickening. Unremarkable soft tissues. Degenerative changes of the cervical spine without acute fracture. IMPRESSION: 1. No acute intracranial abnormality. 2. Atherosclerotic plaque of the right carotid bulb results in approximately 70% stenosis. 3. Areas of short segment high-grade stenosis noted within the posterior cerebral arteries. 4. No aneurysm, dissection or arterial occlusion. 5. Debris-filled mildly distended esophagus with wall thickening. Please refer to the chest CT of same day for additional findings. ACT 112: Negative or not required by law. The above report was generated using voice recognition software. It may contain grammatical, syntax or spelling errors. Electronically signed by: Elver Herron M.D. 10/23/2024 12:56 PM Abdomen/Pelvis CT 10/23/24 11:11 CT chest diagnostic wo con, CT abd pelvis wo con CLINICAL HISTORY: 89 years-old Male with weak, ams, SPARKLE. Acute chest abdominal pain with weakness TECHNIQUE: Multiaxial CT images of the chest, abdomen and pelvis were performed without contrast. A dose lowering technique was utilized adhering to the principles of ALARA. COMPARISON: CT abdomen and pelvis 12/16/2023, CT chest 06/29/2021 FINDINGS: CT CHEST: No thyroid nodule or lymphadenopathy. Cardiomegaly with extensive coronary artery calcifications. Trace pericardial effusion. Atherosclerosis of the thoracic aorta with mild fusiform dilation of the ascending segment, 4.2 x 4.2 cm, unchanged from prior. Mild dilation of the pulmonary arteries suggestive of pulmonary arterial hypertension. No lymphadenopathy. Trace right and moderate left pleural effusions. Areas of mild pleural thickening noted on the left. No pneumothorax. Left right dependent bibasilar opacities suggestive of atelectasis. Intralobular septal thickening. Esophageal wall thickening noted along with esophageal distention and mild adjacent inflammatory stranding debris-filled upper to mid esophagus. Unremarkable soft tissues. Healing subacute-appearing bilateral rib fractures. No acute fracture identified. CT ABDOMEN/PELVIS: There is no pneumatosis or pneumoperitoneum. Unremarkable spleen, atrophic pancreas and adrenal glands. Distended gallbladder with cholelithiasis. A tiny punctate stone is seen within the alexys hepatis which is unchanged from prior. Unremarkable liver. 3 mm nonobstructing calculus of the inferior pole right kidney. There is a punctate calcification involving the left renal sinus on image 147. There is decreased amount of left renal calculi compared to the prior. There is moderate left-sided hydroureteronephrosis with perinephric and periureteral stranding. There is an obstructing 7 mm distal left ureteral calculus on image 288. Additional clustered calcifications within the region of the distal UPJ versus dependent bladder measuring up to 5 mm. A Arceo catheter is noted within the bladder. Wall thickening of the bladder with perivesicular stranding. Prostatomegaly. Atherosclerosis of the aorta. Moderate colonic fecal retention. No bowel obstruction or bowel wall thickening. Unremarkable soft tissues. No acute fracture. 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 IMPRESSION: 1. Cardiomegaly with fusiform dilation of the ascending thoracic aorta, unchanged from prior measuring 4.2 cm. 2. Mild interstitial pulmonary edema with trace right and moderate left pleural effusions with left greater than right bibasilar atelectasis. 3. Mild pleural thickening at the left lung base. 4. Distended upper to mid debris filled esophagus with wall thickening and adjacent inflammatory stranding. Findings could be correlated with endoscopy. 5. Healing subacute bilateral rib fractures without pneumothorax. 6. Serc-th-cfvswmge left-sided hydroureteronephrosis secondary to an obstructing 7 mm distal left ureteral calculus with additional calcifications in the region of the distal UPJ versus dependent urinary bladder measuring up to 5 mm. 7. No bowel obstruction or bowel wall thickening. 8. Additional findings as above. ACT 112: Negative or not required by law. Electronically signed by: Elver Herron M.D. 10/23/2024 1:[address] 10/23/24 11:11 CT chest diagnostic wo con, CT abd pelvis wo con CLINICAL HISTORY: 89 years-old Male with weak, ams, SPARKLE. Acute chest abdominal pain with weakness TECHNIQUE: Multiaxial CT images of the chest, abdomen and pelvis were performed without contrast. A dose lowering technique was utilized adhering to the principles of ALARA. COMPARISON: CT abdomen and pelvis 12/16/2023, CT chest 06/29/2021 FINDINGS: CT CHEST: No thyroid nodule or lymphadenopathy. Cardiomegaly with extensive coronary artery calcifications. Trace pericardial effusion. Atherosclerosis of the thoracic aorta with mild fusiform dilation of the ascending segment, 4.2 x 4.2 cm, unchanged from prior. Mild dilation of the pulmonary arteries suggestive of pulmonary arterial hypertension. No lymphadenopathy. Trace right and moderate left pleural effusions. Areas of mild pleural thickening noted on the left. No pneumothorax. Left right dependent bibasilar opacities suggestive of atelectasis. Intralobular septal thickening. Esophageal wall thickening noted along with esophageal distention and mild adjacent inflammatory stranding debris-filled upper to mid esophagus. Unremarkable soft tissues. Healing subacute-appearing bilateral rib fractures. No acute fracture identified. CT ABDOMEN/PELVIS: There is no pneumatosis or pneumoperitoneum. Unremarkable spleen, atrophic pancreas and adrenal glands. Distended gallbladder with cholelithiasis. A tiny punctate stone is seen within the alexys hepatis which is unchanged from prior. Unremarkable liver. 3 mm nonobstructing calculus of the inferior pole right kidney. There is a punctate calcification involving the left renal sinus on image 147. There is decreased amount of left renal calculi compared to the prior. There is moderate left-sided hydroureteronephrosis with perinephric and periureteral stranding. There is an obstructing 7 mm distal left ureteral calculus on image 288. Additional clustered calcifications within the region of the distal UPJ versus dependent bladder measuring up to 5 mm. A Arceo catheter is noted within the bladder. Wall thickening of the bladder with perivesicular stranding. Prostatomegaly. Atherosclerosis of the aorta. Moderate colonic fecal retention. No bowel obstruction or bowel wall thickening. Unremarkable soft tissues. No acute fracture. 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 IMPRESSION: 1. Cardiomegaly with fusiform dilation of the ascending thoracic aorta, unchanged from prior measuring 4.2 cm. 2. Mild interstitial pulmonary edema with trace right and moderate left pleural effusions with left greater than right bibasilar atelectasis. 3. Mild pleural thickening at the left lung base. 4. Distended upper to mid debris filled esophagus with wall thickening and adjacent inflammatory stranding. Findings could be correlated with endoscopy. 5. Healing subacute bilateral rib fractures without pneumothorax. 6. Joth-zw-qezlhozw left-sided hydroureteronephrosis secondary to an obstructing 7 mm distal left ureteral calculus with additional calcifications in the region of the distal UPJ versus dependent urinary bladder measuring up to 5 mm. 7. No bowel obstruction or bowel wall thickening. 8. Additional findings as above. ACT 112: Negative or not required by law. Electronically signed by: Elver Herron M.D. 10/23/2024 1:08 PM Discharge Plan Visit Data Chief Complaint: Altered Mental Status Stated Complaint: [facility] ED Provider: Deon Esposito Discharge Problem: Altered mental status, Acute UTI, Elevated troponin, Left ureteral calculus, Severe sepsis, SPARKLE (acute kidney injury) Patient Disposition: Admitted As Inpatient Discharge Instructions Interventions: ED Discharge Assessment Last Done: 10/23/24 14:41
[2024-10-23 10:41] LABS: Basophils # (auto) 0.04 K/uL (0.00-0.20); Basophils % (auto) 0.3 %; Eosinophils # (auto) 0.06 K/uL (0.00-0.50); Eosinophils % (auto) 0.4 %; Hematocrit (blood only) 35.4 % (42.0-52.0); Hemoglobin 11.8 g/dl (14.0-18.0); Immature Granulocytes # (auto) 0.07 K/uL (0.01-0.20); Immature Granulocytes % (auto) 0.5 %; Lymphocytes # (auto) 0.55 K/uL (1.20-3.40); Lymphocytes % (auto) 3.7 %; Mean Corpuscular Hgb Conc 33.3 g/dL (32.0-36.0); Mean Corpuscular Volume 98.9 fL (80.0-100.0); Mean Platelet Volume 9.1 fL (9.4-12.4); Monocytes # (auto) 1.04 K/uL (0.11-0.59); Neutrophils # (auto) 13.19 K/uL (1.40-6.50); Neutrophils % (auto) 88.1 %; Platelet Count 193 K/uL (130-400); RDW Coefficient of Variation 14.1 % (11.5-14.5); RDW Standard Deviation 50.9 fL (36.4-46.3); Red Blood Count 3.58 M/uL (4.70-6.10); White Blood Count 14.95 K/ul (4.8-10.8)
--- NOTE | 2024-10-23 10:54 | XRay Report ---
XR chest 1V portable HISTORY: 89 years-old Male weakness COMPARISON: 08/01/2024 TECHNIQUE: AP view the chest FINDINGS: Cardiac silhouette is enlarged. Pulmonary vascular congestion. Small pleural effusions with left basi lar consolidation. No pneumothorax. Healed chronic left rib fractures. IMPRESSION: 1. Cardiomegaly with pulmonary vascular congestion. 2. Small pleural effusions with left basilar predominant consolidation. 3. Chronic left rib fractures. ACT 112: Negative or not required by law. The above report was generated using voice recognition software. It may contain grammatical, syntax o r spelling errors. Electronically signed by: Elver Herron M.D. 10/23/2024 10:52 AM
[2024-10-23 10:57] LABS: Alanine Aminotransferase 9 U/L (7-52); Albumin Globulin Ratio 1.2 (0.9-2); Albumin Level 3.5 gm/dl (3.4-5.0); Alkaline Phosphatase 82 U/L (34-104); Anion Gap 6 (3-11); Aspartate Aminotransferase 16 U/L (13-39); BUN Creatinine Ratio 18.5 (10-20); Bilirubin,Total 1.1 mg/dl (0.2-1.0); Blood Urea Nitrogen 32 mg/dl (6-23); Calcium 9.2 mg/dl (8.6-10.3); Carbon Dioxide 28 mmol/L (21-32); Chloride 105 mmol/L (98-107); Creatine Kinase 26 U/L (30-223); Glucose 155 mg/dl (70-99(Fasting)); Magnesium 2.1 mg/dl (1.7-2.4); Potassium 4.7 mmol/L (3.5-5.1); Sodium 139 mmol/L (136-145); Total Protein 6.5 gm/dl (6.0-8.3)
[2024-10-23 11:05] LABS: INR 1.1 (0.9-1.1); Prothrombin Time 11.5 Seconds (9.0-12.0)
[2024-10-23 11:08] LABS: Troponin I High Sensitivity 103.5 pg/ml (0-20)
[2024-10-23 11:23] LABS: iSTAT Creatinine 1.9 mg/dl (0.6-1.3); iSTAT Hemoglobin 11.6 g/dl (14.0-18.0); iSTAT Ionized Calcium 1.1 mmol/l (1.12-1.32); iSTAT Potassium 4.8 mmol/L (3.3-5.0)
[2024-10-23 11:25] LABS: Adenovirus PCR Not Detected (NotDetected); Bordetella parapertussis PCR Not Detected (NotDetected); Bordetella pertussis PCR Not Detected (NotDetected); Chlamydia pneumoniae PCR Not Detected (NotDetected); Coronavirus 229E PCR Not Detected (NotDetected); Coronavirus CoV-2 (COVID19)PCR Not Detected (NotDetected); Coronavirus HKU1 PCR Not Detected (NotDetected); Coronavirus NL63 PCR Not Detected (NotDetected); Coronavirus OC43PCR Not Detected (NotDetected); Human Metapneumovirus PCR Not Detected (NotDetected); Influenza A PCR Not Detected (NotDetected); Influenza B PCR Not Detected (NotDetected); Mycoplasma pneumoniae PCR Not Detected (NotDetected); Parainfluenza Virus 1 PCR Not Detected (NotDetected); Parainfluenza Virus 2 PCR Not Detected (NotDetected); Parainfluenza Virus 3 PCR Not Detected (NotDetected); Parainfluenza Virus 4 PCR Not Detected (NotDetected); Respiratory Syncytial VirusPCR Not Detected (NotDetected); Rhinovirus/Enterovirus PCR Not Detected (NotDetected)
[2024-10-23 11:40] LABS: Appearance Urine Turbid (Clear); Bacteria Urine Automated 3+ (None Seen); Bilirubin Urine Negative (Negative); Blood Urine 3+ (Negative); Color Urine Dark Yellow; Epithelial Cell Urine Auto 0-2 /hpf (0-2); Glucose Urine UA Negative (Negative); Ketones Urine Negative (Negative); Leukocyte Esterase Urine 3+ (Negative); Nitrite Urine Positive (Negative); Protein Urine 2+ (Negative); RBC Urine Automated >20 /hpf (0-2); Urobilinogen Urine Negative (Negative); WBC Urine Automated >50 /hpf (0-5)
[2024-10-23] MEDS: OPTIRAY 320 125ml IV ONE (11:45)
[2024-10-23] MEDS: SODIUM CHLORIDE 0.9% 500 ML IV ONE (12:45)
[2024-10-23] MEDS: PIPERACILLIN/TAZOBACTAM 4.5 GM/100 ML BAG IV ONE (12:45)
--- NOTE | 2024-10-23 12:58 | CT Scan Report ---
CT angio head w con, CT head/brain wo con, CT angio neck with con CLINICAL HISTORY: 89 years-old Male with ams, weak. Acute stroke like symptoms with weakness COMPARISON STUDY: Head CT 08/09/2024 TECHNIQUE: Unenhanced axial CT scan of the brain is performed. Subsequently, following the IV adminis tration of 112 cc of Optiray, CT angiogram of the head and neck was performed. Images are reviewed in the axial, sagittal, and coronal planes. 3-D MIPS images are created and assessed. IV contrast was a dministered without complication. All measurements were obtained according to NASCET criteria. A dose lowering technique was utilized adhering to the principles of ALARA. CT DOSE: 3858.43 mGy.cm FINDINGS: CT BRAIN: There is no acute intracranial hemorrhage, midline shift, hydrocephalus, intracranial mass, territori al ischemia or abnormal extra-axial collections. Involutional changes with chronic microvascular isch emic disease. No abnormal intra-axial or extra-axial enhancement. Mastoid air cells and middle ear c avities are clear. No calvarial fracture. Prior bilateral lens repair. Paranasal sinuses are clear. CT ANGIOGRAM OF THE HEAD AND NECK: Three-vessel morphology of the thoracic aortic arch. Patency of the innominate and image subclavian a rteries. Atherosclerotic plaque of the carotid bulbs. There is less than 50% stenosis on the right an d approximately 70% stenosis on the right. The bilateral anterior and middle cerebral arteries are al so patent. Calcified plaque of the V4 segment right vertebral artery causes mild stenosis. Short segm ent high-grade stenosis of the P1 segment left posterior tibial artery image 140. Additional focus of short segment high-grade stenosis of the right posterior cerebral artery on image 128. Cerebral veno us sinuses are patent. Lung apices are clear without pneumothorax. Debris noted within the mildly distended upper thoracic e sophagus which demonstrates circumferential wall thickening. Unremarkable soft tissues. Degenerative changes of the cervical spine without acute fracture. IMPRESSION: 1. No acute intracranial abnormality. 2. Atherosclerotic plaque of the right carotid bulb results in approximately 70% stenosis. 3. Areas of short segment high-grade stenosis noted within the posterior cerebral arteries. 4. No aneurysm, dissection or arterial occlusion. 5. Debris-filled mildly distended esophagus with wall thickening. Please refer to the chest CT of [place] for additional findings. ACT 112: Negative or not required by law. The above report was generated using voice recognition software. It may contain grammatical, syntax o r spelling errors. Electronically signed by: Elver Herron M.D. 10/23/2024 12:56 PM
--- NOTE | 2024-10-23 13:10 | CT Scan Report ---
CT chest diagnostic wo con, CT abd pelvis wo con CLINICAL HISTORY: 89 years-old Male with weak, ams, SPARKLE. Acute chest abdominal pain with weakness TECHNIQUE: Multiaxial CT images of the chest, abdomen and pelvis were performed without contrast. A dose lowering technique was utilized adhering to the principles of ALARA. COMPARISON: CT abdomen and pelvis 12/16/2023, CT chest 06/29/2021 FINDINGS: CT CHEST: No thyroid nodule or lymphadenopathy. Cardiomegaly with extensive coronary artery calcifica tions. Trace pericardial effusion. Atherosclerosis of the thoracic aorta with mild fusiform dilation of the ascending segment, 4.2 x 4.2 cm, unchanged from prior. Mild dilation of the pulmonary arteries suggestive of pulmonary arterial hypertension. No lymphadenopathy. Trace right and moderate left pleural effusions. Areas of mild pleural thickening noted on the left. No pneumothorax. Left right dependent bibasilar opacities suggestive of atelectasis. Intralobular sep roly thickening. Esophageal wall thickening noted along with esophageal distention and mild adjacent i nflammatory stranding debris-filled upper to mid esophagus. Unremarkable soft tissues. Healing subacu te-appearing bilateral rib fractures. No acute fracture identified. CT ABDOMEN/PELVIS: There is no pneumatosis or pneumoperitoneum. Unremarkable spleen, atrophic pancrea s and adrenal glands. Distended gallbladder with cholelithiasis. A tiny punctate stone is seen within the alexys hepatis which is unchanged from prior. Unremarkable liver. 3 mm nonobstructing calculus of the inferior pole right kidney. There is a punctate calcification involving the left renal sinus on image 147. There is decreased amount of left renal calculi compared to the prior. There is moderate l eft-sided hydroureteronephrosis with perinephric and periureteral stranding. There is an obstructing 7 mm distal left ureteral calculus on image 288. Additional clustered calcifications within the regio n of the distal UPJ versus dependent bladder measuring up to 5 mm. A Arceo catheter is noted within t he bladder. Wall thickening of the bladder with perivesicular stranding. Prostatomegaly. Atherosclero sis of the aorta. Moderate colonic fecal retention. No bowel obstruction or bowel wall thickening. Unremarkable soft ti ssues. No acute fracture. 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 IMPRESSION: 1. Cardiomegaly with fusiform dilation of the ascending thoracic aorta, unchanged from prior measurin g 4.2 cm. 2. Mild interstitial pulmonary edema with trace right and moderate left pleural effusions with left g reater than right bibasilar atelectasis. 3. Mild pleural thickening at the left lung base. 4. Distended upper to mid debris filled esophagus with wall thickening and adjacent inflammatory stra nding. Findings could be correlated with endoscopy. 5. Healing subacute bilateral rib fractures without pneumothorax. 6. Oecf-gz-[id number] left-sided hydroureteronephrosis secondary to an obstructing 7 mm distal left ure teral calculus with additional calcifications in the region of the distal UPJ versus dependent urinar y bladder measuring up to 5 mm. 7. No bowel obstruction or bowel wall thickening. 8. Additional findings as above. ACT 112: Negative or not required by law. Electronically signed by: Elver Herron M.D. 10/23/2024 1:08 PM
--- NOTE | 2024-10-23 13:19 | Electrocardiogram Report ---
Test Reason : Blood Pressure : */* mmHG Vent. Rate : 69 BPM Atrial Rate : 69 BPM P-R Int : 252 ms QRS Dur : 144 ms QT Int : 442 ms P-R-T Axes : 79 -56 73 degrees QTcB Int : 473 ms Sinus rhythm with 1st degree A-V block Left axis deviation Left bundle branch block Abnormal ECG When compared with ECG of 09-Aug-2024 20:55, No significant change was found Confirmed by Arsalan Patel ([id number]) on 10/23/2024 1:18:44 PM Referred By: Confirmed By: Arsalan Patel
--- NOTE | 2024-10-23 14:11 | Urology Consultation ---
Date of Consultation October 23, 2024 Assessment & Plan (1) Acute UTI: (2) Left ureteral calculus: Plan 89-year-old male with dementia presented to the emergency department and was found on CT scan to have a left distal obstructing ureteral calculus. Afebrile with stable vitals. Leukocytosis of 14 and an SPARKLE with a creatinine of 1.7. Urinalysis concerning for infection. Spoke to patient's son who is POA and recommended proceeding with cystoscopy, left retrograde pyelogram and left ureteral stent placement given obstructing stone and concern for infection. Son agreeable. Son provided consent. Patient marked History of Present Illness History of Present Illness 89-year-old male with dementia presented to the emergency department and was found on CT scan to have a left distal obstructing ureteral calculus. Afebrile with stable vitals. Leukocytosis of 14 and an SPARKLE with a creatinine of 1.7. Urinalysis concerning for infection. He is a former patient of Dr. Roberts'dedrick and his bladder is currently managed with a Arceo catheter these had for several months. Allergies Allergy/AdvReac Type Severity Reaction Status Date / Time Sulfa (Sulfonamide Allergy Unknown ON HARMONY Verified 06/25/24 01:56 Antibiotics) MED LIST Home Medications Medication Instructions Recorded Confirmed Type blood glucose control, high #1 ea 11/12/21 07/14/24 Rx (OneTouch Verio High Control solution) lancets 33 gauge (OneTouch Delica #120 ea 12/11/21 07/14/24 Rx Lancets) OneTouch Verio test strips (blood #400 ea 12/13/21 07/14/24 Rx sugar diagnostic) acetaminophen 325 mg tablet 650 mg (2 x 325 mg) PO Q8H PRN 08/02/24 10/23/24 Rx (Tylenol) Pain #30 tabs aspirin 81 mg tablet,delayed 81 mg PO QAM #30 tabs 08/02/24 10/23/24 Rx release cholecalciferol (vitamin D3) 25 1,000 units PO QAM #30 caps 08/02/24 10/23/24 Rx mcg (1,000 unit) capsule dutasteride 0.5 mg capsule 0.5 mg PO QAM #30 caps 08/02/24 10/23/24 Rx insulin aspart U-100 100 unit/mL 1 sliding scale dose subcut ACHS 08/02/24 10/23/24 Rx (3 mL) subcutaneous pen (Novolog #15 mL FlexPen U-100 Insulin aspart) memantine 10 mg tablet 10 mg PO BID 90 days #180 tabs 08/02/24 10/23/24 Rx methenamine hippurate 1 gram tablet 1 g PO BID #60 tabs 08/02/24 10/23/24 Rx metoprolol succinate 25 mg 12.5 mg (1/2 x 25 mg) PO QAM #90 08/02/24 10/23/24 Rx tablet,extended release 24 hr tabs pen needle, diabetic 32 gauge x #400 ea 08/02/24 Rx 32" vitamin B complex 1 cap PO QAM #30 caps 08/02/24 10/23/24 Rx Milk of Magnesia 30 ml PO DAILY PRN Constipation 10/23/24 10/23/24 History acetaminophen 325 mg tablet 650 mg PO DAILY PRN temp >100 10/23/24 10/23/24 History (Tylenol) bisacodyl 10 mg rectal suppository 10 mg MD DAILY PRN Constipation 10/23/24 10/23/24 History (Dulcolax (bisacodyl)) buspirone 10 mg tablet 10 mg PO TID 10/23/24 10/23/24 History docusate sodium 100 mg capsule 100 mg PO DAILY PRN Constipation 10/23/24 10/23/24 History (Colace) guaifenesin 600 mg tablet, 600 mg PO UD 10/23/24 10/23/24 History extended release 12 hr (Mucinex) insulin degludec 100 unit/mL (3 16 unit subcut QAM 10/23/24 10/23/24 History mL) subcutaneous pen (Tresiba FlexTouch U-100 insulin) lisinopril 20 mg tablet 10 mg PO DAILY 10/23/24 10/23/24 History mirabegron 50 mg tablet,extended 50 mg PO UD 10/23/24 10/23/24 History release 24 hr paroxetine HCl 10 mg tablet 10 mg PO UD 10/23/24 10/23/24 History polyethylene glycol 3350 17 17 g PO QAM 10/23/24 10/23/24 History gram/dose oral powder (Miralax) quetiapine 25 mg tablet 25 mg PO UD 10/23/24 10/23/24 History risperidone 0.25 mg tablet 0.25 mg PO HS 10/23/24 10/23/24 History Patient History Medical History Fall COVID-19 Dementia Closed rib fracture Chronic anticoagulation Weakness Rhabdomyolysis Right rib fracture 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 Enlarged prostate with lower urinary tract symptoms (LUTS) Other and unspecified hyperlipidemia (06/07/12) Hematospermia Myocardial infarction (06/07/12) Nontoxic multinodular goiter PND (post-nasal drip) Sepsis (06/07/12) Pancytopenia (~2000) Left shoulder strain CHI (closed head injury) Surgical History History of tonsillectomy History of cataract surgery History of arthroscopy of knee History of cystoscopy History of colonoscopy Status post Mohs surgery S/P drug eluting coronary stent placement Family History Brother Coronary heart disease Father Angina pectoris Carcinoma of pancreas Myocardial infarction Mother Congestive heart failure Breast cancer Unknown Diabetes Heart disease Hypertension Daughter Breast cancer Denies family history of Ovarian cancer Prostate cancer Colorectal cancer Social History Smoking Status: Unknown if ever smoked Tobacco Type: Cigarettes Second Hand Exposure: No; Do You Dip or Chew Tobacco: No; Hx Alcohol Use: No (unable to answer) Hx Substance Use: No (unable to answer) Preferred Language: [place] Communication Ability: Effective Communication Ability Comment: Alert and oriented to person, periods of confusion. Visual Impairment: Limited Hearing Ability: Normal Internal Affairs Commander Required: No Beliefs That Will Affect Care: None marital status: / Current Living Situation: Jail Current Living Situation Comment: [place] current occupational status: retired How many Children do You have: 3 Feels Safe at Home: Yes Childhood Exposure to Second-Hand Smoke: No caffeine: Yes Dental Care, Regularly: Yes Physical Activity Frequency: 1-2 Times per Week Seatbelt Use: always Sunscreen Use: Yes Assistive Devices: Walker Physical Exam Physical Exam: General: No acute distress HEENT: Normocephalic, mucous membranes moist Pulmonary: Nonlabored respirations Abdomen: Nondistended Extremities: Moves all 4 spontaneously Neuro: No gross deficits Skin: Warm, dry, no rashes noted Results & Data Vital Signs (Past 12 Hours) Vital Signs Temp Pulse Pulse Resp BP BP Pulse Ox 10/23/24 12:30 94 H 23 144/80 H 95 10/23/24 10:23 93 10/23/24 10:15 72 10/23/24 10:04 36.5 C 71 19 109/61 95 O2 Del Method 10/23/24 12:30 Room Air 10/23/24 10:23 Room Air 10/23/24 10:15 10/23/24 10:04 Room Air PG Care Time/CCT Total # of Minutes Spent Total Time Spent with Patient: Total time spent is greater than 50% in coordination of care (as documented) at patient's floor/unit and/or counseling patient: Coding Level of Care Code 59978 INT INP/OBS CARE 2/55MIN Diagnoses Acute UTI N39.0 Left ureteral calculus N20.1
[2024-10-23] MEDS ORDERED: VANCOMYCIN CONSULT ACTIVE PRN (14:48)
[2024-10-23] MEDS ORDERED: fentaNYL citrate PF 100 MCG/2 ML VIAL ONE ×2 (14:51→15:26)
[2024-10-23] MEDS ORDERED: MIDAZOLAM HCL 1 MG/ML 2ML VIAL ONE (14:51)
[2024-10-23] MEDS ORDERED: fentaNYL citrate PF 100 MCG/2 ML VIAL IV PRN (15:07)
[2024-10-23] MEDS ORDERED: HYDROmorphone INJ 2 MG/ML SYR/VIAL IV PRN (15:07)
[2024-10-23] MEDS ORDERED: ePHEDrine sulfate 50 MG/ML AMP IV PRN (15:07)
[2024-10-23] MEDS ORDERED: ONDANSETRON INJ 2 MG/ML 2 ML VIAL IV PRN ×2 (15:07→17:21)
[2024-10-23] MEDS ORDERED: ATROPINE SULFATE 0.1 MG/ML 10ML SYR IV PRN (15:07)
--- NOTE | 2024-10-23 15:07 | Anesthesiology Consultation ---
Date of Service October 23, 2024 Assessment & Plan ASA ASA2 Proposed Anesthesia Anesthesia Type: General Risk / Benefits Reviewed With: PT / POA / Parent / Guardian, Accepts Plan and Informed Consent Obtained Additional Comments: ct notes that there could be debris in the esophagus. pt is septic and will proceed with sedation History Surgery Operation Date: 10/23/24 15:00 Proposed Procedures p Ureteral Stent Insertion/Removal(Left) - Fernando Peters MD Height/Weight Height: 5 ft 10 in Weight: 84.5 kg Allergies Allergy/AdvReac Type Severity Reaction Status Date / Time Sulfa (Sulfonamide Allergy Unknown ON HARMONY Verified 06/25/24 01:56 Antibiotics) MED LIST Medications Home Medications Medication Instructions Recorded Confirmed Last Taken blood glucose control, high #1 ea 11/12/21 07/14/24 Unknown (OneTouch Verio High Control solution) lancets 33 gauge (OneTouch Delica #120 ea 12/11/21 07/14/24 Unknown Lancets) OneTouch Verio test strips (blood #400 ea 12/13/21 07/14/24 Unknown sugar diagnostic) acetaminophen 325 mg tablet 650 mg (2 x 325 mg) PO Q8H PRN 08/02/24 10/23/24 Unknown (Tylenol) Pain #30 tabs aspirin 81 mg tablet,delayed 81 mg PO QAM #30 tabs 08/02/24 10/23/24 Unknown release cholecalciferol (vitamin D3) 25 1,000 units PO QAM #30 caps 08/02/24 10/23/24 Unknown mcg (1,000 unit) capsule dutasteride 0.5 mg capsule 0.5 mg PO QAM #30 caps 08/02/24 10/23/24 Unknown insulin aspart U-100 100 unit/mL 1 sliding scale dose subcut ACHS 08/02/24 10/23/24 Unknown (3 mL) subcutaneous pen (Novolog #15 mL FlexPen U-100 Insulin aspart) memantine 10 mg tablet 10 mg PO BID 90 days #180 tabs 08/02/24 10/23/24 Unknown methenamine hippurate 1 gram tablet 1 g PO BID #60 tabs 08/02/24 10/23/24 Unknown metoprolol succinate 25 mg 12.5 mg (1/2 x 25 mg) PO QAM #90 08/02/24 10/23/24 Unknown tablet,extended release 24 hr tabs pen needle, diabetic 32 gauge x #400 ea 08/02/24 Unknown 5/32" vitamin B complex 1 cap PO QAM #30 caps 08/02/24 10/23/24 Unknown Milk of Magnesia 30 ml PO DAILY PRN Constipation 10/23/24 10/23/24 Unknown acetaminophen 325 mg tablet 650 mg PO DAILY PRN temp >100 10/23/24 10/23/24 Unknown (Tylenol) bisacodyl 10 mg rectal suppository 10 mg [place] DAILY PRN Constipation 10/23/24 10/23/24 Unknown (Dulcolax (bisacodyl)) buspirone 10 mg tablet 10 mg PO TID 10/23/24 10/23/24 Unknown docusate sodium 100 mg capsule 100 mg PO DAILY PRN Constipation 10/23/24 10/23/24 Unknown (Colace) guaifenesin 600 mg tablet, 600 mg PO UD 10/23/24 10/23/24 Unknown extended release 12 hr (Mucinex) insulin degludec 100 unit/mL (3 16 unit subcut QAM 10/23/24 10/23/24 Unknown mL) subcutaneous pen (Tresiba FlexTouch U-100 insulin) lisinopril 20 mg tablet 10 mg PO DAILY 10/23/24 10/23/24 Unknown mirabegron 50 mg tablet,extended 50 mg PO UD 10/23/24 10/23/24 Unknown release 24 hr polyethylene glycol 3350 17 17 g PO QAM 10/23/24 10/23/24 Unknown gram/dose oral powder (Miralax) quetiapine 25 mg tablet 25 mg PO UD 10/23/24 10/23/24 Unknown risperidone 0.25 mg tablet 0.25 mg PO HS 10/23/24 10/23/24 Unknown NPO Date Last Intake of Fluids: 10/23/24 Time Last Intake of Fluids: 00:00 Date Last Intake of Solids: 10/23/24 Time Last Intake of Solids: 00:00 Past Medical History Medical History Fall COVID-19 Dementia Closed rib fracture Chronic anticoagulation Weakness Rhabdomyolysis Right rib fracture 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 Enlarged prostate with lower urinary tract symptoms (LUTS) Other and unspecified hyperlipidemia (06/07/12) Hematospermia Myocardial infarction (06/07/12) Nontoxic multinodular goiter PND (post-nasal drip) Sepsis (06/07/12) Pancytopenia (~2000) Left shoulder strain CHI (closed head injury) Exercise / Class Metabolic Activity III < 4 Walking/Shop/Light housework Past Family History Family History Brother Coronary heart disease Father Angina pectoris Carcinoma of pancreas Myocardial infarction Mother Congestive heart failure Breast cancer Unknown Diabetes Heart disease Hypertension Daughter Breast cancer Denies family history of Ovarian cancer Prostate cancer Colorectal cancer Past Surgical History Surgical History History of tonsillectomy History of cataract surgery History of arthroscopy of knee History of cystoscopy History of colonoscopy Status post Mohs surgery S/P drug eluting coronary stent placement Past Anesthesia History No Hx of Anesthesia Complications and No Family Hx of Anesthesia Complications History of PONV No Hx of PONV and No Hx of Motion Sickness Social History Smoking Status: Unknown if ever smoked Do You Dip or Chew Tobacco: No Hx Alcohol Use: No (unable to answer) Hx Substance Use: No (unable to answer) substance use type: does not use Review of Systems denies fever/cough/ colds/ chest pain/ SOB/ VIPUL denies VIPUL Physical Exam Vital Signs Last Vital Signs Temp 36.5 C 10/23/24 10:04 Pulse 95 H 10/23/24 14:30 Resp 20 10/23/24 14:30 BP 145/79 H 10/23/24 14:30 Pulse Ox 93 10/23/24 14:30 O2 Del Method Room Air 10/23/24 14:30 Constitutional + lethargic ENMT Mouth: no TMJ abnormality and no dentition abnormality Thyromental Distance: > or= 3.5 Finger Breadths Mallampati Class: III Neck neck extension not limited Respiratory normal respiratory effort; no respiratory distress Auscultation: lungs clear to auscultation bilaterally Cardiovascular Rate/Rhythm: regular rate and regular rhythm Heart Sounds: + murmur Neurologic moves all extremities Psychiatric Orientation: alert and oriented x 3 Testing Laboratory Results 10/23/24 10:25 10/23/24 10:25 PT 11.5 Seconds (9.0-12.0) 10/23/24 10:25 INR 1.1 (0.9-1.1) 10/23/24 10:25 Urine Color Dark Yellow 10/23/24 11:04 Urine Appearance Turbid (Clear) A 10/23/24 11:04 Urine pH 5.0 (4.5-7.5) 10/23/24 11:04 Ur Specific Alliance 1.020 (1.000-1.030) 10/23/24 11:04 Urine Protein 2+ (Negative) H 10/23/24 11:04 Urine Glucose (UA) Negative (Negative) 10/23/24 11:04 Urine Ketones Negative (Negative) 10/23/24 11:04 Urine Nitrite Positive (Negative) A 10/23/24 11:04 Ur Leukocyte Esterase 3+ (Negative) H 10/23/24 11:04 Urine WBC (Auto) >50 /hpf (0-5) H 10/23/24 11:04 Urine RBC (Auto) >20 /hpf (0-2) H 10/23/24 11:04 U Hyaline Cast (Auto) 11-20 /lpf (0-2) H 10/23/24 11:04 U Epithel Cells (Auto) 0-2 /hpf (0-2) 10/23/24 11:04 Urine Bacteria (Auto) 3+ (None Seen) H 10/23/24 11:04 10/23/24 10/23/24 10:49 10:30 POC Glucose 171 H POC Glucose (other) 153 H
--- NOTE | 2024-10-23 15:15 | History & Physical Report ---
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 Severe Sepsis SPARKLE Complicated UTI Metabolic encephalopathy mild to moderate left-sided hydroureteronephrosis secondary to an obstructing 7 mm distal ureteral calculus Admit to PCU discussed with Urology - plan for emergent intervention outpt records reviewed pt recently treated with cefnidir and doxy for UTI consistent with enterococcus and e. coli blood/urine cultures obtained Tx with empiric Vanco/Zosyn until culture results + lactobacillus continue gentle IVF in setting of concern for volume overload Baseline cr 1.0, follow post intervention and hydration T2DM: lantus/novolog per protocol, consult glycemic pharmacy given sepsis, a1c 6.1 in July CAD with hx of coronary Stent Chronic LBBB HTN Nonrheumatic AV stenosis PAF - not on OAC Fusiform dilation of the ascending thoracic aorta, unchanged from prior measuring 4.2 cm. Elevated troponin cont asa, metoprolol; hold lisinopril 2/2 SPARKLE obtain echocardiogram to determine baseline, cycle trops suspect troponin elevation in setting of demand ischemia due to sepsis, no true NSTEMI BPH/LUTS with chronic indwelling balderrama and recurrent UTI : follows urology, hold methenamine hippurate, continue dutasteride Severe late onset Alzheimer's dementia with agitation: continue namenda, buspar, seroquel and risperdal, delirium precautions, follows Psych at [facility] Dr. Dinh Anemia: hgb stable at 11.8, no s/sx of bleeding monitor Abnormal CT Chest: findings: Distended upper to mid debris filled esophagus with wall thickening and adjacent inflammatory stranding. Findings could be correlated with endoscopy., place on PPI bid, consult GI ? if endoscopy warranted at later date Abnormal CT Head: Atherosclerotic plaque of the right carotid bulb results in approximately 70% stenosis. 3. Areas of short segment high-grade stenosis noted within the posterior cerebral arteries. Pt is already on ASA, will obtain lipid panel in the a.m., consider statin for risk reduction therapy; however is benefit > risk given age/dementia? DVT ppx: SQ heparin FULL CODE PCP: Marian @ [facility] Dispo: admit to PCU, will need PT/OT when appropriate Pt was seen and examined in collaboration with Dr. Bills, please see addendum I spent a total of 76 minutes reviewing notes, outpatient records, labs, medication, coordinating, documenting and providing care for this patient excluding time spent in the performance of separately billed services. History of Present Illness Chief Complaint: Referred to ED 2/2 increasing confusion. 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 History obtained from outpatient chart review as well as son and [id number]. Patient has underlying dementia but typically is able to hold a conversation. Currently he knows himself, but is unable to answer any pertinent question. In ED patient was felt to be septic due to leukocytosis and tachycardia. Urinalysis concerning for infection and a gentleman who has a chronic indwelling Balderrama catheter and prior history of recurrent urinary tract infections. CT abdomen pelvis reveal mild to moderate left-sided hydroureteronephrosis secondary to an obstructing 7 mm distal left ureteral calculus with additional calcifications in the region of the distal UPJ versus dependent urinary bladder measuring up to 5 mm. I discussed case with urology who obtained consent from son to proceed for urologic intervention secondary to sepsis and SPARKLE. Patient's baseline creatinine is 1.0. His current creatinine is 1.73. He also has a mild elevation his troponin 85.2. His procalcitonin is normal. Chest CT reveals cardiomegaly with fusiform dilation of the ascending thoracic aorta unchanged measuring 4.2 cm, mild interstitial pulmonary edema with trace right and left oral effusions with mild bibasilar atelectasis. Also noted was distending the upper to mid debris-filled esophagus with wall thickening and adjacent inflammatory stranding. Allergies Allergy/AdvReac Type Severity Reaction Status Date / Time Sulfa (Sulfonamide Allergy Unknown ON HARMONY Verified 06/25/24 01:56 Antibiotics) MED LIST Home Medications Medication Instructions Recorded Confirmed Type blood glucose control, high #1 ea 11/12/21 07/14/24 Rx (OneTouch Verio High Control solution) lancets 33 gauge (OneTouch Delica #120 ea 12/11/21 07/14/24 Rx Lancets) OneTouch Verio test strips (blood #400 ea 12/13/21 07/14/24 Rx sugar diagnostic) acetaminophen 325 mg tablet 650 mg (2 x 325 mg) PO Q8H PRN 08/02/24 10/23/24 Rx (Tylenol) Pain #30 tabs aspirin 81 mg tablet,delayed 81 mg PO QAM #30 tabs 08/02/24 10/23/24 Rx release cholecalciferol (vitamin D3) 25 1,000 units PO QAM #30 caps 08/02/24 10/23/24 Rx mcg (1,000 unit) capsule dutasteride 0.5 mg capsule 0.5 mg PO QAM #30 caps 08/02/24 10/23/24 Rx insulin aspart U-100 100 unit/mL 1 sliding scale dose subcut ACHS 08/02/24 10/23/24 Rx (3 mL) subcutaneous pen (Novolog #15 mL FlexPen U-100 Insulin aspart) memantine 10 mg tablet 10 mg PO BID 90 days #180 tabs 08/02/24 10/23/24 Rx methenamine hippurate 1 gram tablet 1 g PO BID #60 tabs 08/02/24 10/23/24 Rx metoprolol succinate 25 mg 12.5 mg (1/2 x 25 mg) PO QAM #90 08/02/24 10/23/24 Rx tablet,extended release 24 hr tabs pen needle, diabetic 32 gauge x #400 ea 08/02/24 Rx 5/32" vitamin B complex 1 cap PO QAM #30 caps 08/02/24 10/23/24 Rx Milk of Magnesia 30 ml PO DAILY PRN Constipation 10/23/24 10/23/24 History acetaminophen 325 mg tablet 650 mg PO DAILY PRN temp >100 10/23/24 10/23/24 History (Tylenol) bisacodyl 10 mg rectal suppository 10 mg NJ DAILY PRN Constipation 10/23/24 10/23/24 History (Dulcolax (bisacodyl)) buspirone 10 mg tablet 10 mg PO TID 10/23/24 10/23/24 History docusate sodium 100 mg capsule 100 mg PO DAILY PRN Constipation 10/23/24 10/23/24 History (Colace) guaifenesin 600 mg tablet, 600 mg PO UD 10/23/24 10/23/24 History extended release 12 hr (Mucinex) insulin degludec 100 unit/mL (3 16 unit subcut QAM 10/23/24 10/23/24 History mL) subcutaneous pen (Tresiba FlexTouch U-100 insulin) lisinopril 20 mg tablet 10 mg PO DAILY 10/23/24 10/23/24 History mirabegron 50 mg tablet,extended 50 mg PO UD 10/23/24 10/23/24 History release 24 hr polyethylene glycol 3350 17 17 g PO QAM 10/23/24 10/23/24 History gram/dose oral powder (Miralax) quetiapine 25 mg tablet 12.5 mg PO HS 10/23/24 10/23/24 History risperidone 0.25 mg tablet 0.25 mg PO HS 10/23/24 10/23/24 History Past Med/Surg History Problem List Abnormal abdominal CT scan Acute metabolic encephalopathy SPARKLE (acute kidney injury) (Acute) Severe sepsis (Acute) Left ureteral calculus (Acute) Urinary retention (Acute) Type 2 diabetes mellitus Altered mental status (Acute) Elevated troponin (Acute) Generalized weakness (Acute) Non-ST elevation HI (NSTEMI) (Acute) Fall from standing (Acute) Unresponsive episode Nitrofurantoin adverse reaction Acute alteration in mental status (Acute) History of gross hematuria Edema of both lower legs Dependent edema Incontinence (Chronic) Acute UTI (Acute) Paroxysmal atrial fibrillation Dyslipidemia Weakness (Acute) Moderate nonproliferative diabetic retinopathy BPH NOS w ur obs/LUTS (Chronic) Leukopenia Diabetes type 2, controlled Dementia Weakness (Acute) Influenza A (Acute) Confusion (Acute) Balanitis Incomplete emptying of bladder Gait abnormality Albuminuria 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 Bradycardia Elevated prostate specific antigen (PSA) (Chronic) Mild cognitive impairment Dermatitis (Chronic) LBBB (left bundle branch block) (Chronic) Presence of stent in LAD coronary artery (Chronic) Abnormal electrocardiogram (Chronic) Coronary atherosclerosis of [place] coronary vessel (Chronic 06/07/12) 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) Chronic rhinitis (Chronic) Dupuytrens contracture (Chronic) Dysesthesia (Chronic) Elevated PSA (Chronic) Hypertension (Chronic) Laryngopharyngeal reflux (Chronic) Leukopenia (Chronic) Microscopic hematuria (Chronic) Mild aortic regurgitation (Chronic) Mild aortic stenosis (Chronic) Mild mitral regurgitation (Chronic) Nephrolithiasis (Chronic) Vitamin D deficiency (Chronic) Medical History Fall COVID-19 Dementia Closed rib fracture Chronic anticoagulation Weakness Rhabdomyolysis Right rib fracture 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 Enlarged prostate with lower urinary tract symptoms (LUTS) Other and unspecified hyperlipidemia (06/07/12) Hematospermia Myocardial infarction (06/07/12) Nontoxic multinodular goiter PND (post-nasal drip) Sepsis (06/07/12) Pancytopenia (~2000) Left shoulder strain CHI (closed head injury) Surgical History History of tonsillectomy History of cataract surgery History of arthroscopy of knee History of cystoscopy History of colonoscopy Status post Mohs surgery S/P drug eluting coronary stent placement Family History Brother Coronary heart disease Father Angina pectoris Carcinoma of pancreas Myocardial infarction Mother Congestive heart failure Breast cancer Unknown Diabetes Heart disease Hypertension Daughter Breast cancer Denies family history of Ovarian cancer Prostate cancer Colorectal cancer Social History Smoking Status: Never smoker Tobacco Type: Cigarettes Second Hand Exposure: No; Do You Dip or Chew Tobacco: No; Hx Alcohol Use: No Hx Substance Use: No Preferred Language: Romansh Communication Ability: Effective Communication Ability Comment: Alert and oriented to person, periods of confusion. Visual Impairment: Limited Hearing Ability: Normal Residential Sales Associate Required: No Beliefs That Will Affect Care: None marital status: / Current Living Situation: Custodial Current Living Situation Comment: [place] current occupational status: retired How many Children do You have: 3 Feels Safe at Home: Yes Childhood Exposure to Second-Hand Smoke: No caffeine: Yes Dental Care, Regularly: Yes Physical Activity Frequency: 1-2 Times per Week Seatbelt Use: always Sunscreen Use: Yes Assistive Devices: Walker and Wheelchair Review of Systems Review of Systems: Unobtainable due to cognitive status Physical Exam Physical Exam: Constitutional: Elderly, M, [place], arousable to vocal stimuli, vitals as above, NAD Head: Normocephalic, Atraumatic Eyes: PERRL, conjunctivae normal, anicteric sclerae ENMT: external ear and nose normal, oropharynx normal dry membranes Neck: trachea midline, no thyromegaly normal visual inspection Respiratory: normal respiratory effort, lungs clear to auscultation, no wheeze, rales, rhonchi. Cardiovascular: RRR, 2/6 harsh CHRISTOPHER, no edema Vessels: no JVD or carotid bruit Chest: normal inspection of chest Abdomen: normal bowel sounds, soft, nontender, no hepatosplenomegaly Musculoskeletal: no cyanosis or clubbing, pt does not follow commands for MSK testing due to mental status Skin: no rashes, warm and dry normal turgor Neuro: no facial palsy, dysarthria noted Psychiatric: A+Ox1 only, drowsy, euthymic affect : +balderrama cath draining yellow urine Results & Data Results & Data Vital Signs (Past 12 Hours) Vital Signs Temp Pulse Pulse Resp BP BP Pulse Ox 10/23/24 14:30 95 H 20 145/79 H 93 10/23/24 14:17 95 H 10/23/24 14:00 94 H 19 135/82 94 10/23/24 13:42 99 H 35 H 140/121 H 94 10/23/24 12:30 92 H 17 144/80 H 95 10/23/24 12:30 94 H 23 144/80 H 95 10/23/24 12:00 88 21 140/86 95 10/23/24 10:23 93 10/23/24 10:15 72 10/23/24 10:04 36.5 C 71 19 109/61 95 O2 Del Method 10/23/24 14:30 Room Air 10/23/24 14:17 10/23/24 14:00 Room Air 10/23/24 13:42 10/23/24 12:30 Room Air 10/23/24 12:30 Room Air 10/23/24 12:00 Room Air 10/23/24 10:23 Room Air 10/23/24 10:15 10/23/24 10:04 Room Air Laboratory Results I have independently reviewed and interpreted patient's admitting labs including CBC, CMP, , PT/INR, mag, procal, ck and troponin. Diagnostic Findings Chest X-Ray 10/23/24 10:11 XR chest 1V portable HISTORY: 89 years-old Male weakness COMPARISON: 08/01/2024 TECHNIQUE: AP view the chest FINDINGS: Cardiac silhouette is enlarged. Pulmonary vascular congestion. Small pleural effusions with left basilar consolidation. No pneumothorax. Healed chronic left rib fractures. IMPRESSION: 1. Cardiomegaly with pulmonary vascular congestion. 2. Small pleural effusions with left basilar predominant consolidation. 3. Chronic left rib fractures. ACT 112: Negative or not required by law. The above report was generated using voice recognition software. It may contain grammatical, syntax or spelling errors. Electronically signed by: Elver Herron M.D. 10/23/2024 10:52 AM Head CTA 10/23/24 10:11 CT angio head w con, CT head/brain wo con, CT angio neck with con CLINICAL HISTORY: 89 years-old Male with ams, weak. Acute stroke like symptoms with weakness COMPARISON STUDY: Head CT 08/09/2024 TECHNIQUE: Unenhanced axial CT scan of the brain is performed. Subsequently, following the IV administration of 112 cc of Optiray, CT angiogram of the head and neck was performed. Images are reviewed in the axial, sagittal, and coronal planes. 3-D MIPS images are created and assessed. IV contrast was administered without complication. All measurements were obtained according to NASCET criteria. A dose lowering technique was utilized adhering to the principles of ALARA. CT DOSE: 3858.43 mGy.cm FINDINGS: CT BRAIN: There is no acute intracranial hemorrhage, midline shift, hydrocephalus, intracranial mass, territorial ischemia or abnormal extra-axial collections. Involutional changes with chronic microvascular ischemic disease. No abnormal intra-axial or extra-axial enhancement. Mastoid air cells and middle ear cavities are clear. No calvarial fracture. Prior bilateral lens repair. Paranasal sinuses are clear. CT ANGIOGRAM OF THE HEAD AND NECK: Three-vessel morphology of the thoracic aortic arch. Patency of the innominate and image subclavian arteries. Atherosclerotic plaque of the carotid bulbs. There is less than 50% stenosis on the right and approximately 70% stenosis on the right. The bilateral anterior and middle cerebral arteries are also patent. Calcified plaque of the V4 segment right vertebral artery causes mild stenosis. Short segment high-grade stenosis of the P1 segment left posterior tibial artery image 140. Additional focus of short segment high-grade stenosis of the right posterior cerebral artery on image 128. Cerebral venous sinuses are patent. Lung apices are clear without pneumothorax. Debris noted within the mildly distended upper thoracic esophagus which demonstrates circumferential wall thickening. Unremarkable soft tissues. Degenerative changes of the cervical spine without acute fracture. IMPRESSION: 1. No acute intracranial abnormality. 2. Atherosclerotic plaque of the right carotid bulb results in approximately 70% stenosis. 3. Areas of short segment high-grade stenosis noted within the posterior cerebral arteries. 4. No aneurysm, dissection or arterial occlusion. 5. Debris-filled mildly distended esophagus with wall thickening. Please refer to the chest CT of same day for additional findings. ACT 112: Negative or not required by law. The above report was generated using voice recognition software. It may contain grammatical, syntax or spelling errors. Electronically signed by: Elver Herron M.D. 10/23/2024 12:56 PM Neck CTA 10/23/24 10:11 CT angio head w con, CT head/brain wo con, CT angio neck with con CLINICAL HISTORY: 89 years-old Male with ams, weak. Acute stroke like symptoms with weakness COMPARISON STUDY: Head CT 08/09/2024 TECHNIQUE: Unenhanced axial CT scan of the brain is performed. Subsequently, following the IV administration of 112 cc of Optiray, CT angiogram of the head and neck was performed. Images are reviewed in the axial, sagittal, and coronal planes. 3-D MIPS images are created and assessed. IV contrast was administered without complication. All measurements were obtained according to NASCET criteria. A dose lowering technique was utilized adhering to the principles of ALARA. CT DOSE: 3858.43 mGy.cm FINDINGS: CT BRAIN: There is no acute intracranial hemorrhage, midline shift, hydrocephalus, intracranial mass, territorial ischemia or abnormal extra-axial collections. Involutional changes with chronic microvascular ischemic disease. No abnormal intra-axial or extra-axial enhancement. Mastoid air cells and middle ear cavities are clear. No calvarial fracture. Prior bilateral lens repair. Paranasal sinuses are clear. CT ANGIOGRAM OF THE HEAD AND NECK: Three-vessel morphology of the thoracic aortic arch. Patency of the innominate and image subclavian arteries. Atherosclerotic plaque of the carotid bulbs. There is less than 50% stenosis on the right and approximately 70% stenosis on the right. The bilateral anterior and middle cerebral arteries are also patent. Calcified plaque of the V4 segment right vertebral artery causes mild stenosis. Short segment high-grade stenosis of the P1 segment left posterior tibial artery image 140. Additional focus of short segment high-grade stenosis of the right posterior cerebral artery on image 128. Cerebral venous sinuses are patent. Lung apices are clear without pneumothorax. Debris noted within the mildly distended upper thoracic esophagus which demonstrates circumferential wall thickening. Unremarkable soft tissues. Degenerative changes of the cervical spine without acute fracture. IMPRESSION: 1. No acute intracranial abnormality. 2. Atherosclerotic plaque of the right carotid bulb results in approximately 70% stenosis. 3. Areas of short segment high-grade stenosis noted within the posterior cerebral arteries. 4. No aneurysm, dissection or arterial occlusion. 5. Debris-filled mildly distended esophagus with wall thickening. Please refer to the chest CT of same day for additional findings. ACT 112: Negative or not required by law. The above report was generated using voice recognition software. It may contain grammatical, syntax or spelling errors. Electronically signed by: Elver Herron M.D. 10/23/2024 12:[address] 10/23/24 10:12 CT angio head w con, CT head/brain wo con, CT angio neck with con CLINICAL HISTORY: 89 years-old Male with ams, weak. Acute stroke like symptoms with weakness COMPARISON STUDY: Head CT 08/09/2024 TECHNIQUE: Unenhanced axial CT scan of the brain is performed. Subsequently, following the IV administration of 112 cc of Optiray, CT angiogram of the head and neck was performed. Images are reviewed in the axial, sagittal, and coronal planes. 3-D MIPS images are created and assessed. IV contrast was administered without complication. All measurements were obtained according to NASCET criteria. A dose lowering technique was utilized adhering to the principles of ALARA. CT DOSE: 3858.43 mGy.cm FINDINGS: CT BRAIN: There is no acute intracranial hemorrhage, midline shift, hydrocephalus, intracranial mass, territorial ischemia or abnormal extra-axial collections. Involutional changes with chronic microvascular ischemic disease. No abnormal intra-axial or extra-axial enhancement. Mastoid air cells and middle ear cavities are clear. No calvarial fracture. Prior bilateral lens repair. Paranasal sinuses are clear. CT ANGIOGRAM OF THE HEAD AND NECK: Three-vessel morphology of the thoracic aortic arch. Patency of the innominate and image subclavian arteries. Atherosclerotic plaque of the carotid bulbs. There is less than 50% stenosis on the right and approximately 70% stenosis on the right. The bilateral anterior and middle cerebral arteries are also patent. Calcified plaque of the V4 segment right vertebral artery causes mild stenosis. Short segment high-grade stenosis of the P1 segment left posterior tibial artery image 140. Additional focus of short segment high-grade stenosis of the right posterior cerebral artery on image 128. Cerebral venous sinuses are patent. Lung apices are clear without pneumothorax. Debris noted within the mildly distended upper thoracic esophagus which demonstrates circumferential wall thickening. Unremarkable soft tissues. Degenerative changes of the cervical spine without acute fracture. IMPRESSION: 1. No acute intracranial abnormality. 2. Atherosclerotic plaque of the right carotid bulb results in approximately 70% stenosis. 3. Areas of short segment high-grade stenosis noted within the posterior cerebral arteries. 4. No aneurysm, dissection or arterial occlusion. 5. Debris-filled mildly distended esophagus with wall thickening. Please refer to the chest CT of same day for additional findings. ACT 112: Negative or not required by law. The above report was generated using voice recognition software. It may contain grammatical, syntax or spelling errors. Electronically signed by: Elver Herron M.D. 10/23/2024 12:56 PM Abdomen/Pelvis CT 10/23/24 11:11 CT chest diagnostic wo con, CT abd pelvis wo con CLINICAL HISTORY: 89 years-old Male with weak, ams, SPARKLE. Acute chest abdominal pain with weakness TECHNIQUE: Multiaxial CT images of the chest, abdomen and pelvis were performed without contrast. A dose lowering technique was utilized adhering to the principles of ALARA. COMPARISON: CT abdomen and pelvis 12/16/2023, CT chest 06/29/2021 FINDINGS: CT CHEST: No thyroid nodule or lymphadenopathy. Cardiomegaly with extensive coronary artery calcifications. Trace pericardial effusion. Atherosclerosis of the thoracic aorta with mild fusiform dilation of the ascending segment, 4.2 x 4.2 cm, unchanged from prior. Mild dilation of the pulmonary arteries suggestive of pulmonary arterial hypertension. No lymphadenopathy. Trace right and moderate left pleural effusions. Areas of mild pleural thickening noted on the left. No pneumothorax. Left right dependent bibasilar opacities suggestive of atelectasis. Intralobular septal thickening. Esophageal wall thickening noted along with esophageal distention and mild adjacent inflammatory stranding debris-filled upper to mid esophagus. Unremarkable soft tissues. Healing subacute-appearing bilateral rib fractures. No acute fracture identified. CT ABDOMEN/PELVIS: There is no pneumatosis or pneumoperitoneum. Unremarkable spleen, atrophic pancreas and adrenal glands. Distended gallbladder with cholelithiasis. A tiny punctate stone is seen within the alexys hepatis which is unchanged from prior. Unremarkable liver. 3 mm nonobstructing calculus of the inferior pole right kidney. There is a punctate calcification involving the left renal sinus on image 147. There is decreased amount of left renal calculi compared to the prior. There is moderate left-sided hydroureteronephrosis with perinephric and periureteral stranding. There is an obstructing 7 mm distal left ureteral calculus on image 288. Additional clustered calcifications within the region of the distal UPJ versus dependent bladder measuring up to 5 mm. A Balderrama catheter is noted within the bladder. Wall thickening of the bladder with perivesicular stranding. Prostatomegaly. Atherosclerosis of the aorta. Moderate colonic fecal retention. No bowel obstruction or bowel wall thickening. Unremarkable soft tissues. No acute fracture. 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 IMPRESSION: 1. Cardiomegaly with fusiform dilation of the ascending thoracic aorta, unchanged from prior measuring 4.2 cm. 2. Mild interstitial pulmonary edema with trace right and moderate left pleural effusions with left greater than right bibasilar atelectasis. 3. Mild pleural thickening at the left lung base. 4. Distended upper to mid debris filled esophagus with wall thickening and adjacent inflammatory stranding. Findings could be correlated with endoscopy. 5. Healing subacute bilateral rib fractures without pneumothorax. 6. Qrko-gv-oitrpome left-sided hydroureteronephrosis secondary to an obstructing 7 mm distal left ureteral calculus with additional calcifications in the region of the distal UPJ versus dependent urinary bladder measuring up to 5 mm. 7. No bowel obstruction or bowel wall thickening. 8. Additional findings as above. ACT 112: Negative or not required by law. Electronically signed by: Elver Herron M.D. 10/23/2024 1:[address] 10/23/24 11:11 CT chest diagnostic wo con, CT abd pelvis wo con CLINICAL HISTORY: 89 years-old Male with weak, ams, SPARKLE. Acute chest abdominal pain with weakness TECHNIQUE: Multiaxial CT images of the chest, abdomen and pelvis were performed without contrast. A dose lowering technique was utilized adhering to the principles of ALARA. COMPARISON: CT abdomen and pelvis 12/16/2023, CT chest 06/29/2021 FINDINGS: CT CHEST: No thyroid nodule or lymphadenopathy. Cardiomegaly with extensive coronary artery calcifications. Trace pericardial effusion. Atherosclerosis of the thoracic aorta with mild fusiform dilation of the ascending segment, 4.2 x 4.2 cm, unchanged from prior. Mild dilation of the pulmonary arteries suggestive of pulmonary arterial hypertension. No lymphadenopathy. Trace right and moderate left pleural effusions. Areas of mild pleural thickening noted on the left. No pneumothorax. Left right dependent bibasilar opacities suggestive of atelectasis. Intralobular septal thickening. Esophageal wall thickening noted along with esophageal distention and mild adjacent inflammatory stranding debris-filled upper to mid esophagus. Unremarkable soft tissues. Healing subacute-appearing bilateral rib fractures. No acute fracture identified. CT ABDOMEN/PELVIS: There is no pneumatosis or pneumoperitoneum. Unremarkable s pleen, atrophic pancreas and adrenal glands. Distended gallbladder with cholelithiasis. A tiny punctate stone is seen within the alexys hepatis which is unchanged from prior. Unremarkable liver. 3 mm nonobstructing calculus of the inferior pole right kidney. There is a punctate calcification involving the left renal sinus on image 147. There is decreased amount of left renal calculi compared to the prior. There is moderate left-sided hydroureteronephrosis with perinephric and periureteral stranding. There is an obstructing 7 mm distal left ureteral calculus on image 288. Additional clustered calcifications within the region of the distal UPJ versus dependent bladder measuring up to 5 mm. A Balderrama catheter is noted within the bladder. Wall thickening of the bladder with perivesicular stranding. Prostatomegaly. Atherosclerosis of the aorta. Moderate colonic fecal retention. No bowel obstruction or bowel wall thickening. Unremarkable soft tissues. No acute fracture. 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 IMPRESSION: 1. Cardiomegaly with fusiform dilation of the ascending thoracic aorta, unchanged from prior measuring 4.2 cm. 2. Mild interstitial pulmonary edema with trace right and moderate left pleural effusions with left greater than right bibasilar atelectasis. 3. Mild pleural thickening at the left lung base. 4. Distended upper to mid debris filled esophagus with wall thickening and adjacent inflammatory stranding. Findings could be correlated with endoscopy. 5. Healing subacute bilateral rib fractures without pneumothorax. 6. [id number]-[id number] left-sided hydroureteronephrosis secondary to an obstructing 7 mm distal left ureteral calculus with additional calcifications in the region of the distal UPJ versus dependent urinary bladder measuring up to 5 mm. 7. No bowel obstruction or bowel wall thickening. 8. Additional findings as above. ACT 112: Negative or not required by law. Electronically signed by: Elver Herron M.D. 10/23/2024 1:08 PM Medications Administered Medication List Discontinued Medications Piperacillin Sod/Tazobactam Sod (Zosyn) 4.5 gm in 100 mls @ 200 mls/hr IV NOW ONE; Protocol Stop: 10/23/24 12:22 Last Infusion: 10/23/24 13:18 Dose: Infused Documented By: Admin: 10/23/24 12:45 Dose: 200 mls/hr Documented By: ARCHANA Sodium Chloride (Nss) 500 mls @ 999 mls/hr IV .Q31M ONE Stop: 10/23/24 12:39 Last Infusion: 10/23/24 13:18 Dose: Infused Documented By: Admin: 10/23/24 12:45 Dose: 999 mls/hr Documented By: ARCHANA Ioversol (Optiray 320 125ml) 112 ml IV ONCE ONE Stop: 10/23/24 11:46 Last Admin: 10/23/24 11:45 Dose: 112 ml Documented By: MELVIN ECG Additional Comments: I have independently reviewed and interpreted patient's admitting EKG which revealed: 69 NSR 1st degree avb, LBBB COVID-19 Results Results COVID-19 Adm Lab Results: RBC 2.96 M/uL (4.70-6.10) L 10/24/24 WBC 13.84 K/ul (4.8-10.8) H 10/24/24 Hgb 9.8 g/dl (14.0-18.0) L 10/24/24 Hct 29.8 % (42.0-52.0) L 10/24/24 Plt Count 172 K/uL (130-400) 10/24/24 Neutrophils (%) (Auto) 83.5 % 10/24/24 Lymphocytes (%) (Auto) 4.6 % 10/24/24 Monocytes # (Auto) 1.00 K/uL (0.11-0.59) H 10/24/24 Eosinophils # (Auto) 0.54 K/uL (0.00-0.50) H 10/24/24 Immature Granulocyte % (Auto) 0.6 % 10/24/24 Neutrophils # (Auto) 11.56 K/uL (1.40-6.50) H 10/24/24 Lymphocytes # (Auto) 0.63 K/uL (1.20-3.40) L 10/24/24 Monocytes # (Auto) 1.00 K/uL (0.11-0.59) H 10/24/24 Eosinophils # (Auto) 0.54 K/uL (0.00-0.50) H 10/24/24 Basophils # (Auto) 0.03 K/uL (0.00-0.20) 10/24/24 Immature Granulocyte # (Auto) 0.08 K/uL (0.01-0.20) 4 Na 145 mmol/L (136-145) 10/24/24 K 4.3 mmol/L (3.5-5.1) 10/24/24 Cl 110 mmol/L (98-107) H 10/24/24 CO2 28 mmol/L (21-32) 10/24/24 Anion Gap 7 (3-11) 10/24/24 BUN 29 mg/dl (6-23) H 10/24/24 Creatinine 1.56 mg/dl (0.6-1.4) H 10/24/24 BUN/Creatinine Ratio 18.6 (10-20) 10/24/24 Glucose Level 94 mg/dl (70-99(Fasting)) 10/24/24 Ca 8.4 mg/dl (8.6-10.3) L 10/24/24 Phosphorus Level 3.7 mg/dl (2.5-4.9) 10/24/24 Total Bilirubin 1.1 mg/dl (0.2-1.0) H 10/24/24 AST/SGOT 11 U/L (13-39) L 10/24/24 ALT/SGPT 7 U/L (7-52) 10/24/24 Alkaline Phosphatase 72 U/L (34-104) 10/24/24 Total Protein 5.3 gm/dl (6.0-8.3) L 10/24/24 Albumin 2.7 gm/dl (3.4-5.0) L 10/24/24 Globulin 2.6 gm/dl (2.5-4.0) 10/24/24 Albumin/Globulin Ratio 1.0 (0.9-2) 10/24/24 Total CK 26 U/L (30-223) L 10/23/24 Procalcitonin 0.21 ng/ml (0-0.5) 10/23/24 INR 1.1 (0.9-1.1) 10/23/24 Triglycerides Level 97 mg/dl (0-150) 10/24/24 Adenovirus (PCR) Not Detected (NotDetected) 10/23/24 B. parapertussis DNA (PCR) Not Detected (NotDetected) 07/09 B. pertussis DNA (PCR) Not Detected (NotDetected) 10/23/24 C. pneumoniae DNA (PCR) Not Detected (NotDetected) 4 Coronavirus Type OC43 (PCR) Not Detected (NotDetected) 07/09 Coronavirus Type HKU1 (PCR) Not Detected (NotDetected) 07/09 Coronavirus Type 229E (PCR) Not Detected (NotDetected) 07/09 COVID-19 PCR Not Detected (NotDetected) 10/23/24 Coronavirus Type NL63 (PCR) Not Detected (NotDetected) 07/09 Human Metapneumovirus (PCR) Not Detected (NotDetected) 07/09 Influenza Virus Type A (PCR) Not Detected (NotDetected) Influenza Virus Type B (PCR) Not Detected (NotDetected) M. pneumoniae (PCR) Not Detected (NotDetected) 10/23/24 Parainfluenza Type 1 (PCR) Not Detected (NotDetected) 07/09 Parainfluenza Type 2 (PCR) Not Detected (NotDetected) 07/09 Parainfluenza Type 3 (PCR) Not Detected (NotDetected) 07/09 Parainfluenza Type 4 (PCR) Not Detected (NotDetected) 07/09 RSV (PCR) Not Detected (NotDetected) 10/23/24 Enterovirus/Rhinovirus (PCR) Not Detected (NotDetected) Chest CT 10/23/24 Chest X-Ray 10/23/24 Code Status & VTE Plan Code Status FULL CODE VTE Prophylaxis Plan VTE Prophylaxis will be ordered: Yes Supervising Physician Co-Signing Physician Notes Pt seen and examined by me , care coordinated with Sammie Barragan PA-C, pls refer to her note above for further detail. 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 History obtained from outpatient chart review as well as son and abauwyvv-[id number] present at the bedside. CT abdomen pelvis reveal mild to moderate left-sided hydroureteronephrosis secondary to an obstructing 7 mm distal left ureteral calculus with additional calcifications in the region of the distal UPJ versus dependent urinary bladder measuring up to 5 mm. Urology consulted and pt will be taken to OR for ureteral stent. Pt is currently in NAD but does not really answer questions. Lungs are CTAB, heart sounds regular + murmur, abdomen soft, nontender, + balderrama w/ yellow urine. No LE edema. Cont. IV abx, await ucultx , blood cultx. MD Sanju
[2024-10-23] MEDS: DIATRIZOATE MEGLUMINE 30% 100ML VIAL INSTIL PRN (15:20)
[2024-10-23] MEDS: VANCOMYCIN HCL 1,750 MG in SODIUM CHLORIDE 0.9% 500 ML IV STA (15:25)
--- NOTE | 2024-10-23 15:42 | Operative Report ---
PG Post Operative Report Pre & Post Diagnosis Operation Date: 10/23/24 15:00 Pre-Op Diagnosis: Left Ureteral Calculus Post-Op Diagnosis: Left Ureteral Calculus I identified the patient and participated in the time-out.: Yes Procedure Operation Date: 10/23/24 15:00 Actual Procedures p Cystoscopy, Retrograde Pyelogram with radiographic interpretation, Insertion of Left Ureteral Stent(Left) - Fernando Peters MD Surgeon Fernando Peters MD Program Specialist None Estimated Blood Loss 0 Findings See Below Moderate left hydronephrosis. Significant purulent discharge from left UO. Stent in appropriate position. Specimens None Drains 6 Jordanian by 26 cm left ureteral stent and 16 Jordanian Arceo catheter with 10 cc in balloon Anesthesia Type MAC Complications none Indications 89-year-old male with dementia and a left distal obstructing ureteral calculus and concerns for UTI Description of Procedure After informed consent was obtained, the patient was transported operative suite. MAC anesthesia was induced. The patient was placed in dorsal lithotomy position prepped and draped in a sterile fashion. They received preoperative vancomycin and Zosyn for antibiotic prophylaxis. An appropriate surgical timeout was performed. A 22 Jordanian rigid scope was inserted per urethra into the bladder. Maldonado cystoscopy revealed no stones or lesions. I turned my attention the left ureteral orifice and intubated this with a 5 Jordanian open-ended catheter. A left retrograde pyelogram was shot which showed moderate left hydronephrosis. There is significant purulent discharge from the left UO.. A sensor wire was advanced into the kidney and confirmed fluoroscopically. A 6 Jordanian by 26 cm left ureteral stent was deployed with a good proximal coil in the renal pelvis and a good distal coil noted in the bladder. These were confirmed fluoroscopically and under direct visualization, respectively. The bladder was left full and the scope was removed. 16 Jordanian Arceo catheter was inserted with return of urine and the balloon was inflated with 10 cc of sterile water. This concluded the end of the case. All counts were correct at the end of the case. I was present, scrubbed, and actively participated for the entirety of the procedure. I attest to the content of the Intraoperative Record and any orders documented therein. Any exceptions are noted below.
--- NOTE | 2024-10-23 16:09 | Anesthesiology Progress Note ---
Date of Service October 23, 2024 Anesthesia Post Procedure Vital Signs Vital Signs: Temp Pulse Pulse Resp BP BP BP 10/23/24 15:55 86 15 104/57 L 10/23/24 15:46 36.2 C L 91 H 17 117/61 10/23/24 14:30 95 H 20 145/79 H 10/23/24 14:17 95 H 10/23/24 14:00 94 H 19 135/82 10/23/24 13:42 99 H 35 H 140/121 H 10/23/24 12:30 92 H 17 144/80 H 10/23/24 12:30 94 H 23 144/80 H 10/23/24 12:00 88 21 140/86 10/23/24 10:23 10/23/24 10:15 72 10/23/24 10:04 36.5 C 71 19 109/61 Pulse Ox O2 Del Method O2 Flow Rate 10/23/24 15:55 99 Oxymask 2 10/23/24 15:46 94 Oxymask 4 10/23/24 14:30 93 Room Air 10/23/24 14:17 10/23/24 14:00 94 Room Air 10/23/24 13:42 94 10/23/24 12:30 95 Room Air 10/23/24 12:30 95 Room Air 10/23/24 12:00 95 Room Air 10/23/24 10:23 93 Room Air 10/23/24 10:15 10/23/24 10:04 95 Room Air Transfer of Care Handoff Completed per policy Notes Mental Status: alert / awake / arousable and participated in evaluation Patient Amnestic to Procedure: Yes Nausea / Vomiting: adequately controlled Pain: adequately controlled Airway Patency, RR, SpO2: stable & adequate BP & HR: stable & adequate Hydration State: stable & adequate Anesthetic Complications: no major complications apparent and Pt Satisfied with anesthetic care
--- NOTE | 2024-10-23 16:33 | Pharmacy Report ---
Pharmacy PK ABX Note - Date of Service October 23, 2024 - Assessment and Plan Assessment 89 year old M receiving Vancomycin and Zosyn for treatment of urosepsis. * Day #1 of antimicrobial therapy. * Afebrile. Leukocytosis 15k. SCr 1.73 mg/dL. Procal at 0.21 and lactate normal. * Blood and urine cultures pending. Patient to OR for cystoscopy and ureteral stent. Plan Vancomycin * Loading dose: 1750 mg IV x 1 * Maintenance dose: 750 mg IV every 24 hours * Regimen is predicted to achieve target AUC/CHAYITO of 400-600 mg/L.hr * Levels will be ordered should therapy extend beyond 48 hours. Pharmacy will continue to follow and will adjust dose/frequency as necessary. Thank you. Pharmacy has transitioned to AUC monitoring for vancomycin. AUC/CHAYITO is the preferred PK/PD target and is associated with decreased risk of nephrotoxicity compared to traditional trough targets.
[2024-10-23] MEDS ORDERED: GLUCOSE 40% GEL 15 GM TUBE PO PRN (17:21)
[2024-10-23] MEDS ORDERED: GLUCAGON FOR INJ 1 MG VIAL SQ PRN (17:21)
[2024-10-23] MEDS ORDERED: ACETAMINOPHEN 325 MG TAB PO PRN (17:21)
[2024-10-23] MEDS ORDERED: GLUCOSE 10 TAB/TUBE PO PRN (17:21)
[2024-10-23] MEDS ORDERED: PHARMACY GLYCEMIC MGMT CONSULT PRN (17:21)
[2024-10-23] MEDS ORDERED: CARBOHYDRATES FOR HYPOGLYCEMIA PO PRN (17:21)
[2024-10-23] MEDS: INSULIN ASPART PER UNIT CHARGE SC SCH (17:45)
[2024-10-23] MEDS: SODIUM CHLORIDE 0.9% 1,000 ML IV SCH (18:04)
[2024-10-23] MEDS: busPIRone 5 MG TAB PO SCH (20:57)
[2024-10-23] MEDS: PANTOprazole 40 MG TAB PO SCH (20:58)
[2024-10-23] MEDS: QUEtiapine FUMARATE 25 MG TABLET PO SCH (20:58)
[2024-10-23] MEDS: MEMANTINE HCL 10 MG TAB PO SCH (20:58)
[2024-10-23] MEDS: LANTUS PER UNIT CHARGE SQ SCH (20:58)
[2024-10-23] MEDS: risperiDONE 0.25 MG TAB PO SCH (20:59)
[2024-10-23] MEDS: PIPERACILLIN/TAZOBACTAM 4.5 GM/100 ML BAG IV SCH (21:01)
[2024-10-23] MEDS: DEXTROSE 50% 50 ML SYRINGE IV PRN (21:27)
[2024-10-23] MEDS: HEPARIN SOD 5,000 UNIT/0.5 ML VIAL SQ SCH (22:10)
[2024-10-24 07:04] LABS: Basophils # (auto) 0.03 K/uL (0.00-0.20); Basophils % (auto) 0.2 %; Eosinophils # (auto) 0.54 K/uL (0.00-0.50); Eosinophils % (auto) 3.9 %; Hematocrit (blood only) 29.8 % (42.0-52.0); Hemoglobin 9.8 g/dl (14.0-18.0); Immature Granulocytes # (auto) 0.08 K/uL (0.01-0.20); Immature Granulocytes % (auto) 0.6 %; Lymphocytes # (auto) 0.63 K/uL (1.20-3.40); Lymphocytes % (auto) 4.6 %; Mean Corpuscular Hemoglobin 33.1 pg (25.0-34.0); Mean Corpuscular Hgb Conc 32.9 g/dL (32.0-36.0); Mean Corpuscular Volume 100.7 fL (80.0-100.0); Mean Platelet Volume 9.4 fL (9.4-12.4); Monocytes % (auto) 7.2 %; Neutrophils # (auto) 11.56 K/uL (1.40-6.50); Neutrophils % (auto) 83.5 %; Platelet Count 172 K/uL (130-400); RDW Coefficient of Variation 14.1 % (11.5-14.5); RDW Standard Deviation 51.8 fL (36.4-46.3); Red Blood Count 2.96 M/uL (4.70-6.10); White Blood Count 13.84 K/ul (4.8-10.8)
[2024-10-24 07:19] LABS: Albumin Level 2.7 gm/dl (3.4-5.0); BUN Creatinine Ratio 18.6 (10-20); Bilirubin,Total 1.1 mg/dl (0.2-1.0); Calcium 8.4 mg/dl (8.6-10.3); Chol HDL Ratio 3.1 (0-5); Creatinine Clr Calc Pharmacy 32.1 ml/min; Globulin 2.6 gm/dl (2.5-4.0); Phosphorus 3.7 mg/dl (2.5-4.9); Potassium 4.3 mmol/L (3.5-5.1); Total Protein 5.3 gm/dl (6.0-8.3)
--- NOTE | 2024-10-24 07:58 | Hospitalist Progress Note ---
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 Severe Sepsis SPARKLE Complicated UTI Metabolic encephalopathy mild to moderate left-sided hydroureteronephrosis secondary to an obstructing 7 mm distal ureteral calculus Admitted to PCU Urology consulted - s/p emergent intervention - ureteral stent placement (10/23/24) outpt records reviewed pt recently treated with cefnidir and doxy for UTI consistent with Enterococcus and E. coli blood/urine cultures obtained Tx with empiric Vanco/Zosyn until culture results + continue gentle IVF in setting of concern for volume overload Baseline Cr 1.0, follow post intervention and hydration Cr 1.7 on admission -> now down to 1.5, cont. 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 Elevated troponin cont asa, metoprolol; hold lisinopril 2/2 SPARKLE Echocardiogram obtained, cycle trops suspect troponin elevation in setting of demand ischemia due to sepsis, no true NSTEMI BPH/LUTS with chronic indwelling balderrama and recurrent UTI : follows urology, hold methenamine hippurate, continue dutasteride Severe late onset Alzheimer's dementia with agitation: continue namenda, buspar, seroquel and risperdal, delirium precautions, follows Psych at [facility] Dr. Dinh Anemia: hgb stable at 11.8, no s/sx of bleeding monitor Abnormal CT Chest: findings: Distended upper to mid debris filled esophagus wit h wall thickening and adjacent inflammatory stranding. Findings could be correlated with endoscopy., place on PPI bid, consult GI ? if endoscopy warranted at later date Abnormal CT Head: Atherosclerotic plaque of the right carotid bulb results in approximately 70% stenosis. 3. Areas of short segment high-grade stenosis noted within the posterior cerebral arteries. Pt is already on ASA, will obtain lipid panel , consider statin for risk reduction therapy; however is benefit > risk given age/dementia? DVT ppx: SQ heparin FULL CODE PCP: Dr. Fonseca @ [facility] Dispo: PCU, will need PT/OT when appropriate Admission and Anticipated Discharge Date Admission Date: October 23, 2024 Subjective Pt seen in follow up of UTI, SPARKLE, AMS (in setting of dementia), ureteral stone s/p stenting w/ urology yesterday Currently sitting up in bed in NAD, RN at the bedside and discussed with Pt more awake but not able to provide full ROS Cr improved Ucultx pending Review of Systems Review of Systems: Unobtainable due to cognitive status Physical Exam Physical Exam: Constitutional: Elderly, M, [place], arousable to vocal stimuli,NAD Head: Normocephalic, Atraumatic Eyes: PERRL, conjunctivae normal, anicteric sclerae ENMT: external ear and nose normal Neck: normal visual inspection Respiratory: normal respiratory effort, lungs clear to auscultation, no wheeze, rales, rhonchi. Cardiovascular: RRR, 2/6 CHRISTOPHER, no edema Vessels: no JVD Chest: normal inspection of chest Abdomen: normal bowel sounds, soft, nontender Musculoskeletal: pt does not follow commands for MSK testing due to mental status Skin: no rashes, warm and dry Neuro: no facial palsy, dysarthria noted Psychiatric: A+Ox1 only, drowsy, euthymic affect : +balderrama cath draining yellow urine Results & Data Results & Data Vital Signs (Past 12 Hours) Vital Signs Temp Pulse Pulse Resp BP Pulse Ox O2 Del Method 10/24/24 07:51 37.7 C H 63 17 106/59 L 93 Room Air 10/24/24 03:47 36.9 C 78 22 109/54 L 93 Room Air 10/24/24 00:03 81 10/23/24 23:47 Room Air 10/23/24 23:32 37.1 C 80 18 123/55 L 94 Room Air Laboratory Results 10/24/24 10/24/24 10/24/24 Range/Units 06:29 05:32 00:49 WBC 13.84 H (4.8-10.8) K/ul RBC 2.96 L (4.70-6.10) M/uL Hgb 9.8 L (14.0-18.0) g/dl POC Hgb (14.0-18.0) g/dl Hct 29.8 L (42.0-52.0) % POC Hct (42-52) % MCV 100.7 H (80.0-100.0) fL MCH 33.1 (25.0-34.0) pg MCHC 32.9 (32.0-36.0) g/dL RDW Std Deviation 51.8 H (36.4-46.3) fL RDW Coeff of Anaid 14.1 (11.5-14.5) % Plt Count 172 (130-400) K/uL MPV 9.4 (9.4-12.4) fL Immature Gran % (Auto) 0.6 % Neut % (Auto) 83.5 % Lymph % (Auto) 4.6 % Levy % (Auto) 7.2 % Eos % (Auto) 3.9 % Baso % (Auto) 0.2 % Neut # (Auto) 11.56 H (1.40-6.50) K/uL Lymph # (Auto) 0.63 L (1.20-3.40) K/uL Levy # (Auto) 1.00 H (0.11-0.59) K/uL Eos # (Auto) 0.54 H (0.00-0.50) K/uL Baso # (Auto) 0.03 (0.00-0.20) K/uL Immature Gran # (Auto) 0.08 (0.01-0.20) K/uL PT (9.0-12.0) Seconds INR (0.9-1.1) POC Sodium (135-144) mmol/L Sodium 145 (136-145) mmol/L POC Potassium (3.3-5.0) mmol/L Potassium 4.3 (3.5-5.1) mmol/L POC Chloride (101-112) mmol/L Chloride 110 H (98-107) mmol/L Carbon Dioxide 28 (21-32) mmol/L POC Total CO2 (24-31) mmol/L Anion Gap 7 (3-11) POC Anion Gap (16-25) mmol/L POC BUN (7-18) mg/dl BUN 29 H (6-23) mg/dl Creatinine 1.56 H (0.6-1.4) mg/dl POC Creatinine (0.6-1.3) mg/dl Est Cr Clr Drug Dosing 32.1 eGFR 42.19 BUN/Creatinine Ratio 18.6 (10-20) Glucose 94 (70-99(Fasting)) mg/dl POC Glucose 105 H (70-99) mg/dl POC Glucose (other) (70-99) mg/dl Estimat Average Glucose Pending Hemoglobin A1c Pending Lactate (0.4-2.0) mmol/L Calcium 8.4 L (8.6-10.3) mg/dl POC Ioniz Calcium Jose Rafael (1.12-1.32) mmol/l Phosphorus 3.7 (2.5-4.9) mg/dl Magnesium 2.0 (1.7-2.4) mg/dl Total Bilirubin 1.1 H (0.2-1.0) mg/dl AST 11 L (13-39) U/L ALT 7 (7-52) U/L Alkaline Phosphatase 72 (34-104) U/L Total Creatine Kinase (30-223) U/L Troponin I High Sens 100.2 H* (0-20) pg/ml Total Protein 5.3 L (6.0-8.3) gm/dl Albumin 2.7 L (3.4-5.0) gm/dl Globulin 2.6 (2.5-4.0) gm/dl Albumin/Globulin Ratio 1.0 (0.9-2) Triglycerides 97 (0-150) mg/dl Cholesterol 113 (0-200) mg/dl LDL Cholesterol, Calc 58 mg/dl VLDL Cholesterol, Calc 19 (0-30) mg/dl HDL Cholesterol 36 mg/dl Cholesterol/HDL Ratio 3.1 (0-5) Procalcitonin (0-0.5) ng/ml TSH (0.300-4.500) uIu/ml Urine Color Urine Appearance (Clear) Urine pH (4.5-7.5) Ur Specific [place] (1.000-1.030) Urine Protein (Negative) Urine Glucose (UA) (Negative) Urine Ketones (Negative) Urine Blood (Negative) Urine Nitrite (Negative) Urine Bilirubin (Negative) Urine Urobilinogen (Negative) Ur Leukocyte Esterase (Negative) Urine WBC (Auto) (0-5) /hpf Urine RBC (Auto) (0-2) /hpf U Hyaline Cast (Auto) (0-2) /lpf U Epithel Cells (Auto) (0-2) /hpf Urine Bacteria (Auto) (None Seen) Urine Yeast (None Prsent) Nasal Screen MRSA (PCR) (Negative) Adenovirus (PCR) (NotDetected) B. pertussis DNA (PCR) (NotDetected) B.parapertussis DNA PCR (NotDetected) C. pneumoniae DNA (PCR) (NotDetected) Coronavirus OC43 (PCR) (NotDetected) Coronavirus HKU1 (PCR) (NotDetected) Coronavirus 229E (PCR) (NotDetected) SARS-CoV-2 (PCR) (NotDetected) Coronavirus NL63 (PCR) (NotDetected) Human Metapneumovir PCR (NotDetected) Influenza Type A (PCR) (NotDetected) Influenza Type B (PCR) (NotDetected) M. pneumoniae (PCR) (NotDetected) Parainfluenza 1 (PCR) (NotDetected) Parainfluenza 2 (PCR) (NotDetected) Parainfluenza 3 (PCR) (NotDetected) Parainfluenza 4 (PCR) (NotDetected) RSV (PCR) (NotDetected) Entero/Rhino (PCR) (NotDetected) 10/23/24 10/23/24 10/23/24 Range/Units 23:57 22:21 21:49 WBC (4.8-10.8) K/ul RBC (4.70-6.10) M/uL Hgb (14.0-18.0) g/dl POC Hgb (14.0-18.0) g/dl Hct (42.0-52.0) % POC Hct (42-52) % MCV (80.0-100.0) fL MCH (25.0-34.0) pg MCHC (32.0-36.0) g/dL RDW Std Deviation (36.4-46.3) fL RDW Coeff of Anaid (11.5-14.5) % Plt Count (130-400) K/uL MPV (9.4-12.4) fL Immature Gran % (Auto) % Neut % (Auto) % Lymph % (Auto) % Levy % (Auto) % Eos % (Auto) % Baso % (Auto) % Neut # (Auto) (1.40-6.50) K/uL Lymph # (Auto) (1.20-3.40) K/uL Levy # (Auto) (0.11-0.59) K/uL Eos # (Auto) (0.00-0.50) K/uL Baso # (Auto) (0.00-0.20) K/uL Immature Gran # (Auto) (0.01-0.20) K/uL PT (9.0-12.0) Seconds INR (0.9-1.1) POC Sodium (135-144) mmol/L Sodium (136-145) mmol/L POC Potassium (3.3-5.0) mmol/L Potassium (3.5-5.1) mmol/L POC Chloride (101-112) mmol/L Chloride (98-107) mmol/L Carbon Dioxide (21-32) mmol/L POC Total CO2 (24-31) mmol/L Anion Gap (3-11) POC Anion Gap (16-25) mmol/L POC BUN (7-18) mg/dl BUN (6-23) mg/dl Creatinine (0.6-1.4) mg/dl POC Creatinine (0.6-1.3) mg/dl Est Cr Clr Drug Dosing eGFR BUN/Creatinine Ratio (10-20) Glucose (70-99(Fasting)) mg/dl POC Glucose 135 H 153 H 83 (70-99) mg/dl POC Glucose (other) (70-99) mg/dl Estimat Average Glucose Hemoglobin A1c Lactate (0.4-2.0) mmol/L Calcium (8.6-10.3) mg/dl POC Ioniz Calcium Jose Rafael (1.12-1.32) mmol/l Phosphorus (2.5-4.9) mg/dl Magnesium (1.7-2.4) mg/dl Total Bilirubin (0.2-1.0) mg/dl AST (13-39) U/L ALT (7-52) U/L Alkaline Phosphatase (34-104) U/L Total Creatine Kinase (30-223) U/L Troponin I High Sens (0-20) pg/ml Total Protein (6.0-8.3) gm/dl Albumin (3.4-5.0) gm/dl Globulin (2.5-4.0) gm/dl Albumin/Globulin Ratio (0.9-2) Triglycerides (0-150) mg/dl Cholesterol (0-200) mg/dl LDL Cholesterol, Calc mg/dl VLDL Cholesterol, Calc (0-30) mg/dl HDL Cholesterol mg/dl Cholesterol/HDL Ratio (0-5) Procalcitonin (0-0.5) ng/ml TSH (0.300-4.500) uIu/ml Urine Color Urine Appearance (Clear) Urine pH (4.5-7.5) Ur Specific [place] (1.000-1.030) Urine Protein (Negative) Urine Glucose (UA) (Negative) Urine Ketones (Negative) Urine Blood (Negative) Urine Nitrite (Negative) Urine Bilirubin (Negative) Urine Urobilinogen (Negative) Ur Leukocyte Esterase (Negative) Urine WBC (Auto) (0-5) /hpf Urine RBC (Auto) (0-2) /hpf U Hyaline Cast (Auto) (0-2) /lpf U Epithel Cells (Auto) (0-2) /hpf Urine Bacteria (Auto) (None Seen) Urine Yeast (None Prsent) Nasal Screen MRSA (PCR) (Negative) Adenovirus (PCR) (NotDetected) B. pertussis DNA (PCR) (NotDetected) B.parapertussis DNA PCR (NotDetected) C. pneumoniae DNA (PCR) (NotDetected) Coronavirus OC43 (PCR) (NotDetected) Coronavirus HKU1 (PCR) (NotDetected) Coronavirus 229E (PCR) (NotDetected) SARS-CoV-2 (PCR) (NotDetected) Coronavirus NL63 (PCR) (NotDetected) Human Metapneumovir PCR (NotDetected) Influenza Type A (PCR) (NotDetected) Influenza Type B (PCR) (NotDetected) M. pneumoniae (PCR) (NotDetected) Parainfluenza 1 (PCR) (NotDetected) Parainfluenza 2 (PCR) (NotDetected) Parainfluenza 3 (PCR) (NotDetected) Parainfluenza 4 (PCR) (NotDetected) RSV (PCR) (NotDetected) Entero/Rhino (PCR) (NotDetected) 10/23/24 10/23/24 10/23/24 Range/Units 21:30 21:21 20:19 WBC (4.8-10.8) K/ul RBC (4.70-6.10) M/uL Hgb (14.0-18.0) g/dl POC Hgb (14.0-18.0) g/dl Hct (42.0-52.0) % POC Hct (42-52) % MCV (80.0-100.0) fL MCH (25.0-34.0) pg MCHC (32.0-36.0) g/dL RDW Std Deviation (36.4-46.3) fL RDW Coeff of Anaid (11.5-14.5) % Plt Count (130-400) K/uL MPV (9.4-12.4) fL Immature Gran % (Auto) % Neut % (Auto) % Lymph % (Auto) % Levy % (Auto) % Eos % (Auto) % Baso % (Auto) % Neut # (Auto) (1.40-6.50) K/uL Lymph # (Auto) (1.20-3.40) K/uL Levy # (Auto) (0.11-0.59) K/uL Eos # (Auto) (0.00-0.50) K/uL Baso # (Auto) (0.00-0.20) K/uL Immature Gran # (Auto) (0.01-0.20) K/uL PT (9.0-12.0) Seconds INR (0.9-1.1) POC Sodium (135-144) mmol/L Sodium (136-145) mmol/L POC Potassium (3.3-5.0) mmol/L Potassium (3.5-5.1) mmol/L POC Chloride (101-112) mmol/L Chloride (98-107) mmol/L Carbon Dioxide (21-32) mmol/L POC Total CO2 (24-31) mmol/L Anion Gap (3-11) POC Anion Gap (16-25) mmol/L POC BUN (7-18) mg/dl BUN (6-23) mg/dl Creatinine (0.6-1.4) mg/dl POC Creatinine (0.6-1.3) mg/dl Est Cr Clr Drug Dosing eGFR BUN/Creatinine Ratio (10-20) Glucose (70-99(Fasting)) mg/dl POC Glucose 72 78 (70-99) mg/dl POC Glucose (other) (70-99) mg/dl Estimat Average Glucose Hemoglobin A1c Lactate (0.4-2.0) mmol/L Calcium (8.6-10.3) mg/dl POC Ioniz Calcium Jose Rafael (1.12-1.32) mmol/l Phosphorus (2.5-4.9) mg/dl Magnesium (1.7-2.4) mg/dl Total Bilirubin (0.2-1.0) mg/dl AST (13-39) U/L ALT (7-52) U/L Alkaline Phosphatase (34-104) U/L Total Creatine Kinase (30-223) U/L Troponin I High Sens (0-20) pg/ml Total Protein (6.0-8.3) gm/dl Albumin (3.4-5.0) gm/dl Globulin (2.5-4.0) gm/dl Albumin/Globulin Ratio (0.9-2) Triglycerides (0-150) mg/dl Cholesterol (0-200) mg/dl LDL Cholesterol, Calc mg/dl VLDL Cholesterol, Calc (0-30) mg/dl HDL Cholesterol mg/dl Cholesterol/HDL Ratio (0-5) Procalcitonin (0-0.5) ng/ml TSH (0.300-4.500) uIu/ml Urine Color Urine Appearance (Clear) Urine pH (4.5-7.5) Ur Specific [place] (1.000-1.030) Urine Protein (Negative) Urine Glucose (UA) (Negative) Urine Ketones (Negative) Urine Blood (Negative) Urine Nitrite (Negative) Urine Bilirubin (Negative) Urine Urobilinogen (Negative) Ur Leukocyte Esterase (Negative) Urine WBC (Auto) (0-5) /hpf Urine RBC (Auto) (0-2) /hpf U Hyaline Cast (Auto) (0-2) /lpf U Epithel Cells (Auto) (0-2) /hpf Urine Bacteria (Auto) (None Seen) Urine Yeast (None Prsent) Nasal Screen MRSA (PCR) Negative (Negative) Adenovirus (PCR) (NotDetected) B. pertussis DNA (PCR) (NotDetected) B.parapertussis DNA PCR (NotDetected) C. pneumoniae DNA (PCR) (NotDetected) Coronavirus OC43 (PCR) (NotDetected) Coronavirus HKU1 (PCR) (NotDetected) Coronavirus 229E (PCR) (NotDetected) SARS-CoV-2 (PCR) (NotDetected) Coronavirus NL63 (PCR) (NotDetected) Human Metapneumovir PCR (NotDetected) Influenza Type A (PCR) (NotDetected) Influenza Type B (PCR) (NotDetected) M. pneumoniae (PCR) (NotDetected) Parainfluenza 1 (PCR) (NotDetected) Parainfluenza 2 (PCR) (NotDetected) Parainfluenza 3 (PCR) (NotDetected) Parainfluenza 4 (PCR) (NotDetected) RSV (PCR) (NotDetected) Entero/Rhino (PCR) (NotDetected) 10/23/24 10/23/24 10/23/24 Range/Units 19:12 15:56 12:45 WBC (4.8-10.8) K/ul RBC (4.70-6.10) M/uL Hgb (14.0-18.0) g/dl POC Hgb (14.0-18.0) g/dl Hct (42.0-52.0) % POC Hct (42-52) % MCV (80.0-100.0) fL MCH (25.0-34.0) pg MCHC (32.0-36.0) g/dL RDW Std Deviation (36.4-46.3) fL RDW Coeff of Anaid (11.5-14.5) % Plt Count (130-400) K/uL MPV (9.4-12.4) fL Immature Gran % (Auto) % Neut % (Auto) % Lymph % (Auto) % Levy % (Auto) % Eos % (Auto) % Baso % (Auto) % Neut # (Auto) (1.40-6.50) K/uL Lymph # (Auto) (1.20-3.40) K/uL Levy # (Auto) (0.11-0.59) K/uL Eos # (Auto) (0.00-0.50) K/uL Baso # (Auto) (0.00-0.20) K/uL Immature Gran # (Auto) (0.01-0.20) K/uL PT (9.0-12.0) Seconds INR (0.9-1.1) POC Sodium (135-144) mmol/L Sodium (136-145) mmol/L POC Potassium (3.3-5.0) mmol/L Potassium (3.5-5.1) mmol/L POC Chloride (101-112) mmol/L Chloride (98-107) mmol/L Carbon Dioxide (21-32) mmol/L POC Total CO2 (24-31) mmol/L Anion Gap (3-11) POC Anion Gap (16-25) mmol/L POC BUN (7-18) mg/dl BUN (6-23) mg/dl Creatinine (0.6-1.4) mg/dl POC Creatinine (0.6-1.3) mg/dl Est Cr Clr Drug Dosing eGFR BUN/Creatinine Ratio (10-20) Glucose (70-99(Fasting)) mg/dl POC Glucose 134 H (70-99) mg/dl POC Glucose (other) (70-99) mg/dl Estimat Average Glucose Hemoglobin A1c Lactate (0.4-2.0) mmol/L Calcium (8.6-10.3) mg/dl POC Ioniz Calcium Jose Rafael (1.12-1.32) mmol/l Phosphorus (2.5-4.9) mg/dl Magnesium (1.7-2.4) mg/dl Total Bilirubin (0.2-1.0) mg/dl AST (13-39) U/L ALT (7-52) U/L Alkaline Phosphatase (34-104) U/L Total Creatine Kinase (30-223) U/L Troponin I High Sens 97.0 H* D 85.2 H* D (0-20) pg/ml Total Protein (6.0-8.3) gm/dl Albumin (3.4-5.0) gm/dl Globulin (2.5-4.0) gm/dl Albumin/Globulin Ratio (0.9-2) Triglycerides (0-150) mg/dl Cholesterol (0-200) mg/dl LDL Cholesterol, Calc mg/dl VLDL Cholesterol, Calc (0-30) mg/dl HDL Cholesterol mg/dl Cholesterol/HDL Ratio (0-5) Procalcitonin (0-0.5) ng/ml TSH (0.300-4.500) uIu/ml Urine Color Urine Appearance (Clear) Urine pH (4.5-7.5) Ur Specific [place] (1.000-1.030) Urine Protein (Negative) Urine Glucose (UA) (Negative) Urine Ketones (Negative) Urine Blood (Negative) Urine Nitrite (Negative) Urine Bilirubin (Negative) Urine Urobilinogen (Negative) Ur Leukocyte Esterase (Negative) Urine WBC (Auto) (0-5) /hpf Urine RBC (Auto) (0-2) /hpf U Hyaline Cast (Auto) (0-2) /lpf U Epithel Cells (Auto) (0-2) /hpf Urine Bacteria (Auto) (None Seen) Urine Yeast (None Prsent) Nasal Screen MRSA (PCR) (Negative) Adenovirus (PCR) (NotDetected) B. pertussis DNA (PCR) (NotDetected) B.parapertussis DNA PCR (NotDetected) C. pneumoniae DNA (PCR) (NotDetected) Coronavirus OC43 (PCR) (NotDetected) Coronavirus HKU1 (PCR) (NotDetected) Coronavirus 229E (PCR) (NotDetected) SARS-CoV-2 (PCR) (NotDetected) Coronavirus NL63 (PCR) (NotDetected) Human Metapneumovir PCR (NotDetected) Influenza Type A (PCR) (NotDetected) Influenza Type B (PCR) (NotDetected) M. pneumoniae (PCR) (NotDetected) Parainfluenza 1 (PCR) (NotDetected) Parainfluenza 2 (PCR) (NotDetected) Parainfluenza 3 (PCR) (NotDetected) Parainfluenza 4 (PCR) (NotDetected) RSV (PCR) (NotDetected) Entero/Rhino (PCR) (NotDetected) 10/23/24 10/23/24 10/23/24 Range/Units 11:04 10:49 10:30 WBC (4.8-10.8) K/ul RBC (4.70-6.10) M/uL Hgb (14.0-18.0) g/dl POC Hgb 11.6 L (14.0-18.0) g/dl Hct (42.0-52.0) % POC Hct 34 L (42-52) % MCV (80.0-100.0) fL MCH (25.0-34.0) pg MCHC (32.0-36.0) g/dL RDW Std Deviation (36.4-46.3) fL RDW Coeff of Anaid (11.5-14.5) % Plt Count (130-400) K/uL MPV (9.4-12.4) fL Immature Gran % (Auto) % Neut % (Auto) % Lymph % (Auto) % Levy % (Auto) % Eos % (Auto) % Baso % (Auto) % Neut # (Auto) (1.40-6.50) K/uL Lymph # (Auto) (1.20-3.40) K/uL Levy # (Auto) (0.11-0.59) K/uL Eos # (Auto) (0.00-0.50) K/uL Baso # (Auto) (0.00-0.20) K/uL Immature Gran # (Auto) (0.01-0.20) K/uL PT (9.0-12.0) Seconds INR (0.9-1.1) POC Sodium 139 (135-144) mmol/L Sodium (136-145) mmol/L POC Potassium 4.8 (3.3-5.0) mmol/L Potassium (3.5-5.1) mmol/L POC Chloride 105 (101-112) mmol/L Chloride (98-107) mmol/L Carbon Dioxide (21-32) mmol/L POC Total CO2 26 (24-31) mmol/L Anion Gap (3-11) POC Anion Gap 14.0 L (16-25) mmol/L POC BUN 34 H (7-18) mg/dl BUN (6-23) mg/dl Creatinine (0.6-1.4) mg/dl POC Creatinine 1.9 H (0.6-1.3) mg/dl Est Cr Clr Drug Dosing eGFR BUN/Creatinine Ratio (10-20) Glucose (70-99(Fasting)) mg/dl POC Glucose 171 H (70-99) mg/dl POC Glucose (other) 153 H (70-99) mg/dl Estimat Average Glucose Hemoglobin A1c Lactate (0.4-2.0) mmol/L Calcium (8.6-10.3) mg/dl POC Ioniz Calcium Jose Rafael 1.10 L (1.12-1.32) mmol/l Phosphorus (2.5-4.9) mg/dl Magnesium (1.7-2.4) mg/dl Total Bilirubin (0.2-1.0) mg/dl AST (13-39) U/L ALT (7-52) U/L Alkaline Phosphatase (34-104) U/L Total Creatine Kinase (30-223) U/L Troponin I High Sens (0-20) pg/ml Total Protein (6.0-8.3) gm/dl Albumin (3.4-5.0) gm/dl Globulin (2.5-4.0) gm/dl Albumin/Globulin Ratio (0.9-2) Triglycerides (0-150) mg/dl Cholesterol (0-200) mg/dl LDL Cholesterol, Calc mg/dl VLDL Cholesterol, Calc (0-30) mg/dl HDL Cholesterol mg/dl Cholesterol/HDL Ratio (0-5) Procalcitonin (0-0.5) ng/ml TSH (0.300-4.500) uIu/ml Urine Color Dark Yellow Urine Appearance Turbid A (Clear) Urine pH 5.0 (4.5-7.5) Ur Specific [place] 1.020 (1.000-1.030) Urine Protein 2+ H (Negative) Urine Glucose (UA) Negative (Negative) Urine Ketones Negative (Negative) Urine Blood 3+ H (Negative) Urine Nitrite Positive A (Negative) Urine Bilirubin Negative (Negative) Urine Urobilinogen Negative (Negative) Ur Leukocyte Esterase 3+ H (Negative) Urine WBC (Auto) >50 H (0-5) /hpf Urine RBC (Auto) >20 H (0-2) /hpf U Hyaline Cast (Auto) 11-20 H (0-2) /lpf U Epithel Cells (Auto) 0-2 (0-2) /hpf Urine Bacteria (Auto) 3+ H (None Seen) Urine Yeast Present A (None Prsent) Nasal Screen MRSA (PCR) (Negative) Adenovirus (PCR) (NotDetected) B. pertussis DNA (PCR) (NotDetected) B.parapertussis DNA PCR (NotDetected) C. pneumoniae DNA (PCR) (NotDetected) Coronavirus OC43 (PCR) (NotDetected) Coronavirus HKU1 (PCR) (NotDetected) Coronavirus 229E (PCR) (NotDetected) SARS-CoV-2 (PCR) (NotDetected) Coronavirus NL63 (PCR) (NotDetected) Human Metapneumovir PCR (NotDetected) Influenza Type A (PCR) (NotDetected) Influenza Type B (PCR) (NotDetected) M. pneumoniae (PCR) (NotDetected) Parainfluenza 1 (PCR) (NotDetected) Parainfluenza 2 (PCR) (NotDetected) Parainfluenza 3 (PCR) (NotDetected) Parainfluenza 4 (PCR) (NotDetected) RSV (PCR) (NotDetected) Entero/Rhino (PCR) (NotDetected) 10/23/24 10/23/24 10/23/24 Range/Units 10:25 10:22 10:15 WBC 14.95 H (4.8-10.8) K/ul RBC 3.58 L (4.70-6.10) M/uL Hgb 11.8 L (14.0-18.0) g/dl POC Hgb (14.0-18.0) g/dl Hct 35.4 L (42.0-52.0) % POC Hct (42-52) % MCV 98.9 (80.0-100.0) fL MCH 33.0 (25.0-34.0) pg MCHC 33.3 (32.0-36.0) g/dL RDW Std Deviation 50.9 H (36.4-46.3) fL RDW Coeff of Anaid 14.1 (11.5-14.5) % Plt Count 193 (130-400) K/uL MPV 9.1 L (9.4-12.4) fL Immature Gran % (Auto) 0.5 % Neut % (Auto) 88.1 % Lymph % (Auto) 3.7 % Levy % (Auto) 7.0 % Eos % (Auto) 0.4 % Baso % (Auto) 0.3 % Neut # (Auto) 13.19 H (1.40-6.50) K/uL Lymph # (Auto) 0.55 L (1.20-3.40) K/uL Levy # (Auto) 1.04 H (0.11-0.59) K/uL Eos # (Auto) 0.06 (0.00-0.50) K/uL Baso # (Auto) 0.04 (0.00-0.20) K/uL Immature Gran # (Auto) 0.07 (0.01-0.20) K/uL PT 11.5 (9.0-12.0) Seconds INR 1.1 (0.9-1.1) POC Sodium (135-144) mmol/L Sodium 139 (136-145) mmol/L POC Potassium (3.3-5.0) mmol/L Potassium 4.7 (3.5-5.1) mmol/L POC Chloride (101-112) mmol/L Chloride 105 (98-107) mmol/L Carbon Dioxide 28 (21-32) mmol/L POC Total CO2 (24-31) mmol/L Anion Gap 6 (3-11) POC Anion Gap (16-25) mmol/L POC BUN (7-18) mg/dl BUN 32 H (6-23) mg/dl Creatinine 1.73 H (0.6-1.4) mg/dl POC Creatinine (0.6-1.3) mg/dl Est Cr Clr Drug Dosing Not Reportable eGFR 37.27 BUN/Creatinine Ratio 18.5 (10-20) Glucose 155 H (70-99(Fasting)) mg/dl POC Glucose (70-99) mg/dl POC Glucose (other) (70-99) mg/dl Estimat Average Glucose Hemoglobin A1c Lactate 1.2 (0.4-2.0) mmol/L Calcium 9.2 (8.6-10.3) mg/dl POC Ioniz Calcium [place] (1.12-1.32) mmol/l Phosphorus (2.5-4.9) mg/dl Magnesium 2.1 (1.7-2.4) mg/dl Total Bilirubin 1.1 H (0.2-1.0) mg/dl AST 16 (13-39) U/L ALT 9 (7-52) U/L Alkaline Phosphatase 82 (34-104) U/L Total Creatine Kinase 26 L (30-223) U/L Troponin I High Sens 103.5 H* (0-20) pg/ml Total Protein 6.5 (6.0-8.3) gm/dl Albumin 3.5 (3.4-5.0) gm/dl Globulin 3.0 (2.5-4.0) gm/dl Albumin/Globulin Ratio 1.2 (0.9-2) Triglycerides (0-150) mg/dl Cholesterol (0-200) mg/dl LDL Cholesterol, Calc mg/dl VLDL Cholesterol, Calc (0-30) mg/dl HDL Cholesterol mg/dl Cholesterol/HDL Ratio (0-5) Procalcitonin 0.21 (0-0.5) ng/ml TSH 1.220 (0.300-4.500) uIu/ml Urine Color Urine Appearance (Clear) Urine pH (4.5-7.5) Ur Specific [place] (1.000-1.030) Urine Protein (Negative) Urine Glucose (UA) (Negative) Urine Ketones (Negative) Urine Blood (Negative) Urine Nitrite (Negative) Urine Bilirubin (Negative) Urine Urobilinogen (Negative) Ur Leukocyte Esterase (Negative) Urine WBC (Auto) (0-5) /hpf Urine RBC (Auto) (0-2) /hpf U Hyaline Cast (Auto) (0-2) /lpf U Epithel Cells (Auto) (0-2) /hpf Urine Bacteria (Auto) (None Seen) Urine Yeast (None Prsent) Nasal Screen MRSA (PCR) (Negative) Adenovirus (PCR) Not Detected (NotDetected) B. pertussis DNA (PCR) Not Detected (NotDetected) B.parapertussis DNA PCR Not Detected (NotDetected) C. pneumoniae DNA (PCR) Not Detected (NotDetected) Coronavirus OC43 (PCR) Not Detected (NotDetected) Coronavirus HKU1 (PCR) Not Detected (NotDetected) Coronavirus 229E (PCR) Not Detected (NotDetected) SARS-CoV-2 (PCR) Not Detected (NotDetected) Coronavirus NL63 (PCR) Not Detected (NotDetected) Human Metapneumovir PCR Not Detected (NotDetected) Influenza Type A (PCR) Not Detected (NotDetected) Influenza Type B (PCR) Not Detected (NotDetected) M. pneumoniae (PCR) Not Detected (NotDetected) Parainfluenza 1 (PCR) Not Detected (NotDetected) Parainfluenza 2 (PCR) Not Detected (NotDetected) Parainfluenza 3 (PCR) Not Detected (NotDetected) Parainfluenza 4 (PCR) Not Detected (NotDetected) RSV (PCR) Not Detected (NotDetected) Entero/Rhino (PCR) Not Detected (NotDetected) Medications Administered Current Inpatient Medications Acetaminophen (Acetaminophen 325 Mg Tab) 650 mg PO Q4H PRN PRN Reason: Pain or Fever Stop: 11/22/24 17:20 Aspirin (Aspirin 81 Mg Ectab) 81 mg PO QAM [facility] Stop: 11/23/24 08:59 Last Admin: 10/24/24 10:34 Dose: Not Given Buspirone HCl (Buspirone 5 Mg Tab) 10 mg PO TID [facility] Stop: 11/22/24 20:59 Last Admin: 10/24/24 10:18 Dose: 10 mg Dextrose (Dextrose 50% 50 Ml Syringe) 25 - 50 ml IV UD PRN; Protocol PRN Reason: Hypoglycemia Protocol Stop: 11/22/24 17:20 Last Admin: 10/23/24 22:04 Dose: 25 ml Diatrizoate Meglumine (Diatrizoate Meglumine 30% 100ml Vial) 100 ml INSTIL UD PRN PRN Reason: intraoperative Stop: 10/27/24 15:51 Last Admin: 10/23/24 15:20 Dose: 8 ml Finasteride (Finasteride 5 Mg Tab) 5 mg PO QAM [facility] Stop: 11/23/24 08:59 Last Admin: 10/24/24 10:18 Dose: 5 mg Glucagon (Glucagon For Inj 1 Mg Vial) 1 mg SQ UD PRN; Protocol PRN Reason: Hypoglycemia Protocol Stop: 11/22/24 17:20 Glucose (Glucose 40% Gel 15 Gm Tube) 15 - 30 gm PO UD PRN; Protocol PRN Reason: Hypoglycemia Protocol Stop: 11/22/24 17:20 Glucose (Glucose 10 Tab/Tube) 4 - 8 tab PO UD PRN; Protocol PRN Reason: Hypoglycemia Protocol Stop: 11/22/24 17:20 Heparin Sodium (Porcine) (Heparin Sod 5,000 Unit/0.5 Ml Vial) 5,000 units SQ Q8 [facility] Stop: 11/22/24 21:59 Last Admin: 10/24/24 05:49 Dose: 5,000 units Sodium Chloride (Nss) 1,000 mls @ 60 mls/hr IV .[id number] [facility] Stop: 10/24/24 14:59 Last Admin: 10/23/24 18:04 Dose: 60 mls/hr Vancomycin HCl 750 mg/ Sodium (Chloride) 265 mls @ 200 mls/hr IV Q24H [facility] Stop: 11/03/24 08:59 Last Admin: 10/24/24 11:06 Dose: 200 mls/hr Piperacillin Sod/Tazobactam Sod (Zosyn) 4.5 gm in 100 mls @ 25 mls/hr IV Q8H [facility]; Protocol Stop: 11/02/24 19:59 Last Infusion: 10/24/24 09:14 Dose: Infused Insulin Aspart (Insulin Aspart Per Unit Charge) 0 units SC ACHS [facility] Stop: 11/22/24 17:20 Last Admin: 10/24/24 11:38 Dose: Not Given Insulin Glargine (Lantus Per Unit Charge) 0 - 10 units SQ HS [facility] Stop: 11/22/24 20:59 Last Admin: 10/23/24 20:58 Dose: Not Given Lactobacillus Acidophilus (Advanced Probiotic 625 Mg Capsule) 1,250 mg PO DAILY [facility] Stop: 11/23/24 08:59 Last Admin: 10/24/24 10:23 Dose: Not Given Melatonin (Melatonin 3 Mg Tab) 6 mg PO HS PRN PRN Reason: Sleep Stop: 11/22/24 20:59 Memantine (Memantine Hcl 10 Mg Tab) 10 mg PO BID [facility] Stop: 11/22/24 20:59 Last Admin: 10/24/24 10:17 Dose: 10 mg Metoprolol Succinate (Metoprolol Succ 25mg Ext Rel Tab) 12.5 mg PO QAM [facility] Stop: 11/23/24 08:59 Last Admin: 10/24/24 10:19 Dose: 12.5 mg Miscellaneous (Carbohydrates For Hypoglycemia ) 15 - 30 gm PO UD PRN PRN Reason: Hypoglycemia Protocol Stop: 11/22/24 17:20 Miscellaneous Information (Vancomycin Consult Active) 1 each N/A UD PRN PRN Reason: Consult Stop: 11/22/24 14:47 Miscellaneous Information (Pharmacy Glycemic Mgmt Consult) 1 each N/A UD PRN PRN Reason: Consult Stop: 11/22/24 17:20 Ondansetron HCl (Ondansetron Inj 2 Mg/Ml 2 Ml Vial) 4 mg IV Q6H PRN PRN Reason: Nausea Stop: 11/22/24 17:20 Pantoprazole Sodium (Pantoprazole 40 Mg Tab) 40 mg PO BID [facility] Stop: 11/22/24 20:59 Last Admin: 10/24/24 10:20 Dose: 40 mg Polyethylene Glycol (Polyethylene (Miralax) 17 Gm Pack) 17 gm PO QAM [facility] Stop: 11/23/24 08:59 Quetiapine Fumarate (Quetiapine Fumarate 25 Mg Tablet) 12.5 mg PO HS [facility] Stop: 11/22/24 20:59 Last Admin: 10/23/24 20:58 Dose: Not Given Risperidone (Risperidone 0.25 Mg Tab) 0.25 mg PO HS [facility] Stop: 11/22/24 20:59 Last Admin: 10/23/24 20:59 Dose: Not Given Vitamin B Complex (Vitamin B Complex Tab) 1 tab PO QAM [facility] Stop: 11/23/24 08:59 Last Admin: 10/24/24 10:20 Dose: 1 tab Vitamin D (Cholecalciferol 25 Mcg (1000 Units) Tab) 25 mcg PO QAM [facility] Stop: 11/23/24 08:59 Last Admin: 10/24/24 10:19 Dose: 25 mcg
[2024-10-24 08:13] LABS: Estimated Average Glucose 131 mg/dl; Hemoglobin A1C 6.2 % (4.5-5.6)
--- NOTE | 2024-10-24 08:28 | Fluoroscopy Report ---
FL retrograde includes kub CLINICAL HISTORY: STONEleft-sided cystourethrogram COMPARISON STUDY: None FLUOROSCOPY TIME: 11.8 seconds FLUOROSCOPY IMAGES: 1 EXPOSURE DOSE: 2.91 mGy FINDINGS: Proximal portion of a left ureteral stent appears to be in satisfactory positioning. The di stal portion was not imaged. Left-sided hydronephrosis. IMPRESSION: Fluoroscopic assistance as above. ACT 112: Negative or not required by law. Electronically signed by: Elver Herron M.D. 10/24/2024 8:27 AM
--- NOTE | 2024-10-24 09:21 | Consultation ---
Date of Consultation October 24, 2024 Assessment & Plan (1) Carotid stenosis, right: Pt with R ICA stenosis of approx 70%. Pt asymptomatic from this, and does have severe chronic dementia. No vascular surgical intervention indicated. Please call if needed. Plan History of Present Illness Reason for Consultation: KAY Attending Physician: Ziyad Bills MD History of Present Illness 89 yo m with hx of DMII, NSTEMI, PAF, dyslipidemia, neuropathy, aortic stenosis, HTN, CAD, severe dementia, admitted with urosepsis, and found to have R ICA stenosis. Pt severely demented, unable to provide any pertinent hx. Denies any hx of CVA in past. CTA neck demonstrates R ICA stenosis of about 70% Allergies Allergy/AdvReac Type Severity Reaction Status Date / Time Sulfa (Sulfonamide Allergy Unknown ON HARMONY Verified 06/25/24 01:56 Antibiotics) MED LIST Home Medications Medication Instructions Recorded Confirmed Type blood glucose control, high #1 ea 11/12/21 07/14/24 Rx (OneTouch Verio High Control solution) lancets 33 gauge (OneTouch Delica #120 ea 12/11/21 07/14/24 Rx Lancets) OneTouch Verio test strips (blood #400 ea 12/13/21 07/14/24 Rx sugar diagnostic) acetaminophen 325 mg tablet 650 mg (2 x 325 mg) PO Q8H PRN 08/02/24 10/23/24 Rx (Tylenol) Pain #30 tabs aspirin 81 mg tablet,delayed 81 mg PO QAM #30 tabs 08/02/24 10/23/24 Rx release cholecalciferol (vitamin D3) 25 1,000 units PO QAM #30 caps 08/02/24 10/23/24 Rx mcg (1,000 unit) capsule dutasteride 0.5 mg capsule 0.5 mg PO QAM #30 caps 08/02/24 10/23/24 Rx insulin aspart U-100 100 unit/mL 1 sliding scale dose subcut ACHS 08/02/24 10/23/24 Rx (3 mL) subcutaneous pen (Novolog #15 mL FlexPen U-100 Insulin aspart) memantine 10 mg tablet 10 mg PO BID 90 days #180 tabs 08/02/24 10/23/24 Rx methenamine hippurate 1 gram tablet 1 g PO BID #60 tabs 08/02/24 10/23/24 Rx metoprolol succinate 25 mg 12.5 mg (1/2 x 25 mg) PO QAM #90 08/02/24 10/23/24 Rx tablet,extended release 24 hr tabs pen needle, diabetic 32 gauge x #400 ea 08/02/24 Rx 32" vitamin B complex 1 cap PO QAM #30 caps 08/02/24 10/23/24 Rx Milk of Magnesia 30 ml PO DAILY PRN Constipation 10/23/24 10/23/24 History acetaminophen 325 mg tablet 650 mg PO DAILY PRN temp >100 10/23/24 10/23/24 History (Tylenol) bisacodyl 10 mg rectal suppository 10 mg [place] DAILY PRN Constipation 10/23/24 10/23/24 History (Dulcolax (bisacodyl)) buspirone 10 mg tablet 10 mg PO TID 10/23/24 10/23/24 History docusate sodium 100 mg capsule 100 mg PO DAILY PRN Constipation 10/23/24 10/23/24 History (Colace) guaifenesin 600 mg tablet, 600 mg PO UD 10/23/24 10/23/24 History extended release 12 hr (Mucinex) insulin degludec 100 unit/mL (3 16 unit subcut QAM 10/23/24 10/23/24 History mL) subcutaneous pen (Tresiba FlexTouch U-100 insulin) lisinopril 20 mg tablet 10 mg PO DAILY 10/23/24 10/23/24 History mirabegron 50 mg tablet,extended 50 mg PO UD 10/23/24 10/23/24 History release 24 hr polyethylene glycol 3350 17 17 g PO QAM 10/23/24 10/23/24 History gram/dose oral powder (Miralax) quetiapine 25 mg tablet 12.5 mg PO HS 10/23/24 10/23/24 History risperidone 0.25 mg tablet 0.25 mg PO HS 10/23/24 10/23/24 History Patient History Medical History Fall COVID-19 Dementia Closed rib fracture Chronic anticoagulation Weakness Rhabdomyolysis Right rib fracture 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 Enlarged prostate with lower urinary tract symptoms (LUTS) Other and unspecified hyperlipidemia (06/07/12) Hematospermia Myocardial infarction (06/07/12) Nontoxic multinodular goiter PND (post-nasal drip) Sepsis (06/07/12) Pancytopenia (~2000) Left shoulder strain CHI (closed head injury) Surgical History History of tonsillectomy History of cataract surgery History of arthroscopy of knee History of cystoscopy History of colonoscopy Status post Mohs surgery S/P drug eluting coronary stent placement Family History Brother Coronary heart disease Father Angina pectoris Carcinoma of pancreas Myocardial infarction Mother Congestive heart failure Breast cancer Unknown Diabetes Heart disease Hypertension Daughter Breast cancer Denies family history of Ovarian cancer Prostate cancer Colorectal cancer Social History Smoking Status: Never smoker Tobacco Type: Cigarettes Second Hand Exposure: No; Do You Dip or Chew Tobacco: No; Hx Alcohol Use: No Hx Substance Use: No Preferred Language: Syriac Communication Ability: Impaired Communication Ability Comment: Alert and oriented to person, periods of confusion. Visual Impairment: Limited Hearing Ability: Normal Client Analyst Required: No Beliefs That Will Affect Care: None marital status: / Current Living Situation: Correction Current Living Situation Comment: [place] current occupational status: retired How many Children do You have: 3 Feels Safe at Home: Yes Childhood Exposure to Second-Hand Smoke: No caffeine: Yes Dental Care, Regularly: Yes Physical Activity Frequency: 1-2 Times per Week Seatbelt Use: always Sunscreen Use: Yes Assistive Devices: Walker and Wheelchair Review of Systems Review of Systems: Unobtainable due to cognitive status Physical Exam Constitutional: WD/WN, vitals as above + frail appearing (contracted) and comfortable; not in distress Respiratory: normal respiratory effort, lungs clear to auscultation Auscultation: + diminished lung sounds Cardiovascular: Rate/Rhythm: regular rate and regular rhythm Vessels: femoral pulses present, posterior tibial pulses present (+2 RLE, nonpalpable LLE) and dorsalis pedis pulses present (+2 BLE) Extremities: normal capillary refill; no edema Gastrointestinal (Abdomen): Inspection/Auscultation: abdomen normal to inspection and normal bowel sounds Percussion/Palpation: abdomen soft; abdomen nontender Musculoskeletal: no cyanosis or clubbing, extremities motor strength 5/5 (contracted) Skin: no rashes, warm and dry Neurologic: moves all extremities, + confused and + obtunded Psychiatric: Orientation: oriented to person; + not oriented to place and + not oriented to time Eye Contact: + poor eye contact (none) Results & Data Vital Signs (Past 12 Hours) Vital Signs Temp Pulse Pulse Resp BP Pulse Ox O2 Del Method 10/24/24 07:51 37.7 C H 63 17 106/59 L 93 Room Air 10/24/24 03:47 36.9 C 78 22 109/54 L 93 Room Air 10/24/24 00:03 81 10/23/24 23:47 Room Air 10/23/24 23:32 37.1 C 80 18 123/55 L 94 Room Air
--- NOTE | 2024-10-24 09:31 | Gastrointestinal Consultation ---
Date of Consultation October 24, 2024 Assessment & Plan (1) Abnormal abdominal CT scan: Plan Patient is an 89 year old male who presented to ED on 10/23 secondary to worsening confusion from [facility]. GI asked to see due to CT scan A/P on 10/23 showing Distended upper to mid debris filled esophagus with wall thickening and adjacent inflammatory stranding. Patient is confused and it is difficult to obtain information from him. Per nursing, no acute GI issues currently. - continue with protonix 40mg bid. - Will discuss case further with Dr. Silva. Further recommendations to follow. Supervising Physician Co-Signing Physician Notes I examined the patient and reviewed patient's chart , laboratory data and imaging studies. I agree with with assessment and plan of care as suggested by advanced practice provider. The patient is unable to provide history. CT scan showed debris in the esophagus, thickening of the esophageal wall. Possible esophagitis. 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 He has been admitted with sepsis, uretal calculus with hydroureteronephrosis s/p cystoscopy. GI asked to see due to CT scan A/P on 10/23 showing Distended upper to mid debris filled esophagus with wall thickening and adjacent inflammatory stranding. Patient is confused, but denies any pain. I spoke with nursing, he is not having issues with vomiting or complaints of pain. Per nursing, no abnormal bowel movements reported. Allergies Allergy/AdvReac Type Severity Reaction Status Date / Time Sulfa (Sulfonamide Allergy Unknown ON HARMONY Verified 06/25/24 01:56 Antibiotics) MED LIST Home Medications Medication Instructions Recorded Confirmed Type blood glucose control, high #1 ea 11/12/21 07/14/24 Rx (OneTouch Verio High Control solution) lancets 33 gauge (OneTouch Delica #120 ea 12/11/21 07/14/24 Rx Lancets) OneTouch Verio test strips (blood #400 ea 12/13/21 07/14/24 Rx sugar diagnostic) acetaminophen 325 mg tablet 650 mg (2 x 325 mg) PO Q8H PRN 08/02/24 10/23/24 Rx (Tylenol) Pain #30 tabs aspirin 81 mg tablet,delayed 81 mg PO QAM #30 tabs 08/02/24 10/23/24 Rx release cholecalciferol (vitamin D3) 25 1,000 units PO QAM #30 caps 08/02/24 10/23/24 Rx mcg (1,000 unit) capsule dutasteride 0.5 mg capsule 0.5 mg PO QAM #30 caps 08/02/24 10/23/24 Rx insulin aspart U-100 100 unit/mL 1 sliding scale dose subcut ACHS 08/02/24 10/23/24 Rx (3 mL) subcutaneous pen (Novolog #15 mL FlexPen U-100 Insulin aspart) memantine 10 mg tablet 10 mg PO BID 90 days #180 tabs 08/02/24 10/23/24 Rx methenamine hippurate 1 gram tablet 1 g PO BID #60 tabs 08/02/24 10/23/24 Rx metoprolol succinate 25 mg 12.5 mg (1/2 x 25 mg) PO QAM #90 08/02/24 10/23/24 Rx tablet,extended release 24 hr tabs pen needle, diabetic 32 gauge x #400 ea 08/02/24 Rx 5/32" vitamin B complex 1 cap PO QAM #30 caps 08/02/24 10/23/24 Rx Milk of Magnesia 30 ml PO DAILY PRN Constipation 10/23/24 10/23/24 History acetaminophen 325 mg tablet 650 mg PO DAILY PRN temp >100 10/23/24 10/23/24 History (Tylenol) bisacodyl 10 mg rectal suppository 10 mg [place] DAILY PRN Constipation 10/23/24 10/23/24 History (Dulcolax (bisacodyl)) buspirone 10 mg tablet 10 mg PO TID 10/23/24 10/23/24 History docusate sodium 100 mg capsule 100 mg PO DAILY PRN Constipation 10/23/24 10/23/24 History (Colace) guaifenesin 600 mg tablet, 600 mg PO UD 10/23/24 10/23/24 History extended release 12 hr (Mucinex) insulin degludec 100 unit/mL (3 16 unit subcut QAM 10/23/24 10/23/24 History mL) subcutaneous pen (Tresiba FlexTouch U-100 insulin) lisinopril 20 mg tablet 10 mg PO DAILY 10/23/24 10/23/24 History mirabegron 50 mg tablet,extended 50 mg PO UD 10/23/24 10/23/24 History release 24 hr polyethylene glycol 3350 17 17 g PO QAM 10/23/24 10/23/24 History gram/dose oral powder (Miralax) quetiapine 25 mg tablet 12.5 mg PO HS 10/23/24 10/23/24 History risperidone 0.25 mg tablet 0.25 mg PO HS 10/23/24 10/23/24 History Patient History Medical History Fall COVID-19 Dementia Closed rib fracture Chronic anticoagulation Weakness Rhabdomyolysis Right rib fracture 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 Enlarged prostate with lower urinary tract symptoms (LUTS) Other and unspecified hyperlipidemia (06/07/12) Hematospermia Myocardial infarction (06/07/12) Nontoxic multinodular goiter PND (post-nasal drip) Sepsis (06/07/12) Pancytopenia (~2000) Left shoulder strain CHI (closed head injury) Surgical History History of tonsillectomy History of cataract surgery History of arthroscopy of knee History of cystoscopy History of colonoscopy Status post Mohs surgery S/P drug eluting coronary stent placement Family History Brother Coronary heart disease Father Angina pectoris Carcinoma of pancreas Myocardial infarction Mother Congestive heart failure Breast cancer Unknown Diabetes Heart disease Hypertension Daughter Breast cancer Denies family history of Ovarian cancer Prostate cancer Colorectal cancer Social History Smoking Status: Never smoker Tobacco Type: Cigarettes Second Hand Exposure: No; Do You Dip or Chew Tobacco: No; Hx Alcohol Use: No Hx Substance Use: No Preferred Language: Irish Communication Ability: Impaired Communication Ability Comment: Alert and oriented to person, periods of confusion. Visual Impairment: Limited Hearing Ability: Normal Life Support Technician Required: No Beliefs That Will Affect Care: None marital status: / Current Living Situation: Group Home Current Living Situation Comment: [place] current occupational status: retired How many Children do You have: 3 Feels Safe at Home: Yes Childhood Exposure to Second-Hand Smoke: No caffeine: Yes Dental Care, Regularly: Yes Physical Activity Frequency: 1-2 Times per Week Seatbelt Use: always Sunscreen Use: Yes Assistive Devices: Walker and Wheelchair Review of Systems Review of Systems: Unobtainable due to cognitive status Physical Exam Constitutional: WD/WN, vitals as above Respiratory: normal respiratory effort, lungs clear to auscultation Cardiovascular: Rate/Rhythm: regular rate and regular rhythm Gastrointestinal (Abdomen): soft, normal bowel sounds. He does not react as if in pain to palpation. Psychiatric: confused Results & Data Vital Signs (Past 12 Hours) Vital Signs Temp Pulse Pulse Resp BP Pulse Ox O2 Del Method 10/24/24 07:51 99.9 F H 63 17 106/59 L 93 Room Air 10/24/24 03:47 98.4 F 78 22 109/54 L 93 Room Air 10/24/24 00:03 81 10/23/24 23:47 Room Air 10/23/24 23:32 98.8 F 80 18 123/55 L 94 Room Air Coding Level of Care Code 55360 INT INP/OBS CARE 2/55MIN Diagnoses Abnormal abdominal CT scan R93.5
[2024-10-24 10:06] LABS: Appearance Urine Cloudy (Clear); Bilirubin Urine Negative (Negative); Blood Urine 2+ (Negative); Color Urine Yellow; Glucose Urine UA Negative (Negative); Ketones Urine Negative (Negative); Leukocyte Esterase Urine 2+ (Negative); Nitrite Urine Negative (Negative); Protein Urine 2+ (Negative); Urobilinogen Urine Negative (Negative); pH Urine 5.5 (4.5-7.5)
[2024-10-24 10:11] LABS: WBC Urine >50 /hpf (0-5)
[2024-10-24 10:14] LABS: Renal Epithelial Cells Urine Present /lpf (None Presnt)
[2024-10-24 10:15] LABS: Bacteria Urine 3+ (None Seen)
[2024-10-24 10:16] LABS: Uric Acid Crystals Urine Present (None Prsent)
[2024-10-24] MEDS: FINASTERIDE 5 MG TAB PO SCH (10:18)
[2024-10-24] MEDS: METOPROLOL SUCC 25MG EXT REL TAB PO SCH (10:19)
[2024-10-24] MEDS: CHOLECALCIFEROL 25 MCG (1000 UNITS) TAB PO SCH (10:19)
[2024-10-24] MEDS: VITAMIN B COMPLEX TAB PO SCH (10:20)
[2024-10-24] MEDS: ADVANCED PROBIOTIC 625 MG CAPSULE PO SCH (10:23)
[2024-10-24] MEDS: ASPIRIN 81 MG ECTAB PO SCH (10:34)
[2024-10-24] MEDS: VANCOMYCIN 750 MG in SODIUM CHLORIDE 0.9% 250 ML IV SCH (11:06)
--- NOTE | 2024-10-24 11:39 | Urology Progress Note ---
Date of Service October 24, 2024 Assessment & Plan (1) Left ureteral calculus: Plan - POD #1 s/p cystoscopy and left ureteral stent placement - Afebrile (Temp 37.7C this morning). Mildly hypotensive 106/59 otherwise stable vitals. - Labs today show leukocytosis downtrending 13.4, creatinine improved from 1.73- 1.56 - Urine culture 12/8 negative, repeat culture pending - Blood cultures prelim no growth x 24 hours - No further urological intervention warranted - Continue antibiotics and tailor per culture sensitivities - We will arrange outpatient follow-up to discuss definitive stone treatment - Urology will sign off, please reach out with any further questions/concerns Admission and Anticipated Discharge Date Admission Date: October 23, 2024 Subjective Patient seen at bedside today. Awake and resting in bed on arrival. No acute distress. Family at bedside. Patient/family report an overall improvement today. Arceo draining clear yellow urine. Review of Systems Constitutional: as per Subjective / HPI Genitourinary: + as per Subjective / HPI Physical Exam Physical Exam: General: No acute distress Pulmonary: Nonlabored respirations Neuro: Awake and alert. Pleasantly confused : Arceo intact Results & Data Vital Signs (Past 12 Hours) Vital Signs Temp Pulse Pulse Resp BP Pulse Ox O2 Del Method 10/24/24 07:51 37.7 C H 63 17 106/59 L 93 Room Air 10/24/24 03:47 36.9 C 78 22 109/54 L 93 Room Air 10/24/24 00:03 81 10/23/24 23:47 Room Air PG Care Time/CCT Total # of Minutes Spent Total Time Spent with Patient: Total time spent is greater than 50% in coordination of care (as documented) at patient's floor/unit and/or counseling patient: Coding Level of Care Code 78173 SUB INP/OBS CARE 2/35MIN Diagnoses Left ureteral calculus N20.1
--- NOTE | 2024-10-24 13:16 | Pharmacy Report ---
Pharmacy PK ABX Note - Date of Service October 24, 2024 - Assessment and Plan Assessment * 10/24 * Renal function slightly improved. * Increased frequency to q18h 10/23 89 year old M receiving Vancomycin and Zosyn for treatment of urosepsis. * Day #1 of antimicrobial therapy. * Afebrile. Leukocytosis 15k. SCr 1.73 mg/dL. Procal at 0.21 and lactate normal. * Blood and urine cultures pending. Patient to OR for cystoscopy and ureteral stent. Plan vancomycin * Loading dose: 1750 mg IV x 1 * Maintenance dose: 750 mg IV every 18 hours * Regimen is predicted to achieve target AUC/CHAYITO of 400-600 mg/L.hr * random level is ordered at 10/27. Pharmacy will continue to follow and will adjust dose/frequency as necessary. Thank you. Pharmacy has transitioned to AUC monitoring for vancomycin. AUC/CHAYITO is the preferred PK/PD target and is associated with decreased risk of nephrotoxicity compared to traditional trough targets.
[2024-10-24] MEDS: POLYETHYLENE (MIRALAX) 17 GM PACK PO SCH (13:57)
--- NOTE | 2024-10-24 14:24 | Pharmacy Report ---
Pharmacy Glycemic Short Note 2 - Date of Service October 24, 2024 - Glycemic Short BSG Results (Last 24 hours): 10/23/24 10/23/24 10/23/24 15:56 20:19 21:21 Glucose POC Glucose 134 H 78 72 10/23/24 10/23/24 10/23/24 21:49 22:21 23:57 Glucose POC Glucose 83 153 H 135 H 10/24/24 10/24/24 10/24/24 05:32 06:29 09:20 Glucose 94 POC Glucose 105 H 102 H 10/24/24 11:26 Glucose POC Glucose 147 H OUTPATIENT ANTIDIABETIC REGIMEN: * Tresiba 16 units QAM * NovoLog ACHS CF 35 CR 8 * HbA1c 6.2% 10/24/24 ASSESSMENT: * Terry is a 89 YOM admitted with SPARKLE/urosepsis and a history of T2DM. Pharmacy has been consulted to assist with glycemic management while inpatient. * Fasting BSG this AM slightly low, but acceptable. No basal insulin given yesterday, Tresiba likely still hanging on with SPARKLE and less need with reduced oral intake. Will add a basal scale at bedtime again based on BSGs * Will tighten NovoLog slightly, may need tightened further when oral intake improves. He is receiving vancomycin and Zosyn for treatment of urosepsis. PLAN FOR INPATIENT GLYCEMIC CONTROL: * Hold outpatient oral diabetes medications * Basal insulin * Lantus 0-10 units SQ HS based on BSG (see eMAR for additional details) * Bolus insulin * NovoLog per scale ACHS or Q6hrs while NPO * Goal Range: Low 120 mg/dL - High 160 mg/dL * Correction Factor: 35 mg/dL/unit * Nutritional / Prandial insulin per carb ratio of 1 unit per 12 grams CHO consumed
[2024-10-24] MEDS: LANTUS PER UNIT CHARGE SC SCH (21:06)
[2024-10-25] MEDS ORDERED: VANCOMYCIN 750 MG in SODIUM CHLORIDE 0.9% 250 ML IV SCH (05:00)
[2024-10-25] MEDS: VANCOMYCIN 750 MG in SODIUM CHLORIDE 0.9% 250 ML IV SCH (05:10)
[2024-10-25 08:19] LABS: Calcium 8.2 mg/dl (8.6-10.3); Creatinine Clr Calc Pharmacy 38.5 ml/min; Magnesium 1.9 mg/dl (1.7-2.4); Phosphorus 2.7 mg/dl (2.5-4.9); Potassium 3.9 mmol/L (3.5-5.1)
--- NOTE | 2024-10-25 08:21 | Hospitalist Progress Note ---
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 Severe Sepsis SPARKLE Complicated UTI Metabolic encephalopathy mild to moderate left-sided hydroureteronephrosis secondary to an obstructing 7 mm distal ureteral calculus Admitted to PCU Urology consulted - s/p emergent intervention - ureteral stent placement (10/23/24) outpt records reviewed pt recently treated with cefnidir and doxy for UTI consistent with Enterococcus and E. coli blood/urine cultures obtained ucultx repeated - pending Tx with empiric Vanco/Zosyn until culture results + will need to discuss w/ ID once cultx back continue gentle IVF in setting of concern for volume overload Baseline Cr 1.0, follow post intervention and hydration Cr 1.7 on admission -> now down to 1.3, cont. to monitor T2DM: lantus/novolog per protocol, consult glycemic pharmacy given sepsis, a1c 6.1 in July CAD with hx of coronary Stent Chronic LBBB HTN Nonrheumatic AV stenosis PAF - not on OAC Fusiform dilation of the ascending thoracic aorta, unchanged from prior measuring 4.2 cm. Elevated troponin cont asa, metoprolol; hold lisinopril 2/2 SPARKLE obtain echocardiogram to determine baseline, cycle trops suspect troponin elevation in setting of demand ischemia due to sepsis, no true NSTEMI BPH/LUTS with chronic indwelling balderrama and recurrent UTI : follows urology, hold methenamine hippurate, continue dutasteride Severe late onset Alzheimer's dementia with agitation: continue namenda, buspar, seroquel and risperdal, delirium precautions, follows Psych at [facility] Dr. Dinh Anemia: hgb stable at 11.8, no s/sx of bleeding monitor Abnormal CT Chest: findings: Distended upper to mid debris filled esophagus with wall thickening and adjacent inflammatory stranding. Findings could be correlated with endoscopy., place on PPI bid, consult GI ? if endoscopy warranted at later date Abnormal CT Head: Atherosclerotic plaque of the right carotid bulb results in approximately 70% stenosis. 3. Areas of short segment high-grade stenosis noted within the posterior cerebral arteries. Pt is already on ASA, will obtain lipid panel in the a.m., consider statin for risk reduction therapy; however is benefit > risk given age/dementia? DVT ppx: SQ heparin FULL CODE PCP: Dr. Fonseca @ [facility] Dispo: PCU, will need PT/OT when appropriate Admission and Anticipated Discharge Date Admission Date: October 23, 2024 Subjective Pt seen in follow up of UTI, SPARKLE, AMS (in setting of dementia), ureteral stone s/p stenting w/ urology on admission Currently sitting up in bed in NAD, continues to be very drowsy but overall seems improved since admission not able to provide full ROS per RN, had some banana this AM Cr improved, down to 1.3 Ucultx pending Review of Systems Review of Systems: All systems reviewed & are unremarkable except as noted in Subjective Physical Exam Physical Exam: Constitutional: Elderly, M, DOUGLAS, arousable to vocal stimuli,NAD Head: Normocephalic, Atraumatic Eyes: PERRL, conjunctivae normal, anicteric sclerae ENMT: external ear and nose normal Neck: normal visual inspection Respiratory: normal respiratory effort, lungs clear to auscultation, no wheeze, rales, rhonchi. Cardiovascular: RRR, + syst. murmur, no edema Vessels: no JVD Chest: normal inspection of chest Abdomen: normal bowel sounds, soft, nontender Musculoskeletal: pt does not follow commands for MSK testing due to mental status Skin: no rashes, warm and dry Neuro: no facial palsy, dysarthria noted Psychiatric: A+Ox1 only, drowsy, euthymic affect : +balderrama cath draining yellow urine Results & Data Results & Data Vital Signs (Past 12 Hours) Vital Signs Temp Pulse Pulse Resp BP Pulse Ox O2 Del Method 10/25/24 07:20 36.5 C 73 18 168/54 H 96 Room Air 10/25/24 02:44 36.7 C 58 L 20 112/59 L 95 Room Air 10/24/24 23:12 36.4 C L 60 18 127/84 95 Room Air 10/24/24 21:45 57 L 10/24/24 21:00 Room Air Laboratory Results 10/25/24 10/25/24 10/24/24 Range/Units 07:41 07:13 Unknown Sodium 142 (136-145) mmol/L Potassium 3.9 (3.5-5.1) mmol/L Chloride 110 H (98-107) mmol/L Carbon Dioxide 26 (21-32) mmol/L Anion Gap 6 (3-11) BUN 26 H (6-23) mg/dl Creatinine 1.30 (0.6-1.4) mg/dl Est Cr Clr Drug Dosing 38.5 ml/min eGFR 52.51 BUN/Creatinine Ratio 20.0 (10-20) Glucose 116 H (70-99(Fasting)) mg/dl POC Glucose 105 H (70-99) mg/dl Calcium 8.2 L (8.6-10.3) mg/dl Phosphorus 2.7 D (2.5-4.9) mg/dl Magnesium 1.9 (1.7-2.4) mg/dl Urine Color Yellow Urine Appearance Cloudy A (Clear) Urine pH 5.5 (4.5-7.5) Ur Specific Rogers 1.020 (1.000-1.030) Urine Protein 2+ H (Negative) Urine Glucose (UA) Negative (Negative) Urine Ketones Negative (Negative) Urine Blood 2+ H (Negative) Urine Nitrite Negative (Negative) Urine Bilirubin Negative (Negative) Urine Urobilinogen Negative (Negative) Ur Leukocyte Esterase 2+ H (Negative) Urine RBC 3-5 H (0-2) /hpf Urine WBC >50 H (0-5) /hpf Ur Epithelial Cells 3-5 H (0-2) /hpf Ur Renal Epithelial Cell Present A (None Presnt) /lpf Uric Acid Crystals Present A (None Prsent) Urine Bacteria 3+ H (None Seen) Urine Yeast Present A (None Prsent) 10/24/24 10/24/24 10/24/24 Range/Units 20:12 16:19 11:26 Sodium (136-145) mmol/L Potassium (3.5-5.1) mmol/L Chloride (98-107) mmol/L Carbon Dioxide (21-32) mmol/L Anion Gap (3-11) BUN (6-23) mg/dl Creatinine (0.6-1.4) mg/dl Est Cr Clr Drug Dosing ml/min eGFR BUN/Creatinine Ratio (10-20) Glucose (70-99(Fasting)) mg/dl POC Glucose 132 H 132 H 147 H (70-99) mg/dl Calcium (8.6-10.3) mg/dl Phosphorus (2.5-4.9) mg/dl Magnesium (1.7-2.4) mg/dl Urine Color Urine Appearance (Clear) Urine pH (4.5-7.5) Ur Specific Rogers (1.000-1.030) Urine Protein (Negative) Urine Glucose (UA) (Negative) Urine Ketones (Negative) Urine Blood (Negative) Urine Nitrite (Negative) Urine Bilirubin (Negative) Urine Urobilinogen (Negative) Ur Leukocyte Esterase (Negative) Urine RBC (0-2) /hpf Urine WBC (0-5) /hpf Ur Epithelial Cells (0-2) /hpf Ur Renal Epithelial Cell (None Presnt) /lpf Uric Acid Crystals (None Prsent) Urine Bacteria (None Seen) Urine Yeast (None Prsent) 10/24/24 Range/Units 09:20 Sodium (136-145) mmol/L Potassium (3.5-5.1) mmol/L Chloride (98-107) mmol/L Carbon Dioxide (21-32) mmol/L Anion Gap (3-11) BUN (6-23) mg/dl Creatinine (0.6-1.4) mg/dl Est Cr Clr Drug Dosing ml/min eGFR BUN/Creatinine Ratio (10-20) Glucose (70-99(Fasting)) mg/dl POC Glucose 102 H (70-99) mg/dl Calcium (8.6-10.3) mg/dl Phosphorus (2.5-4.9) mg/dl Magnesium (1.7-2.4) mg/dl Urine Color Urine Appearance (Clear) Urine pH (4.5-7.5) Ur Specific Rogers (1.000-1.030) Urine Protein (Negative) Urine Glucose (UA) (Negative) Urine Ketones (Negative) Urine Blood (Negative) Urine Nitrite (Negative) Urine Bilirubin (Negative) Urine Urobilinogen (Negative) Ur Leukocyte Esterase (Negative) Urine RBC (0-2) /hpf Urine WBC (0-5) /hpf Ur Epithelial Cells (0-2) /hpf Ur Renal Epithelial Cell (None Presnt) /lpf Uric Acid Crystals (None Prsent) Urine Bacteria (None Seen) Urine Yeast (None Prsent) Medications Administered Current Inpatient Medications Acetaminophen (Acetaminophen 325 Mg Tab) 650 mg PO Q4H PRN PRN Reason: Pain or Fever Stop: 11/22/24 17:20 Aspirin ([facility] 81 Mg Ectab) [facility] Stop: 11/23/24 08:59 Last Admin: 10/25/24 08:09 Dose: 81 mg Buspirone HCl (Buspirone 5 Mg Tab) 10 mg PO TID [facility] Stop: 11/22/24 20:59 Last Admin: 10/25/24 08:08 Dose: 10 mg Dextrose (Dextrose 50% 50 Ml Syringe) 25 - 50 ml IV UD PRN; Protocol PRN Reason: Hypoglycemia Protocol Stop: 11/22/24 17:20 Last Admin: 10/23/24 22:04 Dose: 25 ml Diatrizoate Meglumine (Diatrizoate Meglumine 30% 100ml Vial) 100 ml INSTIL UD PRN PRN Reason: intraoperative Stop: 10/27/24 15:51 Last Admin: 10/23/24 15:20 Dose: 8 ml Finasteride (Finasteride 5 Mg Tab) [facility] Stop: 11/23/24 08:59 Last Admin: 10/25/24 08:09 Dose: 5 mg Glucagon (Glucagon For Inj 1 Mg Vial) 1 mg SQ UD PRN; Protocol PRN Reason: Hypoglycemia Protocol Stop: 11/22/24 17:20 Glucose (Glucose 40% Gel 15 Gm Tube) 15 - 30 gm PO UD PRN; Protocol PRN Reason: Hypoglycemia Protocol Stop: 11/22/24 17:20 Glucose (Glucose 10 Tab/Tube) 4 - 8 tab PO UD PRN; Protocol PRN Reason: Hypoglycemia Protocol Stop: 11/22/24 17:20 Heparin Sodium (Porcine) (Heparin Sod 5,000 Unit/0.5 Ml Vial) 5,000 units SQ Q8 [facility] Stop: 11/22/24 21:59 Last Admin: 10/25/24 06:47 Dose: 5,000 units Piperacillin Sod/Tazobactam Sod (Zosyn) 4.5 gm in 100 mls @ 25 mls/hr IV Q8H [facility]; Protocol Stop: 11/02/24 19:59 Last Admin: 10/25/24 04:58 Dose: 25 mls/hr Vancomycin HCl 750 mg/ Sodium (Chloride) 265 mls @ 200 mls/hr IV Q18H [facility] Stop: 11/03/24 04:59 Last Infusion: 10/25/24 06:45 Dose: Infused Insulin Aspart (Insulin Aspart Per Unit Charge) 0 units SC ACHS [facility] Stop: 11/22/24 17:20 Last Admin: 10/25/24 08:07 Dose: Not Given Insulin Glargine (Lantus Per Unit Charge) 0 units SC HS [facility]; Protocol Stop: 11/23/24 20:59 Last Admin: 10/24/24 21:06 Dose: Not Given Lactobacillus Acidophilus (Advanced Probiotic 625 Mg Capsule) 1,250 mg PO DAILY [facility] Stop: 11/23/24 08:59 Last Admin: 10/25/24 08:08 Dose: 1,250 mg Melatonin (Melatonin 3 Mg Tab) 6 mg PO HS PRN PRN Reason: Sleep Stop: 11/22/24 20:59 Memantine (Memantine Hcl 10 Mg Tab) 10 mg PO BID [facility] Stop: 11/22/24 20:59 Last Admin: 10/25/24 08:08 Dose: 10 mg Metoprolol Succinate (Metoprolol Succ 25mg Ext Rel Tab) 12.5 mg PO QAM [facility] Stop: 11/23/24 08:59 Last Admin: 10/25/24 08:09 Dose: 12.5 mg Miscellaneous (Carbohydrates For Hypoglycemia ) 15 - 30 gm PO UD PRN PRN Reason: Hypoglycemia Protocol Stop: 11/22/24 17:20 Miscellaneous Information (Vancomycin Consult Active) 1 each N/A UD PRN PRN Reason: Consult Stop: 11/22/24 14:47 Miscellaneous Information (Pharmacy Glycemic Mgmt Consult) 1 each N/A UD PRN PRN Reason: Consult Stop: 11/22/24 17:20 Ondansetron HCl (Ondansetron Inj 2 Mg/Ml 2 Ml Vial) 4 mg IV Q6H PRN PRN Reason: Nausea Stop: 11/22/24 17:20 Pantoprazole Sodium (Pantoprazole 40 Mg Tab) 40 mg PO BID [facility] Stop: 11/22/24 20:59 Last Admin: 10/25/24 08:08 Dose: 40 mg Polyethylene Glycol (Polyethylene (Miralax) 17 Gm Pack) 17 gm PO QAM [facility] Stop: 11/23/24 08:59 Last Admin: 10/25/24 08:18 Dose: 17 gm Quetiapine Fumarate (Quetiapine Fumarate 25 Mg Tablet) 12.5 mg PO [facility] Stop: 11/22/24 20:59 Last Admin: 10/24/24 21:06 Dose: 12.5 mg Risperidone (Risperidone 0.25 Mg Tab) 0.25 mg PO [facility] Stop: 11/22/24 20:59 Last Admin: 10/24/24 21:06 Dose: 0.25 mg Vitamin B Complex (Vitamin B Complex Tab) [facility] Stop: 11/23/24 08:59 Last Admin: 10/25/24 08:08 Dose: 1 tab Vitamin D (Cholecalciferol 25 Mcg (1000 Units) Tab) 25 mcg [facility] Stop: 11/23/24 08:59 Last Admin: 10/25/24 08:08 Dose: 25 mcg
--- NOTE | 2024-10-25 09:45 | Gastroenterology Progress Note ---
Date of Service October 25, 2024 Assessment & Plan (1) Abnormal abdominal CT scan: Plan Patient was able to tolerate eating some banana this morning and appears more alert. - continue with protonix 40mg bid. - Will discuss case further with Dr. Silva. Further recommendations to follow. Admission and Anticipated Discharge Date Admission Date: October 23, 2024 Supervising Physician Co-Signing Physician Notes I examined the patient and reviewed patient's chart , laboratory data and imaging studies. I agree with with assessment and plan of care as suggested by advanced practice provider. Spoke with the nurses, the patient is able to swallow liquids, he is able to eat small amount of soft/pured food with no discomfort and no distress. No obvious difficulties swallowing. His oral intake is inadequate. Poor oral intake can be related to sepsis, progressive dementia, metabolic encephalopathy. Subjective Patient more alert today but not fully oriented secondary to dementia. I spoke with nursing staff and patient was able to tolerate eating some banana this morning. Review of Systems Review of Systems: unable to accurately obtain secondary to dementia. Physical Exam Constitutional: WD/WN, vitals as above Respiratory: normal respiratory effort, lungs clear to auscultation Cardiovascular: Rate/Rhythm: regular rate and regular rhythm Gastrointestinal (Abdomen): normal bowel sounds, soft, nontender, no hepatosplenomegaly Psychiatric: Orientation: alert Results & Data Results & Data Vital Signs (Past 12 Hours) Vital Signs Temp Pulse Resp BP Pulse Ox O2 Del Method 10/25/24 07:20 97.7 F 73 18 168/54 H 96 Room Air 10/25/24 02:44 98.1 F 58 L 20 112/59 L 95 Room Air 10/24/24 23:12 97.5 F L 60 18 127/84 95 Room Air Coding Level of Care Code 49745 SUB INP/OBS CARE 12/10MIN Diagnoses Abnormal abdominal CT scan R93.5
[2024-10-25] MEDS: LANTUS PER UNIT CHARGE SC SCH (12:27)
[2024-10-26 07:52] LABS: Basophils # (auto) 0.03 K/uL (0.00-0.20); Basophils % (auto) 0.5 %; Eosinophils # (auto) 0.81 K/uL (0.00-0.50); Eosinophils % (auto) 14.3 %; Hematocrit (blood only) 29.7 % (42.0-52.0); Immature Granulocytes # (auto) 0.03 K/uL (0.01-0.20); Immature Granulocytes % (auto) 0.5 %; Lymphocytes # (auto) 0.49 K/uL (1.20-3.40); Lymphocytes % (auto) 8.6 %; Mean Corpuscular Hgb Conc 33.7 g/dL (32.0-36.0); Mean Platelet Volume 9.5 fL (9.4-12.4); Monocytes # (auto) 0.49 K/uL (0.11-0.59); Monocytes % (auto) 8.6 %; Neutrophils # (auto) 3.82 K/uL (1.40-6.50); Neutrophils % (auto) 67.5 %; Platelet Count 168 K/uL (130-400); RDW Coefficient of Variation 13.7 % (11.5-14.5); RDW Standard Deviation 49.8 fL (36.4-46.3); Red Blood Count 3.03 M/uL (4.70-6.10); White Blood Count 5.67 K/ul (4.8-10.8)
[2024-10-26 08:05] LABS: Calcium 8.3 mg/dl (8.6-10.3); Creatinine Clr Calc Pharmacy 44.7 ml/min; Phosphorus 2.5 mg/dl (2.5-4.9)
--- NOTE | 2024-10-26 12:12 | Infectious Disease Consult ---
Date of Service October 26, 2024 Telehealth Information I performed this visit using a real-time telehealth connection between my location and the patients location ([facility]). After connecting through interactive tele-video, patient was identified by name and date of and/or wristband check.Patient (or authorized healthcare open claims representative) was informed that this was a telemedicine visit and it was being conducted confidentially over secure lines. My office door was closed and no one else was present in the room with me.Patient (or authorized healthcare open claims representative) provided consent to proceed with the visit, expressed an understanding of privacy and security of the telemedicine visit, and gave permission to have a hospital open claims representative in the room in order to assist with the visit and to conduct portions of the visit, as needed. I informed the patient (or authorized healthcare open claims representative) that I reviewed their record and presented the opportunity for them to ask any questions regarding the visit today. The patient agreed to participate. Assessment & Plan (1) Acute UTI: Plan: I called the microbiology lab and unfortunately the plates have been discarded - so we will not be able to determine the identities of the bacteria that grew on culture. Given that the patient seems to have a mix of bacteria and Miya albicans, I recommend to discuss with your pharmacist re: the use of fluconazole. If there are no contraindications to fluconazole and the QTc is WNL, then I would give a 2-week course of fluconazole. I would also give a two week course of cefuroxime in an attempt to cover the bacteria. Please note that because we do not have culture results to guide our therapy, this regimen might fail. The patient needs to be monitored closely. While the patient is being treated with antimicrobials, he will need at least weekly CBCd and CMP. These labs will need to be followed by the patient's PCP. Doses will need to be determined by your pharmacist and adjusted by the PCP, if necessary, based on follow up labs. If the patient will be undergoing manipulation, he will need repeat cultures and appropriate antimicrobials prior to the procedure. If any orders were placed, it will be noted above. Otherwise, all orders are deferred to the primary/requesting service. Infectious Disease is signing off and will no longer follow this patient. Contact us for any new issues that arise after we sign off. If any testing finalizes after ID signs off, you must notify us (ID is not automatically notified about any inpatient testing results, regardless of who ordered the test). ID will not follow the patient after discharge. If any antibiotics/lab were recommended, these will need to be managed by the patients PCP. History of Present Illness History of Present Illness The patient was admitted for confusion (in the context of known dementia and a recent episode of UTI, per the EMR). Workup revealed mild to moderate left-sided hydroureteronephrosis secondary to an obstructing 7 mm distal left ureteral calculus with additional calcifications in the region of the distal UPJ versus dependent urinary bladder measuring up to 5 mm. The patient was seen by Urology and they took the patient for ureteral stent placement. The Op note from 10/23 mentions purulent discharge from the left UO. The cultures from 10/23 grew mixed nael. Repeat culture from 10/24 grew C.albicans. The patient reports feeling better and offers no complaints. Allergies Allergy/AdvReac Type Severity Reaction Status Date / Time Sulfa (Sulfonamide Allergy Unknown ON HARMONY Verified 06/25/24 01:56 Antibiotics) MED LIST Home Medications Medication Instructions Recorded Confirmed Type blood glucose control, high #1 ea 11/12/21 07/14/24 Rx (OneTouch Verio High Control solution) lancets 33 gauge (OneTouch Delica #120 ea 12/11/21 07/14/24 Rx Lancets) OneTouch Verio test strips (blood #400 ea 12/13/21 07/14/24 Rx sugar diagnostic) acetaminophen 325 mg tablet 650 mg (2 x 325 mg) PO Q8H PRN 08/02/24 10/23/24 Rx (Tylenol) Pain #30 tabs aspirin 81 mg tablet,delayed 81 mg PO QAM #30 tabs 08/02/24 10/23/24 Rx release cholecalciferol (vitamin D3) 25 1,000 units PO QAM #30 caps 08/02/24 10/23/24 Rx mcg (1,000 unit) capsule dutasteride 0.5 mg capsule 0.5 mg PO QAM #30 caps 08/02/24 10/23/24 Rx insulin aspart U-100 100 unit/mL 1 sliding scale dose subcut ACHS 08/02/24 10/23/24 Rx (3 mL) subcutaneous pen (Novolog #15 mL FlexPen U-100 Insulin aspart) memantine 10 mg tablet 10 mg PO BID 90 days #180 tabs 08/02/24 10/23/24 Rx methenamine hippurate 1 gram tablet 1 g PO BID #60 tabs 08/02/24 10/23/24 Rx metoprolol succinate 25 mg 12.5 mg (1/2 x 25 mg) PO QAM #90 08/02/24 10/23/24 Rx tablet,extended release 24 hr tabs pen needle, diabetic 32 gauge x #400 ea 08/02/24 Rx 32" vitamin B complex 1 cap PO QAM #30 caps 08/02/24 10/23/24 Rx Milk of Magnesia 30 ml PO DAILY PRN Constipation 10/23/24 10/23/24 History acetaminophen 325 mg tablet 650 mg PO DAILY PRN temp >100 10/23/24 10/23/24 History (Tylenol) bisacodyl 10 mg rectal suppository 10 mg SD DAILY PRN Constipation 10/23/24 10/23/24 History (Dulcolax (bisacodyl)) buspirone 10 mg tablet 10 mg PO TID 10/23/24 10/23/24 History docusate sodium 100 mg capsule 100 mg PO DAILY PRN Constipation 10/23/24 10/23/24 History (Colace) guaifenesin 600 mg tablet, 600 mg PO UD 10/23/24 10/23/24 History extended release 12 hr (Mucinex) insulin degludec 100 unit/mL (3 16 unit subcut QAM 10/23/24 10/23/24 History mL) subcutaneous pen (Tresiba FlexTouch U-100 insulin) lisinopril 20 mg tablet 10 mg PO DAILY 10/23/24 10/23/24 History mirabegron 50 mg tablet,extended 50 mg PO UD 10/23/24 10/23/24 History release 24 hr polyethylene glycol 3350 17 17 g PO QAM 10/23/24 10/23/24 History gram/dose oral powder (Miralax) quetiapine 25 mg tablet 12.5 mg PO HS 10/23/24 10/23/24 History risperidone 0.25 mg tablet 0.25 mg PO HS 10/23/24 10/23/24 History Patient History Medical History Fall COVID-19 Dementia Closed rib fracture Chronic anticoagulation Weakness Rhabdomyolysis Right rib fracture 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 Enlarged prostate with lower urinary tract symptoms (LUTS) Other and unspecified hyperlipidemia (06/07/12) Hematospermia Myocardial infarction (06/07/12) Nontoxic multinodular goiter PND (post-nasal drip) Sepsis (06/07/12) Pancytopenia (~2000) Left shoulder strain CHI (closed head injury) Surgical History History of tonsillectomy History of cataract surgery History of arthroscopy of knee History of cystoscopy History of colonoscopy Status post Mohs surgery S/P drug eluting coronary stent placement Family History Brother Coronary heart disease Father Angina pectoris Carcinoma of pancreas Myocardial infarction Mother Congestive heart failure Breast cancer Unknown Diabetes Heart disease Hypertension Daughter Breast cancer Denies family history of Ovarian cancer Prostate cancer Colorectal cancer Social History Smoking Status: Never smoker Tobacco Type: Cigarettes Second Hand Exposure: No; Do You Dip or Chew Tobacco: No; Hx Alcohol Use: No Hx Substance Use: No Preferred Language: Romanian Communication Ability: Impaired Communication Ability Comment: Alert and oriented to person, periods of confusion. Visual Impairment: Limited Hearing Ability: Normal [employer] Required: No Beliefs That Will Affect Care: None marital status: / Current Living Situation: Detention Current Living Situation Comment: [place] current occupational status: retired How many Children do You have: 3 Feels Safe at Home: Yes Childhood Exposure to Second-Hand Smoke: No caffeine: Yes Dental Care, Regularly: Yes Physical Activity Frequency: 1-2 Times per Week Seatbelt Use: always Sunscreen Use: Yes Assistive Devices: Walker and Wheelchair Review of Systems As reviewed in HPI; a complete ROS was otherwise negative Physical Exam Vitals: see EMR Exam limited due to constraints of telemedicine Gen/Constitutional: appears at stated age, NAD, nontoxic Head: AT, NC Eyes: sclera anicteric, no conjunctival injection ENT: MMM, trachea midline Card: appears to be well-perfused Resp: not tachypneic, nml effort, symmetric chest rise, no accessory muscle use Derm: no visible diaphoresis, no visible rash, no visible jaundice Results & Data Vital Signs (Past 12 Hours) Vital Signs Temp Pulse Pulse Resp BP Pulse Ox O2 Del Method 10/26/24 10:50 36.4 C L 50 L 18 127/71 95 Room Air 10/26/24 09:00 Room Air 10/26/24 07:39 57 L 10/26/24 07:06 36.7 C 62 18 160/68 H 96 Room Air 10/26/24 02:03 36.6 C 62 18 153/68 H 94 Room Air Laboratory Results SEE EMR Diagnostic Findings [address] [place] [address] / Director: Jennifer Damon M.D. Clinical Laboratory Report Name: JANAE SOW Kinjal Acct: [id number] Status: ADM [place] : 1935 [facility] [place] Date: 10/23/24 Age: 89 Sex: M Dis Date: Loc: Telemetry [address] [place] [address] Rm/Bed: [facility] Spec: [id number] Collected: 10/23/24 Received: 10/23/24-[address]: Deon Esposito M.D. Source: Blood OV Order: Ordered: Blood Culture Procedure Result Verified Site Blood Culture Aerobic Preliminary 10/25/24 No growth in Aerobic bottle after 48 hours. Blood Culture Anaerobic Preliminary 10/25/24 No growth in Anaerobic bottle after 48 hours. Name: JANAE SOW Kinjal : 1935 PAGE 1 Printed: 10/26/24 1192 END OF REPORT [address] [place] [address] / Director: Jennifer Damon M.D. Clinical Laboratory Report Name: JANAE SOW Kinjal Acct: [id number] Status: ADM IN : 1935 [facility] [place] Date: 10/23/24 Age: 89 Sex: M Dis Date: Loc: Telemetry [address] [place] [address]/Bed: S236-1 Spec: [id number] Collected: 10/23/24-1104 Received: 10/23/24-1110 [facility] Dr: Deon Esposito M.D. Source: Urine,Clean Catch OV Order: Ordered: Urine Culture Procedure Result Verified Site Urine Culture Final 10/24/24 Three types of organisms present, all high counts. Repeat collection recommended. No further identifications or sensitivities to follow. Name: JANAE SOW Kinjal : 1935 PAGE 1 Printed: 10/26/24 [id number] END OF REPORT
--- NOTE | 2024-10-26 15:33 | Hospitalist Progress Note ---
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 Severe Sepsis Complicated UTI Metabolic encephalopathy mild to moderate left-sided hydroureteronephrosis secondary to an obstructing 7 mm distal ureteral calculus patient presenting with acute confusion, tachycardia and leukocytosis head imaging all grossly unremarkable for acute pathology UA suggestive of infection, urine culture grew Miya Blood cultures x 2 sets with no significant growth to date CT abdomen pelvis noting obstructing 7 mm left-sided kidney stone with hydro, Cr elevated at 1.73 Urology consulted - s/p emergent intervention - ureteral stent placement (10/23/24) outpt records reviewed pt recently treated with cefdinir and doxy for UTI consistent with Enterococcus and E. coli treatment was started with empiric Vanco and Zosyn Infectious disease was consulted, appreciate recs commended or stated the following, per Dr Figueroa: "I called the microbiology lab and unfortunately the plates have been discarded - so we will not be able to determine the identities of the bacteria that grew on culture. Given that the patient seems to have a mix of bacteria and Miya albicans, I recommend to discuss with your pharmacist re: the use of fluconazole. If there are no contraindications to fluconazole and the QTc is WNL, then I would give a 2-week course of fluconazole. I would also give a two week course of cefuroxime in an attempt to cover the bacteria. Please note that because we do not have culture results to guide our therapy, this regimen might fail. The patient needs to be monitored closely. While the patient is being treated with antimicrobials, he will need at least weekly CBCd and CMP. These labs will need to be followed by the patient's PCP. Doses will need to be determined by your pharmacist and adjusted by the PCP, if necessary, based on follow up labs. If the patient will be undergoing manipulation, he will need repeat cultures and appropriate antimicrobials prior to the procedure." patient transition to p.o. cefuroxime and fluconazole for a total of 14 days of treatment Continue to monitor Acute Kidney Injury Creatinine elevated at 1.7, Has since downtrended to 1.1 IVF avoid nephrotoxic meds as able Continue to monitor Abnormal CT abd/pelvis Ct abd/pelvis noting "Distended upper to mid debris filled esophagus with wall thickening and adjacent inflammatory stranding" GI consulted, appreciate recs -continue protonix 40mg BID Abnormal CT Head: Atherosclerotic plaque of the right carotid bulb results in approximately 70% stenosis. 3. Areas of short segment high-grade stenosis noted within the posterior cerebral arteries. Pt is already on ASA, will olipid panel, consider statin for risk reduction therapy; however is benefit > risk given age/dementia Chronic Findings: T2DM: lantus/novolog per protocol, consult glycemic pharmacy given sepsis, a1c 6.1 in July CAD with hx of coronary Stent Chronic LBBB HTN Nonrheumatic AV stenosis PAF - not on OAC Fusiform dilation of the ascending thoracic aorta, unchanged from prior measuring 4.2 cm. Elevated troponin cont asa, metoprolol; hold lisinopril 2/2 SPARKLE obtain echocardiogram to determine baseline, cycle trops suspect troponin elevation in setting of demand ischemia due to sepsis, no true NSTEMI BPH/LUTS with chronic indwelling balderrama and recurrent UTI : follows urology, hold methenamine hippurate, continue dutasteride Severe late onset Alzheimer's dementia with agitation: continue namenda, buspar, seroquel and risperdal, delirium precautions, follows Psych at [facility] Dr. Dinh Anemia: hgb stable at 11.8, no s/sx of bleeding monitor Diet: DMII, HH DVT ppx: SQ heparin Dispo: PT/OT ordered for further recs Admission and Anticipated Discharge Date Admission Date: October 23, 2024 Subjective patient was seen sitting up in bed Alert but Minimally conversant denies acute concerns Son [place] called and updated. Updated on course so far. Review of Systems Review of Systems: All systems reviewed & are unremarkable except as noted in Subjective Physical Exam Physical Exam: General: Alert No acute distress Neuro: alert HEENT: NC/AT CV: RRR Resp: Breath sounds clear bilaterally, no increased effort of breathing Abdomen: Soft, nontender Extremities: No edema in lower extremities bilaterally. Results & Data Results & Data Vital Signs (Past 12 Hours) Vital Signs Temp Pulse Pulse Resp BP Pulse Ox O2 Del Method 10/26/24 15:13 36.5 C 56 L 18 129/58 L 95 Room Air 10/26/24 14:13 52 L 10/26/24 10:50 36.4 C L 50 L 18 127/71 95 Room Air 10/26/24 09:00 Room Air 10/26/24 07:39 57 L 10/26/24 07:06 36.7 C 62 18 160/68 H 96 Room Air Diagnostic Findings Retrograde Pyelogram 10/23/24 00:00 FL retrograde includes kub CLINICAL HISTORY: STONEleft-sided cystourethrogram COMPARISON STUDY: None FLUOROSCOPY TIME: 11.8 seconds FLUOROSCOPY IMAGES: 1 EXPOSURE DOSE: 2.91 mGy FINDINGS: Proximal portion of a left ureteral stent appears to be in satisfactory positioning. The distal portion was not imaged. Left-sided hydronephrosis. IMPRESSION: Fluoroscopic assistance as above. ACT 112: Negative or not required by law. Electronically signed by: Elver Herron M.D. 10/24/2024 8:27 AM Chest X-Ray 10/23/24 10:11 XR chest 1V portable HISTORY: 89 years-old Male weakness COMPARISON: 08/01/2024 TECHNIQUE: AP view the chest FINDINGS: Cardiac silhouette is enlarged. Pulmonary vascular congestion. Small pleural effusions with left basilar consolidation. No pneumothorax. Healed chronic left rib fractures. IMPRESSION: 1. Cardiomegaly with pulmonary vascular congestion. 2. Small pleural effusions with left basilar predominant consolidation. 3. Chronic left rib fractures. ACT 112: Negative or not required by law. The above report was generated using voice recognition software. It may contain grammatical, syntax or spelling errors. Electronically signed by: Elver Herron M.D. 10/23/2024 10:52 AM Head CTA 10/23/24 10:11 CT angio head w con, CT head/brain wo con, CT angio neck with con CLINICAL HISTORY: 89 years-old Male with ams, weak. Acute stroke like symptoms with weakness COMPARISON STUDY: Head CT 08/09/2024 TECHNIQUE: Unenhanced axial CT scan of the brain is performed. Subsequently, following the IV administration of 112 cc of Optiray, CT angiogram of the head and neck was performed. Images are reviewed in the axial, sagittal, and coronal planes. 3-D MIPS images are created and assessed. IV contrast was administered without complication. All measurements were obtained according to NASCET criteria. A dose lowering technique was utilized adhering to the principles of A IRWIN. CT DOSE: 3858.43 mGy.cm FINDINGS: CT BRAIN: There is no acute intracranial hemorrhage, midline shift, hydrocephalus, intracranial mass, territorial ischemia or abnormal extra-axial collections. Involutional changes with chronic microvascular ischemic disease. No abnormal intra-axial or extra-axial enhancement. Mastoid air cells and middle ear cavities are clear. No calvarial fracture. Prior bilateral lens repair. Paranasal sinuses are clear. CT ANGIOGRAM OF THE HEAD AND NECK: Three-vessel morphology of the thoracic aortic arch. Patency of the innominate and image subclavian arteries. Atherosclerotic plaque of the carotid bulbs. There is less than 50% stenosis on the right and approximately 70% stenosis on the right. The bilateral anterior and middle cerebral arteries are also patent. Calcified plaque of the V4 segment right vertebral artery causes mild stenosis. Short segment high-grade stenosis of the P1 segment left posterior tibial artery image 140. Additional focus of short segment high-grade stenosis of the right posterior cerebral artery on image 128. Cerebral venous sinuses are patent. Lung apices are clear without pneumothorax. Debris noted within the mildly distended upper thoracic esophagus which demonstrates circumferential wall thickening. Unremarkable soft tissues. Degenerative changes of the cervical spine without acute fracture. IMPRESSION: 1. No acute intracranial abnormality. 2. Atherosclerotic plaque of the right carotid bulb results in approximately 70% stenosis. 3. Areas of short segment high-grade stenosis noted within the posterior cerebral arteries. 4. No aneurysm, dissection or arterial occlusion. 5. Debris-filled mildly distended esophagus with wall thickening. Please refer to the chest CT of same day for additional findings. ACT 112: Negative or not required by law. The above report was generated using voice recognition software. It may contain grammatical, syntax or spelling errors. Electronically signed by: Elver Herron M.D. 10/23/2024 12:56 PM Neck CTA 10/23/24 10:11 CT angio head w con, CT head/brain wo con, CT angio neck with con CLINICAL HISTORY: 89 years-old Male with ams, weak. Acute stroke like symptoms with weakness COMPARISON STUDY: Head CT 08/09/2024 TECHNIQUE: Unenhanced axial CT scan of the brain is performed. Subsequently, following the IV administration of 112 cc of Optiray, CT angiogram of the head and neck was performed. Images are reviewed in the axial, sagittal, and coronal planes. 3-D MIPS images are created and assessed. IV contrast was administered without complication. All measurements were obtained according to NASCET criteria. A dose lowering technique was utilized adhering to the principles of ALARA. CT DOSE: 3858.43 mGy.cm FINDINGS: CT BRAIN: There is no acute intracranial hemorrhage, midline shift, hydrocephalus, intracranial mass, territorial ischemia or abnormal extra-axial collections. Involutional changes with chronic microvascular ischemic disease. No abnormal intra-axial or extra-axial enhancement. Mastoid air cells and middle ear cavities are clear. No calvarial fracture. Prior bilateral lens repair. Paranasal sinuses are clear. CT ANGIOGRAM OF THE HEAD AND NECK: Three-vessel morphology of the thoracic aortic arch. Patency of the innominate and image subclavian arteries. Atherosclerotic plaque of the carotid bulbs. There is less than 50% stenosis on the right and approximately 70% stenosis on the right. The bilateral anterior and middle cerebral arteries are also patent. Calcified plaque of the V4 segment right vertebral artery causes mild stenosis. Short segment high-grade stenosis of the P1 segment left posterior tibial artery image 140. Additional focus of short segment high-grade stenosis of the right posterior cerebral artery on image 128. Cerebral venous sinuses are patent. Lung apices are clear without pneumothorax. Debris noted within the mildly distended upper thoracic esophagus which demonstrates circumferential wall thickening. Unremarkable soft tissues. Degenerative changes of the cervical spine without acute fracture. IMPRESSION: 1. No acute intracranial abnormality. 2. Atherosclerotic plaque of the right carotid bulb results in approximately 70% stenosis. 3. Areas of short segment high-grade stenosis noted within the posterior cere bral arteries. 4. No aneurysm, dissection or arterial occlusion. 5. Debris-filled mildly distended esophagus with wall thickening. Please refer to the chest CT of same day for additional findings. ACT 112: Negative or not required by law. The above report was generated using voice recognition software. It may contain grammatical, syntax or spelling errors. Electronically signed by: Elver Herron M.D. 10/23/2024 12:[address] 10/23/24 10:12 CT angio head w con, CT head/brain wo con, CT angio neck with con CLINICAL HISTORY: 89 years-old Male with ams, weak. Acute stroke like symptoms with weakness COMPARISON STUDY: Head CT 08/09/2024 TECHNIQUE: Unenhanced axial CT scan of the brain is performed. Subsequently, following the IV administration of 112 cc of Optiray, CT angiogram of the head and neck was performed. Images are reviewed in the axial, sagittal, and coronal planes. 3-D MIPS images are created and assessed. IV contrast was administered without complication. All measurements were obtained according to NASCET criteria. A dose lowering technique was utilized adhering to the principles of ALARA. CT DOSE: 3858.43 mGy.cm FINDINGS: CT BRAIN: There is no acute intracranial hemorrhage, midline shift, hydrocephalus, intracranial mass, territorial ischemia or abnormal extra-axial collections. Involutional changes with chronic microvascular ischemic disease. No abnormal intra-axial or extra-axial enhancement. Mastoid air cells and middle ear cavities are clear. No calvarial fracture. Prior bilateral lens repair. Paranasal sinuses are clear. CT ANGIOGRAM OF THE HEAD AND NECK: Three-vessel morphology of the thoracic aortic arch. Patency of the innominate and image subclavian arteries. Atherosclerotic plaque of the carotid bulbs. There is less than 50% stenosis on the right and approximately 70% stenosis on the right. The bilateral anterior and middle cerebral arteries are also patent. Calcified plaque of the V4 segment right vertebral artery causes mild stenosis. Short segment high-grade stenosis of the P1 segment left posterior tibial artery image 140. Additional focus of short segment high-grade stenosis of the right posterior cerebral artery on image 128. Cerebral venous sinuses are patent. Lung apices are clear without pneumothorax. Debris noted within the mildly distended upper thoracic esophagus which demonstrates circumferential wall thickening. Unremarkable soft tissues. Degenerative changes of the cervical spine without acute fracture. IMPRESSION: 1. No acute intracranial abnormality. 2. Atherosclerotic plaque of the right carotid bulb results in approximately 70% stenosis. 3. Areas of short segment high-grade stenosis noted within the posterior cerebral arteries. 4. No aneurysm, dissection or arterial occlusion. 5. Debris-filled mildly distended esophagus with wall thickening. Please refer to the chest CT of same day for additional findings. ACT 112: Negative or not required by law. The above report was generated using voice recognition software. It may contain grammatical, syntax or spelling errors. Electronically signed by: Elver Herron M.D. 10/23/2024 12:56 PM Abdomen/Pelvis CT 10/23/24 11:11 CT chest diagnostic wo con, CT abd pelvis wo con CLINICAL HISTORY: 89 years-old Male with weak, ams, SPARKLE. Acute chest abdominal pain with weakness TECHNIQUE: Multiaxial CT images of the chest, abdomen and pelvis were performed without contrast. A dose lowering technique was utilized adhering to the principles of ALARA. COMPARISON: CT abdomen and pelvis 12/16/2023, CT chest 06/29/2021 FINDINGS: CT CHEST: No thyroid nodule or lymphadenopathy. Cardiomegaly with extensive coronary artery calcifications. Trace pericardial effusion. Atherosclerosis of the thoracic aorta with mild fusiform dilation of the ascending segment, 4.2 x 4.2 cm, unchanged from prior. Mild dilation of the pulmonary arteries suggestive of pulmonary arterial hypertension. No lymphadenopathy. Trace right and moderate left pleural effusions. Areas of mild pleural thickening noted on the left. No pneumothorax. Left right dependent bibasilar opacities suggestive of atelectasis. Intralobular septal thickening. Esophageal wall thickening noted along with esophageal distention and mild adjacent inflammatory stranding debris-filled upper to mid esophagus. Unremarkable soft tissues. Healing subacute-appearing bilateral rib fractures. No acute fracture identified. CT ABDOMEN/PELVIS: There is no pneumatosis or pneumoperitoneum. Unremarkable spleen, atrophic pancreas and adrenal glands. Distended gallbladder with cholelithiasis. A tiny punctate stone is seen within the alexys hepatis which is unchanged from prior. Unremarkable liver. 3 mm nonobstructing calculus of the inferior pole right kidney. There is a punctate calcification involving the left renal sinus on image 147. There is decreased amount of left renal calculi compared to the prior. There is moderate left-sided hydroureteronephrosis with perinephric and periureteral stranding. There is an obstructing 7 mm distal left ureteral calculus on image 288. Additional clustered calcifications within the region of the distal UPJ versus dependent bladder measuring up to 5 mm. A Balderrama catheter is noted within the bladder. Wall thickening of the bladder with perivesicular stranding. Prostatomegaly. Atherosclerosis of the aorta. Moderate colonic fecal retention. No bowel obstruction or bowel wall thickening. Unremarkable soft tissues. No acute fracture. 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 IMPRESSION: 1. Cardiomegaly with fusiform dilation of the ascending thoracic aorta, unchanged from prior measuring 4.2 cm. 2. Mild interstitial pulmonary edema with trace right and moderate left pleural effusions with left greater than right bibasilar atelectasis. 3. Mild pleural thickening at the left lung base. 4. Distended upper to mid debris filled esophagus with wall thickening and adjacent inflammatory stranding. Findings could be correlated with endoscopy. 5. Healing subacute bilateral rib fractures without pneumothorax. 6. [id number] left-sided hydroureteronephrosis secondary to an obstructing 7 mm distal left ureteral calculus with additional calcifications in the region of the distal UPJ versus dependent urinary bladder measuring up to 5 mm. 7. No bowel obstruction or bowel wall thickening. 8. Additional findings as above. ACT 112: Negative or not required by law. Electronically signed by: Elver Herron M.D. 10/23/2024 1:[address] 10/23/24 11:11 CT chest diagnostic wo con, CT abd pelvis wo con CLINICAL HISTORY: 89 years-old Male with weak, ams, SPARKLE. Acute chest abdominal pain with weakness TECHNIQUE: Multiaxial CT images of the chest, abdomen and pelvis were performed without contrast. A dose lowering technique was utilized adhering to the principles of ALARA. COMPARISON: CT abdomen and pelvis 12/16/2023, CT chest 06/29/2021 FINDINGS: CT CHEST: No thyroid nodule or lymphadenopathy. Cardiomegaly with extensive coronary artery calcifications. Trace pericardial effusion. Atherosclerosis of the thoracic aorta with mild fusiform dilation of the ascending segment, 4.2 x 4.2 cm, unchanged from prior. Mild dilation of the pulmonary arteries suggestive of pulmonary arterial hypertension. No lymphadenopathy. Trace right and moderate left pleural effusions. Areas of mild pleural thickening noted on the left. No pneumothorax. Left right dependent bibasilar opacities suggestive of atelectasis. Intralobular septal thickening. Esophageal wall thickening noted along with esophageal distention and mild adjacent inflammatory stranding debris-filled upper to mid esophagus. Unremarkable soft tissues. Healing subacute-appearing bilateral rib fractures. No acute fracture identified. CT ABDOMEN/PELVIS: There is no pneumatosis or pneumoperitoneum. Unremarkable spleen, atrophic pancreas and adrenal glands. Distended gallbladder with cholelithiasis. A tiny punctate stone is seen within the alexys hepatis which is unchanged from prior. Unremarkable liver. 3 mm nonobstructing calculus of the inferior pole right kidney. There is a punctate calcification involving the left renal sinus on image 147. There is decreased amount of left renal calculi compared to the prior. There is moderate left-sided hydroureteronephrosis with perinephric and periureteral stranding. There is an obstructing 7 mm distal left ureteral calculus on image 288. Additional clustered calcifications within the region of the distal UPJ versus dependent bladder measuring up to 5 mm. A Balderrama catheter is noted within the bladder. Wall thickening of the bladder with perivesicular stranding. Prostatomegaly. Atherosclerosis of the aorta. Moderate colonic fecal retention. No bowel obstruction or bowel wall thickening. Unremarkable soft tissues. No acute fracture. 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 IMPRESSION: 1. Cardiomegaly with fusiform dilation of the ascending thoracic aorta, unchanged from prior measuring 4.2 cm. 2. Mild interstitial pulmonary edema with trace right and moderate left pleural effusions with left greater than right bibasilar atelectasis. 3. Mild pleural thickening at the left lung base. 4. Distended upper to mid debris filled esophagus with wall thickening and adjacent inflammatory stranding. Findings could be correlated with endoscopy. 5. Healing subacute bilateral rib fractures without pneumothorax. 6. [id number] left-sided hydroureteronephrosis secondary to an obstructing 7 mm distal left ureteral calculus with additional calcifications in the region of the distal UPJ versus dependent urinary bladder measuring up to 5 mm. 7. No bowel obstruction or bowel wall thickening. 8. Additional findings as above. ACT 112: Negative or not required by law. Electronically signed by: Elver Herron M.D. 10/23/2024 1:08 PM
[2024-10-26] MEDS: FLUCONAZOLE 100 MG TAB PO SCH (20:38)
[2024-10-26] MEDS: cefUROXime axetil 250 MG TABLET PO SCH (20:46)
[2024-10-27 05:47] LABS: Basophils # (auto) 0.02 K/uL (0.00-0.20); Basophils % (auto) 0.4 %; Eosinophils # (auto) 0.82 K/uL (0.00-0.50); Eosinophils % (auto) 15.3 %; Hematocrit (blood only) 30.7 % (42.0-52.0); Hemoglobin 10.3 g/dl (14.0-18.0); Immature Granulocytes # (auto) 0.02 K/uL (0.01-0.20); Immature Granulocytes % (auto) 0.4 %; Lymphocytes # (auto) 0.94 K/uL (1.20-3.40); Lymphocytes % (auto) 17.6 %; Mean Corpuscular Hemoglobin 32.7 pg (25.0-34.0); Mean Corpuscular Hgb Conc 33.6 g/dL (32.0-36.0); Mean Corpuscular Volume 97.5 fL (80.0-100.0); Mean Platelet Volume 8.9 fL (9.4-12.4); Monocytes # (auto) 0.49 K/uL (0.11-0.59); Monocytes % (auto) 9.2 %; Neutrophils # (auto) 3.06 K/uL (1.40-6.50); Neutrophils % (auto) 57.1 %; Platelet Count 157 K/uL (130-400); RDW Coefficient of Variation 13.7 % (11.5-14.5); RDW Standard Deviation 48.9 fL (36.4-46.3); Red Blood Count 3.15 M/uL (4.70-6.10); White Blood Count 5.35 K/ul (4.8-10.8)
[2024-10-27 06:04] LABS: BUN Creatinine Ratio 12.7 (10-20); Calcium 8.4 mg/dl (8.6-10.3); Creatinine Clr Calc Pharmacy 45.5 ml/min; Magnesium 1.9 mg/dl (1.7-2.4); Phosphorus 2.4 mg/dl (2.5-4.9); Potassium 4.2 mmol/L (3.5-5.1)
[2024-10-27 07:40] VITALS: RESP 18
[2024-10-27] MEDS: POT PHOSPHATE MONOBASIC W/ SOD TAB PO SCH (09:39)
--- NOTE | 2024-10-27 11:01 | Hospitalist Progress Note ---
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 Severe Sepsis Complicated UTI Metabolic encephalopathy mild to moderate left-sided hydroureteronephrosis secondary to an obstructing 7 mm distal ureteral calculus patient presenting with acute confusion, tachycardia and leukocytosis head imaging all grossly unremarkable for acute pathology UA suggestive of infection, urine culture grew Miya Blood cultures x 2 sets with no significant growth to date CT abdomen pelvis noting obstructing 7 mm left-sided kidney stone with hydro, Cr elevated at 1.73 Urology consulted - s/p emergent intervention - ureteral stent placement (10/23/24) outpt records reviewed pt recently treated with cefdinir and doxy for UTI consistent with Enterococcus and E. coli treatment was started with empiric Vanco and Zosyn Infectious disease was consulted, appreciate recs commended or stated the following, per Dr Figueroa: "I called the microbiology lab and unfortunately the plates have been discarded - so we will not be able to determine the identities of the bacteria that grew on culture. Given that the patient seems to have a mix of bacteria and Miya albicans, I recommend to discuss with your pharmacist re: the use of fluconazole. If there are no contraindications to fluconazole and the QTc is WNL, then I would give a 2-week course of fluconazole. I would also give a two week course of cefuroxime in an attempt to cover the bacteria. Please note that because we do not have culture results to guide our therapy, this regimen might fail. The patient needs to be monitored closely. While the patient is being treated with antimicrobials, he will need at least weekly CBCd and CMP. These labs will need to be followed by the patient's PCP. Doses will need to be determined by your pharmacist and adjusted by the PCP, if necessary, based on follow up labs. If the patient will be undergoing manipulation, he will need repeat cultures and appropriate antimicrobials prior to the procedure." patient transition to p.o. cefuroxime and fluconazole for a total of 14 days of treatment Per family request, urology consulted on 10/27/2024 and they advised to not cancel upcoming surgical procedure currently scheduled. Continue to monitor Acute Kidney Injury Creatinine elevated at 1.7, Has since downtrended to 1.1 IVF avoid nephrotoxic meds as able Continue to monitor Abnormal CT abd/pelvis Ct abd/pelvis noting "Distended upper to mid debris filled esophagus with wall thickening and adjacent inflammatory stranding" GI consulted, appreciate recs -continue protonix 40mg BID Abnormal CT Head: Atherosclerotic plaque of the right carotid bulb results in approximately 70% stenosis. 3. Areas of short segment high-grade stenosis noted within the posterior cerebral arteries. Pt is already on ASA, will olipid panel, consider statin for risk reduction therapy; however is benefit > risk given age/dementia Chronic Findings: T2DM: lantus/novolog per protocol, consult glycemic pharmacy given sepsis, a1c 6.1 in July CAD with hx of coronary Stent Chronic LBBB HTN Nonrheumatic AV stenosis PAF - not on OAC Fusiform dilation of the ascending thoracic aorta, unchanged from prior measuring 4.2 cm. Elevated troponin cont asa, metoprolol; hold lisinopril 2/2 SPARKLE obtain echocardiogram to determine baseline, cycle trops suspect troponin elevation in setting of demand ischemia due to sepsis, no true NSTEMI BPH/LUTS with chronic indwelling balderrama and recurrent UTI : follows urology, hold methenamine hippurate, continue dutasteride Severe late onset Alzheimer's dementia with agitation: continue namenda, buspar, seroquel and risperdal, delirium precautions, follows Psych at [facility] Dr. Dinh Anemia: hgb stable at 11.8, no s/sx of bleeding monitor Diet: DMII, HH DVT ppx: SQ heparin Dispo: PT/OT ordered for further recs Admission and Anticipated Discharge Date Admission Date: October 23, 2024 Subjective patient was seen in the a.m. A bit sleepy today, refusing medications from nursing staff Also refusing to turn during the examination Son called and updated in the evening with urology recs Review of Systems Review of Systems: All systems reviewed & are unremarkable except as noted in Subjective Physical Exam Physical Exam: General: Alert No acute distress Neuro: alert HEENT: NC/AT CV: RRR Resp: Breath sounds clear bilaterally, no increased effort of breathing Abdomen: Soft, nontender Extremities: No edema in lower extremities bilaterally. Results & Data Results & Data Vital Signs (Past 12 Hours) Vital Signs Temp Pulse Pulse Resp BP BP Pulse Ox 10/27/24 08:00 60 10/27/24 07:39 36.6 C 74 18 144/78 H 95 10/27/24 03:07 36.6 C 71 16 140/80 97 10/26/24 23:13 36.8 C 100 H 17 171/77 H 95 10/26/24 23:03 36.5 C 77 16 168/55 H 95 O2 Del Method 10/27/24 08:00 10/27/24 07:39 Room Air 10/27/24 03:07 Room Air 10/26/24 23:13 Room Air 10/26/24 23:03 Room Air
--- NOTE | 2024-10-27 12:39 | Electrocardiogram Report ---
Test Reason : Blood Pressure : */* mmHG Vent. Rate : 71 BPM Atrial Rate : 105 BPM P-R Int : * ms QRS Dur : 150 ms QT Int : 454 ms P-R-T Axes : * -50 90 degrees QTcB Int : 493 ms Sinus rhythm with frequent Premature atrial complexes Left bundle branch block Abnormal ECG When compared with ECG of 23-Oct-2024 10:19, Premature atrial complexes now present Confirmed by Arsalan Patel ([id number]) on 10/27/2024 12:39:28 PM Referred By: Chencho roca [facility] Confirmed By: Arsalan Patel
[2024-10-27] MEDS: MELATONIN 3 MG TAB PO PRN (21:53)
[2024-10-28 07:22] LABS: Basophils # (auto) 0.02 K/uL (0.00-0.20); Basophils % (auto) 0.4 %; Eosinophils # (auto) 0.79 K/uL (0.00-0.50); Eosinophils % (auto) 17.2 %; Hematocrit (blood only) 29.1 % (42.0-52.0); Hemoglobin 9.6 g/dl (14.0-18.0); Immature Granulocytes # (auto) 0.02 K/uL (0.01-0.20); Immature Granulocytes % (auto) 0.4 %; Lymphocytes # (auto) 0.82 K/uL (1.20-3.40); Lymphocytes % (auto) 17.9 %; Monocytes # (auto) 0.39 K/uL (0.11-0.59); Monocytes % (auto) 8.5 %; Neutrophils # (auto) 2.55 K/uL (1.40-6.50); Neutrophils % (auto) 55.6 %; Platelet Count 147 K/uL (130-400); RDW Coefficient of Variation 13.8 % (11.5-14.5); RDW Standard Deviation 49.1 fL (36.4-46.3); White Blood Count 4.59 K/ul (4.8-10.8)
[2024-10-28 07:36] LABS: Albumin Level 2.6 gm/dl (3.4-5.0); BUN Creatinine Ratio 13.3 (10-20); Bilirubin,Total 0.5 mg/dl (0.2-1.0); Creatinine Clr Calc Pharmacy 47.7 ml/min; Globulin 2.6 gm/dl (2.5-4.0); Magnesium 1.9 mg/dl (1.7-2.4); Phosphorus 3.2 mg/dl (2.5-4.9); Potassium 3.2 mmol/L (3.5-5.1); Total Protein 5.2 gm/dl (6.0-8.3)
--- NOTE | 2024-10-28 10:06 | Pharmacy Report ---
Pharmacy Glycemic Short Note 2 - Date of Service October 28, 2024 - Glycemic Short BSG Results (Last 24 hours): 10/27/24 10/27/24 10/27/24 11:07 16:16 20:09 Glucose POC Glucose 200 H 192 H 138 H 10/28/24 10/28/24 07:04 07:20 Glucose 121 H POC Glucose 127 H OUTPATIENT ANTIDIABETIC REGIMEN: * Tresiba 16 units QAM * NovoLog ACHS CF 35 CR 8 * HbA1c 6.2% 10/24/24 ASSESSMENT: 10/28: * Renal function improved over the last few days. IV antibiotics changed to PO. * Food intake is still minimal, limited carbs. BSGs yesterday were 104-177-212-138 mg/dl. * Patient received 5 units of basal and 5 units of bolus insulins yesterday. * Fasting BSG today was 121 mg/dl. Will continue with current basal dosing - 5 units in AM and dosing scale (0 or 5 units) based on BSG at HS. * Also, continue Novolog at same parameters. 10/24/24: * Terry is a 89 YOM admitted with SPARKLE/urosepsis and a history of T2DM. Pharmacy has been consulted to assist with glycemic management while inpatient. * Fasting BSG this AM slightly low, but acceptable. No basal insulin given yesterday, Tresiba likely still hanging on with SPARKLE and less need with reduced oral intake. Will add a basal scale at bedtime again based on BSGs * Will tighten NovoLog slightly, may need tightened further when oral intake improves. He is receiving vancomycin and Zosyn for treatment of urosepsis. PLAN FOR INPATIENT GLYCEMIC CONTROL: * Basal insulin * Lantus 5 units SQ QAM * Lantus 0-5 units SQ HS based on BSG (none if BSG less than 180 mg/dl) * Bolus insulin * NovoLog per scale ACHS or Q6hrs while NPO * Goal Range: Low 120 mg/dL - High 160 mg/dL * Correction Factor: 35 mg/dL/unit * Nutritional / Prandial insulin per carb ratio of 1 unit per 12 grams CHO c onsumed
[2024-10-28] MEDS: POTASSIUM CHLORIDE CRTAB 20 MEQ TABCR PO STA (10:24)
[2024-10-28 11:03] VITALS: BP 140/83; TEMP 97.3; O2SAT 95
[2024-10-28] MEDS: POTASSIUM CHLORIDE 20 MEQ/15 ML UDC PO STA (11:53)
--- NOTE | 2024-10-28 13:17 | Discharge Summary ---
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 Severe Sepsis Complicated UTI Metabolic encephalopathy mild to moderate left-sided hydroureteronephrosis secondary to an obstructing 7 mm distal ureteral calculus Patient presenting with acute confusion, tachycardia and leukocytosis Head imaging all grossly unremarkable for acute pathology UA suggestive of infection, urine culture grew Miya Blood cultures x 2 sets with no significant growth to date CT abdomen pelvis noting obstructing 7 mm left-sided kidney stone with hydro, Cr elevated at 1.73 on admission Urology consulted - s/p emergent intervention - ureteral stent placement (10/23/24) outpt records reviewed pt recently treated with cefdinir and doxy for UTI consistent with Enterococcus and E. coli On admission, treatment was started with empiric Vanco and Zosyn Infectious disease was consulted, Recommended or stated the following, per Dr Figueroa: "I called the microbiology lab and unfortunately the plates have been discarded - so we will not be able to determine the identities of the bacteria that grew on culture. Given that the patient seems to have a mix of bacteria and Miya albicans, I recommend to discuss with your pharmacist re: the use of fluconazole. If there are no contraindications to fluconazole and the QTc is WNL, then I would give a 2-week course of fluconazole. I would also give a two week course of cefuroxime in an attempt to cover the bacteria. Please note that because we do not have culture results to guide our therapy, this regimen might fail. The patient needs to be monitored closely. While the patient is being treated with antimicrobials, he will need at least weekly CBCd and CMP. These labs will need to be followed by the patient's PCP. Doses will need to be determined by your pharmacist and adjusted by the PCP, if necessary, based on follow up labs. If the patient will be undergoing manipulation, he will need repeat cultures and appropriate antimicrobials prior to the procedure." Patient was transitioned to p.o. cefuroxime and fluconazole and completed 2 days worth of treatment while hospitalized. He was discharged with an additional 12 days to complete a total of 14 days of treatment. Per family request, urology consulted on 10/27/2024 and they advised to not cancel upcoming surgical procedure currently scheduled for the week after discharge. Pt discharged with balderrama in place with close Urology followup Per patient's son, urology instructed them to hold aspirin from 10/29/2024, please hold. Please ensure close follow-up with urology after discharge Acute Kidney Injury Creatinine elevated at 1.7, Has since downtrended to normal values after stent placement Also received IV fluids avoid nephrotoxic meds as able-held lisinopril, resumed on discharge Cr normal on dc PCP continued follow-up Abnormal CT abd/pelvis Ct abd/pelvis noting "Distended upper to mid debris filled esophagus with wall thickening and adjacent inflammatory stranding" GI consulted, recommended/stated the following: -Possible esophagitis - no EGD inpatient -continue protonix 40mg BID Patient discharged with Protonix 40 mg twice daily Please ensure close GI follow-up after discharge Abnormal CT Head Noted "Atherosclerotic plaque of the right carotid bulb results in approximately 70% stenosis. 3. Areas of short segment high-grade stenosis noted within the posterior cerebral arteries." Pt is already on ASA Lipid panel normal consider statin for risk reduction therapy- discussion needed about whether benefit > risk given age/dementia PCP follow-up Severe late onset Alzheimer's dementia with agitation Extensive discussion with patient's son on 10/28/2024, Case also discussed with patient's psychiatrist Dr. Dinh at [facility] and medications reviewed Patient was switched from Seroquel 12.5 mg daily to risperidone 0.25 mg daily on October 18, 2024. Dr. Dinh also questioning whether to switch in medications could also have precipitated his acute presentation or be contributory. Recommending that if there was concern for this, patient should be switched back to his Seroquel 12.5 mg daily. Discussion with patient's son about these recommendations, he would like patient to continue with risperidone at this time and will follow-up with Dr. Whitlock at the currently scheduled follow up appointment on Friday, November 01, 2024 Seroquel discontinued and taken off of the med list Per patient's psychiatrist Dr. Dinh, pt also on memantine 10 mg twice daily and BuSpar 10 mg 3 times daily which were continued Please ensure close psychiatry follow-up after discharge. CAD with hx of coronary Stent Chronic LBBB HTN Nonrheumatic AV stenosis PAF - not on anticoagulation Fusiform dilation of the ascending thoracic aorta, unchanged from prior measuring 4.2 cm. Elevated troponin Troponin was acutely elevated EKG without concern for acute ischemia Echo from 10/24/24 with noted EF of 55 to 60%, mild LVH, normal wall motion function, severe focal calcification of right coronary cusp of aortic valve, mild to moderate aortic stenosis Suspect troponin elevation in setting of demand ischemia due to sepsis and acute body/coronary stressors, no true NSTEMI Patient with one episode of atrial fibrillation with controlled heart rate (known Hx of PAF) during hospitalization otherwise sinus with chronic left bundle branch block, sometimes mild sinus bradycardia Usually on aspirin, currently on hold on discharge for upcoming urological procedure On metoprolol with parameters to hold for heart rate less than 60, continue to hold metoprolol after discharge for heart rate less than 60 Held lisinopril secondary to SPARKLE, resumed on discharge Consider Cardiology followup/clearance after discharge for anticipated upcoming procedure BPH/LUTS with chronic indwelling balderrama and recurrent UTI follows with urology holding methenamine hippurate until acute antibiotic course completed continue dutasteride Pt discharged with balderrama in place with close Urology followup Chronic Anemia hgb stable at 9.6 postop, down from 11 on admission Expected drop postoperatively no s/sx of bleeding on discharge PCP follow-up after discharge for continued monitoring Notes For Next Care Provider Please ensure follow-up with urology as scheduled. Please ensure follow-up with psychiatry as scheduled Per infectious disease, will need weekly CBC and CMP while on antibiotics listed below Consider Cardiology followup/clearance after discharge for anticipated upcoming procedure Medication Changes From Visit Per infectious disease: Continue with p.o. cefuroxime and Diflucan to complete 14 days of treatment Holding methenamine until completion of acute antibiotic regimen Hold aspirin from 10/29/2024 as well until after urological procedure the week after discharge Per GI: Continue pantoprazole 40 mg twice daily Seroquel discontinued and taken off of med list On metoprolol- HOLD for HR less than 60 Admission HPI Per Admitting Provider This is an 89-year-old male who has a significant past medical history of PAF not on any anticoagulation, CAD, LBBB, HTN, nonrheumatic valve aortic stenosis, HLD, T2DM with peripheral neuropathy and diabetic retinopathy, nontoxic multinodular goiter, 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 History obtained from outpatient chart review as well as son and [id number]. Patient has underlying dementia but typically is able to hold a conversation. Currently he knows himself, but is unable to answer any pertinent question. In ED patient was felt to be septic due to leukocytosis and tachycardia. Urinalysis concerning for infection and a gentleman who has a chronic indwelling Balderrama catheter and prior history of recurrent urinary tract infections. CT abdomen pelvis reveal mild to moderate left-sided hydroureteronephrosis secondary to an obstructing 7 mm distal left ureteral calculus with additional calcifications in the region of the distal UPJ versus dependent urinary bladder measuring up to 5 mm. I discussed case with urology who obtained consent from son to proceed for urologic intervention secondary to sepsis and SPARKLE. Patient's baseline creatinine is 1.0. His current creatinine is 1.73. He also has a mild elevation his troponin 85.2. His procalcitonin is normal. Chest CT reveals cardiomegaly with fusiform dilation of the ascending thoracic aorta unchanged measuring 4.2 cm, mild interstitial pulmonary edema with trace right and left oral effusions with mild bibasilar atelectasis. Also noted was distending the upper to mid debris-filled esophagus with wall thickening and adjacent inflammatory stranding. Admission Exam Per Admitting Provider Constitutional: Elderly, M, [place], arousable to vocal stimuli, vitals as above, NAD Head: Normocephalic, Atraumatic Eyes: PERRL, conjunctivae normal, anicteric sclerae ENMT: external ear and nose normal, oropharynx normal dry membranes Neck: trachea midline, no thyromegaly normal visual inspection Respiratory: normal respiratory effort, lungs clear to auscultation, no wheeze, rales, rhonchi. Cardiovascular: RRR, 2/6 harsh CHRISTOPHER, no edema Vessels: no JVD or carotid bruit Chest: normal inspection of chest Abdomen: normal bowel sounds, soft, nontender, no hepatosplenomegaly Musculoskeletal: no cyanosis or clubbing, pt does not follow commands for MSK testing due to mental status Skin: no rashes, warm and dry normal turgor Neuro: no facial palsy, dysarthria noted Psychiatric: A+Ox1 only, drowsy, euthymic affect : +balderrama cath draining yellow urine Discharge Exam General: difficult to arouse but talks once aroused Neuro: difficulty with movements in the bed HEENT: NC/AT CV: RRR Resp: no increased effort of breathing Abdomen: Soft, nontender Updated Medication List Medication Instructions Recorded Confirmed Type acetaminophen 325 mg tablet 650 mg (2 x 325 mg) PO Q8H PRN 08/02/24 10/23/24 Rx (Tylenol) Pain #30 tabs aspirin 81 mg tablet,delayed 81 mg PO QAM #30 tabs 08/02/24 10/23/24 Rx release cholecalciferol (vitamin D3) 25 1,000 units PO QAM #30 caps 08/02/24 10/23/24 Rx mcg (1,000 unit) capsule dutasteride 0.5 mg capsule 0.5 mg PO QAM #30 caps 08/02/24 10/23/24 Rx insulin aspart U-100 100 unit/mL 1 sliding scale dose subcut ACHS 08/02/24 10/23/24 Rx (3 mL) subcutaneous pen (Novolog #15 mL FlexPen U-100 Insulin aspart) memantine 10 mg tablet 10 mg PO BID 90 days #180 tabs 08/02/24 10/23/24 Rx methenamine hippurate 1 gram tablet 1 g PO BID #60 tabs 08/02/24 10/23/24 Rx metoprolol succinate 25 mg 12.5 mg (1/2 x 25 mg) PO QAM #90 08/02/24 10/23/24 Rx tablet,extended release 24 hr tabs vitamin B complex 1 cap PO QAM #30 caps 08/02/24 10/23/24 Rx Milk of Magnesia 30 ml PO DAILY PRN Constipation 10/23/24 10/23/24 History acetaminophen 325 mg tablet 650 mg PO DAILY PRN temp >100 10/23/24 10/23/24 History (Tylenol) bisacodyl 10 mg rectal suppository 10 mg MA DAILY PRN Constipation 10/23/24 10/23/24 History (Dulcolax (bisacodyl)) buspirone 10 mg tablet 10 mg PO TID 10/23/24 10/23/24 History docusate sodium 100 mg capsule 100 mg PO DAILY PRN Constipation 10/23/24 10/23/24 History (Colace) insulin degludec 100 unit/mL (3 16 unit subcut QAM 10/23/24 10/23/24 History mL) subcutaneous pen (Tresiba FlexTouch U-100 insulin) lisinopril 20 mg tablet 10 mg PO DAILY 10/23/24 10/23/24 History mirabegron 50 mg tablet,extended 50 mg PO UD 10/23/24 10/23/24 History release 24 hr polyethylene glycol 3350 17 17 g PO QAM 10/23/24 10/23/24 History gram/dose oral powder (Miralax) risperidone 0.25 mg tablet 0.25 mg PO HS 10/23/24 10/23/24 History cefuroxime axetil 250 mg tablet 250 mg PO BIDM #24 tabs 10/28/24 Rx fluconazole 100 mg tablet 100 mg PO QAM #12 tabs 10/28/24 Rx (Diflucan) pantoprazole 40 mg tablet,delayed 40 mg PO BID #60 tabs 10/28/24 Rx release Hospital Stay Data Consultations 10/23/24 13:34 ED Decision to Admit Stat 10/23/24 13:43 Consult Urology Routine 10/23/24 14:54 Consult Gastroenterology Routine 10/23/24 17:21 Consult Vascular Surgery Routine 10/25/24 16:08 Consult Infectious Diseases Routine Procedures Performed Operation Date: 10/23/24 15:00 Actual Procedures p Cystoscopy, Retrograde Pyelogram, Insertion of Left Ureteral Stent(Left) - Fernando Peters MD Diagnostic Imagining Performed 10/23/24 FL retrograde includes kub Routine 10/23/24 10:11 CT angio head w con Stat CT angio neck with con Stat 10/23/24 10:12 CT head/brain wo con Stat 10/23/24 11:11 CT abd pelvis wo con Stat CT chest diagnostic wo con Stat Retrograde Pyelogram 10/23/24 00:00 FL retrograde includes kub CLINICAL HISTORY: STONEleft-sided cystourethrogram COMPARISON STUDY: None FLUOROSCOPY TIME: 11.8 seconds FLUOROSCOPY IMAGES: 1 EXPOSURE DOSE: 2.91 mGy FINDINGS: Proximal portion of a left ureteral stent appears to be in satisfactory positioning. The distal portion was not imaged. Left-sided hydronephrosis. IMPRESSION: Fluoroscopic assistance as above. ACT 112: Negative or not required by law. Electronically signed by: Elver Herron M.D. 10/24/2024 8:27 AM Chest X-Ray 10/23/24 10:11 XR chest 1V portable HISTORY: 89 years-old Male weakness COMPARISON: 08/01/2024 TECHNIQUE: AP view the chest FINDINGS: Cardiac silhouette is enlarged. Pulmonary vascular congestion. Small pleural effusions with left basilar consolidation. No pneumothorax. Healed chronic left rib fractures. IMPRESSION: 1. Cardiomegaly with pulmonary vascular congestion. 2. Small pleural effusions with left basilar predominant consolidation. 3. Chronic left rib fractures. ACT 112: Negative or not required by law. The above report was generated using voice recognition software. It may contain grammatical, syntax or spelling errors. Electronically signed by: Elver Herron M.D. 10/23/2024 10:52 AM Head CTA 10/23/24 10:11 CT angio head w con, CT head/brain wo con, CT angio neck with con CLINICAL HISTORY: 89 years-old Male with ams, weak. Acute stroke like symptoms with weakness COMPARISON STUDY: Head CT 08/09/2024 TECHNIQUE: Unenhanced axial CT scan of the brain is performed. Subsequently, following the IV administration of 112 cc of Optiray, CT angiogram of the head and neck was performed. Images are reviewed in the axial, sagittal, and coronal planes. 3-D MIPS images are created and assessed. IV contrast was administered without complication. All measurements were obtained according to NASCET criteria. A dose lowering technique was utilized adhering to the principles of ALARA. CT DOSE: 3858.43 mGy.cm FINDINGS: CT BRAIN: There is no acute intracranial hemorrhage, midline shift, hydrocephalus, intracranial mass, territorial ischemia or abnormal extra-axial collections. Involutional changes with chronic microvascular ischemic disease. No abnormal intra-axial or extra-axial enhancement. Mastoid air cells and middle ear cavities are clear. No calvarial fracture. Prior bilateral lens repair. Paranasal sinuses are clear. CT ANGIOGRAM OF THE HEAD AND NECK: Three-vessel morphology of the thoracic aortic arch. Patency of the innominate and image subclavian arteries. Atherosclerotic plaque of the carotid bulbs. There is less than 50% stenosis on the right and approximately 70% stenosis on the right. The bilateral anterior and middle cerebral arteries are also patent. Calcified plaque of the V4 segment right vertebral artery causes mild stenosis. Short segment high-grade stenosis of the P1 segment left posterior tibial artery image 140. Additional focus of short segment high-grade stenosis of the right posterior cerebral artery on image 128. Cerebral venous sinuses are patent. Lung apices are clear without pneumothorax. Debris noted within the mildly distended upper thoracic esophagus which demonstrates circumferential wall thickening. Unremarkable soft tissues. Degenerative changes of the cervical spine without acute fracture. IMPRESSION: 1. No acute intracranial abnormality. 2. Atherosclerotic plaque of the right carotid bulb results in approximately 70% stenosis. 3. Areas of short segment high-grade stenosis noted within the posterior cerebral arteries. 4. No aneurysm, dissection or arterial occlusion. 5. Debris-filled mildly distended esophagus with wall thickening. Please refer to the chest CT of same day for additional findings. ACT 112: Negative or not required by law. The above report was generated using voice recognition software. It may contain grammatical, syntax or spelling errors. Electronically signed by: Elver Herron M.D. 10/23/2024 12:56 PM Neck CTA 10/23/24 10:11 CT angio head w con, CT head/brain wo con, CT angio neck with con CLINICAL HISTORY: 89 years-old Male with ams, weak. Acute stroke like symptoms with weakness COMPARISON STUDY: Head CT 08/09/2024 TECHNIQUE: Unenhanced axial CT scan of the brain is performed. Subsequently, following the IV administration of 112 cc of Optiray, CT angiogram of the head and neck was performed. Images are reviewed in the axial, sagittal, and coronal planes. 3-D MIPS images are created and assessed. IV contrast was administered without complication. All measurements were obtained according to NASCET criteria. A dose lowering technique was utilized adhering to the principles of ALARA. CT DOSE: 3858.43 mGy.cm FINDINGS: CT BRAIN: There is no acute intracranial hemorrhage, midline shift, hydrocephalus, intracranial mass, territorial ischemia or abnormal extra-axial collections. Involutional changes with chronic microvascular ischemic disease. No abnormal intra-axial or extra-axial enhancement. Mastoid air cells and middle ear cavities are clear. No calvarial fracture. Prior bilateral lens repair. Paranasal sinuses are clear. CT ANGIOGRAM OF THE HEAD AND NECK: Three-vessel morphology of the thoracic aortic arch. Patency of the innominate and image subclavian arteries. Atherosclerotic plaque of the carotid bulbs. There is less than 50% stenosis on the right and approximately 70% stenosis on the right. The bilateral anterior and middle cerebral arteries are also patent. Calcified plaque of the V4 segment right vertebral artery causes mild stenosis. Short segment high-grade stenosis of the P1 segment left posterior tibial artery image 140. Additional focus of short segment high-grade stenosis of the right posterior cerebral artery on image 128. Cerebral venous sinuses are patent. Lung apices are clear without pneumothorax. Debris noted within the mildly distended upper thoracic esophagus which demonstrates circumferential wall thickening. Unremarkable soft tissues. Degenerative changes of the cervical spine without acute fracture. IMPRESSION: 1. No acute intracranial abnormality. 2. Atherosclerotic plaque of the right carotid bulb results in approximately 70% stenosis. 3. Areas of short segment high-grade stenosis noted within the posterior cerebral arteries. 4. No aneurysm, dissection or arterial occlusion. 5. Debris-filled mildly distended esophagus with wall thickening. Please refer to the chest CT of same day for additional findings. ACT 112: Negative or not required by law. The above report was generated using voice recognition software. It may contain grammatical, syntax or spelling errors. Electronically signed by: Elver Herron M.D. 10/23/2024 12:[address] 10/23/24 10:12 CT angio head w con, CT head/brain wo con, CT angio neck with con CLINICAL HISTORY: 89 years-old Male with ams, weak. Acute stroke like symptoms with weakness COMPARISON STUDY: Head CT 08/09/2024 TECHNIQUE: Unenhanced axial CT scan of the brain is performed. Subsequently, following the IV administration of 112 cc of Optiray, CT angiogram of the head and neck was performed. Images are reviewed in the axial, sagittal, and coronal planes. 3-D MIPS images are created and assessed. IV contrast was administered without complication. All measurements were obtained according to NASCET criteria. A dose lowering technique was utilized adhering to the principles of ALARA. CT DOSE: 3858.43 mGy.cm FINDINGS: CT BRAIN: There is no acute intracranial hemorrhage, midline shift, hydrocephalus, intracranial mass, territorial ischemia or abnormal extra-axial collections. Involutional changes with chronic microvascular ischemic disease. No abnormal intra-axial or extra-axial enhancement. Mastoid air cells and middle ear cavities are clear. No calvarial fracture. Prior bilateral lens repair. Paranasal sinuses are clear. CT ANGIOGRAM OF THE HEAD AND NECK: Three-vessel morphology of the thoracic aortic arch. Patency of the innominate and image subclavian arteries. Atherosclerotic plaque of the carotid bulbs. There is less than 50% stenosis on the right and approximately 70% stenosis on the right. The bilateral anterior and middle cerebral arteries are also patent. Calcified plaque of the V4 segment right vertebral artery causes mild stenosis. Short segment high-grade stenosis of the P1 segment left posterior tibial artery image 140. Additional focus of short segment high-grade stenosis of the right posterior cerebral artery on image 128. Cerebral venous sinuses are patent. Lung apices are clear without pneumothorax. Debris noted within the mildly distended upper thoracic esophagus which demonstrates circumferential wall thickening. Unremarkable soft tissues. Degenerative changes of the cervical spine without acute fracture. IMPRESSION: 1. No acute intracranial abnormality. 2. Atherosclerotic plaque of the right carotid bulb results in approximately 70% stenosis. 3. Areas of short segment high-grade stenosis noted within the posterior cerebral arteries. 4. No aneurysm, dissection or arterial occlusion. 5. Debris-filled mildly distended esophagus with wall thickening. Please refer to the chest CT of same day for additional findings. ACT 112: Negative or not required by law. The above report was generated using voice recognition software. It may contain grammatical, syntax or spelling errors. Electronically signed by: Elver Herron M.D. 10/23/2024 12:56 PM Abdomen/Pelvis CT 10/23/24 11:11 CT chest diagnostic wo con, CT abd pelvis wo con CLINICAL HISTORY: 89 years-old Male with weak, ams, SPARKLE. Acute chest abdominal pain with weakness TECHNIQUE: Multiaxial CT images of the chest, abdomen and pelvis were performed without contrast. A dose lowering technique was utilized adhering to the principles of ALARA. COMPARISON: CT abdomen and pelvis 12/16/2023, CT chest 06/29/2021 FINDINGS: CT CHEST: No thyroid nodule or lymphadenopathy. Cardiomegaly with extensive coronary artery calcifications. Trace pericardial effusion. Atherosclerosis of the thoracic aorta with mild fusiform dilation of the ascending segment, 4.2 x 4.2 cm, unchanged from prior. Mild dilation of the pulmonary arteries suggestive of pulmonary arterial hypertension. No lymphadenopathy. Trace right and moderate left pleural effusions. Areas of mild pleural thickening noted on the left. No pneumothorax. Left right dependent bibasilar opacities suggestive of atelectasis. Intralobular septal thickening. Esophageal wall thickening noted along with esophageal distention and mild adjacent inflammatory stranding debris-filled upper to mid esophagus. Unremarkable soft tissues. Healing subacute-appearing bilateral rib fractures. No acute fracture identified. CT ABDOMEN/PELVIS: There is no pneumatosis or pneumoperitoneum. Unremarkable spleen, atrophic pancreas and adrenal glands. Distended gallbladder with cholelithiasis. A tiny punctate stone is seen within the alexys hepatis which is unchanged from prior. Unremarkable liver. 3 mm nonobstructing calculus of the inferior pole right kidney. There is a punctate calcification involving the left renal sinus on image 147. There is decreased amount of left renal calculi compared to the prior. There is moderate left-sided hydroureteronephrosis with perinephric and periureteral stranding. There is an obstructing 7 mm distal left ureteral calculus on image 288. Additional clustered calcifications within the region of the distal UPJ versus dependent bladder measuring up to 5 mm. A Balderrama catheter is noted within the bladder. Wall thickening of the bladder with perivesicular stranding. Prostatomegaly. Atherosclerosis of the aorta. Moderate colonic fecal retention. No bowel obstruction or bowel wall thickening. Unremarkable soft tissues. No acute fracture. 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 IMPRESSION: 1. Cardiomegaly with fusiform dilation of the ascending thoracic aorta, unchanged from prior measuring 4.2 cm. 2. Mild interstitial pulmonary edema with trace right and moderate left pleural effusions with left greater than right bibasilar atelectasis. 3. Mild pleural thickening at the left lung base. 4. Distended upper to mid debris filled esophagus with wall thickening and adjacent inflammatory stranding. Findings could be correlated with endoscopy. 5. Healing subacute bilateral rib fractures without pneumothorax. 6. [id number] left-sided hydroureteronephrosis secondary to an obstructing 7 mm distal left ureteral calculus with additional calcifications in the region of the distal UPJ versus dependent urinary bladder measuring up to 5 mm. 7. No bowel obstruction or bowel wall thickening. 8. Additional findings as above. ACT 112: Negative or not required by law. Electronically signed by: Elver Herron M.D. 10/23/2024 1:[address] 10/23/24 11:11 CT chest diagnostic wo con, CT abd pelvis wo con CLINICAL HISTORY: 89 years-old Male with weak, ams, SPARKLE. Acute chest abdominal pain with weakness TECHNIQUE: Multiaxial CT images of the chest, abdomen and pelvis were performed without contrast. A dose lowering technique was utilized adhering to the principles of ALARA. COMPARISON: CT abdomen and pelvis 12/16/2023, CT chest 06/29/2021 FINDINGS: CT CHEST: No thyroid nodule or lymphadenopathy. Cardiomegaly with extensive coronary artery calcifications. Trace pericardial effusion. Atherosclerosis of the thoracic aorta with mild fusiform dilation of the ascending segment, 4.2 x 4.2 cm, unchanged from prior. Mild dilation of the pulmonary arteries suggestive of pulmonary arterial hypertension. No lymphadenopathy. Trace right and moderate left pleural effusions. Areas of mild pleural thickening noted on the left. No pneumothorax. Left right dependent bibasilar opacities suggestive of atelectasis. Intralobular septal thickening. Esophageal wall thickening noted along with esophageal distention and mild adjacent inflammatory stranding debris-filled upper to mid esophagus. Unremarkable soft tissues. Healing subacute-appearing bilateral rib fractures. No acute fracture identified. CT ABDOMEN/PELVIS: There is no pneumatosis or pneumoperitoneum. Unremarkable spleen, atrophic pancreas and adrenal glands. Distended gallbladder with cholelithiasis. A tiny punctate stone is seen within the alexys hepatis which is unchanged from prior. Unremarkable liver. 3 mm nonobstructing calculus of the inferior pole right kidney. There is a punctate calcification involving the left renal sinus on image 147. There is decreased amount of left renal calculi compared to the prior. There is moderate left-sided hydroureteronephrosis with perinephric and periureteral stranding. There is an obstructing 7 mm distal left ureteral calculus on image 288. Additional clustered calcifications within the region of the distal UPJ versus dependent bladder measuring up to 5 mm. A Balderrama catheter is noted within the bladder. Wall thickening of the bladder with perivesicular stranding. Prostatomegaly. Atherosclerosis of the aorta. Moderate colonic fecal retention. No bowel obstruction or bowel wall thickening. Unremarkable soft tissues. No acute fracture. 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 IMPRESSION: 1. Cardiomegaly with fusiform dilation of the ascending thoracic aorta, unchanged from prior measuring 4.2 cm. 2. Mild interstitial pulmonary edema with trace right and moderate left pleural effusions with left greater than right bibasilar atelectasis. 3. Mild pleural thickening at the left lung base. 4. Distended upper to mid debris filled esophagus with wall thickening and adjacent inflammatory stranding. Findings could be correlated with endoscopy. 5. Healing subacute bilateral rib fractures without pneumothorax. 6. [id number] left-sided hydroureteronephrosis secondary to an obstructing 7 mm distal left ureteral calculus with additional calcifications in the region of the distal UPJ versus dependent urinary bladder measuring up to 5 mm. 7. No bowel obstruction or bowel wall thickening. 8. Additional findings as above. ACT 112: Negative or not required by law. Electronically signed by: Elver Herron M.D. 10/23/2024 1:08 PM Discharge Instructions Given to Patient (Per Discharging Provider) Mr. Quach, You are being discharged. Please continue with the antibiotics and antifungal mediations as prescribed for an additional 12 days. Gastroenterology would like you to continue with the pantoprazole 40 mg twice a day. Please keep close follow-up with gastroenterology after discharge. Other medication changes are listed below. Please keep close follow-up with urology as scheduled after discharge. Please continue with any instructions provided to you by urology for your upcoming procedure. Please also keep close follow-up with your scheduled psychiatry provider as well after discharge. Finally, please also keep close follow up with your primary care provider after discharge. Please do not hesitate to come back to the emergency room if your symptoms worsen or return. It was a pleasure taking care of you while you were here. Total Time Total Time Spent Total Time Spent (In Minutes): 65
[2024-10-28 16:01] VITALS: PULSE 50
== END 2024-10-28 16:25 | DRG 853 ==
LOC: ED 10:03 → OR 14:41 → SUATTDRO 14:42 → 2S 14:42 → OR 15:08